=== PATIENT | female | born 1950 | race African-American/Black ===

== ENCOUNTER 2017-07-26 14:54 | Inpatient (IN) | payer MEDICARE, MEDICAID ==
[~2017-07-26] VITALS: Ht 162.6 cm; Wt 107.5 kg
[~2017-07-26 14:54] MED LIST: APIX5TAB PO; DILT120C61 PO; FURO40TA5 PO; METO-539 PO; POTA8TAB8 PO
[2017-07-26] MEDS ORDERED: SODIUM CHLORIDE 0.9% 1,000 ML IV ONE (15:49)
[2017-07-26] MEDS ORDERED: SODIUM CHLORIDE 0.9% 1000ML BAG (SEPSIS BOLUS) IV ONE (16:00)
[2017-07-26 16:16] LABS: BASOPHILS % 0.1 % (0.0-2.0); EOSINOPHILS % 1.7 % (0.0-5.0); HEMATOCRIT. 29.2 % (36.0-48.0); HEMOGLOBIN. 9.4 g/dL (12.0-16.0); LYMPHOCYTES % 32.1 % (20.0-50.0); MEAN CORPUSCULAR VOLUME 83.7 fL (81.0-99.0); MEAN PLATELET VOLUME 7.4 fl (7.4-10.4); MONOCYTES % 12.1 % (2.0-8.0); PLATELET 228 x1000/uL (130-400); RED BLOOD CELL COUNT 3.48 mill/uL (4.2-5.4); RED CELL DISTRIBUTION WIDTH 20.9 % (11.6-14.6)
[2017-07-26 16:21] LABS: PROTHROMBIN TIME 10.3 sec (9.4-11.6)
[2017-07-26 16:36] LABS: KETONES URINE NEGATIVE (NEGATIVE); LEUKOCYTE ESTERASE URINE NEGATIVE (NEGATIVE); NITRITE URINE NEGATIVE (NEGATIVE); OCCULT BLOOD URINE NEGATIVE (NEGATIVE); PROTEIN URINE NEGATIVE (NEGATIVE); SPECIFIC GRAVITY URINE 1.018 (1.005-1.030)
[2017-07-26 16:39] LABS: CHLORIDE 107 mEq/L (98-107); TROPONIN I < 0.02 ng/mL (0.00-0.04)
[2017-07-26 16:41] LABS: CLARITY URINE CLEAR (CLEAR); COLOR URINE YELLOW (YELLOW)
[2017-07-26] MEDS ORDERED: CALCIUM GLUCONATE 100MG/ML 10ML VIAL IV ONE (17:45)
[2017-07-26] MEDS ORDERED: CALCIUM GLUCONATE 1,000 MG in SODIUM CHLORIDE 0.9% 50 ML IV SCH (17:45)
[2017-07-26 21:00] VITALS: BP 117/66
[2017-07-26] MEDS ORDERED: HYDROCODONE/ACETAMINOPHEN 5/325MG TABLET PO ONE (21:45)
[2017-07-26 22:30] VITALS: BP 117/66
[2017-07-27] VITALS (13 sets, daily range): BP systolic 77–125; BP diastolic 34–94
[2017-07-27] MEDS ORDERED: SODIUM CHLORIDE 0.9% 200 ML IV NR (12:15)
[2017-07-27] MEDS: SODIUM CHLORIDE 0.9% 1,000 ML IV SCH (12:44)
[2017-07-27 13:21] LABS: BASOPHILS % 0.1 % (0.0-2.0); EOSINOPHILS % 1.4 % (0.0-5.0); HEMATOCRIT. 25.7 % (36.0-48.0); HEMOGLOBIN. 8.3 g/dL (12.0-16.0); LYMPHOCYTES % 36.1 % (20.0-50.0); MEAN CORPUSCULAR HEMOGLOBIN 27.2 pg (28.0-32.0); MEAN CORPUSCULAR VOLUME 84.2 fL (81.0-99.0); MEAN PLATELET VOLUME 7.5 fl (7.4-10.4); MONOCYTES % 13.3 % (2.0-8.0); NEUTROPHILS % 49.1 % (40.0-76.0); PLATELET 207 x1000/uL (130-400); RED BLOOD CELL COUNT 3.05 mill/uL (4.2-5.4); RED CELL DISTRIBUTION WIDTH 20.9 % (11.6-14.6)
[2017-07-27 13:35] LABS: CHLORIDE 111 mEq/L (98-107); CREATINE KINASE 27 IU/L (26-192); CREATINE KINASE MB FRACTION 0.8 ng/mL (0.5-3.6); TROPONIN I < 0.02 ng/mL (0.00-0.04)
[2017-07-27 13:45] LABS: DIGOXIN 0.2 ng/mL (0.9-2.0)
[2017-07-27] MEDS: NICOTINE 14MG PATCH TD SCH (13:55)
[2017-07-27] MEDS ORDERED: BUDE6HFA INH (14:19)
[2017-07-27] MEDS ORDERED: HYDR-4005 PO (14:19)
[2017-07-27] MEDS ORDERED: ALBU18HF2 IH (14:19)
[2017-07-27] MEDS ORDERED: TADA20TA31 PO (14:19)
[2017-07-27] MEDS ORDERED: BENA1TAB18 PO (14:19)
[2017-07-27] MEDS ORDERED: AMBR10TA3 PO (14:19)
[2017-07-27] MEDS ORDERED: NICO-645 TD (14:22)
[2017-07-27] MEDS: HYDROCODONE/APAP 7.5/325MG 1 TAB TABLET PO PRN (14:39)
[2017-07-27] MEDS ORDERED: LORAZEPAM 2MG/ML CPJ IV PRN (15:00)
[2017-07-27] MEDS ORDERED: IPRATROPIUM/ALBUTEROL 0.5-3(2.5)MG/3ML NEB HHN PRN (15:00)
[2017-07-27] MEDS: FOLIC ACID 1MG TABLET PO SCH (16:55)
[2017-07-27] MEDS: THIAMINE HCL 100MG TABLET PO SCH (16:55)
[2017-07-27] MEDS: MULTIVITAMINS,THER W-MINERALS TABLET PO SCH (16:55)
[2017-07-27] MEDS: MIDODRINE HCL 2.5MG TABLET PO SCH (17:55)
[2017-07-27] MEDS ORDERED: PHENYLEPHRINE 10 MG in DEXT 5% WATER 249 ML IV PRN (19:00)
[2017-07-27] MEDS ORDERED: DIGOXIN 500MCG/2ML AMP IV NR (19:00)
[2017-07-27] MEDS ORDERED: DILTIAZEM HCL 125 MG in DEXT 5% WATER 100 ML IV PRN (19:00)
[2017-07-27] MEDS ORDERED: LEVOFLOXACIN 250MG PREMIX 50 ML IV SCH (20:00)
[2017-07-27 20:15] LABS: HEMATOCRIT 26.8 % (36.0-48.0); HEMOGLOBIN 8.8 g/dL (12.0-16.0)
[2017-07-27 20:27] LABS: CREATINE KINASE 33 IU/L (26-192); CREATINE KINASE MB FRACTION 0.9 ng/mL (0.5-3.6); TROPONIN I < 0.02 ng/mL (0.00-0.04)
[2017-07-27] MEDS: BUDESONIDE 0.5MG/2ML NEB HHN SCH (21:32)
[2017-07-27] MEDS: IPRATROPIUM/ALBUTEROL 0.5-3(2.5)MG/3ML NEB HHN SCH (21:32)
[2017-07-27] MEDS: DILTIAZEM HCL 125 MG in SODIUM CHLORIDE 0.9% 100 ML IV PRN (23:47)
[2017-07-28] VITALS (86 sets, daily range): BP systolic 61–169; BP diastolic 16–113
[2017-07-28] MEDS: HYDROCODONE/APAP 7.5/325MG 1 TAB TABLET PO PRN ×4 (02:04→21:51)
[2017-07-28] MEDS: IPRATROPIUM/ALBUTEROL 0.5-3(2.5)MG/3ML NEB HHN SCH ×4 (02:22→20:31)
[2017-07-28] MEDS ORDERED: PHENYLEPHRINE 40 MG in DEXT 5% WATER 250 ML IV PRN (04:00)
[2017-07-28 05:44] LABS: BASOPHILS % 0.3 % (0.0-2.0); EOSINOPHILS % 1.5 % (0.0-5.0); HEMATOCRIT. 27.2 % (36.0-48.0); HEMOGLOBIN. 8.9 g/dL (12.0-16.0); LYMPHOCYTES % 23.7 % (20.0-50.0); MEAN CORPUSCULAR HEMOGLOBIN 27.8 pg (28.0-32.0); MEAN CORPUSCULAR VOLUME 84.9 fL (81.0-99.0); MEAN PLATELET VOLUME 7.6 fl (7.4-10.4); MONOCYTES % 12.3 % (2.0-8.0); NEUTROPHILS % 62.2 % (40.0-76.0); PLATELET 220 x1000/uL (130-400); RED CELL DISTRIBUTION WIDTH 20.8 % (11.6-14.6)
[2017-07-28 06:08] LABS: CHLORIDE 110 mEq/L (98-107)
[2017-07-28] MEDS: ACETAMINOPHEN 325MG TABLET PO PRN ×2 (06:38→17:02)
[2017-07-28] MEDS: SODIUM CHLORIDE 0.9% 1,000 ML IV SCH (07:14)
[2017-07-28] MEDS: FOLIC ACID 1MG TABLET PO SCH (08:35)
[2017-07-28] MEDS: THIAMINE HCL 100MG TABLET PO SCH (08:35)
[2017-07-28] MEDS: NICOTINE 14MG PATCH TD SCH (08:35)
[2017-07-28] MEDS: MULTIVITAMINS,THER W-MINERALS TABLET PO SCH (08:35)
[2017-07-28] MEDS: MIDODRINE HCL 2.5MG TABLET PO SCH (08:39)
[2017-07-28] MEDS: BUDESONIDE 0.5MG/2ML NEB HHN SCH ×2 (08:44→20:24)
[2017-07-28] MEDS ORDERED: DIGOXIN 500MCG/2ML AMP IV NR (10:15)
[2017-07-28] MEDS: ENOXAPARIN 100MG/ML SYR SUBCUT SCH ×2 (11:35→20:45)
[2017-07-28] MEDS: DILTIAZEM HCL 125 MG in SODIUM CHLORIDE 0.9% 100 ML IV PRN ×2 (15:04→23:35)
[2017-07-28] MEDS ORDERED: LEVOFLOXACIN 500MG PREMIX 100 ML IV SCH (16:00)
[2017-07-28] MEDS: CEFAZOLIN 1000MG PREMIX 50 ML IV SCH (18:05)
[2017-07-28] MEDS ORDERED: DILTIAZEM HCL 5MG/ML 5ML VIAL IV NR (21:55)
[2017-07-28] MEDS ORDERED: FUROSEMIDE 40MG/4ML VIAL IVP NR (23:00)
[2017-07-28 23:39] LABS: BG BASE EXCESS -3.7 mmol/L (-2.0-2.0); BG CARBOXYHEMOGLOBIN 0.5 % (0.5-1.5); BG DEOXYHEMOGLOBIN 9.4 % (0.0-5.0); BG FRACTION INSPIRED OXYGEN 55; BG HCO3 ACT 25.3 mmol/L (22.0-26.0); BG METHEMOGLOBIN 0.3 % (0.0-1.5); BG OXYGEN SATURATION 90.5 % (92.0-98.5); BG OXYHEMOGLOBIN 89.8 % (94.0-97.0); BG PCO2 66.8 mmHg (35.0-45.0); BG PH 7.197 (7.350-7.450); BG PO2 70.7 mmHg (75.0-100.0); BG SAMPLE SITE LEFT RADIAL; BG TOTAL HEMOGLOBIN 11.5 g/dL (12.0-18.0); BG VENT MODE MASK - BIPAP
[2017-07-29] VITALS (91 sets, daily range): BP systolic 89–176; BP diastolic 34–104
[2017-07-29] MEDS ORDERED: NOREPINEPHRINE 32 MG in DEXT 5% WATER 500 ML IV PRN (00:15)
[2017-07-29 01:31] LABS: BG CARBOXYHEMOGLOBIN 0.3 % (0.5-1.5); BG FRACTION INSPIRED OXYGEN 90; BG HCO3 ACT 25.8 mmol/L (22.0-26.0); BG METHEMOGLOBIN 0.4 % (0.0-1.5); BG OXYHEMOGLOBIN 98.3 % (94.0-97.0); BG PCO2 66.5 mmHg (35.0-45.0); BG PH 7.207 (7.350-7.450); BG PO2 190.7 mmHg (75.0-100.0); BG SAMPLE SITE RIGHT RADIAL; BG TIDAL VOLUME(mL) 500 mL; BG VENT MODE VENT - A/C; BG VENT RATE 16 set
[2017-07-29] MEDS: PROPOFOL 10MG/ML 100ML 100 ML IV PRN ×5 (01:36→21:17)
[2017-07-29] MEDS ORDERED: DIGOXIN 500MCG/2ML AMP IV SCH (01:45)
[2017-07-29] MEDS: CEFAZOLIN 1000MG PREMIX 50 ML IV SCH ×3 (02:04→18:03)
[2017-07-29 05:57] LABS: BASOPHILS % 0.3 % (0.0-2.0); HEMATOCRIT. 28.8 % (36.0-48.0); HEMOGLOBIN. 9.1 g/dL (12.0-16.0); MEAN CORPUSCULAR HEMOGLOBIN 27.1 pg (28.0-32.0); MEAN CORPUSCULAR VOLUME 85.5 fL (81.0-99.0); MEAN PLATELET VOLUME 7.7 fl (7.4-10.4); MONOCYTES % 12.2 % (2.0-8.0); NEUTROPHILS % 78.5 % (40.0-76.0); PLATELET 214 x1000/uL (130-400); RED BLOOD CELL COUNT 3.37 mill/uL (4.2-5.4); RED CELL DISTRIBUTION WIDTH 20.4 % (11.6-14.6)
[2017-07-29] MEDS ORDERED: SUCCINYLCHOLINE CHLORIDE 200MG/10ML VIAL IV ONE (06:00)
[2017-07-29] MEDS ORDERED: ETOMIDATE 2MG/ML 10ML VIAL IV ONE (06:00)
[2017-07-29] MEDS ORDERED: FUROSEMIDE 40MG/4ML VIAL IVP SCH ×2 (06:45→08:30)
[2017-07-29 07:14] LABS: BG BASE EXCESS -0.2 mmol/L (-2.0-2.0); BG CARBOXYHEMOGLOBIN 0.4 % (0.5-1.5); BG DEOXYHEMOGLOBIN 3.8 % (0.0-5.0); BG HCO3 ACT 24.4 mmol/L (22.0-26.0); BG METHEMOGLOBIN 0.5 % (0.0-1.5); BG OXYGEN SATURATION 96.2 % (92.0-98.5); BG OXYHEMOGLOBIN 95.3 % (94.0-97.0); BG PCO2 39.7 mmHg (35.0-45.0); BG PH 7.407 (7.350-7.450); BG PO2 79.5 mmHg (75.0-100.0); BG SAMPLE SITE RIGHT BRACHIAL; BG TIDAL VOLUME(mL) 500 mL; BG TOTAL HEMOGLOBIN 9.8 g/dL (12.0-18.0); BG VENT MODE VENT - A/C; BG VENT RATE 16 set
[2017-07-29] MEDS: BUDESONIDE 0.5MG/2ML NEB HHN SCH ×2 (08:09→20:43)
[2017-07-29] MEDS: IPRATROPIUM/ALBUTEROL 0.5-3(2.5)MG/3ML NEB HHN SCH ×2 (08:10)
[2017-07-29] MEDS: MULTIVITAMINS,THER W-MINERALS TABLET PO SCH (09:31)
[2017-07-29] MEDS: FOLIC ACID 1MG TABLET PO SCH (09:31)
[2017-07-29] MEDS: PANTOPRAZOLE SODIUM 40 MG/VIAL IV SCH (09:31)
[2017-07-29] MEDS: NICOTINE 14MG PATCH TD SCH (09:31)
[2017-07-29] MEDS: THIAMINE HCL 100MG TABLET PO SCH (09:31)
[2017-07-29] MEDS: ENOXAPARIN 100MG/ML SYR SUBCUT SCH (09:31)
[2017-07-29] MEDS: DILTIAZEM HCL 125 MG in SODIUM CHLORIDE 0.9% 100 ML IV PRN (10:25)
[2017-07-29] MEDS: IPRATROPIUM BROMIDE (0.02%) 0.5MG/2.5ML NEB HHN SCH ×3 (12:21→20:44)
[2017-07-29] MEDS ORDERED: LORAZEPAM 2MG/ML CPJ IV PRN (15:00)
[2017-07-29] MEDS: DIGOXIN 500MCG/2ML AMP IV SCH (18:03)
[2017-07-29] MEDS: HYDROCODONE/APAP 7.5/325MG 1 TAB TABLET PO PRN (18:50)
[2017-07-29] MEDS: FUROSEMIDE 40MG/4ML VIAL IVP SCH (21:13)
[2017-07-29] MEDS: ENOXAPARIN 120MG/0.8ML SYR SUBCUT SCH (21:15)
[2017-07-30] VITALS (91 sets, daily range): BP systolic 68–128; BP diastolic 26–80
[2017-07-30] MEDS: IPRATROPIUM BROMIDE (0.02%) 0.5MG/2.5ML NEB HHN SCH ×7 (00:41→23:57)
[2017-07-30] MEDS: PROPOFOL 10MG/ML 100ML 100 ML IV PRN ×5 (02:09→20:41)
[2017-07-30 05:41] LABS: BASOPHILS % 0.7 % (0.0-2.0); EOSINOPHILS % 2.1 % (0.0-5.0); HEMATOCRIT. 28.8 % (36.0-48.0); HEMOGLOBIN. 9.2 g/dL (12.0-16.0); LYMPHOCYTES % 29.2 % (20.0-50.0); MEAN CORPUSCULAR HEMOGLOBIN 27.1 pg (28.0-32.0); MEAN CORPUSCULAR VOLUME 84.5 fL (81.0-99.0); MEAN PLATELET VOLUME 7.5 fl (7.4-10.4); MONOCYTES % 11.6 % (2.0-8.0); NEUTROPHILS % 56.4 % (40.0-76.0); PLATELET 223 x1000/uL (130-400); RED BLOOD CELL COUNT 3.41 mill/uL (4.2-5.4); RED CELL DISTRIBUTION WIDTH 21.1 % (11.6-14.6)
[2017-07-30] MEDS: CEFAZOLIN 1000MG PREMIX 50 ML IV SCH ×3 (05:50→18:12)
[2017-07-30] MEDS: DILTIAZEM HCL 125 MG in SODIUM CHLORIDE 0.9% 100 ML IV PRN (06:11)
[2017-07-30 06:18] LABS: DIGOXIN 1.7 ng/mL (0.9-2.0)
[2017-07-30 08:02] LABS: BG BASE EXCESS 4.2 mmol/L (-2.0-2.0); BG CARBOXYHEMOGLOBIN 0.2 % (0.5-1.5); BG DEOXYHEMOGLOBIN 6.1 % (0.0-5.0); BG FRACTION INSPIRED OXYGEN 60; BG HCO3 ACT 28.7 mmol/L (22.0-26.0); BG METHEMOGLOBIN 0.3 % (0.0-1.5); BG OXYGEN SATURATION 93.9 % (92.0-98.5); BG OXYHEMOGLOBIN 93.4 % (94.0-97.0); BG PCO2 42.9 mmHg (35.0-45.0); BG PH 7.443 (7.350-7.450); BG PO2 69.3 mmHg (75.0-100.0); BG SAMPLE SITE RIGHT BRACHIAL; BG TIDAL VOLUME(mL) 500 mL; BG TOTAL HEMOGLOBIN 9.4 g/dL (12.0-18.0); BG VENT MODE VENT - A/C; BG VENT RATE 12 set
[2017-07-30] MEDS: BUDESONIDE 0.5MG/2ML NEB HHN SCH ×2 (08:14→19:49)
[2017-07-30] MEDS: ENOXAPARIN 120MG/0.8ML SYR SUBCUT SCH ×2 (08:34→21:23)
[2017-07-30] MEDS: DILTIAZEM HCL 60MG TABLET PO SCH ×3 (08:34→15:33)
[2017-07-30] MEDS: PANTOPRAZOLE SODIUM 40 MG/VIAL IV SCH (08:34)
[2017-07-30] MEDS: MULTIVITAMINS,THER W-MINERALS TABLET PO SCH (08:34)
[2017-07-30] MEDS: FUROSEMIDE 40MG/4ML VIAL IVP SCH ×2 (08:34→20:42)
[2017-07-30] MEDS: THIAMINE HCL 100MG TABLET PO SCH (08:34)
[2017-07-30] MEDS: FOLIC ACID 1MG TABLET PO SCH (08:35)
[2017-07-30] MEDS: HYDROCODONE/APAP 7.5/325MG 1 TAB TABLET PO PRN ×2 (08:35→15:34)
[2017-07-30] MEDS: NICOTINE 14MG PATCH TD SCH (08:36)
[2017-07-30 13:54] LABS: BG BASE EXCESS 5.1 mmol/L (-2.0-2.0); BG CARBOXYHEMOGLOBIN 0.1 % (0.5-1.5); BG DEOXYHEMOGLOBIN 8.8 % (0.0-5.0); BG FRACTION INSPIRED OXYGEN 45; BG HCO3 ACT 29.2 mmol/L (22.0-26.0); BG METHEMOGLOBIN 0.3 % (0.0-1.5); BG OXYGEN SATURATION 91.2 % (92.0-98.5); BG OXYHEMOGLOBIN 90.8 % (94.0-97.0); BG PCO2 40.8 mmHg (35.0-45.0); BG PH 7.472 (7.350-7.450); BG PO2 60.3 mmHg (75.0-100.0); BG SAMPLE SITE RIGHT RADIAL; BG TIDAL VOLUME(mL) 500 mL; BG TOTAL HEMOGLOBIN 10.8 g/dL (12.0-18.0); BG VENT MODE VENT - A/C; BG VENT RATE 12 set
[2017-07-30] MEDS: DIGOXIN 500MCG/2ML AMP IV SCH (18:12)
[2017-07-30] MEDS: MORPHINE SULFATE 2 MG/ML CPJ (NOT FOR IM USE) IV PRN (20:41)
[2017-07-31] VITALS (92 sets, daily range): BP systolic 88–134; BP diastolic 51–85
[2017-07-31] MEDS: PROPOFOL 10MG/ML 100ML 100 ML IV PRN ×5 (00:40→18:30)
[2017-07-31] MEDS: DILTIAZEM HCL 125 MG in SODIUM CHLORIDE 0.9% 100 ML IV PRN (00:44)
[2017-07-31] MEDS: CEFAZOLIN 1000MG PREMIX 50 ML IV SCH ×3 (02:09→17:23)
[2017-07-31] MEDS: IPRATROPIUM BROMIDE (0.02%) 0.5MG/2.5ML NEB HHN SCH ×5 (03:57→20:42)
[2017-07-31] MEDS: DILTIAZEM HCL 60MG TABLET PO SCH ×3 (05:15→21:01)
[2017-07-31 06:06] LABS: BASOPHILS % 0.6 % (0.0-2.0); EOSINOPHILS % 2.1 % (0.0-5.0); HEMATOCRIT. 28.3 % (36.0-48.0); HEMOGLOBIN. 9.2 g/dL (12.0-16.0); LYMPHOCYTES % 31.2 % (20.0-50.0); MEAN CORPUSCULAR HEMOGLOBIN 27.3 pg (28.0-32.0); MEAN PLATELET VOLUME 7.7 fl (7.4-10.4); MONOCYTES % 9.4 % (2.0-8.0); NEUTROPHILS % 56.7 % (40.0-76.0); PLATELET 250 x1000/uL (130-400); RED BLOOD CELL COUNT 3.37 mill/uL (4.2-5.4); RED CELL DISTRIBUTION WIDTH 20.3 % (11.6-14.6)
[2017-07-31 06:40] LABS: CHLORIDE 106 mEq/L (98-107)
[2017-07-31] MEDS: MORPHINE SULFATE 2 MG/ML CPJ (NOT FOR IM USE) IV PRN ×2 (06:49→20:20)
[2017-07-31 07:01] LABS: DIGOXIN 1.6 ng/mL (0.9-2.0)
[2017-07-31 07:24] LABS: BG BASE EXCESS 5.4 mmol/L (-2.0-2.0); BG CARBOXYHEMOGLOBIN 0.1 % (0.5-1.5); BG DEOXYHEMOGLOBIN 7.2 % (0.0-5.0); BG METHEMOGLOBIN 0.2 % (0.0-1.5); BG OXYGEN SATURATION 92.8 % (92.0-98.5); BG OXYHEMOGLOBIN 92.5 % (94.0-97.0); BG PCO2 44.2 mmHg (35.0-45.0); BG SAMPLE SITE RIGHT RADIAL; BG TIDAL VOLUME(mL) 500 mL; BG TOTAL HEMOGLOBIN 10.7 g/dL (12.0-18.0); BG VENT MODE VENT - A/C; BG VENT RATE 12 set
[2017-07-31] MEDS: FOLIC ACID 1MG TABLET PO SCH (09:35)
[2017-07-31] MEDS: MULTIVITAMINS,THER W-MINERALS TABLET PO SCH (09:35)
[2017-07-31] MEDS: PANTOPRAZOLE SODIUM 40 MG/VIAL IV SCH (09:35)
[2017-07-31] MEDS: FUROSEMIDE 40MG/4ML VIAL IVP SCH ×2 (09:35→20:19)
[2017-07-31] MEDS: THIAMINE HCL 100MG TABLET PO SCH (09:35)
[2017-07-31] MEDS: NICOTINE 14MG PATCH TD SCH (09:36)
[2017-07-31] MEDS: ENOXAPARIN 120MG/0.8ML SYR SUBCUT SCH ×2 (09:37→20:57)
[2017-07-31] MEDS: HYDROCODONE/APAP 7.5/325MG 1 TAB TABLET PO PRN ×2 (10:59→17:45)
[2017-07-31] MEDS: DIGOXIN 500MCG/2ML AMP IV SCH (17:23)
[2017-08-01] VITALS (93 sets, daily range): BP systolic 92–140; BP diastolic 45–78
[2017-08-01] MEDS: IPRATROPIUM BROMIDE (0.02%) 0.5MG/2.5ML NEB HHN SCH ×6 (00:40→20:27)
[2017-08-01] MEDS: MORPHINE SULFATE 2 MG/ML CPJ (NOT FOR IM USE) IV PRN (02:13)
[2017-08-01] MEDS: HYDROCODONE/APAP 7.5/325MG 1 TAB TABLET PO PRN ×2 (02:39→08:57)
[2017-08-01] MEDS: CEFAZOLIN 1000MG PREMIX 50 ML IV SCH ×3 (02:39→17:40)
[2017-08-01] MEDS: DILTIAZEM HCL 60MG TABLET PO SCH ×3 (07:01→21:31)
[2017-08-01 07:45] LABS: BG BASE EXCESS 5.1 mmol/L (-2.0-2.0); BG DEOXYHEMOGLOBIN 4.8 % (0.0-5.0); BG HCO3 ACT 29.4 mmol/L (22.0-26.0); BG METHEMOGLOBIN 0.1 % (0.0-1.5); BG OXYGEN SATURATION 95.2 % (92.0-98.5); BG OXYHEMOGLOBIN 95.1 % (94.0-97.0); BG PCO2 42.4 mmHg (35.0-45.0); BG PH 7.459 (7.350-7.450); BG PO2 77.7 mmHg (75.0-100.0); BG SAMPLE SITE RIGHT RADIAL; BG TIDAL VOLUME(mL) 500 mL; BG TOTAL HEMOGLOBIN 10.2 g/dL (12.0-18.0); BG VENT MODE VENT - A/C; BG VENT RATE 12 set
[2017-08-01] MEDS: THIAMINE HCL 100MG TABLET PO SCH (08:54)
[2017-08-01] MEDS: PANTOPRAZOLE SODIUM 40 MG/VIAL IV SCH (08:54)
[2017-08-01] MEDS: FOLIC ACID 1MG TABLET PO SCH (08:54)
[2017-08-01] MEDS: MULTIVITAMINS,THER W-MINERALS TABLET PO SCH (08:54)
[2017-08-01] MEDS: ENOXAPARIN 120MG/0.8ML SYR SUBCUT SCH ×2 (08:58→21:29)
[2017-08-01] MEDS ORDERED: LIDOCAINE HCL/PF 1% 2ML VIAL ONE (09:00)
[2017-08-01] MEDS: FUROSEMIDE 40MG/4ML VIAL IVP SCH ×2 (09:16→21:28)
[2017-08-01] MEDS: NICOTINE 14MG PATCH TD SCH (09:21)
[2017-08-01] MEDS: PROPOFOL 10MG/ML 100ML 100 ML IV PRN (11:20)
[2017-08-01] MEDS: DIGOXIN 500MCG/2ML AMP IV SCH (17:40)
[2017-08-01 18:27] LABS: BG BASE EXCESS 11.2 mmol/L (-2.0-2.0); BG CARBOXYHEMOGLOBIN 0.5 % (0.5-1.5); BG DEOXYHEMOGLOBIN 4.8 % (0.0-5.0); BG HCO3 ACT 36.7 mmol/L (22.0-26.0); BG METHEMOGLOBIN 0.3 % (0.0-1.5); BG OXYGEN SATURATION 95.2 % (92.0-98.5); BG OXYHEMOGLOBIN 94.4 % (94.0-97.0); BG PCO2 53.5 mmHg (35.0-45.0); BG PH 7.454 (7.350-7.450); BG PO2 78.3 mmHg (75.0-100.0); BG PRESSURE SUPPORT 14; BG SAMPLE SITE RIGHT RADIAL; BG TIDAL VOLUME(mL) 500 mL; BG TOTAL HEMOGLOBIN 10.5 g/dL (12.0-18.0); BG VENT MODE VENT - SIMV; BG VENT RATE 10 set
[2017-08-01] MEDS: HYDROCODONE/APAP 7.5/325MG 1 TAB TABLET NG PRN (21:31)
[2017-08-02] VITALS (72 sets, daily range): BP systolic 84–161; BP diastolic 49–101
[2017-08-02] MEDS: IPRATROPIUM BROMIDE (0.02%) 0.5MG/2.5ML NEB HHN SCH ×7 (00:20→23:34)
[2017-08-02] MEDS: CEFAZOLIN 1000MG PREMIX 50 ML IV SCH ×3 (02:26→18:01)
[2017-08-02] MEDS: HYDROCODONE/APAP 7.5/325MG 1 TAB TABLET NG PRN ×3 (05:05→23:50)
[2017-08-02] MEDS: DILTIAZEM HCL 60MG TABLET PO SCH ×3 (06:23→22:48)
[2017-08-02 08:07] LABS: BG DEOXYHEMOGLOBIN 5.3 % (0.0-5.0); BG FRACTION INSPIRED OXYGEN 40; BG HCO3 ACT 35.2 mmol/L (22.0-26.0); BG METHEMOGLOBIN 0.3 % (0.0-1.5); BG OXYGEN SATURATION 94.7 % (92.0-98.5); BG OXYHEMOGLOBIN 94.4 % (94.0-97.0); BG PCO2 50.6 mmHg (35.0-45.0); BG PO2 74.5 mmHg (75.0-100.0); BG PRESSURE SUPPORT 14; BG SAMPLE SITE RIGHT RADIAL; BG TIDAL VOLUME(mL) 500 mL; BG TOTAL HEMOGLOBIN 10.4 g/dL (12.0-18.0); BG VENT MODE VENT - SIMV; BG VENT RATE 10 set
[2017-08-02] MEDS: MULTIVITAMINS,THER W-MINERALS TABLET PO SCH (09:07)
[2017-08-02] MEDS: THIAMINE HCL 100MG TABLET PO SCH (09:07)
[2017-08-02] MEDS: FUROSEMIDE 40MG/4ML VIAL IVP SCH ×2 (09:07→21:35)
[2017-08-02] MEDS: PANTOPRAZOLE SODIUM 40 MG/VIAL IV SCH (09:07)
[2017-08-02] MEDS: FOLIC ACID 1MG TABLET PO SCH (09:07)
[2017-08-02] MEDS: ENOXAPARIN 120MG/0.8ML SYR SUBCUT SCH ×2 (09:08→21:24)
[2017-08-02] MEDS: NICOTINE 14MG PATCH TD SCH (09:08)
[2017-08-02 11:27] LABS: BG BASE EXCESS 12.3 mmol/L (-2.0-2.0); BG CARBOXYHEMOGLOBIN 0.6 % (0.5-1.5); BG FRACTION INSPIRED OXYGEN 40; BG HCO3 ACT 37.5 mmol/L (22.0-26.0); BG OXYHEMOGLOBIN 95.4 % (94.0-97.0); BG PCO2 51.8 mmHg (35.0-45.0); BG PH 7.477 (7.350-7.450); BG PO2 83.3 mmHg (75.0-100.0); BG PRESSURE SUPPORT 8; BG SAMPLE SITE RIGHT RADIAL; BG TOTAL HEMOGLOBIN 10.6 g/dL (12.0-18.0); BG VENT MODE VENT - CPAP
[2017-08-02] MEDS ORDERED: BISACODYL 10MG SUPP PR PRN (11:30)
[2017-08-02] MEDS: DOCUSATE SODIUM SUGAR FREE 100MG/10ML UDC NG SCH (12:15)
[2017-08-02] MEDS ORDERED: RACEPINEPHRINE 2.25% 0.5ML NEB VIAL HHN ONE (14:45)
[2017-08-02] MEDS ORDERED: RACEPINEPHRINE 2.25% 0.5ML NEB VIAL HHN PRN ×2 (14:45→15:15)
[2017-08-02] MEDS ORDERED: MORPHINE SULFATE 4 MG/ML CPJ (NOT FOR IM USE) IV PRN (14:45)
[2017-08-02] MEDS ORDERED: LORAZEPAM 2MG/ML CPJ IV ONE (14:45)
[2017-08-02] MEDS ORDERED: RACEPINEPHRINE 2.25% 0.5ML NEB VIAL HHN NR (15:15)
[2017-08-02] MEDS ORDERED: LORAZEPAM 2MG/ML CPJ IV NR (15:15)
[2017-08-02 15:36] LABS: BG BILEVEL POS AIRWAY PRESSURE 22/5; BG CARBOXYHEMOGLOBIN 0.6 % (0.5-1.5); BG DEOXYHEMOGLOBIN 10.8 % (0.0-5.0); BG FRACTION INSPIRED OXYGEN 80; BG METHEMOGLOBIN 0.4 % (0.0-1.5); BG OXYGEN SATURATION 89.1 % (92.0-98.5); BG OXYHEMOGLOBIN 88.2 % (94.0-97.0); BG PCO2 > 183.4 mmHg (35.0-45.0); BG PH 6.951 (7.350-7.450); BG SAMPLE SITE RIGHT BRACHIAL; BG TOTAL HEMOGLOBIN 12.3 g/dL (12.0-18.0); BG VENT MODE MASK - BIPAP
[2017-08-02] MEDS ORDERED: PROPOFOL 10MG/ML 100ML 100 ML IV PRN (15:45)
[2017-08-02 15:47] LABS: HEMATOCRIT 36.2 % (36.0-48.0); HEMOGLOBIN 11.3 g/dL (12.0-16.0); MEAN CORPUSCULAR VOLUME 86.3 fL (81.0-99.0); PLATELET 409 x1000/uL (130-400); RED CELL DISTRIBUTION WIDTH 19.7 % (11.6-14.6)
[2017-08-02 16:13] LABS: CHLORIDE 101 mEq/L (98-107)
[2017-08-02 16:54] LABS: BG BASE EXCESS 6.6 mmol/L (-2.0-2.0); BG CARBOXYHEMOGLOBIN 0.4 % (0.5-1.5); BG DEOXYHEMOGLOBIN 5.2 % (0.0-5.0); BG FRACTION INSPIRED OXYGEN 80; BG HCO3 ACT 33.1 mmol/L (22.0-26.0); BG METHEMOGLOBIN 0.3 % (0.0-1.5); BG OXYGEN SATURATION 94.8 % (92.0-98.5); BG OXYHEMOGLOBIN 94.1 % (94.0-97.0); BG PCO2 56.3 mmHg (35.0-45.0); BG PH 7.387 (7.350-7.450); BG PO2 76.7 mmHg (75.0-100.0); BG SAMPLE SITE RIGHT BRACHIAL; BG TIDAL VOLUME(mL) 550 mL; BG VENT MODE VENT - A/C; BG VENT RATE 20 set
[2017-08-02] MEDS: DILTIAZEM HCL 125 MG in SODIUM CHLORIDE 0.9% 100 ML IV PRN (17:14)
[2017-08-02] MEDS: DIGOXIN 500MCG/2ML AMP IV SCH (18:01)
[2017-08-03] VITALS (58 sets, daily range): BP systolic 89–140; BP diastolic 44–81
[2017-08-03] MEDS: CEFAZOLIN 1000MG PREMIX 50 ML IV SCH ×3 (02:18→17:27)
[2017-08-03] MEDS: IPRATROPIUM BROMIDE (0.02%) 0.5MG/2.5ML NEB HHN SCH ×5 (03:53→20:18)
[2017-08-03] MEDS: DILTIAZEM HCL 60MG TABLET PO SCH ×3 (05:05→21:19)
[2017-08-03] MEDS: HYDROCODONE/APAP 7.5/325MG 1 TAB TABLET NG PRN ×3 (05:36→21:22)
[2017-08-03 05:52] LABS: BASOPHILS % 0.3 % (0.0-2.0); EOSINOPHILS % 0.6 % (0.0-5.0); HEMATOCRIT. 30.2 % (36.0-48.0); HEMOGLOBIN. 9.5 g/dL (12.0-16.0); LYMPHOCYTES % 18.1 % (20.0-50.0); MEAN CORPUSCULAR HEMOGLOBIN 26.3 pg (28.0-32.0); MEAN CORPUSCULAR VOLUME 83.3 fL (81.0-99.0); MEAN PLATELET VOLUME 7.5 fl (7.4-10.4); MONOCYTES % 10.8 % (2.0-8.0); NEUTROPHILS % 70.2 % (40.0-76.0); PLATELET 346 x1000/uL (130-400); RED BLOOD CELL COUNT 3.62 mill/uL (4.2-5.4); RED CELL DISTRIBUTION WIDTH 19.3 % (11.6-14.6)
[2017-08-03 06:27] LABS: CHLORIDE 101 mEq/L (98-107)
[2017-08-03 08:06] LABS: BG BASE EXCESS 8.4 mmol/L (-2.0-2.0); BG CARBOXYHEMOGLOBIN 0.3 % (0.5-1.5); BG DEOXYHEMOGLOBIN 1.3 % (0.0-5.0); BG FRACTION INSPIRED OXYGEN 80; BG HCO3 ACT 31.7 mmol/L (22.0-26.0); BG OXYGEN SATURATION 98.7 % (92.0-98.5); BG OXYHEMOGLOBIN 98.4 % (94.0-97.0); BG PCO2 38.9 mmHg (35.0-45.0); BG PH 7.529 (7.350-7.450); BG PO2 132.1 mmHg (75.0-100.0); BG SAMPLE SITE RIGHT BRACHIAL; BG TIDAL VOLUME(mL) 550 mL; BG TOTAL HEMOGLOBIN 11.1 g/dL (12.0-18.0); BG VENT MODE VENT - A/C; BG VENT RATE 18 set
[2017-08-03] MEDS: THIAMINE HCL 100MG TABLET PO SCH (08:29)
[2017-08-03] MEDS: PANTOPRAZOLE SODIUM 40 MG/VIAL IV SCH (08:29)
[2017-08-03] MEDS ORDERED: POTASSIUM CHLORIDE 20MEQ/PACKET PO SCH (08:30)
[2017-08-03] MEDS: DOCUSATE SODIUM SUGAR FREE 100MG/10ML UDC NG SCH (08:30)
[2017-08-03] MEDS: MULTIVITAMINS,THER W-MINERALS TABLET PO SCH (08:30)
[2017-08-03] MEDS: FOLIC ACID 1MG TABLET PO SCH (08:30)
[2017-08-03] MEDS: NICOTINE 14MG PATCH TD SCH (08:31)
[2017-08-03] MEDS: ENOXAPARIN 120MG/0.8ML SYR SUBCUT SCH (08:32)
[2017-08-03] MEDS ORDERED: NON FORMULARY PATIENT HOME MED EA XX SCH (09:15)
[2017-08-03] MEDS ORDERED: PROPOFOL 10MG/ML 100ML 100 ML IV PRN ×2 (09:15→15:39)
[2017-08-03] MEDS: FUROSEMIDE 40MG/4ML VIAL IVP SCH ×2 (09:49→21:17)
[2017-08-03] MEDS: LETAIRIS 10MG TABLET PO SCH (11:22)
[2017-08-03] MEDS: MORPHINE SULFATE 4 MG/ML CPJ (NOT FOR IM USE) IV PRN ×2 (11:30→17:32)
[2017-08-03] MEDS: ALPRAZOLAM 0.25 MG TABLET PO SCH ×2 (13:35→21:20)
[2017-08-03] MEDS: METHYLPREDNISOLONE SOD SUCC 125 MG/2 ML VIAL IV SCH ×2 (13:35→21:18)
[2017-08-03] MEDS: BUDESONIDE 0.5MG/2ML NEB HHN SCH ×2 (15:58→20:18)
[2017-08-03] MEDS: DIGOXIN 500MCG/2ML AMP IV SCH (17:27)
[2017-08-03] MEDS: ENOXAPARIN 100MG/ML SYR SUBCUT SCH (21:18)
[2017-08-04] VITALS (48 sets, daily range): BP systolic 88–135; BP diastolic 30–86
[2017-08-04] MEDS: IPRATROPIUM BROMIDE (0.02%) 0.5MG/2.5ML NEB HHN SCH ×6 (00:29→19:59)
[2017-08-04] MEDS: CEFAZOLIN 1000MG PREMIX 50 ML IV SCH ×3 (02:37→18:16)
[2017-08-04] MEDS: HYDROCODONE/APAP 7.5/325MG 1 TAB TABLET NG PRN ×3 (04:44→22:37)
[2017-08-04 06:01] LABS: BASOPHILS % 0.1 % (0.0-2.0); HEMATOCRIT. 30.4 % (36.0-48.0); LYMPHOCYTES % 12.2 % (20.0-50.0); MEAN CORPUSCULAR HEMOGLOBIN 27.5 pg (28.0-32.0); MEAN PLATELET VOLUME 7.7 fl (7.4-10.4); MONOCYTES % 2.5 % (2.0-8.0); NEUTROPHILS % 85.2 % (40.0-76.0); PLATELET 360 x1000/uL (130-400); RED BLOOD CELL COUNT 3.62 mill/uL (4.2-5.4); RED CELL DISTRIBUTION WIDTH 19.4 % (11.6-14.6)
[2017-08-04 06:22] LABS: CHLORIDE 101 mEq/L (98-107)
[2017-08-04] MEDS: METHYLPREDNISOLONE SOD SUCC 125 MG/2 ML VIAL IV SCH ×3 (06:51→21:43)
[2017-08-04] MEDS: ALPRAZOLAM 0.25 MG TABLET PO SCH ×3 (06:56→21:44)
[2017-08-04] MEDS: DILTIAZEM HCL 60MG TABLET PO SCH ×3 (06:56→21:45)
[2017-08-04] MEDS: BUDESONIDE 0.5MG/2ML NEB HHN SCH ×2 (08:38→19:59)
[2017-08-04 08:45] LABS: BG BASE EXCESS 9.4 mmol/L (-2.0-2.0); BG CARBOXYHEMOGLOBIN 0.3 % (0.5-1.5); BG DEOXYHEMOGLOBIN 5.1 % (0.0-5.0); BG FRACTION INSPIRED OXYGEN 65; BG HCO3 ACT 33.9 mmol/L (22.0-26.0); BG METHEMOGLOBIN 0.3 % (0.0-1.5); BG OXYGEN SATURATION 94.9 % (92.0-98.5); BG OXYHEMOGLOBIN 94.3 % (94.0-97.0); BG PCO2 46.2 mmHg (35.0-45.0); BG PH 7.484 (7.350-7.450); BG PO2 77.2 mmHg (75.0-100.0); BG SAMPLE SITE RIGHT RADIAL; BG TIDAL VOLUME(mL) 550 mL; BG TOTAL HEMOGLOBIN 10.1 g/dL (12.0-18.0); BG VENT MODE VENT - A/C; BG VENT RATE 14 set
[2017-08-04] MEDS: POTASSIUM CHLORIDE 20MEQ TABLET SR PO SCH (09:00)
[2017-08-04] MEDS: LETAIRIS 10MG TABLET PO SCH (09:30)
[2017-08-04] MEDS: MORPHINE SULFATE 4 MG/ML CPJ (NOT FOR IM USE) IV PRN (09:47)
[2017-08-04] MEDS: MULTIVITAMINS,THER W-MINERALS TABLET PO SCH (09:47)
[2017-08-04] MEDS: FOLIC ACID 1MG TABLET PO SCH (09:47)
[2017-08-04] MEDS: PANTOPRAZOLE SODIUM 40 MG/VIAL IV SCH (09:47)
[2017-08-04] MEDS: THIAMINE HCL 100MG TABLET PO SCH (09:47)
[2017-08-04] MEDS: NICOTINE 14MG PATCH TD SCH (09:48)
[2017-08-04] MEDS: ENOXAPARIN 100MG/ML SYR SUBCUT SCH ×3 (09:48→21:43)
[2017-08-04] MEDS: DOCUSATE SODIUM SUGAR FREE 100MG/10ML UDC NG SCH (09:48)
[2017-08-04] MEDS: PROPOFOL 10MG/ML 100ML 100 ML IV PRN ×3 (11:00→18:17)
[2017-08-04] MEDS ORDERED: MAGNESIUM HYDROXIDE 400MG/5ML 30ML UDC PO PRN (13:00)
[2017-08-04] MEDS ORDERED: LACTULOSE 20G/30ML UDC PO SCH (13:00)
[2017-08-05] VITALS (37 sets, daily range): BP systolic 86–125; BP diastolic 52–80
[2017-08-05] MEDS: CEFAZOLIN 1000MG PREMIX 50 ML IV SCH ×3 (02:40→17:23)
[2017-08-05] MEDS: MORPHINE SULFATE 4 MG/ML CPJ (NOT FOR IM USE) IV PRN ×3 (03:09→22:59)
[2017-08-05] MEDS: IPRATROPIUM BROMIDE (0.02%) 0.5MG/2.5ML NEB HHN SCH ×6 (03:53→20:18)
[2017-08-05] MEDS: METHYLPREDNISOLONE SOD SUCC 125 MG/2 ML VIAL IV SCH ×3 (05:36→22:20)
[2017-08-05] MEDS: ALPRAZOLAM 0.25 MG TABLET PO SCH (05:36)
[2017-08-05] MEDS: DILTIAZEM HCL 60MG TABLET PO SCH ×3 (05:37→22:23)
[2017-08-05] MEDS: HYDROCODONE/APAP 7.5/325MG 1 TAB TABLET NG PRN ×3 (05:43→18:47)
[2017-08-05 05:50] LABS: BASOPHILS % 0.2 % (0.0-2.0); HEMATOCRIT. 30.3 % (36.0-48.0); HEMOGLOBIN. 9.8 g/dL (12.0-16.0); LYMPHOCYTES % 11.4 % (20.0-50.0); MEAN CORPUSCULAR HEMOGLOBIN 27.1 pg (28.0-32.0); MEAN PLATELET VOLUME 7.8 fl (7.4-10.4); NEUTROPHILS % 83.4 % (40.0-76.0); PLATELET 372 x1000/uL (130-400); RED CELL DISTRIBUTION WIDTH 19.4 % (11.6-14.6)
[2017-08-05 06:11] LABS: CHLORIDE 103 mEq/L (98-107)
[2017-08-05 07:41] LABS: BG BASE EXCESS 7.5 mmol/L (-2.0-2.0); BG CARBOXYHEMOGLOBIN 0.3 % (0.5-1.5); BG DEOXYHEMOGLOBIN 4.4 % (0.0-5.0); BG FRACTION INSPIRED OXYGEN 65; BG HCO3 ACT 31.9 mmol/L (22.0-26.0); BG METHEMOGLOBIN 0.1 % (0.0-1.5); BG OXYGEN SATURATION 95.6 % (92.0-98.5); BG OXYHEMOGLOBIN 95.2 % (94.0-97.0); BG PCO2 44.3 mmHg (35.0-45.0); BG PH 7.475 (7.350-7.450); BG PO2 85.1 mmHg (75.0-100.0); BG SAMPLE SITE RIGHT RADIAL; BG TIDAL VOLUME(mL) 550 mL; BG TOTAL HEMOGLOBIN 10.4 g/dL (12.0-18.0); BG VENT MODE VENT - A/C; BG VENT RATE 14 set
[2017-08-05] MEDS: BUDESONIDE 0.5MG/2ML NEB HHN SCH ×2 (07:55→20:18)
[2017-08-05] MEDS: DOCUSATE SODIUM SUGAR FREE 100MG/10ML UDC NG SCH (09:00)
[2017-08-05] MEDS ORDERED: FUROSEMIDE 40MG/4ML VIAL IVP SCH (09:00)
[2017-08-05] MEDS: PANTOPRAZOLE SODIUM 40 MG/VIAL IV SCH (09:36)
[2017-08-05] MEDS: POTASSIUM CHLORIDE 20MEQ TABLET SR PO SCH (09:36)
[2017-08-05] MEDS: MULTIVITAMINS,THER W-MINERALS TABLET PO SCH (09:36)
[2017-08-05] MEDS: FOLIC ACID 1MG TABLET PO SCH (09:36)
[2017-08-05] MEDS: THIAMINE HCL 100MG TABLET PO SCH (09:36)
[2017-08-05] MEDS: ENOXAPARIN 100MG/ML SYR SUBCUT SCH (09:37)
[2017-08-05] MEDS: NICOTINE 14MG PATCH TD SCH (09:37)
[2017-08-05] MEDS: LETAIRIS 10MG TABLET PO SCH (09:37)
[2017-08-05] MEDS ORDERED: PROPOFOL 10MG/ML 100ML 100 ML IV PRN (11:55)
[2017-08-05] MEDS: LORAZEPAM 0.5MG TABLET PO PRN (14:59)
[2017-08-06] VITALS (36 sets, daily range): BP systolic 96–151; BP diastolic 58–93
[2017-08-06] MEDS: IPRATROPIUM BROMIDE (0.02%) 0.5MG/2.5ML NEB HHN SCH ×5 (00:20→20:38)
[2017-08-06] MEDS: CEFAZOLIN 1000MG PREMIX 50 ML IV SCH ×3 (02:47→17:02)
[2017-08-06] MEDS: HYDROCODONE/APAP 7.5/325MG 1 TAB TABLET NG PRN ×3 (02:51→15:22)
[2017-08-06 05:48] LABS: HEMOGLOBIN. 9.5 g/dL (12.0-16.0); MEAN CORPUSCULAR HEMOGLOBIN 26.7 pg (28.0-32.0); MEAN CORPUSCULAR VOLUME 84.1 fL (81.0-99.0); MEAN PLATELET VOLUME 7.8 fl (7.4-10.4); PLATELET 381 x1000/uL (130-400); RED BLOOD CELL COUNT 3.57 mill/uL (4.2-5.4); RED CELL DISTRIBUTION WIDTH 19.1 % (11.6-14.6)
[2017-08-06 06:16] LABS: CHLORIDE 107 mEq/L (98-107)
[2017-08-06 06:27] LABS: DIGOXIN 1.2 ng/mL (0.9-2.0)
[2017-08-06] MEDS: MORPHINE SULFATE 4 MG/ML CPJ (NOT FOR IM USE) IV PRN ×2 (06:55→20:04)
[2017-08-06 06:56] LABS: BG BASE EXCESS 8.2 mmol/L (-2.0-2.0); BG CARBOXYHEMOGLOBIN 0.3 % (0.5-1.5); BG DEOXYHEMOGLOBIN 2.8 % (0.0-5.0); BG HCO3 ACT 33.7 mmol/L (22.0-26.0); BG METHEMOGLOBIN 0.2 % (0.0-1.5); BG OXYGEN SATURATION 97.2 % (92.0-98.5); BG OXYHEMOGLOBIN 96.7 % (94.0-97.0); BG PCO2 51.1 mmHg (35.0-45.0); BG PH 7.437 (7.350-7.450); BG PO2 99.3 mmHg (75.0-100.0); BG SAMPLE SITE RIGHT RADIAL; BG TIDAL VOLUME(mL) 550 mL; BG TOTAL HEMOGLOBIN 11.6 g/dL (12.0-18.0); BG VENT MODE VENT - A/C; BG VENT RATE 14 set
[2017-08-06] MEDS: DILTIAZEM HCL 60MG TABLET PO SCH ×3 (06:58→21:59)
[2017-08-06] MEDS: METHYLPREDNISOLONE SOD SUCC 125 MG/2 ML VIAL IV SCH ×3 (06:58→21:58)
[2017-08-06] MEDS: BUDESONIDE 0.5MG/2ML NEB HHN SCH ×2 (07:33→20:38)
[2017-08-06] MEDS: PANTOPRAZOLE SODIUM 40 MG/VIAL IV SCH (08:50)
[2017-08-06] MEDS: ENOXAPARIN 100MG/ML SYR SUBCUT SCH ×2 (08:50→21:58)
[2017-08-06] MEDS: THIAMINE HCL 100MG TABLET PO SCH (08:51)
[2017-08-06] MEDS: FOLIC ACID 1MG TABLET PO SCH (08:51)
[2017-08-06] MEDS: DOCUSATE SODIUM SUGAR FREE 100MG/10ML UDC NG SCH (08:51)
[2017-08-06] MEDS: POTASSIUM CHLORIDE 20MEQ TABLET SR PO SCH ×2 (08:51→09:00)
[2017-08-06] MEDS: MULTIVITAMINS,THER W-MINERALS TABLET PO SCH (08:52)
[2017-08-06] MEDS: NICOTINE 14MG PATCH TD SCH (08:53)
[2017-08-06] MEDS: LETAIRIS 10MG TABLET PO SCH (08:53)
[2017-08-06 09:55] LABS: PLATELET ESTIMATE NORMAL
[2017-08-06] MEDS ORDERED: LIDOCAINE HCL/PF 1% 2ML VIAL ONE (11:30)
[2017-08-07] VITALS (43 sets, daily range): BP systolic 97–163; BP diastolic 25–95
[2017-08-07] MEDS: IPRATROPIUM BROMIDE (0.02%) 0.5MG/2.5ML NEB HHN SCH ×7 (00:03→23:54)
[2017-08-07] MEDS: CEFAZOLIN 1000MG PREMIX 50 ML IV SCH ×3 (01:21→18:08)
[2017-08-07] MEDS: DILTIAZEM HCL 60MG TABLET PO SCH ×3 (06:00→21:06)
[2017-08-07] MEDS: METHYLPREDNISOLONE SOD SUCC 125 MG/2 ML VIAL IV SCH ×3 (06:00→23:37)
[2017-08-07] MEDS: MORPHINE SULFATE 4 MG/ML CPJ (NOT FOR IM USE) IV PRN ×2 (06:01)
[2017-08-07] MEDS: HYDROCODONE/APAP 7.5/325MG 1 TAB TABLET PO PRN ×3 (06:25→18:37)
[2017-08-07] MEDS: BUDESONIDE 0.5MG/2ML NEB HHN SCH ×2 (07:32→19:55)
[2017-08-07 08:02] LABS: BG BASE EXCESS 5.6 mmol/L (-2.0-2.0); BG CARBOXYHEMOGLOBIN 0.2 % (0.5-1.5); BG DEOXYHEMOGLOBIN 3.8 % (0.0-5.0); BG FRACTION INSPIRED OXYGEN 65; BG HCO3 ACT 30.2 mmol/L (22.0-26.0); BG METHEMOGLOBIN 0.3 % (0.0-1.5); BG OXYGEN SATURATION 96.2 % (92.0-98.5); BG OXYHEMOGLOBIN 95.7 % (94.0-97.0); BG PH 7.454 (7.350-7.450); BG PO2 88.1 mmHg (75.0-100.0); BG SAMPLE SITE RIGHT BRACHIAL; BG TIDAL VOLUME(mL) 550 mL; BG TOTAL HEMOGLOBIN 11.7 g/dL (12.0-18.0); BG VENT MODE VENT - A/C; BG VENT RATE 14 set
[2017-08-07] MEDS: POTASSIUM CHLORIDE 20MEQ TABLET SR PO SCH (08:25)
[2017-08-07] MEDS: LETAIRIS 10MG TABLET PO SCH (08:25)
[2017-08-07] MEDS: FOLIC ACID 1MG TABLET PO SCH (08:25)
[2017-08-07] MEDS: PANTOPRAZOLE SODIUM 40 MG/VIAL IV SCH (08:25)
[2017-08-07] MEDS: MULTIVITAMINS,THER W-MINERALS TABLET PO SCH (08:25)
[2017-08-07] MEDS: THIAMINE HCL 100MG TABLET PO SCH (08:25)
[2017-08-07] MEDS: ENOXAPARIN 100MG/ML SYR SUBCUT SCH ×2 (08:26→20:14)
[2017-08-07] MEDS: NICOTINE 14MG PATCH TD SCH (08:38)
[2017-08-07] MEDS: DOCUSATE SODIUM SUGAR FREE 100MG/10ML UDC NG SCH (08:40)
[2017-08-07] MEDS: LORAZEPAM 0.5MG TABLET PO PRN ×2 (12:03→23:39)
[2017-08-07 15:11] LABS: HEMATOCRIT. 32.8 % (36.0-48.0); HEMOGLOBIN. 10.4 g/dL (12.0-16.0); MEAN CORPUSCULAR HEMOGLOBIN 26.6 pg (28.0-32.0); MEAN CORPUSCULAR VOLUME 84.1 fL (81.0-99.0); MEAN PLATELET VOLUME 7.2 fl (7.4-10.4); PLATELET 408 x1000/uL (130-400); RED BLOOD CELL COUNT 3.89 mill/uL (4.2-5.4)
[2017-08-07 15:24] LABS: CHLORIDE 112 mEq/L (98-107)
[2017-08-07 17:17] LABS: PLATELET ESTIMATE NORMAL
[2017-08-07] MEDS ORDERED: TRAZODONE HCL 50MG TABLET PO SCH (21:00)
[2017-08-08] VITALS (55 sets, daily range): BP systolic 91–145; BP diastolic 46–86
[2017-08-08] MEDS: HYDROCODONE/APAP 7.5/325MG 1 TAB TABLET PO PRN ×3 (00:17→12:53)
[2017-08-08] MEDS: CEFAZOLIN 1000MG PREMIX 50 ML IV SCH ×3 (01:02→18:04)
[2017-08-08] MEDS: MORPHINE SULFATE 4 MG/ML CPJ (NOT FOR IM USE) IV PRN ×2 (03:16→10:39)
[2017-08-08] MEDS: IPRATROPIUM BROMIDE (0.02%) 0.5MG/2.5ML NEB HHN SCH ×5 (03:50→19:46)
[2017-08-08] MEDS: METHYLPREDNISOLONE SOD SUCC 125 MG/2 ML VIAL IV SCH ×4 (05:07→23:19)
[2017-08-08] MEDS: DILTIAZEM HCL 60MG TABLET PO SCH (05:07)
[2017-08-08 08:12] LABS: BG BASE EXCESS 2.7 mmol/L (-2.0-2.0); BG CARBOXYHEMOGLOBIN 0.3 % (0.5-1.5); BG DEOXYHEMOGLOBIN 10.1 % (0.0-5.0); BG FRACTION INSPIRED OXYGEN 40; BG HCO3 ACT 26.5 mmol/L (22.0-26.0); BG METHEMOGLOBIN 0.2 % (0.0-1.5); BG OXYGEN SATURATION 89.8 % (92.0-98.5); BG OXYHEMOGLOBIN 89.4 % (94.0-97.0); BG PCO2 37.4 mmHg (35.0-45.0); BG PH 7.468 (7.350-7.450); BG PO2 59.8 mmHg (75.0-100.0); BG SAMPLE SITE RIGHT RADIAL; BG TIDAL VOLUME(mL) 550 mL; BG TOTAL HEMOGLOBIN 10.2 g/dL (12.0-18.0); BG VENT MODE VENT - A/C; BG VENT RATE 12 set
[2017-08-08] MEDS: BUDESONIDE 0.5MG/2ML NEB HHN SCH ×2 (08:47→19:46)
[2017-08-08] MEDS: POTASSIUM CHLORIDE 20MEQ TABLET SR PO SCH (09:35)
[2017-08-08] MEDS: MULTIVITAMINS,THER W-MINERALS TABLET PO SCH (09:35)
[2017-08-08] MEDS: PANTOPRAZOLE SODIUM 40 MG/VIAL IV SCH (09:35)
[2017-08-08] MEDS: FOLIC ACID 1MG TABLET PO SCH (09:35)
[2017-08-08] MEDS: THIAMINE HCL 100MG TABLET PO SCH (09:35)
[2017-08-08] MEDS: ENOXAPARIN 100MG/ML SYR SUBCUT SCH ×2 (09:35→20:24)
[2017-08-08] MEDS: DOCUSATE SODIUM SUGAR FREE 100MG/10ML UDC NG SCH (09:36)
[2017-08-08] MEDS: LETAIRIS 10MG TABLET PO SCH (09:36)
[2017-08-08] MEDS: NICOTINE 14MG PATCH TD SCH (09:37)
[2017-08-08] MEDS ORDERED: DEXTROSE 50% WATER 50ML SYRINGE IV PRN (10:45)
[2017-08-08] MEDS ORDERED: PROPOFOL 10MG/ML 100ML 100 ML IV PRN (11:15)
[2017-08-08] MEDS: BLOOD SUGAR DIAGNOSTIC STRIP TEST SCH ×3 (11:47→20:32)
[2017-08-08] MEDS: INSULIN LISPRO 100 UNITS/ML SUBCUT SCH ×3 (12:14→20:25)
[2017-08-08] MEDS ORDERED: DILTIAZEM HCL 90MG TABLET PO SCH (14:00)
[2017-08-08] MEDS ORDERED: MAGNESIUM HYDROXIDE 400MG/5ML 30ML UDC NG PRN (18:30)
[2017-08-08] MEDS: HYDROCODONE/APAP 7.5/325MG 1 TAB TABLET NG PRN (19:06)
[2017-08-08] MEDS: TRAZODONE HCL 50MG TABLET NG SCH (20:24)
[2017-08-08] MEDS: DILTIAZEM HCL 90MG TABLET NG SCH (21:17)
[2017-08-08] MEDS: PROPOFOL 10MG/ML 100ML 100 ML IV PRN (21:17)
[2017-08-09] VITALS (53 sets, daily range): BP systolic 92–159; BP diastolic 53–95
[2017-08-09] MEDS: IPRATROPIUM BROMIDE (0.02%) 0.5MG/2.5ML NEB HHN SCH ×6 (00:04→20:14)
[2017-08-09] MEDS ORDERED: HYDROCODONE/APAP 7.5/325MG 1 TAB TABLET NG PRN (00:19)
[2017-08-09] MEDS: CEFAZOLIN 1000MG PREMIX 50 ML IV SCH ×3 (01:03→18:33)
[2017-08-09] MEDS ORDERED: LORAZEPAM 0.5MG TABLET NG PRN (01:45)
[2017-08-09] MEDS: PROPOFOL 10MG/ML 100ML 100 ML IV PRN (02:54)
[2017-08-09] MEDS: HYDROCODONE/APAP 7.5/325MG 1 TAB TABLET NG PRN ×3 (04:09→19:01)
[2017-08-09] MEDS: DILTIAZEM HCL 90MG TABLET NG SCH ×3 (05:17→22:00)
[2017-08-09] MEDS: METHYLPREDNISOLONE SOD SUCC 125 MG/2 ML VIAL IV SCH ×4 (05:17→23:45)
[2017-08-09] MEDS: BLOOD SUGAR DIAGNOSTIC STRIP TEST SCH ×4 (06:13→21:09)
[2017-08-09] MEDS: INSULIN LISPRO 100 UNITS/ML SUBCUT SCH ×4 (06:14→21:00)
[2017-08-09 07:13] LABS: BG BASE EXCESS 1.3 mmol/L (-2.0-2.0); BG CARBOXYHEMOGLOBIN 0.3 % (0.5-1.5); BG DEOXYHEMOGLOBIN 6.9 % (0.0-5.0); BG HCO3 ACT 24.8 mmol/L (22.0-26.0); BG METHEMOGLOBIN 0.2 % (0.0-1.5); BG OXYGEN SATURATION 93.1 % (92.0-98.5); BG OXYHEMOGLOBIN 92.6 % (94.0-97.0); BG PH 7.468 (7.350-7.450); BG PO2 69.2 mmHg (75.0-100.0); BG SAMPLE SITE RIGHT RADIAL; BG TIDAL VOLUME(mL) 550 mL; BG TOTAL HEMOGLOBIN 10.6 g/dL (12.0-18.0); BG VENT MODE VENT - SIMV; BG VENT RATE 10 set
[2017-08-09] MEDS: BUDESONIDE 0.5MG/2ML NEB HHN SCH (07:34)
[2017-08-09] MEDS: DOCUSATE SODIUM SUGAR FREE 100MG/10ML UDC NG SCH (09:00)
[2017-08-09] MEDS: POTASSIUM CHLORIDE 20MEQ TABLET SR PO SCH (09:11)
[2017-08-09] MEDS: FOLIC ACID 1MG TABLET NG SCH (09:11)
[2017-08-09] MEDS: PANTOPRAZOLE SODIUM 40 MG/VIAL IV SCH (09:11)
[2017-08-09] MEDS: THIAMINE HCL 100MG TABLET NG SCH (09:11)
[2017-08-09] MEDS: NICOTINE 14MG PATCH TD SCH (09:12)
[2017-08-09] MEDS: ENOXAPARIN 100MG/ML SYR SUBCUT SCH ×2 (09:12→21:59)
[2017-08-09] MEDS: LETAIRIS NG SCH (09:13)
[2017-08-09] MEDS: MULTIVITAMINS,THER W-MINERALS TABLET NG SCH (09:30)
[2017-08-09] MEDS: MORPHINE SULFATE 4 MG/ML CPJ (NOT FOR IM USE) IV PRN ×3 (10:42→17:10)
[2017-08-09] MEDS ORDERED: RACEPINEPHRINE 2.25% 0.5ML NEB VIAL HHN NR (13:20)
[2017-08-09 13:21] LABS: BG BASE EXCESS 3.7 mmol/L (-2.0-2.0); BG CARBOXYHEMOGLOBIN 0.2 % (0.5-1.5); BG DEOXYHEMOGLOBIN 18.5 % (0.0-5.0); BG FRACTION INSPIRED OXYGEN 50; BG HCO3 ACT 28.4 mmol/L (22.0-26.0); BG METHEMOGLOBIN 0.2 % (0.0-1.5); BG OXYGEN SATURATION 81.4 % (92.0-98.5); BG OXYHEMOGLOBIN 81.1 % (94.0-97.0); BG PCO2 43.6 mmHg (35.0-45.0); BG PH 7.432 (7.350-7.450); BG PO2 48.5 mmHg (75.0-100.0); BG PRESSURE SUPPORT 8; BG SAMPLE SITE RIGHT RADIAL; BG TOTAL HEMOGLOBIN 11.2 g/dL (12.0-18.0); BG VENT MODE VENT - CPAP
[2017-08-09] MEDS: TRAZODONE HCL 50MG TABLET NG SCH (21:58)
[2017-08-09] MEDS: ACETAMINOPHEN 325MG TABLET PO PRN (23:55)
[2017-08-10] VITALS (53 sets, daily range): BP systolic 64–136; BP diastolic 24–90
[2017-08-10] MEDS: HYDROCODONE/APAP 7.5/325MG 1 TAB TABLET NG PRN ×4 (01:15→20:01)
[2017-08-10] MEDS: CEFAZOLIN 1000MG PREMIX 50 ML IV SCH ×3 (01:16→17:25)
[2017-08-10] MEDS: IPRATROPIUM BROMIDE (0.02%) 0.5MG/2.5ML NEB HHN SCH ×6 (01:23→20:46)
[2017-08-10 05:37] LABS: HEMATOCRIT. 34.5 % (36.0-48.0); HEMOGLOBIN. 10.8 g/dL (12.0-16.0); MEAN CORPUSCULAR HEMOGLOBIN 26.2 pg (28.0-32.0); MEAN CORPUSCULAR VOLUME 83.8 fL (81.0-99.0); MEAN PLATELET VOLUME 8.1 fl (7.4-10.4); PLATELET 348 x1000/uL (130-400); RED BLOOD CELL COUNT 4.11 mill/uL (4.2-5.4); RED CELL DISTRIBUTION WIDTH 19.4 % (11.6-14.6)
[2017-08-10] MEDS: DILTIAZEM HCL 90MG TABLET NG SCH ×3 (05:45→17:24)
[2017-08-10] MEDS: METHYLPREDNISOLONE SOD SUCC 125 MG/2 ML VIAL IV SCH ×2 (05:46→11:41)
[2017-08-10] MEDS: ACETAMINOPHEN 325MG TABLET PO PRN (05:46)
[2017-08-10 05:54] LABS: CHLORIDE 109 mEq/L (98-107)
[2017-08-10] MEDS: BLOOD SUGAR DIAGNOSTIC STRIP TEST SCH ×4 (06:30→21:00)
[2017-08-10] MEDS: INSULIN LISPRO 100 UNITS/ML SUBCUT SCH ×4 (07:39→22:38)
[2017-08-10] MEDS: DOCUSATE SODIUM SUGAR FREE 100MG/10ML UDC NG SCH (09:00)
[2017-08-10] MEDS: PANTOPRAZOLE SODIUM 40 MG/VIAL IV SCH (09:02)
[2017-08-10] MEDS: FOLIC ACID 1MG TABLET NG SCH (09:03)
[2017-08-10] MEDS: NICOTINE 14MG PATCH TD SCH (09:03)
[2017-08-10] MEDS: THIAMINE HCL 100MG TABLET NG SCH (09:03)
[2017-08-10] MEDS: MULTIVITAMINS,THER W-MINERALS TABLET NG SCH (09:03)
[2017-08-10] MEDS: LETAIRIS NG SCH (09:03)
[2017-08-10] MEDS: POTASSIUM CHLORIDE 20MEQ TABLET SR PO SCH (09:03)
[2017-08-10] MEDS: ENOXAPARIN 100MG/ML SYR SUBCUT SCH ×2 (09:04→21:21)
[2017-08-10 09:56] LABS: BG BASE EXCESS -1.2 mmol/L (-2.0-2.0); BG CARBOXYHEMOGLOBIN 0.6 % (0.5-1.5); BG DEOXYHEMOGLOBIN 7.3 % (0.0-5.0); BG FRACTION INSPIRED OXYGEN 28; BG HCO3 ACT 22.2 mmol/L (22.0-26.0); BG METHEMOGLOBIN 0.4 % (0.0-1.5); BG OXYGEN SATURATION 92.6 % (92.0-98.5); BG OXYHEMOGLOBIN 91.7 % (94.0-97.0); BG PCO2 32.8 mmHg (35.0-45.0); BG PH 7.448 (7.350-7.450); BG SAMPLE SITE RIGHT RADIAL; BG VENT MODE NASAL CANNULA
[2017-08-10 10:34] LABS: PLATELET ESTIMATE NORMAL
[2017-08-10] MEDS ORDERED: LIDOCAINE HCL/PF 1% 2ML VIAL ONE (12:02)
[2017-08-10] MEDS: DIGOXIN 125MCG TABLET PO SCH (17:24)
[2017-08-10] MEDS: TRAZODONE HCL 50MG TABLET NG SCH (21:21)
[2017-08-10] MEDS: METHYLPREDNISOLONE SOD SUCC 40 MG/ML VIAL IV SCH (21:22)
[2017-08-11] VITALS (14 sets, daily range): BP systolic 101–149; BP diastolic 43–111
[2017-08-11] MEDS: IPRATROPIUM BROMIDE (0.02%) 0.5MG/2.5ML NEB HHN SCH ×6 (00:20→20:42)
[2017-08-11] MEDS: DILTIAZEM HCL 90MG TABLET NG SCH ×5 (00:36→23:38)
[2017-08-11] MEDS: CEFAZOLIN 1000MG PREMIX 50 ML IV SCH ×3 (00:47→17:56)
[2017-08-11] MEDS: HYDROCODONE/APAP 7.5/325MG 1 TAB TABLET NG PRN ×4 (03:08→21:27)
[2017-08-11] MEDS: METHYLPREDNISOLONE SOD SUCC 40 MG/ML VIAL IV SCH ×2 (05:53→12:58)
[2017-08-11 07:18] LABS: BASOPHILS % 0.1 % (0.0-2.0); HEMATOCRIT. 33.8 % (36.0-48.0); LYMPHOCYTES % 9.7 % (20.0-50.0); MEAN CORPUSCULAR HEMOGLOBIN 27.1 pg (28.0-32.0); MEAN CORPUSCULAR VOLUME 83.1 fL (81.0-99.0); MEAN PLATELET VOLUME 8.3 fl (7.4-10.4); MONOCYTES % 4.4 % (2.0-8.0); NEUTROPHILS % 85.8 % (40.0-76.0); PLATELET 345 x1000/uL (130-400); RED BLOOD CELL COUNT 4.06 mill/uL (4.2-5.4)
[2017-08-11] MEDS: BLOOD SUGAR DIAGNOSTIC STRIP TEST SCH ×4 (07:30→21:21)
[2017-08-11 07:46] LABS: CHLORIDE 105 mEq/L (98-107)
[2017-08-11] MEDS: DOCUSATE SODIUM SUGAR FREE 100MG/10ML UDC NG SCH (08:59)
[2017-08-11] MEDS: FOLIC ACID 1MG TABLET NG SCH (08:59)
[2017-08-11] MEDS: THIAMINE HCL 100MG TABLET NG SCH (08:59)
[2017-08-11] MEDS: POTASSIUM CHLORIDE 20MEQ TABLET SR PO SCH (08:59)
[2017-08-11] MEDS: MULTIVITAMINS,THER W-MINERALS TABLET NG SCH (08:59)
[2017-08-11] MEDS: PANTOPRAZOLE SODIUM 40 MG/VIAL IV SCH (08:59)
[2017-08-11] MEDS: ENOXAPARIN 100MG/ML SYR SUBCUT SCH (08:59)
[2017-08-11] MEDS: LETAIRIS NG SCH (08:59)
[2017-08-11] MEDS: INSULIN LISPRO 100 UNITS/ML SUBCUT SCH ×4 (09:01→21:21)
[2017-08-11] MEDS: NICOTINE 14MG PATCH TD SCH (10:15)
[2017-08-11] MEDS ORDERED: THROAT LOZENGES-BENZOCAINE/MENTH/CETYLPYRD CL LOZENGES MM PRN (13:45)
[2017-08-11] MEDS: THROAT LOZENGES-BENZOCAINE/MENTH/CETYLPYRD CL LOZENGES MM PRN (14:20)
[2017-08-11] MEDS: PREDNISONE 20MG TABLET PO SCH (17:55)
[2017-08-11] MEDS: ADCIRCA 20 MG PO SCH (17:55)
[2017-08-11] MEDS: APIXABAN 5 MG TABLET PO SCH (17:55)
[2017-08-11] MEDS: DIGOXIN 125MCG TABLET PO SCH (17:55)
[2017-08-11] MEDS: TRAZODONE HCL 50MG TABLET NG SCH (21:20)
[2017-08-12] VITALS (19 sets, daily range): BP systolic 84–129; BP diastolic 24–84
[2017-08-12] MEDS: IPRATROPIUM BROMIDE (0.02%) 0.5MG/2.5ML NEB HHN SCH ×6 (00:25→20:21)
[2017-08-12] MEDS: HYDROCODONE/APAP 7.5/325MG 1 TAB TABLET NG PRN (03:24)
[2017-08-12 06:42] LABS: HEMATOCRIT. 33.5 % (36.0-48.0); HEMOGLOBIN. 10.9 g/dL (12.0-16.0); MEAN CORPUSCULAR HEMOGLOBIN 26.9 pg (28.0-32.0); PLATELET 335 x1000/uL (130-400); RED BLOOD CELL COUNT 4.03 mill/uL (4.2-5.4)
[2017-08-12] MEDS: DILTIAZEM HCL 90MG TABLET NG SCH ×3 (06:52→17:49)
[2017-08-12] MEDS: BLOOD SUGAR DIAGNOSTIC STRIP TEST SCH ×4 (07:30→20:39)
[2017-08-12] MEDS: INSULIN LISPRO 100 UNITS/ML SUBCUT SCH ×4 (08:01→21:48)
[2017-08-12] MEDS: FOLIC ACID 1MG TABLET NG SCH (08:02)
[2017-08-12] MEDS: DOCUSATE SODIUM SUGAR FREE 100MG/10ML UDC NG SCH (08:02)
[2017-08-12] MEDS: THIAMINE HCL 100MG TABLET NG SCH (08:02)
[2017-08-12] MEDS: APIXABAN 5 MG TABLET PO SCH ×2 (08:02→17:00)
[2017-08-12] MEDS: POTASSIUM CHLORIDE 20MEQ TABLET SR PO SCH (08:02)
[2017-08-12] MEDS: MULTIVITAMINS,THER W-MINERALS TABLET NG SCH (08:02)
[2017-08-12] MEDS: PREDNISONE 20MG TABLET PO SCH ×2 (08:03→17:47)
[2017-08-12] MEDS: PANTOPRAZOLE SODIUM 40 MG/VIAL IV SCH (08:03)
[2017-08-12] MEDS: LETAIRIS NG SCH (08:08)
[2017-08-12] MEDS: ADCIRCA 20 MG PO SCH (08:10)
[2017-08-12] MEDS: NICOTINE 14MG PATCH TD SCH (08:11)
[2017-08-12] MEDS: THROAT LOZENGES-BENZOCAINE/MENTH/CETYLPYRD CL LOZENGES MM PRN (08:56)
[2017-08-12 09:23] LABS: CHLORIDE 102 mEq/L (98-107)
[2017-08-12 09:48] LABS: PLATELET ESTIMATE NORMAL
[2017-08-12] MEDS: HYDROCODONE/APAP 7.5/325MG 1 TAB TABLET PO PRN ×3 (10:06→22:11)
[2017-08-12] MEDS ORDERED: FUROSEMIDE 20MG/2ML VIAL IVP NR (11:15)
[2017-08-12] MEDS: LEVOFLOXACIN 750MG PREMIX 150 ML IV SCH (15:53)
[2017-08-12] MEDS: DIGOXIN 125MCG TABLET PO SCH (17:49)
[2017-08-12] MEDS: TRAZODONE HCL 50MG TABLET NG SCH (20:40)
[2017-08-13] VITALS (18 sets, daily range): BP systolic 93–130; BP diastolic 41–86
[2017-08-13] MEDS: IPRATROPIUM BROMIDE (0.02%) 0.5MG/2.5ML NEB HHN SCH ×5 (00:39→20:05)
[2017-08-13] MEDS: HYDROCODONE/APAP 7.5/325MG 1 TAB TABLET PO PRN ×4 (04:25→22:35)
[2017-08-13] MEDS: DILTIAZEM HCL 90MG TABLET NG SCH ×4 (05:31→17:22)
[2017-08-13 06:56] LABS: HEMATOCRIT. 34.2 % (36.0-48.0); HEMOGLOBIN. 10.9 g/dL (12.0-16.0); MEAN CORPUSCULAR HEMOGLOBIN 26.7 pg (28.0-32.0); MEAN CORPUSCULAR VOLUME 83.4 fL (81.0-99.0); MEAN PLATELET VOLUME 8.4 fl (7.4-10.4); PLATELET 304 x1000/uL (130-400); RED CELL DISTRIBUTION WIDTH 19.1 % (11.6-14.6)
[2017-08-13 07:19] LABS: CHLORIDE 102 mEq/L (98-107)
[2017-08-13] MEDS: BLOOD SUGAR DIAGNOSTIC STRIP TEST SCH ×4 (07:30→20:54)
[2017-08-13 07:39] LABS: DIGOXIN 0.7 ng/mL (0.9-2.0)
[2017-08-13] MEDS: DOCUSATE SODIUM SUGAR FREE 100MG/10ML UDC NG SCH (08:52)
[2017-08-13] MEDS: PANTOPRAZOLE SODIUM 40 MG/VIAL IV SCH (08:52)
[2017-08-13] MEDS: APIXABAN 5 MG TABLET PO SCH ×2 (08:52→17:16)
[2017-08-13] MEDS: FOLIC ACID 1MG TABLET NG SCH (08:53)
[2017-08-13] MEDS: THIAMINE HCL 100MG TABLET NG SCH (08:53)
[2017-08-13] MEDS: PREDNISONE 20MG TABLET PO SCH ×2 (08:53→17:17)
[2017-08-13] MEDS: MULTIVITAMINS,THER W-MINERALS TABLET NG SCH (08:53)
[2017-08-13] MEDS: NICOTINE 14MG PATCH TD SCH (08:55)
[2017-08-13] MEDS: LETAIRIS NG SCH (08:58)
[2017-08-13] MEDS: ADCIRCA 20 MG PO SCH (08:58)
[2017-08-13] MEDS: INSULIN LISPRO 100 UNITS/ML SUBCUT SCH ×4 (09:02→21:03)
[2017-08-13 10:03] LABS: NUCLEATED RED BLOOD CELLS 1 /100 WBC; PLATELET ESTIMATE NORMAL
[2017-08-13] MEDS: MORPHINE SULFATE 4 MG/ML CPJ (NOT FOR IM USE) IV PRN (12:32)
[2017-08-13] MEDS: FUROSEMIDE 20MG TABLET PO SCH ×2 (12:58→20:54)
[2017-08-13] MEDS: VERAPAMIL HCL 2.5 MG/1 ML 2ML VIAL IV PRN ×2 (14:59→19:04)
[2017-08-13] MEDS: LEVOFLOXACIN 750MG PREMIX 150 ML IV SCH (16:07)
[2017-08-13] MEDS: DIGOXIN 125MCG TABLET PO SCH (17:16)
[2017-08-13] MEDS: TRAZODONE HCL 50MG TABLET NG SCH (20:54)
[2017-08-14] VITALS (16 sets, daily range): BP systolic 72–130; BP diastolic 24–85
[2017-08-14] MEDS: IPRATROPIUM BROMIDE (0.02%) 0.5MG/2.5ML NEB HHN SCH ×4 (02:05→21:54)
[2017-08-14] MEDS: HYDROCODONE/APAP 7.5/325MG 1 TAB TABLET PO PRN ×3 (04:50→22:53)
[2017-08-14] MEDS: DILTIAZEM HCL 90MG TABLET NG SCH ×5 (05:17→18:42)
[2017-08-14] MEDS: BLOOD SUGAR DIAGNOSTIC STRIP TEST SCH ×4 (07:50→21:00)
[2017-08-14] MEDS: INSULIN LISPRO 100 UNITS/ML SUBCUT SCH ×4 (07:57→22:14)
[2017-08-14] MEDS: DOCUSATE SODIUM SUGAR FREE 100MG/10ML UDC NG SCH (09:00)
[2017-08-14 09:31] LABS: HEMATOCRIT. 33.9 % (36.0-48.0); HEMOGLOBIN. 10.9 g/dL (12.0-16.0); MEAN CORPUSCULAR HEMOGLOBIN 26.6 pg (28.0-32.0); MEAN CORPUSCULAR VOLUME 82.9 fL (81.0-99.0); MEAN PLATELET VOLUME 8.3 fl (7.4-10.4); PLATELET 299 x1000/uL (130-400); RED BLOOD CELL COUNT 4.09 mill/uL (4.2-5.4); RED CELL DISTRIBUTION WIDTH 19.3 % (11.6-14.6)
[2017-08-14] MEDS: FOLIC ACID 1MG TABLET NG SCH (09:45)
[2017-08-14] MEDS: MULTIVITAMINS,THER W-MINERALS TABLET NG SCH (09:45)
[2017-08-14] MEDS: PANTOPRAZOLE SODIUM 40 MG/VIAL IV SCH (09:45)
[2017-08-14] MEDS: APIXABAN 5 MG TABLET PO SCH ×2 (09:45→18:45)
[2017-08-14] MEDS: PREDNISONE 20MG TABLET PO SCH ×2 (09:45→18:42)
[2017-08-14] MEDS: FUROSEMIDE 20MG TABLET PO SCH ×2 (09:45→22:13)
[2017-08-14] MEDS: THIAMINE HCL 100MG TABLET NG SCH (09:45)
[2017-08-14 09:46] LABS: CHLORIDE 102 mEq/L (98-107)
[2017-08-14] MEDS: ADCIRCA 20 MG PO SCH (09:46)
[2017-08-14] MEDS: NICOTINE 14MG PATCH TD SCH (09:46)
[2017-08-14] MEDS: LETAIRIS NG SCH (09:46)
[2017-08-14] MEDS: MORPHINE SULFATE 4 MG/ML CPJ (NOT FOR IM USE) IV PRN (10:04)
[2017-08-14 10:55] LABS: PLATELET ESTIMATE NORMAL
[2017-08-14] MEDS: METOPROLOL TARTRATE 25MG TABLET PO SCH ×2 (11:02→21:00)
[2017-08-14] MEDS ORDERED: LORAZEPAM 2MG/ML CPJ IV SCH (15:30)
[2017-08-14] MEDS: LEVOFLOXACIN 750MG PREMIX 150 ML IV SCH (16:21)
[2017-08-14] MEDS: DIGOXIN 125MCG TABLET PO SCH (18:42)
[2017-08-14] MEDS: TRAZODONE HCL 50MG TABLET NG SCH (21:58)
[2017-08-15] VITALS (17 sets, daily range): BP systolic 98–130; BP diastolic 47–90
[2017-08-15] MEDS: IPRATROPIUM BROMIDE (0.02%) 0.5MG/2.5ML NEB HHN SCH ×4 (00:20→21:09)
[2017-08-15] MEDS: VERAPAMIL HCL 2.5 MG/1 ML 2ML VIAL IV PRN (02:04)
[2017-08-15] MEDS: HYDROCODONE/APAP 7.5/325MG 1 TAB TABLET PO PRN ×4 (04:16→22:07)
[2017-08-15] MEDS: DILTIAZEM HCL 90MG TABLET NG SCH ×3 (05:56→18:34)
[2017-08-15] MEDS: BLOOD SUGAR DIAGNOSTIC STRIP TEST SCH ×4 (07:45→21:00)
[2017-08-15] MEDS: INSULIN LISPRO 100 UNITS/ML SUBCUT SCH ×4 (07:55→22:09)
[2017-08-15] MEDS: DOCUSATE SODIUM SUGAR FREE 100MG/10ML UDC NG SCH (09:00)
[2017-08-15] MEDS: MULTIVITAMINS,THER W-MINERALS TABLET NG SCH (10:20)
[2017-08-15] MEDS: PANTOPRAZOLE SODIUM 40 MG/VIAL IV SCH (10:20)
[2017-08-15] MEDS: PREDNISONE 20MG TABLET PO SCH ×2 (10:21→18:37)
[2017-08-15] MEDS: APIXABAN 5 MG TABLET PO SCH ×2 (10:21→18:34)
[2017-08-15] MEDS: THIAMINE HCL 100MG TABLET NG SCH (10:21)
[2017-08-15] MEDS: FUROSEMIDE 20MG TABLET PO SCH ×2 (10:21→21:41)
[2017-08-15] MEDS: FOLIC ACID 1MG TABLET NG SCH (10:21)
[2017-08-15] MEDS: METOPROLOL TARTRATE 25MG TABLET PO SCH ×2 (10:21→21:41)
[2017-08-15] MEDS: LETAIRIS NG SCH (10:22)
[2017-08-15] MEDS: NICOTINE 14MG PATCH TD SCH (10:22)
[2017-08-15] MEDS: ADCIRCA 20 MG PO SCH (10:22)
[2017-08-15] MEDS ORDERED: LABETALOL 5MG/ML SYR 20 MG/4 ML SYRINGE IV SCH (12:00)
[2017-08-15] MEDS ORDERED: DIGOXIN 500MCG/2ML AMP IV SCH (12:00)
[2017-08-15] MEDS: ALPRAZOLAM 0.25 MG TABLET PO SCH ×3 (12:00→17:00)
[2017-08-15] MEDS ORDERED: DIGOXIN 500MCG/2ML AMP IV NR (16:00)
[2017-08-15] MEDS: LEVOFLOXACIN 750MG PREMIX 150 ML IV SCH (16:40)
[2017-08-15] MEDS: DIGOXIN 125MCG TABLET PO SCH (18:00)
[2017-08-15] MEDS: TRAZODONE HCL 50MG TABLET NG SCH (21:41)
[2017-08-16] VITALS (10 sets, daily range): BP systolic 105–128; BP diastolic 54–78
[2017-08-16] MEDS: IPRATROPIUM BROMIDE (0.02%) 0.5MG/2.5ML NEB HHN SCH ×3 (02:41→14:00)
[2017-08-16] MEDS: HYDROCODONE/APAP 7.5/325MG 1 TAB TABLET PO PRN ×3 (04:17→17:08)
[2017-08-16] MEDS: DILTIAZEM HCL 90MG TABLET NG SCH ×4 (06:19→17:12)
[2017-08-16] MEDS: BLOOD SUGAR DIAGNOSTIC STRIP TEST SCH ×3 (07:55→17:29)
[2017-08-16] MEDS: INSULIN LISPRO 100 UNITS/ML SUBCUT SCH ×3 (08:00→17:31)
[2017-08-16] MEDS: PREDNISONE 20MG TABLET PO SCH ×2 (08:58→17:25)
[2017-08-16] MEDS: DOCUSATE SODIUM SUGAR FREE 100MG/10ML UDC NG SCH (09:00)
[2017-08-16] MEDS: ADCIRCA 20 MG PO SCH (09:00)
[2017-08-16] MEDS: ALPRAZOLAM 0.25 MG TABLET PO SCH (09:00)
[2017-08-16] MEDS: THIAMINE HCL 100MG TABLET NG SCH (09:13)
[2017-08-16] MEDS: APIXABAN 5 MG TABLET PO SCH ×2 (09:14→17:09)
[2017-08-16] MEDS: FOLIC ACID 1MG TABLET NG SCH (09:16)
[2017-08-16] MEDS: FUROSEMIDE 20MG TABLET PO SCH (09:16)
[2017-08-16] MEDS: MULTIVITAMINS,THER W-MINERALS TABLET NG SCH (09:16)
[2017-08-16] MEDS: PANTOPRAZOLE SODIUM 40 MG/VIAL IV SCH (09:18)
[2017-08-16] MEDS: NICOTINE 14MG PATCH TD SCH (09:18)
[2017-08-16] MEDS: LETAIRIS NG SCH (09:18)
[2017-08-16] MEDS: METOPROLOL TARTRATE 25MG TABLET PO SCH (09:40)
[2017-08-16 13:04] LABS: HEMATOCRIT. 34.7 % (36.0-48.0); HEMOGLOBIN. 11.1 g/dL (12.0-16.0); MEAN CORPUSCULAR HEMOGLOBIN 26.8 pg (28.0-32.0); MEAN CORPUSCULAR VOLUME 83.8 fL (81.0-99.0); MEAN PLATELET VOLUME 7.7 fl (7.4-10.4); PLATELET 263 x1000/uL (130-400); RED BLOOD CELL COUNT 4.14 mill/uL (4.2-5.4); RED CELL DISTRIBUTION WIDTH 20.1 % (11.6-14.6)
[2017-08-16 13:45] LABS: CHLORIDE 100 mEq/L (98-107)
[2017-08-16] MEDS: LEVOFLOXACIN 750MG PREMIX 150 ML IV SCH (15:42)
[2017-08-16] MEDS ORDERED: DOCUSATE SODIUM 100MG CAPSULE PO SCH (17:00)
[2017-08-16] MEDS: DIGOXIN 125MCG TABLET PO SCH (17:09)
[2017-08-16 18:24] LABS: PLATELET ESTIMATE NORMAL
== END 2017-08-16 19:05 | DRG 207 ==
LOC: ER 15:37 → EDBEDREQ 19:50 → 7WST 20:22 → EDBEDREQTM 20:25 → EDBEDREQ 20:25 → EDBEDREQSVC 20:45 → ENRESERV 21:05 → MICUNO 07-27 20:40 → 5EST 08-10 18:30
PROVIDERS: ADMIT Hospitalist; ATTEND Hospitalist
PROC: 02HV33Z Insertion of Infusion Device into Superior Vena Cava, Percutaneous Approach (ICD-10-PCS; principal; 2017-07-29)
PROC: 5A1955Z Respiratory Ventilation, Greater than 96 Consecutive Hours (ICD-10-PCS; 2017-07-29)
PROC: B548ZZA Ultrasonography of Superior Vena Cava, Guidance (ICD-10-PCS; 2017-07-29)
PROC: 0BH17EZ Insertion of Endotracheal Airway into Trachea, Via Natural or Artificial Opening (ICD-10-PCS; 2017-07-29)
DX: J96.02 Acute respiratory failure with hypercapnia (principal); E43 Unspecified severe protein-calorie malnutrition; I50.33 Acute on chronic diastolic (congestive) heart failure; N17.9 Acute kidney failure, unspecified; J18.9 Pneumonia, unspecified organism; Z99.81 Dependence on supplemental oxygen; I27.20 Pulmonary hypertension, unspecified; E66.01 Morbid (severe) obesity due to excess calories; E44.0 Moderate protein-calorie malnutrition; I11.0 Hypertensive heart disease with heart failure; I48.2 Chronic atrial fibrillation; I48.92 Unspecified atrial flutter; N39.0 Urinary tract infection, site not specified; J44.1 Chronic obstructive pulmonary disease with (acute) exacerbation; J44.0 Chronic obstructive pulmonary disease with (acute) lower respiratory infection; Z68.41 Body mass index [BMI] 40.0-44.9, adult; I95.89 Other hypotension; B96.20 Unspecified Escherichia coli [E. coli] as the cause of diseases classified elsewhere; E11.9 Type 2 diabetes mellitus without complications; D50.9 Iron deficiency anemia, unspecified; F03.90 Unspecified dementia, unspecified severity, without behavioral disturbance, psychotic disturbance, mood disturbance, and anxiety; F10.10 Alcohol abuse, uncomplicated; F17.200 Nicotine dependence, unspecified, uncomplicated; F41.9 Anxiety disorder, unspecified; G40.909 Epilepsy, unspecified, not intractable, without status epilepticus; G47.00 Insomnia, unspecified; Z60.2 Problems related to living alone; G47.33 Obstructive sleep apnea (adult) (pediatric); G89.4 Chronic pain syndrome; F32.9 Major depressive disorder, single episode, unspecified; I25.10 Atherosclerotic heart disease of native coronary artery without angina pectoris; Z79.4 Long term (current) use of insulin; Z86.73 Personal history of transient ischemic attack (TIA), and cerebral infarction without residual deficits; Z90.710 Acquired absence of both cervix and uterus; Z93.0 Tracheostomy status; Z79.899 Other long term (current) drug therapy; Z71.6 Tobacco abuse counseling
CPT/HCPCS: 31500; 36415; 36569; 36600; 71045; 71250; 76937; 80048; 80053; 80162; 81003; 82375; 82550; 82553; 82805; 82962; 83605; 83735; 83880; 84478; 84484; 85014; 85018; 85025; 85027; 85610; 86850; 86900; 87040; 87077; 87086; 87186; 92610; 93005; 93306; 93970; 94002; 94003; 94640; 94660; 94664; 96361; 96374; 97110; 97163; 97164; 97167; 97530; 99285; A6261; C1725; C9113; J0330; J0610; J0690; J1160; J1650; J1815; J1940; J1956; J2060; J2270; J2370; J2704; J2920; J2930; J3490; J7030; J7040; J7042; J7050; J7060; J7512; J7620; J7626; A4315

== ENCOUNTER 2017-09-13 15:44 | Inpatient (IN) | payer MEDICARE, MEDICAID ==
[~2017-09-13] VITALS: Ht 162.6 cm; Wt 117.9 kg
[2017-09-13] VITALS (9 sets, daily range): BP systolic 98–151; BP diastolic 41–82
[~2017-09-13 15:44] MED LIST changes: +ALBU18HF2 IH; +AMBR10TA3 PO; +BENA1TAB18 PO; +BUDE6HFA INH; +HYDR-4005 PO; +NICO-645 TD; +TADA20TA31 PO
[2017-09-13] MEDS ORDERED: MAGNESIUM HYDROXIDE 400MG/5ML 30ML UDC PO PRN (17:15)
[2017-09-13] MEDS ORDERED: VERAPAMIL HCL 2.5 MG/1 ML 2ML VIAL IV PRN (17:15)
[2017-09-13] MEDS ORDERED: ACETAMINOPHEN 325MG TABLET PO PRN (17:30)
[2017-09-13] MEDS: MORPHINE SULFATE 4 MG/ML CPJ (NOT FOR IM USE) IV PRN (17:42)
[2017-09-13] MEDS ORDERED: DEXTROSE 50% WATER 50ML SYRINGE IV PRN (18:00)
[2017-09-13] MEDS: METOPROLOL TARTRATE 50MG TABLET PO SCH (18:00)
[2017-09-13] MEDS: NICOTINE 14MG PATCH TD SCH (18:00)
[2017-09-13] MEDS ORDERED: NON FORMULARY PATIENT HOME MED EA XX SCH (18:00)
[2017-09-13] MEDS: BLOOD SUGAR DIAGNOSTIC STRIP TEST SCH ×2 (18:08→21:00)
[2017-09-13] MEDS: INSULIN LISPRO 100 UNITS/ML SUBCUT SCH ×2 (18:22→21:13)
[2017-09-13] MEDS: PIPERACILLIN/TAZ 3.375G PREMIX 50 ML IV SCH (18:24)
[2017-09-13] MEDS: DIGOXIN 250MCG TABLET PO SCH (18:36)
[2017-09-13] MEDS ORDERED: MEDICATION NOT ON FORMULARY EA XX SCH ×2 (19:00)
[2017-09-13] MEDS: IPRATROPIUM/ALBUTEROL 0.5-3(2.5)MG/3ML NEB HHN PRN (19:00)
[2017-09-13] MEDS: HYDROCODONE/APAP 7.5/325MG 1 TAB TABLET PO PRN (20:48)
[2017-09-13] MEDS: QUETIAPINE FUMARATE 25MG TABLET PO SCH (21:09)
[2017-09-13] MEDS: TRAZODONE HCL 50MG TABLET PO SCH (21:09)
[2017-09-14] VITALS (23 sets, daily range): BP systolic 101–150; BP diastolic 51–96
[2017-09-14] MEDS: PIPERACILLIN/TAZ 3.375G PREMIX 50 ML IV SCH ×5 (00:04→23:50)
[2017-09-14] MEDS: MORPHINE SULFATE 4 MG/ML CPJ (NOT FOR IM USE) IV PRN ×3 (00:49→15:59)
[2017-09-14] MEDS ORDERED: QUET25TA PO (01:27)
[2017-09-14] MEDS ORDERED: NICO-645 TOP (01:40)
[2017-09-14] MEDS ORDERED: THIA100T13 PO (01:40)
[2017-09-14] MEDS ORDERED: APIX5TAB PO (01:40)
[2017-09-14] MEDS ORDERED: TADA20TA PO (01:40)
[2017-09-14] MEDS ORDERED: AMBR10TA3 PO (01:40)
[2017-09-14] MEDS ORDERED: DOCU100T PO (01:40)
[2017-09-14] MEDS ORDERED: TRAZ-129 PO (01:40)
[2017-09-14] MEDS ORDERED: P20 PO (01:40)
[2017-09-14] MEDS: HYDROCODONE/APAP 7.5/325MG 1 TAB TABLET PO PRN ×2 (05:22→20:11)
[2017-09-14] MEDS: METOPROLOL TARTRATE 50MG TABLET PO SCH ×2 (05:57→18:16)
[2017-09-14] MEDS: BLOOD SUGAR DIAGNOSTIC STRIP TEST SCH ×4 (07:50→21:02)
[2017-09-14] MEDS: INSULIN LISPRO 100 UNITS/ML SUBCUT SCH ×4 (08:20→21:00)
[2017-09-14] MEDS: IPRATROPIUM/ALBUTEROL 0.5-3(2.5)MG/3ML NEB HHN PRN ×3 (08:33→15:18)
[2017-09-14] MEDS ORDERED: APIXABAN 5 MG TABLET PO SCH (09:00)
[2017-09-14] MEDS: QUETIAPINE FUMARATE 25MG TABLET PO SCH ×2 (09:40→21:15)
[2017-09-14] MEDS: BISACODYL 5MG TABLET PO PRN (09:41)
[2017-09-14] MEDS: DOCUSATE SODIUM 100MG CAPSULE PO SCH (09:41)
[2017-09-14] MEDS: THIAMINE HCL 100MG TABLET PO SCH (09:41)
[2017-09-14] MEDS: DIGOXIN 250MCG TABLET PO SCH (09:41)
[2017-09-14] MEDS: NICOTINE 14MG PATCH TD SCH (09:44)
[2017-09-14] MEDS: MULTIVITAMINS,THER W-MINERALS TABLET PO SCH (09:44)
[2017-09-14] MEDS ORDERED: FUROSEMIDE 40MG/4ML VIAL IVP SCH (10:00)
[2017-09-14 10:11] LABS: HEMATOCRIT. 30.9 % (36.0-48.0); HEMOGLOBIN. 9.6 g/dL (12.0-16.0); MEAN CORPUSCULAR HEMOGLOBIN 28.2 pg (28.0-32.0); MEAN CORPUSCULAR VOLUME 90.2 fL (81.0-99.0); RED BLOOD CELL COUNT 3.42 mill/uL (4.2-5.4); RED CELL DISTRIBUTION WIDTH 20.7 % (11.6-14.6)
[2017-09-14 10:12] LABS: BG BASE EXCESS 6.1 mmol/L (-2.0-2.0); BG DEOXYHEMOGLOBIN 14.8 % (0.0-5.0); BG FRACTION INSPIRED OXYGEN 100; BG HCO3 ACT 31.4 mmol/L (22.0-26.0); BG OXYGEN SATURATION 85.2 % (92.0-98.5); BG OXYHEMOGLOBIN 85.2 % (94.0-97.0); BG PH 7.424 (7.350-7.450); BG SAMPLE SITE LEFT RADIAL; BG TOTAL HEMOGLOBIN 9.9 g/dL (12.0-18.0); BG VENT MODE VAPOTHERM
[2017-09-14 10:20] LABS: CHLORIDE 103 mEq/L (98-107)
[2017-09-14 10:36] LABS: DIGOXIN 1.3 ng/mL (0.9-2.0)
[2017-09-14 10:40] LABS: PLATELET ESTIMATE NORMAL
[2017-09-14 10:42] LABS: PLATELET 108 x1000/uL (130-400)
[2017-09-14] MEDS: TADALAFIL 20 MG PO SCH (11:45)
[2017-09-14] MEDS: AMBRISENTAN 10 MG PO SCH (11:46)
[2017-09-14] MEDS: DILTIAZEM HCL 90MG TABLET PO SCH ×3 (11:49→23:50)
[2017-09-14] MEDS ORDERED: LIDOCAINE HCL/PF 1% 2ML VIAL ONE (13:03)
[2017-09-14 13:04] LABS: BG BASE EXCESS 6.1 mmol/L (-2.0-2.0); BG CARBOXYHEMOGLOBIN 0.3 % (0.5-1.5); BG DEOXYHEMOGLOBIN 11.9 % (0.0-5.0); BG OXYGEN SATURATION 88.1 % (92.0-98.5); BG OXYHEMOGLOBIN 87.8 % (94.0-97.0); BG PCO2 46.3 mmHg (35.0-45.0); BG PH 7.444 (7.350-7.450); BG PO2 58.2 mmHg (75.0-100.0); BG SAMPLE SITE LEFT RADIAL; BG TOTAL HEMOGLOBIN 10.9 g/dL (12.0-18.0); BG VENT MODE VAPOTHERM
[2017-09-14] MEDS: IPRATROPIUM/ALBUTEROL 0.5-3(2.5)MG/3ML NEB HHN SCH (20:50)
[2017-09-14] MEDS: PREDNISONE 20MG TABLET PO SCH (21:14)
[2017-09-14] MEDS: APIXABAN 5 MG TABLET PO SCH (21:15)
[2017-09-14] MEDS: TRAZODONE HCL 50MG TABLET PO SCH (21:15)
[2017-09-15] VITALS (40 sets, daily range): BP systolic 92–128; BP diastolic 56–79
[2017-09-15] MEDS: IPRATROPIUM/ALBUTEROL 0.5-3(2.5)MG/3ML NEB HHN SCH ×6 (00:33→20:25)
[2017-09-15] MEDS: MORPHINE SULFATE 4 MG/ML CPJ (NOT FOR IM USE) IV PRN ×2 (03:30→19:01)
[2017-09-15 05:43] LABS: HEMATOCRIT. 28.4 % (36.0-48.0); HEMOGLOBIN. 9.2 g/dL (12.0-16.0); MEAN CORPUSCULAR HEMOGLOBIN 28.3 pg (28.0-32.0); MEAN PLATELET VOLUME 7.8 fl (7.4-10.4); PLATELET 188 x1000/uL (130-400); RED BLOOD CELL COUNT 3.26 mill/uL (4.2-5.4); RED CELL DISTRIBUTION WIDTH 20.6 % (11.6-14.6)
[2017-09-15 05:51] LABS: CHLORIDE 99 mEq/L (98-107)
[2017-09-15] MEDS: DILTIAZEM HCL 90MG TABLET PO SCH ×4 (05:56→18:00)
[2017-09-15] MEDS: METOPROLOL TARTRATE 50MG TABLET PO SCH ×3 (05:57→17:19)
[2017-09-15] MEDS: PIPERACILLIN/TAZ 3.375G PREMIX 50 ML IV SCH ×3 (06:22→17:03)
[2017-09-15] MEDS: HYDROCODONE/APAP 7.5/325MG 1 TAB TABLET PO PRN ×3 (06:29→23:08)
[2017-09-15 07:41] LABS: BG BASE EXCESS 6.6 mmol/L (-2.0-2.0); BG CARBOXYHEMOGLOBIN 0.3 % (0.5-1.5); BG DEOXYHEMOGLOBIN 6.4 % (0.0-5.0); BG FRACTION INSPIRED OXYGEN 100; BG HCO3 ACT 31.6 mmol/L (22.0-26.0); BG OXYGEN SATURATION 93.6 % (92.0-98.5); BG OXYHEMOGLOBIN 93.3 % (94.0-97.0); BG PCO2 47.9 mmHg (35.0-45.0); BG PH 7.437 (7.350-7.450); BG PO2 76.8 mmHg (75.0-100.0); BG SAMPLE SITE LEFT RADIAL; BG TOTAL HEMOGLOBIN 9.4 g/dL (12.0-18.0); BG VENT MODE VAPOTHERM
[2017-09-15] MEDS: BLOOD SUGAR DIAGNOSTIC STRIP TEST SCH ×4 (07:50→21:44)
[2017-09-15 08:15] LABS: PLATELET ESTIMATE NORMAL
[2017-09-15] MEDS: NICOTINE 14MG PATCH TD SCH (09:00)
[2017-09-15] MEDS: QUETIAPINE FUMARATE 25MG TABLET PO SCH ×2 (09:00→21:43)
[2017-09-15] MEDS: DOCUSATE SODIUM 100MG CAPSULE PO SCH (09:00)
[2017-09-15] MEDS: MULTIVITAMINS,THER W-MINERALS TABLET PO SCH (09:00)
[2017-09-15] MEDS: THIAMINE HCL 100MG TABLET PO SCH (09:00)
[2017-09-15] MEDS: APIXABAN 5 MG TABLET PO SCH ×2 (09:01→21:43)
[2017-09-15] MEDS: FUROSEMIDE 20MG TABLET PO SCH ×2 (09:01→17:18)
[2017-09-15] MEDS: TADALAFIL 20 MG PO SCH ×2 (09:03→10:42)
[2017-09-15] MEDS: DIGOXIN 250MCG TABLET PO SCH (09:06)
[2017-09-15] MEDS: INSULIN LISPRO 100 UNITS/ML SUBCUT SCH ×4 (09:09→21:43)
[2017-09-15] MEDS: PREDNISONE 20MG TABLET PO SCH (10:27)
[2017-09-15] MEDS: AMBRISENTAN 10 MG PO SCH (10:42)
[2017-09-15 13:03] LABS: BG BASE EXCESS 11.6 mmol/L (-2.0-2.0); BG CARBOXYHEMOGLOBIN 0.3 % (0.5-1.5); BG DEOXYHEMOGLOBIN 11.6 % (0.0-5.0); BG FRACTION INSPIRED OXYGEN 100; BG HCO3 ACT 36.3 mmol/L (22.0-26.0); BG METHEMOGLOBIN 0.3 % (0.0-1.5); BG OXYGEN SATURATION 88.3 % (92.0-98.5); BG OXYHEMOGLOBIN 87.8 % (94.0-97.0); BG PCO2 48.7 mmHg (35.0-45.0); BG SAMPLE SITE RIGHT RADIAL; BG TOTAL HEMOGLOBIN 9.5 g/dL (12.0-18.0); BG VENT MODE VAPOTHERM
[2017-09-15] MEDS ORDERED: DILTIAZEM HCL 90MG TABLET PO NR (20:00)
[2017-09-15] MEDS: TRAZODONE HCL 50MG TABLET PO SCH (21:43)
[2017-09-16] VITALS (28 sets, daily range): BP systolic 77–143; BP diastolic 41–95
[2017-09-16] MEDS: PIPERACILLIN/TAZ 3.375G PREMIX 50 ML IV SCH ×3 (00:18→12:58)
[2017-09-16] MEDS: DILTIAZEM HCL 90MG TABLET PO SCH ×5 (00:18→23:32)
[2017-09-16] MEDS: IPRATROPIUM/ALBUTEROL 0.5-3(2.5)MG/3ML NEB HHN SCH ×5 (00:35→15:57)
[2017-09-16] MEDS: MORPHINE SULFATE 4 MG/ML CPJ (NOT FOR IM USE) IV PRN ×2 (04:59→12:56)
[2017-09-16] MEDS: METOPROLOL TARTRATE 50MG TABLET PO SCH ×2 (05:44→19:35)
[2017-09-16] MEDS: FUROSEMIDE 20MG TABLET PO SCH ×2 (05:44→19:35)
[2017-09-16] MEDS: BLOOD SUGAR DIAGNOSTIC STRIP TEST SCH ×4 (08:16→20:55)
[2017-09-16] MEDS: HYDROCODONE/APAP 7.5/325MG 1 TAB TABLET PO PRN ×3 (08:38→23:33)
[2017-09-16] MEDS: INSULIN LISPRO 100 UNITS/ML SUBCUT SCH ×4 (08:41→20:55)
[2017-09-16] MEDS: TADALAFIL 20 MG PO SCH (09:00)
[2017-09-16] MEDS: AMBRISENTAN 10 MG PO SCH (09:00)
[2017-09-16] MEDS: QUETIAPINE FUMARATE 25MG TABLET PO SCH ×2 (10:28→20:37)
[2017-09-16] MEDS: DOCUSATE SODIUM 100MG CAPSULE PO SCH (10:28)
[2017-09-16] MEDS: PREDNISONE 20MG TABLET PO SCH (10:28)
[2017-09-16] MEDS: MULTIVITAMINS,THER W-MINERALS TABLET PO SCH (10:28)
[2017-09-16] MEDS: DIGOXIN 250MCG TABLET PO SCH (10:29)
[2017-09-16] MEDS: APIXABAN 5 MG TABLET PO SCH ×2 (10:29→20:38)
[2017-09-16] MEDS: THIAMINE HCL 100MG TABLET PO SCH (10:29)
[2017-09-16] MEDS: NICOTINE 14MG PATCH TD SCH (10:30)
[2017-09-16 11:31] LABS: HEMATOCRIT 26.4 % (36.0-48.0); HEMOGLOBIN 8.6 g/dL (12.0-16.0); MEAN CORPUSCULAR HEMOGLOBIN 28.2 pg (28.0-32.0); MEAN CORPUSCULAR VOLUME 86.4 fL (81.0-99.0); PLATELET 212 x1000/uL (130-400); RED BLOOD CELL COUNT 3.06 mill/uL (4.2-5.4); RED CELL DISTRIBUTION WIDTH 20.5 % (11.6-14.6)
[2017-09-16 12:55] LABS: CHLORIDE 99 mEq/L (98-107)
[2017-09-16] MEDS: TRAZODONE HCL 50MG TABLET PO SCH (20:38)
[2017-09-16] MEDS: IPRATROPIUM/ALBUTEROL 0.5-3(2.5)MG/3ML NEB HHN PRN (20:44)
[2017-09-17] VITALS (12 sets, daily range): BP systolic 123–159; BP diastolic 42–94
[2017-09-17] MEDS: IPRATROPIUM/ALBUTEROL 0.5-3(2.5)MG/3ML NEB HHN SCH ×5 (00:10→15:10)
[2017-09-17] MEDS: DILTIAZEM HCL 90MG TABLET PO SCH ×4 (05:46→23:55)
[2017-09-17] MEDS: PIPERACILLIN/TAZ 3.375G PREMIX 50 ML IV SCH ×5 (05:46→23:54)
[2017-09-17] MEDS: MORPHINE SULFATE 4 MG/ML CPJ (NOT FOR IM USE) IV PRN ×3 (05:47→20:27)
[2017-09-17] MEDS: METOPROLOL TARTRATE 50MG TABLET PO SCH ×2 (05:57→17:11)
[2017-09-17] MEDS: FUROSEMIDE 20MG TABLET PO SCH ×2 (05:57→17:11)
[2017-09-17 06:02] LABS: HEMATOCRIT. 25.5 % (36.0-48.0); HEMOGLOBIN. 8.2 g/dL (12.0-16.0); MEAN CORPUSCULAR HEMOGLOBIN 27.8 pg (28.0-32.0); MEAN CORPUSCULAR VOLUME 86.9 fL (81.0-99.0); MEAN PLATELET VOLUME 7.9 fl (7.4-10.4); PLATELET 214 x1000/uL (130-400); RED BLOOD CELL COUNT 2.94 mill/uL (4.2-5.4); RED CELL DISTRIBUTION WIDTH 20.5 % (11.6-14.6)
[2017-09-17 06:49] LABS: CHLORIDE 102 mEq/L (98-107)
[2017-09-17] MEDS: BLOOD SUGAR DIAGNOSTIC STRIP TEST SCH ×4 (07:57→20:29)
[2017-09-17] MEDS: INSULIN LISPRO 100 UNITS/ML SUBCUT SCH ×4 (07:58→20:44)
[2017-09-17] MEDS: DOCUSATE SODIUM 100MG CAPSULE PO SCH (08:42)
[2017-09-17] MEDS: THIAMINE HCL 100MG TABLET PO SCH (08:43)
[2017-09-17] MEDS: HYDROCODONE/APAP 7.5/325MG 1 TAB TABLET PO PRN ×2 (08:43→15:59)
[2017-09-17] MEDS: APIXABAN 5 MG TABLET PO SCH ×2 (08:43→20:27)
[2017-09-17] MEDS: DIGOXIN 250MCG TABLET PO SCH (08:43)
[2017-09-17] MEDS: MULTIVITAMINS,THER W-MINERALS TABLET PO SCH (08:43)
[2017-09-17] MEDS: QUETIAPINE FUMARATE 25MG TABLET PO SCH ×2 (08:43→20:27)
[2017-09-17] MEDS: PREDNISONE 20MG TABLET PO SCH (08:43)
[2017-09-17] MEDS: TADALAFIL 20 MG PO SCH (09:42)
[2017-09-17] MEDS: AMBRISENTAN 10 MG PO SCH (09:42)
[2017-09-17 11:03] LABS: BG BILEVEL POS AIRWAY PRESSURE 17/5; BG CARBOXYHEMOGLOBIN 0.1 % (0.5-1.5); BG FRACTION INSPIRED OXYGEN 100; BG HCO3 ACT 36.9 mmol/L (22.0-26.0); BG METHEMOGLOBIN 0.4 % (0.0-1.5); BG OXYHEMOGLOBIN 97.5 % (94.0-97.0); BG PCO2 57.5 mmHg (35.0-45.0); BG PH 7.425 (7.350-7.450); BG PO2 116.3 mmHg (75.0-100.0); BG SAMPLE SITE RIGHT RADIAL; BG TOTAL HEMOGLOBIN 8.9 g/dL (12.0-18.0); BG VENT MODE MASK - BIPAP; BG VENT RATE 16 set
[2017-09-17] MEDS: NICOTINE 14MG PATCH TD SCH (11:03)
[2017-09-17] MEDS ORDERED: LIDOCAINE HCL/PF 1% 2ML VIAL ONE (11:09)
[2017-09-17 17:18] LABS: PLATELET ESTIMATE NORMAL
[2017-09-17] MEDS: TRAZODONE HCL 50MG TABLET PO SCH (20:27)
[2017-09-17] MEDS: IPRATROPIUM/ALBUTEROL 0.5-3(2.5)MG/3ML NEB HHN PRN (20:29)
[2017-09-17] MEDS: FLUTICASONE/VILANTEROL 200-25 BLST.W.DEV ORI SCH (22:49)
[2017-09-17] MEDS: UMECLIDINIUM BROMIDE 1 INH BLST.W.DEV IH SCH (22:49)
[2017-09-18] VITALS (11 sets, daily range): BP systolic 123–160; BP diastolic 57–95
[2017-09-18] MEDS: HYDROCODONE/APAP 7.5/325MG 1 TAB TABLET PO PRN ×3 (00:04→18:09)
[2017-09-18] MEDS: MORPHINE SULFATE 4 MG/ML CPJ (NOT FOR IM USE) IV PRN ×3 (04:20→21:38)
[2017-09-18] MEDS: METOPROLOL TARTRATE 50MG TABLET PO SCH ×2 (05:32→17:57)
[2017-09-18] MEDS: DILTIAZEM HCL 90MG TABLET PO SCH ×4 (05:32→23:32)
[2017-09-18] MEDS: FUROSEMIDE 20MG TABLET PO SCH ×2 (05:32→17:57)
[2017-09-18] MEDS: PIPERACILLIN/TAZ 3.375G PREMIX 50 ML IV SCH ×4 (05:33→23:32)
[2017-09-18 07:07] LABS: HEMATOCRIT. 25.7 % (36.0-48.0); HEMOGLOBIN. 8.5 g/dL (12.0-16.0); MEAN CORPUSCULAR HEMOGLOBIN 28.7 pg (28.0-32.0); MEAN CORPUSCULAR VOLUME 86.7 fL (81.0-99.0); MEAN PLATELET VOLUME 7.7 fl (7.4-10.4); PLATELET 209 x1000/uL (130-400); RED BLOOD CELL COUNT 2.96 mill/uL (4.2-5.4); RED CELL DISTRIBUTION WIDTH 20.3 % (11.6-14.6)
[2017-09-18] MEDS: INSULIN LISPRO 100 UNITS/ML SUBCUT SCH ×4 (08:00→21:33)
[2017-09-18 08:05] LABS: CHLORIDE 99 mEq/L (98-107)
[2017-09-18] MEDS: BLOOD SUGAR DIAGNOSTIC STRIP TEST SCH ×4 (08:05→21:00)
[2017-09-18] MEDS: IPRATROPIUM/ALBUTEROL 0.5-3(2.5)MG/3ML NEB HHN PRN (08:23)
[2017-09-18] MEDS: THIAMINE HCL 100MG TABLET PO SCH (09:10)
[2017-09-18] MEDS: DIGOXIN 250MCG TABLET PO SCH (09:10)
[2017-09-18] MEDS: QUETIAPINE FUMARATE 25MG TABLET PO SCH ×2 (09:10→21:32)
[2017-09-18] MEDS: MULTIVITAMINS,THER W-MINERALS TABLET PO SCH (09:11)
[2017-09-18] MEDS: PREDNISONE 20MG TABLET PO SCH (09:11)
[2017-09-18] MEDS: APIXABAN 5 MG TABLET PO SCH ×2 (09:11→21:32)
[2017-09-18] MEDS: DOCUSATE SODIUM 100MG CAPSULE PO SCH (09:11)
[2017-09-18] MEDS: AMBRISENTAN 10 MG PO SCH (09:12)
[2017-09-18] MEDS: TADALAFIL 20 MG PO SCH (09:12)
[2017-09-18] MEDS: NICOTINE 14MG PATCH TD SCH (09:12)
[2017-09-18] MEDS: UMECLIDINIUM BROMIDE 1 INH BLST.W.DEV IH SCH (09:58)
[2017-09-18] MEDS: FLUTICASONE/VILANTEROL 200-25 BLST.W.DEV ORI SCH (09:58)
[2017-09-18] MEDS ORDERED: LIDOCAINE HCL/PF 1% 2ML VIAL ONE (11:04)
[2017-09-18 13:13] LABS: NUCLEATED RED BLOOD CELLS 1 /100 WBC; PLATELET ESTIMATE NORMAL
[2017-09-18] MEDS: IPRATROPIUM/ALBUTEROL 0.5-3(2.5)MG/3ML NEB HHN SCH ×4 (13:52→23:59)
[2017-09-18 14:22] LABS: BG BASE EXCESS 5.4 mmol/L (-2.0-2.0); BG CARBOXYHEMOGLOBIN 0.3 % (0.5-1.5); BG FRACTION INSPIRED OXYGEN 100; BG HCO3 ACT 29.5 mmol/L (22.0-26.0); BG OXYHEMOGLOBIN 86.7 % (94.0-97.0); BG PCO2 41.6 mmHg (35.0-45.0); BG PH 7.469 (7.350-7.450); BG PO2 52.9 mmHg (75.0-100.0); BG SAMPLE SITE RIGHT RADIAL; BG VENT MODE VAPOTHERM
[2017-09-18] MEDS: TRAZODONE HCL 50MG TABLET PO SCH (21:32)
[2017-09-19] VITALS (12 sets, daily range): BP systolic 102–131; BP diastolic 51–78
[2017-09-19] MEDS: HYDROCODONE/APAP 7.5/325MG 1 TAB TABLET PO PRN ×2 (02:43→11:44)
[2017-09-19] MEDS: IPRATROPIUM/ALBUTEROL 0.5-3(2.5)MG/3ML NEB HHN SCH ×5 (03:59→20:33)
[2017-09-19] MEDS: METOPROLOL TARTRATE 50MG TABLET PO SCH ×2 (06:02→17:25)
[2017-09-19] MEDS: DILTIAZEM HCL 90MG TABLET PO SCH ×3 (06:02→17:25)
[2017-09-19] MEDS: PIPERACILLIN/TAZ 3.375G PREMIX 50 ML IV SCH ×3 (06:02→17:32)
[2017-09-19] MEDS: FUROSEMIDE 20MG TABLET PO SCH ×2 (06:02→17:24)
[2017-09-19 06:28] LABS: HEMATOCRIT. 25.5 % (36.0-48.0); HEMOGLOBIN. 8.3 g/dL (12.0-16.0); MEAN CORPUSCULAR VOLUME 86.6 fL (81.0-99.0); MEAN PLATELET VOLUME 7.8 fl (7.4-10.4); PLATELET 228 x1000/uL (130-400); RED BLOOD CELL COUNT 2.95 mill/uL (4.2-5.4)
[2017-09-19 07:31] LABS: CHLORIDE 99 mEq/L (98-107)
[2017-09-19] MEDS: INSULIN LISPRO 100 UNITS/ML SUBCUT SCH ×4 (08:00→21:36)
[2017-09-19] MEDS: MORPHINE SULFATE 4 MG/ML CPJ (NOT FOR IM USE) IV PRN ×2 (08:00→20:06)
[2017-09-19] MEDS: BLOOD SUGAR DIAGNOSTIC STRIP TEST SCH ×4 (08:06→21:00)
[2017-09-19] MEDS: FLUTICASONE/VILANTEROL 200-25 BLST.W.DEV ORI SCH (10:19)
[2017-09-19] MEDS: UMECLIDINIUM BROMIDE 1 INH BLST.W.DEV IH SCH (10:19)
[2017-09-19] MEDS: AMBRISENTAN 10 MG PO SCH (10:20)
[2017-09-19] MEDS: NICOTINE 14MG PATCH TD SCH (10:20)
[2017-09-19] MEDS: THIAMINE HCL 100MG TABLET PO SCH (10:21)
[2017-09-19] MEDS: DIGOXIN 250MCG TABLET PO SCH (10:21)
[2017-09-19] MEDS: TADALAFIL 20 MG PO SCH (10:21)
[2017-09-19] MEDS: QUETIAPINE FUMARATE 25MG TABLET PO SCH ×2 (10:22→21:37)
[2017-09-19] MEDS: PREDNISONE 20MG TABLET PO SCH (10:22)
[2017-09-19] MEDS: MULTIVITAMINS,THER W-MINERALS TABLET PO SCH (10:22)
[2017-09-19] MEDS: APIXABAN 5 MG TABLET PO SCH ×2 (10:22→21:37)
[2017-09-19] MEDS: DOCUSATE SODIUM 100MG CAPSULE PO SCH (10:22)
[2017-09-19 16:13] LABS: PLATELET ESTIMATE NORMAL
[2017-09-19] MEDS: TRAZODONE HCL 50MG TABLET PO SCH (21:36)
[2017-09-20] VITALS (12 sets, daily range): BP systolic 100–129; BP diastolic 49–78
[2017-09-20] MEDS: PIPERACILLIN/TAZ 3.375G PREMIX 50 ML IV SCH ×4 (00:03→17:27)
[2017-09-20] MEDS: DILTIAZEM HCL 90MG TABLET PO SCH ×4 (00:04→17:29)
[2017-09-20] MEDS: IPRATROPIUM/ALBUTEROL 0.5-3(2.5)MG/3ML NEB HHN SCH ×6 (00:10→20:58)
[2017-09-20] MEDS: FUROSEMIDE 20MG TABLET PO SCH ×2 (05:16→17:28)
[2017-09-20] MEDS: HYDROCODONE/APAP 7.5/325MG 1 TAB TABLET PO PRN ×3 (05:16→17:49)
[2017-09-20] MEDS: METOPROLOL TARTRATE 50MG TABLET PO SCH ×2 (05:17→17:28)
[2017-09-20 07:08] LABS: HEMATOCRIT. 26.1 % (36.0-48.0); HEMOGLOBIN. 8.2 g/dL (12.0-16.0); MEAN CORPUSCULAR HEMOGLOBIN 27.5 pg (28.0-32.0); MEAN CORPUSCULAR VOLUME 87.1 fL (81.0-99.0); MEAN PLATELET VOLUME 7.7 fl (7.4-10.4); PLATELET 261 x1000/uL (130-400); RED BLOOD CELL COUNT 2.99 mill/uL (4.2-5.4); RED CELL DISTRIBUTION WIDTH 20.8 % (11.6-14.6)
[2017-09-20] MEDS: BLOOD SUGAR DIAGNOSTIC STRIP TEST SCH ×4 (07:48→20:54)
[2017-09-20] MEDS: INSULIN LISPRO 100 UNITS/ML SUBCUT SCH ×4 (07:55→21:10)
[2017-09-20 08:00] LABS: CHLORIDE 100 mEq/L (98-107)
[2017-09-20] MEDS: FLUTICASONE/VILANTEROL 200-25 BLST.W.DEV ORI SCH (08:54)
[2017-09-20] MEDS: UMECLIDINIUM BROMIDE 1 INH BLST.W.DEV IH SCH (08:54)
[2017-09-20] MEDS: AMBRISENTAN 10 MG PO SCH (08:56)
[2017-09-20] MEDS: QUETIAPINE FUMARATE 25MG TABLET PO SCH ×2 (08:57→20:52)
[2017-09-20] MEDS: APIXABAN 5 MG TABLET PO SCH ×2 (08:57→20:52)
[2017-09-20] MEDS: NICOTINE 14MG PATCH TD SCH (08:57)
[2017-09-20] MEDS: DOCUSATE SODIUM 100MG CAPSULE PO SCH ×2 (08:57→09:00)
[2017-09-20] MEDS: PREDNISONE 20MG TABLET PO SCH (08:57)
[2017-09-20] MEDS: MULTIVITAMINS,THER W-MINERALS TABLET PO SCH (08:57)
[2017-09-20] MEDS: DIGOXIN 250MCG TABLET PO SCH (08:57)
[2017-09-20] MEDS: TADALAFIL 20 MG PO SCH (08:58)
[2017-09-20] MEDS: THIAMINE HCL 100MG TABLET PO SCH (09:00)
[2017-09-20] MEDS ORDERED: POTASSIUM CHLORIDE 20MEQ TABLET SR PO NR (13:15)
[2017-09-20] MEDS: MORPHINE SULFATE 4 MG/ML CPJ (NOT FOR IM USE) IV PRN ×2 (13:53→22:59)
[2017-09-20 14:29] LABS: PLATELET ESTIMATE NORMAL
[2017-09-20] MEDS: TRAZODONE HCL 50MG TABLET PO SCH (20:52)
[2017-09-21] VITALS (10 sets, daily range): BP systolic 106–133; BP diastolic 48–77
[2017-09-21] MEDS: DILTIAZEM HCL 90MG TABLET PO SCH ×4 (00:40→17:53)
[2017-09-21] MEDS: IPRATROPIUM/ALBUTEROL 0.5-3(2.5)MG/3ML NEB HHN SCH ×7 (00:56→20:22)
[2017-09-21] MEDS: HYDROCODONE/APAP 7.5/325MG 1 TAB TABLET PO PRN ×3 (04:12→20:21)
[2017-09-21 06:34] LABS: HEMATOCRIT. 23.9 % (36.0-48.0); HEMOGLOBIN. 7.8 g/dL (12.0-16.0); MEAN CORPUSCULAR HEMOGLOBIN 28.5 pg (28.0-32.0); MEAN CORPUSCULAR VOLUME 87.1 fL (81.0-99.0); MEAN PLATELET VOLUME 7.7 fl (7.4-10.4); PLATELET 245 x1000/uL (130-400); RED BLOOD CELL COUNT 2.75 mill/uL (4.2-5.4); RED CELL DISTRIBUTION WIDTH 20.5 % (11.6-14.6)
[2017-09-21] MEDS: FUROSEMIDE 20MG TABLET PO SCH ×2 (06:36→17:56)
[2017-09-21] MEDS: METOPROLOL TARTRATE 50MG TABLET PO SCH ×2 (06:37→17:54)
[2017-09-21 06:42] LABS: CHLORIDE 100 mEq/L (98-107)
[2017-09-21] MEDS: BLOOD SUGAR DIAGNOSTIC STRIP TEST SCH ×4 (07:30→20:21)
[2017-09-21] MEDS: INSULIN LISPRO 100 UNITS/ML SUBCUT SCH ×4 (08:00→20:28)
[2017-09-21 08:56] LABS: BG BASE EXCESS 8.2 mmol/L (-2.0-2.0); BG CARBOXYHEMOGLOBIN 0.2 % (0.5-1.5); BG DEOXYHEMOGLOBIN 9.4 % (0.0-5.0); BG FRACTION INSPIRED OXYGEN 100; BG HCO3 ACT 32.8 mmol/L (22.0-26.0); BG METHEMOGLOBIN 0.1 % (0.0-1.5); BG OXYGEN SATURATION 90.6 % (92.0-98.5); BG OXYHEMOGLOBIN 90.3 % (94.0-97.0); BG PCO2 46.6 mmHg (35.0-45.0); BG PH 7.466 (7.350-7.450); BG PO2 60.6 mmHg (75.0-100.0); BG SAMPLE SITE LEFT RADIAL; BG TOTAL HEMOGLOBIN 8.8 g/dL (12.0-18.0); BG VENT MODE VAPOTHERM
[2017-09-21] MEDS: DOCUSATE SODIUM 100MG CAPSULE PO SCH (09:00)
[2017-09-21] MEDS ORDERED: LIDOCAINE HCL/PF 1% 2ML VIAL ONE (10:16)
[2017-09-21] MEDS: PREDNISONE 20MG TABLET PO SCH (10:17)
[2017-09-21] MEDS: MULTIVITAMINS,THER W-MINERALS TABLET PO SCH (10:18)
[2017-09-21] MEDS: QUETIAPINE FUMARATE 25MG TABLET PO SCH ×2 (10:18→20:19)
[2017-09-21] MEDS: NICOTINE 14MG PATCH TD SCH (10:18)
[2017-09-21] MEDS: THIAMINE HCL 100MG TABLET PO SCH (10:18)
[2017-09-21] MEDS: DIGOXIN 250MCG TABLET PO SCH (10:19)
[2017-09-21] MEDS: APIXABAN 5 MG TABLET PO SCH ×2 (10:19→20:18)
[2017-09-21] MEDS: TADALAFIL 20 MG PO SCH (10:26)
[2017-09-21] MEDS: AMBRISENTAN 10 MG PO SCH (10:27)
[2017-09-21] MEDS: FLUTICASONE/VILANTEROL 200-25 BLST.W.DEV ORI SCH (12:23)
[2017-09-21] MEDS: UMECLIDINIUM BROMIDE 1 INH BLST.W.DEV IH SCH (12:24)
[2017-09-21] MEDS: MORPHINE SULFATE 4 MG/ML CPJ (NOT FOR IM USE) IV PRN (13:57)
[2017-09-21] MEDS: TRAZODONE HCL 50MG TABLET PO SCH (20:19)
[2017-09-22] VITALS (12 sets, daily range): BP systolic 104–132; BP diastolic 52–80
[2017-09-22] MEDS: IPRATROPIUM/ALBUTEROL 0.5-3(2.5)MG/3ML NEB HHN SCH ×5 (00:42→15:34)
[2017-09-22 00:57] LABS: PLATELET ESTIMATE NORMAL
[2017-09-22] MEDS: DILTIAZEM HCL 90MG TABLET PO SCH ×4 (01:01→18:03)
[2017-09-22] MEDS: HYDROCODONE/APAP 7.5/325MG 1 TAB TABLET PO PRN ×3 (01:11→17:08)
[2017-09-22] MEDS: MORPHINE SULFATE 4 MG/ML CPJ (NOT FOR IM USE) IV PRN ×3 (02:46→20:56)
[2017-09-22] MEDS: METOPROLOL TARTRATE 50MG TABLET PO SCH ×2 (05:11→18:00)
[2017-09-22] MEDS: FUROSEMIDE 20MG TABLET PO SCH ×2 (05:12→18:03)
[2017-09-22 07:16] LABS: HEMATOCRIT. 24.9 % (36.0-48.0); HEMOGLOBIN. 8.1 g/dL (12.0-16.0); MEAN CORPUSCULAR HEMOGLOBIN 28.6 pg (28.0-32.0); MEAN CORPUSCULAR VOLUME 87.5 fL (81.0-99.0); MEAN PLATELET VOLUME 7.6 fl (7.4-10.4); PLATELET 246 x1000/uL (130-400); RED BLOOD CELL COUNT 2.84 mill/uL (4.2-5.4); RED CELL DISTRIBUTION WIDTH 20.5 % (11.6-14.6)
[2017-09-22] MEDS: BLOOD SUGAR DIAGNOSTIC STRIP TEST SCH ×4 (07:49→21:06)
[2017-09-22] MEDS: NICOTINE 14MG PATCH TD SCH (08:04)
[2017-09-22] MEDS: DOCUSATE SODIUM 100MG CAPSULE PO SCH (08:05)
[2017-09-22] MEDS: QUETIAPINE FUMARATE 25MG TABLET PO SCH ×2 (08:05→20:55)
[2017-09-22] MEDS: APIXABAN 5 MG TABLET PO SCH ×2 (08:05→20:54)
[2017-09-22] MEDS: THIAMINE HCL 100MG TABLET PO SCH (08:05)
[2017-09-22] MEDS: MULTIVITAMINS,THER W-MINERALS TABLET PO SCH (08:05)
[2017-09-22] MEDS: DIGOXIN 250MCG TABLET PO SCH (08:05)
[2017-09-22] MEDS: PREDNISONE 20MG TABLET PO SCH (08:05)
[2017-09-22] MEDS: AMBRISENTAN 10 MG PO SCH (08:06)
[2017-09-22 08:08] LABS: CHLORIDE 101 mEq/L (98-107)
[2017-09-22] MEDS: UMECLIDINIUM BROMIDE 1 INH BLST.W.DEV IH SCH (08:09)
[2017-09-22] MEDS: FLUTICASONE/VILANTEROL 200-25 BLST.W.DEV ORI SCH (08:10)
[2017-09-22] MEDS: TADALAFIL 20 MG PO SCH (08:11)
[2017-09-22] MEDS: INSULIN LISPRO 100 UNITS/ML SUBCUT SCH ×4 (08:32→21:09)
[2017-09-22 13:53] LABS: PLATELET ESTIMATE NORMAL
[2017-09-22] MEDS: IPRATROPIUM/ALBUTEROL 0.5-3(2.5)MG/3ML NEB HHN PRN (20:24)
[2017-09-22] MEDS: TRAZODONE HCL 50MG TABLET PO SCH (20:54)
[2017-09-23] VITALS (13 sets, daily range): BP systolic 88–159; BP diastolic 60–98
[2017-09-23] MEDS: IPRATROPIUM/ALBUTEROL 0.5-3(2.5)MG/3ML NEB HHN SCH ×6 (00:10→20:44)
[2017-09-23] MEDS: HYDROCODONE/APAP 7.5/325MG 1 TAB TABLET PO PRN ×4 (00:33→20:31)
[2017-09-23] MEDS: DILTIAZEM HCL 90MG TABLET PO SCH ×5 (00:34→23:54)
[2017-09-23] MEDS: MORPHINE SULFATE 4 MG/ML CPJ (NOT FOR IM USE) IV PRN ×3 (04:40→16:52)
[2017-09-23] MEDS: FUROSEMIDE 20MG TABLET PO SCH (06:19)
[2017-09-23] MEDS: METOPROLOL TARTRATE 50MG TABLET PO SCH ×2 (06:20→17:58)
[2017-09-23] MEDS: BLOOD SUGAR DIAGNOSTIC STRIP TEST SCH ×4 (06:24→21:34)
[2017-09-23] MEDS: INSULIN LISPRO 100 UNITS/ML SUBCUT SCH ×4 (06:24→21:37)
[2017-09-23 07:11] LABS: HEMATOCRIT. 24.7 % (36.0-48.0); HEMOGLOBIN. 7.8 g/dL (12.0-16.0); MEAN CORPUSCULAR HEMOGLOBIN 27.8 pg (28.0-32.0); MEAN CORPUSCULAR VOLUME 87.7 fL (81.0-99.0); MEAN PLATELET VOLUME 7.7 fl (7.4-10.4); PLATELET 259 x1000/uL (130-400); RED BLOOD CELL COUNT 2.82 mill/uL (4.2-5.4); RED CELL DISTRIBUTION WIDTH 20.4 % (11.6-14.6)
[2017-09-23 08:02] LABS: CHLORIDE 101 mEq/L (98-107)
[2017-09-23] MEDS: THIAMINE HCL 100MG TABLET PO SCH (08:07)
[2017-09-23] MEDS: APIXABAN 5 MG TABLET PO SCH ×2 (08:07→20:33)
[2017-09-23] MEDS: DIGOXIN 250MCG TABLET PO SCH (08:08)
[2017-09-23] MEDS: NICOTINE 14MG PATCH TD SCH (08:08)
[2017-09-23] MEDS: MULTIVITAMINS,THER W-MINERALS TABLET PO SCH (08:08)
[2017-09-23] MEDS: PREDNISONE 20MG TABLET PO SCH (08:08)
[2017-09-23] MEDS: QUETIAPINE FUMARATE 25MG TABLET PO SCH ×2 (08:08→20:31)
[2017-09-23] MEDS: DOCUSATE SODIUM 100MG CAPSULE PO SCH (08:08)
[2017-09-23] MEDS: FLUTICASONE/VILANTEROL 200-25 BLST.W.DEV ORI SCH (08:09)
[2017-09-23] MEDS: AMBRISENTAN 10 MG PO SCH (08:10)
[2017-09-23] MEDS: TADALAFIL 20 MG PO SCH (08:12)
[2017-09-23 08:34] LABS: DIGOXIN 1.1 ng/mL (0.9-2.0)
[2017-09-23 09:42] LABS: BG BASE EXCESS 7.1 mmol/L (-2.0-2.0); BG CARBOXYHEMOGLOBIN 0.2 % (0.5-1.5); BG DEOXYHEMOGLOBIN 9.1 % (0.0-5.0); BG FRACTION INSPIRED OXYGEN 100; BG HCO3 ACT 32.8 mmol/L (22.0-26.0); BG METHEMOGLOBIN 0.3 % (0.0-1.5); BG OXYGEN SATURATION 90.9 % (92.0-98.5); BG OXYHEMOGLOBIN 90.4 % (94.0-97.0); BG PCO2 53.1 mmHg (35.0-45.0); BG PH 7.408 (7.350-7.450); BG PO2 67.1 mmHg (75.0-100.0); BG SAMPLE SITE RIGHT RADIAL; BG TOTAL HEMOGLOBIN 8.7 g/dL (12.0-18.0); BG VENT MODE VAPOTHERM
[2017-09-23 10:05] LABS: PLATELET ESTIMATE NORMAL
[2017-09-23] MEDS: UMECLIDINIUM BROMIDE 1 INH BLST.W.DEV IH SCH (10:32)
[2017-09-23] MEDS ORDERED: LIDOCAINE HCL/PF 1% 2ML VIAL ONE (14:46)
[2017-09-23] MEDS ORDERED: HYDROCODONE/APAP 7.5/325MG 1 TAB TABLET PO PRN (18:00)
[2017-09-23 18:19] LABS: HEMOGLOBIN 8.2 g/dL (12.0-16.0)
[2017-09-23] MEDS: TRAZODONE HCL 50MG TABLET PO SCH (20:31)
[2017-09-24] VITALS (12 sets, daily range): BP systolic 99–150; BP diastolic 54–84
[2017-09-24] MEDS: IPRATROPIUM/ALBUTEROL 0.5-3(2.5)MG/3ML NEB HHN SCH ×7 (00:45→23:46)
[2017-09-24] MEDS: MORPHINE SULFATE 4 MG/ML CPJ (NOT FOR IM USE) IV PRN ×3 (03:54→17:51)
[2017-09-24] MEDS: DILTIAZEM HCL 90MG TABLET PO SCH ×3 (05:25→17:41)
[2017-09-24] MEDS: METOPROLOL TARTRATE 50MG TABLET PO SCH ×2 (05:25→17:42)
[2017-09-24 06:39] LABS: HEMATOCRIT. 24.2 % (36.0-48.0); HEMOGLOBIN. 7.8 g/dL (12.0-16.0); MEAN CORPUSCULAR VOLUME 87.3 fL (81.0-99.0); MEAN PLATELET VOLUME 7.1 fl (7.4-10.4); PLATELET 234 x1000/uL (130-400); RED BLOOD CELL COUNT 2.78 mill/uL (4.2-5.4); RED CELL DISTRIBUTION WIDTH 20.1 % (11.6-14.6)
[2017-09-24 07:23] LABS: CHLORIDE 104 mEq/L (98-107)
[2017-09-24] MEDS: BLOOD SUGAR DIAGNOSTIC STRIP TEST SCH ×4 (07:55→20:58)
[2017-09-24] MEDS: INSULIN LISPRO 100 UNITS/ML SUBCUT SCH ×4 (07:56→21:04)
[2017-09-24] MEDS: FUROSEMIDE 40MG/4ML VIAL IVP SCH (08:02)
[2017-09-24] MEDS: FLUTICASONE/VILANTEROL 200-25 BLST.W.DEV ORI SCH (08:02)
[2017-09-24] MEDS: NICOTINE 14MG PATCH TD SCH (08:02)
[2017-09-24] MEDS: UMECLIDINIUM BROMIDE 1 INH BLST.W.DEV IH SCH (08:02)
[2017-09-24] MEDS: HYDROCODONE/APAP 7.5/325MG 1 TAB TABLET PO PRN ×2 (08:03→19:03)
[2017-09-24] MEDS: QUETIAPINE FUMARATE 25MG TABLET PO SCH ×2 (08:03→20:54)
[2017-09-24] MEDS: APIXABAN 5 MG TABLET PO SCH ×2 (08:03→20:55)
[2017-09-24] MEDS: DIGOXIN 250MCG TABLET PO SCH (08:03)
[2017-09-24] MEDS: MULTIVITAMINS,THER W-MINERALS TABLET PO SCH (08:03)
[2017-09-24] MEDS: THIAMINE HCL 100MG TABLET PO SCH (08:03)
[2017-09-24] MEDS: DOCUSATE SODIUM 100MG CAPSULE PO SCH (08:03)
[2017-09-24] MEDS: AMBRISENTAN 10 MG PO SCH (08:04)
[2017-09-24] MEDS: PREDNISONE 20MG TABLET PO SCH (08:04)
[2017-09-24] MEDS: TADALAFIL 20 MG PO SCH (08:04)
[2017-09-24 10:10] LABS: NUCLEATED RED BLOOD CELLS 1 /100 WBC
[2017-09-24 10:11] LABS: PLATELET ESTIMATE NORMAL
[2017-09-24] MEDS: TRAZODONE HCL 50MG TABLET PO SCH (20:55)
[2017-09-25] VITALS (12 sets, daily range): BP systolic 99–135; BP diastolic 59–96
[2017-09-25] MEDS: DILTIAZEM HCL 90MG TABLET PO SCH ×5 (00:01→18:00)
[2017-09-25] MEDS: MORPHINE SULFATE 4 MG/ML CPJ (NOT FOR IM USE) IV PRN ×3 (01:38→16:05)
[2017-09-25] MEDS: IPRATROPIUM/ALBUTEROL 0.5-3(2.5)MG/3ML NEB HHN SCH ×5 (04:14→19:35)
[2017-09-25] MEDS: METOPROLOL TARTRATE 50MG TABLET PO SCH ×3 (06:00→18:00)
[2017-09-25] MEDS: HYDROCODONE/APAP 7.5/325MG 1 TAB TABLET PO PRN ×2 (06:19→19:58)
[2017-09-25] MEDS: BLOOD SUGAR DIAGNOSTIC STRIP TEST SCH ×4 (07:30→20:05)
[2017-09-25] MEDS: INSULIN LISPRO 100 UNITS/ML SUBCUT SCH ×4 (08:00→20:20)
[2017-09-25] MEDS: PREDNISONE 20MG TABLET PO SCH (09:27)
[2017-09-25] MEDS: DOCUSATE SODIUM 100MG CAPSULE PO SCH (09:28)
[2017-09-25] MEDS: THIAMINE HCL 100MG TABLET PO SCH (09:28)
[2017-09-25] MEDS: MULTIVITAMINS,THER W-MINERALS TABLET PO SCH (09:28)
[2017-09-25] MEDS: QUETIAPINE FUMARATE 25MG TABLET PO SCH ×2 (09:28→20:05)
[2017-09-25] MEDS: DIGOXIN 250MCG TABLET PO SCH (09:28)
[2017-09-25] MEDS: AMBRISENTAN 10 MG PO SCH (09:29)
[2017-09-25] MEDS: FUROSEMIDE 40MG/4ML VIAL IVP SCH ×2 (09:30→20:05)
[2017-09-25] MEDS: NICOTINE 14MG PATCH TD SCH (09:30)
[2017-09-25] MEDS: UMECLIDINIUM BROMIDE 1 INH BLST.W.DEV IH SCH (09:31)
[2017-09-25] MEDS: FLUTICASONE/VILANTEROL 200-25 BLST.W.DEV ORI SCH (09:31)
[2017-09-25] MEDS: TRAZODONE HCL 50MG TABLET PO SCH (20:05)
[2017-09-26] VITALS (12 sets, daily range): BP systolic 91–128; BP diastolic 53–73
[2017-09-26] MEDS: IPRATROPIUM/ALBUTEROL 0.5-3(2.5)MG/3ML NEB HHN SCH ×6 (00:21→19:34)
[2017-09-26] MEDS: DILTIAZEM HCL 90MG TABLET PO SCH ×4 (00:37→18:35)
[2017-09-26] MEDS: HYDROCODONE/APAP 7.5/325MG 1 TAB TABLET PO PRN ×3 (04:56→19:42)
[2017-09-26] MEDS: METOPROLOL TARTRATE 50MG TABLET PO SCH ×2 (05:23→18:35)
[2017-09-26] MEDS: BLOOD SUGAR DIAGNOSTIC STRIP TEST SCH ×4 (07:41→21:05)
[2017-09-26 07:45] LABS: HEMATOCRIT. 23.8 % (36.0-48.0); MEAN CORPUSCULAR HEMOGLOBIN 29.1 pg (28.0-32.0); MEAN CORPUSCULAR VOLUME 86.7 fL (81.0-99.0); MEAN PLATELET VOLUME 7.2 fl (7.4-10.4); PLATELET 194 x1000/uL (130-400); RED BLOOD CELL COUNT 2.74 mill/uL (4.2-5.4)
[2017-09-26] MEDS: INSULIN LISPRO 100 UNITS/ML SUBCUT SCH ×4 (07:47→21:12)
[2017-09-26 08:00] LABS: CHLORIDE 99 mEq/L (98-107)
[2017-09-26] MEDS: FUROSEMIDE 40MG/4ML VIAL IVP SCH ×2 (08:43→21:16)
[2017-09-26] MEDS: DOCUSATE SODIUM 100MG CAPSULE PO SCH (08:43)
[2017-09-26] MEDS: PREDNISONE 20MG TABLET PO SCH (08:43)
[2017-09-26] MEDS: DIGOXIN 250MCG TABLET PO SCH (08:44)
[2017-09-26] MEDS: SPIRONOLACTONE 25MG TABLET PO SCH (08:44)
[2017-09-26] MEDS: AMBRISENTAN 10 MG PO SCH (08:44)
[2017-09-26] MEDS: QUETIAPINE FUMARATE 25MG TABLET PO SCH ×2 (08:44→21:14)
[2017-09-26] MEDS: MULTIVITAMINS,THER W-MINERALS TABLET PO SCH (08:44)
[2017-09-26] MEDS: THIAMINE HCL 100MG TABLET PO SCH (08:44)
[2017-09-26] MEDS: UMECLIDINIUM BROMIDE 1 INH BLST.W.DEV IH SCH (08:45)
[2017-09-26] MEDS: FLUTICASONE/VILANTEROL 200-25 BLST.W.DEV ORI SCH (08:45)
[2017-09-26 10:39] LABS: PLATELET ESTIMATE NORMAL
[2017-09-26] MEDS: NICOTINE 14MG PATCH TD SCH (11:01)
[2017-09-26] MEDS ORDERED: MORPHINE SULFATE 4 MG/ML CPJ (NOT FOR IM USE) IV PRN (15:30)
[2017-09-26] MEDS: TRAZODONE HCL 50MG TABLET PO SCH (21:13)
[2017-09-26] MEDS: MORPHINE SULFATE 4 MG/ML CPJ (NOT FOR IM USE) IV PRN (23:58)
[2017-09-27] VITALS (11 sets, daily range): BP systolic 100–156; BP diastolic 56–96
[2017-09-27] MEDS: DILTIAZEM HCL 90MG TABLET PO SCH ×4 (00:06→18:12)
[2017-09-27] MEDS: IPRATROPIUM/ALBUTEROL 0.5-3(2.5)MG/3ML NEB HHN SCH ×5 (00:18→21:01)
[2017-09-27] MEDS: HYDROCODONE/APAP 7.5/325MG 1 TAB TABLET PO PRN ×3 (03:39→20:46)
[2017-09-27 05:36] LABS: HEMOGLOBIN. 7.4 g/dL (12.0-16.0); MEAN CORPUSCULAR VOLUME 86.8 fL (81.0-99.0); MEAN PLATELET VOLUME 7.5 fl (7.4-10.4); PLATELET 187 x1000/uL (130-400); RED BLOOD CELL COUNT 2.65 mill/uL (4.2-5.4)
[2017-09-27] MEDS: METOPROLOL TARTRATE 50MG TABLET PO SCH ×2 (05:41→18:12)
[2017-09-27 06:37] LABS: CHLORIDE 99 mEq/L (98-107)
[2017-09-27] MEDS: INSULIN LISPRO 100 UNITS/ML SUBCUT SCH ×4 (07:57→20:56)
[2017-09-27] MEDS: BLOOD SUGAR DIAGNOSTIC STRIP TEST SCH ×4 (07:57→20:46)
[2017-09-27] MEDS: FLUTICASONE/VILANTEROL 200-25 BLST.W.DEV ORI SCH (08:13)
[2017-09-27] MEDS: UMECLIDINIUM BROMIDE 1 INH BLST.W.DEV IH SCH (08:13)
[2017-09-27] MEDS: FUROSEMIDE 40MG/4ML VIAL IVP SCH ×2 (08:13→20:42)
[2017-09-27] MEDS: NICOTINE 14MG PATCH TD SCH (08:13)
[2017-09-27] MEDS: DOCUSATE SODIUM 100MG CAPSULE PO SCH (08:14)
[2017-09-27] MEDS: AMBRISENTAN 10 MG PO SCH (08:14)
[2017-09-27] MEDS: PREDNISONE 20MG TABLET PO SCH (08:14)
[2017-09-27] MEDS: DIGOXIN 250MCG TABLET PO SCH (08:14)
[2017-09-27] MEDS: MULTIVITAMINS,THER W-MINERALS TABLET PO SCH (08:14)
[2017-09-27] MEDS: QUETIAPINE FUMARATE 25MG TABLET PO SCH ×2 (08:14→20:43)
[2017-09-27] MEDS: THIAMINE HCL 100MG TABLET PO SCH (08:14)
[2017-09-27] MEDS: SPIRONOLACTONE 25MG TABLET PO SCH (08:14)
[2017-09-27] MEDS: MORPHINE SULFATE 4 MG/ML CPJ (NOT FOR IM USE) IV PRN ×2 (08:43→16:11)
[2017-09-27 17:36] LABS: PLATELET ESTIMATE NORMAL
[2017-09-27] MEDS: TRAZODONE HCL 50MG TABLET PO SCH (20:43)
[2017-09-28] VITALS (14 sets, daily range): BP systolic 105–167; BP diastolic 53–103
[2017-09-28] MEDS: IPRATROPIUM/ALBUTEROL 0.5-3(2.5)MG/3ML NEB HHN SCH ×5 (00:44→20:44)
[2017-09-28] MEDS: DILTIAZEM HCL 90MG TABLET PO SCH ×4 (01:18→17:15)
[2017-09-28] MEDS: MORPHINE SULFATE 4 MG/ML CPJ (NOT FOR IM USE) IV PRN ×3 (01:20→18:10)
[2017-09-28] MEDS: HYDROCODONE/APAP 7.5/325MG 1 TAB TABLET PO PRN ×3 (03:55→20:42)
[2017-09-28] MEDS: METOPROLOL TARTRATE 50MG TABLET PO SCH ×2 (06:16→17:15)
[2017-09-28 07:30] LABS: HEMATOCRIT. 22.3 % (36.0-48.0); HEMOGLOBIN. 7.3 g/dL (12.0-16.0); MEAN CORPUSCULAR HEMOGLOBIN 28.1 pg (28.0-32.0); MEAN CORPUSCULAR VOLUME 86.2 fL (81.0-99.0); MEAN PLATELET VOLUME 7.5 fl (7.4-10.4); PLATELET 165 x1000/uL (130-400); RED BLOOD CELL COUNT 2.59 mill/uL (4.2-5.4)
[2017-09-28 07:42] LABS: CHLORIDE 99 mEq/L (98-107)
[2017-09-28 07:45] LABS: BG BASE EXCESS 8.8 mmol/L (-2.0-2.0); BG CARBOXYHEMOGLOBIN 0.3 % (0.5-1.5); BG DEOXYHEMOGLOBIN 12.2 % (0.0-5.0); BG HCO3 ACT 34.1 mmol/L (22.0-26.0); BG METHEMOGLOBIN 0.3 % (0.0-1.5); BG OXYGEN SATURATION 87.7 % (92.0-98.5); BG OXYHEMOGLOBIN 87.2 % (94.0-97.0); BG PCO2 51.3 mmHg (35.0-45.0); BG PO2 57.5 mmHg (75.0-100.0); BG SAMPLE SITE RIGHT RADIAL; BG TOTAL HEMOGLOBIN 9.1 g/dL (12.0-18.0); BG VENT MODE VAPOTHERM
[2017-09-28] MEDS: INSULIN LISPRO 100 UNITS/ML SUBCUT SCH ×4 (08:00→20:46)
[2017-09-28 08:04] LABS: DIGOXIN 1.1 ng/mL (0.9-2.0)
[2017-09-28] MEDS: BLOOD SUGAR DIAGNOSTIC STRIP TEST SCH ×4 (08:14→20:42)
[2017-09-28] MEDS: FUROSEMIDE 40MG/4ML VIAL IVP SCH ×2 (08:17→20:31)
[2017-09-28] MEDS: FLUTICASONE/VILANTEROL 200-25 BLST.W.DEV ORI SCH (08:17)
[2017-09-28] MEDS: AMBRISENTAN 10 MG PO SCH (08:17)
[2017-09-28] MEDS: NICOTINE 14MG PATCH TD SCH (08:17)
[2017-09-28] MEDS: DOCUSATE SODIUM 100MG CAPSULE PO SCH (08:17)
[2017-09-28] MEDS: UMECLIDINIUM BROMIDE 1 INH BLST.W.DEV IH SCH (08:17)
[2017-09-28] MEDS: PREDNISONE 20MG TABLET PO SCH (08:18)
[2017-09-28] MEDS: DIGOXIN 250MCG TABLET PO SCH (08:18)
[2017-09-28] MEDS: THIAMINE HCL 100MG TABLET PO SCH (08:18)
[2017-09-28] MEDS: SPIRONOLACTONE 25MG TABLET PO SCH (08:18)
[2017-09-28] MEDS: MULTIVITAMINS,THER W-MINERALS TABLET PO SCH (08:18)
[2017-09-28] MEDS: QUETIAPINE FUMARATE 25MG TABLET PO SCH ×2 (08:18→20:31)
[2017-09-28] MEDS: LACTULOSE 20G/30ML UDC PO PRN (13:32)
[2017-09-28] MEDS ORDERED: LIDOCAINE HCL/PF 1% 2ML VIAL ONE (14:46)
[2017-09-28] MEDS: BISACODYL 5MG TABLET PO PRN (15:54)
[2017-09-28 17:14] LABS: PLATELET ESTIMATE NORMAL
[2017-09-28] MEDS ORDERED: NA PHOS,M-B/NA PHOS,DI-BA ENEMA 118ML PR NR (18:15)
[2017-09-28] MEDS: TRAZODONE HCL 50MG TABLET PO SCH (20:31)
[2017-09-29] VITALS (11 sets, daily range): BP systolic 88–150; BP diastolic 55–82
[2017-09-29] MEDS: DILTIAZEM HCL 90MG TABLET PO SCH ×4 (00:57→17:40)
[2017-09-29] MEDS: IPRATROPIUM/ALBUTEROL 0.5-3(2.5)MG/3ML NEB HHN SCH ×6 (01:10→21:58)
[2017-09-29] MEDS: MORPHINE SULFATE 4 MG/ML CPJ (NOT FOR IM USE) IV PRN ×3 (01:34→17:40)
[2017-09-29] MEDS: HYDROCODONE/APAP 7.5/325MG 1 TAB TABLET PO PRN ×3 (05:28→20:11)
[2017-09-29] MEDS: METOPROLOL TARTRATE 50MG TABLET PO SCH ×2 (05:31→17:40)
[2017-09-29] MEDS: BLOOD SUGAR DIAGNOSTIC STRIP TEST SCH ×4 (07:49→20:11)
[2017-09-29] MEDS: INSULIN LISPRO 100 UNITS/ML SUBCUT SCH ×4 (08:00→20:45)
[2017-09-29] MEDS: FUROSEMIDE 40MG/4ML VIAL IVP SCH ×2 (08:54→20:10)
[2017-09-29] MEDS: THIAMINE HCL 100MG TABLET PO SCH (08:54)
[2017-09-29] MEDS: PREDNISONE 20MG TABLET PO SCH (08:54)
[2017-09-29] MEDS: MULTIVITAMINS,THER W-MINERALS TABLET PO SCH (08:55)
[2017-09-29] MEDS: DIGOXIN 250MCG TABLET PO SCH (08:55)
[2017-09-29] MEDS: DOCUSATE SODIUM 100MG CAPSULE PO SCH (08:55)
[2017-09-29] MEDS: SPIRONOLACTONE 25MG TABLET PO SCH (08:57)
[2017-09-29] MEDS: QUETIAPINE FUMARATE 25MG TABLET PO SCH ×2 (08:57→20:10)
[2017-09-29] MEDS: UMECLIDINIUM BROMIDE 1 INH BLST.W.DEV IH SCH (08:58)
[2017-09-29] MEDS: FLUTICASONE/VILANTEROL 200-25 BLST.W.DEV ORI SCH (08:58)
[2017-09-29] MEDS: AMBRISENTAN 10 MG PO SCH (08:58)
[2017-09-29] MEDS: NICOTINE 14MG PATCH TD SCH (08:59)
[2017-09-29 11:53] LABS: TOTAL IRON BINDING CAPACITY 249 ug/dL (250-450)
[2017-09-29] MEDS: TRAZODONE HCL 50MG TABLET PO SCH (20:10)
[2017-09-30] VITALS (12 sets, daily range): BP systolic 92–134; BP diastolic 53–77
[2017-09-30] MEDS: DILTIAZEM HCL 90MG TABLET PO SCH ×4 (00:55→18:03)
[2017-09-30] MEDS: MORPHINE SULFATE 4 MG/ML CPJ (NOT FOR IM USE) IV PRN ×2 (00:57→20:58)
[2017-09-30] MEDS: IPRATROPIUM/ALBUTEROL 0.5-3(2.5)MG/3ML NEB HHN SCH ×6 (01:44→20:08)
[2017-09-30] MEDS: HYDROCODONE/APAP 7.5/325MG 1 TAB TABLET PO PRN ×3 (05:14→18:04)
[2017-09-30] MEDS: METOPROLOL TARTRATE 50MG TABLET PO SCH ×2 (05:36→18:02)
[2017-09-30 06:35] LABS: HEMATOCRIT. 27.9 % (36.0-48.0); MEAN CORPUSCULAR HEMOGLOBIN 27.8 pg (28.0-32.0); MEAN CORPUSCULAR VOLUME 86.5 fL (81.0-99.0); MEAN PLATELET VOLUME 7.7 fl (7.4-10.4); PLATELET 154 x1000/uL (130-400); RED BLOOD CELL COUNT 3.23 mill/uL (4.2-5.4); RED CELL DISTRIBUTION WIDTH 18.5 % (11.6-14.6)
[2017-09-30 07:17] LABS: CHLORIDE 96 mEq/L (98-107)
[2017-09-30] MEDS: BLOOD SUGAR DIAGNOSTIC STRIP TEST SCH ×4 (08:19→21:51)
[2017-09-30] MEDS: INSULIN LISPRO 100 UNITS/ML SUBCUT SCH ×4 (09:01→21:51)
[2017-09-30] MEDS: DIGOXIN 250MCG TABLET PO SCH (09:55)
[2017-09-30] MEDS: QUETIAPINE FUMARATE 25MG TABLET PO SCH ×2 (09:55→21:51)
[2017-09-30] MEDS: NICOTINE 14MG PATCH TD SCH (09:55)
[2017-09-30] MEDS: PREDNISONE 20MG TABLET PO SCH (09:55)
[2017-09-30] MEDS: DOCUSATE SODIUM 100MG CAPSULE PO SCH (09:56)
[2017-09-30] MEDS: THIAMINE HCL 100MG TABLET PO SCH (09:56)
[2017-09-30] MEDS: AMBRISENTAN 10 MG PO SCH (09:56)
[2017-09-30] MEDS: FUROSEMIDE 40MG/4ML VIAL IVP SCH ×2 (09:56→21:51)
[2017-09-30] MEDS: SPIRONOLACTONE 25MG TABLET PO SCH (09:56)
[2017-09-30] MEDS: MULTIVITAMINS,THER W-MINERALS TABLET PO SCH (09:56)
[2017-09-30] MEDS: FLUTICASONE/VILANTEROL 200-25 BLST.W.DEV ORI SCH ×2 (09:57→13:35)
[2017-09-30] MEDS: UMECLIDINIUM BROMIDE 1 INH BLST.W.DEV IH SCH ×2 (09:57→18:26)
[2017-09-30 11:59] LABS: ATYPICAL LYMPHOCYTES 2; NUCLEATED RED BLOOD CELLS 3 /100 WBC; PLATELET ESTIMATE NORMAL
[2017-09-30] MEDS: TRAZODONE HCL 50MG TABLET PO SCH (21:51)
[2017-10-01] VITALS (12 sets, daily range): BP systolic 98–119; BP diastolic 48–73
[2017-10-01] MEDS: DILTIAZEM HCL 90MG TABLET PO SCH ×5 (00:06→23:38)
[2017-10-01] MEDS: IPRATROPIUM/ALBUTEROL 0.5-3(2.5)MG/3ML NEB HHN SCH ×6 (00:23→20:03)
[2017-10-01] MEDS: HYDROCODONE/APAP 7.5/325MG 1 TAB TABLET PO PRN ×3 (02:30→20:07)
[2017-10-01] MEDS: METOPROLOL TARTRATE 50MG TABLET PO SCH ×2 (05:23→17:29)
[2017-10-01] MEDS: MORPHINE SULFATE 4 MG/ML CPJ (NOT FOR IM USE) IV PRN ×2 (06:38→17:15)
[2017-10-01 07:10] LABS: CHLORIDE 96 mEq/L (98-107)
[2017-10-01] MEDS: INSULIN LISPRO 100 UNITS/ML SUBCUT SCH ×4 (08:00→21:54)
[2017-10-01] MEDS: BLOOD SUGAR DIAGNOSTIC STRIP TEST SCH ×4 (08:04→21:00)
[2017-10-01] MEDS: DOCUSATE SODIUM 100MG CAPSULE PO SCH (08:21)
[2017-10-01] MEDS: SPIRONOLACTONE 25MG TABLET PO SCH (08:21)
[2017-10-01] MEDS: THIAMINE HCL 100MG TABLET PO SCH (08:21)
[2017-10-01] MEDS: DIGOXIN 250MCG TABLET PO SCH (08:22)
[2017-10-01] MEDS: PREDNISONE 20MG TABLET PO SCH (08:22)
[2017-10-01] MEDS: MULTIVITAMINS,THER W-MINERALS TABLET PO SCH (08:22)
[2017-10-01] MEDS: QUETIAPINE FUMARATE 25MG TABLET PO SCH ×2 (08:22→21:53)
[2017-10-01] MEDS: NICOTINE 14MG PATCH TD SCH (08:23)
[2017-10-01] MEDS: AMBRISENTAN 10 MG PO SCH (08:23)
[2017-10-01] MEDS: FUROSEMIDE 40MG/4ML VIAL IVP SCH ×2 (08:28→21:53)
[2017-10-01 08:34] LABS: BG BASE EXCESS 10.4 mmol/L (-2.0-2.0); BG CARBOXYHEMOGLOBIN 0.7 % (0.5-1.5); BG DEOXYHEMOGLOBIN 12.1 % (0.0-5.0); BG FRACTION INSPIRED OXYGEN 100; BG HCO3 ACT 36.2 mmol/L (22.0-26.0); BG METHEMOGLOBIN 0.1 % (0.0-1.5); BG OXYGEN SATURATION 87.8 % (92.0-98.5); BG OXYHEMOGLOBIN 87.1 % (94.0-97.0); BG PCO2 55.9 mmHg (35.0-45.0); BG PH 7.429 (7.350-7.450); BG PO2 55.4 mmHg (75.0-100.0); BG SAMPLE SITE LEFT RADIAL; BG TOTAL HEMOGLOBIN 9.2 g/dL (12.0-18.0); BG VENT MODE VAPOTHERM
[2017-10-01] MEDS: FLUTICASONE/VILANTEROL 200-25 BLST.W.DEV ORI SCH (08:46)
[2017-10-01] MEDS: UMECLIDINIUM BROMIDE 1 INH BLST.W.DEV IH SCH (08:46)
[2017-10-01] MEDS: TRAZODONE HCL 50MG TABLET PO SCH (21:53)
[2017-10-02] VITALS (13 sets, daily range): BP systolic 93–108; BP diastolic 50–71
[2017-10-02] MEDS: IPRATROPIUM/ALBUTEROL 0.5-3(2.5)MG/3ML NEB HHN SCH ×6 (00:10→20:10)
[2017-10-02] MEDS: MORPHINE SULFATE 4 MG/ML CPJ (NOT FOR IM USE) IV PRN ×3 (01:55→17:29)
[2017-10-02] MEDS: DILTIAZEM HCL 90MG TABLET PO SCH ×4 (05:32→23:55)
[2017-10-02] MEDS: METOPROLOL TARTRATE 50MG TABLET PO SCH ×2 (05:34→17:16)
[2017-10-02] MEDS: HYDROCODONE/APAP 7.5/325MG 1 TAB TABLET PO PRN ×3 (05:34→20:48)
[2017-10-02] MEDS: INSULIN LISPRO 100 UNITS/ML SUBCUT SCH ×4 (07:50→21:01)
[2017-10-02] MEDS: BLOOD SUGAR DIAGNOSTIC STRIP TEST SCH ×4 (07:50→20:48)
[2017-10-02] MEDS: FUROSEMIDE 40MG/4ML VIAL IVP SCH ×2 (09:18→20:47)
[2017-10-02] MEDS: AMBRISENTAN 10 MG PO SCH (09:18)
[2017-10-02] MEDS: DOCUSATE SODIUM 100MG CAPSULE PO SCH (09:18)
[2017-10-02] MEDS: QUETIAPINE FUMARATE 25MG TABLET PO SCH ×2 (09:18→20:48)
[2017-10-02] MEDS: SPIRONOLACTONE 25MG TABLET PO SCH (09:19)
[2017-10-02] MEDS: PREDNISONE 20MG TABLET PO SCH (09:19)
[2017-10-02] MEDS: MULTIVITAMINS,THER W-MINERALS TABLET PO SCH (09:19)
[2017-10-02] MEDS: THIAMINE HCL 100MG TABLET PO SCH (09:19)
[2017-10-02] MEDS: NICOTINE 14MG PATCH TD SCH (09:19)
[2017-10-02] MEDS: DIGOXIN 250MCG TABLET PO SCH (09:19)
[2017-10-02] MEDS: UMECLIDINIUM BROMIDE 1 INH BLST.W.DEV IH SCH (09:20)
[2017-10-02] MEDS: FLUTICASONE/VILANTEROL 200-25 BLST.W.DEV ORI SCH (09:20)
[2017-10-02] MEDS: TRAZODONE HCL 50MG TABLET PO SCH (20:48)
[2017-10-03] VITALS (12 sets, daily range): BP systolic 81–137; BP diastolic 46–73
[2017-10-03] MEDS: IPRATROPIUM/ALBUTEROL 0.5-3(2.5)MG/3ML NEB HHN SCH ×6 (00:38→20:09)
[2017-10-03] MEDS: HYDROCODONE/APAP 7.5/325MG 1 TAB TABLET PO PRN ×3 (03:57→20:13)
[2017-10-03] MEDS: DILTIAZEM HCL 90MG TABLET PO SCH ×3 (05:15→18:06)
[2017-10-03] MEDS: METOPROLOL TARTRATE 50MG TABLET PO SCH ×2 (05:19→18:33)
[2017-10-03 07:17] LABS: CHLORIDE 94 mEq/L (98-107)
[2017-10-03 07:27] LABS: HEMATOCRIT. 27.5 % (36.0-48.0); HEMOGLOBIN. 8.7 g/dL (12.0-16.0); MEAN CORPUSCULAR HEMOGLOBIN 27.3 pg (28.0-32.0); MEAN CORPUSCULAR VOLUME 86.1 fL (81.0-99.0); MEAN PLATELET VOLUME 7.9 fl (7.4-10.4); PLATELET 160 x1000/uL (130-400); RED CELL DISTRIBUTION WIDTH 18.8 % (11.6-14.6)
[2017-10-03] MEDS: BLOOD SUGAR DIAGNOSTIC STRIP TEST SCH ×4 (07:53→20:23)
[2017-10-03] MEDS: INSULIN LISPRO 100 UNITS/ML SUBCUT SCH ×4 (07:53→20:22)
[2017-10-03] MEDS: NICOTINE 14MG PATCH TD SCH (08:11)
[2017-10-03] MEDS: BISACODYL 5MG TABLET PO PRN (08:11)
[2017-10-03] MEDS: LACTULOSE 20G/30ML UDC PO PRN (08:11)
[2017-10-03] MEDS: AMBRISENTAN 10 MG PO SCH (08:11)
[2017-10-03] MEDS: PREDNISONE 20MG TABLET PO SCH (08:11)
[2017-10-03] MEDS: MULTIVITAMINS,THER W-MINERALS TABLET PO SCH (08:12)
[2017-10-03] MEDS: SPIRONOLACTONE 25MG TABLET PO SCH (08:12)
[2017-10-03] MEDS: DOCUSATE SODIUM 100MG CAPSULE PO SCH (08:12)
[2017-10-03] MEDS: FLUTICASONE/VILANTEROL 200-25 BLST.W.DEV ORI SCH (08:12)
[2017-10-03] MEDS: QUETIAPINE FUMARATE 25MG TABLET PO SCH ×2 (08:12→20:12)
[2017-10-03] MEDS: FUROSEMIDE 40MG/4ML VIAL IVP SCH ×2 (08:12→20:12)
[2017-10-03] MEDS: UMECLIDINIUM BROMIDE 1 INH BLST.W.DEV IH SCH (08:12)
[2017-10-03] MEDS: THIAMINE HCL 100MG TABLET PO SCH (08:12)
[2017-10-03] MEDS: DIGOXIN 250MCG TABLET PO SCH (08:12)
[2017-10-03] MEDS: MORPHINE SULFATE 4 MG/ML CPJ (NOT FOR IM USE) IV PRN ×2 (08:57→17:34)
[2017-10-03 09:52] LABS: BG BASE EXCESS 10.7 mmol/L (-2.0-2.0); BG FRACTION INSPIRED OXYGEN 100; BG HCO3 ACT 35.8 mmol/L (22.0-26.0); BG PCO2 48.5 mmHg (35.0-45.0); BG PH 7.486 (7.350-7.450); BG SAMPLE SITE RIGHT BRACHIAL; BG VENT MODE VAPOTHERM
[2017-10-03] MEDS ORDERED: LIDOCAINE HCL/PF 1% 2ML VIAL ONE (14:12)
[2017-10-03 14:46] LABS: NUCLEATED RED BLOOD CELLS 1 /100 WBC; PLATELET ESTIMATE NORMAL
[2017-10-03] MEDS ORDERED: NA PHOS,M-B/NA PHOS,DI-BA ENEMA 118ML PR PRN (15:15)
[2017-10-03] MEDS: TRAZODONE HCL 50MG TABLET PO SCH (20:12)
[2017-10-04] VITALS (15 sets, daily range): BP systolic 91–143; BP diastolic 51–79
[2017-10-04] MEDS: MORPHINE SULFATE 4 MG/ML CPJ (NOT FOR IM USE) IV PRN ×4 (00:07→21:30)
[2017-10-04] MEDS: DILTIAZEM HCL 90MG TABLET PO SCH ×4 (00:08→17:42)
[2017-10-04] MEDS: IPRATROPIUM/ALBUTEROL 0.5-3(2.5)MG/3ML NEB HHN SCH ×6 (00:50→20:24)
[2017-10-04] MEDS: HYDROCODONE/APAP 7.5/325MG 1 TAB TABLET PO PRN ×3 (02:31→17:42)
[2017-10-04] MEDS: METOPROLOL TARTRATE 50MG TABLET PO SCH ×2 (05:47→17:42)
[2017-10-04 07:21] LABS: CHLORIDE 95 mEq/L (98-107)
[2017-10-04] MEDS: BLOOD SUGAR DIAGNOSTIC STRIP TEST SCH ×4 (07:30→21:33)
[2017-10-04] MEDS: DIGOXIN 250MCG TABLET PO SCH (08:43)
[2017-10-04] MEDS: MULTIVITAMINS,THER W-MINERALS TABLET PO SCH (08:43)
[2017-10-04] MEDS: QUETIAPINE FUMARATE 25MG TABLET PO SCH ×2 (08:43→21:30)
[2017-10-04] MEDS: SPIRONOLACTONE 25MG TABLET PO SCH (08:43)
[2017-10-04] MEDS: THIAMINE HCL 100MG TABLET PO SCH (08:43)
[2017-10-04] MEDS: AMBRISENTAN 10 MG PO SCH (08:44)
[2017-10-04] MEDS: PREDNISONE 20MG TABLET PO SCH (08:44)
[2017-10-04] MEDS: DOCUSATE SODIUM 100MG CAPSULE PO SCH (08:44)
[2017-10-04] MEDS: FLUTICASONE/VILANTEROL 200-25 BLST.W.DEV ORI SCH (08:44)
[2017-10-04] MEDS: UMECLIDINIUM BROMIDE 1 INH BLST.W.DEV IH SCH (08:44)
[2017-10-04] MEDS: FUROSEMIDE 40MG/4ML VIAL IVP SCH ×2 (08:44→21:30)
[2017-10-04] MEDS: NICOTINE 14MG PATCH TD SCH (08:45)
[2017-10-04] MEDS: INSULIN LISPRO 100 UNITS/ML SUBCUT SCH ×4 (08:51→21:31)
[2017-10-04 09:55] LABS: BG BASE EXCESS 7.3 mmol/L (-2.0-2.0); BG CARBOXYHEMOGLOBIN 1.1 % (0.5-1.5); BG DEOXYHEMOGLOBIN 11.5 % (0.0-5.0); BG FRACTION INSPIRED OXYGEN 100; BG HCO3 ACT 32.5 mmol/L (22.0-26.0); BG METHEMOGLOBIN 0.3 % (0.0-1.5); BG OXYGEN SATURATION 88.3 % (92.0-98.5); BG OXYHEMOGLOBIN 87.1 % (94.0-97.0); BG PCO2 48.7 mmHg (35.0-45.0); BG PH 7.442 (7.350-7.450); BG PO2 56.6 mmHg (75.0-100.0); BG SAMPLE SITE RIGHT BRACHIAL; BG TOTAL HEMOGLOBIN 11.1 g/dL (12.0-18.0); BG VENT MODE VAPOTHERM
[2017-10-04] MEDS ORDERED: LIDOCAINE HCL/PF 1% 2ML VIAL ONE (13:42)
[2017-10-04 13:43] LABS: PROTHROMBIN TIME 10.4 sec (9.4-11.6)
[2017-10-04] MEDS: TRAZODONE HCL 50MG TABLET PO SCH (21:30)
[2017-10-04] MEDS: ENOXAPARIN 120MG/0.8ML SYR SUBCUT SCH (21:33)
[2017-10-05] VITALS (19 sets, daily range): BP systolic 77–123; BP diastolic 39–78
[2017-10-05] MEDS: DILTIAZEM HCL 90MG TABLET PO SCH ×4 (00:25→17:04)
[2017-10-05] MEDS: IPRATROPIUM/ALBUTEROL 0.5-3(2.5)MG/3ML NEB HHN SCH ×6 (00:25→21:36)
[2017-10-05] MEDS: HYDROCODONE/APAP 7.5/325MG 1 TAB TABLET PO PRN ×3 (01:25→17:11)
[2017-10-05] MEDS: MORPHINE SULFATE 4 MG/ML CPJ (NOT FOR IM USE) IV PRN ×3 (04:58→21:07)
[2017-10-05] MEDS: METOPROLOL TARTRATE 50MG TABLET PO SCH ×2 (05:01→17:11)
[2017-10-05 05:52] LABS: HEMATOCRIT. 26.2 % (36.0-48.0); HEMOGLOBIN. 8.4 g/dL (12.0-16.0); MEAN CORPUSCULAR HEMOGLOBIN 27.5 pg (28.0-32.0); MEAN CORPUSCULAR VOLUME 85.9 fL (81.0-99.0); MEAN PLATELET VOLUME 8.1 fl (7.4-10.4); PLATELET 159 x1000/uL (130-400); RED BLOOD CELL COUNT 3.05 mill/uL (4.2-5.4); RED CELL DISTRIBUTION WIDTH 18.9 % (11.6-14.6)
[2017-10-05 06:51] LABS: CHLORIDE 96 mEq/L (98-107)
[2017-10-05] MEDS: BLOOD SUGAR DIAGNOSTIC STRIP TEST SCH ×4 (07:30→21:06)
[2017-10-05] MEDS: INSULIN LISPRO 100 UNITS/ML SUBCUT SCH ×4 (08:00→21:18)
[2017-10-05] MEDS: AMBRISENTAN 10 MG PO SCH (09:21)
[2017-10-05] MEDS: FUROSEMIDE 40MG/4ML VIAL IVP SCH (09:22)
[2017-10-05] MEDS: ENOXAPARIN 120MG/0.8ML SYR SUBCUT SCH ×2 (09:22→21:00)
[2017-10-05] MEDS: QUETIAPINE FUMARATE 25MG TABLET PO SCH ×2 (09:22→21:05)
[2017-10-05] MEDS: PREDNISONE 20MG TABLET PO SCH (09:23)
[2017-10-05] MEDS: MULTIVITAMINS,THER W-MINERALS TABLET PO SCH (09:23)
[2017-10-05] MEDS: SPIRONOLACTONE 25MG TABLET PO SCH (09:23)
[2017-10-05] MEDS: THIAMINE HCL 100MG TABLET PO SCH (09:23)
[2017-10-05] MEDS: DIGOXIN 250MCG TABLET PO SCH (09:24)
[2017-10-05] MEDS: UMECLIDINIUM BROMIDE 1 INH BLST.W.DEV IH SCH (09:24)
[2017-10-05] MEDS: DOCUSATE SODIUM 100MG CAPSULE PO SCH (09:24)
[2017-10-05] MEDS: FLUTICASONE/VILANTEROL 200-25 BLST.W.DEV ORI SCH (09:24)
[2017-10-05] MEDS: NICOTINE 14MG PATCH TD SCH (09:26)
[2017-10-05 13:30] LABS: ATYPICAL LYMPHOCYTES 1; PLATELET ESTIMATE NORMAL
[2017-10-05] MEDS: TRAZODONE HCL 50MG TABLET PO SCH (21:05)
[2017-10-05] MEDS: LACTULOSE 20G/30ML UDC PO PRN (21:25)
[2017-10-06] VITALS (12 sets, daily range): BP systolic 92–125; BP diastolic 42–71
[2017-10-06] MEDS: IPRATROPIUM/ALBUTEROL 0.5-3(2.5)MG/3ML NEB HHN SCH ×6 (00:10→20:50)
[2017-10-06] MEDS: DILTIAZEM HCL 90MG TABLET PO SCH ×5 (00:50→23:20)
[2017-10-06] MEDS: HYDROCODONE/APAP 7.5/325MG 1 TAB TABLET PO PRN ×4 (00:54→23:26)
[2017-10-06] MEDS: METOPROLOL TARTRATE 50MG TABLET PO SCH ×2 (05:31→17:41)
[2017-10-06] MEDS: MORPHINE SULFATE 4 MG/ML CPJ (NOT FOR IM USE) IV PRN ×3 (05:32→21:20)
[2017-10-06 06:21] LABS: HEMOGLOBIN. 8.4 g/dL (12.0-16.0); MEAN CORPUSCULAR HEMOGLOBIN 27.6 pg (28.0-32.0); MEAN CORPUSCULAR VOLUME 85.2 fL (81.0-99.0); MEAN PLATELET VOLUME 7.8 fl (7.4-10.4); PLATELET 179 x1000/uL (130-400); RED BLOOD CELL COUNT 3.05 mill/uL (4.2-5.4); RED CELL DISTRIBUTION WIDTH 18.6 % (11.6-14.6)
[2017-10-06 07:02] LABS: CHLORIDE 98 mEq/L (98-107)
[2017-10-06] MEDS: INSULIN LISPRO 100 UNITS/ML SUBCUT SCH ×4 (08:00→21:25)
[2017-10-06] MEDS: BLOOD SUGAR DIAGNOSTIC STRIP TEST SCH ×4 (08:00→21:11)
[2017-10-06] MEDS: DOCUSATE SODIUM 100MG CAPSULE PO SCH (09:20)
[2017-10-06] MEDS: DIGOXIN 250MCG TABLET PO SCH (09:21)
[2017-10-06] MEDS: PREDNISONE 20MG TABLET PO SCH (09:21)
[2017-10-06] MEDS: SPIRONOLACTONE 25MG TABLET PO SCH (09:21)
[2017-10-06] MEDS: QUETIAPINE FUMARATE 25MG TABLET PO SCH ×2 (09:21→21:10)
[2017-10-06] MEDS: MULTIVITAMINS,THER W-MINERALS TABLET PO SCH (09:21)
[2017-10-06] MEDS: THIAMINE HCL 100MG TABLET PO SCH (09:21)
[2017-10-06] MEDS: AMBRISENTAN 10 MG PO SCH (09:22)
[2017-10-06] MEDS: NICOTINE 14MG PATCH TD SCH (09:22)
[2017-10-06] MEDS: UMECLIDINIUM BROMIDE 1 INH BLST.W.DEV IH SCH (09:23)
[2017-10-06] MEDS: FLUTICASONE/VILANTEROL 200-25 BLST.W.DEV ORI SCH (09:23)
[2017-10-06] MEDS: ENOXAPARIN 120MG/0.8ML SYR SUBCUT SCH ×2 (09:34→21:11)
[2017-10-06 16:37] LABS: PLATELET ESTIMATE NORMAL
[2017-10-06] MEDS: TRAZODONE HCL 50MG TABLET PO SCH (21:10)
[2017-10-07] VITALS (12 sets, daily range): BP systolic 95–134; BP diastolic 52–84
[2017-10-07] MEDS: IPRATROPIUM/ALBUTEROL 0.5-3(2.5)MG/3ML NEB HHN SCH ×6 (00:30→21:25)
[2017-10-07] MEDS ORDERED: MORPHINE SULFATE 4 MG/ML CPJ (NOT FOR IM USE) IV PRN (02:30)
[2017-10-07] MEDS: METOPROLOL TARTRATE 50MG TABLET PO SCH ×2 (05:59→17:40)
[2017-10-07] MEDS: DILTIAZEM HCL 90MG TABLET PO SCH ×3 (06:00→17:40)
[2017-10-07 06:20] LABS: HEMATOCRIT. 26.9 % (36.0-48.0); HEMOGLOBIN. 8.6 g/dL (12.0-16.0); MEAN CORPUSCULAR HEMOGLOBIN 27.5 pg (28.0-32.0); MEAN CORPUSCULAR VOLUME 85.9 fL (81.0-99.0); MEAN PLATELET VOLUME 7.9 fl (7.4-10.4); PLATELET 183 x1000/uL (130-400); RED BLOOD CELL COUNT 3.14 mill/uL (4.2-5.4); RED CELL DISTRIBUTION WIDTH 18.4 % (11.6-14.6)
[2017-10-07 06:50] LABS: CHLORIDE 101 mEq/L (98-107)
[2017-10-07] MEDS: BLOOD SUGAR DIAGNOSTIC STRIP TEST SCH ×4 (07:36→21:18)
[2017-10-07] MEDS: HYDROCODONE/APAP 7.5/325MG 1 TAB TABLET PO PRN ×2 (07:42→13:45)
[2017-10-07] MEDS: INSULIN LISPRO 100 UNITS/ML SUBCUT SCH ×4 (07:43→21:24)
[2017-10-07 08:24] LABS: BG BASE EXCESS 7.4 mmol/L (-2.0-2.0); BG DEOXYHEMOGLOBIN 7.2 % (0.0-5.0); BG HCO3 ACT 33.4 mmol/L (22.0-26.0); BG METHEMOGLOBIN 0.3 % (0.0-1.5); BG OXYGEN SATURATION 92.8 % (92.0-98.5); BG OXYHEMOGLOBIN 92.5 % (94.0-97.0); BG PCO2 56.5 mmHg (35.0-45.0); BG PO2 70.7 mmHg (75.0-100.0); BG SAMPLE SITE RIGHT RADIAL; BG TOTAL HEMOGLOBIN 8.5 g/dL (12.0-18.0); BG VENT MODE VAPOTHERM
[2017-10-07] MEDS: MULTIVITAMINS,THER W-MINERALS TABLET PO SCH (09:49)
[2017-10-07] MEDS: THIAMINE HCL 100MG TABLET PO SCH (09:50)
[2017-10-07] MEDS: QUETIAPINE FUMARATE 25MG TABLET PO SCH ×2 (09:50→21:17)
[2017-10-07] MEDS: DIGOXIN 250MCG TABLET PO SCH (09:50)
[2017-10-07] MEDS: PREDNISONE 20MG TABLET PO SCH (09:51)
[2017-10-07] MEDS: SPIRONOLACTONE 25MG TABLET PO SCH (09:51)
[2017-10-07] MEDS: DOCUSATE SODIUM 100MG CAPSULE PO SCH (09:51)
[2017-10-07] MEDS: NICOTINE 14MG PATCH TD SCH (09:52)
[2017-10-07] MEDS: AMBRISENTAN 10 MG PO SCH (09:53)
[2017-10-07] MEDS: UMECLIDINIUM BROMIDE 1 INH BLST.W.DEV IH SCH (09:53)
[2017-10-07] MEDS: FLUTICASONE/VILANTEROL 200-25 BLST.W.DEV ORI SCH (09:53)
[2017-10-07] MEDS: ENOXAPARIN 120MG/0.8ML SYR SUBCUT SCH ×2 (09:54→21:18)
[2017-10-07] MEDS ORDERED: LIDOCAINE HCL/PF 1% 2ML VIAL ONE (13:37)
[2017-10-07 16:37] LABS: PLATELET ESTIMATE NORMAL
[2017-10-07] MEDS: FUROSEMIDE 20MG TABLET PO SCH (17:40)
[2017-10-07] MEDS: MORPHINE SULFATE 4 MG/ML CPJ (NOT FOR IM USE) IV PRN ×2 (18:27→21:27)
[2017-10-07] MEDS: TRAZODONE HCL 50MG TABLET PO SCH (21:17)
[2017-10-07] MEDS: LACTULOSE 20G/30ML UDC PO PRN (22:53)
[2017-10-08] VITALS (13 sets, daily range): BP systolic 99–136; BP diastolic 60–80
[2017-10-08] MEDS: DILTIAZEM HCL 90MG TABLET PO SCH ×4 (01:01→18:06)
[2017-10-08] MEDS: HYDROCODONE/APAP 7.5/325MG 1 TAB TABLET PO PRN ×4 (01:04→22:32)
[2017-10-08] MEDS: IPRATROPIUM/ALBUTEROL 0.5-3(2.5)MG/3ML NEB HHN SCH ×6 (01:08→20:36)
[2017-10-08] MEDS: MORPHINE SULFATE 4 MG/ML CPJ (NOT FOR IM USE) IV PRN ×3 (05:42→20:13)
[2017-10-08] MEDS: METOPROLOL TARTRATE 50MG TABLET PO SCH ×2 (05:42→18:05)
[2017-10-08] MEDS: FUROSEMIDE 20MG TABLET PO SCH ×2 (06:24→18:05)
[2017-10-08] MEDS: FLUTICASONE/VILANTEROL 200-25 BLST.W.DEV ORI SCH (08:16)
[2017-10-08] MEDS: NICOTINE 14MG PATCH TD SCH (08:16)
[2017-10-08] MEDS: MULTIVITAMINS,THER W-MINERALS TABLET PO SCH (08:17)
[2017-10-08] MEDS: QUETIAPINE FUMARATE 25MG TABLET PO SCH ×2 (08:17→20:13)
[2017-10-08] MEDS: DIGOXIN 250MCG TABLET PO SCH (08:17)
[2017-10-08] MEDS: THIAMINE HCL 100MG TABLET PO SCH (08:17)
[2017-10-08] MEDS: PREDNISONE 20MG TABLET PO SCH (08:18)
[2017-10-08] MEDS: BLOOD SUGAR DIAGNOSTIC STRIP TEST SCH ×4 (08:18→20:14)
[2017-10-08] MEDS: DOCUSATE SODIUM 100MG CAPSULE PO SCH (08:18)
[2017-10-08] MEDS: BISACODYL 5MG TABLET PO PRN (08:18)
[2017-10-08] MEDS: SPIRONOLACTONE 25MG TABLET PO SCH (08:18)
[2017-10-08] MEDS: INSULIN LISPRO 100 UNITS/ML SUBCUT SCH ×4 (08:19→20:26)
[2017-10-08] MEDS: AMBRISENTAN 10 MG PO SCH (08:19)
[2017-10-08] MEDS: UMECLIDINIUM BROMIDE 1 INH BLST.W.DEV IH SCH (11:03)
[2017-10-08] MEDS: ENOXAPARIN 120MG/0.8ML SYR SUBCUT SCH ×2 (11:03→20:14)
[2017-10-08] MEDS: LACTULOSE 20G/30ML UDC PO PRN (18:05)
[2017-10-08] MEDS: TRAZODONE HCL 50MG TABLET PO SCH (20:13)
[2017-10-09 00:35] VITALS: BP 134/67
== END 2017-10-09 00:55 | DRG 291 ==
LOC: CVICU 15:44 → 5EST 09-16 18:38
PROVIDERS: ADMIT Hospitalist; ATTEND Hospitalist
PROC: 5A09357 Assistance with Respiratory Ventilation, Less than 24 Consecutive Hours, Continuous Positive Airway Pressure (ICD-10-PCS; 2017-09-13)
PROC: 5A09357 Assistance with Respiratory Ventilation, Less than 24 Consecutive Hours, Continuous Positive Airway Pressure (ICD-10-PCS; 2017-09-14)
PROC: 5A09357 Assistance with Respiratory Ventilation, Less than 24 Consecutive Hours, Continuous Positive Airway Pressure (ICD-10-PCS; 2017-09-15)
PROC: 5A09357 Assistance with Respiratory Ventilation, Less than 24 Consecutive Hours, Continuous Positive Airway Pressure (ICD-10-PCS; 2017-09-17)
PROC: 5A09357 Assistance with Respiratory Ventilation, Less than 24 Consecutive Hours, Continuous Positive Airway Pressure (ICD-10-PCS; 2017-09-18)
PROC: 5A09357 Assistance with Respiratory Ventilation, Less than 24 Consecutive Hours, Continuous Positive Airway Pressure (ICD-10-PCS; 2017-09-19)
PROC: 5A09357 Assistance with Respiratory Ventilation, Less than 24 Consecutive Hours, Continuous Positive Airway Pressure (ICD-10-PCS; 2017-09-21)
PROC: 5A09357 Assistance with Respiratory Ventilation, Less than 24 Consecutive Hours, Continuous Positive Airway Pressure (ICD-10-PCS; 2017-09-22)
PROC: 5A09357 Assistance with Respiratory Ventilation, Less than 24 Consecutive Hours, Continuous Positive Airway Pressure (ICD-10-PCS; 2017-09-23)
PROC: 5A09357 Assistance with Respiratory Ventilation, Less than 24 Consecutive Hours, Continuous Positive Airway Pressure (ICD-10-PCS; 2017-09-24)
PROC: 5A09357 Assistance with Respiratory Ventilation, Less than 24 Consecutive Hours, Continuous Positive Airway Pressure (ICD-10-PCS; 2017-09-25)
PROC: 5A09357 Assistance with Respiratory Ventilation, Less than 24 Consecutive Hours, Continuous Positive Airway Pressure (ICD-10-PCS; 2017-09-26)
PROC: 5A09357 Assistance with Respiratory Ventilation, Less than 24 Consecutive Hours, Continuous Positive Airway Pressure (ICD-10-PCS; 2017-09-27)
PROC: 30233N1 Transfusion of Nonautologous Red Blood Cells into Peripheral Vein, Percutaneous Approach (ICD-10-PCS; principal; 2017-09-28)
PROC: 5A09357 Assistance with Respiratory Ventilation, Less than 24 Consecutive Hours, Continuous Positive Airway Pressure (ICD-10-PCS; 2017-09-28)
PROC: 5A09357 Assistance with Respiratory Ventilation, Less than 24 Consecutive Hours, Continuous Positive Airway Pressure (ICD-10-PCS; 2017-09-29)
PROC: 5A09357 Assistance with Respiratory Ventilation, Less than 24 Consecutive Hours, Continuous Positive Airway Pressure (ICD-10-PCS; 2017-09-30)
PROC: 5A09357 Assistance with Respiratory Ventilation, Less than 24 Consecutive Hours, Continuous Positive Airway Pressure (ICD-10-PCS; 2017-10-02)
PROC: 5A09357 Assistance with Respiratory Ventilation, Less than 24 Consecutive Hours, Continuous Positive Airway Pressure (ICD-10-PCS; 2017-10-03)
PROC: 5A09357 Assistance with Respiratory Ventilation, Less than 24 Consecutive Hours, Continuous Positive Airway Pressure (ICD-10-PCS; 2017-10-05)
PROC: 5A09357 Assistance with Respiratory Ventilation, Less than 24 Consecutive Hours, Continuous Positive Airway Pressure (ICD-10-PCS; 2017-10-07)
PROC: 5A09357 Assistance with Respiratory Ventilation, Less than 24 Consecutive Hours, Continuous Positive Airway Pressure (ICD-10-PCS; 2017-10-08)
DX: I13.2 Hypertensive heart and chronic kidney disease with heart failure and with stage 5 chronic kidney disease, or end stage renal disease (principal); I50.33 Acute on chronic diastolic (congestive) heart failure; J96.21 Acute and chronic respiratory failure with hypoxia; E43 Unspecified severe protein-calorie malnutrition; J18.9 Pneumonia, unspecified organism; L89.153 Pressure ulcer of sacral region, stage 3; I27.20 Pulmonary hypertension, unspecified; E11.22 Type 2 diabetes mellitus with diabetic chronic kidney disease; E66.01 Morbid (severe) obesity due to excess calories; N18.6 End stage renal disease; J96.22 Acute and chronic respiratory failure with hypercapnia; J44.1 Chronic obstructive pulmonary disease with (acute) exacerbation; J44.0 Chronic obstructive pulmonary disease with (acute) lower respiratory infection; Z68.41 Body mass index [BMI] 40.0-44.9, adult; I48.2 Chronic atrial fibrillation; D50.9 Iron deficiency anemia, unspecified; E11.65 Type 2 diabetes mellitus with hyperglycemia; F17.210 Nicotine dependence, cigarettes, uncomplicated; F41.9 Anxiety disorder, unspecified; I35.0 Nonrheumatic aortic (valve) stenosis; G47.33 Obstructive sleep apnea (adult) (pediatric); F32.9 Major depressive disorder, single episode, unspecified; Z99.81 Dependence on supplemental oxygen; Z99.2 Dependence on renal dialysis; Z82.49 Family history of ischemic heart disease and other diseases of the circulatory system; Z90.710 Acquired absence of both cervix and uterus; Z79.899 Other long term (current) drug therapy
CPT/HCPCS: 36415; 36600; 71045; 80048; 80053; 80162; 82270; 82375; 82805; 82962; 83540; 83550; 83735; 83880; 85014; 85018; 85025; 85027; 85610; 86850; 86900; 86920; 92950; 93005; 93306; 93970; 94640; 94660; 97110; 97163; 97530; A6261; J1650; J1815; J1940; J2270; J2543; J3490; J7030; J7050; J7512; J7620; P9016; A4315

== ENCOUNTER 2018-06-05 12:50 | Inpatient (IN) | payer MEDICARE, MEDICAID ==
[~2018-06-05] VITALS: Ht 162.6 cm; Wt 115.2 kg
[~2018-06-05 12:50] MED LIST changes: +DOCU100T PO; +NICO-645 TOP; +P20 PO; +QUET25TA PO; +TADA20TA PO; +THIA100T13 PO; +TRAZ-212 PO
[2018-06-05] MEDS ORDERED: ALBUTEROL (0.083%) 2.5MG/3ML NEB HHN STA (13:07)
[2018-06-05] MEDS ORDERED: IPRATROPIUM BROMIDE (0.02%) 0.5MG/2.5ML NEB HHN STA (13:07)
[2018-06-05] MEDS ORDERED: METHYLPREDNISOLONE SOD SUCC 125 MG/2 ML VIAL IV STA (13:07)
[2018-06-05 13:27] LABS: BASOPHILS % 0.4 % (0.0-2.0); EOSINOPHILS % 6.1 % (0.0-5.0); HEMATOCRIT. 32.1 % (36.0-48.0); HEMOGLOBIN. 10.2 g/dL (12.0-16.0); LYMPHOCYTES % 24.9 % (20.0-50.0); MEAN CORPUSCULAR HEMOGLOBIN 24.8 pg (28.0-32.0); MEAN CORPUSCULAR VOLUME 78.3 fL (81.0-99.0); MEAN PLATELET VOLUME 6.9 fl (7.4-10.4); MONOCYTES % 9.9 % (2.0-8.0); NEUTROPHILS % 58.7 % (40.0-76.0); PLATELET 364 x1000/uL (130-400); RED BLOOD CELL COUNT 4.09 mill/uL (4.2-5.4); RED CELL DISTRIBUTION WIDTH 18.2 % (11.6-14.6)
[2018-06-05 13:35] LABS: CHLORIDE 102 mEq/L (98-107)
[2018-06-05] MEDS ORDERED: MORPHINE SULFATE 4 MG/ML CPJ (NOT FOR IM USE) IV ONE (15:30)
[2018-06-05] MEDS ORDERED: ENALAPRIL 2.5MG/2ML VIAL 2ML IV ONE (15:30)
[2018-06-05] MEDS ORDERED: FUROSEMIDE 40MG/4ML VIAL IVP ONE (15:30)
[2018-06-05] MEDS ORDERED: MORPHINE SULFATE 10 MG/ML CPJ IV NR (15:38)
[2018-06-05] MEDS ORDERED: ONDANSETRON HCL 4MG/2ML INJ IV PRN (16:30)
[2018-06-05] MEDS ORDERED: CLONIDINE 0.1MG TABLET PO PRN (16:30)
[2018-06-05] MEDS ORDERED: DIPHENHYDRAMINE 50MG/ML VIAL IV PRN (16:30)
[2018-06-05] MEDS ORDERED: ACETAMINOPHEN 325MG TABLET PO PRN (16:30)
[2018-06-05] MEDS ORDERED: MAGNESIUM/ALUMINUM HYDROXIDE/SIMETHICONE 30ML UDC PO PRN (16:30)
[2018-06-05] MEDS ORDERED: IPRATROPIUM/ALBUTEROL 0.5-3(2.5)MG/3ML NEB INH PRN (16:30)
[2018-06-05] MEDS ORDERED: DOCUSATE SODIUM 100MG CAPSULE PO PRN (16:30)
[2018-06-05] MEDS ORDERED: GUAIFENESIN 200MG/10ML SUGAR FREE UDC PO PRN (16:30)
[2018-06-05] MEDS ORDERED: LORAZEPAM 2MG/ML CPJ IV PRN (16:30)
[2018-06-05] MEDS ORDERED: NA PHOS,M-B/NA PHOS,DI-BA ENEMA 118ML PR PRN (17:00)
[2018-06-05] MEDS: HYDROCODONE/ACETAMINOPHEN 10/325MG TABLET PO PRN ×2 (19:34→23:53)
[2018-06-05 22:00] VITALS: BP 97/60
[2018-06-05] MEDS ORDERED: LEVOFLOXACIN 500MG PREMIX 100 ML IV SCH (22:00)
[2018-06-05] MEDS: FUROSEMIDE 40MG/4ML VIAL IV SCH (22:57)
[2018-06-05] MEDS: METHYLPREDNISOLONE SOD SUCC 125 MG/2 ML VIAL IV SCH (22:58)
[2018-06-05 23:00] VITALS: BP 91/46
[2018-06-05 23:46] LABS: CHLORIDE 101 mEq/L (98-107)
[2018-06-06] VITALS (15 sets, daily range): BP systolic 89–124; BP diastolic 37–67
[2018-06-06] MEDS: METHYLPREDNISOLONE SOD SUCC 125 MG/2 ML VIAL IV SCH ×4 (03:20→20:53)
[2018-06-06 05:55] LABS: BASOPHILS % 0.1 % (0.0-2.0); HEMATOCRIT. 28.7 % (36.0-48.0); HEMOGLOBIN. 9.3 g/dL (12.0-16.0); LYMPHOCYTES % 15.2 % (20.0-50.0); MEAN CORPUSCULAR HEMOGLOBIN 25.6 pg (28.0-32.0); MEAN CORPUSCULAR VOLUME 78.6 fL (81.0-99.0); MEAN PLATELET VOLUME 7.6 fl (7.4-10.4); MONOCYTES % 1.5 % (2.0-8.0); NEUTROPHILS % 83.2 % (40.0-76.0); PLATELET 331 x1000/uL (130-400); RED BLOOD CELL COUNT 3.65 mill/uL (4.2-5.4); RED CELL DISTRIBUTION WIDTH 18.1 % (11.6-14.6)
[2018-06-06] MEDS: HYDROCODONE/ACETAMINOPHEN 10/325MG TABLET PO PRN ×4 (06:12→23:11)
[2018-06-06 07:03] LABS: CHLORIDE 101 mEq/L (98-107)
[2018-06-06 07:11] LABS: LDL CHOLESTEROL 96 mg/dL (5-100)
[2018-06-06 07:12] LABS: HDL CHOLESTEROL 39 mg/dL (40-59)
[2018-06-06 07:13] LABS: T4 FREE 0.99 ng/dL (0.76-1.46)
[2018-06-06] MEDS ORDERED: DILT30TA3 MT (08:17)
[2018-06-06] MEDS ORDERED: SPIR25TA6 MT (08:17)
[2018-06-06] MEDS ORDERED: METO100T16 MT (08:17)
[2018-06-06] MEDS ORDERED: HYDR-4001 PO (08:17)
[2018-06-06] MEDS ORDERED: ALBU18HF2 IH (08:17)
[2018-06-06] MEDS ORDERED: APIX5TAB MT (08:17)
[2018-06-06] MEDS ORDERED: DIGO250T81 MT (08:17)
[2018-06-06] MEDS ORDERED: AMBR10TA3 MT (08:17)
[2018-06-06] MEDS ORDERED: FURO40TA5 MT (08:17)
[2018-06-06] MEDS: ASPIRIN 81MG EC TABLET PO SCH (08:56)
[2018-06-06] MEDS: FUROSEMIDE 40MG/4ML VIAL IV SCH ×2 (08:56→16:41)
[2018-06-06] MEDS ORDERED: MEDICATION NOT ON FORMULARY EA (Spironolactone 1 TAB) MT SCH (09:15)
[2018-06-06] MEDS ORDERED: MEDICATION NOT ON FORMULARY EA (Metoprolol Tartrate 1 TAB) MT SCH (09:15)
[2018-06-06] MEDS ORDERED: SPIRONOLACTONE 25MG TABLET PO SCH (09:30)
[2018-06-06] MEDS: METOPROLOL TARTRATE 100MG TABLET PO SCH ×2 (09:51→20:54)
[2018-06-06] MEDS: DILTIAZEM HCL 30MG TABLET PO SCH ×3 (09:51→18:17)
[2018-06-06] MEDS ORDERED: MEDICATION NOT ON FORMULARY EA (Apixaban (Eliquis) 1 TAB) MT SCH (10:15)
[2018-06-06] MEDS: IPRATROPIUM BROMIDE (0.02%) 0.5MG/2.5ML NEB HHN SCH ×3 (12:10→20:55)
[2018-06-06] MEDS ORDERED: SODIUM POLYSTYRENE SULFONATE 15 G/60 ML BOT PO NR (13:00)
[2018-06-06] MEDS: LEVOFLOXACIN 500MG PREMIX 100 ML IV SCH (13:09)
[2018-06-06] MEDS ORDERED: DEXTROSE 50% WATER 50ML SYRINGE IV PRN (14:45)
[2018-06-06] MEDS ORDERED: DIGOXIN 250MCG TABLET PO SCH (18:00)
[2018-06-06] MEDS: BLOOD SUGAR DIAGNOSTIC STRIP TEST SCH ×2 (18:05→20:38)
[2018-06-06] MEDS: INSULIN LISPRO 100 UNITS/ML SUBCUT SCH ×2 (18:16→20:53)
[2018-06-06] MEDS: AMBRISENTAN 10 MG PO SCH (18:16)
[2018-06-06] MEDS: APIXABAN 5 MG TABLET PO SCH (18:25)
[2018-06-07] VITALS (12 sets, daily range): BP systolic 91–127; BP diastolic 53–74
[2018-06-07] MEDS: IPRATROPIUM BROMIDE (0.02%) 0.5MG/2.5ML NEB HHN SCH ×6 (00:15→19:46)
[2018-06-07] MEDS: HYDROCODONE/ACETAMINOPHEN 10/325MG TABLET PO PRN ×5 (04:47→23:57)
[2018-06-07] MEDS: METHYLPREDNISOLONE SOD SUCC 125 MG/2 ML VIAL IV SCH ×4 (04:47→21:22)
[2018-06-07] MEDS: DILTIAZEM HCL 30MG TABLET PO SCH ×6 (05:48→23:57)
[2018-06-07 06:07] LABS: BASOPHILS % 0.2 % (0.0-2.0); HEMATOCRIT. 27.7 % (36.0-48.0); HEMOGLOBIN. 8.9 g/dL (12.0-16.0); LYMPHOCYTES % 8.4 % (20.0-50.0); MEAN CORPUSCULAR HEMOGLOBIN 25.3 pg (28.0-32.0); MEAN CORPUSCULAR VOLUME 78.9 fL (81.0-99.0); MEAN PLATELET VOLUME 7.8 fl (7.4-10.4); MONOCYTES % 3.9 % (2.0-8.0); NEUTROPHILS % 87.5 % (40.0-76.0); PLATELET 331 x1000/uL (130-400); RED BLOOD CELL COUNT 3.51 mill/uL (4.2-5.4); RED CELL DISTRIBUTION WIDTH 17.8 % (11.6-14.6)
[2018-06-07 06:14] LABS: CHLORIDE 98 mEq/L (98-107)
[2018-06-07] MEDS: BLOOD SUGAR DIAGNOSTIC STRIP TEST SCH ×4 (07:50→21:10)
[2018-06-07] MEDS: INSULIN LISPRO 100 UNITS/ML SUBCUT SCH ×4 (08:18→21:20)
[2018-06-07] MEDS: ASPIRIN 81MG EC TABLET PO SCH (08:19)
[2018-06-07] MEDS: APIXABAN 5 MG TABLET PO SCH ×2 (08:20→16:37)
[2018-06-07] MEDS: METOPROLOL TARTRATE 100MG TABLET PO SCH ×2 (08:20→21:21)
[2018-06-07] MEDS: FUROSEMIDE 40MG/4ML VIAL IV SCH ×2 (08:20→16:37)
[2018-06-07] MEDS: AMBRISENTAN 10 MG PO SCH (08:21)
[2018-06-07] MEDS: LEVOFLOXACIN 500MG PREMIX 100 ML IV SCH (14:16)
[2018-06-07] MEDS ORDERED: BISMUTH SUBSALICYLATE 262 MG/15 ML-120ML BOTTLE PO NR (18:30)
[2018-06-07 22:55] LABS: BG BILEVEL POS AIRWAY PRESSURE 15/5; BG CARBOXYHEMOGLOBIN 0.3 % (0.5-1.5); BG DEOXYHEMOGLOBIN 1.6 % (0.0-5.0); BG FRACTION INSPIRED OXYGEN 40; BG HCO3 ACT 31.8 mmol/L (22.0-26.0); BG METHEMOGLOBIN 0.3 % (0.0-1.5); BG OXYGEN SATURATION 98.4 % (92.0-98.5); BG OXYHEMOGLOBIN 97.8 % (94.0-97.0); BG PCO2 52.7 mmHg (35.0-45.0); BG PH 7.398 (7.350-7.450); BG PO2 139.3 mmHg (75.0-100.0); BG SAMPLE SITE RIGHT BRACHIAL; BG TOTAL HEMOGLOBIN 9.4 g/dL (12.0-18.0); BG VENT MODE MASK - BIPAP
[2018-06-07] MEDS ORDERED: ALBUTEROL (0.083%) 2.5MG/3ML NEB HHN PRN (23:00)
[2018-06-08] VITALS (20 sets, daily range): BP systolic 100–140; BP diastolic 55–76
[2018-06-08] MEDS: UMECLIDINIUM BROMIDE 1 INH BLST.W.DEV IH SCH ×2 (00:16→08:32)
[2018-06-08] MEDS: FLUTICASONE/VILANTEROL 200-25 BLST.W.DEV ORI SCH ×2 (00:16→08:32)
[2018-06-08] MEDS: METHYLPREDNISOLONE SOD SUCC 125 MG/2 ML VIAL IV SCH ×2 (03:35→10:27)
[2018-06-08] MEDS: DILTIAZEM HCL 30MG TABLET PO SCH ×4 (05:19→23:31)
[2018-06-08] MEDS: HYDROCODONE/ACETAMINOPHEN 10/325MG TABLET PO PRN ×5 (05:21→21:36)
[2018-06-08 06:55] LABS: HEMOGLOBIN. 8.7 g/dL (12.0-16.0); MEAN CORPUSCULAR HEMOGLOBIN 25.5 pg (28.0-32.0); MEAN CORPUSCULAR VOLUME 78.9 fL (81.0-99.0); MEAN PLATELET VOLUME 7.8 fl (7.4-10.4); PLATELET 315 x1000/uL (130-400); RED BLOOD CELL COUNT 3.42 mill/uL (4.2-5.4); RED CELL DISTRIBUTION WIDTH 17.9 % (11.6-14.6)
[2018-06-08 08:00] LABS: CHLORIDE 98 mEq/L (98-107)
[2018-06-08] MEDS: BLOOD SUGAR DIAGNOSTIC STRIP TEST SCH ×4 (08:00→20:59)
[2018-06-08] MEDS: FUROSEMIDE 40MG/4ML VIAL IV SCH ×2 (08:19→17:57)
[2018-06-08] MEDS: ASPIRIN 81MG EC TABLET PO SCH (08:19)
[2018-06-08] MEDS: APIXABAN 5 MG TABLET PO SCH ×2 (08:19→17:57)
[2018-06-08] MEDS: METOPROLOL TARTRATE 100MG TABLET PO SCH ×2 (08:20→20:56)
[2018-06-08] MEDS: INSULIN LISPRO 100 UNITS/ML SUBCUT SCH ×4 (08:21→21:36)
[2018-06-08 08:30] LABS: DIGOXIN 1.9 ng/mL (0.9-2.0)
[2018-06-08] MEDS: AMBRISENTAN 10 MG PO SCH (08:30)
[2018-06-08 09:21] LABS: PLATELET ESTIMATE NORMAL
[2018-06-08] MEDS: LEVOFLOXACIN 500MG PREMIX 100 ML IV SCH (14:00)
[2018-06-09] VITALS (12 sets, daily range): BP systolic 105–132; BP diastolic 53–77
[2018-06-09] MEDS: DILTIAZEM HCL 30MG TABLET PO SCH ×3 (05:46→17:25)
[2018-06-09 06:03] LABS: BASOPHILS % 0.1 % (0.0-2.0); HEMATOCRIT. 27.4 % (36.0-48.0); HEMOGLOBIN. 8.9 g/dL (12.0-16.0); LYMPHOCYTES % 12.5 % (20.0-50.0); MEAN CORPUSCULAR HEMOGLOBIN 25.3 pg (28.0-32.0); MEAN CORPUSCULAR VOLUME 77.8 fL (81.0-99.0); MEAN PLATELET VOLUME 7.5 fl (7.4-10.4); MONOCYTES % 10.3 % (2.0-8.0); NEUTROPHILS % 77.1 % (40.0-76.0); PLATELET 304 x1000/uL (130-400); RED BLOOD CELL COUNT 3.52 mill/uL (4.2-5.4); RED CELL DISTRIBUTION WIDTH 17.9 % (11.6-14.6)
[2018-06-09 06:33] LABS: CHLORIDE 98 mEq/L (98-107)
[2018-06-09] MEDS: HYDROCODONE/ACETAMINOPHEN 10/325MG TABLET PO PRN ×4 (06:44→18:29)
[2018-06-09 07:01] LABS: DIGOXIN 1.3 ng/mL (0.9-2.0)
[2018-06-09] MEDS: BLOOD SUGAR DIAGNOSTIC STRIP TEST SCH ×4 (08:15→20:59)
[2018-06-09] MEDS: PREDNISONE 20MG TABLET PO SCH (08:35)
[2018-06-09] MEDS: APIXABAN 5 MG TABLET PO SCH ×2 (08:35→17:23)
[2018-06-09] MEDS: ASPIRIN 81MG EC TABLET PO SCH (08:35)
[2018-06-09] MEDS: FUROSEMIDE 40MG/4ML VIAL IV SCH ×2 (08:35→17:22)
[2018-06-09] MEDS: METOPROLOL TARTRATE 100MG TABLET PO SCH ×2 (08:35→20:58)
[2018-06-09] MEDS: UMECLIDINIUM BROMIDE 1 INH BLST.W.DEV IH SCH (08:36)
[2018-06-09] MEDS: AMBRISENTAN 10 MG PO SCH (08:37)
[2018-06-09] MEDS: INSULIN LISPRO 100 UNITS/ML SUBCUT SCH ×4 (08:38→22:22)
[2018-06-09 12:57] LABS: BG BASE EXCESS 10.7 mmol/L (-2.0-2.0); BG CARBOXYHEMOGLOBIN 0.4 % (0.5-1.5); BG DEOXYHEMOGLOBIN 3.2 % (0.0-5.0); BG FRACTION INSPIRED OXYGEN 32; BG HCO3 ACT 36.2 mmol/L (22.0-26.0); BG METHEMOGLOBIN 0.1 % (0.0-1.5); BG OXYGEN SATURATION 96.8 % (92.0-98.5); BG OXYHEMOGLOBIN 96.3 % (94.0-97.0); BG PCO2 54.2 mmHg (35.0-45.0); BG PH 7.443 (7.350-7.450); BG PO2 91.3 mmHg (75.0-100.0); BG SAMPLE SITE LEFT RADIAL; BG TOTAL HEMOGLOBIN 9.8 g/dL (12.0-18.0); BG VENT MODE NASAL CANNULA
[2018-06-09] MEDS: LEVOFLOXACIN 500MG TABLET PO SCH (14:28)
[2018-06-09] MEDS: MORPHINE SULFATE 10MG/5ML ORAL SOLN UDC PO PRN (22:23)
[2018-06-10] VITALS (12 sets, daily range): BP systolic 94–122; BP diastolic 52–83
[2018-06-10] MEDS: DILTIAZEM HCL 30MG TABLET PO SCH ×4 (00:17→19:04)
[2018-06-10] MEDS: HYDROCODONE/ACETAMINOPHEN 10/325MG TABLET PO PRN ×3 (03:02→13:52)
[2018-06-10] MEDS: MORPHINE SULFATE 10MG/5ML ORAL SOLN UDC PO PRN (06:09)
[2018-06-10] MEDS: BLOOD SUGAR DIAGNOSTIC STRIP TEST SCH ×3 (07:30→17:30)
[2018-06-10] MEDS: INSULIN LISPRO 100 UNITS/ML SUBCUT SCH ×3 (08:00→19:01)
[2018-06-10] MEDS: UMECLIDINIUM BROMIDE 1 INH BLST.W.DEV IH SCH (09:36)
[2018-06-10] MEDS: FUROSEMIDE 40MG/4ML VIAL IV SCH ×2 (09:36→19:00)
[2018-06-10] MEDS: AMBRISENTAN 10 MG PO SCH (09:36)
[2018-06-10] MEDS: METOPROLOL TARTRATE 100MG TABLET PO SCH (09:37)
[2018-06-10] MEDS: PREDNISONE 20MG TABLET PO SCH (09:37)
[2018-06-10] MEDS: ASPIRIN 81MG EC TABLET PO SCH (09:37)
[2018-06-10] MEDS: APIXABAN 5 MG TABLET PO SCH ×2 (09:37→19:02)
[2018-06-10 11:59] LABS: EOSINOPHILS % 0.3 % (0.0-5.0); HEMOGLOBIN. 10.1 g/dL (12.0-16.0); MEAN CORPUSCULAR HEMOGLOBIN 24.8 pg (28.0-32.0); MEAN CORPUSCULAR VOLUME 78.4 fL (81.0-99.0); MEAN PLATELET VOLUME 7.6 fl (7.4-10.4); MONOCYTES % 8.6 % (2.0-8.0); NEUTROPHILS % 81.1 % (40.0-76.0); PLATELET 345 x1000/uL (130-400); RED BLOOD CELL COUNT 4.08 mill/uL (4.2-5.4); RED CELL DISTRIBUTION WIDTH 17.4 % (11.6-14.6)
[2018-06-10 12:49] LABS: CHLORIDE 95 mEq/L (98-107)
[2018-06-10] MEDS: LEVOFLOXACIN 500MG TABLET PO SCH (13:37)
[2018-06-10] MEDS ORDERED: HYDROCODONE/ACETAMINOPHEN 10/325MG TABLET PO PRN (18:45)
== END 2018-06-10 20:54 | disposition home health service (06) | DRG 291 ==
LOC: ER 12:50 → 5EST 15:55 → EDBEDREQ 16:03 → EDBEDREQTM 16:03 → ENRESERV 19:40
PROVIDERS: ADMIT Internal Medicine; ATTEND Internal Medicine
PROC: 5A09457 Assistance with Respiratory Ventilation, 24-96 Consecutive Hours, Continuous Positive Airway Pressure (ICD-10-PCS; principal; 2018-06-05)
DX: I11.0 Hypertensive heart disease with heart failure (principal); J96.20 Acute and chronic respiratory failure, unspecified whether with hypoxia or hypercapnia; I50.31 Acute diastolic (congestive) heart failure; R65.10 Systemic inflammatory response syndrome (SIRS) of non-infectious origin without acute organ dysfunction; J44.1 Chronic obstructive pulmonary disease with (acute) exacerbation; Z99.11 Dependence on respirator [ventilator] status; I27.20 Pulmonary hypertension, unspecified; E87.5 Hyperkalemia; D50.9 Iron deficiency anemia, unspecified; G47.33 Obstructive sleep apnea (adult) (pediatric); I25.10 Atherosclerotic heart disease of native coronary artery without angina pectoris; I35.0 Nonrheumatic aortic (valve) stenosis; I48.2 Chronic atrial fibrillation; Z79.01 Long term (current) use of anticoagulants; Z80.1 Family history of malignant neoplasm of trachea, bronchus and lung; Z82.3 Family history of stroke; Z82.49 Family history of ischemic heart disease and other diseases of the circulatory system; Z83.3 Family history of diabetes mellitus; Z87.891 Personal history of nicotine dependence; Z90.710 Acquired absence of both cervix and uterus; Z99.81 Dependence on supplemental oxygen; Z98.891 History of uterine scar from previous surgery; Z79.899 Other long term (current) drug therapy
CPT/HCPCS: 36415; 36600; 71045; 80048; 80061; 80162; 82375; 82805; 82962; 83036; 83735; 83880; 84132; 84439; 84443; 84484; 93005; 93306; 94640; 94644; 94660; 96365; 96375; 97162; 97167; 97530; 99291; A6261; C1893; J1815; J1940; J1956; J2270; J2930; J3490; J7050; J7512; J7611

== ENCOUNTER 2018-08-01 10:22 | Inpatient (IN) | payer MEDICARE, MEDICAID ==
[~2018-08-01] VITALS: Ht 165.1 cm; Wt 116.1 kg
[~2018-08-01 10:22] MED LIST changes: +AMBR10TA3 MT; -AMBR10TA3 PO; +APIX5TAB MT; -APIX5TAB PO; -BENA1TAB18 PO; -BUDE6HFA INH; +DIGO250T81 MT; -DILT120C61 PO; +DILT30TA3 MT; -DOCU100T PO; +FURO40TA5 MT; -FURO40TA5 PO; +HYDR-4001 PO; -HYDR-4005 PO; -METO-539 PO; +METO100T16 MT; -NICO-645 TD; -NICO-645 TOP; -P20 PO; -POTA8TAB8 PO; -QUET25TA PO; +SPIR25TA6 MT; -TADA20TA PO; -TADA20TA31 PO; -THIA100T13 PO; -TRAZ-212 PO
[2018-08-01] MEDS ORDERED: MORPHINE SULFATE 4 MG/ML CPJ (NOT FOR IM USE) IV STA (11:44)
[2018-08-01] MEDS ORDERED: ONDANSETRON HCL 4MG/2ML INJ IV STA (11:44)
[2018-08-01] MEDS ORDERED: SODIUM CHLORIDE 0.9% 500 ML IV ONE (12:00)
[2018-08-01 12:02] LABS: HEMATOCRIT. 28.2 % (36.0-48.0); HEMOGLOBIN. 8.7 g/dL (12.0-16.0); MEAN CORPUSCULAR HEMOGLOBIN 22.9 pg (28.0-32.0); MEAN CORPUSCULAR VOLUME 74.5 fL (81.0-99.0); MEAN PLATELET VOLUME 7.3 fl (7.4-10.4); PLATELET 480 x1000/uL (130-400); RED BLOOD CELL COUNT 3.79 mill/uL (4.2-5.4); RED CELL DISTRIBUTION WIDTH 18.5 % (11.6-14.6)
[2018-08-01 12:06] LABS: INR 1.1; PROTHROMBIN TIME 10.8 sec (9.1-11.1)
[2018-08-01 12:07] LABS: CHLORIDE 103 mEq/L (98-107)
[2018-08-01] MEDS ORDERED: FUROSEMIDE 40MG/4ML VIAL IVP ONE (12:30)
[2018-08-01 12:46] LABS: PLATELET ESTIMATE INCREASED
[2018-08-01 15:17] LABS: CLARITY URINE CLOUDY (CLEAR); COLOR URINE YELLOW (YELLOW); KETONES URINE NEGATIVE (NEGATIVE); LEUKOCYTE ESTERASE URINE NEGATIVE (NEGATIVE); NITRITE URINE NEGATIVE (NEGATIVE); OCCULT BLOOD URINE NEGATIVE (NEGATIVE); PROTEIN URINE NEGATIVE (NEGATIVE); SPECIFIC GRAVITY URINE 1.013 (1.005-1.030)
[2018-08-01] MEDS ORDERED: ALBUTEROL (0.083%) 2.5MG/3ML NEB HHN STA (15:39)
[2018-08-01] MEDS ORDERED: ASPIRIN 325MG TABLET PO ONE (16:00)
[2018-08-01] MEDS ORDERED: LEVOFLOXACIN 750MG PREMIX 150 ML IV ONE (16:15)
[2018-08-01] MEDS ORDERED: HYDROCODONE/ACETAMINOPHEN 5/325MG TABLET PO ONE ×2 (16:45→21:00)
[2018-08-01] MEDS ORDERED: ASPIRIN 325MG TABLET PO NR (20:45)
[2018-08-01] MEDS ORDERED: LORAZEPAM 2MG/ML CPJ IV PRN (21:15)
[2018-08-01] MEDS ORDERED: DOCUSATE SODIUM 100MG CAPSULE PO PRN (21:15)
[2018-08-01] MEDS ORDERED: GUAIFENESIN 200MG/10ML SUGAR FREE UDC PO PRN (21:15)
[2018-08-01] MEDS ORDERED: CLONIDINE 0.1MG TABLET PO PRN (21:15)
[2018-08-01] MEDS ORDERED: ACETAMINOPHEN 325MG TABLET PO PRN (21:15)
[2018-08-01] MEDS ORDERED: DEXTROSE 50% WATER 50ML SYRINGE IV PRN (21:15)
[2018-08-01] MEDS ORDERED: DIPHENHYDRAMINE 50MG/ML VIAL IV PRN (21:15)
[2018-08-01] MEDS ORDERED: MAGNESIUM/ALUMINUM HYDROXIDE/SIMETHICONE 30ML UDC PO PRN (21:15)
[2018-08-01] MEDS ORDERED: ONDANSETRON HCL 4MG/2ML INJ IV PRN (21:15)
[2018-08-01] MEDS ORDERED: HYDRALAZINE 20MG/ML VIAL IV PRN (21:15)
[2018-08-01 21:25] VITALS: BP 104/44
[2018-08-01] MEDS: HYDROMORPHONE HCL/PF 2MG/ML CPJ IV PRN (22:54)
[2018-08-01] MEDS: APIXABAN 5 MG TABLET PO SCH (22:57)
[2018-08-01] MEDS: SODIUM CHLORIDE 0.9% INJ 3ML FLUSH IVF SCH (22:58)
[2018-08-01 22:59] VITALS: BP 104/44
[2018-08-02] VITALS: BP 110/54
[2018-08-02 00:06] LABS: CREATINE KINASE 16 IU/L (26-192)
[2018-08-02 00:07] LABS: CREATINE KINASE MB FRACTION < 1.0 ng/mL (0.5-3.6)
[2018-08-02] MEDS ORDERED: DIGOXIN 500MCG/2ML AMP IV NR (00:30)
[2018-08-02 04:00] VITALS: BP 98/53
[2018-08-02] MEDS: HYDROCODONE/ACETAMINOPHEN 5/325MG TABLET PO PRN (04:48)
[2018-08-02 06:34] LABS: BASOPHILS % 0.2 % (0.0-2.0); EOSINOPHILS % 0.6 % (0.0-5.0); HEMATOCRIT. 27.8 % (36.0-48.0); HEMOGLOBIN. 8.2 g/dL (12.0-16.0); LYMPHOCYTES % 20.2 % (20.0-50.0); MEAN CORPUSCULAR HEMOGLOBIN 23.3 pg (28.0-32.0); MEAN CORPUSCULAR VOLUME 78.9 fL (81.0-99.0); MONOCYTES % 8.4 % (2.0-8.0); NEUTROPHILS % 70.6 % (40.0-76.0); PLATELET 384 x1000/uL (130-400); RED BLOOD CELL COUNT 3.52 mill/uL (4.2-5.4); RED CELL DISTRIBUTION WIDTH 19.2 % (11.6-14.6)
[2018-08-02] MEDS: INSULIN LISPRO 100 UNITS/ML SUBCUT SCH ×4 (06:39→21:08)
[2018-08-02] MEDS: SODIUM CHLORIDE 0.9% INJ 3ML FLUSH IVF SCH ×3 (06:39→21:08)
[2018-08-02] MEDS: BLOOD SUGAR DIAGNOSTIC STRIP TEST SCH ×4 (06:39→21:00)
[2018-08-02 07:27] LABS: CHLORIDE 104 mEq/L (98-107)
[2018-08-02 07:36] LABS: LDL CHOLESTEROL 80 mg/dL (5-100)
[2018-08-02 07:37] LABS: CREATINE KINASE MB FRACTION < 1.0 ng/mL (0.5-3.6)
[2018-08-02 07:38] LABS: HDL CHOLESTEROL 38 mg/dL (40-59); T4 FREE 0.92 ng/dL (0.76-1.46)
[2018-08-02 07:41] LABS: CREATINE KINASE 16 IU/L (26-192)
[2018-08-02 08:00] VITALS: BP 99/43
[2018-08-02] MEDS ORDERED: SODIUM CHLORIDE 0.9% 250 ML IV ONE (08:45)
[2018-08-02] MEDS: METOPROLOL TARTRATE 25MG TABLET PO SCH ×2 (09:00→21:00)
[2018-08-02] MEDS ORDERED: APIXABAN 5 MG TABLET PO SCH (09:00)
[2018-08-02] MEDS: FUROSEMIDE 40MG/4ML VIAL IV SCH (09:00)
[2018-08-02] MEDS: APIXABAN 5 MG TABLET PO SCH ×2 (09:42→16:05)
[2018-08-02] MEDS: HYDROCODONE/ACETAMINOPHEN 10/325MG TABLET PO PRN ×4 (09:42→23:05)
[2018-08-02] MEDS: DILTIAZEM HCL 60MG TABLET PO SCH ×3 (10:04→21:06)
[2018-08-02 12:00] VITALS: BP 109/48
[2018-08-02] MEDS ORDERED: SODIUM CHLORIDE 0.9% 250 ML IV NR (12:00)
[2018-08-02] MEDS ORDERED: DILTIAZEM HCL 60MG TABLET PO SCH (14:00)
[2018-08-02 16:00] VITALS: BP 107/49
[2018-08-02] MEDS ORDERED: LEVOFLOXACIN 500MG PREMIX 100 ML IV SCH (16:00)
[2018-08-02] MEDS: IPRATROPIUM/ALBUTEROL 0.5-3(2.5)MG/3ML NEB INH PRN (16:09)
[2018-08-02] MEDS: LEVOFLOXACIN 500MG PREMIX 100 ML IV SCH (17:48)
[2018-08-02] MEDS: DIGOXIN 250MCG TABLET PO SCH (17:49)
[2018-08-02 20:00] VITALS: BP 105/46
[2018-08-03] VITALS: BP 95/36
[2018-08-03] MEDS: IPRATROPIUM/ALBUTEROL 0.5-3(2.5)MG/3ML NEB HHN SCH ×5 (00:16→20:40)
[2018-08-03] MEDS: DILTIAZEM HCL 60MG TABLET PO SCH ×4 (03:58→21:15)
[2018-08-03 04:00] VITALS: BP 115/57
[2018-08-03] MEDS: SODIUM CHLORIDE 0.9% INJ 3ML FLUSH IVF SCH ×3 (05:23→20:52)
[2018-08-03] MEDS: HYDROCODONE/ACETAMINOPHEN 10/325MG TABLET PO PRN ×3 (05:23→18:02)
[2018-08-03] MEDS: BLOOD SUGAR DIAGNOSTIC STRIP TEST SCH ×4 (06:00→21:00)
[2018-08-03] MEDS: INSULIN LISPRO 100 UNITS/ML SUBCUT SCH ×4 (06:00→21:23)
[2018-08-03 07:40] LABS: CHLORIDE 103 mEq/L (98-107)
[2018-08-03 07:55] LABS: BASOPHILS % 0.3 % (0.0-2.0); EOSINOPHILS % 2.4 % (0.0-5.0); HEMATOCRIT. 27.4 % (36.0-48.0); HEMOGLOBIN. 8.5 g/dL (12.0-16.0); LYMPHOCYTES % 23.5 % (20.0-50.0); MEAN CORPUSCULAR HEMOGLOBIN 23.2 pg (28.0-32.0); MEAN CORPUSCULAR VOLUME 74.3 fL (81.0-99.0); MEAN PLATELET VOLUME 7.1 fl (7.4-10.4); MONOCYTES % 7.4 % (2.0-8.0); NEUTROPHILS % 66.4 % (40.0-76.0); PLATELET 406 x1000/uL (130-400); RED BLOOD CELL COUNT 3.69 mill/uL (4.2-5.4); RED CELL DISTRIBUTION WIDTH 18.8 % (11.6-14.6)
[2018-08-03 08:00] VITALS: BP 103/44
[2018-08-03] MEDS: METOPROLOL TARTRATE 25MG TABLET PO SCH ×2 (09:00→20:47)
[2018-08-03] MEDS: FUROSEMIDE 40MG/4ML VIAL IV SCH (09:24)
[2018-08-03] MEDS: APIXABAN 5 MG TABLET PO SCH ×2 (09:24→17:08)
[2018-08-03] MEDS: HYDROMORPHONE HCL/PF 2MG/ML CPJ IV PRN ×2 (09:34→21:16)
[2018-08-03 11:16] LABS: BG CARBOXYHEMOGLOBIN 0.6 % (0.5-1.5); BG DEOXYHEMOGLOBIN 8.6 % (0.0-5.0); BG FRACTION INSPIRED OXYGEN 28; BG METHEMOGLOBIN 0.1 % (0.0-1.5); BG OXYGEN SATURATION 91.3 % (92.0-98.5); BG OXYHEMOGLOBIN 90.7 % (94.0-97.0); BG PCO2 44.5 mmHg (35.0-45.0); BG PH 7.416 (7.350-7.450); BG PO2 63.9 mmHg (75.0-100.0); BG SAMPLE SITE RIGHT RADIAL; BG TOTAL HEMOGLOBIN 9.7 g/dL (12.0-18.0); BG VENT MODE NASAL CANNULA
[2018-08-03 12:00] VITALS: BP 100/62
[2018-08-03] MEDS ORDERED: LIDOCAINE HCL/PF 1% 2ML VIAL ONE (15:12)
[2018-08-03 16:00] VITALS: BP 91/45
[2018-08-03] MEDS: LEVOFLOXACIN 500MG PREMIX 100 ML IV SCH (17:08)
[2018-08-03] MEDS: DIGOXIN 250MCG TABLET PO SCH (17:08)
[2018-08-03] MEDS: LETAIRIS 10 MG PO SCH (19:04)
[2018-08-03 20:00] VITALS: BP 97/59
[2018-08-03] MEDS: PREDNISONE 20MG TABLET PO SCH (21:15)
[2018-08-04] VITALS (7 sets, daily range): BP systolic 89–124; BP diastolic 44–56
[2018-08-04] MEDS: IPRATROPIUM/ALBUTEROL 0.5-3(2.5)MG/3ML NEB HHN SCH ×6 (00:04→21:10)
[2018-08-04] MEDS: DILTIAZEM HCL 60MG TABLET PO SCH ×4 (02:44→20:38)
[2018-08-04] MEDS: HYDROCODONE/ACETAMINOPHEN 10/325MG TABLET PO PRN ×4 (02:50→20:39)
[2018-08-04] MEDS: SODIUM CHLORIDE 0.9% INJ 3ML FLUSH IVF SCH ×3 (06:33→22:00)
[2018-08-04] MEDS: BLOOD SUGAR DIAGNOSTIC STRIP TEST SCH ×4 (06:34→20:39)
[2018-08-04] MEDS: INSULIN LISPRO 100 UNITS/ML SUBCUT SCH ×4 (06:35→21:04)
[2018-08-04 08:09] LABS: CHLORIDE 100 mEq/L (98-107)
[2018-08-04 08:10] LABS: HEMATOCRIT. 28.1 % (36.0-48.0); HEMOGLOBIN. 8.6 g/dL (12.0-16.0); LYMPHOCYTES % 10.7 % (20.0-50.0); MEAN CORPUSCULAR HEMOGLOBIN 22.4 pg (28.0-32.0); MEAN CORPUSCULAR VOLUME 73.5 fL (81.0-99.0); MEAN PLATELET VOLUME 6.9 fl (7.4-10.4); MONOCYTES % 2.6 % (2.0-8.0); NEUTROPHILS % 86.7 % (40.0-76.0); PLATELET 384 x1000/uL (130-400); RED BLOOD CELL COUNT 3.82 mill/uL (4.2-5.4); RED CELL DISTRIBUTION WIDTH 19.1 % (11.6-14.6)
[2018-08-04] MEDS: METOPROLOL TARTRATE 25MG TABLET PO SCH ×2 (08:28→20:38)
[2018-08-04] MEDS: APIXABAN 5 MG TABLET PO SCH ×2 (08:53→17:53)
[2018-08-04] MEDS: FUROSEMIDE 40MG/4ML VIAL IV SCH (08:53)
[2018-08-04] MEDS: LETAIRIS 10 MG PO SCH (08:53)
[2018-08-04] MEDS: PREDNISONE 20MG TABLET PO SCH (08:53)
[2018-08-04] MEDS: HYDROMORPHONE HCL/PF 2MG/ML CPJ IV PRN ×2 (12:02→18:52)
[2018-08-04] MEDS: DIGOXIN 250MCG TABLET PO SCH (17:53)
[2018-08-04] MEDS: NITROFURANTOIN 100MG M/M CAPSULE PO SCH (20:38)
[2018-08-05] VITALS: BP 106/54
[2018-08-05] MEDS: HYDROCODONE/ACETAMINOPHEN 10/325MG TABLET PO PRN ×5 (01:11→21:36)
[2018-08-05] MEDS: IPRATROPIUM/ALBUTEROL 0.5-3(2.5)MG/3ML NEB HHN SCH ×3 (01:24→08:52)
[2018-08-05] MEDS: DILTIAZEM HCL 60MG TABLET PO SCH ×4 (03:41→20:41)
[2018-08-05] MEDS: HYDROMORPHONE HCL/PF 2MG/ML CPJ IV PRN ×4 (03:42→22:26)
[2018-08-05 04:00] VITALS: BP 117/61
[2018-08-05] MEDS: BLOOD SUGAR DIAGNOSTIC STRIP TEST SCH ×4 (06:29→20:36)
[2018-08-05] MEDS: INSULIN LISPRO 100 UNITS/ML SUBCUT SCH ×4 (06:38→20:43)
[2018-08-05] MEDS: SODIUM CHLORIDE 0.9% INJ 3ML FLUSH IVF SCH ×3 (06:38→21:39)
[2018-08-05 06:41] LABS: BASOPHILS % 0.1 % (0.0-2.0); EOSINOPHILS % 0.4 % (0.0-5.0); HEMATOCRIT. 26.8 % (36.0-48.0); HEMOGLOBIN. 8.2 g/dL (12.0-16.0); LYMPHOCYTES % 17.4 % (20.0-50.0); MEAN CORPUSCULAR HEMOGLOBIN 22.4 pg (28.0-32.0); MEAN CORPUSCULAR VOLUME 73.5 fL (81.0-99.0); MEAN PLATELET VOLUME 7.1 fl (7.4-10.4); MONOCYTES % 7.9 % (2.0-8.0); NEUTROPHILS % 74.2 % (40.0-76.0); PLATELET 370 x1000/uL (130-400); RED BLOOD CELL COUNT 3.64 mill/uL (4.2-5.4); RED CELL DISTRIBUTION WIDTH 19.1 % (11.6-14.6)
[2018-08-05 07:23] LABS: CHLORIDE 99 mEq/L (98-107)
[2018-08-05 08:00] VITALS: BP 100/53
[2018-08-05] MEDS: PREDNISONE 20MG TABLET PO SCH (08:59)
[2018-08-05] MEDS: NITROFURANTOIN 100MG M/M CAPSULE PO SCH ×2 (09:00→20:41)
[2018-08-05] MEDS: METOPROLOL TARTRATE 25MG TABLET PO SCH ×2 (09:00→20:35)
[2018-08-05] MEDS: APIXABAN 5 MG TABLET PO SCH ×2 (09:00→17:27)
[2018-08-05] MEDS: LETAIRIS 10 MG PO SCH (09:01)
[2018-08-05] MEDS: FLUTICASONE/VILANTEROL 200-25 BLST.W.DEV ORI SCH (10:50)
[2018-08-05] MEDS: UMECLIDINIUM BROMIDE 1 INH BLST.W.DEV IH SCH (10:50)
[2018-08-05] MEDS: FUROSEMIDE 20MG TABLET PO SCH ×2 (11:33→17:27)
[2018-08-05 12:00] VITALS: BP 97/49
[2018-08-05 16:00] VITALS: BP 101/57
[2018-08-05] MEDS: DIGOXIN 250MCG TABLET PO SCH (17:27)
[2018-08-05 20:00] VITALS: BP 104/49
[2018-08-05] MEDS: IPRATROPIUM/ALBUTEROL 0.5-3(2.5)MG/3ML NEB INH PRN (21:01)
[2018-08-06] VITALS (7 sets, daily range): BP systolic 101–122; BP diastolic 48–83
[2018-08-06] MEDS: DILTIAZEM HCL 60MG TABLET PO SCH ×4 (03:50→20:27)
[2018-08-06] MEDS: HYDROMORPHONE HCL/PF 2MG/ML CPJ IV PRN ×4 (04:18→23:29)
[2018-08-06] MEDS: SODIUM CHLORIDE 0.9% INJ 3ML FLUSH IVF SCH ×3 (06:08→22:02)
[2018-08-06] MEDS: BLOOD SUGAR DIAGNOSTIC STRIP TEST SCH ×4 (06:15→20:31)
[2018-08-06] MEDS: INSULIN LISPRO 100 UNITS/ML SUBCUT SCH ×4 (06:15→20:31)
[2018-08-06] MEDS: FUROSEMIDE 20MG TABLET PO SCH ×2 (06:17→17:33)
[2018-08-06] MEDS: APIXABAN 5 MG TABLET PO SCH ×2 (08:10→17:33)
[2018-08-06] MEDS: PREDNISONE 20MG TABLET PO SCH (08:10)
[2018-08-06] MEDS: LETAIRIS 10 MG PO SCH (08:10)
[2018-08-06] MEDS: NITROFURANTOIN 100MG M/M CAPSULE PO SCH ×2 (08:10→20:28)
[2018-08-06] MEDS: HYDROCODONE/ACETAMINOPHEN 10/325MG TABLET PO PRN ×2 (08:11→20:28)
[2018-08-06] MEDS: METOPROLOL TARTRATE 25MG TABLET PO SCH ×2 (08:12→20:28)
[2018-08-06] MEDS: HYDROCODONE/ACETAMINOPHEN 5/325MG TABLET PO PRN (14:08)
[2018-08-06] MEDS: IPRATROPIUM/ALBUTEROL 0.5-3(2.5)MG/3ML NEB INH PRN (14:37)
[2018-08-06] MEDS: UMECLIDINIUM BROMIDE 1 INH BLST.W.DEV IH SCH (14:57)
[2018-08-06] MEDS: FLUTICASONE/VILANTEROL 200-25 BLST.W.DEV ORI SCH (14:59)
[2018-08-06] MEDS: DIGOXIN 250MCG TABLET PO SCH (17:33)
[2018-08-07] MEDS: DILTIAZEM HCL 60MG TABLET PO SCH ×4 (03:30→20:59)
[2018-08-07 04:00] VITALS: BP 120/69
[2018-08-07] MEDS: HYDROMORPHONE HCL/PF 2MG/ML CPJ IV PRN ×5 (05:31→21:58)
[2018-08-07] MEDS: SODIUM CHLORIDE 0.9% INJ 3ML FLUSH IVF SCH ×3 (05:35→21:15)
[2018-08-07] MEDS: BLOOD SUGAR DIAGNOSTIC STRIP TEST SCH ×4 (06:06→21:14)
[2018-08-07] MEDS: INSULIN LISPRO 100 UNITS/ML SUBCUT SCH ×4 (06:23→21:15)
[2018-08-07] MEDS: FUROSEMIDE 20MG TABLET PO SCH ×2 (06:25→18:08)
[2018-08-07 08:00] VITALS: BP 115/70
[2018-08-07] MEDS: METOPROLOL TARTRATE 25MG TABLET PO SCH ×2 (08:15→20:59)
[2018-08-07] MEDS: APIXABAN 5 MG TABLET PO SCH ×2 (08:16→18:08)
[2018-08-07] MEDS: NITROFURANTOIN 100MG M/M CAPSULE PO SCH ×2 (08:16→20:57)
[2018-08-07] MEDS: PREDNISONE 20MG TABLET PO SCH (08:17)
[2018-08-07] MEDS: HYDROCODONE/ACETAMINOPHEN 10/325MG TABLET PO PRN (08:18)
[2018-08-07] MEDS: LETAIRIS 10 MG PO SCH (08:22)
[2018-08-07] MEDS: UMECLIDINIUM BROMIDE 1 INH BLST.W.DEV IH SCH (08:23)
[2018-08-07] MEDS: FLUTICASONE/VILANTEROL 200-25 BLST.W.DEV ORI SCH (08:23)
[2018-08-07 10:00] LABS: CHLORIDE 96 mEq/L (98-107)
[2018-08-07 10:10] LABS: BASOPHILS % 0.2 % (0.0-2.0); EOSINOPHILS % 0.5 % (0.0-5.0); HEMOGLOBIN. 9.4 g/dL (12.0-16.0); LYMPHOCYTES % 19.9 % (20.0-50.0); MEAN CORPUSCULAR HEMOGLOBIN 22.2 pg (28.0-32.0); MEAN CORPUSCULAR VOLUME 73.2 fL (81.0-99.0); MEAN PLATELET VOLUME 7.1 fl (7.4-10.4); MONOCYTES % 8.8 % (2.0-8.0); NEUTROPHILS % 70.6 % (40.0-76.0); PLATELET 377 x1000/uL (130-400); RED BLOOD CELL COUNT 4.24 mill/uL (4.2-5.4)
[2018-08-07 12:00] VITALS: BP 99/63
[2018-08-07 16:00] VITALS: BP 100/63
[2018-08-07] MEDS: DIGOXIN 250MCG TABLET PO SCH (18:08)
[2018-08-07 20:00] VITALS: BP 119/55
[2018-08-07] MEDS: IPRATROPIUM/ALBUTEROL 0.5-3(2.5)MG/3ML NEB INH PRN (21:31)
[2018-08-08] VITALS: BP 106/54
[2018-08-08] MEDS: HYDROMORPHONE HCL/PF 2MG/ML CPJ IV PRN ×3 (03:15→10:27)
[2018-08-08] MEDS: DILTIAZEM HCL 60MG TABLET PO SCH ×4 (03:16→21:35)
[2018-08-08 04:00] VITALS: BP 111/59
[2018-08-08] MEDS: FUROSEMIDE 20MG TABLET PO SCH ×2 (06:14→16:33)
[2018-08-08] MEDS: SODIUM CHLORIDE 0.9% INJ 3ML FLUSH IVF SCH ×3 (06:14→21:39)
[2018-08-08] MEDS: INSULIN LISPRO 100 UNITS/ML SUBCUT SCH ×4 (06:14→21:33)
[2018-08-08] MEDS: BLOOD SUGAR DIAGNOSTIC STRIP TEST SCH ×4 (06:14→21:35)
[2018-08-08 08:00] VITALS: BP 101/59
[2018-08-08] MEDS: FLUTICASONE/VILANTEROL 200-25 BLST.W.DEV ORI SCH (09:00)
[2018-08-08] MEDS: UMECLIDINIUM BROMIDE 1 INH BLST.W.DEV IH SCH (09:00)
[2018-08-08] MEDS: PREDNISONE 20MG TABLET PO SCH (10:23)
[2018-08-08] MEDS: NITROFURANTOIN 100MG M/M CAPSULE PO SCH ×2 (10:23→21:35)
[2018-08-08] MEDS: APIXABAN 5 MG TABLET PO SCH ×2 (10:24→16:33)
[2018-08-08] MEDS: METOPROLOL TARTRATE 25MG TABLET PO SCH ×2 (10:24→21:34)
[2018-08-08] MEDS: LETAIRIS 10 MG PO SCH (10:25)
[2018-08-08 12:00] VITALS: BP 107/67
[2018-08-08] MEDS: HYDROCODONE/ACETAMINOPHEN 10/325MG TABLET PO PRN ×2 (13:52→20:37)
[2018-08-08] MEDS: IPRATROPIUM/ALBUTEROL 0.5-3(2.5)MG/3ML NEB INH PRN (14:39)
[2018-08-08] MEDS ORDERED: HYDROCODONE/ACETAMINOPHEN 10/325MG TABLET PO NR (16:15)
[2018-08-08] MEDS: DIGOXIN 250MCG TABLET PO SCH (18:08)
[2018-08-08 20:00] VITALS: BP 138/69
[2018-08-09] VITALS: BP 93/55
[2018-08-09] MEDS: DILTIAZEM HCL 60MG TABLET PO SCH ×4 (03:16→21:15)
[2018-08-09] MEDS: HYDROCODONE/ACETAMINOPHEN 10/325MG TABLET PO PRN ×6 (03:47→21:45)
[2018-08-09 04:00] VITALS: BP 119/59
[2018-08-09] MEDS: BLOOD SUGAR DIAGNOSTIC STRIP TEST SCH ×4 (06:39→21:15)
[2018-08-09] MEDS: INSULIN LISPRO 100 UNITS/ML SUBCUT SCH ×4 (06:39→21:14)
[2018-08-09 07:02] LABS: BASOPHILS % 0.1 % (0.0-2.0); EOSINOPHILS % 0.3 % (0.0-5.0); HEMATOCRIT. 28.7 % (36.0-48.0); HEMOGLOBIN. 8.8 g/dL (12.0-16.0); LYMPHOCYTES % 15.8 % (20.0-50.0); MEAN CORPUSCULAR HEMOGLOBIN 22.2 pg (28.0-32.0); MEAN CORPUSCULAR VOLUME 72.4 fL (81.0-99.0); MONOCYTES % 8.5 % (2.0-8.0); NEUTROPHILS % 75.3 % (40.0-76.0); PLATELET 316 x1000/uL (130-400); RED BLOOD CELL COUNT 3.96 mill/uL (4.2-5.4); RED CELL DISTRIBUTION WIDTH 18.6 % (11.6-14.6)
[2018-08-09 07:07] LABS: CHLORIDE 97 mEq/L (98-107)
[2018-08-09] MEDS: SODIUM CHLORIDE 0.9% INJ 3ML FLUSH IVF SCH ×3 (07:26→21:28)
[2018-08-09 08:00] VITALS: BP 103/45
[2018-08-09] MEDS: FUROSEMIDE 20MG TABLET PO SCH ×2 (08:22→17:53)
[2018-08-09] MEDS: METOPROLOL TARTRATE 25MG TABLET PO SCH ×2 (09:00→21:15)
[2018-08-09] MEDS: PREDNISONE 20MG TABLET PO SCH (09:49)
[2018-08-09] MEDS: NITROFURANTOIN 100MG M/M CAPSULE PO SCH ×2 (09:49→21:15)
[2018-08-09] MEDS: APIXABAN 5 MG TABLET PO SCH ×2 (09:49→17:53)
[2018-08-09] MEDS: LETAIRIS 10 MG PO SCH (09:49)
[2018-08-09] MEDS: UMECLIDINIUM BROMIDE 1 INH BLST.W.DEV IH SCH (09:50)
[2018-08-09] MEDS: FLUTICASONE/VILANTEROL 200-25 BLST.W.DEV ORI SCH (09:50)
[2018-08-09 12:00] VITALS: BP 109/46
[2018-08-09 15:53] VITALS: BP 121/57
[2018-08-09] MEDS: DIGOXIN 250MCG TABLET PO SCH (18:29)
[2018-08-09] MEDS ORDERED: HYDROMORPHONE HCL/PF 2MG/ML CPJ IV NR (18:30)
[2018-08-09 20:00] VITALS: BP 123/65
[2018-08-10] VITALS (7 sets, daily range): BP systolic 105–132; BP diastolic 47–72
[2018-08-10] MEDS: DILTIAZEM HCL 60MG TABLET PO SCH ×4 (04:06→20:04)
[2018-08-10] MEDS: HYDROCODONE/ACETAMINOPHEN 10/325MG TABLET PO PRN ×5 (04:06→19:43)
[2018-08-10] MEDS: BLOOD SUGAR DIAGNOSTIC STRIP TEST SCH ×4 (05:53→20:18)
[2018-08-10] MEDS: SODIUM CHLORIDE 0.9% INJ 3ML FLUSH IVF SCH ×3 (05:53→22:00)
[2018-08-10] MEDS: INSULIN LISPRO 100 UNITS/ML SUBCUT SCH ×4 (06:02→20:33)
[2018-08-10] MEDS: FUROSEMIDE 20MG TABLET PO SCH ×2 (06:16→18:44)
[2018-08-10] MEDS: IPRATROPIUM/ALBUTEROL 0.5-3(2.5)MG/3ML NEB INH PRN ×3 (08:03→21:51)
[2018-08-10] MEDS: FLUTICASONE/VILANTEROL 200-25 BLST.W.DEV ORI SCH (09:00)
[2018-08-10] MEDS: UMECLIDINIUM BROMIDE 1 INH BLST.W.DEV IH SCH (09:00)
[2018-08-10] MEDS: LETAIRIS 10 MG PO SCH (09:00)
[2018-08-10] MEDS: METOPROLOL TARTRATE 25MG TABLET PO SCH ×2 (09:00→20:04)
[2018-08-10] MEDS: NITROFURANTOIN 100MG M/M CAPSULE PO SCH ×2 (10:32→20:06)
[2018-08-10] MEDS: APIXABAN 5 MG TABLET PO SCH ×2 (10:34→18:44)
[2018-08-10] MEDS: PREDNISONE 20MG TABLET PO SCH (10:43)
[2018-08-10] MEDS: DIGOXIN 250MCG TABLET PO SCH (18:44)
[2018-08-11] VITALS (7 sets, daily range): BP systolic 98–133; BP diastolic 40–72
[2018-08-11] MEDS: HYDROCODONE/ACETAMINOPHEN 10/325MG TABLET PO PRN ×5 (00:16→16:54)
[2018-08-11] MEDS: DILTIAZEM HCL 60MG TABLET PO SCH ×3 (04:21→15:24)
[2018-08-11] MEDS: INSULIN LISPRO 100 UNITS/ML SUBCUT SCH ×2 (05:35→12:32)
[2018-08-11] MEDS: BLOOD SUGAR DIAGNOSTIC STRIP TEST SCH ×3 (05:35→16:47)
[2018-08-11] MEDS: FUROSEMIDE 20MG TABLET PO SCH ×2 (05:55→16:54)
[2018-08-11] MEDS: SODIUM CHLORIDE 0.9% INJ 3ML FLUSH IVF SCH ×2 (06:00→13:03)
[2018-08-11] MEDS: APIXABAN 5 MG TABLET PO SCH ×2 (08:18→16:54)
[2018-08-11] MEDS: PREDNISONE 20MG TABLET PO SCH (08:21)
[2018-08-11] MEDS: UMECLIDINIUM BROMIDE 1 INH BLST.W.DEV IH SCH (08:24)
[2018-08-11] MEDS: LETAIRIS 10 MG PO SCH (08:24)
[2018-08-11] MEDS: METOPROLOL TARTRATE 25MG TABLET PO SCH (08:24)
[2018-08-11] MEDS: FLUTICASONE/VILANTEROL 200-25 BLST.W.DEV ORI SCH (08:25)
[2018-08-11] MEDS: NITROFURANTOIN 100MG M/M CAPSULE PO SCH (08:38)
[2018-08-11] MEDS: IPRATROPIUM/ALBUTEROL 0.5-3(2.5)MG/3ML NEB INH PRN (13:30)
== END 2018-08-11 17:10 | disposition home health service (06) | DRG 291 ==
LOC: ER 10:22 → 5WST 14:44 → EDBEDREQ 14:56 → ENRESERV 19:54
PROVIDERS: ADMIT Internal Medicine; ATTEND Internal Medicine
PROC: 5A09357 Assistance with Respiratory Ventilation, Less than 24 Consecutive Hours, Continuous Positive Airway Pressure (ICD-10-PCS; 2018-08-02)
PROC: 5A09357 Assistance with Respiratory Ventilation, Less than 24 Consecutive Hours, Continuous Positive Airway Pressure (ICD-10-PCS; 2018-08-03)
PROC: 5A09357 Assistance with Respiratory Ventilation, Less than 24 Consecutive Hours, Continuous Positive Airway Pressure (ICD-10-PCS; 2018-08-04)
PROC: 5A09357 Assistance with Respiratory Ventilation, Less than 24 Consecutive Hours, Continuous Positive Airway Pressure (ICD-10-PCS; 2018-08-05)
PROC: 5A09357 Assistance with Respiratory Ventilation, Less than 24 Consecutive Hours, Continuous Positive Airway Pressure (ICD-10-PCS; 2018-08-06)
PROC: 5A09457 Assistance with Respiratory Ventilation, 24-96 Consecutive Hours, Continuous Positive Airway Pressure (ICD-10-PCS; principal; 2018-08-07)
PROC: 5A09357 Assistance with Respiratory Ventilation, Less than 24 Consecutive Hours, Continuous Positive Airway Pressure (ICD-10-PCS; 2018-08-07)
PROC: 5A09357 Assistance with Respiratory Ventilation, Less than 24 Consecutive Hours, Continuous Positive Airway Pressure (ICD-10-PCS; 2018-08-11)
DX: I11.0 Hypertensive heart disease with heart failure (principal); J96.20 Acute and chronic respiratory failure, unspecified whether with hypoxia or hypercapnia; E44.0 Moderate protein-calorie malnutrition; E66.2 Morbid (severe) obesity with alveolar hypoventilation; E87.2 Acidosis; J44.1 Chronic obstructive pulmonary disease with (acute) exacerbation; I48.92 Unspecified atrial flutter; R65.10 Systemic inflammatory response syndrome (SIRS) of non-infectious origin without acute organ dysfunction; Z68.41 Body mass index [BMI] 40.0-44.9, adult; I50.33 Acute on chronic diastolic (congestive) heart failure; D50.9 Iron deficiency anemia, unspecified; E11.9 Type 2 diabetes mellitus without complications; I27.29 Other secondary pulmonary hypertension; I48.2 Chronic atrial fibrillation; F10.10 Alcohol abuse, uncomplicated; G89.29 Other chronic pain; M19.90 Unspecified osteoarthritis, unspecified site; I27.21 Secondary pulmonary arterial hypertension; M54.5 Low back pain; Z79.01 Long term (current) use of anticoagulants; Z80.1 Family history of malignant neoplasm of trachea, bronchus and lung; Z82.49 Family history of ischemic heart disease and other diseases of the circulatory system; Z83.3 Family history of diabetes mellitus; Z99.81 Dependence on supplemental oxygen; Z87.891 Personal history of nicotine dependence; Z90.710 Acquired absence of both cervix and uterus; Z79.899 Other long term (current) drug therapy; Z79.51 Long term (current) use of inhaled steroids; Z79.1 Long term (current) use of non-steroidal anti-inflammatories (NSAID)
CPT/HCPCS: 36415; 36600; 71045; 80048; 80061; 80162; 82375; 82550; 82553; 82805; 82962; 83605; 83735; 83880; 84145; 84439; 84443; 84484; 87077; 87186; 93005; 93970; 94640; 94660; 96374; 96375; 97110; 97116; 97162; 97530; 99291; J1160; J1170; J1815; J1940; J1956; J2270; J2405; J3490; J7050; J7512; J7611; J7620

== ENCOUNTER 2018-08-16 16:17 | Inpatient (IN) | payer MEDICARE, MEDICAID ==
[~2018-08-16] VITALS: Ht 162.6 cm; Wt 115.7 kg
[2018-08-16] MEDS ORDERED: FENTANYL CITRATE/PF 50MCG/ML 2ML VIAL IV ONE (16:30)
[2018-08-16] MEDS ORDERED: DILTIAZEM HCL 5MG/ML 5ML VIAL IV ONE ×2 (16:30→16:41)
[2018-08-16] MEDS ORDERED: NITROGLYCERIN OINT 1GM/INCH UDPKT TD ONE (16:30)
[2018-08-16] MEDS ORDERED: ONDANSETRON HCL 4MG/2ML INJ IV ONE ×2 (16:30→17:45)
[2018-08-16] MEDS ORDERED: DILTIAZEM HCL 125 MG in DEXT 5% WATER 100 ML IV ONE (16:45)
[2018-08-16] MEDS ORDERED: FUROSEMIDE 20MG/2ML VIAL IVP ONE (16:45)
[2018-08-16 16:54] LABS: BASOPHILS % 0.2 % (0.0-2.0); EOSINOPHILS % 0.3 % (0.0-5.0); HEMATOCRIT. 31.7 % (36.0-48.0); HEMOGLOBIN. 9.7 g/dL (12.0-16.0); LYMPHOCYTES % 7.1 % (20.0-50.0); MEAN CORPUSCULAR VOLUME 71.5 fL (81.0-99.0); MEAN PLATELET VOLUME 7.3 fl (7.4-10.4); MONOCYTES % 2.8 % (2.0-8.0); NEUTROPHILS % 89.6 % (40.0-76.0); PLATELET 410 x1000/uL (130-400); RED BLOOD CELL COUNT 4.43 mill/uL (4.2-5.4); RED CELL DISTRIBUTION WIDTH 19.6 % (11.6-14.6)
[2018-08-16 16:58] LABS: CHLORIDE 105 mEq/L (98-107); PARTIAL THROMBOPLASTIN TIME 27.3 sec (23.4-31.0)
[2018-08-16] MEDS ORDERED: DILTIAZEM HCL 125 MG in DEXT 5% WATER 100 ML IV NR (17:00)
[2018-08-16 17:20] LABS: DIGOXIN 0.4 ng/mL (0.9-2.0)
[2018-08-16] MEDS ORDERED: MORPHINE SULFATE 4 MG/ML CPJ (NOT FOR IM USE) IV ONE (17:45)
[2018-08-16] MEDS ORDERED: DIGOXIN 500MCG/2ML AMP IV ONE (17:45)
[2018-08-16 19:09] LABS: T4 FREE 1.07 ng/dL (0.76-1.46)
[2018-08-16] MEDS ORDERED: ACETAMINOPHEN 325MG TABLET PO PRN (22:15)
[2018-08-16] MEDS ORDERED: PREDNISONE 20MG TABLET PO SCH (23:31)
[2018-08-17] MEDS ORDERED: DILTIAZEM HCL 30MG TABLET PO NR (00:30)
[2018-08-17] MEDS: HYDROCODONE/ACETAMINOPHEN 10/325MG TABLET PO PRN ×5 (00:55→23:39)
[2018-08-17] MEDS ORDERED: ENOXAPARIN 150MG/ML SYR SUBCUT NR (05:00)
[2018-08-17 05:49] LABS: BASOPHILS % 0.1 % (0.0-2.0); EOSINOPHILS % 0.2 % (0.0-5.0); HEMATOCRIT. 26.9 % (36.0-48.0); HEMOGLOBIN. 8.3 g/dL (12.0-16.0); LYMPHOCYTES % 15.6 % (20.0-50.0); MEAN CORPUSCULAR HEMOGLOBIN 21.8 pg (28.0-32.0); MEAN CORPUSCULAR VOLUME 71.2 fL (81.0-99.0); MEAN PLATELET VOLUME 7.3 fl (7.4-10.4); MONOCYTES % 7.1 % (2.0-8.0); PLATELET 370 x1000/uL (130-400); RED BLOOD CELL COUNT 3.78 mill/uL (4.2-5.4); RED CELL DISTRIBUTION WIDTH 19.7 % (11.6-14.6)
[2018-08-17 05:57] LABS: CHLORIDE 106 mEq/L (98-107)
[2018-08-17] MEDS ORDERED: MORPHINE SULFATE 4 MG/ML CPJ (NOT FOR IM USE) IV ONE (10:29)
[2018-08-17 17:03] VITALS: BP 134/72
[2018-08-17 18:00] VITALS: BP 130/66
[2018-08-17] MEDS ORDERED: DEXTROSE 50% WATER 50ML SYRINGE IV PRN (18:00)
[2018-08-17] MEDS: DIGOXIN 125MCG TABLET PO SCH (18:40)
[2018-08-17] MEDS: FUROSEMIDE 20MG TABLET PO SCH (18:40)
[2018-08-17] MEDS: DILTIAZEM HCL 90MG TABLET PO SCH (19:17)
[2018-08-17 20:00] VITALS: BP 111/53
[2018-08-17] MEDS: METOPROLOL TARTRATE 50MG TABLET PO SCH (21:00)
[2018-08-17] MEDS: ENOXAPARIN 120MG/0.8ML SYR SUBCUT SCH (21:00)
[2018-08-17] MEDS: LETAIRIS (AMBRISENTAN) 10MG TABLET PO SCH (21:00)
[2018-08-17] MEDS: INSULIN LISPRO 100 UNITS/ML SUBCUT SCH (21:01)
[2018-08-17] MEDS: UMECLIDINIUM BROMIDE 1 INH BLST.W.DEV IH SCH (21:01)
[2018-08-17] MEDS: FLUTICASONE/VILANTEROL 200-25 BLST.W.DEV ORI SCH (21:01)
[2018-08-17] MEDS: BLOOD SUGAR DIAGNOSTIC STRIP TEST SCH (21:02)
[2018-08-17] MEDS: METHIMAZOLE 5MG TABLET PO SCH (21:10)
[2018-08-17 22:00] VITALS: BP 100/80
[2018-08-17] MEDS: DILTIAZEM HCL 125 MG in DEXT 5% WATER 100 ML IV PRN (23:04)
[2018-08-18] VITALS (48 sets, daily range): BP systolic 82–134; BP diastolic 34–88
[2018-08-18] MEDS: HYDROCODONE/ACETAMINOPHEN 10/325MG TABLET PO PRN ×3 (04:41→15:51)
[2018-08-18] MEDS: DILTIAZEM HCL 90MG TABLET PO SCH ×5 (06:00→21:41)
[2018-08-18 06:29] LABS: HEMATOCRIT. 28.4 % (36.0-48.0); HEMOGLOBIN. 8.8 g/dL (12.0-16.0); MEAN CORPUSCULAR HEMOGLOBIN 22.1 pg (28.0-32.0); MEAN CORPUSCULAR VOLUME 71.8 fL (81.0-99.0); MEAN PLATELET VOLUME 7.4 fl (7.4-10.4); PLATELET 392 x1000/uL (130-400); RED BLOOD CELL COUNT 3.96 mill/uL (4.2-5.4); RED CELL DISTRIBUTION WIDTH 19.4 % (11.6-14.6)
[2018-08-18] MEDS: BLOOD SUGAR DIAGNOSTIC STRIP TEST SCH ×4 (06:33→21:57)
[2018-08-18 06:34] LABS: CHLORIDE 104 mEq/L (98-107)
[2018-08-18] MEDS: INSULIN LISPRO 100 UNITS/ML SUBCUT SCH ×4 (07:00→21:00)
[2018-08-18] MEDS: PREDNISONE 20MG TABLET PO SCH (07:00)
[2018-08-18] MEDS: METFORMIN HCL 500MG TABLET PO SCH ×2 (07:00→17:16)
[2018-08-18 07:13] LABS: PLATELET ESTIMATE NORMAL
[2018-08-18] MEDS ORDERED: METFORMIN HCL 500MG TABLET PO SCH (07:20)
[2018-08-18 08:24] LABS: BG BASE EXCESS 1.6 mmol/L (-2.0-2.0); BG CARBOXYHEMOGLOBIN 0.4 % (0.5-1.5); BG FRACTION INSPIRED OXYGEN 32; BG HCO3 ACT 27.2 mmol/L (22.0-26.0); BG METHEMOGLOBIN 0.3 % (0.0-1.5); BG OXYGEN SATURATION 88.9 % (92.0-98.5); BG OXYHEMOGLOBIN 88.3 % (94.0-97.0); BG PCO2 47.9 mmHg (35.0-45.0); BG PH 7.372 (7.350-7.450); BG PO2 61.1 mmHg (75.0-100.0); BG SAMPLE SITE RIGHT RADIAL; BG TOTAL HEMOGLOBIN 9.4 g/dL (12.0-18.0); BG VENT MODE NASAL CANNULA
[2018-08-18] MEDS: METOPROLOL TARTRATE 50MG TABLET PO SCH ×2 (09:00→21:00)
[2018-08-18] MEDS: ENOXAPARIN 120MG/0.8ML SYR SUBCUT SCH ×2 (09:07→21:40)
[2018-08-18] MEDS: METHIMAZOLE 5MG TABLET PO SCH (09:07)
[2018-08-18] MEDS: LETAIRIS (AMBRISENTAN) 10MG TABLET PO SCH (09:07)
[2018-08-18] MEDS: UMECLIDINIUM BROMIDE 1 INH BLST.W.DEV IH SCH (09:08)
[2018-08-18] MEDS: FLUTICASONE/VILANTEROL 200-25 BLST.W.DEV ORI SCH (09:09)
[2018-08-18] MEDS: GLIMEPIRIDE 1MG TABLET PO SCH ×2 (09:23→17:16)
[2018-08-18] MEDS: FUROSEMIDE 20MG TABLET PO SCH ×2 (09:24→18:20)
[2018-08-18] MEDS: MORPHINE SULFATE 4 MG/ML CPJ (NOT FOR IM USE) IV PRN ×2 (12:41→20:18)
[2018-08-18] MEDS: DILTIAZEM HCL 125 MG in DEXT 5% WATER 100 ML IV PRN (13:53)
[2018-08-18] MEDS: DIGOXIN 125MCG TABLET PO SCH (17:16)
[2018-08-18] MEDS: MAGNESIUM/ALUMINUM HYDROXIDE/SIMETHICONE 30ML UDC PO PRN (21:41)
[2018-08-19] VITALS (46 sets, daily range): BP systolic 64–141; BP diastolic 27–88
[2018-08-19] MEDS: HYDROCODONE/ACETAMINOPHEN 10/325MG TABLET PO PRN ×7 (00:08→20:40)
[2018-08-19] MEDS ORDERED: ALBUTEROL (0.083%) 2.5MG/3ML NEB HHN PRN (02:00)
[2018-08-19] MEDS: ALBUTEROL (0.083%) 2.5MG/3ML NEB HHN SCH ×5 (02:23→20:46)
[2018-08-19] MEDS: FUROSEMIDE 20MG TABLET PO SCH ×2 (06:50→17:19)
[2018-08-19] MEDS: METFORMIN HCL 500MG TABLET PO SCH ×2 (06:50→17:19)
[2018-08-19] MEDS: GLIMEPIRIDE 1MG TABLET PO SCH ×2 (06:50→17:19)
[2018-08-19] MEDS: PREDNISONE 20MG TABLET PO SCH (06:51)
[2018-08-19] MEDS: DILTIAZEM HCL 90MG TABLET PO SCH ×3 (06:55→18:12)
[2018-08-19] MEDS: MORPHINE SULFATE 4 MG/ML CPJ (NOT FOR IM USE) IV PRN ×4 (08:29→23:05)
[2018-08-19] MEDS: METOPROLOL TARTRATE 50MG TABLET PO SCH ×2 (09:00→20:40)
[2018-08-19] MEDS: METHIMAZOLE 5MG TABLET PO SCH (10:05)
[2018-08-19] MEDS: FLUTICASONE/VILANTEROL 200-25 BLST.W.DEV ORI SCH (10:06)
[2018-08-19] MEDS: LETAIRIS (AMBRISENTAN) 10MG TABLET PO SCH (10:06)
[2018-08-19] MEDS: ENOXAPARIN 120MG/0.8ML SYR SUBCUT SCH (10:06)
[2018-08-19] MEDS: UMECLIDINIUM BROMIDE 1 INH BLST.W.DEV IH SCH (10:06)
[2018-08-19] MEDS: BLOOD SUGAR DIAGNOSTIC STRIP TEST SCH ×3 (11:30→20:41)
[2018-08-19] MEDS: INSULIN LISPRO 100 UNITS/ML SUBCUT SCH ×3 (12:00→20:41)
[2018-08-19] MEDS: APIXABAN 5 MG TABLET PO SCH (17:19)
[2018-08-19] MEDS: DIGOXIN 125MCG TABLET PO SCH (17:19)
[2018-08-19] MEDS: DILTIAZEM HCL 125 MG in DEXT 5% WATER 100 ML IV PRN (18:29)
[2018-08-19] MEDS: LORAZEPAM 1MG TABLET PO PRN (23:05)
[2018-08-20] VITALS (45 sets, daily range): BP systolic 90–138; BP diastolic 49–88
[2018-08-20] MEDS: ALBUTEROL (0.083%) 2.5MG/3ML NEB HHN SCH ×6 (00:56→20:16)
[2018-08-20] MEDS: HYDROCODONE/ACETAMINOPHEN 10/325MG TABLET PO PRN ×4 (01:22→21:05)
[2018-08-20] MEDS: MAGNESIUM/ALUMINUM HYDROXIDE/SIMETHICONE 30ML UDC PO PRN (04:57)
[2018-08-20] MEDS: BLOOD SUGAR DIAGNOSTIC STRIP TEST SCH ×5 (04:58→21:03)
[2018-08-20] MEDS: FUROSEMIDE 20MG TABLET PO SCH ×2 (04:58→17:46)
[2018-08-20] MEDS: DILTIAZEM HCL 90MG TABLET PO SCH ×5 (04:58→23:58)
[2018-08-20 05:34] LABS: BASOPHILS % 0.3 % (0.0-2.0); HEMATOCRIT. 28.8 % (36.0-48.0); HEMOGLOBIN. 8.9 g/dL (12.0-16.0); LYMPHOCYTES % 16.9 % (20.0-50.0); MEAN CORPUSCULAR HEMOGLOBIN 21.9 pg (28.0-32.0); MEAN CORPUSCULAR VOLUME 71.2 fL (81.0-99.0); MEAN PLATELET VOLUME 7.3 fl (7.4-10.4); MONOCYTES % 6.7 % (2.0-8.0); NEUTROPHILS % 75.1 % (40.0-76.0); PLATELET 424 x1000/uL (130-400); RED BLOOD CELL COUNT 4.04 mill/uL (4.2-5.4); RED CELL DISTRIBUTION WIDTH 19.4 % (11.6-14.6)
[2018-08-20] MEDS: MORPHINE SULFATE 4 MG/ML CPJ (NOT FOR IM USE) IV PRN ×4 (05:37→23:24)
[2018-08-20 05:39] LABS: CHLORIDE 99 mEq/L (98-107)
[2018-08-20] MEDS: INSULIN LISPRO 100 UNITS/ML SUBCUT SCH ×4 (07:00→21:00)
[2018-08-20] MEDS: METFORMIN HCL 500MG TABLET PO SCH (08:12)
[2018-08-20] MEDS: GLIMEPIRIDE 1MG TABLET PO SCH ×2 (08:12→17:01)
[2018-08-20] MEDS: METHIMAZOLE 5MG TABLET PO SCH ×2 (08:13→17:00)
[2018-08-20] MEDS: METOPROLOL TARTRATE 50MG TABLET PO SCH ×2 (08:13→21:06)
[2018-08-20] MEDS: PREDNISONE 20MG TABLET PO SCH (08:13)
[2018-08-20] MEDS: APIXABAN 5 MG TABLET PO SCH ×2 (08:13→17:01)
[2018-08-20] MEDS: LETAIRIS (AMBRISENTAN) 10MG TABLET PO SCH (08:14)
[2018-08-20] MEDS: FLUTICASONE/VILANTEROL 200-25 BLST.W.DEV ORI SCH (08:15)
[2018-08-20] MEDS: UMECLIDINIUM BROMIDE 1 INH BLST.W.DEV IH SCH (08:15)
[2018-08-20] MEDS: METFORMIN HCL 850MG TABLET PO SCH (17:00)
[2018-08-20] MEDS: DOCUSATE SODIUM 100MG CAPSULE PO PRN (17:06)
[2018-08-20] MEDS: DIGOXIN 125MCG TABLET PO SCH (17:46)
[2018-08-20] MEDS ORDERED: ONDANSETRON HCL 4MG/2ML INJ IV SCH (22:00)
[2018-08-20] MEDS: LORAZEPAM 1MG TABLET PO PRN (22:08)
[2018-08-21] VITALS (75 sets, daily range): BP systolic 81–140; BP diastolic 37–83
[2018-08-21] MEDS: ALBUTEROL (0.083%) 2.5MG/3ML NEB HHN SCH ×4 (00:14→12:02)
[2018-08-21] MEDS: DILTIAZEM HCL 125 MG in DEXT 5% WATER 100 ML IV PRN ×2 (01:19→14:15)
[2018-08-21] MEDS: HYDROCODONE/ACETAMINOPHEN 10/325MG TABLET PO PRN ×4 (02:58→23:23)
[2018-08-21] MEDS: MORPHINE SULFATE 4 MG/ML CPJ (NOT FOR IM USE) IV PRN ×3 (05:08→19:20)
[2018-08-21 05:34] LABS: CHLORIDE 98 mEq/L (98-107)
[2018-08-21 05:38] LABS: BASOPHILS % 0.2 % (0.0-2.0); HEMATOCRIT. 29.2 % (36.0-48.0); HEMOGLOBIN. 8.9 g/dL (12.0-16.0); LYMPHOCYTES % 12.2 % (20.0-50.0); MEAN CORPUSCULAR HEMOGLOBIN 21.8 pg (28.0-32.0); MEAN CORPUSCULAR VOLUME 71.2 fL (81.0-99.0); MEAN PLATELET VOLUME 7.3 fl (7.4-10.4); MONOCYTES % 6.4 % (2.0-8.0); NEUTROPHILS % 80.2 % (40.0-76.0); PLATELET 403 x1000/uL (130-400); RED BLOOD CELL COUNT 4.09 mill/uL (4.2-5.4); RED CELL DISTRIBUTION WIDTH 19.4 % (11.6-14.6)
[2018-08-21] MEDS: FUROSEMIDE 20MG TABLET PO SCH ×2 (06:16→17:29)
[2018-08-21] MEDS: INSULIN LISPRO 100 UNITS/ML SUBCUT SCH ×4 (06:16→21:33)
[2018-08-21] MEDS: BLOOD SUGAR DIAGNOSTIC STRIP TEST SCH ×4 (06:16→21:28)
[2018-08-21] MEDS: METFORMIN HCL 850MG TABLET PO SCH ×2 (06:17→17:30)
[2018-08-21] MEDS: PREDNISONE 20MG TABLET PO SCH (06:17)
[2018-08-21] MEDS: DILTIAZEM HCL 90MG TABLET PO SCH ×4 (06:17→23:22)
[2018-08-21] MEDS: GLIMEPIRIDE 1MG TABLET PO SCH ×2 (06:17→17:30)
[2018-08-21] MEDS: APIXABAN 5 MG TABLET PO SCH ×2 (08:01→17:29)
[2018-08-21] MEDS: METHIMAZOLE 5MG TABLET PO SCH ×2 (08:01→17:29)
[2018-08-21] MEDS: FLUTICASONE/VILANTEROL 200-25 BLST.W.DEV ORI SCH (08:01)
[2018-08-21] MEDS: UMECLIDINIUM BROMIDE 1 INH BLST.W.DEV IH SCH (08:01)
[2018-08-21] MEDS: LETAIRIS (AMBRISENTAN) 10MG TABLET PO SCH (08:02)
[2018-08-21] MEDS: METOPROLOL TARTRATE 50MG TABLET PO SCH ×2 (08:03→21:33)
[2018-08-21] MEDS: DOCUSATE SODIUM 100MG CAPSULE PO PRN (12:20)
[2018-08-21] MEDS ORDERED: ONDANSETRON HCL 4MG/2ML INJ IV PRN (15:30)
[2018-08-21] MEDS ORDERED: IPRATROPIUM BROMIDE (0.02%) 0.5MG/2.5ML NEB HHN PRN (15:30)
[2018-08-21] MEDS: DIGOXIN 125MCG TABLET PO SCH (17:29)
[2018-08-21] MEDS: IPRATROPIUM BROMIDE (0.02%) 0.5MG/2.5ML NEB HHN SCH (20:21)
[2018-08-22] VITALS (59 sets, daily range): BP systolic 83–131; BP diastolic 15–76
[2018-08-22] MEDS: DILTIAZEM HCL 125 MG in DEXT 5% WATER 100 ML IV PRN (00:42)
[2018-08-22] MEDS: IPRATROPIUM BROMIDE (0.02%) 0.5MG/2.5ML NEB HHN SCH ×4 (01:55→20:41)
[2018-08-22] MEDS: MORPHINE SULFATE 4 MG/ML CPJ (NOT FOR IM USE) IV PRN ×4 (02:56→18:37)
[2018-08-22] MEDS: HYDROCODONE/ACETAMINOPHEN 10/325MG TABLET PO PRN ×4 (05:52→23:04)
[2018-08-22] MEDS: BLOOD SUGAR DIAGNOSTIC STRIP TEST SCH ×4 (05:56→20:20)
[2018-08-22] MEDS: INSULIN LISPRO 100 UNITS/ML SUBCUT SCH ×5 (05:56→20:20)
[2018-08-22] MEDS: FUROSEMIDE 20MG TABLET PO SCH ×2 (06:04→18:21)
[2018-08-22] MEDS: PREDNISONE 20MG TABLET PO SCH (06:04)
[2018-08-22] MEDS: GLIMEPIRIDE 1MG TABLET PO SCH ×3 (06:04→18:23)
[2018-08-22] MEDS: DILTIAZEM HCL 90MG TABLET PO SCH ×3 (06:04→18:22)
[2018-08-22] MEDS: METFORMIN HCL 850MG TABLET PO SCH ×3 (06:04→20:17)
[2018-08-22] MEDS: METHIMAZOLE 5MG TABLET PO SCH ×2 (08:53→18:22)
[2018-08-22] MEDS: APIXABAN 5 MG TABLET PO SCH ×2 (08:54→18:22)
[2018-08-22] MEDS: DOCUSATE SODIUM 100MG CAPSULE PO PRN ×2 (08:54→18:22)
[2018-08-22] MEDS: LETAIRIS (AMBRISENTAN) 10MG TABLET PO SCH (08:54)
[2018-08-22] MEDS: UMECLIDINIUM BROMIDE 1 INH BLST.W.DEV IH SCH (08:55)
[2018-08-22] MEDS: METOPROLOL TARTRATE 50MG TABLET PO SCH ×2 (08:55→20:20)
[2018-08-22] MEDS: FLUTICASONE/VILANTEROL 200-25 BLST.W.DEV ORI SCH (08:55)
[2018-08-22] MEDS: INSULIN GLARGINE UD 100 UNITS/ML SYR SUBCUT SCH (10:30)
[2018-08-22] MEDS: DIGOXIN 125MCG TABLET PO SCH (18:22)
[2018-08-23] VITALS (14 sets, daily range): BP systolic 104–129; BP diastolic 62–82
[2018-08-23] MEDS: DILTIAZEM HCL 90MG TABLET PO SCH ×4 (00:09→17:15)
[2018-08-23] MEDS: IPRATROPIUM BROMIDE (0.02%) 0.5MG/2.5ML NEB HHN SCH ×4 (02:26→21:35)
[2018-08-23] MEDS: FUROSEMIDE 20MG TABLET PO SCH ×2 (06:04→17:15)
[2018-08-23] MEDS: HYDROCODONE/ACETAMINOPHEN 10/325MG TABLET PO PRN ×3 (06:05→18:48)
[2018-08-23] MEDS: BLOOD SUGAR DIAGNOSTIC STRIP TEST SCH ×4 (06:53→21:00)
[2018-08-23] MEDS: INSULIN LISPRO 100 UNITS/ML SUBCUT SCH ×4 (07:20→21:00)
[2018-08-23] MEDS: GLIMEPIRIDE 1MG TABLET PO SCH ×2 (07:36→17:13)
[2018-08-23] MEDS: METFORMIN HCL 850MG TABLET PO SCH ×2 (07:36→17:14)
[2018-08-23] MEDS: PREDNISONE 20MG TABLET PO SCH (07:36)
[2018-08-23] MEDS: DOCUSATE SODIUM 100MG CAPSULE PO PRN ×2 (08:07→17:13)
[2018-08-23] MEDS: METOPROLOL TARTRATE 50MG TABLET PO SCH ×2 (08:08→21:49)
[2018-08-23] MEDS: LETAIRIS (AMBRISENTAN) 10MG TABLET PO SCH (08:08)
[2018-08-23] MEDS: APIXABAN 5 MG TABLET PO SCH ×2 (08:08→17:13)
[2018-08-23] MEDS: METHIMAZOLE 5MG TABLET PO SCH ×2 (08:08→17:13)
[2018-08-23] MEDS: FLUTICASONE/VILANTEROL 200-25 BLST.W.DEV ORI SCH (08:10)
[2018-08-23] MEDS: UMECLIDINIUM BROMIDE 1 INH BLST.W.DEV IH SCH (08:22)
[2018-08-23] MEDS: MORPHINE SULFATE 4 MG/ML CPJ (NOT FOR IM USE) IV PRN ×3 (09:29→22:03)
[2018-08-23] MEDS: INSULIN GLARGINE UD 100 UNITS/ML SYR SUBCUT SCH (09:33)
[2018-08-23] MEDS ORDERED: MORPHINE SULFATE 4 MG/ML CPJ (NOT FOR IM USE) IV PRN (15:45)
[2018-08-23] MEDS ORDERED: HYDROCODONE/ACETAMINOPHEN 10/325MG TABLET PO PRN (15:45)
[2018-08-23] MEDS: DIGOXIN 125MCG TABLET PO SCH (17:15)
[2018-08-23] MEDS ORDERED: FURO40TA5 PO (19:00)
[2018-08-24] VITALS (16 sets, daily range): BP systolic 94–129; BP diastolic 46–86
[2018-08-24] MEDS: DILTIAZEM HCL 90MG TABLET PO SCH ×5 (00:18→23:44)
[2018-08-24] MEDS: IPRATROPIUM BROMIDE (0.02%) 0.5MG/2.5ML NEB HHN SCH ×4 (02:28→20:39)
[2018-08-24] MEDS: HYDROCODONE/ACETAMINOPHEN 10/325MG TABLET PO PRN ×4 (04:16→23:47)
[2018-08-24] MEDS: FUROSEMIDE 20MG TABLET PO SCH ×2 (06:08→17:23)
[2018-08-24] MEDS: BLOOD SUGAR DIAGNOSTIC STRIP TEST SCH ×4 (06:50→20:50)
[2018-08-24] MEDS: INSULIN LISPRO 100 UNITS/ML SUBCUT SCH ×4 (07:15→20:50)
[2018-08-24] MEDS: METFORMIN HCL 850MG TABLET PO SCH ×2 (07:38→17:22)
[2018-08-24] MEDS: PREDNISONE 20MG TABLET PO SCH (07:39)
[2018-08-24] MEDS: DOCUSATE SODIUM 100MG CAPSULE PO PRN ×2 (07:39→17:22)
[2018-08-24] MEDS: GLIMEPIRIDE 1MG TABLET PO SCH ×2 (07:39→17:23)
[2018-08-24] MEDS: METHIMAZOLE 5MG TABLET PO SCH ×2 (07:39→17:23)
[2018-08-24] MEDS: APIXABAN 5 MG TABLET PO SCH ×2 (07:39→17:22)
[2018-08-24] MEDS: METOPROLOL TARTRATE 50MG TABLET PO SCH ×2 (07:41→21:11)
[2018-08-24] MEDS: LETAIRIS (AMBRISENTAN) 10MG TABLET PO SCH (07:41)
[2018-08-24] MEDS: FLUTICASONE/VILANTEROL 200-25 BLST.W.DEV ORI SCH (07:43)
[2018-08-24] MEDS: MORPHINE SULFATE 4 MG/ML CPJ (NOT FOR IM USE) IV PRN (07:44)
[2018-08-24] MEDS: UMECLIDINIUM BROMIDE 1 INH BLST.W.DEV IH SCH (08:24)
[2018-08-24] MEDS: INSULIN GLARGINE UD 100 UNITS/ML SYR SUBCUT SCH (10:01)
[2018-08-24] MEDS: DIGOXIN 125MCG TABLET PO SCH (17:23)
[2018-08-25] VITALS (14 sets, daily range): BP systolic 88–117; BP diastolic 49–69
[2018-08-25] MEDS: IPRATROPIUM BROMIDE (0.02%) 0.5MG/2.5ML NEB HHN SCH (01:53)
[2018-08-25] MEDS: DILTIAZEM HCL 90MG TABLET PO SCH ×3 (05:53→17:08)
[2018-08-25] MEDS: HYDROCODONE/ACETAMINOPHEN 10/325MG TABLET PO PRN ×2 (05:55→11:27)
[2018-08-25] MEDS: FUROSEMIDE 20MG TABLET PO SCH ×2 (06:02→17:08)
[2018-08-25] MEDS: BLOOD SUGAR DIAGNOSTIC STRIP TEST SCH ×3 (06:45→16:50)
[2018-08-25 07:05] LABS: BASOPHILS % 0.1 % (0.0-2.0); EOSINOPHILS % 1.3 % (0.0-5.0); HEMATOCRIT. 26.6 % (36.0-48.0); LYMPHOCYTES % 15.8 % (20.0-50.0); MEAN CORPUSCULAR HEMOGLOBIN 21.3 pg (28.0-32.0); MEAN CORPUSCULAR VOLUME 70.5 fL (81.0-99.0); MEAN PLATELET VOLUME 7.4 fl (7.4-10.4); MONOCYTES % 5.8 % (2.0-8.0); PLATELET 402 x1000/uL (130-400); RED BLOOD CELL COUNT 3.77 mill/uL (4.2-5.4); RED CELL DISTRIBUTION WIDTH 19.5 % (11.6-14.6)
[2018-08-25] MEDS: INSULIN LISPRO 100 UNITS/ML SUBCUT SCH ×3 (07:20→17:22)
[2018-08-25 07:25] LABS: CHLORIDE 100 mEq/L (98-107)
[2018-08-25] MEDS: METHIMAZOLE 5MG TABLET PO SCH ×2 (07:32→17:08)
[2018-08-25] MEDS: APIXABAN 5 MG TABLET PO SCH ×2 (07:32→17:08)
[2018-08-25] MEDS: DOCUSATE SODIUM 100MG CAPSULE PO PRN (07:32)
[2018-08-25] MEDS: GLIMEPIRIDE 1MG TABLET PO SCH ×2 (07:32→17:08)
[2018-08-25] MEDS: METOPROLOL TARTRATE 50MG TABLET PO SCH (07:32)
[2018-08-25] MEDS: PREDNISONE 20MG TABLET PO SCH (07:32)
[2018-08-25] MEDS: METFORMIN HCL 850MG TABLET PO SCH ×2 (07:32→17:07)
[2018-08-25] MEDS: LETAIRIS (AMBRISENTAN) 10MG TABLET PO SCH (07:33)
[2018-08-25] MEDS: UMECLIDINIUM BROMIDE 1 INH BLST.W.DEV IH SCH (07:33)
[2018-08-25] MEDS: FLUTICASONE/VILANTEROL 200-25 BLST.W.DEV ORI SCH (07:33)
[2018-08-25] MEDS ORDERED: METO-539 PO (08:55)
[2018-08-25] MEDS ORDERED: DILT30TA38 PO ×2 (09:07→09:14)
[2018-08-25] MEDS ORDERED: DILT60TA35 PO (09:07)
[2018-08-25] MEDS ORDERED: DIGO125T82 PO (09:10)
[2018-08-25] MEDS ORDERED: FURO20TA4 PO (09:12)
[2018-08-25] MEDS ORDERED: TAP5 PO (09:17)
[2018-08-25] MEDS ORDERED: P20 PO (09:19)
[2018-08-25] MEDS ORDERED: METF-415 PO (09:21)
[2018-08-25] MEDS ORDERED: LINA5TAB PO (09:24)
[2018-08-25] MEDS ORDERED: HYDR-4009 PO (09:25)
[2018-08-25] MEDS ORDERED: FLUT1BLS IH (09:31)
[2018-08-25] MEDS ORDERED: UMEC62.5 INH (09:33)
[2018-08-25] MEDS: INSULIN GLARGINE UD 100 UNITS/ML SYR SUBCUT SCH (09:50)
[2018-08-25] MEDS: DIGOXIN 125MCG TABLET PO SCH (17:08)
== END 2018-08-25 18:15 | disposition home health service (06) | DRG 189 ==
LOC: ER 16:17 → EDBEDREQ 17:09 → EDBEDREQTM 17:09 → CANRESERV 21:35 → ENRESERV 21:35 → EDBEDREQSVC 08-17 02:42 → CANRESERV 08-17 16:19 → ENRESERV 08-17 16:19 → 3WST 08-17 17:00 → MICUSO 08-18 00:13 → 3WST 08-22 17:00
PROVIDERS: ADMIT Internal Medicine Pulmonary Disease; ATTEND Internal Medicine Pulmonary Disease
PROC: 5A09357 Assistance with Respiratory Ventilation, Less than 24 Consecutive Hours, Continuous Positive Airway Pressure (ICD-10-PCS; principal; 2018-08-19)
PROC: 5A09357 Assistance with Respiratory Ventilation, Less than 24 Consecutive Hours, Continuous Positive Airway Pressure (ICD-10-PCS; 2018-08-20)
PROC: 5A09357 Assistance with Respiratory Ventilation, Less than 24 Consecutive Hours, Continuous Positive Airway Pressure (ICD-10-PCS; 2018-08-21)
PROC: 5A09357 Assistance with Respiratory Ventilation, Less than 24 Consecutive Hours, Continuous Positive Airway Pressure (ICD-10-PCS; 2018-08-22)
PROC: 5A09357 Assistance with Respiratory Ventilation, Less than 24 Consecutive Hours, Continuous Positive Airway Pressure (ICD-10-PCS; 2018-08-23)
PROC: 5A09357 Assistance with Respiratory Ventilation, Less than 24 Consecutive Hours, Continuous Positive Airway Pressure (ICD-10-PCS; 2018-08-24)
PROC: 5A09357 Assistance with Respiratory Ventilation, Less than 24 Consecutive Hours, Continuous Positive Airway Pressure (ICD-10-PCS; 2018-08-25)
DX: J96.21 Acute and chronic respiratory failure with hypoxia (principal); J44.1 Chronic obstructive pulmonary disease with (acute) exacerbation; I42.9 Cardiomyopathy, unspecified; Z68.41 Body mass index [BMI] 40.0-44.9, adult; I48.2 Chronic atrial fibrillation; I27.29 Other secondary pulmonary hypertension; E11.9 Type 2 diabetes mellitus without complications; E78.5 Hyperlipidemia, unspecified; D64.9 Anemia, unspecified; D47.3 Essential (hemorrhagic) thrombocythemia; E05.90 Thyrotoxicosis, unspecified without thyrotoxic crisis or storm; G47.30 Sleep apnea, unspecified; G89.29 Other chronic pain; M54.9 Dorsalgia, unspecified; I27.81 Cor pulmonale (chronic); E66.01 Morbid (severe) obesity due to excess calories; E88.81 Metabolic syndrome and other insulin resistance; D72.829 Elevated white blood cell count, unspecified; J96.22 Acute and chronic respiratory failure with hypercapnia; I50.9 Heart failure, unspecified; I11.0 Hypertensive heart disease with heart failure; K21.9 Gastro-esophageal reflux disease without esophagitis; Z80.1 Family history of malignant neoplasm of trachea, bronchus and lung; Z82.49 Family history of ischemic heart disease and other diseases of the circulatory system; Z79.899 Other long term (current) drug therapy; Z82.5 Family history of asthma and other chronic lower respiratory diseases; Z83.3 Family history of diabetes mellitus; Z87.891 Personal history of nicotine dependence; Z90.710 Acquired absence of both cervix and uterus; Z99.81 Dependence on supplemental oxygen
CPT/HCPCS: 36415; 36600; 71045; 80048; 80162; 82375; 82805; 82962; 83520; 83735; 83880; 84439; 84443; 84481; 84484; 86376; 93005; 94640; 94660; 96374; 96375; 97116; 97162; 99291; J1160; J1650; J1815; J2270; J2405; J3010; J3490; J7060; J7512; J7611; A4315

== ENCOUNTER 2018-09-09 14:54 | Inpatient (IN) | payer MEDICARE, MEDICAID ==
[~2018-09-09] VITALS: Ht 170.2 cm; Wt 121.8 kg
[~2018-09-09 14:54] MED LIST changes: +DIGO125T82 PO; -DIGO250T81 MT; -DILT30TA3 MT; +DILT30TA38 PO; +FLUT1BLS IH; +FURO20TA4 PO; -FURO40TA5 MT; +LINA5TAB PO; +METF-415 PO; +METO-539 PO; -METO100T16 MT; +P20 PO; -SPIR25TA6 MT; +TAP5 PO; +UMEC62.5 INH
[2018-09-09] MEDS ORDERED: ONDANSETRON HCL 4MG/2ML INJ IV STA (14:58)
[2018-09-09] MEDS ORDERED: ALBUTEROL (0.083%) 2.5MG/3ML NEB HHN STA (14:58)
[2018-09-09] MEDS ORDERED: IPRATROPIUM BROMIDE (0.02%) 0.5MG/2.5ML NEB HHN STA (14:58)
[2018-09-09] MEDS ORDERED: KETOROLAC 30MG/ML VIAL IV STA (14:58)
[2018-09-09] MEDS ORDERED: FUROSEMIDE 20MG/2ML VIAL IVP ONE (15:00)
[2018-09-09 15:28] LABS: BG BASE EXCESS 5.2 mmol/L (-2.0-2.0); BG BILEVEL POS AIRWAY PRESSURE 15/5; BG CARBOXYHEMOGLOBIN 0.6 % (0.5-1.5); BG DEOXYHEMOGLOBIN 0.4 % (0.0-5.0); BG FRACTION INSPIRED OXYGEN 100; BG HCO3 ACT 29.8 mmol/L (22.0-26.0); BG METHEMOGLOBIN 0.2 % (0.0-1.5); BG OXYGEN SATURATION 99.6 % (92.0-98.5); BG OXYHEMOGLOBIN 98.8 % (94.0-97.0); BG PCO2 44.1 mmHg (35.0-45.0); BG PH 7.447 (7.350-7.450); BG PO2 462.2 mmHg (75.0-100.0); BG SAMPLE SITE RIGHT BRACHIAL; BG TOTAL HEMOGLOBIN 9.5 g/dL (12.0-18.0); BG VENT MODE MASK - BIPAP
[2018-09-09] MEDS ORDERED: MORPHINE SULFATE 10 MG/ML CPJ IV ONE (15:30)
[2018-09-09 15:31] LABS: BASOPHILS % 0.3 % (0.0-2.0); EOSINOPHILS % 0.1 % (0.0-5.0); HEMATOCRIT. 28.5 % (36.0-48.0); HEMOGLOBIN. 8.6 g/dL (12.0-16.0); LYMPHOCYTES % 8.4 % (20.0-50.0); MEAN CORPUSCULAR HEMOGLOBIN 20.8 pg (28.0-32.0); MEAN CORPUSCULAR VOLUME 69.1 fL (81.0-99.0); MEAN PLATELET VOLUME 7.1 fl (7.4-10.4); MONOCYTES % 4.8 % (2.0-8.0); NEUTROPHILS % 86.4 % (40.0-76.0); PLATELET 292 x1000/uL (130-400); RED BLOOD CELL COUNT 4.13 mill/uL (4.2-5.4); RED CELL DISTRIBUTION WIDTH 20.5 % (11.6-14.6)
[2018-09-09 15:33] LABS: CHLORIDE 104 mEq/L (98-107)
[2018-09-09] MEDS ORDERED: METHYLPREDNISOLONE SOD SUCC 125 MG/2 ML VIAL IV ONE (15:45)
[2018-09-09 17:00] LABS: PLATELET ESTIMATE NORMAL
[2018-09-09] MEDS ORDERED: LEVOFLOXACIN 750MG PREMIX 150 ML IV NR (17:15)
[2018-09-09] MEDS ORDERED: NITROGLYCERIN 0.4MG TABLET SL SL ONE (18:45)
[2018-09-09] MEDS ORDERED: DILTIAZEM HCL 120MG CAPSULE CD 24HR PO ONE (19:00)
[2018-09-09] MEDS ORDERED: DILTIAZEM HCL 5MG/ML 5ML VIAL IV ONE (19:00)
[2018-09-09] MEDS ORDERED: MORPHINE SULFATE 4 MG/ML CPJ (NOT FOR IM USE) IV ONE (19:15)
[2018-09-09] MEDS ORDERED: DILTIAZEM HCL 125 MG in DEXT 5% WATER 100 ML IV ONE ×2 (22:00→22:15)
[2018-09-09] MEDS ORDERED: IPRATROPIUM BROMIDE (0.02%) 0.5MG/2.5ML NEB HHN PRN (22:45)
[2018-09-09] MEDS ORDERED: LORAZEPAM 0.5MG TABLET PO PRN (23:00)
[2018-09-09] MEDS ORDERED: ACETAMINOPHEN 325MG TABLET PO PRN (23:00)
[2018-09-10] VITALS (7 sets, daily range): BP systolic 101–118; BP diastolic 55–69
[2018-09-10] MEDS: HYDROCODONE/ACETAMINOPHEN 10/325MG TABLET PO PRN ×6 (00:08→22:57)
[2018-09-10 06:03] LABS: HEMATOCRIT. 26.5 % (36.0-48.0); MEAN CORPUSCULAR HEMOGLOBIN 20.7 pg (28.0-32.0); MEAN PLATELET VOLUME 7.1 fl (7.4-10.4); PLATELET 249 x1000/uL (130-400); RED BLOOD CELL COUNT 3.84 mill/uL (4.2-5.4); RED CELL DISTRIBUTION WIDTH 20.9 % (11.6-14.6)
[2018-09-10 06:10] LABS: CHLORIDE 103 mEq/L (98-107)
[2018-09-10 06:18] LABS: T4 FREE 0.94 ng/dL (0.76-1.46)
[2018-09-10 06:26] LABS: BG BASE EXCESS 3.7 mmol/L (-2.0-2.0); BG BILEVEL POS AIRWAY PRESSURE 15/5; BG CARBOXYHEMOGLOBIN 0.9 % (0.5-1.5); BG FRACTION INSPIRED OXYGEN 30; BG HCO3 ACT 28.4 mmol/L (22.0-26.0); BG METHEMOGLOBIN 0.3 % (0.0-1.5); BG OXYHEMOGLOBIN 94.8 % (94.0-97.0); BG PCO2 43.4 mmHg (35.0-45.0); BG PH 7.433 (7.350-7.450); BG PO2 88.3 mmHg (75.0-100.0); BG SAMPLE SITE RIGHT RADIAL; BG TOTAL HEMOGLOBIN 8.6 g/dL (12.0-18.0); BG VENT MODE MASK - BIPAP
[2018-09-10 08:12] LABS: PLATELET ESTIMATE NORMAL
[2018-09-10] MEDS: PREDNISONE 20MG TABLET PO SCH ×2 (09:00→14:56)
[2018-09-10 09:07] LABS: BG BASE EXCESS 3.2 mmol/L (-2.0-2.0); BG CARBOXYHEMOGLOBIN 0.7 % (0.5-1.5); BG DEOXYHEMOGLOBIN 5.2 % (0.0-5.0); BG HCO3 ACT 28.2 mmol/L (22.0-26.0); BG METHEMOGLOBIN 0.3 % (0.0-1.5); BG OXYGEN SATURATION 94.7 % (92.0-98.5); BG OXYHEMOGLOBIN 93.8 % (94.0-97.0); BG PCO2 45.4 mmHg (35.0-45.0); BG PH 7.411 (7.350-7.450); BG PO2 83.4 mmHg (75.0-100.0); BG SAMPLE SITE RIGHT RADIAL; BG TOTAL HEMOGLOBIN 8.7 g/dL (12.0-18.0); BG VENT MODE NASAL CANNULA
[2018-09-10] MEDS ORDERED: DEXTROSE 50% WATER 50ML SYRINGE IV PRN (12:15)
[2018-09-10] MEDS: INSULIN LISPRO 100 UNITS/ML SUBCUT SCH ×3 (12:29→20:23)
[2018-09-10] MEDS ORDERED: NON FORMULARY PATIENT HOME MED PO SCH (12:30)
[2018-09-10] MEDS: METHIMAZOLE 5MG TABLET PO SCH ×2 (14:55→17:38)
[2018-09-10] MEDS: LINAGLIPTIN 5MG TABLET PO SCH (14:56)
[2018-09-10] MEDS: APIXABAN 5 MG TABLET PO SCH ×2 (15:29→20:18)
[2018-09-10] MEDS: DILTIAZEM HCL 90MG TABLET PO SCH ×2 (15:29→22:57)
[2018-09-10] MEDS: BLOOD SUGAR DIAGNOSTIC STRIP TEST SCH ×2 (17:17→20:04)
[2018-09-10] MEDS: METFORMIN HCL 850MG TABLET PO SCH (17:38)
[2018-09-10] MEDS: UMECLIDINIUM BROMIDE 1 INH BLST.W.DEV IH SCH (18:00)
[2018-09-10] MEDS: LETAIRIS 10 MG TABLET PO SCH (18:00)
[2018-09-10] MEDS: FLUTICASONE/VILANTEROL 200-25 BLST.W.DEV ORI SCH (18:00)
[2018-09-10] MEDS ORDERED: DIGOXIN 500MCG/2ML AMP IV SCH (18:00)
[2018-09-10] MEDS: DIGOXIN 125MCG TABLET PO SCH (18:02)
[2018-09-10] MEDS: IPRATROPIUM BROMIDE (0.02%) 0.5MG/2.5ML NEB HHN PRN ×2 (18:23→20:52)
[2018-09-10] MEDS ORDERED: AMBR10TA3 PO (18:27)
[2018-09-10] MEDS: GUAIFENESIN 200MG/10ML SUGAR FREE UDC PO PRN (20:18)
[2018-09-10] MEDS: METOPROLOL TARTRATE 25MG TABLET PO SCH (20:18)
[2018-09-11] VITALS (15 sets, daily range): BP systolic 98–134; BP diastolic 47–102
[2018-09-11] MEDS: GUAIFENESIN 200MG/10ML SUGAR FREE UDC PO PRN ×2 (05:38→14:33)
[2018-09-11] MEDS: BLOOD SUGAR DIAGNOSTIC STRIP TEST SCH ×4 (05:42→21:10)
[2018-09-11] MEDS: DILTIAZEM HCL 90MG TABLET PO SCH ×5 (05:42→23:08)
[2018-09-11] MEDS: HYDROCODONE/ACETAMINOPHEN 10/325MG TABLET PO PRN ×5 (05:43→23:09)
[2018-09-11 06:10] LABS: BASOPHILS % 0.2 % (0.0-2.0); HEMATOCRIT. 23.4 % (36.0-48.0); HEMOGLOBIN. 7.1 g/dL (12.0-16.0); LYMPHOCYTES % 15.6 % (20.0-50.0); MEAN CORPUSCULAR HEMOGLOBIN 20.7 pg (28.0-32.0); MEAN CORPUSCULAR VOLUME 68.2 fL (81.0-99.0); MONOCYTES % 7.3 % (2.0-8.0); NEUTROPHILS % 76.9 % (40.0-76.0); PLATELET 256 x1000/uL (130-400); RED BLOOD CELL COUNT 3.43 mill/uL (4.2-5.4); RED CELL DISTRIBUTION WIDTH 20.1 % (11.6-14.6)
[2018-09-11 07:28] LABS: CHLORIDE 101 mEq/L (98-107)
[2018-09-11] MEDS: LETAIRIS 10 MG TABLET PO SCH (08:30)
[2018-09-11] MEDS: METFORMIN HCL 850MG TABLET PO SCH (08:30)
[2018-09-11] MEDS: FLUTICASONE/VILANTEROL 200-25 BLST.W.DEV ORI SCH (08:30)
[2018-09-11] MEDS: UMECLIDINIUM BROMIDE 1 INH BLST.W.DEV IH SCH (08:30)
[2018-09-11] MEDS: LINAGLIPTIN 5MG TABLET PO SCH (08:30)
[2018-09-11] MEDS: PREDNISONE 20MG TABLET PO SCH (08:31)
[2018-09-11] MEDS: METHIMAZOLE 5MG TABLET PO SCH ×2 (08:31→17:22)
[2018-09-11] MEDS: APIXABAN 5 MG TABLET PO SCH (08:31)
[2018-09-11] MEDS: INSULIN LISPRO 100 UNITS/ML SUBCUT SCH ×4 (08:32→21:09)
[2018-09-11] MEDS: IPRATROPIUM BROMIDE (0.02%) 0.5MG/2.5ML NEB HHN PRN ×4 (09:41→21:20)
[2018-09-11] MEDS: METOPROLOL TARTRATE 25MG TABLET PO SCH (10:50)
[2018-09-11] MEDS ORDERED: DIGOXIN 500MCG/2ML AMP IV NR (11:15)
[2018-09-11 15:28] LABS: HEMATOCRIT 25.8 % (36.0-48.0); HEMOGLOBIN 7.7 g/dL (12.0-16.0)
[2018-09-11] MEDS: DIGOXIN 125MCG TABLET PO SCH (17:22)
[2018-09-11] MEDS: GUAIFENESIN/DM 600MG/30MG ER TAB 12HR PO SCH (17:41)
[2018-09-11] MEDS: BENZONATATE 100MG CAPSULE PO PRN (18:33)
[2018-09-11] MEDS: METOPROLOL TARTRATE 50MG TABLET PO SCH (21:08)
[2018-09-12] VITALS (13 sets, daily range): BP systolic 100–125; BP diastolic 54–75
[2018-09-12] MEDS: DILTIAZEM HCL 90MG TABLET PO SCH ×4 (05:13→23:58)
[2018-09-12] MEDS: HYDROCODONE/ACETAMINOPHEN 10/325MG TABLET PO PRN ×5 (05:14→21:53)
[2018-09-12] MEDS: BLOOD SUGAR DIAGNOSTIC STRIP TEST SCH ×4 (06:12→20:14)
[2018-09-12 06:35] LABS: HEMATOCRIT. 26.7 % (36.0-48.0); HEMOGLOBIN. 8.2 g/dL (12.0-16.0); MEAN CORPUSCULAR HEMOGLOBIN 21.7 pg (28.0-32.0); MEAN CORPUSCULAR VOLUME 70.5 fL (81.0-99.0); MEAN PLATELET VOLUME 6.9 fl (7.4-10.4); PLATELET 255 x1000/uL (130-400); RED BLOOD CELL COUNT 3.79 mill/uL (4.2-5.4); RED CELL DISTRIBUTION WIDTH 20.7 % (11.6-14.6)
[2018-09-12] MEDS: INSULIN LISPRO 100 UNITS/ML SUBCUT SCH ×4 (07:20→20:13)
[2018-09-12] MEDS: LETAIRIS 10 MG TABLET PO SCH (08:01)
[2018-09-12] MEDS: FLUTICASONE/VILANTEROL 200-25 BLST.W.DEV ORI SCH (08:01)
[2018-09-12] MEDS: PREDNISONE 20MG TABLET PO SCH (08:02)
[2018-09-12] MEDS: LINAGLIPTIN 5MG TABLET PO SCH (08:02)
[2018-09-12] MEDS: METHIMAZOLE 5MG TABLET PO SCH ×2 (08:03→17:59)
[2018-09-12] MEDS: METFORMIN HCL 850MG TABLET PO SCH (08:03)
[2018-09-12] MEDS: GUAIFENESIN/DM 600MG/30MG ER TAB 12HR PO SCH ×2 (08:03→20:11)
[2018-09-12] MEDS: METOPROLOL TARTRATE 50MG TABLET PO SCH ×2 (08:04→20:11)
[2018-09-12 08:06] LABS: CHLORIDE 105 mEq/L (98-107)
[2018-09-12] MEDS: UMECLIDINIUM BROMIDE 1 INH BLST.W.DEV IH SCH (08:11)
[2018-09-12] MEDS: IPRATROPIUM BROMIDE (0.02%) 0.5MG/2.5ML NEB HHN PRN ×2 (10:13→14:24)
[2018-09-12 10:28] LABS: PLATELET ESTIMATE NORMAL
[2018-09-12] MEDS: DIGOXIN 125MCG TABLET PO SCH (18:00)
[2018-09-12] MEDS ORDERED: KETOROLAC 15MG/ML VIAL IV PRN (20:00)
[2018-09-13] VITALS (12 sets, daily range): BP systolic 103–147; BP diastolic 45–72
[2018-09-13] MEDS: IPRATROPIUM BROMIDE (0.02%) 0.5MG/2.5ML NEB HHN PRN ×5 (00:29→20:47)
[2018-09-13] MEDS: BLOOD SUGAR DIAGNOSTIC STRIP TEST SCH ×4 (05:52→21:37)
[2018-09-13] MEDS: DILTIAZEM HCL 90MG TABLET PO SCH ×3 (05:53→17:46)
[2018-09-13] MEDS: HYDROCODONE/ACETAMINOPHEN 10/325MG TABLET PO PRN ×4 (05:54→21:16)
[2018-09-13 06:21] LABS: HEMATOCRIT. 26.4 % (36.0-48.0); MEAN CORPUSCULAR HEMOGLOBIN 21.6 pg (28.0-32.0); MEAN CORPUSCULAR VOLUME 71.1 fL (81.0-99.0); MEAN PLATELET VOLUME 7.4 fl (7.4-10.4); PLATELET 242 x1000/uL (130-400); RED BLOOD CELL COUNT 3.71 mill/uL (4.2-5.4)
[2018-09-13 06:41] LABS: CHLORIDE 103 mEq/L (98-107)
[2018-09-13 07:28] LABS: DIGOXIN 0.9 ng/mL (0.9-2.0)
[2018-09-13] MEDS: LETAIRIS 10 MG TABLET PO SCH (08:12)
[2018-09-13] MEDS: BENZONATATE 100MG CAPSULE PO PRN ×2 (08:12→17:43)
[2018-09-13] MEDS: LINAGLIPTIN 5MG TABLET PO SCH (08:12)
[2018-09-13] MEDS: FLUTICASONE/VILANTEROL 200-25 BLST.W.DEV ORI SCH (08:12)
[2018-09-13] MEDS: METFORMIN HCL 850MG TABLET PO SCH (08:12)
[2018-09-13] MEDS: UMECLIDINIUM BROMIDE 1 INH BLST.W.DEV IH SCH (08:12)
[2018-09-13] MEDS: PREDNISONE 20MG TABLET PO SCH (08:13)
[2018-09-13] MEDS: GUAIFENESIN/DM 600MG/30MG ER TAB 12HR PO SCH ×2 (08:13→21:17)
[2018-09-13] MEDS: METHIMAZOLE 5MG TABLET PO SCH ×2 (08:13→17:43)
[2018-09-13] MEDS: METOPROLOL TARTRATE 50MG TABLET PO SCH ×2 (08:15→21:18)
[2018-09-13] MEDS: INSULIN LISPRO 100 UNITS/ML SUBCUT SCH ×4 (08:17→23:01)
[2018-09-13 14:11] LABS: PLATELET ESTIMATE NORMAL
[2018-09-13] MEDS: DIGOXIN 125MCG TABLET PO SCH (17:43)
[2018-09-13] MEDS: DOCUSATE SODIUM 100MG CAPSULE PO PRN (17:43)
[2018-09-14] VITALS (9 sets, daily range): BP systolic 90–157; BP diastolic 48–92
[2018-09-14] MEDS: DILTIAZEM HCL 90MG TABLET PO SCH ×3 (00:30→12:19)
[2018-09-14] MEDS: IPRATROPIUM BROMIDE (0.02%) 0.5MG/2.5ML NEB HHN PRN (01:00)
[2018-09-14] MEDS: HYDROCODONE/ACETAMINOPHEN 10/325MG TABLET PO PRN ×2 (03:14→12:19)
[2018-09-14] MEDS: BLOOD SUGAR DIAGNOSTIC STRIP TEST SCH ×2 (07:34→11:23)
[2018-09-14] MEDS: FLUTICASONE/VILANTEROL 200-25 BLST.W.DEV ORI SCH (08:04)
[2018-09-14] MEDS: UMECLIDINIUM BROMIDE 1 INH BLST.W.DEV IH SCH (08:04)
[2018-09-14] MEDS: METOPROLOL TARTRATE 50MG TABLET PO SCH (08:05)
[2018-09-14] MEDS: BENZONATATE 100MG CAPSULE PO PRN (08:06)
[2018-09-14] MEDS: METFORMIN HCL 850MG TABLET PO SCH (08:06)
[2018-09-14] MEDS: GUAIFENESIN/DM 600MG/30MG ER TAB 12HR PO SCH (08:07)
[2018-09-14] MEDS: LETAIRIS 10 MG TABLET PO SCH (08:07)
[2018-09-14] MEDS: METHIMAZOLE 5MG TABLET PO SCH (08:07)
[2018-09-14] MEDS: LINAGLIPTIN 5MG TABLET PO SCH (08:07)
[2018-09-14] MEDS: PREDNISONE 20MG TABLET PO SCH (08:07)
[2018-09-14] MEDS: INSULIN LISPRO 100 UNITS/ML SUBCUT SCH ×2 (08:08→11:23)
[2018-09-14] MEDS ORDERED: APIXABAN 5 MG TABLET PO SCH (12:00)
[2018-09-14] MEDS: DOCUSATE SODIUM 100MG CAPSULE PO PRN (12:19)
== END 2018-09-14 14:26 | disposition home or self-care (01) | DRG 291 ==
LOC: ER 15:04 → 3WST 17:34 → EDBEDREQTM 17:36 → EDBEDREQSVC 17:36 → EDBEDREQ 17:36 → ENRESERV 09-10 10:54
PROVIDERS: ADMIT Internal Medicine Pulmonary Disease; ATTEND Internal Medicine Pulmonary Disease
PROC: 5A09457 Assistance with Respiratory Ventilation, 24-96 Consecutive Hours, Continuous Positive Airway Pressure (ICD-10-PCS; principal; 2018-09-09)
PROC: 30233N1 Transfusion of Nonautologous Red Blood Cells into Peripheral Vein, Percutaneous Approach (ICD-10-PCS; 2018-09-11)
PROC: 5A09357 Assistance with Respiratory Ventilation, Less than 24 Consecutive Hours, Continuous Positive Airway Pressure (ICD-10-PCS; 2018-09-12)
PROC: 5A09357 Assistance with Respiratory Ventilation, Less than 24 Consecutive Hours, Continuous Positive Airway Pressure (ICD-10-PCS; 2018-09-13)
PROC: 5A09357 Assistance with Respiratory Ventilation, Less than 24 Consecutive Hours, Continuous Positive Airway Pressure (ICD-10-PCS; 2018-09-14)
DX: I11.0 Hypertensive heart disease with heart failure (principal); J96.21 Acute and chronic respiratory failure with hypoxia; J96.22 Acute and chronic respiratory failure with hypercapnia; J44.1 Chronic obstructive pulmonary disease with (acute) exacerbation; Z68.41 Body mass index [BMI] 40.0-44.9, adult; F11.20 Opioid dependence, uncomplicated; I50.43 Acute on chronic combined systolic (congestive) and diastolic (congestive) heart failure; I42.9 Cardiomyopathy, unspecified; I27.29 Other secondary pulmonary hypertension; G47.30 Sleep apnea, unspecified; D64.9 Anemia, unspecified; E05.90 Thyrotoxicosis, unspecified without thyrotoxic crisis or storm; G47.33 Obstructive sleep apnea (adult) (pediatric); G89.29 Other chronic pain; M54.5 Low back pain; E11.9 Type 2 diabetes mellitus without complications; I48.2 Chronic atrial fibrillation; E66.01 Morbid (severe) obesity due to excess calories; E88.81 Metabolic syndrome and other insulin resistance; E07.81 Sick-euthyroid syndrome; Z79.01 Long term (current) use of anticoagulants; Z80.1 Family history of malignant neoplasm of trachea, bronchus and lung; Z82.49 Family history of ischemic heart disease and other diseases of the circulatory system; Z87.891 Personal history of nicotine dependence; Z90.710 Acquired absence of both cervix and uterus; Z99.81 Dependence on supplemental oxygen; Z83.3 Family history of diabetes mellitus; Z79.84 Long term (current) use of oral hypoglycemic drugs
CPT/HCPCS: 36415; 36600; 71045; 80048; 80162; 82375; 82805; 82962; 83605; 83735; 83880; 84439; 84443; 84481; 84484; 85014; 85018; 86850; 86900; 86920; 93005; 94640; 94660; 96374; 97162; 99285; J1160; J1815; J1885; J1940; J1956; J2270; J2405; J2930; J3490; J7040; J7042; J7060; J7512; J7611; P9016; A4315

== ENCOUNTER 2018-10-05 11:20 | Inpatient (IN) | payer MEDICARE, MEDICAID ==
[~2018-10-05] VITALS: Ht 162.6 cm; Wt 120.0 kg
[~2018-10-05 11:20] MED LIST changes: +AMBR10TA3 PO
[2018-10-05] MEDS ORDERED: HYDROCODONE/ACETAMINOPHEN 5/325MG TABLET PO ONE (12:30)
[2018-10-05] MEDS ORDERED: ALBUTEROL (0.083%) 2.5MG/3ML NEB HHN ONE ×2 (12:30→17:30)
[2018-10-05 13:01] LABS: HEMATOCRIT. 30.1 % (36.0-48.0); HEMOGLOBIN. 9.2 g/dL (12.0-16.0); MEAN CORPUSCULAR HEMOGLOBIN 21.7 pg (28.0-32.0); MEAN CORPUSCULAR VOLUME 70.7 fL (81.0-99.0); MEAN PLATELET VOLUME 6.9 fl (7.4-10.4); PLATELET 386 x1000/uL (130-400); RED BLOOD CELL COUNT 4.26 mill/uL (4.2-5.4); RED CELL DISTRIBUTION WIDTH 23.3 % (11.6-14.6)
[2018-10-05 13:05] LABS: CHLORIDE 98 mEq/L (98-107)
[2018-10-05 13:10] LABS: INR 1.1; PROTHROMBIN TIME 10.9 sec (9.6-11.0)
[2018-10-05 13:22] LABS: NUCLEATED RED BLOOD CELLS 1 /100 WBC
[2018-10-05 13:23] LABS: PLATELET ESTIMATE NORMAL
[2018-10-05] MEDS ORDERED: METHYLPREDNISOLONE SOD SUCC 125 MG/2 ML VIAL IV ONE (13:45)
[2018-10-05] MEDS ORDERED: HYDR-4001 PO (14:33)
[2018-10-05] MEDS ORDERED: AMBR5TAB3 MT (14:33)
[2018-10-05] MEDS ORDERED: APIX5TAB MT (14:33)
[2018-10-05] MEDS ORDERED: MORPHINE SULFATE 4 MG/ML CPJ (NOT FOR IM USE) IV ONE ×2 (15:00→19:45)
[2018-10-05] MEDS: HYDROCODONE/ACETAMINOPHEN 10/325MG TABLET PO PRN ×2 (16:31→22:30)
[2018-10-05] MEDS ORDERED: POTASSIUM CHLORIDE 20MEQ TABLET SR PO SCH (17:15)
[2018-10-06] VITALS (11 sets, daily range): BP systolic 99–123; BP diastolic 39–74
[2018-10-06] MEDS: HYDROCODONE/ACETAMINOPHEN 10/325MG TABLET PO PRN ×4 (07:02→19:59)
[2018-10-06 07:21] LABS: BG BASE EXCESS 5.7 mmol/L (-2.0-2.0); BG BILEVEL POS AIRWAY PRESSURE 15/5; BG CARBOXYHEMOGLOBIN 0.1 % (0.5-1.5); BG DEOXYHEMOGLOBIN 2.7 % (0.0-5.0); BG FRACTION INSPIRED OXYGEN 40; BG HCO3 ACT 30.4 mmol/L (22.0-26.0); BG METHEMOGLOBIN 0.3 % (0.0-1.5); BG OXYGEN SATURATION 97.3 % (92.0-98.5); BG OXYHEMOGLOBIN 96.9 % (94.0-97.0); BG PCO2 44.7 mmHg (35.0-45.0); BG PO2 104.4 mmHg (75.0-100.0); BG SAMPLE SITE RIGHT RADIAL; BG TOTAL HEMOGLOBIN 9.9 g/dL (12.0-18.0); BG VENT MODE MASK - BIPAP; BG VENT RATE 16 set
[2018-10-06] MEDS ORDERED: METHIMAZOLE 5MG TABLET PO SCH (09:00)
[2018-10-06] MEDS: APIXABAN 5 MG TABLET PO SCH ×2 (09:21→17:49)
[2018-10-06] MEDS: PREDNISONE 20MG TABLET PO SCH (09:21)
[2018-10-06] MEDS: LINAGLIPTIN 5MG TABLET PO SCH (09:23)
[2018-10-06] MEDS: FUROSEMIDE 20MG TABLET PO SCH (09:23)
[2018-10-06] MEDS: METFORMIN HCL 850MG TABLET PO SCH (09:23)
[2018-10-06] MEDS: IPRATROPIUM/ALBUTEROL 0.5-3(2.5)MG/3ML NEB HHN SCH ×4 (10:36→20:04)
[2018-10-06] MEDS ORDERED: ALBU18HF2 IH (17:01)
[2018-10-06] MEDS ORDERED: HYDR-4009 MT (17:43)
[2018-10-06] MEDS ORDERED: IPRA3AMP31 NEB (17:43)
[2018-10-06] MEDS: AMBRISENTAN 10 MG PO SCH (17:49)
[2018-10-06] MEDS: FLUTICASONE/VILANTEROL 200-25 BLST.W.DEV ORI SCH (17:50)
[2018-10-06] MEDS: UMECLIDINIUM BROMIDE 1 INH BLST.W.DEV IH SCH (17:50)
[2018-10-07] VITALS (14 sets, daily range): BP systolic 106–147; BP diastolic 55–117
[2018-10-07] MEDS: IPRATROPIUM BROMIDE (0.02%) 0.5MG/2.5ML NEB HHN PRN (00:23)
[2018-10-07] MEDS: HYDROCODONE/ACETAMINOPHEN 10/325MG TABLET PO PRN ×6 (01:45→22:26)
[2018-10-07] MEDS: IPRATROPIUM/ALBUTEROL 0.5-3(2.5)MG/3ML NEB HHN SCH ×5 (04:18→20:02)
[2018-10-07 06:58] LABS: BASOPHILS % 0.2 % (0.0-2.0); EOSINOPHILS % 0.2 % (0.0-5.0); HEMATOCRIT. 25.3 % (36.0-48.0); HEMOGLOBIN. 7.8 g/dL (12.0-16.0); LYMPHOCYTES % 15.4 % (20.0-50.0); MEAN CORPUSCULAR HEMOGLOBIN 21.8 pg (28.0-32.0); MEAN CORPUSCULAR VOLUME 71.1 fL (81.0-99.0); MEAN PLATELET VOLUME 7.3 fl (7.4-10.4); MONOCYTES % 7.7 % (2.0-8.0); NEUTROPHILS % 76.5 % (40.0-76.0); PLATELET 392 x1000/uL (130-400); RED BLOOD CELL COUNT 3.56 mill/uL (4.2-5.4); RED CELL DISTRIBUTION WIDTH 23.3 % (11.6-14.6)
[2018-10-07 07:51] LABS: CHLORIDE 100 mEq/L (98-107)
[2018-10-07 07:58] LABS: PHOSPHORUS 4.1 mg/dL (2.5-4.9)
[2018-10-07] MEDS: AMBRISENTAN 10 MG PO SCH (09:56)
[2018-10-07] MEDS: FUROSEMIDE 20MG TABLET PO SCH (09:57)
[2018-10-07] MEDS: FLUTICASONE/VILANTEROL 200-25 BLST.W.DEV ORI SCH (09:57)
[2018-10-07] MEDS: LINAGLIPTIN 5MG TABLET PO SCH (09:57)
[2018-10-07] MEDS: PREDNISONE 20MG TABLET PO SCH (09:57)
[2018-10-07] MEDS: UMECLIDINIUM BROMIDE 1 INH BLST.W.DEV IH SCH (09:57)
[2018-10-07] MEDS: METFORMIN HCL 850MG TABLET PO SCH (09:57)
[2018-10-07] MEDS ORDERED: POTASSIUM CHLORIDE 20MEQ TABLET SR PO SCH (14:45)
[2018-10-07] MEDS: LORAZEPAM 1MG TABLET PO PRN (15:35)
[2018-10-07 17:03] LABS: HEMOGLOBIN 8.2 g/dL (12.0-16.0)
[2018-10-08] VITALS (12 sets, daily range): BP systolic 87–128; BP diastolic 55–79
[2018-10-08] MEDS: LORAZEPAM 1MG TABLET PO PRN ×2 (05:03→15:55)
[2018-10-08] MEDS: HYDROCODONE/ACETAMINOPHEN 10/325MG TABLET PO PRN ×3 (06:08→18:38)
[2018-10-08 06:43] LABS: BASOPHILS % 0.3 % (0.0-2.0); EOSINOPHILS % 0.6 % (0.0-5.0); HEMATOCRIT. 26.9 % (36.0-48.0); HEMOGLOBIN. 8.1 g/dL (12.0-16.0); MEAN CORPUSCULAR HEMOGLOBIN 21.7 pg (28.0-32.0); MEAN CORPUSCULAR VOLUME 71.9 fL (81.0-99.0); MEAN PLATELET VOLUME 7.1 fl (7.4-10.4); MONOCYTES % 6.6 % (2.0-8.0); NEUTROPHILS % 75.5 % (40.0-76.0); PLATELET 407 x1000/uL (130-400); RED BLOOD CELL COUNT 3.74 mill/uL (4.2-5.4); RED CELL DISTRIBUTION WIDTH 22.7 % (11.6-14.6)
[2018-10-08 07:53] LABS: CHLORIDE 102 mEq/L (98-107)
[2018-10-08] MEDS: AMBRISENTAN 10 MG PO SCH (08:32)
[2018-10-08] MEDS: FLUTICASONE/VILANTEROL 200-25 BLST.W.DEV ORI SCH (08:32)
[2018-10-08] MEDS: UMECLIDINIUM BROMIDE 1 INH BLST.W.DEV IH SCH (08:33)
[2018-10-08] MEDS: PREDNISONE 20MG TABLET PO SCH (08:33)
[2018-10-08] MEDS: POTASSIUM CHLORIDE 20MEQ TABLET SR PO SCH (08:34)
[2018-10-08] MEDS: METFORMIN HCL 850MG TABLET PO SCH (08:34)
[2018-10-08] MEDS: FUROSEMIDE 20MG TABLET PO SCH (08:34)
[2018-10-08] MEDS: LINAGLIPTIN 5MG TABLET PO SCH (08:34)
[2018-10-08 09:22] LABS: BG BASE EXCESS 5.3 mmol/L (-2.0-2.0); BG CARBOXYHEMOGLOBIN 0.4 % (0.5-1.5); BG DEOXYHEMOGLOBIN 6.7 % (0.0-5.0); BG FRACTION INSPIRED OXYGEN 32; BG HCO3 ACT 30.5 mmol/L (22.0-26.0); BG METHEMOGLOBIN 0.3 % (0.0-1.5); BG OXYGEN SATURATION 93.3 % (92.0-98.5); BG OXYHEMOGLOBIN 92.6 % (94.0-97.0); BG PCO2 48.7 mmHg (35.0-45.0); BG PH 7.415 (7.350-7.450); BG PO2 69.1 mmHg (75.0-100.0); BG SAMPLE SITE RIGHT RADIAL; BG TOTAL HEMOGLOBIN 9.2 g/dL (12.0-18.0); BG VENT MODE NASAL CANNULA
[2018-10-08 09:54] LABS: PLATELET ESTIMATE SLIGHTLY INCREASED
[2018-10-08] MEDS: APIXABAN 5 MG TABLET PO SCH ×2 (12:35→20:52)
[2018-10-08] MEDS: IPRATROPIUM BROMIDE (0.02%) 0.5MG/2.5ML NEB HHN PRN ×3 (13:22→19:51)
[2018-10-09] VITALS (12 sets, daily range): BP systolic 97–157; BP diastolic 63–102
[2018-10-09] MEDS: IPRATROPIUM BROMIDE (0.02%) 0.5MG/2.5ML NEB HHN PRN ×7 (00:11→22:54)
[2018-10-09] MEDS: HYDROCODONE/ACETAMINOPHEN 10/325MG TABLET PO PRN ×6 (00:48→22:37)
[2018-10-09 06:35] LABS: HEMATOCRIT. 25.4 % (36.0-48.0); HEMOGLOBIN. 7.9 g/dL (12.0-16.0); MEAN CORPUSCULAR HEMOGLOBIN 22.2 pg (28.0-32.0); MEAN CORPUSCULAR VOLUME 71.3 fL (81.0-99.0); MEAN PLATELET VOLUME 7.3 fl (7.4-10.4); PLATELET 431 x1000/uL (130-400); RED BLOOD CELL COUNT 3.56 mill/uL (4.2-5.4); RED CELL DISTRIBUTION WIDTH 22.9 % (11.6-14.6)
[2018-10-09 07:15] LABS: CHLORIDE 102 mEq/L (98-107)
[2018-10-09] MEDS: POTASSIUM CHLORIDE 20MEQ TABLET SR PO SCH (08:07)
[2018-10-09] MEDS: APIXABAN 5 MG TABLET PO SCH ×2 (08:07→21:40)
[2018-10-09] MEDS: AMBRISENTAN 10 MG PO SCH (08:07)
[2018-10-09] MEDS: METFORMIN HCL 850MG TABLET PO SCH (08:09)
[2018-10-09] MEDS: FUROSEMIDE 20MG TABLET PO SCH (08:09)
[2018-10-09] MEDS: PREDNISONE 20MG TABLET PO SCH (08:09)
[2018-10-09] MEDS: FLUTICASONE/VILANTEROL 200-25 BLST.W.DEV ORI SCH (08:10)
[2018-10-09] MEDS: UMECLIDINIUM BROMIDE 1 INH BLST.W.DEV IH SCH (08:10)
[2018-10-09] MEDS: LINAGLIPTIN 5MG TABLET PO SCH (08:14)
[2018-10-09] MEDS: LORAZEPAM 1MG TABLET PO PRN ×2 (09:27→21:52)
[2018-10-09 10:59] LABS: PLATELET ESTIMATE SLIGHTLY INCREASED
[2018-10-10] VITALS (12 sets, daily range): BP systolic 105–133; BP diastolic 31–81
[2018-10-10] MEDS: HYDROCODONE/ACETAMINOPHEN 10/325MG TABLET PO PRN ×3 (03:22→18:45)
[2018-10-10] MEDS: LORAZEPAM 1MG TABLET PO PRN ×3 (06:25→19:55)
[2018-10-10] MEDS: AMBRISENTAN 10 MG PO SCH (08:44)
[2018-10-10] MEDS: PREDNISONE 20MG TABLET PO SCH (08:45)
[2018-10-10] MEDS: APIXABAN 5 MG TABLET PO SCH ×2 (08:45→21:35)
[2018-10-10] MEDS: METFORMIN HCL 850MG TABLET PO SCH (08:45)
[2018-10-10] MEDS: POTASSIUM CHLORIDE 20MEQ TABLET SR PO SCH (08:45)
[2018-10-10] MEDS: FUROSEMIDE 20MG TABLET PO SCH (08:45)
[2018-10-10] MEDS: FLUTICASONE/VILANTEROL 200-25 BLST.W.DEV ORI SCH (08:49)
[2018-10-10] MEDS: UMECLIDINIUM BROMIDE 1 INH BLST.W.DEV IH SCH (08:49)
[2018-10-10] MEDS: LINAGLIPTIN 5MG TABLET PO SCH (09:36)
[2018-10-10] MEDS: IPRATROPIUM BROMIDE (0.02%) 0.5MG/2.5ML NEB HHN PRN (21:49)
[2018-10-11] VITALS (13 sets, daily range): BP systolic 112–142; BP diastolic 58–93
[2018-10-11] MEDS: HYDROCODONE/ACETAMINOPHEN 10/325MG TABLET PO PRN ×4 (01:22→16:35)
[2018-10-11] MEDS: LORAZEPAM 1MG TABLET PO PRN ×2 (05:34→14:03)
[2018-10-11] MEDS: METFORMIN HCL 850MG TABLET PO SCH (07:47)
[2018-10-11] MEDS: PREDNISONE 20MG TABLET PO SCH (08:00)
[2018-10-11] MEDS: POTASSIUM CHLORIDE 20MEQ TABLET SR PO SCH (08:00)
[2018-10-11] MEDS: LINAGLIPTIN 5MG TABLET PO SCH (08:01)
[2018-10-11] MEDS: FUROSEMIDE 20MG TABLET PO SCH (08:01)
[2018-10-11] MEDS: APIXABAN 5 MG TABLET PO SCH ×2 (08:01→21:00)
[2018-10-11] MEDS: FLUTICASONE/VILANTEROL 200-25 BLST.W.DEV ORI SCH (08:02)
[2018-10-11] MEDS: UMECLIDINIUM BROMIDE 1 INH BLST.W.DEV IH SCH (08:02)
[2018-10-11] MEDS: AMBRISENTAN 10 MG PO SCH (08:02)
[2018-10-11] MEDS: IPRATROPIUM BROMIDE (0.02%) 0.5MG/2.5ML NEB HHN PRN ×2 (11:18→15:33)
== END 2018-10-11 21:47 | disposition home health service (06) | DRG 189 ==
LOC: ER 11:20 → 5EST 14:57 → EDBEDREQ 15:00 → EDBEDREQTM 15:00 → EDBEDREQSVC 19:48 → EDBEDREQTM 19:48 → EDBEDREQ 19:48 → ENRESERV 23:00 → 5EST 10-10 09:21
PROVIDERS: ADMIT Internal Medicine Pulmonary Disease; ATTEND Internal Medicine Pulmonary Disease
PROC: 5A09357 Assistance with Respiratory Ventilation, Less than 24 Consecutive Hours, Continuous Positive Airway Pressure (ICD-10-PCS; principal; 2018-10-05)
PROC: 5A09357 Assistance with Respiratory Ventilation, Less than 24 Consecutive Hours, Continuous Positive Airway Pressure (ICD-10-PCS; 2018-10-06)
PROC: 5A09357 Assistance with Respiratory Ventilation, Less than 24 Consecutive Hours, Continuous Positive Airway Pressure (ICD-10-PCS; 2018-10-07)
PROC: 5A09357 Assistance with Respiratory Ventilation, Less than 24 Consecutive Hours, Continuous Positive Airway Pressure (ICD-10-PCS; 2018-10-08)
PROC: 5A09357 Assistance with Respiratory Ventilation, Less than 24 Consecutive Hours, Continuous Positive Airway Pressure (ICD-10-PCS; 2018-10-09)
PROC: 5A09357 Assistance with Respiratory Ventilation, Less than 24 Consecutive Hours, Continuous Positive Airway Pressure (ICD-10-PCS; 2018-10-10)
PROC: 5A09357 Assistance with Respiratory Ventilation, Less than 24 Consecutive Hours, Continuous Positive Airway Pressure (ICD-10-PCS; 2018-10-11)
DX: J96.21 Acute and chronic respiratory failure with hypoxia (principal); I48.92 Unspecified atrial flutter; I50.32 Chronic diastolic (congestive) heart failure; K92.2 Gastrointestinal hemorrhage, unspecified; Z68.42 Body mass index [BMI] 45.0-49.9, adult; I27.29 Other secondary pulmonary hypertension; E11.9 Type 2 diabetes mellitus without complications; J43.9 Emphysema, unspecified; E66.9 Obesity, unspecified; E87.6 Hypokalemia; G47.30 Sleep apnea, unspecified; F41.9 Anxiety disorder, unspecified; I48.2 Chronic atrial fibrillation; D50.9 Iron deficiency anemia, unspecified; I11.0 Hypertensive heart disease with heart failure; E05.90 Thyrotoxicosis, unspecified without thyrotoxic crisis or storm; I49.5 Sick sinus syndrome; M19.011 Primary osteoarthritis, right shoulder; J96.22 Acute and chronic respiratory failure with hypercapnia; T14.8XXA Other injury of unspecified body region, initial encounter; W18.39XA Other fall on same level, initial encounter; Y93.89 Activity, other specified; Y99.8 Other external cause status; Y92.009 Unspecified place in unspecified non-institutional (private) residence as the place of occurrence of the external cause; Z79.01 Long term (current) use of anticoagulants; Z80.1 Family history of malignant neoplasm of trachea, bronchus and lung; Z82.49 Family history of ischemic heart disease and other diseases of the circulatory system; Z83.3 Family history of diabetes mellitus; Z87.891 Personal history of nicotine dependence; Z90.710 Acquired absence of both cervix and uterus; Z95.0 Presence of cardiac pacemaker; Z99.81 Dependence on supplemental oxygen; Z79.1 Long term (current) use of non-steroidal anti-inflammatories (NSAID); Z79.84 Long term (current) use of oral hypoglycemic drugs; Z79.899 Other long term (current) drug therapy; Z98.891 History of uterine scar from previous surgery
CPT/HCPCS: 36415; 36600; 71045; 73030; 73502; 80048; 82270; 82375; 82805; 82962; 83735; 83880; 84100; 84484; 85014; 85018; 93005; 94640; 94660; 96374; 97162; 97166; 97530; 99291; A6261; J2930; J7512; J7611; J7620

== ENCOUNTER 2019-03-13 09:58 | Inpatient (IN) | payer MEDICARE, MEDICAID ==
[~2019-03-13] VITALS: Ht 162.6 cm; Wt 90.7 kg
[~2019-03-13 09:58] MED LIST changes: -AMBR10TA3 PO; -DIGO125T82 PO; -DILT30TA38 PO; -HYDR-4001 PO; +HYDR-4009 MT; +IPRA3AMP31 NEB; -METO-539 PO
[2019-03-13] MEDS ORDERED: ALBUTEROL (0.083%) 2.5MG/3ML NEB HHN STA ×2 (10:15→11:37)
[2019-03-13] MEDS ORDERED: METHYLPREDNISOLONE SOD SUCC 125 MG/2 ML VIAL IV STA (10:15)
[2019-03-13] MEDS ORDERED: ASPIRIN 81MG TABLET PO ONE (10:15)
[2019-03-13] MEDS ORDERED: IPRATROPIUM BROMIDE (0.02%) 0.5MG/2.5ML NEB HHN STA (10:15)
[2019-03-13] MEDS ORDERED: FUROSEMIDE 40MG/4ML VIAL IVP ONE (10:30)
[2019-03-13 10:50] LABS: CHLORIDE 102 mEq/L (98-107)
[2019-03-13 10:52] LABS: PARTIAL THROMBOPLASTIN TIME 29.9 sec (23.4-31.0); PROTHROMBIN TIME 10.6 sec (9.6-11.0)
[2019-03-13 10:53] LABS: BG BASE EXCESS -1.2 mmol/L (-2.0-2.0); BG CARBOXYHEMOGLOBIN 0.5 % (0.5-1.5); BG DEOXYHEMOGLOBIN 1.4 % (0.0-5.0); BG FRACTION INSPIRED OXYGEN 50; BG HCO3 ACT 23.8 mmol/L (22.0-26.0); BG METHEMOGLOBIN 0.3 % (0.0-1.5); BG OXYGEN SATURATION 98.6 % (92.0-98.5); BG OXYHEMOGLOBIN 97.8 % (94.0-97.0); BG PCO2 41.3 mmHg (35.0-45.0); BG PH 7.379 (7.350-7.450); BG SAMPLE SITE RIGHT RADIAL; BG TOTAL HEMOGLOBIN 7.9 g/dL (12.0-18.0)
[2019-03-13 10:53] LABS: BASOPHILS % 0.3 % (0.0-2.0); EOSINOPHILS % 0.8 % (0.0-5.0); HEMATOCRIT. 25.1 % (36.0-48.0); HEMOGLOBIN. 7.5 g/dL (12.0-16.0); LYMPHOCYTES % 12.7 % (20.0-50.0); MEAN CORPUSCULAR HEMOGLOBIN 18.9 pg (28.0-32.0); MEAN CORPUSCULAR VOLUME 63.1 fL (81.0-99.0); MEAN PLATELET VOLUME 6.9 fl (7.4-10.4); MONOCYTES % 4.4 % (2.0-8.0); NEUTROPHILS % 81.8 % (40.0-76.0); PLATELET 370 x1000/uL (130-400); RED BLOOD CELL COUNT 3.97 mill/uL (4.2-5.4); RED CELL DISTRIBUTION WIDTH 21.7 % (11.6-14.6)
[2019-03-13] MEDS ORDERED: CEFTRIAXONE 1 G PREMIX 50 ML IV ONE (11:00)
[2019-03-13] MEDS ORDERED: DOXYCYCLINE HYCLATE 100 MG/VIAL IV ONE (11:00)
[2019-03-13] MEDS ORDERED: HYDROCODONE/ACETAMINOPHEN 5/325MG TABLET PO ONE ×2 (11:45→13:30)
[2019-03-13 12:03] LABS: PLATELET ESTIMATE NORMAL
[2019-03-13] MEDS ORDERED: DOXYCYCLINE 100MG in DEXTROSE 5% WATER 100ML IV SCH (12:15)
[2019-03-13] MEDS ORDERED: HYDROCODONE/ACETAMINOPHEN 5/325MG TABLET PO PRN (19:30)
[2019-03-13] MEDS ORDERED: DOCUSATE SODIUM 100MG CAPSULE PO PRN (21:30)
[2019-03-13] MEDS ORDERED: ACETAMINOPHEN 325MG TABLET PO PRN (21:30)
[2019-03-13] MEDS ORDERED: GUAIFENESIN 200MG/10ML SUGAR FREE UDC PO PRN (21:30)
[2019-03-13] MEDS ORDERED: DEXTROSE 50% WATER 50ML SYRINGE IV PRN (22:00)
[2019-03-13] MEDS: HYDROCODONE/ACETAMINOPHEN 10/325MG TABLET PO PRN (22:26)
[2019-03-13] MEDS: IPRATROPIUM/ALBUTEROL 0.5-3(2.5)MG/3ML NEB HHN SCH (22:48)
[2019-03-13] MEDS: AZITHROMYCIN 500 MG TABLET PO SCH (23:41)
[2019-03-13] MEDS: METHYLPREDNISOLONE SOD SUCC 40 MG/ML VIAL IV SCH (23:41)
[2019-03-14] VITALS: BP 117/55
[2019-03-14] MEDS: INSULIN LISPRO 100 UNITS/ML SUBCUT SCH ×5 (00:01→22:26)
[2019-03-14 02:14] VITALS: BP 115/52
[2019-03-14 03:16] LABS: LDL CHOLESTEROL 117 mg/dL (5-100)
[2019-03-14 03:18] LABS: HDL CHOLESTEROL 42 mg/dL (40-59)
[2019-03-14] MEDS: HYDROCODONE/ACETAMINOPHEN 10/325MG TABLET PO PRN ×4 (04:47→20:08)
[2019-03-14] MEDS: IPRATROPIUM/ALBUTEROL 0.5-3(2.5)MG/3ML NEB HHN SCH ×5 (05:36→21:03)
[2019-03-14] MEDS: METHYLPREDNISOLONE SOD SUCC 40 MG/ML VIAL IV SCH ×3 (06:50→18:13)
[2019-03-14] MEDS: BLOOD SUGAR DIAGNOSTIC STRIP TEST SCH ×4 (07:40→22:08)
[2019-03-14 08:00] VITALS: BP 119/65
[2019-03-14] MEDS: SPIRONOLACTONE 25MG TABLET PO SCH (09:21)
[2019-03-14] MEDS: FUROSEMIDE 20MG TABLET PO SCH ×2 (09:21→22:08)
[2019-03-14] MEDS: LINAGLIPTIN 5MG TABLET PO SCH (09:21)
[2019-03-14] MEDS: METFORMIN HCL 850MG TABLET PO SCH ×2 (09:29→18:07)
[2019-03-14 11:10] LABS: HEMATOCRIT 24.9 % (36.0-48.0); HEMOGLOBIN 7.3 g/dL (12.0-16.0); MEAN CORPUSCULAR HEMOGLOBIN 18.6 pg (28.0-32.0); MEAN CORPUSCULAR VOLUME 63.4 fL (81.0-99.0); PLATELET 351 x1000/uL (130-400); RED BLOOD CELL COUNT 3.92 mill/uL (4.2-5.4); RED CELL DISTRIBUTION WIDTH 21.7 % (11.6-14.6)
[2019-03-14 11:25] LABS: CHLORIDE 101 mEq/L (98-107)
[2019-03-14 12:00] VITALS: BP 111/59
[2019-03-14 16:00] VITALS: BP 105/59
[2019-03-14 20:00] VITALS: BP 107/50
[2019-03-14] MEDS: AZITHROMYCIN 500 MG TABLET PO SCH (22:08)
[2019-03-15] VITALS: BP 102/56
[2019-03-15] MEDS: METHYLPREDNISOLONE SOD SUCC 40 MG/ML VIAL IV SCH ×4 (00:41→18:37)
[2019-03-15] MEDS: IPRATROPIUM/ALBUTEROL 0.5-3(2.5)MG/3ML NEB HHN SCH ×6 (01:07→20:48)
[2019-03-15 03:14] LABS: BASOPHILS % 0.3 % (0.0-2.0); HEMATOCRIT. 24.4 % (36.0-48.0); HEMOGLOBIN. 7.3 g/dL (12.0-16.0); MEAN CORPUSCULAR HEMOGLOBIN 18.9 pg (28.0-32.0); MEAN CORPUSCULAR VOLUME 63.3 fL (81.0-99.0); MEAN PLATELET VOLUME 8.6 fl (7.4-10.4); MONOCYTES % 2.6 % (2.0-8.0); NEUTROPHILS % 84.1 % (40.0-76.0); PLATELET 343 x1000/uL (130-400); RED BLOOD CELL COUNT 3.85 mill/uL (4.2-5.4); RED CELL DISTRIBUTION WIDTH 21.6 % (11.6-14.6)
[2019-03-15 03:21] LABS: CHLORIDE 104 mEq/L (98-107)
[2019-03-15 04:00] VITALS: BP 115/73
[2019-03-15] MEDS: HYDROCODONE/ACETAMINOPHEN 10/325MG TABLET PO PRN ×4 (05:10→20:32)
[2019-03-15] MEDS: BLOOD SUGAR DIAGNOSTIC STRIP TEST SCH ×4 (06:40→21:15)
[2019-03-15 08:00] VITALS: BP 111/61
[2019-03-15] MEDS: LINAGLIPTIN 5MG TABLET PO SCH (08:49)
[2019-03-15] MEDS: METFORMIN HCL 850MG TABLET PO SCH (08:49)
[2019-03-15] MEDS: FUROSEMIDE 20MG TABLET PO SCH ×2 (08:49→20:23)
[2019-03-15] MEDS: SPIRONOLACTONE 25MG TABLET PO SCH (08:50)
[2019-03-15] MEDS: INSULIN LISPRO 100 UNITS/ML SUBCUT SCH ×4 (08:51→21:23)
[2019-03-15 11:47] VITALS: BP 106/60
[2019-03-15] MEDS: APIXABAN 5 MG TABLET PO SCH ×2 (13:00→18:35)
[2019-03-15 16:00] VITALS: BP 110/65
[2019-03-15] MEDS: METFORMIN HCL 500MG TABLET PO SCH (18:35)
[2019-03-15 20:00] VITALS: BP 114/60
[2019-03-15] MEDS: AZITHROMYCIN 500 MG TABLET PO SCH (20:23)
[2019-03-15] MEDS: METHIMAZOLE 5MG TABLET PO SCH (20:23)
[2019-03-16] VITALS: BP 112/60
[2019-03-16] MEDS: METHYLPREDNISOLONE SOD SUCC 40 MG/ML VIAL IV SCH ×4 (00:31→17:53)
[2019-03-16] MEDS: IPRATROPIUM/ALBUTEROL 0.5-3(2.5)MG/3ML NEB HHN SCH ×6 (00:45→21:11)
[2019-03-16 04:00] VITALS: BP 116/72
[2019-03-16] MEDS: HYDROCODONE/ACETAMINOPHEN 10/325MG TABLET PO PRN ×5 (04:28→22:45)
[2019-03-16] MEDS: BLOOD SUGAR DIAGNOSTIC STRIP TEST SCH ×4 (05:50→21:14)
[2019-03-16] MEDS: INSULIN LISPRO 100 UNITS/ML SUBCUT SCH ×4 (08:34→21:14)
[2019-03-16] MEDS: METFORMIN HCL 500MG TABLET PO SCH ×2 (08:36→18:31)
[2019-03-16] MEDS: SPIRONOLACTONE 25MG TABLET PO SCH (08:37)
[2019-03-16] MEDS: FUROSEMIDE 20MG TABLET PO SCH ×2 (08:37→21:13)
[2019-03-16] MEDS: APIXABAN 5 MG TABLET PO SCH ×2 (08:37→18:31)
[2019-03-16 08:43] LABS: BASOPHILS % 0.2 % (0.0-2.0); HEMATOCRIT. 24.9 % (36.0-48.0); HEMOGLOBIN. 7.5 g/dL (12.0-16.0); LYMPHOCYTES % 11.4 % (20.0-50.0); MEAN CORPUSCULAR HEMOGLOBIN 18.9 pg (28.0-32.0); MEAN CORPUSCULAR VOLUME 62.9 fL (81.0-99.0); MEAN PLATELET VOLUME 7.2 fl (7.4-10.4); MONOCYTES % 4.1 % (2.0-8.0); NEUTROPHILS % 84.3 % (40.0-76.0); PLATELET 381 x1000/uL (130-400); RED BLOOD CELL COUNT 3.96 mill/uL (4.2-5.4); RED CELL DISTRIBUTION WIDTH 21.4 % (11.6-14.6)
[2019-03-16 08:47] LABS: CHLORIDE 101 mEq/L (98-107)
[2019-03-16] MEDS: METHIMAZOLE 5MG TABLET PO SCH (08:51)
[2019-03-16] MEDS: LINAGLIPTIN 5MG TABLET PO SCH (08:52)
[2019-03-16 09:03] VITALS: BP 143/99
[2019-03-16 12:14] VITALS: BP 118/58
[2019-03-16 16:10] VITALS: BP 130/65
[2019-03-16] MEDS: PREDNISONE 20MG TABLET PO SCH (18:35)
[2019-03-16 20:00] VITALS: BP 116/66
[2019-03-16] MEDS: AZITHROMYCIN 500 MG TABLET PO SCH (21:13)
[2019-03-17] VITALS: BP 102/58
[2019-03-17] MEDS: IPRATROPIUM/ALBUTEROL 0.5-3(2.5)MG/3ML NEB HHN SCH ×6 (01:52→19:57)
[2019-03-17 04:00] VITALS: BP 119/67
[2019-03-17] MEDS: HYDROCODONE/ACETAMINOPHEN 10/325MG TABLET PO PRN ×3 (05:55→16:49)
[2019-03-17] MEDS: BLOOD SUGAR DIAGNOSTIC STRIP TEST SCH ×4 (07:40→20:31)
[2019-03-17] MEDS: METFORMIN HCL 500MG TABLET PO SCH ×2 (09:30→16:48)
[2019-03-17] MEDS: PREDNISONE 20MG TABLET PO SCH (09:30)
[2019-03-17] MEDS: LINAGLIPTIN 5MG TABLET PO SCH ×2 (09:31→09:33)
[2019-03-17] MEDS: SPIRONOLACTONE 25MG TABLET PO SCH (09:31)
[2019-03-17] MEDS: FUROSEMIDE 20MG TABLET PO SCH ×2 (09:31→20:08)
[2019-03-17] MEDS: INSULIN LISPRO 100 UNITS/ML SUBCUT SCH ×4 (09:32→20:28)
[2019-03-17 09:33] VITALS: BP 125/79
[2019-03-17] MEDS: APIXABAN 5 MG TABLET PO SCH ×2 (10:20→16:48)
[2019-03-17] MEDS: METHIMAZOLE 5MG TABLET PO SCH (10:24)
[2019-03-17 12:21] VITALS: BP 139/83
[2019-03-17 15:45] VITALS: BP 107/62
[2019-03-17] MEDS ORDERED: FERR325T6 PO (19:23)
[2019-03-17] MEDS ORDERED: DILT30TA38 PO (19:23)
[2019-03-17] MEDS ORDERED: OMEP1CAP4 PO (19:23)
[2019-03-17] MEDS ORDERED: PIOG30TA27 PO (19:23)
[2019-03-17] MEDS ORDERED: METF-416 PO (19:36)
[2019-03-17] MEDS ORDERED: ASPI-1158 PO (19:36)
[2019-03-17] MEDS ORDERED: RISP2 PO (19:36)
[2019-03-17] MEDS ORDERED: CLOP75TA4 PO (19:36)
[2019-03-17 20:00] VITALS: BP 114/75
[2019-03-17] MEDS: AZITHROMYCIN 500 MG TABLET PO SCH (20:08)
[2019-03-18] VITALS: BP 111/59
[2019-03-18] MEDS: HYDROCODONE/ACETAMINOPHEN 10/325MG TABLET PO PRN ×4 (00:32→18:00)
[2019-03-18] MEDS: IPRATROPIUM BROMIDE (0.02%) 0.5MG/2.5ML NEB HHN PRN ×6 (00:36→17:11)
[2019-03-18 04:00] VITALS: BP 127/83
[2019-03-18] MEDS: BLOOD SUGAR DIAGNOSTIC STRIP TEST SCH ×4 (07:40→20:31)
[2019-03-18 08:00] VITALS: BP 137/87
[2019-03-18] MEDS: INSULIN LISPRO 100 UNITS/ML SUBCUT SCH ×4 (08:10→20:31)
[2019-03-18] MEDS: FUROSEMIDE 20MG TABLET PO SCH ×2 (08:55→20:30)
[2019-03-18] MEDS: METFORMIN HCL 500MG TABLET PO SCH ×2 (08:55→18:00)
[2019-03-18] MEDS: PREDNISONE 20MG TABLET PO SCH (08:55)
[2019-03-18] MEDS: APIXABAN 5 MG TABLET PO SCH ×2 (08:55→18:00)
[2019-03-18] MEDS: METHIMAZOLE 5MG TABLET PO SCH (08:55)
[2019-03-18] MEDS: SPIRONOLACTONE 25MG TABLET PO SCH (08:55)
[2019-03-18] MEDS ORDERED: DEXTROSE 50% WATER 50ML SYRINGE IV PRN (10:00)
[2019-03-18] MEDS: FLUTICASONE/VILANTEROL 200-25 BLST.W.DEV ORI SCH (10:50)
[2019-03-18] MEDS: UMECLIDINIUM BROMIDE 1 INH BLST.W.DEV IH SCH (10:50)
[2019-03-18 12:00] VITALS: BP 120/69
[2019-03-18 16:00] VITALS: BP 104/60
[2019-03-18 20:19] VITALS: BP 117/73
[2019-03-19] VITALS: BP 112/65
[2019-03-19] MEDS: HYDROCODONE/ACETAMINOPHEN 10/325MG TABLET PO PRN ×5 (01:14→21:27)
[2019-03-19 04:00] VITALS: BP 97/54
[2019-03-19] MEDS: BLOOD SUGAR DIAGNOSTIC STRIP TEST SCH ×4 (06:40→20:56)
[2019-03-19 07:25] LABS: HEMATOCRIT. 26.6 % (36.0-48.0); MEAN CORPUSCULAR HEMOGLOBIN 18.8 pg (28.0-32.0); MEAN CORPUSCULAR VOLUME 62.2 fL (81.0-99.0); MEAN PLATELET VOLUME 8.4 fl (7.4-10.4); PLATELET 450 x1000/uL (130-400); RED BLOOD CELL COUNT 4.27 mill/uL (4.2-5.4); RED CELL DISTRIBUTION WIDTH 21.5 % (11.6-14.6)
[2019-03-19] MEDS: IPRATROPIUM BROMIDE (0.02%) 0.5MG/2.5ML NEB HHN PRN (07:25)
[2019-03-19 07:27] LABS: CHLORIDE 103 mEq/L (98-107)
[2019-03-19 08:00] VITALS: BP 108/67
[2019-03-19] MEDS: INSULIN LISPRO 100 UNITS/ML SUBCUT SCH ×4 (08:10→20:56)
[2019-03-19] MEDS: LINAGLIPTIN 5MG TABLET PO SCH (08:39)
[2019-03-19] MEDS: SPIRONOLACTONE 25MG TABLET PO SCH (08:39)
[2019-03-19] MEDS: FUROSEMIDE 20MG TABLET PO SCH ×2 (08:39→20:50)
[2019-03-19] MEDS: METFORMIN HCL 500MG TABLET PO SCH ×2 (08:39→17:34)
[2019-03-19] MEDS: APIXABAN 5 MG TABLET PO SCH ×2 (08:39→17:34)
[2019-03-19] MEDS: PREDNISONE 20MG TABLET PO SCH (08:39)
[2019-03-19] MEDS: UMECLIDINIUM BROMIDE 1 INH BLST.W.DEV IH SCH (08:40)
[2019-03-19] MEDS: FLUTICASONE/VILANTEROL 200-25 BLST.W.DEV ORI SCH (08:40)
[2019-03-19] MEDS: IPRATROPIUM BROMIDE (0.02%) 0.5MG/2.5ML NEB HHN SCH ×3 (11:19→20:42)
[2019-03-19 12:00] VITALS: BP 102/69
[2019-03-19] MEDS: METHIMAZOLE 5MG TABLET PO SCH (12:09)
[2019-03-19 16:00] VITALS: BP 113/65
[2019-03-19 20:00] VITALS: BP 129/75
[2019-03-20] VITALS: BP 115/69
[2019-03-20] MEDS: IPRATROPIUM BROMIDE (0.02%) 0.5MG/2.5ML NEB HHN SCH ×6 (00:51→20:37)
[2019-03-20] MEDS: HYDROCODONE/ACETAMINOPHEN 10/325MG TABLET PO PRN ×5 (03:54→22:00)
[2019-03-20 04:00] VITALS: BP 112/70
[2019-03-20] MEDS: BLOOD SUGAR DIAGNOSTIC STRIP TEST SCH ×4 (06:31→20:44)
[2019-03-20] MEDS: INSULIN LISPRO 100 UNITS/ML SUBCUT SCH ×4 (06:32→20:44)
[2019-03-20 06:55] LABS: HEMOGLOBIN. 7.8 g/dL (12.0-16.0); MEAN CORPUSCULAR HEMOGLOBIN 18.8 pg (28.0-32.0); MEAN PLATELET VOLUME 7.1 fl (7.4-10.4); PLATELET 454 x1000/uL (130-400); RED BLOOD CELL COUNT 4.13 mill/uL (4.2-5.4); RED CELL DISTRIBUTION WIDTH 21.5 % (11.6-14.6)
[2019-03-20 06:57] LABS: CHLORIDE 100 mEq/L (98-107)
[2019-03-20 07:11] LABS: NUCLEATED RED BLOOD CELLS 2 /100 WBC; PLATELET ESTIMATE INCREASED
[2019-03-20 08:00] VITALS: BP 109/61
[2019-03-20] MEDS: METFORMIN HCL 500MG TABLET PO SCH ×2 (08:29→17:22)
[2019-03-20] MEDS: METHIMAZOLE 5MG TABLET PO SCH (08:30)
[2019-03-20] MEDS: LINAGLIPTIN 5MG TABLET PO SCH (08:30)
[2019-03-20] MEDS: FUROSEMIDE 20MG TABLET PO SCH ×2 (08:30→20:42)
[2019-03-20] MEDS: SPIRONOLACTONE 25MG TABLET PO SCH (08:30)
[2019-03-20] MEDS: FLUTICASONE/VILANTEROL 200-25 BLST.W.DEV ORI SCH (08:56)
[2019-03-20] MEDS: UMECLIDINIUM BROMIDE 1 INH BLST.W.DEV IH SCH (08:57)
[2019-03-20] MEDS: APIXABAN 5 MG TABLET PO SCH ×2 (08:59→16:28)
[2019-03-20] MEDS ORDERED: PREDNISONE 10MG TABLET PO SCH (09:00)
[2019-03-20 12:00] VITALS: BP 116/51
[2019-03-20 15:23] LABS: PLATELET ESTIMATE INCREASED
[2019-03-20 16:00] VITALS: BP 114/61
[2019-03-20 20:00] VITALS: BP 121/70
[2019-03-21] VITALS: BP 115/51
[2019-03-21] MEDS: IPRATROPIUM BROMIDE (0.02%) 0.5MG/2.5ML NEB HHN SCH ×5 (00:36→16:01)
[2019-03-21] MEDS: HYDROCODONE/ACETAMINOPHEN 10/325MG TABLET PO PRN ×3 (03:30→13:07)
[2019-03-21 04:00] VITALS: BP 126/82
[2019-03-21] MEDS: BLOOD SUGAR DIAGNOSTIC STRIP TEST SCH ×2 (07:40→12:53)
[2019-03-21 08:00] VITALS: BP 124/70
[2019-03-21] MEDS: INSULIN LISPRO 100 UNITS/ML SUBCUT SCH ×2 (08:10→12:53)
[2019-03-21] MEDS: METHIMAZOLE 5MG TABLET PO SCH (08:33)
[2019-03-21] MEDS: LINAGLIPTIN 5MG TABLET PO SCH (08:33)
[2019-03-21] MEDS: METFORMIN HCL 500MG TABLET PO SCH (08:33)
[2019-03-21] MEDS: FUROSEMIDE 20MG TABLET PO SCH (08:33)
[2019-03-21] MEDS: SPIRONOLACTONE 25MG TABLET PO SCH (08:34)
[2019-03-21] MEDS: FLUTICASONE/VILANTEROL 200-25 BLST.W.DEV ORI SCH (08:41)
[2019-03-21] MEDS: UMECLIDINIUM BROMIDE 1 INH BLST.W.DEV IH SCH (08:41)
[2019-03-21] MEDS: APIXABAN 5 MG TABLET PO SCH (08:41)
[2019-03-21] MEDS ORDERED: PREDNISONE 20MG TABLET PO SCH (09:00)
[2019-03-21 12:00] VITALS: BP 110/63
[2019-03-21 14:49] VITALS: BP 110/63
== END 2019-03-21 16:48 | disposition home or self-care (01) | DRG 189 ==
LOC: ER 09:58 → 7WST 11:55 → EDBEDREQ 11:57 → ENRESERV 19:27 → 7WST 20:43
PROVIDERS: ADMIT Internal Medicine Pulmonary Disease; ATTEND Internal Medicine Pulmonary Disease
PROC: 5A09357 Assistance with Respiratory Ventilation, Less than 24 Consecutive Hours, Continuous Positive Airway Pressure (ICD-10-PCS; principal; 2019-03-13)
PROC: 5A09357 Assistance with Respiratory Ventilation, Less than 24 Consecutive Hours, Continuous Positive Airway Pressure (ICD-10-PCS; 2019-03-14)
PROC: 5A09357 Assistance with Respiratory Ventilation, Less than 24 Consecutive Hours, Continuous Positive Airway Pressure (ICD-10-PCS; 2019-03-15)
PROC: 5A09357 Assistance with Respiratory Ventilation, Less than 24 Consecutive Hours, Continuous Positive Airway Pressure (ICD-10-PCS; 2019-03-16)
PROC: 5A09357 Assistance with Respiratory Ventilation, Less than 24 Consecutive Hours, Continuous Positive Airway Pressure (ICD-10-PCS; 2019-03-17)
PROC: 5A09357 Assistance with Respiratory Ventilation, Less than 24 Consecutive Hours, Continuous Positive Airway Pressure (ICD-10-PCS; 2019-03-18)
PROC: 5A09357 Assistance with Respiratory Ventilation, Less than 24 Consecutive Hours, Continuous Positive Airway Pressure (ICD-10-PCS; 2019-03-19)
PROC: 5A09357 Assistance with Respiratory Ventilation, Less than 24 Consecutive Hours, Continuous Positive Airway Pressure (ICD-10-PCS; 2019-03-20)
PROC: 5A09357 Assistance with Respiratory Ventilation, Less than 24 Consecutive Hours, Continuous Positive Airway Pressure (ICD-10-PCS; 2019-03-21)
DX: J96.21 Acute and chronic respiratory failure with hypoxia (principal); J44.1 Chronic obstructive pulmonary disease with (acute) exacerbation; I50.32 Chronic diastolic (congestive) heart failure; E87.2 Acidosis; J96.22 Acute and chronic respiratory failure with hypercapnia; D50.9 Iron deficiency anemia, unspecified; E05.90 Thyrotoxicosis, unspecified without thyrotoxic crisis or storm; E11.9 Type 2 diabetes mellitus without complications; E87.6 Hypokalemia; F17.210 Nicotine dependence, cigarettes, uncomplicated; I11.0 Hypertensive heart disease with heart failure; E11.65 Type 2 diabetes mellitus with hyperglycemia; E66.01 Morbid (severe) obesity due to excess calories; F41.9 Anxiety disorder, unspecified; G47.33 Obstructive sleep apnea (adult) (pediatric); T38.0X5A Adverse effect of glucocorticoids and synthetic analogues, initial encounter; I48.91 Unspecified atrial fibrillation; I35.0 Nonrheumatic aortic (valve) stenosis; I27.29 Other secondary pulmonary hypertension; Z90.710 Acquired absence of both cervix and uterus; Z95.0 Presence of cardiac pacemaker; Z99.81 Dependence on supplemental oxygen; Z79.01 Long term (current) use of anticoagulants; Z79.4 Long term (current) use of insulin; Z80.1 Family history of malignant neoplasm of trachea, bronchus and lung; Z82.49 Family history of ischemic heart disease and other diseases of the circulatory system; Z83.3 Family history of diabetes mellitus; Y92.89 Other specified places as the place of occurrence of the external cause; Z68.34 Body mass index [BMI] 34.0-34.9, adult
CPT/HCPCS: 36415; 36600; 71045; 80048; 80061; 82375; 82805; 82962; 83036; 83605; 83735; 83880; 84439; 84443; 84481; 84484; 85027; 86850; 86900; 87804; 93005; 93306; 94640; 94660; 97162; 99291; J0696; J1815; J1940; J2920; J2930; J3490; J7060; J7512; J7611; J7620

== ENCOUNTER 2019-04-05 21:31 | Inpatient (IN) | payer MEDICARE, MEDICAID ==
[~2019-04-05] VITALS: Ht 165.1 cm; Wt 118.5 kg
[~2019-04-05 21:31] MED LIST changes: -AMBR10TA3 MT; -APIX5TAB MT; +ASPI-1158 PO; +CLOP75TA4 PO; +DILT30TA38 PO; +FERR325T6 PO; -FLUT1BLS IH; -FURO20TA4 PO; -HYDR-4009 MT; -IPRA3AMP31 NEB; -LINA5TAB PO; -METF-415 PO; +OMEP1CAP4 PO; -P20 PO; +PIOG30TA27 PO; +RISP2 PO; -UMEC62.5 INH
[2019-04-05] MEDS ORDERED: FUROSEMIDE 40MG/4ML VIAL IV ONE (21:45)
[2019-04-05] MEDS ORDERED: ASPIRIN 81MG TABLET PO ONE (21:45)
[2019-04-05 22:13] LABS: MEAN CORPUSCULAR HEMOGLOBIN 18.5 pg (28.0-32.0); MEAN CORPUSCULAR VOLUME 63.1 fL (81.0-99.0); MEAN PLATELET VOLUME 8.5 fl (7.4-10.4); PLATELET 263 x1000/uL (130-400); RED BLOOD CELL COUNT 3.24 mill/uL (4.2-5.4); RED CELL DISTRIBUTION WIDTH 22.4 % (11.6-14.6)
[2019-04-05 22:17] LABS: CHLORIDE 102 mEq/L (98-107)
[2019-04-05 22:20] LABS: HEMATOCRIT. 20.4 % (36.0-48.0); PROTHROMBIN TIME 10.5 sec (9.6-11.0)
[2019-04-05 22:21] LABS: ETHANOL BLOOD < 10 mg/dL
[2019-04-05 22:34] LABS: PLATELET ESTIMATE NORMAL
[2019-04-05 23:04] LABS: CLARITY URINE CLEAR (CLEAR); COLOR URINE YELLOW (YELLOW); KETONES URINE NEGATIVE (NEGATIVE); LEUKOCYTE ESTERASE URINE NEGATIVE (NEGATIVE); NITRITE URINE POSITIVE (NEGATIVE); OCCULT BLOOD URINE NEGATIVE (NEGATIVE); PH URINE 5.5 (4.5-8.0); PROTEIN URINE NEGATIVE (NEGATIVE); SPECIFIC GRAVITY URINE 1.006 (1.005-1.030); UROBILINOGEN URINE 0.2 E.U./dL (0.2-1.0)
[2019-04-05] MEDS ORDERED: MORPHINE SULFATE 4 MG/ML CPJ (NOT FOR IM USE) IV ONE (23:15)
[2019-04-05] MEDS ORDERED: ONDANSETRON HCL 4MG/2ML INJ IV ONE (23:15)
[2019-04-05 23:18] LABS: *AMPHETAMINES SCREEN URINE NEGATIVE (NEGATIVE); *BARBITURATES SCREEN URINE NEGATIVE (NEGATIVE); *BENZODIAZEPINES SCREEN URINE NEGATIVE (NEGATIVE); *COCAINE SCREEN URINE NEGATIVE (NEGATIVE); METHADONE URINE SCREEN NEGATIVE (NEGATIVE)
[2019-04-05 23:19] LABS: CANNABINOID URINE SCREEN NEGATIVE (NEGATIVE); OPIATES URINE SCREEN PRESUMTIVE POSITIVE (NEGATIVE); PHENCYCLIDINE URINE SCREEN NEGATIVE (NEGATIVE)
[2019-04-06] VITALS (15 sets, daily range): BP systolic 100–140; BP diastolic 39–80
[2019-04-06 00:40] LABS: BG BASE EXCESS 3.1 mmol/L (-2.0-2.0); BG BILEVEL POS AIRWAY PRESSURE S/T:16/5; BG CARBOXYHEMOGLOBIN 0.6 % (0.5-1.5); BG DEOXYHEMOGLOBIN 1.6 % (0.0-5.0); BG FRACTION INSPIRED OXYGEN 50; BG HCO3 ACT 28.6 mmol/L (22.0-26.0); BG METHEMOGLOBIN 0.3 % (0.0-1.5); BG OXYGEN SATURATION 98.4 % (92.0-98.5); BG OXYHEMOGLOBIN 97.5 % (94.0-97.0); BG PCO2 49.7 mmHg (35.0-45.0); BG PH 7.378 (7.350-7.450); BG PO2 134.4 mmHg (75.0-100.0); BG SAMPLE SITE RIGHT RADIAL; BG TOTAL HEMOGLOBIN 6.6 g/dL (12.0-18.0); BG VENT MODE MASK - BIPAP; BG VENT RATE 14 set
[2019-04-06] MEDS ORDERED: LINA5TAB PO ×2 (03:04)
[2019-04-06] MEDS ORDERED: SPIR25TA6 PO (03:04)
[2019-04-06] MEDS ORDERED: APIX5TAB PO (03:04)
[2019-04-06] MEDS ORDERED: BRIN8DRO EACHEYE (03:04)
[2019-04-06] MEDS ORDERED: METF-815 PO (03:04)
[2019-04-06] MEDS ORDERED: UMEC62.5 IH (03:04)
[2019-04-06] MEDS ORDERED: ESCI20TA36 PO (03:04)
[2019-04-06] MEDS ORDERED: AMBR10TA3 PO (03:04)
[2019-04-06] MEDS ORDERED: POTA-79 PO (03:04)
[2019-04-06] MEDS ORDERED: PRED10TA23 PO (03:04)
[2019-04-06] MEDS ORDERED: FLUT1DIS6 INH (03:04)
[2019-04-06] MEDS ORDERED: FURO40TA5 PO (03:04)
[2019-04-06] MEDS ORDERED: AZOPT EACHEYE (03:04)
[2019-04-06] MEDS ORDERED: TRAV2.5D EACHEYE (03:04)
[2019-04-06] MEDS ORDERED: DEXTROSE 50% WATER 50ML SYRINGE IV PRN (04:30)
[2019-04-06] MEDS: HYDROCODONE/ACETAMINOPHEN 10/325MG TABLET PO PRN ×3 (05:00→17:56)
[2019-04-06] MEDS ORDERED: NON FORMULARY PATIENT HOME MED XX SCH ×3 (05:45)
[2019-04-06] MEDS: OMEPRAZOLE 20MG CAPSULE EXTENDED RELEASE PO SCH (06:35)
[2019-04-06] MEDS: BLOOD SUGAR DIAGNOSTIC STRIP TEST SCH ×4 (06:36→21:37)
[2019-04-06] MEDS: INSULIN LISPRO 100 UNITS/ML SUBCUT SCH ×4 (06:43→21:38)
[2019-04-06 07:14] LABS: BG BASE EXCESS 2.1 mmol/L (-2.0-2.0); BG CARBOXYHEMOGLOBIN 2.2 % (0.5-1.5); BG DEOXYHEMOGLOBIN 11.8 % (0.0-5.0); BG HCO3 ACT 26.9 mmol/L (22.0-26.0); BG METHEMOGLOBIN 0.2 % (0.0-1.5); BG OXYGEN SATURATION 87.9 % (92.0-98.5); BG OXYHEMOGLOBIN 85.8 % (94.0-97.0); BG PCO2 42.8 mmHg (35.0-45.0); BG PH 7.416 (7.350-7.450); BG PO2 56.3 mmHg (75.0-100.0); BG SAMPLE SITE RIGHT RADIAL; BG TOTAL HEMOGLOBIN 6.9 g/dL (12.0-18.0); BG VENT MODE NASAL CANNULA
[2019-04-06] MEDS: CITALOPRAM HYDROBROMIDE 10MG TABLET PO SCH (08:12)
[2019-04-06] MEDS: METHIMAZOLE 5MG TABLET PO SCH (08:14)
[2019-04-06] MEDS: SPIRONOLACTONE 25MG TABLET PO SCH (08:15)
[2019-04-06] MEDS: FERROUS SULFATE 325MG TABLET PO SCH ×3 (08:15→16:57)
[2019-04-06] MEDS: METHYLPREDNISOLONE SOD SUCC 40 MG/ML VIAL IV SCH ×3 (08:18→21:34)
[2019-04-06] MEDS: METFORMIN HCL 500MG TABLET PO SCH ×2 (08:31→16:57)
[2019-04-06] MEDS: LINAGLIPTIN 5MG TABLET PO SCH (08:31)
[2019-04-06] MEDS ORDERED: DILTIAZEM HCL 30MG TABLET PO SCH (09:00)
[2019-04-06] MEDS ORDERED: POTASSIUM CHLORIDE 20MEQ TABLET SR PO SCH (09:00)
[2019-04-06] MEDS ORDERED: FUROSEMIDE 40MG TABLET PO SCH (09:00)
[2019-04-06] MEDS ORDERED: APIXABAN 5 MG TABLET PO SCH (09:00)
[2019-04-06] MEDS ORDERED: DILTIAZEM HCL 30MG TABLET PO NR (09:00)
[2019-04-06] MEDS ORDERED: ASPIRIN 81MG TABLET PO SCH (09:00)
[2019-04-06] MEDS ORDERED: RISPERIDONE 1MG TABLET PO SCH (09:00)
[2019-04-06] MEDS ORDERED: PIOGLITAZONE 15MG TABLET PO SCH (09:00)
[2019-04-06] MEDS: IPRATROPIUM/ALBUTEROL 0.5-3(2.5)MG/3ML NEB HHN SCH ×4 (09:24→20:39)
[2019-04-06] MEDS ORDERED: LIDOCAINE HCL/PF 1% 2ML VIAL ONE (09:26)
[2019-04-06] MEDS: DORZOLAMIDE 2% OPHTH 10 ML BOTTLE EACHEYE SCH ×2 (10:27→16:58)
[2019-04-06] MEDS ORDERED: FUROSEMIDE 40MG/4ML VIAL IVP SCH (11:00)
[2019-04-06] MEDS: DILTIAZEM HCL 60MG TABLET PO SCH ×3 (14:24→21:44)
[2019-04-06 16:57] LABS: MEAN CORPUSCULAR HEMOGLOBIN 19.4 pg (28.0-32.0); MEAN CORPUSCULAR VOLUME 64.2 fL (81.0-99.0); MEAN PLATELET VOLUME 8.5 fl (7.4-10.4); PLATELET 254 x1000/uL (130-400); RED BLOOD CELL COUNT 3.25 mill/uL (4.2-5.4); RED CELL DISTRIBUTION WIDTH 24.1 % (11.6-14.6)
[2019-04-06] MEDS: FUROSEMIDE 40MG/4ML VIAL IVP SCH (16:57)
[2019-04-06 17:00] LABS: HEMATOCRIT. 20.8 % (36.0-48.0); HEMOGLOBIN. 6.3 g/dL (12.0-16.0)
[2019-04-06 17:52] LABS: PLATELET ESTIMATE NORMAL
[2019-04-06] MEDS: LATANOPROST 0.005% OPHTH DROPS 2.5ML EACHEYE SCH (21:39)
[2019-04-07] VITALS (17 sets, daily range): BP systolic 104–142; BP diastolic 63–85
[2019-04-07] MEDS: IPRATROPIUM/ALBUTEROL 0.5-3(2.5)MG/3ML NEB HHN SCH ×3 (00:19→09:37)
[2019-04-07] MEDS: HYDROCODONE/ACETAMINOPHEN 10/325MG TABLET PO PRN ×5 (00:21→22:44)
[2019-04-07] MEDS: METHYLPREDNISOLONE SOD SUCC 40 MG/ML VIAL IV SCH ×4 (03:00→21:13)
[2019-04-07] MEDS: DILTIAZEM HCL 60MG TABLET PO SCH ×3 (06:00→21:14)
[2019-04-07] MEDS: OMEPRAZOLE 20MG CAPSULE EXTENDED RELEASE PO SCH (06:23)
[2019-04-07] MEDS: FUROSEMIDE 40MG/4ML VIAL IVP SCH ×2 (06:24→18:04)
[2019-04-07] MEDS: BLOOD SUGAR DIAGNOSTIC STRIP TEST SCH ×4 (06:25→21:25)
[2019-04-07] MEDS: METFORMIN HCL 500MG TABLET PO SCH ×2 (07:57→18:03)
[2019-04-07] MEDS: FERROUS SULFATE 325MG TABLET PO SCH ×3 (07:57→18:03)
[2019-04-07] MEDS: INSULIN LISPRO 100 UNITS/ML SUBCUT SCH ×4 (08:01→21:28)
[2019-04-07] MEDS: LINAGLIPTIN 5MG TABLET PO SCH (08:12)
[2019-04-07] MEDS: METHIMAZOLE 5MG TABLET PO SCH (08:12)
[2019-04-07] MEDS: CITALOPRAM HYDROBROMIDE 10MG TABLET PO SCH (08:12)
[2019-04-07] MEDS: SPIRONOLACTONE 25MG TABLET PO SCH (08:12)
[2019-04-07] MEDS: DORZOLAMIDE 2% OPHTH 10 ML BOTTLE EACHEYE SCH ×2 (08:16→18:07)
[2019-04-07 09:27] LABS: BASOPHILS % 0.3 % (0.0-2.0); HEMATOCRIT. 26.9 % (36.0-48.0); HEMOGLOBIN. 8.4 g/dL (12.0-16.0); LYMPHOCYTES % 11.9 % (20.0-50.0); MEAN CORPUSCULAR HEMOGLOBIN 21.3 pg (28.0-32.0); MEAN CORPUSCULAR VOLUME 68.3 fL (81.0-99.0); MEAN PLATELET VOLUME 8.6 fl (7.4-10.4); MONOCYTES % 5.2 % (2.0-8.0); NEUTROPHILS % 82.6 % (40.0-76.0); PLATELET 305 x1000/uL (130-400); RED BLOOD CELL COUNT 3.94 mill/uL (4.2-5.4); RED CELL DISTRIBUTION WIDTH 27.6 % (11.6-14.6)
[2019-04-07 10:09] LABS: T4 FREE 0.85 ng/dL (0.76-1.46)
[2019-04-07] MEDS: UMECLIDINIUM BROMIDE 1 INH BLST.W.DEV IH SCH (14:07)
[2019-04-07] MEDS: FLUTICASONE/VILANTEROL 200-25 BLST.W.DEV ORI SCH (14:07)
[2019-04-07] MEDS: LETAIRIS 10 MG PO SCH (18:07)
[2019-04-07 20:13] LABS: TOTAL IRON BINDING CAPACITY 397 ug/dL (250-450)
[2019-04-07] MEDS: IPRATROPIUM/ALBUTEROL 0.5-3(2.5)MG/3ML NEB HHN PRN (20:39)
[2019-04-07 20:59] LABS: FOLIC ACID (FOLATE) SERUM 13.8 ng/mL (>5.38)
[2019-04-07] MEDS: LATANOPROST 0.005% OPHTH DROPS 2.5ML EACHEYE SCH (21:14)
[2019-04-08] VITALS (16 sets, daily range): BP systolic 119–144; BP diastolic 73–93
[2019-04-08] MEDS: METHYLPREDNISOLONE SOD SUCC 40 MG/ML VIAL IV SCH ×3 (03:58→21:27)
[2019-04-08] MEDS: HYDROCODONE/ACETAMINOPHEN 10/325MG TABLET PO PRN ×5 (05:10→22:53)
[2019-04-08] MEDS: OMEPRAZOLE 20MG CAPSULE EXTENDED RELEASE PO SCH (06:15)
[2019-04-08] MEDS: FUROSEMIDE 40MG/4ML VIAL IVP SCH ×2 (06:15→17:19)
[2019-04-08] MEDS: DILTIAZEM HCL 60MG TABLET PO SCH ×3 (06:16→21:27)
[2019-04-08] MEDS: BLOOD SUGAR DIAGNOSTIC STRIP TEST SCH ×4 (06:42→21:00)
[2019-04-08] MEDS: INSULIN LISPRO 100 UNITS/ML SUBCUT SCH ×4 (08:00→22:16)
[2019-04-08] MEDS: FERROUS SULFATE 325MG TABLET PO SCH ×3 (08:20→17:24)
[2019-04-08] MEDS: METFORMIN HCL 500MG TABLET PO SCH ×2 (08:20→17:19)
[2019-04-08] MEDS: DORZOLAMIDE 2% OPHTH 10 ML BOTTLE EACHEYE SCH ×2 (08:21→17:18)
[2019-04-08] MEDS: UMECLIDINIUM BROMIDE 1 INH BLST.W.DEV IH SCH (08:22)
[2019-04-08] MEDS: FLUTICASONE/VILANTEROL 200-25 BLST.W.DEV ORI SCH (08:23)
[2019-04-08] MEDS: SPIRONOLACTONE 25MG TABLET PO SCH (08:24)
[2019-04-08] MEDS: CITALOPRAM HYDROBROMIDE 10MG TABLET PO SCH (08:25)
[2019-04-08] MEDS: LINAGLIPTIN 5MG TABLET PO SCH (08:26)
[2019-04-08] MEDS: METHIMAZOLE 5MG TABLET PO SCH (08:26)
[2019-04-08] MEDS: LETAIRIS 10 MG PO SCH (08:27)
[2019-04-08] MEDS: IPRATROPIUM/ALBUTEROL 0.5-3(2.5)MG/3ML NEB HHN PRN ×4 (08:40→20:34)
[2019-04-08 10:12] LABS: HEMATOCRIT 25.9 % (36.0-48.0); HEMOGLOBIN 8.1 g/dL (12.0-16.0)
[2019-04-08] MEDS: LATANOPROST 0.005% OPHTH DROPS 2.5ML EACHEYE SCH (22:16)
[2019-04-09] VITALS (13 sets, daily range): BP systolic 108–146; BP diastolic 50–86
[2019-04-09] MEDS: IPRATROPIUM/ALBUTEROL 0.5-3(2.5)MG/3ML NEB HHN PRN ×3 (01:15→14:55)
[2019-04-09] MEDS: HYDROCODONE/ACETAMINOPHEN 10/325MG TABLET PO PRN ×5 (04:30→21:16)
[2019-04-09] MEDS: METFORMIN HCL 500MG TABLET PO SCH ×2 (06:21→17:09)
[2019-04-09] MEDS: DILTIAZEM HCL 60MG TABLET PO SCH ×3 (06:21→21:09)
[2019-04-09] MEDS: FERROUS SULFATE 325MG TABLET PO SCH ×3 (06:21→17:09)
[2019-04-09] MEDS: FUROSEMIDE 40MG/4ML VIAL IVP SCH ×2 (06:21→18:08)
[2019-04-09] MEDS: BLOOD SUGAR DIAGNOSTIC STRIP TEST SCH ×6 (06:50→20:00)
[2019-04-09] MEDS: INSULIN LISPRO 100 UNITS/ML SUBCUT SCH ×4 (08:50→20:06)
[2019-04-09] MEDS: FAMOTIDINE 20MG TABLET PO SCH ×2 (08:51→20:05)
[2019-04-09] MEDS: SPIRONOLACTONE 25MG TABLET PO SCH (08:51)
[2019-04-09] MEDS: METHYLPREDNISOLONE SOD SUCC 40 MG/ML VIAL IV SCH ×2 (08:51→20:06)
[2019-04-09] MEDS: LETAIRIS 10 MG PO SCH (08:52)
[2019-04-09] MEDS: LINAGLIPTIN 5MG TABLET PO SCH (08:52)
[2019-04-09] MEDS: METHIMAZOLE 5MG TABLET PO SCH (08:52)
[2019-04-09] MEDS: DORZOLAMIDE 2% OPHTH 10 ML BOTTLE EACHEYE SCH ×2 (08:53→17:09)
[2019-04-09] MEDS: FLUTICASONE/VILANTEROL 200-25 BLST.W.DEV ORI SCH (08:53)
[2019-04-09] MEDS: UMECLIDINIUM BROMIDE 1 INH BLST.W.DEV IH SCH (08:54)
[2019-04-09 09:39] LABS: HEMATOCRIT 26.9 % (36.0-48.0); HEMOGLOBIN 8.3 g/dL (12.0-16.0)
[2019-04-09] MEDS: CITALOPRAM HYDROBROMIDE 10MG TABLET PO SCH (10:59)
[2019-04-09] MEDS ORDERED: DEXTROSE 50% WATER 50ML SYRINGE IV PRN (12:30)
[2019-04-09] MEDS ORDERED: INSULIN LISPRO 100 UNITS/ML SUBCUT SCH (17:20)
[2019-04-09] MEDS: LATANOPROST 0.005% OPHTH DROPS 2.5ML EACHEYE SCH (20:05)
[2019-04-10] VITALS (12 sets, daily range): BP systolic 122–144; BP diastolic 66–83
[2019-04-10] MEDS: IPRATROPIUM/ALBUTEROL 0.5-3(2.5)MG/3ML NEB HHN PRN ×3 (01:45→17:38)
[2019-04-10] MEDS: DILTIAZEM HCL 60MG TABLET PO SCH ×3 (05:00→21:02)
[2019-04-10] MEDS: HYDROCODONE/ACETAMINOPHEN 10/325MG TABLET PO PRN ×3 (05:39→22:55)
[2019-04-10] MEDS: BLOOD SUGAR DIAGNOSTIC STRIP TEST SCH ×5 (06:27→21:00)
[2019-04-10 06:31] LABS: CHLORIDE 96 mEq/L (98-107)
[2019-04-10 06:35] LABS: HEMATOCRIT 26.2 % (36.0-48.0); HEMOGLOBIN 8.2 g/dL (12.0-16.0)
[2019-04-10] MEDS: FAMOTIDINE 20MG TABLET PO SCH ×2 (08:02→21:01)
[2019-04-10] MEDS: FUROSEMIDE 40MG/4ML VIAL IVP SCH (08:02)
[2019-04-10] MEDS: METFORMIN HCL 500MG TABLET PO SCH ×2 (08:02→18:00)
[2019-04-10] MEDS: FERROUS SULFATE 325MG TABLET PO SCH ×3 (08:02→18:00)
[2019-04-10] MEDS: SPIRONOLACTONE 25MG TABLET PO SCH (08:02)
[2019-04-10] MEDS: METHIMAZOLE 5MG TABLET PO SCH ×2 (08:02→18:00)
[2019-04-10] MEDS: LINAGLIPTIN 5MG TABLET PO SCH (08:02)
[2019-04-10] MEDS: METHYLPREDNISOLONE SOD SUCC 40 MG/ML VIAL IV SCH (08:03)
[2019-04-10] MEDS: UMECLIDINIUM BROMIDE 1 INH BLST.W.DEV IH SCH (08:03)
[2019-04-10] MEDS: LETAIRIS 10 MG PO SCH (08:03)
[2019-04-10] MEDS: DORZOLAMIDE 2% OPHTH 10 ML BOTTLE EACHEYE SCH ×2 (08:03→17:59)
[2019-04-10] MEDS: CITALOPRAM HYDROBROMIDE 10MG TABLET PO SCH (08:04)
[2019-04-10] MEDS: FLUTICASONE/VILANTEROL 200-25 BLST.W.DEV ORI SCH (08:04)
[2019-04-10] MEDS: INSULIN LISPRO 100 UNITS/ML SUBCUT SCH ×4 (08:05→21:21)
[2019-04-10 13:14] LABS: BG BASE EXCESS 3.7 mmol/L (-2.0-2.0); BG CARBOXYHEMOGLOBIN 0.3 % (0.5-1.5); BG DEOXYHEMOGLOBIN 3.9 % (0.0-5.0); BG FRACTION INSPIRED OXYGEN 32; BG OXYGEN SATURATION 96.1 % (92.0-98.5); BG OXYHEMOGLOBIN 95.8 % (94.0-97.0); BG PCO2 47.2 mmHg (35.0-45.0); BG PH 7.406 (7.350-7.450); BG PO2 86.2 mmHg (75.0-100.0); BG SAMPLE SITE RIGHT RADIAL; BG TOTAL HEMOGLOBIN 10.5 g/dL (12.0-18.0); BG VENT MODE NASAL CANNULA
[2019-04-10] MEDS ORDERED: HYDROCODONE/ACETAMINOPHEN 10/325MG TABLET PO NR (13:15)
[2019-04-10] MEDS ORDERED: SORBITOL 70% SOLN 30ML PO NR ×2 (15:00→20:00)
[2019-04-10] MEDS: LATANOPROST 0.005% OPHTH DROPS 2.5ML EACHEYE SCH (21:01)
[2019-04-11] VITALS: BP 108/61
[2019-04-11] MEDS: HYDROCODONE/ACETAMINOPHEN 10/325MG TABLET PO PRN ×3 (00:52→12:34)
[2019-04-11 04:00] VITALS: BP 103/65
[2019-04-11] MEDS ORDERED: HYDROCODONE/ACETAMINOPHEN 10/325MG TABLET PO PRN (05:30)
[2019-04-11] MEDS: DILTIAZEM HCL 60MG TABLET PO SCH ×3 (05:48→21:04)
[2019-04-11 06:42] LABS: BASOPHILS % 0.2 % (0.0-2.0); HEMATOCRIT. 27.6 % (36.0-48.0); HEMOGLOBIN. 8.5 g/dL (12.0-16.0); LYMPHOCYTES % 11.3 % (20.0-50.0); MEAN CORPUSCULAR HEMOGLOBIN 21.2 pg (28.0-32.0); MEAN PLATELET VOLUME 7.1 fl (7.4-10.4); NEUTROPHILS % 79.5 % (40.0-76.0); PLATELET 465 x1000/uL (130-400); RED CELL DISTRIBUTION WIDTH 28.3 % (11.6-14.6)
[2019-04-11 06:48] LABS: CHLORIDE 97 mEq/L (98-107)
[2019-04-11] MEDS ORDERED: SORBITOL 70% SOLN 30ML PO NR ×2 (07:00→10:45)
[2019-04-11] MEDS: BLOOD SUGAR DIAGNOSTIC STRIP TEST SCH ×4 (07:10→20:46)
[2019-04-11] MEDS: INSULIN LISPRO 100 UNITS/ML SUBCUT SCH ×4 (07:40→21:02)
[2019-04-11] MEDS: FUROSEMIDE 40MG/4ML VIAL IVP SCH (08:25)
[2019-04-11] MEDS: METFORMIN HCL 500MG TABLET PO SCH ×2 (08:25→17:40)
[2019-04-11] MEDS: CITALOPRAM HYDROBROMIDE 10MG TABLET PO SCH (08:26)
[2019-04-11] MEDS: SPIRONOLACTONE 25MG TABLET PO SCH (08:26)
[2019-04-11] MEDS: METHIMAZOLE 5MG TABLET PO SCH ×2 (08:26→17:00)
[2019-04-11] MEDS: PREDNISONE 10MG TABLET PO SCH (08:26)
[2019-04-11] MEDS: LINAGLIPTIN 5MG TABLET PO SCH (08:26)
[2019-04-11] MEDS: FERROUS SULFATE 325MG TABLET PO SCH ×3 (08:29→17:40)
[2019-04-11] MEDS: FAMOTIDINE 20MG TABLET PO SCH ×2 (08:32→21:04)
[2019-04-11] MEDS: DORZOLAMIDE 2% OPHTH 10 ML BOTTLE EACHEYE SCH ×2 (09:00→17:00)
[2019-04-11] MEDS: UMECLIDINIUM BROMIDE 1 INH BLST.W.DEV IH SCH (09:00)
[2019-04-11] MEDS: FLUTICASONE/VILANTEROL 200-25 BLST.W.DEV ORI SCH (09:00)
[2019-04-11] MEDS: IPRATROPIUM/ALBUTEROL 0.5-3(2.5)MG/3ML NEB HHN PRN (11:34)
[2019-04-11 12:00] VITALS: BP 106/64
[2019-04-11] MEDS ORDERED: DIPHENHYDRAMINE 50MG/ML VIAL ONE (14:55)
[2019-04-11] MEDS ORDERED: FENTANYL CITRATE/PF 50MCG/ML 2ML VIAL ONE ×2 (14:55→16:15)
[2019-04-11] MEDS ORDERED: MIDAZOLAM HCL 2 MG/2 ML VIAL ONE ×2 (14:55→16:16)
[2019-04-11] MEDS ORDERED: PROPOFOL 200MG/20ML VIAL IV ONE ×2 (14:56→15:55)
[2019-04-11] MEDS ORDERED: LIDOCAINE HCL/PF 1% 10 MG/ML 5ML VIAL ONE (14:56)
[2019-04-11] MEDS ORDERED: SIMETHICONE 40 MG/0.6 ML 30ML ONE (15:02)
[2019-04-11 20:00] VITALS: BP 122/60
[2019-04-11] MEDS: LATANOPROST 0.005% OPHTH DROPS 2.5ML EACHEYE SCH (21:31)
[2019-04-12] VITALS: BP 119/68
[2019-04-12 04:00] VITALS: BP 113/62
[2019-04-12] MEDS: HYDROCODONE/ACETAMINOPHEN 10/325MG TABLET PO PRN ×4 (04:57→21:25)
[2019-04-12] MEDS: DILTIAZEM HCL 60MG TABLET PO SCH ×3 (05:14→22:25)
[2019-04-12] MEDS: BLOOD SUGAR DIAGNOSTIC STRIP TEST SCH ×4 (06:09→20:52)
[2019-04-12] MEDS: INSULIN LISPRO 100 UNITS/ML SUBCUT SCH ×4 (06:25→21:26)
[2019-04-12] MEDS: FLUTICASONE/VILANTEROL 200-25 BLST.W.DEV ORI SCH (09:00)
[2019-04-12] MEDS: LETAIRIS 10 MG PO SCH ×2 (09:00→10:46)
[2019-04-12] MEDS: FUROSEMIDE 40MG/4ML VIAL IVP SCH (10:43)
[2019-04-12] MEDS: CITALOPRAM HYDROBROMIDE 10MG TABLET PO SCH (10:44)
[2019-04-12] MEDS: LINAGLIPTIN 5MG TABLET PO SCH (10:44)
[2019-04-12] MEDS: METFORMIN HCL 500MG TABLET PO SCH ×2 (10:44→16:12)
[2019-04-12] MEDS: FAMOTIDINE 20MG TABLET PO SCH ×2 (10:44→21:19)
[2019-04-12] MEDS: PREDNISONE 10MG TABLET PO SCH (10:44)
[2019-04-12] MEDS: FERROUS SULFATE 325MG TABLET PO SCH ×3 (10:45→16:18)
[2019-04-12] MEDS: SPIRONOLACTONE 25MG TABLET PO SCH (10:45)
[2019-04-12] MEDS: DORZOLAMIDE 2% OPHTH 10 ML BOTTLE EACHEYE SCH ×2 (10:45→16:18)
[2019-04-12] MEDS: UMECLIDINIUM BROMIDE 1 INH BLST.W.DEV IH SCH (10:46)
[2019-04-12] MEDS: METHIMAZOLE 5MG TABLET PO SCH ×2 (11:46→16:12)
[2019-04-12 12:00] VITALS: BP 112/65
[2019-04-12] MEDS: IPRATROPIUM/ALBUTEROL 0.5-3(2.5)MG/3ML NEB HHN PRN ×3 (12:40→20:17)
[2019-04-12 16:00] VITALS: BP 113/70
[2019-04-12] MEDS: CYANOCOBALAMIN 1000MCG/ML VIAL IM SCH (17:00)
[2019-04-12 20:00] VITALS: BP 122/72
[2019-04-12 20:38] LABS: CREATINE KINASE 17 IU/L (26-192)
[2019-04-12] MEDS: LATANOPROST 0.005% OPHTH DROPS 2.5ML EACHEYE SCH (21:18)
[2019-04-12] MEDS ORDERED: INSULIN GLARGINE UD 100 UNITS/ML SYR SUBCUT SCH (22:00)
[2019-04-13] VITALS: BP 116/63
[2019-04-13] MEDS: HYDROCODONE/ACETAMINOPHEN 10/325MG TABLET PO PRN ×4 (01:26→17:08)
[2019-04-13 04:00] VITALS: BP 112/73
[2019-04-13] MEDS: INSULIN LISPRO 100 UNITS/ML SUBCUT SCH ×3 (06:42→17:18)
[2019-04-13] MEDS: BLOOD SUGAR DIAGNOSTIC STRIP TEST SCH ×3 (06:43→17:01)
[2019-04-13] MEDS: DILTIAZEM HCL 60MG TABLET PO SCH ×2 (06:43→14:39)
[2019-04-13 07:27] LABS: HEMATOCRIT. 29.3 % (36.0-48.0); MEAN CORPUSCULAR HEMOGLOBIN 21.2 pg (28.0-32.0); MEAN CORPUSCULAR VOLUME 68.8 fL (81.0-99.0); MEAN PLATELET VOLUME 7.1 fl (7.4-10.4); PLATELET 465 x1000/uL (130-400); RED BLOOD CELL COUNT 4.25 mill/uL (4.2-5.4); RED CELL DISTRIBUTION WIDTH 28.2 % (11.6-14.6)
[2019-04-13 08:00] VITALS: BP 114/69
[2019-04-13] MEDS: FUROSEMIDE 40MG/4ML VIAL IVP SCH (08:22)
[2019-04-13] MEDS: PREDNISONE 10MG TABLET PO SCH (08:22)
[2019-04-13] MEDS: CITALOPRAM HYDROBROMIDE 10MG TABLET PO SCH (08:22)
[2019-04-13] MEDS: METFORMIN HCL 500MG TABLET PO SCH ×2 (08:22→17:14)
[2019-04-13] MEDS: SPIRONOLACTONE 25MG TABLET PO SCH (08:22)
[2019-04-13] MEDS: LINAGLIPTIN 5MG TABLET PO SCH (08:23)
[2019-04-13] MEDS: METHIMAZOLE 5MG TABLET PO SCH ×2 (08:23→17:14)
[2019-04-13] MEDS: FAMOTIDINE 20MG TABLET PO SCH (08:23)
[2019-04-13] MEDS: CYANOCOBALAMIN 1000MCG/ML VIAL IM SCH (08:24)
[2019-04-13] MEDS: FLUTICASONE/VILANTEROL 200-25 BLST.W.DEV ORI SCH (08:24)
[2019-04-13] MEDS: DORZOLAMIDE 2% OPHTH 10 ML BOTTLE EACHEYE SCH ×2 (08:24→17:14)
[2019-04-13] MEDS: LETAIRIS 10 MG PO SCH (08:25)
[2019-04-13] MEDS: UMECLIDINIUM BROMIDE 1 INH BLST.W.DEV IH SCH (08:25)
[2019-04-13 08:26] LABS: CHLORIDE 97 mEq/L (98-107)
[2019-04-13] MEDS: IPRATROPIUM/ALBUTEROL 0.5-3(2.5)MG/3ML NEB HHN PRN ×2 (08:48→12:46)
[2019-04-13] MEDS: FERROUS SULFATE 325MG TABLET PO SCH ×3 (09:06→17:14)
[2019-04-13 12:00] VITALS: BP 111/62
[2019-04-13 13:33] LABS: PLATELET ESTIMATE INCREASED
[2019-04-13] MEDS ORDERED: NA PHOS,M-B/NA PHOS,DI-BA ENEMA 118ML PR SCH (15:00)
[2019-04-13] MEDS ORDERED: MAGNESIUM HYDROXIDE 400MG/5ML 30ML UDC PO SCH (15:00)
[2019-04-13 16:00] VITALS: BP 107/63
[2019-04-13 18:41] VITALS: BP 107/63
[2019-04-13] MEDS ORDERED: APIXABAN 5 MG TABLET PO SCH (21:00)
[2019-04-14] MEDS ORDERED: FUROSEMIDE 40MG TABLET PO SCH (09:00)
[2019-04-14] MEDS ORDERED: DILTIAZEM HCL 180MG CAPSULE CD 24HR PO SCH (09:00)
[2019-04-19] MEDS ORDERED: CYANOCOBALAMIN 1000MCG/ML VIAL IM SCH (09:00)
== END 2019-04-13 19:30 | DRG 393 ==
LOC: ER 21:31 → 3WST 22:53 → EDBEDREQSVC 22:55 → EDBEDREQTM 22:55 → EDBEDREQ 22:55 → ENRESERV 23:57 → 8WST 04-10 23:43
PROVIDERS: ADMIT Internal Medicine Pulmonary Disease; ATTEND Internal Medicine Pulmonary Disease
PROC: 5A09557 Assistance with Respiratory Ventilation, Greater than 96 Consecutive Hours, Continuous Positive Airway Pressure (ICD-10-PCS; 2019-04-05)
PROC: 30233N1 Transfusion of Nonautologous Red Blood Cells into Peripheral Vein, Percutaneous Approach (ICD-10-PCS; 2019-04-06)
PROC: 0DB78ZX Excision of Stomach, Pylorus, Via Natural or Artificial Opening Endoscopic, Diagnostic (ICD-10-PCS; principal; 2019-04-11)
PROC: 0DBL8ZX Excision of Transverse Colon, Via Natural or Artificial Opening Endoscopic, Diagnostic (ICD-10-PCS; 2019-04-11)
PROC: 0D5K8ZZ Destruction of Ascending Colon, Via Natural or Artificial Opening Endoscopic (ICD-10-PCS; 2019-04-11)
PROC: 0DBH8ZX Excision of Cecum, Via Natural or Artificial Opening Endoscopic, Diagnostic (ICD-10-PCS; 2019-04-11)
PROC: 5A09357 Assistance with Respiratory Ventilation, Less than 24 Consecutive Hours, Continuous Positive Airway Pressure (ICD-10-PCS; 2019-04-13)
DX: D12.6 Benign neoplasm of colon, unspecified (principal); J96.21 Acute and chronic respiratory failure with hypoxia; K29.71 Gastritis, unspecified, with bleeding; J96.22 Acute and chronic respiratory failure with hypercapnia; J44.1 Chronic obstructive pulmonary disease with (acute) exacerbation; I48.20 Chronic atrial fibrillation, unspecified; Z68.41 Body mass index [BMI] 40.0-44.9, adult; I50.32 Chronic diastolic (congestive) heart failure; D50.9 Iron deficiency anemia, unspecified; I11.0 Hypertensive heart disease with heart failure; E05.90 Thyrotoxicosis, unspecified without thyrotoxic crisis or storm; I27.29 Other secondary pulmonary hypertension; E11.9 Type 2 diabetes mellitus without complications; I35.0 Nonrheumatic aortic (valve) stenosis; D72.829 Elevated white blood cell count, unspecified; E03.9 Hypothyroidism, unspecified; E53.8 Deficiency of other specified B group vitamins; E66.01 Morbid (severe) obesity due to excess calories; D12.3 Benign neoplasm of transverse colon; D12.0 Benign neoplasm of cecum; G47.33 Obstructive sleep apnea (adult) (pediatric); T38.0X5A Adverse effect of glucocorticoids and synthetic analogues, initial encounter; Y92.89 Other specified places as the place of occurrence of the external cause; Z22.322 Carrier or suspected carrier of Methicillin resistant Staphylococcus aureus; Z95.0 Presence of cardiac pacemaker; Z87.891 Personal history of nicotine dependence; Z90.710 Acquired absence of both cervix and uterus; Z79.52 Long term (current) use of systemic steroids; Z80.1 Family history of malignant neoplasm of trachea, bronchus and lung; Z82.49 Family history of ischemic heart disease and other diseases of the circulatory system; Z83.3 Family history of diabetes mellitus; Z79.899 Other long term (current) drug therapy
CPT/HCPCS: 36415; 36600; 71045; 80048; 80305; 80320; 81003; 82270; 82375; 82550; 82607; 82728; 82746; 82805; 82962; 83540; 83550; 83605; 83735; 83880; 84100; 84439; 84443; 84481; 84484; 85014; 85018; 86850; 86900; 86920; 88305; 88313; 93005; 93970; 94640; 94660; 97162; 97530; 99291; J1200; J1815; J1940; J2250; J2270; J2405; J2704; J2920; J3010; J3420; J3490; J7040; J7512; J7620; P9016; A4315; G0480

== ENCOUNTER 2019-04-13 19:35 | Inpatient (IN) | payer MEDICARE, MEDICAID ==
[2019-04-12 20:00] VITALS: BP 110/65
[~2019-04-13] VITALS: Ht 165.1 cm; Wt 118.4 kg
[~2019-04-13 19:35] MED LIST changes: +AMBR10TA3 PO; +APIX5TAB PO; +AZOPT EACHEYE; +BRIN8DRO EACHEYE; +ESCI20TA36 PO; +FLUT1DIS6 INH; +FURO40TA5 PO; +LINA5TAB PO; +METF-815 PO; +POTA-79 PO; +PRED10TA23 PO; +SPIR25TA6 PO; +TRAV2.5D EACHEYE; +UMEC62.5 IH
[2019-04-13 20:00] VITALS: BP 110/65
[2019-04-13] MEDS ORDERED: NA PHOS,M-B/NA PHOS,DI-BA ENEMA 118ML PR SCH (20:45)
[2019-04-13] MEDS ORDERED: DEXTROSE 50% WATER 50ML SYRINGE IV PRN (20:45)
[2019-04-13] MEDS: INSULIN LISPRO 100 UNITS/ML SUBCUT SCH (21:00)
[2019-04-13] MEDS: HYDROCODONE/ACETAMINOPHEN 10/325MG TABLET PO PRN (21:24)
[2019-04-13] MEDS: APIXABAN 5 MG TABLET PO SCH (21:24)
[2019-04-13] MEDS: BLOOD SUGAR DIAGNOSTIC STRIP TEST SCH (21:25)
[2019-04-13] MEDS: FAMOTIDINE 20MG TABLET PO SCH (22:27)
[2019-04-13] MEDS: LATANOPROST 0.005% OPHTH DROPS 2.5ML EACHEYE SCH (22:27)
[2019-04-13] MEDS: INSULIN GLARGINE UD 100 UNITS/ML SYR SUBCUT SCH (23:51)
[2019-04-14] MEDS: INSULIN LISPRO 100 UNITS/ML SUBCUT SCH ×4 (05:53→22:20)
[2019-04-14] MEDS: BLOOD SUGAR DIAGNOSTIC STRIP TEST SCH ×4 (05:53→21:12)
[2019-04-14] MEDS: HYDROCODONE/ACETAMINOPHEN 10/325MG TABLET PO PRN ×5 (05:56→22:30)
[2019-04-14 08:00] VITALS: BP 133/80
[2019-04-14] MEDS: UMECLIDINIUM BROMIDE 1 INH BLST.W.DEV IH SCH (08:20)
[2019-04-14] MEDS: CYANOCOBALAMIN 1000MCG/ML VIAL IM SCH (08:21)
[2019-04-14] MEDS: FLUTICASONE/VILANTEROL 200-25 BLST.W.DEV ORI SCH (08:21)
[2019-04-14] MEDS: LETAIRIS 10 MG PO SCH (08:21)
[2019-04-14] MEDS: LINAGLIPTIN 5MG TABLET PO SCH (08:22)
[2019-04-14] MEDS: SPIRONOLACTONE 25MG TABLET PO SCH (08:22)
[2019-04-14] MEDS: APIXABAN 5 MG TABLET PO SCH ×2 (08:23→21:11)
[2019-04-14] MEDS: FUROSEMIDE 40MG TABLET PO SCH (08:23)
[2019-04-14] MEDS: METHIMAZOLE 5MG TABLET PO SCH ×2 (08:23→17:18)
[2019-04-14] MEDS: FAMOTIDINE 20MG TABLET PO SCH ×2 (08:24→21:11)
[2019-04-14] MEDS: CITALOPRAM HYDROBROMIDE 10MG TABLET PO SCH (08:24)
[2019-04-14] MEDS: FERROUS SULFATE 325MG TABLET PO SCH ×3 (08:25→17:18)
[2019-04-14] MEDS: DILTIAZEM HCL 180MG CAPSULE CD 24HR PO SCH (08:25)
[2019-04-14] MEDS: METFORMIN HCL 500MG TABLET PO SCH ×2 (08:25→17:18)
[2019-04-14] MEDS: DORZOLAMIDE 2% OPHTH 10 ML BOTTLE EACHEYE SCH ×2 (08:25→17:18)
[2019-04-14 10:54] LABS: HEMATOCRIT. 32.9 % (36.0-48.0); HEMOGLOBIN. 10.2 g/dL (12.0-16.0); MEAN CORPUSCULAR HEMOGLOBIN 21.5 pg (28.0-32.0); MEAN CORPUSCULAR VOLUME 69.4 fL (81.0-99.0); MEAN PLATELET VOLUME 7.2 fl (7.4-10.4); PLATELET 491 x1000/uL (130-400); RED BLOOD CELL COUNT 4.73 mill/uL (4.2-5.4); RED CELL DISTRIBUTION WIDTH 28.5 % (11.6-14.6)
[2019-04-14 12:06] LABS: CHLORIDE 100 mEq/L (98-107)
[2019-04-14 13:05] LABS: PLATELET ESTIMATE INCREASED
[2019-04-14] MEDS: IPRATROPIUM/ALBUTEROL 0.5-3(2.5)MG/3ML NEB HHN PRN (15:58)
[2019-04-14] MEDS: DOCUSATE SODIUM 250MG CAPSULE PO SCH (17:53)
[2019-04-14 20:00] VITALS: BP 111/60
[2019-04-14] MEDS: INSULIN GLARGINE UD 100 UNITS/ML SYR SUBCUT SCH (22:20)
[2019-04-14] MEDS: LATANOPROST 0.005% OPHTH DROPS 2.5ML EACHEYE SCH (22:28)
[2019-04-15] MEDS: HYDROCODONE/ACETAMINOPHEN 10/325MG TABLET PO PRN ×4 (05:23→20:07)
[2019-04-15] MEDS: INSULIN LISPRO 100 UNITS/ML SUBCUT SCH ×4 (06:36→22:03)
[2019-04-15] MEDS: BLOOD SUGAR DIAGNOSTIC STRIP TEST SCH ×4 (06:36→21:45)
[2019-04-15 07:10] LABS: HEMATOCRIT. 30.8 % (36.0-48.0); HEMOGLOBIN. 9.5 g/dL (12.0-16.0); MEAN CORPUSCULAR HEMOGLOBIN 21.4 pg (28.0-32.0); MEAN CORPUSCULAR VOLUME 69.5 fL (81.0-99.0); MEAN PLATELET VOLUME 8.3 fl (7.4-10.4); PLATELET 431 x1000/uL (130-400); RED BLOOD CELL COUNT 4.43 mill/uL (4.2-5.4); RED CELL DISTRIBUTION WIDTH 28.7 % (11.6-14.6)
[2019-04-15 07:30] LABS: CHLORIDE 98 mEq/L (98-107)
[2019-04-15 08:00] VITALS: BP 129/73
[2019-04-15] MEDS: METFORMIN HCL 500MG TABLET PO SCH ×2 (08:27→16:33)
[2019-04-15] MEDS: CITALOPRAM HYDROBROMIDE 10MG TABLET PO SCH (08:27)
[2019-04-15] MEDS: FAMOTIDINE 20MG TABLET PO SCH ×2 (08:27→20:07)
[2019-04-15] MEDS: SPIRONOLACTONE 25MG TABLET PO SCH (08:27)
[2019-04-15] MEDS: FUROSEMIDE 40MG TABLET PO SCH (08:28)
[2019-04-15] MEDS: APIXABAN 5 MG TABLET PO SCH ×2 (08:28→20:07)
[2019-04-15] MEDS: METHIMAZOLE 5MG TABLET PO SCH ×2 (08:28→16:32)
[2019-04-15] MEDS: DOCUSATE SODIUM 250MG CAPSULE PO SCH ×2 (08:28→16:33)
[2019-04-15] MEDS: FERROUS SULFATE 325MG TABLET PO SCH ×3 (08:28→16:33)
[2019-04-15] MEDS: DILTIAZEM HCL 180MG CAPSULE CD 24HR PO SCH (08:28)
[2019-04-15] MEDS: UMECLIDINIUM BROMIDE 1 INH BLST.W.DEV IH SCH (08:29)
[2019-04-15] MEDS: DORZOLAMIDE 2% OPHTH 10 ML BOTTLE EACHEYE SCH ×2 (08:29→16:33)
[2019-04-15] MEDS: LETAIRIS 10 MG PO SCH (08:29)
[2019-04-15] MEDS: CYANOCOBALAMIN 1000MCG/ML VIAL IM SCH (08:29)
[2019-04-15] MEDS: FLUTICASONE/VILANTEROL 200-25 BLST.W.DEV ORI SCH (08:29)
[2019-04-15] MEDS: LINAGLIPTIN 5MG TABLET PO SCH (08:29)
[2019-04-15] MEDS: IPRATROPIUM/ALBUTEROL 0.5-3(2.5)MG/3ML NEB HHN PRN (09:47)
[2019-04-15 19:52] LABS: CLARITY URINE CLOUDY (CLEAR); COLOR URINE YELLOW (YELLOW); KETONES URINE NEGATIVE (NEGATIVE); LEUKOCYTE ESTERASE URINE 2+ (NEGATIVE); NITRITE URINE NEGATIVE (NEGATIVE); OCCULT BLOOD URINE NEGATIVE (NEGATIVE); PROTEIN URINE NEGATIVE (NEGATIVE); SPECIFIC GRAVITY URINE 1.012 (1.005-1.030); UROBILINOGEN URINE 0.2 E.U./dL (0.2-1.0)
[2019-04-15 20:00] VITALS: BP 103/59
[2019-04-15] MEDS: LATANOPROST 0.005% OPHTH DROPS 2.5ML EACHEYE SCH (20:07)
[2019-04-15 21:41] LABS: NUCLEATED RED BLOOD CELLS 1 /100 WBC
[2019-04-15 21:42] LABS: PLATELET ESTIMATE INCREASED
[2019-04-15] MEDS: INSULIN GLARGINE UD 100 UNITS/ML SYR SUBCUT SCH (22:03)
[2019-04-16] MEDS: HYDROCODONE/ACETAMINOPHEN 10/325MG TABLET PO PRN ×5 (03:55→21:09)
[2019-04-16] MEDS: BLOOD SUGAR DIAGNOSTIC STRIP TEST SCH ×4 (05:45→21:13)
[2019-04-16] MEDS: INSULIN LISPRO 100 UNITS/ML SUBCUT SCH ×4 (06:36→21:00)
[2019-04-16 08:20] LABS: HEMATOCRIT. 29.2 % (36.0-48.0); HEMOGLOBIN. 8.8 g/dL (12.0-16.0); MEAN CORPUSCULAR HEMOGLOBIN 21.2 pg (28.0-32.0); MEAN CORPUSCULAR VOLUME 70.2 fL (81.0-99.0); MEAN PLATELET VOLUME 8.4 fl (7.4-10.4); PLATELET 403 x1000/uL (130-400); RED BLOOD CELL COUNT 4.16 mill/uL (4.2-5.4); RED CELL DISTRIBUTION WIDTH 28.8 % (11.6-14.6)
[2019-04-16 08:33] LABS: CHLORIDE 100 mEq/L (98-107)
[2019-04-16 08:36] VITALS: BP 107/59
[2019-04-16 08:42] LABS: PHOSPHORUS 3.5 mg/dL (2.5-4.9)
[2019-04-16] MEDS: FERROUS SULFATE 325MG TABLET PO SCH ×3 (08:52→16:18)
[2019-04-16] MEDS: METFORMIN HCL 500MG TABLET PO SCH ×2 (08:52→16:18)
[2019-04-16] MEDS: CITALOPRAM HYDROBROMIDE 10MG TABLET PO SCH (08:52)
[2019-04-16] MEDS: DOCUSATE SODIUM 250MG CAPSULE PO SCH ×2 (08:52→16:18)
[2019-04-16] MEDS: LINAGLIPTIN 5MG TABLET PO SCH (08:52)
[2019-04-16] MEDS: FAMOTIDINE 20MG TABLET PO SCH ×2 (08:52→20:35)
[2019-04-16] MEDS: UMECLIDINIUM BROMIDE 1 INH BLST.W.DEV IH SCH (08:53)
[2019-04-16] MEDS: FUROSEMIDE 40MG TABLET PO SCH (08:53)
[2019-04-16] MEDS: METHIMAZOLE 5MG TABLET PO SCH ×2 (08:53→16:18)
[2019-04-16] MEDS: CYANOCOBALAMIN 1000MCG/ML VIAL IM SCH (08:53)
[2019-04-16] MEDS: LETAIRIS 10 MG PO SCH (08:53)
[2019-04-16] MEDS: DORZOLAMIDE 2% OPHTH 10 ML BOTTLE EACHEYE SCH ×2 (08:54→16:18)
[2019-04-16] MEDS: FLUTICASONE/VILANTEROL 200-25 BLST.W.DEV ORI SCH (08:54)
[2019-04-16] MEDS: DILTIAZEM HCL 180MG CAPSULE CD 24HR PO SCH (09:00)
[2019-04-16] MEDS: SPIRONOLACTONE 25MG TABLET PO SCH (09:00)
[2019-04-16] MEDS: APIXABAN 5 MG TABLET PO SCH ×3 (09:00→20:35)
[2019-04-16] MEDS: MUPIROCIN 2% OINT 22GM NS SCH ×2 (11:01→20:35)
[2019-04-16 13:28] LABS: PLATELET ESTIMATE SLIGHTLY INCREASED
[2019-04-16 20:00] VITALS: BP 100/64
[2019-04-16] MEDS: LATANOPROST 0.005% OPHTH DROPS 2.5ML EACHEYE SCH (20:35)
[2019-04-16 20:49] LABS: CLARITY URINE CLOUDY (CLEAR); COLOR URINE YELLOW (YELLOW); KETONES URINE NEGATIVE (NEGATIVE); LEUKOCYTE ESTERASE URINE 2+ (NEGATIVE); NITRITE URINE NEGATIVE (NEGATIVE); OCCULT BLOOD URINE NEGATIVE (NEGATIVE); PH URINE 5.5 (4.5-8.0); PROTEIN URINE NEGATIVE (NEGATIVE); SPECIFIC GRAVITY URINE 1.011 (1.005-1.030); UROBILINOGEN URINE 0.2 E.U./dL (0.2-1.0)
[2019-04-16] MEDS: INSULIN GLARGINE UD 100 UNITS/ML SYR SUBCUT SCH (22:12)
[2019-04-17] MEDS: HYDROCODONE/ACETAMINOPHEN 10/325MG TABLET PO PRN ×5 (02:14→21:11)
[2019-04-17] MEDS: BLOOD SUGAR DIAGNOSTIC STRIP TEST SCH ×4 (06:20→20:42)
[2019-04-17] MEDS: INSULIN LISPRO 100 UNITS/ML SUBCUT SCH ×4 (06:20→21:17)
[2019-04-17 08:00] VITALS: BP 106/54
[2019-04-17] MEDS: FERROUS SULFATE 325MG TABLET PO SCH ×3 (08:49→17:06)
[2019-04-17] MEDS: METFORMIN HCL 500MG TABLET PO SCH ×2 (08:49→17:06)
[2019-04-17] MEDS: FAMOTIDINE 20MG TABLET PO SCH ×2 (08:49→20:42)
[2019-04-17] MEDS: CITALOPRAM HYDROBROMIDE 10MG TABLET PO SCH (08:50)
[2019-04-17] MEDS: LINAGLIPTIN 5MG TABLET PO SCH (08:50)
[2019-04-17] MEDS: APIXABAN 5 MG TABLET PO SCH ×2 (08:51→20:41)
[2019-04-17] MEDS: METHIMAZOLE 5MG TABLET PO SCH ×2 (08:51→17:06)
[2019-04-17] MEDS: FUROSEMIDE 40MG TABLET PO SCH (08:51)
[2019-04-17] MEDS: SPIRONOLACTONE 25MG TABLET PO SCH (08:51)
[2019-04-17] MEDS: DORZOLAMIDE 2% OPHTH 10 ML BOTTLE EACHEYE SCH ×2 (08:52→17:05)
[2019-04-17] MEDS: MUPIROCIN 2% OINT 22GM NS SCH ×2 (08:52→20:42)
[2019-04-17] MEDS: FLUTICASONE/VILANTEROL 200-25 BLST.W.DEV ORI SCH (08:52)
[2019-04-17] MEDS: UMECLIDINIUM BROMIDE 1 INH BLST.W.DEV IH SCH (08:52)
[2019-04-17] MEDS: CYANOCOBALAMIN 1000MCG/ML VIAL IM SCH (08:53)
[2019-04-17] MEDS: DILTIAZEM HCL 180MG CAPSULE CD 24HR PO SCH (09:00)
[2019-04-17] MEDS: LETAIRIS 10 MG PO SCH (09:00)
[2019-04-17] MEDS: DOCUSATE SODIUM 250MG CAPSULE PO SCH ×2 (09:00→17:00)
[2019-04-17] MEDS: ACETAMINOPHEN 325MG TABLET PO PRN (14:01)
[2019-04-17 20:00] VITALS: BP 133/73
[2019-04-17] MEDS: LATANOPROST 0.005% OPHTH DROPS 2.5ML EACHEYE SCH (20:42)
[2019-04-17] MEDS: INSULIN GLARGINE UD 100 UNITS/ML SYR SUBCUT SCH (21:18)
[2019-04-18] MEDS: HYDROCODONE/ACETAMINOPHEN 10/325MG TABLET PO PRN ×5 (04:36→22:31)
[2019-04-18] MEDS: INSULIN LISPRO 100 UNITS/ML SUBCUT SCH ×4 (06:09→21:00)
[2019-04-18] MEDS: BLOOD SUGAR DIAGNOSTIC STRIP TEST SCH ×4 (06:09→21:33)
[2019-04-18 07:57] LABS: CHLORIDE 102 mEq/L (98-107)
[2019-04-18 08:00] VITALS: BP 105/66
[2019-04-18 08:13] LABS: HEMATOCRIT. 27.8 % (36.0-48.0); HEMOGLOBIN. 8.5 g/dL (12.0-16.0); MEAN CORPUSCULAR HEMOGLOBIN 21.8 pg (28.0-32.0); MEAN PLATELET VOLUME 8.6 fl (7.4-10.4); PLATELET 347 x1000/uL (130-400); RED BLOOD CELL COUNT 3.91 mill/uL (4.2-5.4); RED CELL DISTRIBUTION WIDTH 29.1 % (11.6-14.6)
[2019-04-18] MEDS: FLUTICASONE/VILANTEROL 200-25 BLST.W.DEV ORI SCH (08:31)
[2019-04-18] MEDS: UMECLIDINIUM BROMIDE 1 INH BLST.W.DEV IH SCH (08:32)
[2019-04-18] MEDS: DORZOLAMIDE 2% OPHTH 10 ML BOTTLE EACHEYE SCH ×2 (08:32→16:54)
[2019-04-18] MEDS: MUPIROCIN 2% OINT 22GM NS SCH ×2 (08:33→21:33)
[2019-04-18] MEDS: LETAIRIS 10 MG PO SCH (08:33)
[2019-04-18] MEDS: CITALOPRAM HYDROBROMIDE 10MG TABLET PO SCH (08:34)
[2019-04-18] MEDS: LINAGLIPTIN 5MG TABLET PO SCH (08:34)
[2019-04-18] MEDS: SPIRONOLACTONE 25MG TABLET PO SCH (08:35)
[2019-04-18] MEDS: METFORMIN HCL 500MG TABLET PO SCH ×2 (08:36→16:54)
[2019-04-18] MEDS: ASCORBIC ACID 500 MG TABLET PO SCH (08:36)
[2019-04-18] MEDS: FUROSEMIDE 40MG TABLET PO SCH (08:36)
[2019-04-18] MEDS: METHIMAZOLE 5MG TABLET PO SCH ×2 (08:36→16:54)
[2019-04-18] MEDS: DOCUSATE SODIUM 250MG CAPSULE PO SCH ×2 (08:36→16:54)
[2019-04-18] MEDS: FERROUS SULFATE 325MG TABLET PO SCH ×3 (08:37→16:54)
[2019-04-18] MEDS: DILTIAZEM HCL 120MG CAPSULE CD 24HR PO SCH (08:37)
[2019-04-18] MEDS: FAMOTIDINE 20MG TABLET PO SCH ×2 (08:37→21:33)
[2019-04-18] MEDS: CYANOCOBALAMIN 1000MCG/ML VIAL IM SCH (09:00)
[2019-04-18] MEDS: APIXABAN 5 MG TABLET PO SCH ×2 (10:21→21:33)
[2019-04-18] MEDS: LEVOFLOXACIN 500MG TABLET PO SCH (17:18)
[2019-04-18 17:49] LABS: PLATELET ESTIMATE NORMAL
[2019-04-18 20:00] VITALS: BP 119/65
[2019-04-18] MEDS: LATANOPROST 0.005% OPHTH DROPS 2.5ML EACHEYE SCH (21:32)
[2019-04-18] MEDS: INSULIN GLARGINE UD 100 UNITS/ML SYR SUBCUT SCH (22:04)
[2019-04-19] MEDS: HYDROCODONE/ACETAMINOPHEN 10/325MG TABLET PO PRN ×5 (04:44→21:47)
[2019-04-19] MEDS: BLOOD SUGAR DIAGNOSTIC STRIP TEST SCH ×4 (06:22→21:29)
[2019-04-19] MEDS: INSULIN LISPRO 100 UNITS/ML SUBCUT SCH ×4 (06:24→21:52)
[2019-04-19 08:00] VITALS: BP 111/66
[2019-04-19] MEDS: MUPIROCIN 2% OINT 22GM NS SCH ×2 (08:39→21:27)
[2019-04-19] MEDS: UMECLIDINIUM BROMIDE 1 INH BLST.W.DEV IH SCH (08:39)
[2019-04-19] MEDS: FLUTICASONE/VILANTEROL 200-25 BLST.W.DEV ORI SCH (08:39)
[2019-04-19] MEDS: LETAIRIS 10 MG PO SCH (08:39)
[2019-04-19] MEDS: METHIMAZOLE 5MG TABLET PO SCH ×2 (08:40→16:28)
[2019-04-19] MEDS: DORZOLAMIDE 2% OPHTH 10 ML BOTTLE EACHEYE SCH ×2 (08:40→16:28)
[2019-04-19] MEDS: APIXABAN 5 MG TABLET PO SCH ×2 (08:40→21:26)
[2019-04-19] MEDS: METFORMIN HCL 500MG TABLET PO SCH ×2 (08:41→16:27)
[2019-04-19] MEDS: FUROSEMIDE 40MG TABLET PO SCH (08:41)
[2019-04-19] MEDS: LINAGLIPTIN 5MG TABLET PO SCH (08:41)
[2019-04-19] MEDS: SPIRONOLACTONE 25MG TABLET PO SCH (08:41)
[2019-04-19] MEDS: ASCORBIC ACID 500 MG TABLET PO SCH (08:41)
[2019-04-19] MEDS: DOCUSATE SODIUM 250MG CAPSULE PO SCH ×2 (08:41→16:28)
[2019-04-19] MEDS: FERROUS SULFATE 325MG TABLET PO SCH ×3 (08:41→16:28)
[2019-04-19] MEDS: FAMOTIDINE 20MG TABLET PO SCH ×2 (08:41→21:43)
[2019-04-19] MEDS: CITALOPRAM HYDROBROMIDE 10MG TABLET PO SCH (08:41)
[2019-04-19] MEDS: DILTIAZEM HCL 120MG CAPSULE CD 24HR PO SCH (08:41)
[2019-04-19] MEDS ORDERED: CYANOCOBALAMIN 1000MCG/ML VIAL IM SCH (09:00)
[2019-04-19] MEDS: LEVOFLOXACIN 500MG TABLET PO SCH (10:19)
[2019-04-19 12:06] LABS: TOTAL IRON BINDING CAPACITY 360 ug/dL (250-450)
[2019-04-19] MEDS: PREDNISONE 20MG TABLET PO SCH (16:27)
[2019-04-19] MEDS: CEPHALEXIN 250MG CAPSULE PO SCH (17:32)
[2019-04-19 20:00] VITALS: BP 109/50
[2019-04-19] MEDS: LATANOPROST 0.005% OPHTH DROPS 2.5ML EACHEYE SCH (21:29)
[2019-04-19] MEDS: INSULIN GLARGINE UD 100 UNITS/ML SYR SUBCUT SCH (21:59)
[2019-04-20] MEDS: CEPHALEXIN 250MG CAPSULE PO SCH ×3 (00:24→11:35)
[2019-04-20] MEDS: HYDROCODONE/ACETAMINOPHEN 10/325MG TABLET PO PRN ×5 (02:22→20:13)
[2019-04-20] MEDS: FERROUS SULFATE 325MG TABLET PO SCH ×2 (06:37→16:04)
[2019-04-20] MEDS: BLOOD SUGAR DIAGNOSTIC STRIP TEST SCH ×4 (06:37→20:57)
[2019-04-20 07:31] LABS: BASOPHILS % 0.2 % (0.0-2.0); EOSINOPHILS % 0.4 % (0.0-5.0); HEMATOCRIT. 27.3 % (36.0-48.0); HEMOGLOBIN. 8.5 g/dL (12.0-16.0); LYMPHOCYTES % 12.3 % (20.0-50.0); MEAN CORPUSCULAR HEMOGLOBIN 22.1 pg (28.0-32.0); MEAN CORPUSCULAR VOLUME 71.2 fL (81.0-99.0); MEAN PLATELET VOLUME 8.6 fl (7.4-10.4); MONOCYTES % 7.8 % (2.0-8.0); NEUTROPHILS % 79.3 % (40.0-76.0); PLATELET 341 x1000/uL (130-400); RED BLOOD CELL COUNT 3.84 mill/uL (4.2-5.4); RED CELL DISTRIBUTION WIDTH 29.8 % (11.6-14.6)
[2019-04-20 07:45] LABS: CHLORIDE 101 mEq/L (98-107)
[2019-04-20 08:31] VITALS: BP 122/85
[2019-04-20] MEDS: INSULIN LISPRO 100 UNITS/ML SUBCUT SCH ×4 (09:00→21:00)
[2019-04-20] MEDS: ASCORBIC ACID 500 MG TABLET PO SCH ×4 (09:00→16:04)
[2019-04-20] MEDS: MUPIROCIN 2% OINT 22GM NS SCH ×2 (09:35→20:50)
[2019-04-20] MEDS: DORZOLAMIDE 2% OPHTH 10 ML BOTTLE EACHEYE SCH ×2 (09:35→16:04)
[2019-04-20] MEDS: FLUTICASONE/VILANTEROL 200-25 BLST.W.DEV ORI SCH (09:35)
[2019-04-20] MEDS: UMECLIDINIUM BROMIDE 1 INH BLST.W.DEV IH SCH (09:35)
[2019-04-20] MEDS: METHIMAZOLE 5MG TABLET PO SCH ×2 (09:36→16:04)
[2019-04-20] MEDS: METFORMIN HCL 500MG TABLET PO SCH ×2 (09:36→16:04)
[2019-04-20] MEDS: SPIRONOLACTONE 25MG TABLET PO SCH (09:36)
[2019-04-20] MEDS: LETAIRIS 10 MG PO SCH (09:36)
[2019-04-20] MEDS: DILTIAZEM HCL 120MG CAPSULE CD 24HR PO SCH (09:37)
[2019-04-20] MEDS: DOCUSATE SODIUM 250MG CAPSULE PO SCH ×2 (09:37→16:04)
[2019-04-20] MEDS: LINAGLIPTIN 5MG TABLET PO SCH (09:37)
[2019-04-20] MEDS: FAMOTIDINE 20MG TABLET PO SCH ×2 (09:37→20:14)
[2019-04-20] MEDS: FUROSEMIDE 40MG TABLET PO SCH (09:37)
[2019-04-20] MEDS: PREDNISONE 20MG TABLET PO SCH (09:37)
[2019-04-20] MEDS: APIXABAN 5 MG TABLET PO SCH ×2 (09:37→20:14)
[2019-04-20] MEDS: CITALOPRAM HYDROBROMIDE 10MG TABLET PO SCH (11:36)
[2019-04-20] MEDS: LEVOFLOXACIN 500MG TABLET PO SCH (11:37)
[2019-04-20] MEDS ORDERED: HYDR-4005 MT (14:55)
[2019-04-20] MEDS ORDERED: METF-414 PO (14:55)
[2019-04-20] MEDS ORDERED: TRAM50TA MT (14:55)
[2019-04-20 17:06] LABS: 25-HYDROXY VITAMIN D3 6.2 ng/mL (.)
[2019-04-20 20:00] VITALS: BP 129/67
[2019-04-20] MEDS: LATANOPROST 0.005% OPHTH DROPS 2.5ML EACHEYE SCH (21:05)
[2019-04-20] MEDS: INSULIN GLARGINE UD 100 UNITS/ML SYR SUBCUT SCH (21:39)
[2019-04-21] MEDS: HYDROCODONE/ACETAMINOPHEN 10/325MG TABLET PO PRN ×5 (04:34→19:47)
[2019-04-21] MEDS: FERROUS SULFATE 325MG TABLET PO SCH ×2 (06:32→17:49)
[2019-04-21] MEDS: BLOOD SUGAR DIAGNOSTIC STRIP TEST SCH ×4 (06:34→21:17)
[2019-04-21 08:00] VITALS: BP 122/85
[2019-04-21] MEDS: INSULIN LISPRO 100 UNITS/ML SUBCUT SCH ×4 (08:49→22:41)
[2019-04-21] MEDS: LETAIRIS 10 MG PO SCH (08:52)
[2019-04-21] MEDS: DORZOLAMIDE 2% OPHTH 10 ML BOTTLE EACHEYE SCH ×2 (08:52→17:50)
[2019-04-21] MEDS: UMECLIDINIUM BROMIDE 1 INH BLST.W.DEV IH SCH (08:53)
[2019-04-21] MEDS: METFORMIN HCL 500MG TABLET PO SCH ×2 (08:53→17:49)
[2019-04-21] MEDS: FLUTICASONE/VILANTEROL 200-25 BLST.W.DEV ORI SCH (08:53)
[2019-04-21] MEDS: FAMOTIDINE 20MG TABLET PO SCH ×2 (08:53→21:17)
[2019-04-21] MEDS: CITALOPRAM HYDROBROMIDE 10MG TABLET PO SCH (08:54)
[2019-04-21] MEDS: METHIMAZOLE 5MG TABLET PO SCH ×2 (08:54→17:49)
[2019-04-21] MEDS: APIXABAN 5 MG TABLET PO SCH ×2 (08:54→21:17)
[2019-04-21] MEDS: ASCORBIC ACID 500 MG TABLET PO SCH ×3 (08:54→17:49)
[2019-04-21] MEDS: FUROSEMIDE 40MG TABLET PO SCH (08:54)
[2019-04-21] MEDS: DOCUSATE SODIUM 250MG CAPSULE PO SCH ×2 (08:54→17:49)
[2019-04-21] MEDS: PREDNISONE 20MG TABLET PO SCH (08:55)
[2019-04-21] MEDS: LINAGLIPTIN 5MG TABLET PO SCH (08:55)
[2019-04-21] MEDS: SPIRONOLACTONE 25MG TABLET PO SCH (08:56)
[2019-04-21] MEDS: DILTIAZEM HCL 120MG CAPSULE CD 24HR PO SCH (08:56)
[2019-04-21] MEDS: LEVOFLOXACIN 500MG TABLET PO SCH (10:26)
[2019-04-21] MEDS: ACETAMINOPHEN 325MG TABLET PO PRN (13:52)
[2019-04-21] MEDS: IPRATROPIUM/ALBUTEROL 0.5-3(2.5)MG/3ML NEB HHN PRN (14:06)
[2019-04-21] MEDS ORDERED: ERGOCALCIFEROL 50000UNITS CAPSULE PO SCH (16:00)
[2019-04-21 16:18] LABS: MEAN CORPUSCULAR HEMOGLOBIN 22.2 pg (28.0-32.0); MEAN PLATELET VOLUME 8.4 fl (7.4-10.4); PLATELET 310 x1000/uL (130-400); RED BLOOD CELL COUNT 3.16 mill/uL (4.2-5.4); RED CELL DISTRIBUTION WIDTH 30.1 % (11.6-14.6)
[2019-04-21 16:51] LABS: HEMATOCRIT. 22.7 % (36.0-48.0)
[2019-04-21 18:40] LABS: PLATELET ESTIMATE NORMAL
[2019-04-21 20:00] VITALS: BP 110/58
[2019-04-21] MEDS: LATANOPROST 0.005% OPHTH DROPS 2.5ML EACHEYE SCH (21:18)
[2019-04-21 22:28] VITALS: BP 101/54
[2019-04-21] MEDS: INSULIN GLARGINE UD 100 UNITS/ML SYR SUBCUT SCH (22:40)
[2019-04-21 22:45] VITALS: BP 105/51
[2019-04-21 23:48] VITALS: BP 108/59
[2019-04-22] VITALS (9 sets, daily range): BP systolic 99–123; BP diastolic 53–64
[2019-04-22] MEDS: HYDROCODONE/ACETAMINOPHEN 10/325MG TABLET PO PRN ×5 (01:45→20:35)
[2019-04-22] MEDS: BLOOD SUGAR DIAGNOSTIC STRIP TEST SCH ×4 (06:39→20:35)
[2019-04-22] MEDS: FERROUS SULFATE 325MG TABLET PO SCH ×2 (06:40→16:54)
[2019-04-22] MEDS: INSULIN LISPRO 100 UNITS/ML SUBCUT SCH ×4 (06:45→20:59)
[2019-04-22 08:01] LABS: HEMATOCRIT. 26.8 % (36.0-48.0); HEMOGLOBIN. 8.5 g/dL (12.0-16.0); MEAN CORPUSCULAR HEMOGLOBIN 23.1 pg (28.0-32.0); MEAN CORPUSCULAR VOLUME 73.1 fL (81.0-99.0); MEAN PLATELET VOLUME 7.1 fl (7.4-10.4); PLATELET 287 x1000/uL (130-400); RED BLOOD CELL COUNT 3.67 mill/uL (4.2-5.4); RED CELL DISTRIBUTION WIDTH 28.2 % (11.6-14.6)
[2019-04-22] MEDS: PREDNISONE 20MG TABLET PO SCH (08:10)
[2019-04-22] MEDS: CITALOPRAM HYDROBROMIDE 10MG TABLET PO SCH (08:10)
[2019-04-22] MEDS: DILTIAZEM HCL 120MG CAPSULE CD 24HR PO SCH (08:11)
[2019-04-22] MEDS: METFORMIN HCL 500MG TABLET PO SCH ×2 (08:11→16:54)
[2019-04-22] MEDS: METHIMAZOLE 5MG TABLET PO SCH ×2 (08:11→16:54)
[2019-04-22] MEDS: DOCUSATE SODIUM 250MG CAPSULE PO SCH ×2 (08:11→16:54)
[2019-04-22] MEDS: ASCORBIC ACID 500 MG TABLET PO SCH ×3 (08:11→16:54)
[2019-04-22] MEDS: FAMOTIDINE 20MG TABLET PO SCH ×2 (08:11→20:33)
[2019-04-22] MEDS: LINAGLIPTIN 5MG TABLET PO SCH (08:12)
[2019-04-22] MEDS: LETAIRIS 10 MG PO SCH (08:12)
[2019-04-22] MEDS: SPIRONOLACTONE 25MG TABLET PO SCH (08:12)
[2019-04-22] MEDS: FUROSEMIDE 40MG TABLET PO SCH (08:12)
[2019-04-22] MEDS: DORZOLAMIDE 2% OPHTH 10 ML BOTTLE EACHEYE SCH ×2 (08:12→16:55)
[2019-04-22] MEDS: UMECLIDINIUM BROMIDE 1 INH BLST.W.DEV IH SCH (08:13)
[2019-04-22] MEDS: FLUTICASONE/VILANTEROL 200-25 BLST.W.DEV ORI SCH (08:13)
[2019-04-22 10:25] LABS: NUCLEATED RED BLOOD CELLS 1 /100 WBC; PLATELET ESTIMATE NORMAL
[2019-04-22] MEDS: LEVOFLOXACIN 500MG TABLET PO SCH (11:00)
[2019-04-22] MEDS ORDERED: IOHEXOL-300 100 ML BOTTLE ONE (15:54)
[2019-04-22] MEDS: LATANOPROST 0.005% OPHTH DROPS 2.5ML EACHEYE SCH (20:35)
[2019-04-22] MEDS ORDERED: APIXABAN 2.5 MG TABLET PO SCH (21:00)
[2019-04-22] MEDS: INSULIN GLARGINE UD 100 UNITS/ML SYR SUBCUT SCH (21:57)
[2019-04-23] MEDS: HYDROCODONE/ACETAMINOPHEN 10/325MG TABLET PO PRN ×6 (02:16→22:54)
[2019-04-23 06:12] LABS: HEMATOCRIT. 25.5 % (36.0-48.0); MEAN CORPUSCULAR HEMOGLOBIN 23.3 pg (28.0-32.0); MEAN CORPUSCULAR VOLUME 74.1 fL (81.0-99.0); MEAN PLATELET VOLUME 7.3 fl (7.4-10.4); PLATELET 252 x1000/uL (130-400); RED BLOOD CELL COUNT 3.44 mill/uL (4.2-5.4); RED CELL DISTRIBUTION WIDTH 29.7 % (11.6-14.6)
[2019-04-23] MEDS: FERROUS SULFATE 325MG TABLET PO SCH ×2 (06:25→16:26)
[2019-04-23] MEDS: BLOOD SUGAR DIAGNOSTIC STRIP TEST SCH ×4 (06:25→21:00)
[2019-04-23] MEDS: INSULIN LISPRO 100 UNITS/ML SUBCUT SCH ×4 (07:42→22:01)
[2019-04-23 08:04] VITALS: BP 105/65
[2019-04-23] MEDS: CITALOPRAM HYDROBROMIDE 10MG TABLET PO SCH (08:13)
[2019-04-23] MEDS: FAMOTIDINE 20MG TABLET PO SCH ×2 (08:14→21:56)
[2019-04-23] MEDS: DOCUSATE SODIUM 250MG CAPSULE PO SCH ×2 (08:14→16:28)
[2019-04-23] MEDS: LINAGLIPTIN 5MG TABLET PO SCH (08:14)
[2019-04-23] MEDS: SPIRONOLACTONE 25MG TABLET PO SCH (08:14)
[2019-04-23] MEDS: FUROSEMIDE 40MG TABLET PO SCH (08:14)
[2019-04-23] MEDS: METFORMIN HCL 500MG TABLET PO SCH ×2 (08:14→16:28)
[2019-04-23] MEDS: METHIMAZOLE 5MG TABLET PO SCH ×2 (08:14→16:26)
[2019-04-23] MEDS: PREDNISONE 20MG TABLET PO SCH (08:14)
[2019-04-23] MEDS: LETAIRIS 10 MG PO SCH (08:15)
[2019-04-23] MEDS: UMECLIDINIUM BROMIDE 1 INH BLST.W.DEV IH SCH (08:15)
[2019-04-23] MEDS: DORZOLAMIDE 2% OPHTH 10 ML BOTTLE EACHEYE SCH ×2 (08:15→16:28)
[2019-04-23] MEDS: FLUTICASONE/VILANTEROL 200-25 BLST.W.DEV ORI SCH (08:15)
[2019-04-23] MEDS: ASCORBIC ACID 500 MG TABLET PO SCH ×4 (08:15→16:32)
[2019-04-23] MEDS: DILTIAZEM HCL 120MG CAPSULE CD 24HR PO SCH (08:20)
[2019-04-23] MEDS: LACTULOSE 20G/30ML UDC PO SCH ×3 (11:20→21:55)
[2019-04-23] MEDS: LEVOFLOXACIN 500MG TABLET PO SCH (11:20)
[2019-04-23] MEDS: ACETAMINOPHEN 325MG TABLET PO PRN ×2 (13:04→18:00)
[2019-04-23 13:17] LABS: PLATELET ESTIMATE NORMAL
[2019-04-23 20:00] VITALS: BP 118/67
[2019-04-23] MEDS: LATANOPROST 0.005% OPHTH DROPS 2.5ML EACHEYE SCH (21:00)
[2019-04-23] MEDS: INSULIN GLARGINE UD 100 UNITS/ML SYR SUBCUT SCH (22:58)
[2019-04-24] MEDS: HYDROCODONE/ACETAMINOPHEN 10/325MG TABLET PO PRN ×5 (04:50→20:32)
[2019-04-24] MEDS: FERROUS SULFATE 325MG TABLET PO SCH ×2 (06:16→16:09)
[2019-04-24] MEDS: BLOOD SUGAR DIAGNOSTIC STRIP TEST SCH ×4 (06:36→20:30)
[2019-04-24] MEDS: INSULIN LISPRO 100 UNITS/ML SUBCUT SCH ×4 (06:36→20:30)
[2019-04-24 06:54] LABS: BASOPHILS % 0.3 % (0.0-2.0); EOSINOPHILS % 0.5 % (0.0-5.0); HEMOGLOBIN. 8.4 g/dL (12.0-16.0); LYMPHOCYTES % 14.4 % (20.0-50.0); MEAN CORPUSCULAR HEMOGLOBIN 23.9 pg (28.0-32.0); MEAN CORPUSCULAR VOLUME 74.3 fL (81.0-99.0); MEAN PLATELET VOLUME 8.4 fl (7.4-10.4); NEUTROPHILS % 75.8 % (40.0-76.0); PLATELET 256 x1000/uL (130-400); RED CELL DISTRIBUTION WIDTH 29.5 % (11.6-14.6)
[2019-04-24 07:29] LABS: CHLORIDE 102 mEq/L (98-107)
[2019-04-24 07:43] LABS: PHOSPHORUS 3.6 mg/dL (2.5-4.9)
[2019-04-24 07:45] LABS: T4 FREE 0.65 ng/dL (0.76-1.46)
[2019-04-24 08:00] VITALS: BP 126/72
[2019-04-24] MEDS: UMECLIDINIUM BROMIDE 1 INH BLST.W.DEV IH SCH (09:11)
[2019-04-24] MEDS: FLUTICASONE/VILANTEROL 200-25 BLST.W.DEV ORI SCH (09:12)
[2019-04-24] MEDS: LETAIRIS 10 MG PO SCH (09:12)
[2019-04-24] MEDS: DORZOLAMIDE 2% OPHTH 10 ML BOTTLE EACHEYE SCH ×2 (09:13→16:13)
[2019-04-24] MEDS: SPIRONOLACTONE 25MG TABLET PO SCH (09:14)
[2019-04-24] MEDS: FUROSEMIDE 40MG TABLET PO SCH (09:14)
[2019-04-24] MEDS: LINAGLIPTIN 5MG TABLET PO SCH (09:14)
[2019-04-24] MEDS: PREDNISONE 20MG TABLET PO SCH (09:14)
[2019-04-24] MEDS: METHIMAZOLE 5MG TABLET PO SCH ×2 (09:14→16:09)
[2019-04-24] MEDS: METFORMIN HCL 500MG TABLET PO SCH ×2 (09:14→16:09)
[2019-04-24] MEDS: CITALOPRAM HYDROBROMIDE 10MG TABLET PO SCH (09:14)
[2019-04-24] MEDS: DOCUSATE SODIUM 250MG CAPSULE PO SCH ×2 (09:15→16:09)
[2019-04-24] MEDS: ASCORBIC ACID 500 MG TABLET PO SCH ×3 (09:15→16:09)
[2019-04-24] MEDS: DILTIAZEM HCL 120MG CAPSULE CD 24HR PO SCH (09:15)
[2019-04-24] MEDS: FAMOTIDINE 20MG TABLET PO SCH ×2 (09:15→20:29)
[2019-04-24] MEDS: LEVOFLOXACIN 500MG TABLET PO SCH (11:27)
[2019-04-24] MEDS: IPRATROPIUM/ALBUTEROL 0.5-3(2.5)MG/3ML NEB HHN PRN (13:23)
[2019-04-24 20:00] VITALS: BP 117/74
[2019-04-24] MEDS: LATANOPROST 0.005% OPHTH DROPS 2.5ML EACHEYE SCH (20:29)
[2019-04-24] MEDS: INSULIN GLARGINE UD 100 UNITS/ML SYR SUBCUT SCH (21:53)
[2019-04-25] MEDS: HYDROCODONE/ACETAMINOPHEN 10/325MG TABLET PO PRN ×4 (02:05→14:56)
[2019-04-25] MEDS: FERROUS SULFATE 325MG TABLET PO SCH ×2 (06:10→16:59)
[2019-04-25 06:27] LABS: BASOPHILS % 0.4 % (0.0-2.0); EOSINOPHILS % 0.8 % (0.0-5.0); HEMATOCRIT. 26.2 % (36.0-48.0); HEMOGLOBIN. 8.2 g/dL (12.0-16.0); LYMPHOCYTES % 13.1 % (20.0-50.0); MEAN CORPUSCULAR HEMOGLOBIN 23.3 pg (28.0-32.0); MEAN CORPUSCULAR VOLUME 74.8 fL (81.0-99.0); MEAN PLATELET VOLUME 7.1 fl (7.4-10.4); MONOCYTES % 7.7 % (2.0-8.0); PLATELET 261 x1000/uL (130-400); RED CELL DISTRIBUTION WIDTH 30.9 % (11.6-14.6)
[2019-04-25] MEDS: BLOOD SUGAR DIAGNOSTIC STRIP TEST SCH ×3 (06:34→17:02)
[2019-04-25] MEDS: INSULIN LISPRO 100 UNITS/ML SUBCUT SCH ×3 (07:24→17:01)
[2019-04-25 08:00] VITALS: BP 159/68
[2019-04-25] MEDS: LETAIRIS 10 MG PO SCH (08:48)
[2019-04-25] MEDS: DORZOLAMIDE 2% OPHTH 10 ML BOTTLE EACHEYE SCH ×2 (08:48→17:02)
[2019-04-25] MEDS: FLUTICASONE/VILANTEROL 200-25 BLST.W.DEV ORI SCH (08:49)
[2019-04-25] MEDS: UMECLIDINIUM BROMIDE 1 INH BLST.W.DEV IH SCH (08:49)
[2019-04-25] MEDS: ACETAMINOPHEN 325MG TABLET PO PRN (08:50)
[2019-04-25] MEDS: LINAGLIPTIN 5MG TABLET PO SCH (08:51)
[2019-04-25] MEDS: FUROSEMIDE 40MG TABLET PO SCH (08:51)
[2019-04-25] MEDS: ASCORBIC ACID 500 MG TABLET PO SCH ×3 (08:51→16:59)
[2019-04-25] MEDS: SPIRONOLACTONE 25MG TABLET PO SCH (08:51)
[2019-04-25] MEDS: DILTIAZEM HCL 120MG CAPSULE CD 24HR PO SCH (08:51)
[2019-04-25] MEDS: CITALOPRAM HYDROBROMIDE 10MG TABLET PO SCH (08:51)
[2019-04-25] MEDS: PREDNISONE 20MG TABLET PO SCH (08:51)
[2019-04-25] MEDS: DOCUSATE SODIUM 250MG CAPSULE PO SCH ×2 (08:51→16:59)
[2019-04-25] MEDS: FAMOTIDINE 20MG TABLET PO SCH (08:52)
[2019-04-25] MEDS: METHIMAZOLE 5MG TABLET PO SCH ×2 (08:52→16:59)
[2019-04-25] MEDS: METFORMIN HCL 500MG TABLET PO SCH ×2 (08:52→16:59)
[2019-04-25] MEDS: LEVOFLOXACIN 500MG TABLET PO SCH (10:52)
[2019-04-25 13:17] VITALS: BP 126/68
[2019-04-25 14:56] VITALS: BP 120/63
[2019-04-25] MEDS: IPRATROPIUM/ALBUTEROL 0.5-3(2.5)MG/3ML NEB HHN PRN (17:19)
== END 2019-04-25 18:10 | disposition home health service (06) | DRG 190 ==
PROVIDERS: ADMIT Physical Medicine & Rehabilitation Spinal Cord Injury Medicine; ATTEND Internal Medicine Pulmonary Disease
PROC: 5A09557 Assistance with Respiratory Ventilation, Greater than 96 Consecutive Hours, Continuous Positive Airway Pressure (ICD-10-PCS; principal; 2019-04-13)
PROC: 30233N1 Transfusion of Nonautologous Red Blood Cells into Peripheral Vein, Percutaneous Approach (ICD-10-PCS; 2019-04-21)
DX: J44.1 Chronic obstructive pulmonary disease with (acute) exacerbation (principal); K29.51 Unspecified chronic gastritis with bleeding; J96.22 Acute and chronic respiratory failure with hypercapnia; I50.33 Acute on chronic diastolic (congestive) heart failure; J96.21 Acute and chronic respiratory failure with hypoxia; I48.20 Chronic atrial fibrillation, unspecified; G72.0 Drug-induced myopathy; N39.0 Urinary tract infection, site not specified; Z68.41 Body mass index [BMI] 40.0-44.9, adult; D50.9 Iron deficiency anemia, unspecified; R53.81 Other malaise; E66.01 Morbid (severe) obesity due to excess calories; E05.90 Thyrotoxicosis, unspecified without thyrotoxic crisis or storm; I11.0 Hypertensive heart disease with heart failure; E53.8 Deficiency of other specified B group vitamins; D72.829 Elevated white blood cell count, unspecified; Z79.52 Long term (current) use of systemic steroids; E11.9 Type 2 diabetes mellitus without complications; Z95.0 Presence of cardiac pacemaker; R26.9 Unspecified abnormalities of gait and mobility; B96.1 Klebsiella pneumoniae [K. pneumoniae] as the cause of diseases classified elsewhere; D35.01 Benign neoplasm of right adrenal gland; E55.9 Vitamin D deficiency, unspecified; F32.9 Major depressive disorder, single episode, unspecified; G31.84 Mild cognitive impairment of uncertain or unknown etiology; G47.33 Obstructive sleep apnea (adult) (pediatric); I27.29 Other secondary pulmonary hypertension; I35.0 Nonrheumatic aortic (valve) stenosis; K63.5 Polyp of colon; T38.0X5A Adverse effect of glucocorticoids and synthetic analogues, initial encounter; Z87.19 Personal history of other diseases of the digestive system; Z90.710 Acquired absence of both cervix and uterus; Z87.891 Personal history of nicotine dependence; Z22.322 Carrier or suspected carrier of Methicillin resistant Staphylococcus aureus; Z99.81 Dependence on supplemental oxygen; Y92.89 Other specified places as the place of occurrence of the external cause
CPT/HCPCS: 36415; 74177; 80048; 81003; 82270; 82306; 82728; 82962; 83540; 83550; 83735; 84100; 84134; 84439; 84443; 86850; 86900; 86920; 87077; 87186; 93970; 94640; 94660; 97110; 97116; 97162; 97167; 97530; 97535; J1815; J3420; J7040; J7512; J7620; P9016; Q9967

== ENCOUNTER 2019-07-13 14:03 | Inpatient (IN) | payer MEDICARE, MEDICAID ==
[~2019-07-13] VITALS: Ht 162.6 cm; Wt 116.1 kg
[~2019-07-13 14:03] MED LIST changes: -AMBR10TA3 PO; -APIX5TAB PO; +ASCO500C18 PO; -ASPI-1158 PO; -AZOPT EACHEYE; -BRIN8DRO EACHEYE; +CITA40TA22 PO; -CLOP75TA4 PO; +DILT120C88 PO; -DILT30TA38 PO; +DOCU250C69 PO; +ERGO500013 PO; -ESCI20TA36 PO; +FAMO-135 PO; +HYDR-4009 PO; +METF-414 PO; -METF-815 PO; +METH5TAB68 PO; -OMEP1CAP4 PO; +P20 PO; -PIOG30TA27 PO; -POTA-79 PO; -PRED10TA23 PO; -RISP2 PO; -TAP5 PO; +TOPUD PO; -TRAV2.5D EACHEYE
[2019-07-13] MEDS ORDERED: MAGNESIUM 2 G PREMIX 50 ML IV STA (14:19)
[2019-07-13] MEDS ORDERED: IPRATROPIUM BROMIDE (0.02%) 0.5MG/2.5ML NEB HHN STA (14:19)
[2019-07-13] MEDS ORDERED: METHYLPREDNISOLONE SOD SUCC 125 MG/2 ML VIAL IV STA (14:19)
[2019-07-13] MEDS ORDERED: ALBUTEROL (0.083%) 2.5MG/3ML NEB HHN STA (14:19)
[2019-07-13 15:13] LABS: HEMATOCRIT. 31.7 % (36.0-48.0); HEMOGLOBIN. 9.6 g/dL (12.0-16.0); MEAN CORPUSCULAR HEMOGLOBIN 21.9 pg (28.0-32.0); MEAN CORPUSCULAR VOLUME 72.5 fL (81.0-99.0); MEAN PLATELET VOLUME 7.2 fl (7.4-10.4); PLATELET 311 x1000/uL (130-400); RED BLOOD CELL COUNT 4.37 mill/uL (4.2-5.4); RED CELL DISTRIBUTION WIDTH 21.2 % (11.6-14.6)
[2019-07-13] MEDS ORDERED: ASPIRIN 81MG TABLET PO ONE (15:15)
[2019-07-13] MEDS ORDERED: HYDROCODONE/ACETAMINOPHEN 5/325MG TABLET PO ONE (15:15)
[2019-07-13 15:17] LABS: CHLORIDE 103 mEq/L (98-107)
[2019-07-13 15:20] LABS: INR 0.9; PROTHROMBIN TIME 9.6 sec (9.6-11.0)
[2019-07-13 15:41] LABS: PLATELET ESTIMATE NORMAL
[2019-07-13] MEDS ORDERED: LEVOFLOXACIN 500MG PREMIX 100 ML IV ONE (16:00)
[2019-07-13] MEDS ORDERED: ASPIRIN 81MG TABLET PO NR (16:00)
[2019-07-13 16:15] LABS: BG BASE EXCESS 0.8 mmol/L (-2.0-2.0); BG CARBOXYHEMOGLOBIN 0.3 % (0.5-1.5); BG DEOXYHEMOGLOBIN 1.5 % (0.0-5.0); BG HCO3 ACT 25.7 mmol/L (22.0-26.0); BG METHEMOGLOBIN 0.2 % (0.0-1.5); BG OXYGEN SATURATION 98.5 % (92.0-98.5); BG PCO2 42.6 mmHg (35.0-45.0); BG PH 7.399 (7.350-7.450); BG PO2 144.5 mmHg (75.0-100.0); BG SAMPLE SITE RIGHT BRACHIAL; BG TOTAL HEMOGLOBIN 10.1 g/dL (12.0-18.0); BG VENT MODE MASK - BIPAP; BG VENT RATE 12 set
[2019-07-13 17:27] VITALS: BP 130/74
[2019-07-13] MEDS: FUROSEMIDE 40MG/4ML VIAL IVP SCH (18:42)
[2019-07-13] MEDS: APIXABAN 5 MG TABLET PO SCH (18:44)
[2019-07-13 20:00] VITALS: BP 136/76
[2019-07-13] MEDS: HYDROCODONE/ACETAMINOPHEN 10/325MG TABLET PO PRN (20:36)
[2019-07-13] MEDS ORDERED: DOCUSATE SODIUM 100MG CAPSULE PO PRN (20:45)
[2019-07-13] MEDS ORDERED: ACETAMINOPHEN 325MG TABLET PO PRN (20:45)
[2019-07-13] MEDS ORDERED: ATORVASTATIN CALCIUM 20MG TABLET PO SCH (21:00)
[2019-07-13] MEDS ORDERED: IPRATROPIUM BROMIDE (0.02%) 0.5MG/2.5ML NEB HHN PRN (21:00)
[2019-07-13 22:00] VITALS: BP 119/47
[2019-07-13] MEDS: ASCORBIC ACID 500 MG TABLET PO SCH (22:01)
[2019-07-13] MEDS: FUROSEMIDE 40MG TABLET PO SCH (22:01)
[2019-07-13] MEDS: FAMOTIDINE 20MG TABLET PO SCH (22:01)
[2019-07-13] MEDS: PREDNISONE 20MG TABLET PO SCH (22:01)
[2019-07-14] VITALS (12 sets, daily range): BP systolic 110–153; BP diastolic 53–90
[2019-07-14 00:25] LABS: CREATINE KINASE 29 IU/L (26-192); CREATINE KINASE MB FRACTION 1.5 ng/mL (0.5-3.6)
[2019-07-14] MEDS: IPRATROPIUM/ALBUTEROL 0.5-3(2.5)MG/3ML NEB HHN SCH ×6 (00:34→21:37)
[2019-07-14] MEDS: HYDROCODONE/ACETAMINOPHEN 10/325MG TABLET PO PRN ×5 (00:51→19:42)
[2019-07-14 06:16] LABS: MEAN CORPUSCULAR HEMOGLOBIN 22.2 pg (28.0-32.0); MEAN CORPUSCULAR VOLUME 71.2 fL (81.0-99.0); MEAN PLATELET VOLUME 7.7 fl (7.4-10.4); PLATELET 310 x1000/uL (130-400); RED BLOOD CELL COUNT 4.07 mill/uL (4.2-5.4); RED CELL DISTRIBUTION WIDTH 20.8 % (11.6-14.6)
[2019-07-14 06:41] LABS: CHLORIDE 102 mEq/L (98-107)
[2019-07-14 06:50] LABS: CREATINE KINASE 28 IU/L (26-192); T4 FREE 0.77 ng/dL (0.76-1.46)
[2019-07-14 06:52] LABS: CREATINE KINASE MB FRACTION 1.4 ng/mL (0.5-3.6)
[2019-07-14] MEDS ORDERED: DEXTROSE 50% WATER 50ML SYRINGE IV PRN (07:45)
[2019-07-14] MEDS: BLOOD SUGAR DIAGNOSTIC STRIP TEST SCH ×4 (08:21→20:33)
[2019-07-14] MEDS: SPIRONOLACTONE 25MG TABLET PO SCH (08:21)
[2019-07-14] MEDS: FERROUS SULFATE 325MG TABLET PO SCH ×3 (08:22→18:31)
[2019-07-14] MEDS: CITALOPRAM HYDROBROMIDE 10MG TABLET PO SCH (08:22)
[2019-07-14] MEDS: APIXABAN 5 MG TABLET PO SCH ×2 (08:22→18:31)
[2019-07-14] MEDS: PREDNISONE 20MG TABLET PO SCH (08:22)
[2019-07-14] MEDS: ASCORBIC ACID 500 MG TABLET PO SCH ×2 (08:23→20:32)
[2019-07-14] MEDS: MULTIVITAMINS,THER W-MINERALS TABLET PO SCH (08:23)
[2019-07-14] MEDS: DILTIAZEM HCL 120MG CAPSULE CD 24HR PO SCH (08:23)
[2019-07-14] MEDS: FUROSEMIDE 40MG TABLET PO SCH (08:24)
[2019-07-14] MEDS: INSULIN LISPRO 100 UNITS/ML SUBCUT SCH ×4 (08:25→20:45)
[2019-07-14] MEDS: FAMOTIDINE 20MG TABLET PO SCH ×2 (08:37→20:32)
[2019-07-14] MEDS: LINAGLIPTIN 5MG TABLET PO SCH (08:37)
[2019-07-14] MEDS ORDERED: METHIMAZOLE 5MG TABLET PO SCH (09:00)
[2019-07-14] MEDS: FUROSEMIDE 40MG/4ML VIAL IVP SCH (09:00)
[2019-07-14] MEDS ORDERED: ERGOCALCIFEROL 50000UNITS CAPSULE PO SCH (09:00)
[2019-07-14] MEDS ORDERED: IOHEXOL-350 100 ML BOTTLE ONE (11:03)
[2019-07-14 14:04] LABS: PLATELET ESTIMATE NORMAL
[2019-07-14] MEDS: GLIMEPIRIDE 1MG TABLET PO SCH (20:32)
[2019-07-14] MEDS ORDERED: INSULIN LISPRO 100 UNITS/ML SUBCUT NR (22:00)
[2019-07-15] VITALS (12 sets, daily range): BP systolic 110–155; BP diastolic 64–87
[2019-07-15] MEDS: IPRATROPIUM/ALBUTEROL 0.5-3(2.5)MG/3ML NEB HHN SCH ×6 (00:41→21:27)
[2019-07-15] MEDS: HYDROCODONE/ACETAMINOPHEN 10/325MG TABLET PO PRN ×5 (00:51→19:47)
[2019-07-15] MEDS: BLOOD SUGAR DIAGNOSTIC STRIP TEST SCH ×4 (07:30→21:32)
[2019-07-15] MEDS: INSULIN LISPRO 100 UNITS/ML SUBCUT SCH ×4 (08:00→20:42)
[2019-07-15] MEDS: GLIMEPIRIDE 1MG TABLET PO SCH (09:05)
[2019-07-15] MEDS: FUROSEMIDE 40MG/4ML VIAL IVP SCH (09:06)
[2019-07-15] MEDS: ASCORBIC ACID 500 MG TABLET PO SCH ×2 (09:06→20:10)
[2019-07-15] MEDS: PREDNISONE 20MG TABLET PO SCH (09:06)
[2019-07-15] MEDS: CITALOPRAM HYDROBROMIDE 10MG TABLET PO SCH (09:06)
[2019-07-15] MEDS: SPIRONOLACTONE 25MG TABLET PO SCH (09:07)
[2019-07-15] MEDS: FERROUS SULFATE 325MG TABLET PO SCH ×3 (09:07→17:46)
[2019-07-15] MEDS: DILTIAZEM HCL 120MG CAPSULE CD 24HR PO SCH (09:07)
[2019-07-15] MEDS: LINAGLIPTIN 5MG TABLET PO SCH (09:07)
[2019-07-15] MEDS: APIXABAN 5 MG TABLET PO SCH ×2 (09:07→17:47)
[2019-07-15] MEDS: FAMOTIDINE 20MG TABLET PO SCH ×2 (09:08→20:10)
[2019-07-15] MEDS: MULTIVITAMINS,THER W-MINERALS TABLET PO SCH (09:08)
[2019-07-15] MEDS: METFORMIN HCL 500MG TABLET PO SCH (09:08)
[2019-07-15] MEDS: METHIMAZOLE 5MG TABLET PO SCH (09:41)
[2019-07-15] MEDS ORDERED: AMBR10TA3 PO (16:35)
[2019-07-15] MEDS ORDERED: AZITHROMYCIN 500 MG TABLET PO SCH (18:00)
[2019-07-15] MEDS ORDERED: GLIMEPIRIDE 1MG TABLET PO SCH ×2 (18:00)
[2019-07-15] MEDS: AZITHROMYCIN 500 MG TABLET PO SCH (20:11)
[2019-07-15] MEDS: AMBRISENTAN 10 MG PO SCH (21:50)
[2019-07-16] VITALS (7 sets, daily range): BP systolic 103–141; BP diastolic 60–92
[2019-07-16] MEDS: HYDROCODONE/ACETAMINOPHEN 10/325MG TABLET PO PRN ×6 (00:37→21:55)
[2019-07-16] MEDS: IPRATROPIUM/ALBUTEROL 0.5-3(2.5)MG/3ML NEB HHN SCH ×5 (01:20→20:42)
[2019-07-16] MEDS: BLOOD SUGAR DIAGNOSTIC STRIP TEST SCH ×4 (05:49→20:21)
[2019-07-16 06:23] LABS: HEMOGLOBIN. 8.6 g/dL (12.0-16.0); MEAN CORPUSCULAR HEMOGLOBIN 21.9 pg (28.0-32.0); MEAN CORPUSCULAR VOLUME 71.4 fL (81.0-99.0); MEAN PLATELET VOLUME 7.5 fl (7.4-10.4); PLATELET 298 x1000/uL (130-400); RED BLOOD CELL COUNT 3.93 mill/uL (4.2-5.4)
[2019-07-16 06:39] LABS: CHLORIDE 103 mEq/L (98-107)
[2019-07-16] MEDS: DILTIAZEM HCL 120MG CAPSULE CD 24HR PO SCH (08:47)
[2019-07-16] MEDS: FERROUS SULFATE 325MG TABLET PO SCH ×3 (08:47→17:23)
[2019-07-16] MEDS: FUROSEMIDE 40MG/4ML VIAL IVP SCH (08:47)
[2019-07-16] MEDS: METFORMIN HCL 500MG TABLET PO SCH (08:47)
[2019-07-16] MEDS: SPIRONOLACTONE 25MG TABLET PO SCH (08:47)
[2019-07-16] MEDS: METHIMAZOLE 5MG TABLET PO SCH (08:47)
[2019-07-16] MEDS: ASCORBIC ACID 500 MG TABLET PO SCH ×2 (08:47→20:21)
[2019-07-16] MEDS: MULTIVITAMINS,THER W-MINERALS TABLET PO SCH (08:47)
[2019-07-16] MEDS: AZITHROMYCIN 500 MG TABLET PO SCH (08:48)
[2019-07-16] MEDS: FAMOTIDINE 20MG TABLET PO SCH ×2 (08:48→20:21)
[2019-07-16] MEDS: APIXABAN 5 MG TABLET PO SCH ×2 (08:48→17:23)
[2019-07-16] MEDS: CITALOPRAM HYDROBROMIDE 10MG TABLET PO SCH (08:54)
[2019-07-16] MEDS: PREDNISONE 20MG TABLET PO SCH (08:54)
[2019-07-16] MEDS: AMBRISENTAN 10 MG PO SCH (08:55)
[2019-07-16] MEDS: INSULIN LISPRO 100 UNITS/ML SUBCUT SCH ×4 (08:56→20:21)
[2019-07-16] MEDS: LINAGLIPTIN 5MG TABLET PO SCH (09:07)
[2019-07-16] MEDS: GLIMEPIRIDE 1MG TABLET PO SCH (17:23)
[2019-07-16 17:47] LABS: PLATELET ESTIMATE NORMAL
[2019-07-16] MEDS: INSULIN GLARGINE UD 100 UNITS/ML SYR SUBCUT SCH (21:56)
[2019-07-17] VITALS (9 sets, daily range): BP systolic 113–141; BP diastolic 58–92
[2019-07-17] MEDS: IPRATROPIUM/ALBUTEROL 0.5-3(2.5)MG/3ML NEB HHN SCH ×6 (01:09→20:23)
[2019-07-17] MEDS: HYDROCODONE/ACETAMINOPHEN 10/325MG TABLET PO PRN ×5 (05:21→23:49)
[2019-07-17 05:45] LABS: HEMOGLOBIN. 8.6 g/dL (12.0-16.0); MEAN CORPUSCULAR HEMOGLOBIN 22.1 pg (28.0-32.0); MEAN CORPUSCULAR VOLUME 71.4 fL (81.0-99.0); MEAN PLATELET VOLUME 7.2 fl (7.4-10.4); PLATELET 315 x1000/uL (130-400); RED BLOOD CELL COUNT 3.92 mill/uL (4.2-5.4); RED CELL DISTRIBUTION WIDTH 20.6 % (11.6-14.6)
[2019-07-17 06:33] LABS: CHLORIDE 105 mEq/L (98-107)
[2019-07-17] MEDS: BLOOD SUGAR DIAGNOSTIC STRIP TEST SCH ×4 (07:30→21:12)
[2019-07-17] MEDS: INSULIN LISPRO 100 UNITS/ML SUBCUT SCH ×4 (08:00→21:11)
[2019-07-17] MEDS: MULTIVITAMINS,THER W-MINERALS TABLET PO SCH (09:29)
[2019-07-17] MEDS: PREDNISONE 20MG TABLET PO SCH (09:29)
[2019-07-17] MEDS: SPIRONOLACTONE 25MG TABLET PO SCH (09:29)
[2019-07-17] MEDS: AZITHROMYCIN 500 MG TABLET PO SCH (09:29)
[2019-07-17] MEDS: FERROUS SULFATE 325MG TABLET PO SCH ×3 (09:30→18:25)
[2019-07-17] MEDS: METHIMAZOLE 5MG TABLET PO SCH (09:30)
[2019-07-17] MEDS: METFORMIN HCL 500MG TABLET PO SCH (09:30)
[2019-07-17] MEDS: APIXABAN 5 MG TABLET PO SCH ×2 (09:31→18:25)
[2019-07-17] MEDS: ASCORBIC ACID 500 MG TABLET PO SCH ×2 (09:31→21:11)
[2019-07-17] MEDS: FAMOTIDINE 20MG TABLET PO SCH ×2 (09:31→21:11)
[2019-07-17] MEDS: CITALOPRAM HYDROBROMIDE 10MG TABLET PO SCH (09:52)
[2019-07-17] MEDS: LINAGLIPTIN 5MG TABLET PO SCH (09:52)
[2019-07-17] MEDS: GLIMEPIRIDE 1MG TABLET PO SCH ×2 (09:52→18:00)
[2019-07-17] MEDS: AMBRISENTAN 10 MG PO SCH (09:55)
[2019-07-17] MEDS: FUROSEMIDE 40MG/4ML VIAL IVP SCH (10:09)
[2019-07-17] MEDS: DILTIAZEM HCL 120MG CAPSULE CD 24HR PO SCH (10:09)
[2019-07-17] MEDS: INSULIN GLARGINE UD 100 UNITS/ML SYR SUBCUT SCH ×2 (10:10→22:07)
[2019-07-17 12:29] LABS: PLATELET ESTIMATE NORMAL
[2019-07-17] MEDS: LORAZEPAM 0.5MG TABLET PO PRN (22:56)
[2019-07-18] VITALS (10 sets, daily range): BP systolic 119–154; BP diastolic 44–89
[2019-07-18] MEDS: IPRATROPIUM/ALBUTEROL 0.5-3(2.5)MG/3ML NEB HHN SCH ×6 (00:25→20:34)
[2019-07-18] MEDS: HYDROCODONE/ACETAMINOPHEN 10/325MG TABLET PO PRN ×4 (05:30→18:59)
[2019-07-18] MEDS: BLOOD SUGAR DIAGNOSTIC STRIP TEST SCH ×4 (07:30→21:34)
[2019-07-18] MEDS: INSULIN LISPRO 100 UNITS/ML SUBCUT SCH ×4 (08:00→21:39)
[2019-07-18] MEDS: FUROSEMIDE 40MG/4ML VIAL IVP SCH (08:36)
[2019-07-18] MEDS: GLIMEPIRIDE 1MG TABLET PO SCH ×2 (08:36→17:35)
[2019-07-18] MEDS: LINAGLIPTIN 5MG TABLET PO SCH (08:37)
[2019-07-18] MEDS: FAMOTIDINE 20MG TABLET PO SCH ×2 (08:37→21:34)
[2019-07-18] MEDS: ASCORBIC ACID 500 MG TABLET PO SCH ×2 (08:37→21:34)
[2019-07-18] MEDS: AZITHROMYCIN 500 MG TABLET PO SCH (08:37)
[2019-07-18] MEDS: MULTIVITAMINS,THER W-MINERALS TABLET PO SCH (08:38)
[2019-07-18] MEDS: APIXABAN 5 MG TABLET PO SCH ×2 (08:38→17:35)
[2019-07-18] MEDS: METFORMIN HCL 500MG TABLET PO SCH (08:38)
[2019-07-18] MEDS: PREDNISONE 20MG TABLET PO SCH (08:38)
[2019-07-18] MEDS: METHIMAZOLE 5MG TABLET PO SCH (08:39)
[2019-07-18] MEDS: CITALOPRAM HYDROBROMIDE 10MG TABLET PO SCH (08:39)
[2019-07-18] MEDS: DILTIAZEM HCL 120MG CAPSULE CD 24HR PO SCH (08:39)
[2019-07-18] MEDS: SPIRONOLACTONE 25MG TABLET PO SCH (08:39)
[2019-07-18] MEDS: FERROUS SULFATE 325MG TABLET PO SCH ×3 (08:39→17:35)
[2019-07-18] MEDS: AMBRISENTAN 10 MG PO SCH (08:42)
[2019-07-18] MEDS: INSULIN GLARGINE UD 100 UNITS/ML SYR SUBCUT SCH ×2 (10:01→21:40)
[2019-07-18] MEDS: LORAZEPAM 0.5MG TABLET PO PRN (12:05)
[2019-07-18] MEDS ORDERED: CITA20TA19 PO (16:52)
[2019-07-18] MEDS ORDERED: HYDR-4005 PO (16:52)
[2019-07-18] MEDS ORDERED: AZOPT EACHEYE (16:55)
[2019-07-18] MEDS ORDERED: POTA20TA82 PO (16:55)
[2019-07-18] MEDS ORDERED: TRAV2.5D EACHEYE (16:55)
[2019-07-18] MEDS ORDERED: ROFL500T PO (16:55)
[2019-07-18] MEDS ORDERED: APIX5TAB PO (16:55)
[2019-07-18] MEDS: ALPRAZOLAM 0.25 MG TABLET PO SCH (21:34)
[2019-07-19] VITALS (8 sets, daily range): BP systolic 106–138; BP diastolic 52–91
[2019-07-19] MEDS: IPRATROPIUM/ALBUTEROL 0.5-3(2.5)MG/3ML NEB HHN SCH ×6 (00:45→21:05)
[2019-07-19] MEDS: HYDROCODONE/ACETAMINOPHEN 10/325MG TABLET PO PRN ×4 (06:24→20:14)
[2019-07-19 06:40] LABS: HEMATOCRIT. 29.5 % (36.0-48.0); HEMOGLOBIN. 9.1 g/dL (12.0-16.0); MEAN CORPUSCULAR HEMOGLOBIN 22.1 pg (28.0-32.0); MEAN CORPUSCULAR VOLUME 71.7 fL (81.0-99.0); MEAN PLATELET VOLUME 7.4 fl (7.4-10.4); PLATELET 347 x1000/uL (130-400); RED BLOOD CELL COUNT 4.12 mill/uL (4.2-5.4); RED CELL DISTRIBUTION WIDTH 21.2 % (11.6-14.6)
[2019-07-19 07:23] LABS: CHLORIDE 102 mEq/L (98-107)
[2019-07-19 07:51] LABS: PHOSPHORUS 4.1 mg/dL (2.5-4.9)
[2019-07-19] MEDS: INSULIN LISPRO 100 UNITS/ML SUBCUT SCH ×4 (08:00→22:45)
[2019-07-19] MEDS: BLOOD SUGAR DIAGNOSTIC STRIP TEST SCH ×4 (08:29→21:41)
[2019-07-19] MEDS: CITALOPRAM HYDROBROMIDE 10MG TABLET PO SCH (09:42)
[2019-07-19] MEDS: METFORMIN HCL 500MG TABLET PO SCH (09:42)
[2019-07-19] MEDS: MULTIVITAMINS,THER W-MINERALS TABLET PO SCH (09:42)
[2019-07-19] MEDS: FERROUS SULFATE 325MG TABLET PO SCH ×3 (09:42→17:19)
[2019-07-19] MEDS: ASCORBIC ACID 500 MG TABLET PO SCH ×2 (09:43→20:13)
[2019-07-19] MEDS: APIXABAN 5 MG TABLET PO SCH ×2 (09:43→17:19)
[2019-07-19] MEDS: GLIMEPIRIDE 1MG TABLET PO SCH ×2 (09:44→17:19)
[2019-07-19] MEDS: LINAGLIPTIN 5MG TABLET PO SCH (09:44)
[2019-07-19] MEDS: DILTIAZEM HCL 120MG CAPSULE CD 24HR PO SCH (09:44)
[2019-07-19] MEDS: FAMOTIDINE 20MG TABLET PO SCH ×2 (09:44→20:13)
[2019-07-19] MEDS: METHIMAZOLE 5MG TABLET PO SCH (09:45)
[2019-07-19] MEDS: SPIRONOLACTONE 25MG TABLET PO SCH (09:45)
[2019-07-19] MEDS: FUROSEMIDE 40MG/4ML VIAL IVP SCH (09:45)
[2019-07-19] MEDS: AMBRISENTAN 10 MG PO SCH (09:57)
[2019-07-19] MEDS: PREDNISONE 20MG TABLET PO SCH (10:01)
[2019-07-19] MEDS: INSULIN GLARGINE UD 100 UNITS/ML SYR SUBCUT SCH (10:29)
[2019-07-19 11:10] LABS: BG BASE EXCESS 4.3 mmol/L (-2.0-2.0); BG CARBOXYHEMOGLOBIN 1.1 % (0.5-1.5); BG DEOXYHEMOGLOBIN 3.4 % (0.0-5.0); BG FRACTION INSPIRED OXYGEN 32; BG HCO3 ACT 30.1 mmol/L (22.0-26.0); BG METHEMOGLOBIN 0.3 % (0.0-1.5); BG OXYGEN SATURATION 96.6 % (92.0-98.5); BG OXYHEMOGLOBIN 95.2 % (94.0-97.0); BG PCO2 49.8 mmHg (35.0-45.0); BG PH 7.399 (7.350-7.450); BG PO2 85.4 mmHg (75.0-100.0); BG SAMPLE SITE RIGHT BRACHIAL; BG TOTAL HEMOGLOBIN 12.6 g/dL (12.0-18.0); BG VENT MODE NASAL CANNULA
[2019-07-19] MEDS: LORAZEPAM 0.5MG TABLET PO PRN ×2 (12:40→21:50)
[2019-07-19 16:22] LABS: PLATELET ESTIMATE NORMAL
[2019-07-19] MEDS ORDERED: GLIMEPIRIDE 1MG TABLET PO SCH (18:00)
[2019-07-19] MEDS: GLIMEPIRIDE 2MG TABLET PO SCH (18:16)
[2019-07-19] MEDS: ALPRAZOLAM 0.25 MG TABLET PO SCH (20:13)
[2019-07-20] VITALS (9 sets, daily range): BP systolic 109–136; BP diastolic 49–86
[2019-07-20] MEDS: HYDROCODONE/ACETAMINOPHEN 10/325MG TABLET PO PRN ×5 (00:22→17:10)
[2019-07-20] MEDS: IPRATROPIUM/ALBUTEROL 0.5-3(2.5)MG/3ML NEB HHN SCH ×5 (00:35→17:00)
[2019-07-20] MEDS: BLOOD SUGAR DIAGNOSTIC STRIP TEST SCH ×2 (07:30→11:48)
[2019-07-20] MEDS: INSULIN LISPRO 100 UNITS/ML SUBCUT SCH ×2 (08:00→13:40)
[2019-07-20] MEDS: MULTIVITAMINS,THER W-MINERALS TABLET PO SCH (08:43)
[2019-07-20] MEDS: AMBRISENTAN 10 MG PO SCH (08:43)
[2019-07-20] MEDS: FERROUS SULFATE 325MG TABLET PO SCH ×3 (08:44→17:09)
[2019-07-20] MEDS: METHIMAZOLE 5MG TABLET PO SCH (08:44)
[2019-07-20] MEDS: FUROSEMIDE 40MG/4ML VIAL IVP SCH (08:45)
[2019-07-20] MEDS: ASCORBIC ACID 500 MG TABLET PO SCH (08:45)
[2019-07-20] MEDS: APIXABAN 5 MG TABLET PO SCH ×2 (08:45→17:09)
[2019-07-20] MEDS: SPIRONOLACTONE 25MG TABLET PO SCH (08:45)
[2019-07-20] MEDS: PREDNISONE 20MG TABLET PO SCH (08:45)
[2019-07-20] MEDS: METFORMIN HCL 500MG TABLET PO SCH (08:46)
[2019-07-20] MEDS: FAMOTIDINE 20MG TABLET PO SCH (08:46)
[2019-07-20] MEDS: DILTIAZEM HCL 120MG CAPSULE CD 24HR PO SCH (08:47)
[2019-07-20] MEDS: LINAGLIPTIN 5MG TABLET PO SCH (08:51)
[2019-07-20] MEDS: CITALOPRAM HYDROBROMIDE 10MG TABLET PO SCH (08:51)
[2019-07-20] MEDS: GLIMEPIRIDE 2MG TABLET PO SCH (08:54)
[2019-07-20] MEDS: LORAZEPAM 0.5MG TABLET PO PRN (11:48)
== END 2019-07-20 18:02 | disposition home or self-care (01) | DRG 190 ==
LOC: ER 14:03 → EDBEDREQ 14:22 → 5EST 15:16 → EDBEDREQSVC 15:19 → EDBEDREQTM 15:19 → EDBEDREQ 15:19 → EDBEDREQSVC 15:26 → EDBEDREQTM 15:26 → ENRESERV 15:38 → 5EST 18:18
PROVIDERS: ADMIT Internal Medicine Pulmonary Disease; ATTEND Internal Medicine Pulmonary Disease
PROC: 5A09357 Assistance with Respiratory Ventilation, Less than 24 Consecutive Hours, Continuous Positive Airway Pressure (ICD-10-PCS; principal; 2019-07-13)
PROC: 5A09357 Assistance with Respiratory Ventilation, Less than 24 Consecutive Hours, Continuous Positive Airway Pressure (ICD-10-PCS; 2019-07-14)
PROC: 5A09357 Assistance with Respiratory Ventilation, Less than 24 Consecutive Hours, Continuous Positive Airway Pressure (ICD-10-PCS; 2019-07-15)
PROC: 5A09357 Assistance with Respiratory Ventilation, Less than 24 Consecutive Hours, Continuous Positive Airway Pressure (ICD-10-PCS; 2019-07-16)
PROC: 5A09357 Assistance with Respiratory Ventilation, Less than 24 Consecutive Hours, Continuous Positive Airway Pressure (ICD-10-PCS; 2019-07-17)
PROC: 5A09357 Assistance with Respiratory Ventilation, Less than 24 Consecutive Hours, Continuous Positive Airway Pressure (ICD-10-PCS; 2019-07-18)
PROC: 5A09357 Assistance with Respiratory Ventilation, Less than 24 Consecutive Hours, Continuous Positive Airway Pressure (ICD-10-PCS; 2019-07-19)
PROC: 5A09357 Assistance with Respiratory Ventilation, Less than 24 Consecutive Hours, Continuous Positive Airway Pressure (ICD-10-PCS; 2019-07-20)
DX: J44.1 Chronic obstructive pulmonary disease with (acute) exacerbation (principal); I50.33 Acute on chronic diastolic (congestive) heart failure; I48.20 Chronic atrial fibrillation, unspecified; E87.2 Acidosis; J96.12 Chronic respiratory failure with hypercapnia; J96.11 Chronic respiratory failure with hypoxia; Z68.41 Body mass index [BMI] 40.0-44.9, adult; I11.0 Hypertensive heart disease with heart failure; D64.9 Anemia, unspecified; E11.65 Type 2 diabetes mellitus with hyperglycemia; G47.33 Obstructive sleep apnea (adult) (pediatric); E05.90 Thyrotoxicosis, unspecified without thyrotoxic crisis or storm; E03.9 Hypothyroidism, unspecified; I27.81 Cor pulmonale (chronic); K63.5 Polyp of colon; E78.5 Hyperlipidemia, unspecified; F32.9 Major depressive disorder, single episode, unspecified; R07.81 Pleurodynia; E66.01 Morbid (severe) obesity due to excess calories; Z96.1 Presence of intraocular lens; F41.9 Anxiety disorder, unspecified; G89.29 Other chronic pain; I27.29 Other secondary pulmonary hypertension; Z79.4 Long term (current) use of insulin; Z79.52 Long term (current) use of systemic steroids; Z95.0 Presence of cardiac pacemaker; Z80.1 Family history of malignant neoplasm of trachea, bronchus and lung; Z79.01 Long term (current) use of anticoagulants; Z82.49 Family history of ischemic heart disease and other diseases of the circulatory system; Z83.3 Family history of diabetes mellitus; Z87.891 Personal history of nicotine dependence; Z90.710 Acquired absence of both cervix and uterus; Z98.41 Cataract extraction status, right eye; Z79.899 Other long term (current) drug therapy
CPT/HCPCS: 36415; 36600; 71045; 71275; 80048; 80053; 82375; 82550; 82553; 82805; 82962; 83036; 83605; 83735; 83880; 84100; 84145; 84439; 84443; 84481; 84484; 85025; 93005; 93970; 94640; 94660; 96365; 99291; C1893; J1815; J1940; J2930; J3475; J7512; Q9967

== ENCOUNTER 2019-09-30 20:28 | Inpatient (IN) | payer MEDICARE, MEDICAID ==
[~2019-09-30] VITALS: Ht 162.6 cm; Wt 115.4 kg
[~2019-09-30 20:28] MED LIST changes: +AMBR10TA3 PO; +APIX5TAB PO; +AZOPT EACHEYE; +CITA20TA19 PO; -CITA40TA22 PO; +HYDR-4005 PO; -HYDR-4009 PO; +POTA20TA82 PO; +ROFL500T PO; +TRAV2.5D EACHEYE
[2019-09-30] MEDS ORDERED: ACETAMINOPHEN 500MG TABLET PO ONE (22:15)
[2019-09-30] MEDS ORDERED: FUROSEMIDE 40MG/4ML VIAL IV ONE (22:15)
[2019-09-30 22:26] LABS: HEMATOCRIT. 30.7 % (36.0-48.0); HEMOGLOBIN. 9.9 g/dL (12.0-16.0); MEAN CORPUSCULAR HEMOGLOBIN 23.4 pg (28.0-32.0); MEAN PLATELET VOLUME 7.6 fl (7.4-10.4); PLATELET 322 x1000/uL (130-400); RED BLOOD CELL COUNT 4.21 mill/uL (4.2-5.4); RED CELL DISTRIBUTION WIDTH 20.6 % (11.6-14.6)
[2019-09-30 22:30] LABS: CHLORIDE 103 mEq/L (98-107)
[2019-10-01] MEDS: HYDROCODONE/ACETAMINOPHEN 10/325MG TABLET PO PRN ×4 (02:38→20:54)
[2019-10-01 03:00] VITALS: BP 130/66
[2019-10-01 03:09] VITALS: BP 130/66
[2019-10-01 05:09] LABS: PLATELET ESTIMATE NORMAL
[2019-10-01] MEDS ORDERED: FUROSEMIDE 40MG/4ML VIAL IV SCH (07:00)
[2019-10-01] MEDS ORDERED: ERGOCALCIFEROL 50000UNITS CAPSULE PO SCH (07:00)
[2019-10-01] MEDS ORDERED: NON FORMULARY PATIENT HOME MED XX SCH ×4 (07:00)
[2019-10-01] MEDS ORDERED: ALBUTEROL 6.7GM HFA INHALER INH PRN (07:00)
[2019-10-01] MEDS ORDERED: ACETAMINOPHEN 650MG/20.3ML UDC PO PRN (07:00)
[2019-10-01] MEDS ORDERED: ALBUTEROL (0.083%) 2.5MG/3ML NEB HHN PRN (07:30)
[2019-10-01 08:00] VITALS: BP 128/65
[2019-10-01] MEDS: LINAGLIPTIN 5MG TABLET PO SCH (08:49)
[2019-10-01] MEDS: DOCUSATE SODIUM 250MG CAPSULE PO SCH ×2 (08:49→16:42)
[2019-10-01] MEDS: CITALOPRAM HYDROBROMIDE 10MG TABLET PO SCH (08:49)
[2019-10-01] MEDS: APIXABAN 5 MG TABLET PO SCH ×2 (08:49→20:52)
[2019-10-01] MEDS: FERROUS SULFATE 325MG TABLET PO SCH ×3 (08:49→16:42)
[2019-10-01] MEDS: FAMOTIDINE 20MG TABLET PO SCH ×2 (08:49→20:52)
[2019-10-01] MEDS: FUROSEMIDE 40MG TABLET PO SCH ×2 (08:49→16:42)
[2019-10-01] MEDS: DILTIAZEM HCL 120MG CAPSULE CD 24HR PO SCH (08:50)
[2019-10-01] MEDS: PREDNISONE 20MG TABLET PO SCH (08:50)
[2019-10-01] MEDS: ASCORBIC ACID 500 MG TABLET PO SCH (08:50)
[2019-10-01] MEDS: POTASSIUM CHLORIDE 20MEQ TABLET SR PO SCH (08:50)
[2019-10-01] MEDS: METHIMAZOLE 5MG TABLET PO SCH ×2 (08:50→16:42)
[2019-10-01] MEDS: SPIRONOLACTONE 25MG TABLET PO SCH (08:51)
[2019-10-01 12:00] VITALS: BP 130/71
[2019-10-01] MEDS: DORZOLAMIDE 2% OPHTH 10 ML BOTTLE EACHEYE SCH ×2 (14:58→16:43)
[2019-10-01 16:00] VITALS: BP 131/77
[2019-10-01] MEDS: METFORMIN HCL 500MG TABLET PO SCH (16:42)
[2019-10-01 20:00] VITALS: BP 108/64
[2019-10-01] MEDS: LATANOPROST 0.005% OPHTH DROPS 2.5ML EACHEYE SCH (20:56)
[2019-10-02] VITALS: BP 139/74
[2019-10-02 04:00] VITALS: BP 103/51
[2019-10-02] MEDS: HYDROCODONE/ACETAMINOPHEN 10/325MG TABLET PO PRN ×4 (05:28→23:27)
[2019-10-02 08:00] VITALS: BP 112/56
[2019-10-02] MEDS: DILTIAZEM HCL 120MG CAPSULE CD 24HR PO SCH (08:25)
[2019-10-02] MEDS: FERROUS SULFATE 325MG TABLET PO SCH ×3 (08:25→16:36)
[2019-10-02] MEDS: PREDNISONE 20MG TABLET PO SCH (08:25)
[2019-10-02] MEDS: POTASSIUM CHLORIDE 20MEQ TABLET SR PO SCH (08:25)
[2019-10-02] MEDS: METHIMAZOLE 5MG TABLET PO SCH ×3 (08:25→23:01)
[2019-10-02] MEDS: APIXABAN 5 MG TABLET PO SCH ×2 (08:25→20:35)
[2019-10-02] MEDS: ASCORBIC ACID 500 MG TABLET PO SCH (08:26)
[2019-10-02] MEDS: FUROSEMIDE 40MG TABLET PO SCH ×2 (08:26→16:36)
[2019-10-02] MEDS: DOCUSATE SODIUM 250MG CAPSULE PO SCH ×3 (08:26→16:36)
[2019-10-02] MEDS: FAMOTIDINE 20MG TABLET PO SCH ×2 (08:26→20:35)
[2019-10-02] MEDS: LINAGLIPTIN 5MG TABLET PO SCH (08:26)
[2019-10-02] MEDS: SPIRONOLACTONE 25MG TABLET PO SCH (08:26)
[2019-10-02] MEDS: CITALOPRAM HYDROBROMIDE 10MG TABLET PO SCH (08:38)
[2019-10-02] MEDS: DORZOLAMIDE 2% OPHTH 10 ML BOTTLE EACHEYE SCH ×2 (09:08→16:41)
[2019-10-02] MEDS: IPRATROPIUM/ALBUTEROL 0.5-3(2.5)MG/3ML NEB HHN PRN ×3 (09:33→20:56)
[2019-10-02 12:00] VITALS: BP 121/68
[2019-10-02] MEDS ORDERED: DEXTROSE 50% WATER 50ML SYRINGE IV PRN (12:15)
[2019-10-02] MEDS: INSULIN LISPRO 100 UNITS/ML SUBCUT SCH ×3 (12:33→20:39)
[2019-10-02 16:00] VITALS: BP 116/66
[2019-10-02] MEDS: BLOOD SUGAR DIAGNOSTIC STRIP TEST SCH ×2 (16:35→20:34)
[2019-10-02] MEDS: METFORMIN HCL 500MG TABLET PO SCH (16:36)
[2019-10-02 20:00] VITALS: BP 111/63
[2019-10-02] MEDS: LATANOPROST 0.005% OPHTH DROPS 2.5ML EACHEYE SCH (20:36)
[2019-10-02] MEDS: FUROSEMIDE 40MG/4ML VIAL IV SCH (23:01)
[2019-10-03] VITALS: BP 119/68
[2019-10-03] MEDS: IPRATROPIUM BROMIDE (0.02%) 0.5MG/2.5ML NEB HHN SCH ×6 (00:53→20:19)
[2019-10-03 04:00] VITALS: BP 139/78
[2019-10-03] MEDS: HYDROCODONE/ACETAMINOPHEN 10/325MG TABLET PO PRN ×4 (06:20→21:06)
[2019-10-03] MEDS: BLOOD SUGAR DIAGNOSTIC STRIP TEST SCH ×4 (06:46→21:11)
[2019-10-03] MEDS: INSULIN LISPRO 100 UNITS/ML SUBCUT SCH ×4 (06:46→21:32)
[2019-10-03 07:32] LABS: PHOSPHORUS 4.3 mg/dL (2.5-4.9)
[2019-10-03 07:36] LABS: T4 FREE 0.81 ng/dL (0.76-1.46)
[2019-10-03 08:00] VITALS: BP 111/63
[2019-10-03] MEDS: FUROSEMIDE 40MG/4ML VIAL IV SCH ×2 (09:00→12:52)
[2019-10-03] MEDS: DORZOLAMIDE 2% OPHTH 10 ML BOTTLE EACHEYE SCH ×2 (09:35→16:09)
[2019-10-03] MEDS: FLUTICASONE/VILANTEROL 200-25 BLST.W.DEV ORI SCH (09:36)
[2019-10-03] MEDS: UMECLIDINIUM BROMIDE 1 INH BLST.W.DEV IH SCH (09:37)
[2019-10-03] MEDS: FERROUS SULFATE 325MG TABLET PO SCH ×3 (09:37→18:09)
[2019-10-03] MEDS: POTASSIUM CHLORIDE 20MEQ TABLET SR PO SCH (09:38)
[2019-10-03] MEDS: DOCUSATE SODIUM 250MG CAPSULE PO SCH ×2 (09:38→16:08)
[2019-10-03] MEDS: APIXABAN 5 MG TABLET PO SCH ×2 (09:38→21:05)
[2019-10-03] MEDS: FAMOTIDINE 20MG TABLET PO SCH ×2 (09:38→21:05)
[2019-10-03] MEDS: PREDNISONE 20MG TABLET PO SCH (09:38)
[2019-10-03] MEDS: DILTIAZEM HCL 120MG CAPSULE CD 24HR PO SCH (09:42)
[2019-10-03] MEDS: CITALOPRAM HYDROBROMIDE 10MG TABLET PO SCH (09:42)
[2019-10-03] MEDS: METHIMAZOLE 5MG TABLET PO SCH (09:42)
[2019-10-03] MEDS: SPIRONOLACTONE 25MG TABLET PO SCH (09:42)
[2019-10-03] MEDS: ASCORBIC ACID 500 MG TABLET PO SCH (09:45)
[2019-10-03] MEDS: LINAGLIPTIN 5MG TABLET PO SCH (09:45)
[2019-10-03 12:00] VITALS: BP 137/77
[2019-10-03 16:00] VITALS: BP 127/74
[2019-10-03] MEDS: METFORMIN HCL 500MG TABLET PO SCH (16:07)
[2019-10-03] MEDS: FUROSEMIDE 40MG TABLET PO SCH (16:08)
[2019-10-03 20:00] VITALS: BP 131/80
[2019-10-03] MEDS: LATANOPROST 0.005% OPHTH DROPS 2.5ML EACHEYE SCH (21:28)
[2019-10-04] VITALS: BP 120/60
[2019-10-04] MEDS: IPRATROPIUM BROMIDE (0.02%) 0.5MG/2.5ML NEB HHN SCH ×3 (00:22→09:35)
[2019-10-04 04:00] VITALS: BP 107/69
[2019-10-04] MEDS: BLOOD SUGAR DIAGNOSTIC STRIP TEST SCH (06:13)
[2019-10-04] MEDS: HYDROCODONE/ACETAMINOPHEN 10/325MG TABLET PO PRN (06:16)
[2019-10-04] MEDS: FERROUS SULFATE 325MG TABLET PO SCH (06:17)
[2019-10-04] MEDS: INSULIN LISPRO 100 UNITS/ML SUBCUT SCH (07:15)
[2019-10-04 08:00] VITALS: BP 128/81
[2019-10-04] MEDS: APIXABAN 5 MG TABLET PO SCH (08:33)
[2019-10-04] MEDS: ASCORBIC ACID 500 MG TABLET PO SCH (08:34)
[2019-10-04] MEDS: DILTIAZEM HCL 120MG CAPSULE CD 24HR PO SCH (08:34)
[2019-10-04] MEDS: FUROSEMIDE 40MG TABLET PO SCH (08:34)
[2019-10-04] MEDS: SPIRONOLACTONE 25MG TABLET PO SCH (08:34)
[2019-10-04] MEDS: PREDNISONE 20MG TABLET PO SCH (08:34)
[2019-10-04] MEDS: DOCUSATE SODIUM 250MG CAPSULE PO SCH (08:34)
[2019-10-04] MEDS: METHIMAZOLE 5MG TABLET PO SCH (08:34)
[2019-10-04] MEDS: CITALOPRAM HYDROBROMIDE 10MG TABLET PO SCH (08:35)
[2019-10-04] MEDS: POTASSIUM CHLORIDE 20MEQ TABLET SR PO SCH (08:35)
[2019-10-04] MEDS: UMECLIDINIUM BROMIDE 1 INH BLST.W.DEV IH SCH (08:35)
[2019-10-04] MEDS: FAMOTIDINE 20MG TABLET PO SCH (08:35)
[2019-10-04] MEDS: LINAGLIPTIN 5MG TABLET PO SCH (08:35)
[2019-10-04] MEDS: DORZOLAMIDE 2% OPHTH 10 ML BOTTLE EACHEYE SCH (08:35)
[2019-10-04] MEDS: FLUTICASONE/VILANTEROL 200-25 BLST.W.DEV ORI SCH (08:35)
[2019-10-04 10:41] VITALS: BP 128/81
== END 2019-10-04 11:10 | disposition home or self-care (01) | DRG 191 ==
LOC: ER 20:28 → 5WST 10-01 00:01 → EDBEDREQTM 10-01 00:03 → EDBEDREQ 10-01 00:03 → ENRESERV 10-01 01:35
PROVIDERS: ADMIT Internal Medicine Pulmonary Disease; ATTEND Internal Medicine Pulmonary Disease
PROC: 5A09357 Assistance with Respiratory Ventilation, Less than 24 Consecutive Hours, Continuous Positive Airway Pressure (ICD-10-PCS; principal; 2019-10-02)
PROC: 5A09357 Assistance with Respiratory Ventilation, Less than 24 Consecutive Hours, Continuous Positive Airway Pressure (ICD-10-PCS; 2019-10-03)
PROC: 5A09357 Assistance with Respiratory Ventilation, Less than 24 Consecutive Hours, Continuous Positive Airway Pressure (ICD-10-PCS; 2019-10-04)
DX: J44.1 Chronic obstructive pulmonary disease with (acute) exacerbation (principal); I48.20 Chronic atrial fibrillation, unspecified; J96.11 Chronic respiratory failure with hypoxia; J96.12 Chronic respiratory failure with hypercapnia; Z68.43 Body mass index [BMI] 50.0-59.9, adult; I42.9 Cardiomyopathy, unspecified; I50.30 Unspecified diastolic (congestive) heart failure; I11.0 Hypertensive heart disease with heart failure; I27.29 Other secondary pulmonary hypertension; I27.81 Cor pulmonale (chronic); D64.9 Anemia, unspecified; E11.9 Type 2 diabetes mellitus without complications; G47.33 Obstructive sleep apnea (adult) (pediatric); E66.9 Obesity, unspecified; E78.5 Hyperlipidemia, unspecified; F41.9 Anxiety disorder, unspecified; G89.29 Other chronic pain; D12.6 Benign neoplasm of colon, unspecified; K21.9 Gastro-esophageal reflux disease without esophagitis; F32.9 Major depressive disorder, single episode, unspecified; M54.5 Low back pain; E05.80 Other thyrotoxicosis without thyrotoxic crisis or storm; Z79.01 Long term (current) use of anticoagulants; Z79.899 Other long term (current) drug therapy; Z80.1 Family history of malignant neoplasm of trachea, bronchus and lung; Z87.891 Personal history of nicotine dependence; Z79.4 Long term (current) use of insulin; Z79.51 Long term (current) use of inhaled steroids; Z79.52 Long term (current) use of systemic steroids; Z98.42 Cataract extraction status, left eye; Z98.41 Cataract extraction status, right eye
CPT/HCPCS: 36415; 71045; 80048; 80053; 82962; 83036; 83735; 83880; 84100; 84439; 84443; 84481; 84484; 85025; 93005; 94003; 94640; 94660; 96374; 99285; J1815; J1940; J7512

== ENCOUNTER 2019-12-17 17:58 | Inpatient (IN) | payer MEDICARE, MEDICAID ==
[~2019-12-17] VITALS: Ht 167.6 cm; Wt 117.2 kg
[2019-12-17] MEDS ORDERED: ASPIRIN 325MG EC TABLET PO ONE (18:30)
[2019-12-17 23:00] LABS: BASOPHILS % 0.3 % (0.0-2.0); HEMATOCRIT. 28.4 % (36.0-48.0); HEMOGLOBIN. 9.3 g/dL (12.0-16.0); LYMPHOCYTES % 12.7 % (20.0-50.0); MEAN CORPUSCULAR HEMOGLOBIN 24.2 pg (28.0-32.0); MEAN CORPUSCULAR VOLUME 73.8 fL (81.0-99.0); MEAN PLATELET VOLUME 7.5 fl (7.4-10.4); MONOCYTES % 8.9 % (2.0-8.0); NEUTROPHILS % 69.1 % (40.0-76.0); PLATELET 283 x1000/uL (130-400); RED BLOOD CELL COUNT 3.85 mill/uL (4.2-5.4); RED CELL DISTRIBUTION WIDTH 18.4 % (11.6-14.6)
[2019-12-17 23:03] LABS: CHLORIDE 106 mEq/L (98-107)
[2019-12-17] MEDS ORDERED: METHYLPREDNISOLONE SOD SUCC 125 MG/2 ML VIAL IV NR (23:39)
[2019-12-17] MEDS ORDERED: CEFTRIAXONE 1 G PREMIX 50 ML IV NR (23:45)
[2019-12-17] MEDS ORDERED: AZITHROMYCIN 500 MG in DEXT 5% WATER 250 ML IV NR (23:45)
[2019-12-17] MEDS ORDERED: ONDANSETRON HCL 4MG/2ML INJ IV STA (23:49)
[2019-12-17] MEDS ORDERED: MORPHINE SULFATE 4 MG/ML CPJ (NOT FOR IM USE) IV STA (23:49)
[2019-12-18] MEDS ORDERED: IPRATROPIUM/ALBUTEROL 0.5-3(2.5)MG/3ML NEB HHN PRN (03:15)
[2019-12-18] MEDS: ALBUTEROL 6.7GM HFA INHALER INH PRN ×2 (04:25→12:20)
[2019-12-18] MEDS: HYDROCODONE/APAP 7.5/325MG 1 TAB TABLET PO PRN ×4 (04:28→19:55)
[2019-12-18] MEDS ORDERED: DILTIAZEM HCL 120MG CAPSULE CD 24HR PO SCH (14:30)
[2019-12-18] MEDS ORDERED: FUROSEMIDE 40MG/4ML VIAL IVP SCH (14:30)
[2019-12-18] MEDS: APIXABAN 5 MG TABLET PO SCH (17:13)
[2019-12-18] MEDS ORDERED: IPRATROPIUM BROMIDE (0.02%) 0.5MG/2.5ML NEB HHN PRN (23:00)
[2019-12-18] MEDS ORDERED: ACETAMINOPHEN 650MG/20.3ML UDC PO PRN (23:00)
[2019-12-19] VITALS (7 sets, daily range): BP systolic 98–146; BP diastolic 52–85
[2019-12-19] MEDS: HYDROCODONE/ACETAMINOPHEN 10/325MG TABLET PO PRN ×7 (01:04→21:48)
[2019-12-19] MEDS ORDERED: DEXTROSE 50% WATER 50ML SYRINGE IV PRN (01:15)
[2019-12-19] MEDS ORDERED: ALPRAZOLAM 0.5 MG TABLET PO PRN (01:30)
[2019-12-19 05:42] LABS: CHLORIDE 104 mEq/L (98-107)
[2019-12-19] MEDS: BLOOD SUGAR DIAGNOSTIC STRIP TEST SCH ×4 (06:06→20:19)
[2019-12-19] MEDS ORDERED: ROFL500T PO (07:54)
[2019-12-19] MEDS ORDERED: FLUT1BLS INH (07:54)
[2019-12-19] MEDS ORDERED: HYDR-4009 MT (07:54)
[2019-12-19] MEDS ORDERED: LINA5TAB PO (07:54)
[2019-12-19] MEDS ORDERED: ALPR0.25 MT (07:54)
[2019-12-19] MEDS ORDERED: GLIM4TAB36 MT (07:54)
[2019-12-19] MEDS ORDERED: METF-414 MT (07:54)
[2019-12-19] MEDS ORDERED: MULT-1146 MT (07:54)
[2019-12-19] MEDS ORDERED: ESCI5SOL2 PO (07:54)
[2019-12-19] MEDS ORDERED: ATROV INH (07:54)
[2019-12-19] MEDS ORDERED: TAP5 PO (07:54)
[2019-12-19] MEDS ORDERED: AMBR10TA3 MT (07:54)
[2019-12-19] MEDS: INSULIN LISPRO 100 UNITS/ML SUBCUT SCH ×4 (08:10→20:19)
[2019-12-19] MEDS ORDERED: METFORMIN HCL 500MG TABLET PO ONE (09:00)
[2019-12-19] MEDS ORDERED: FAMOTIDINE 20MG TABLET PO ONE (09:00)
[2019-12-19] MEDS: FUROSEMIDE 100MG/10ML VIAL IVP SCH ×2 (09:22→17:24)
[2019-12-19] MEDS: POTASSIUM CHLORIDE 20MEQ TABLET SR PO SCH (09:23)
[2019-12-19] MEDS: FERROUS SULFATE 325MG TABLET PO SCH ×3 (09:23→17:24)
[2019-12-19] MEDS: DILTIAZEM HCL 120MG CAPSULE CD 24HR PO SCH (09:23)
[2019-12-19] MEDS: GLIMEPIRIDE 2MG TABLET PO SCH ×2 (09:24→17:24)
[2019-12-19] MEDS: CITALOPRAM HYDROBROMIDE 10MG TABLET PO SCH (09:24)
[2019-12-19] MEDS: PREDNISONE 20MG TABLET PO SCH (09:24)
[2019-12-19] MEDS: ASCORBIC ACID 500 MG TABLET PO SCH ×2 (09:25→17:24)
[2019-12-19] MEDS: MULTIVITAMINS,THER W-MINERALS TABLET PO SCH (09:25)
[2019-12-19] MEDS: METHIMAZOLE 5MG TABLET PO SCH (09:25)
[2019-12-19] MEDS: LINAGLIPTIN 5MG TABLET PO SCH (09:26)
[2019-12-19] MEDS: APIXABAN 5 MG TABLET PO SCH ×2 (09:30→17:24)
[2019-12-19] MEDS ORDERED: LIDOCAINE HCL/PF 1% 2ML VIAL ONE (10:36)
[2019-12-19 11:29] LABS: BG BASE EXCESS 9.5 mmol/L (-2.0-2.0); BG CARBOXYHEMOGLOBIN 0.3 % (0.5-1.5); BG DEOXYHEMOGLOBIN 5.4 % (0.0-5.0); BG FRACTION INSPIRED OXYGEN 32; BG HCO3 ACT 35.1 mmol/L (22.0-26.0); BG METHEMOGLOBIN 0.1 % (0.0-1.5); BG OXYGEN SATURATION 94.6 % (92.0-98.5); BG OXYHEMOGLOBIN 94.2 % (94.0-97.0); BG PH 7.439 (7.350-7.450); BG PO2 72.8 mmHg (75.0-100.0); BG SAMPLE SITE RIGHT RADIAL; BG TOTAL HEMOGLOBIN 10.7 g/dL (12.0-18.0); BG VENT MODE NASAL CANNULA
[2019-12-19] MEDS: FLUTICASONE/VILANTEROL 200-25 BLST.W.DEV ORI SCH (14:47)
[2019-12-19] MEDS: UMECLIDINIUM BROMIDE 1 INH BLST.W.DEV IH SCH (14:47)
[2019-12-20 04:00] VITALS: BP 139/63
[2019-12-20] MEDS: HYDROCODONE/ACETAMINOPHEN 10/325MG TABLET PO PRN ×4 (04:51→19:57)
[2019-12-20] MEDS: BLOOD SUGAR DIAGNOSTIC STRIP TEST SCH ×4 (07:40→20:57)
[2019-12-20] MEDS: INSULIN LISPRO 100 UNITS/ML SUBCUT SCH ×4 (07:45→21:03)
[2019-12-20 08:00] VITALS: BP 138/86
[2019-12-20] MEDS: FUROSEMIDE 100MG/10ML VIAL IVP SCH ×2 (09:31→18:02)
[2019-12-20] MEDS: MULTIVITAMINS,THER W-MINERALS TABLET PO SCH (09:42)
[2019-12-20] MEDS: APIXABAN 5 MG TABLET PO SCH ×2 (09:43→17:51)
[2019-12-20] MEDS: PREDNISONE 20MG TABLET PO SCH (09:43)
[2019-12-20] MEDS: CITALOPRAM HYDROBROMIDE 10MG TABLET PO SCH (09:43)
[2019-12-20] MEDS: DILTIAZEM HCL 120MG CAPSULE CD 24HR PO SCH ×2 (09:43→21:02)
[2019-12-20] MEDS: ASCORBIC ACID 500 MG TABLET PO SCH ×2 (09:43→17:45)
[2019-12-20] MEDS: LINAGLIPTIN 5MG TABLET PO SCH (09:43)
[2019-12-20] MEDS: FERROUS SULFATE 325MG TABLET PO SCH ×3 (09:43→17:45)
[2019-12-20] MEDS: POTASSIUM CHLORIDE 20MEQ TABLET SR PO SCH (09:43)
[2019-12-20] MEDS: GLIMEPIRIDE 2MG TABLET PO SCH ×2 (09:44→17:45)
[2019-12-20] MEDS: METHIMAZOLE 5MG TABLET PO SCH (09:44)
[2019-12-20] MEDS: UMECLIDINIUM BROMIDE 1 INH BLST.W.DEV IH SCH (09:52)
[2019-12-20] MEDS: FLUTICASONE/VILANTEROL 200-25 BLST.W.DEV ORI SCH (09:52)
[2019-12-20 12:00] VITALS: BP 132/80
[2019-12-20 16:00] VITALS: BP 126/69
[2019-12-20 18:10] LABS: HEMATOCRIT. 33.1 % (36.0-48.0); HEMOGLOBIN. 10.4 g/dL (12.0-16.0); MEAN CORPUSCULAR HEMOGLOBIN 23.2 pg (28.0-32.0); MEAN CORPUSCULAR VOLUME 73.6 fL (81.0-99.0); PLATELET 381 x1000/uL (130-400); RED CELL DISTRIBUTION WIDTH 18.5 % (11.6-14.6)
[2019-12-20 18:16] LABS: CHLORIDE 97 mEq/L (98-107)
[2019-12-20 18:55] LABS: PLATELET ESTIMATE NORMAL
[2019-12-21] VITALS (7 sets, daily range): BP systolic 120–152; BP diastolic 70–94
[2019-12-21] MEDS: HYDROCODONE/ACETAMINOPHEN 10/325MG TABLET PO PRN ×5 (04:28→23:13)
[2019-12-21] MEDS: BLOOD SUGAR DIAGNOSTIC STRIP TEST SCH ×4 (06:52→20:37)
[2019-12-21] MEDS: INSULIN LISPRO 100 UNITS/ML SUBCUT SCH ×4 (07:32→20:57)
[2019-12-21] MEDS ORDERED: DILTIAZEM HCL 180MG CAPSULE CD 24HR PO SCH (09:00)
[2019-12-21] MEDS: GLIMEPIRIDE 2MG TABLET PO SCH ×2 (09:20→17:57)
[2019-12-21] MEDS: FUROSEMIDE 100MG/10ML VIAL IVP SCH ×2 (09:20→17:57)
[2019-12-21] MEDS: MULTIVITAMINS,THER W-MINERALS TABLET PO SCH (09:20)
[2019-12-21] MEDS: APIXABAN 5 MG TABLET PO SCH ×2 (09:20→18:00)
[2019-12-21] MEDS: PREDNISONE 20MG TABLET PO SCH (09:20)
[2019-12-21] MEDS: POTASSIUM CHLORIDE 20MEQ TABLET SR PO SCH (09:20)
[2019-12-21] MEDS: FERROUS SULFATE 325MG TABLET PO SCH ×3 (09:21→17:57)
[2019-12-21] MEDS: LINAGLIPTIN 5MG TABLET PO SCH (09:21)
[2019-12-21] MEDS: DILTIAZEM HCL 120MG CAPSULE CD 24HR PO SCH ×2 (09:21→20:37)
[2019-12-21] MEDS: ASCORBIC ACID 500 MG TABLET PO SCH ×2 (09:21→17:57)
[2019-12-21] MEDS: CITALOPRAM HYDROBROMIDE 10MG TABLET PO SCH (09:21)
[2019-12-21] MEDS: METHIMAZOLE 5MG TABLET PO SCH (09:22)
[2019-12-21] MEDS: FLUTICASONE/VILANTEROL 200-25 BLST.W.DEV ORI SCH (09:36)
[2019-12-21] MEDS: UMECLIDINIUM BROMIDE 1 INH BLST.W.DEV IH SCH (09:36)
[2019-12-22] VITALS: BP 127/76
[2019-12-22 04:00] VITALS: BP 123/75
[2019-12-22] MEDS: HYDROCODONE/ACETAMINOPHEN 10/325MG TABLET PO PRN ×5 (04:34→22:17)
[2019-12-22 06:28] LABS: BASOPHILS % 0.5 % (0.0-2.0); EOSINOPHILS % 0.7 % (0.0-5.0); HEMATOCRIT. 31.7 % (36.0-48.0); HEMOGLOBIN. 10.1 g/dL (12.0-16.0); LYMPHOCYTES % 11.7 % (20.0-50.0); MEAN CORPUSCULAR HEMOGLOBIN 22.9 pg (28.0-32.0); MEAN CORPUSCULAR VOLUME 72.2 fL (81.0-99.0); MEAN PLATELET VOLUME 7.6 fl (7.4-10.4); MONOCYTES % 7.3 % (2.0-8.0); NEUTROPHILS % 79.8 % (40.0-76.0); PLATELET 415 x1000/uL (130-400); RED CELL DISTRIBUTION WIDTH 18.2 % (11.6-14.6)
[2019-12-22 07:06] LABS: CHLORIDE 98 mEq/L (98-107)
[2019-12-22] MEDS: BLOOD SUGAR DIAGNOSTIC STRIP TEST SCH ×4 (07:27→21:33)
[2019-12-22] MEDS: INSULIN LISPRO 100 UNITS/ML SUBCUT SCH ×4 (07:28→22:06)
[2019-12-22 08:00] VITALS: BP 118/71
[2019-12-22] MEDS: MULTIVITAMINS,THER W-MINERALS TABLET PO SCH (09:02)
[2019-12-22] MEDS: APIXABAN 5 MG TABLET PO SCH ×2 (09:02→17:21)
[2019-12-22] MEDS: ASCORBIC ACID 500 MG TABLET PO SCH ×2 (09:02→17:20)
[2019-12-22] MEDS: FERROUS SULFATE 325MG TABLET PO SCH ×3 (09:02→17:21)
[2019-12-22] MEDS: FUROSEMIDE 100MG/10ML VIAL IVP SCH (09:02)
[2019-12-22] MEDS: PREDNISONE 20MG TABLET PO SCH (09:02)
[2019-12-22] MEDS: UMECLIDINIUM BROMIDE 1 INH BLST.W.DEV IH SCH (09:03)
[2019-12-22] MEDS: GLIMEPIRIDE 2MG TABLET PO SCH ×2 (09:03→17:20)
[2019-12-22] MEDS: LINAGLIPTIN 5MG TABLET PO SCH (09:03)
[2019-12-22] MEDS: CITALOPRAM HYDROBROMIDE 10MG TABLET PO SCH (09:03)
[2019-12-22] MEDS: FLUTICASONE/VILANTEROL 200-25 BLST.W.DEV ORI SCH (09:03)
[2019-12-22] MEDS: METHIMAZOLE 5MG TABLET PO SCH (09:03)
[2019-12-22] MEDS: POTASSIUM CHLORIDE 20MEQ TABLET SR PO SCH (09:03)
[2019-12-22] MEDS: DILTIAZEM HCL 120MG CAPSULE CD 24HR PO SCH ×2 (10:50→23:07)
[2019-12-22 12:00] VITALS: BP 135/65
[2019-12-22 16:00] VITALS: BP 128/70
[2019-12-22 20:00] VITALS: BP 112/68
[2019-12-22] MEDS: FUROSEMIDE 40MG TABLET PO SCH (21:34)
[2019-12-23] VITALS: BP 121/65
[2019-12-23 04:00] VITALS: BP 125/72
[2019-12-23] MEDS: HYDROCODONE/ACETAMINOPHEN 10/325MG TABLET PO PRN ×5 (04:48→22:08)
[2019-12-23] MEDS: BLOOD SUGAR DIAGNOSTIC STRIP TEST SCH ×4 (06:57→20:25)
[2019-12-23 08:00] VITALS: BP 157/94
[2019-12-23] MEDS: INSULIN LISPRO 100 UNITS/ML SUBCUT SCH ×4 (08:10→21:29)
[2019-12-23 08:13] LABS: BASOPHILS % 0.2 % (0.0-2.0); HEMATOCRIT. 33.1 % (36.0-48.0); HEMOGLOBIN. 10.5 g/dL (12.0-16.0); LYMPHOCYTES % 12.5 % (20.0-50.0); MEAN CORPUSCULAR HEMOGLOBIN 23.3 pg (28.0-32.0); MEAN CORPUSCULAR VOLUME 73.7 fL (81.0-99.0); MEAN PLATELET VOLUME 7.4 fl (7.4-10.4); MONOCYTES % 7.4 % (2.0-8.0); NEUTROPHILS % 78.9 % (40.0-76.0); PLATELET 436 x1000/uL (130-400); RED CELL DISTRIBUTION WIDTH 17.9 % (11.6-14.6)
[2019-12-23 08:19] LABS: CHLORIDE 98 mEq/L (98-107)
[2019-12-23] MEDS: FUROSEMIDE 40MG TABLET PO SCH ×2 (09:27→21:29)
[2019-12-23] MEDS: ASCORBIC ACID 500 MG TABLET PO SCH ×2 (09:27→17:24)
[2019-12-23] MEDS: PREDNISONE 20MG TABLET PO SCH (09:27)
[2019-12-23] MEDS: MULTIVITAMINS,THER W-MINERALS TABLET PO SCH (09:27)
[2019-12-23] MEDS: APIXABAN 5 MG TABLET PO SCH ×2 (09:27→17:24)
[2019-12-23] MEDS: CITALOPRAM HYDROBROMIDE 10MG TABLET PO SCH (09:27)
[2019-12-23] MEDS: POTASSIUM CHLORIDE 20MEQ TABLET SR PO SCH (09:28)
[2019-12-23] MEDS: GLIMEPIRIDE 2MG TABLET PO SCH ×2 (09:28→17:24)
[2019-12-23] MEDS: METHIMAZOLE 5MG TABLET PO SCH (09:29)
[2019-12-23] MEDS: LINAGLIPTIN 5MG TABLET PO SCH (09:29)
[2019-12-23] MEDS: FERROUS SULFATE 325MG TABLET PO SCH ×3 (10:41→17:24)
[2019-12-23] MEDS: DILTIAZEM HCL 120MG CAPSULE CD 24HR PO SCH ×2 (10:41→22:00)
[2019-12-23 11:56] VITALS: BP 126/71
[2019-12-23 16:00] VITALS: BP 116/64
[2019-12-23 20:48] VITALS: BP 130/66
[2019-12-24 00:22] VITALS: BP 128/74
[2019-12-24 04:00] VITALS: BP 133/78
[2019-12-24] MEDS ORDERED: HYDROCODONE/ACETAMINOPHEN 10/325MG TABLET PO NR (05:15)
[2019-12-24] MEDS: BLOOD SUGAR DIAGNOSTIC STRIP TEST SCH ×4 (06:21→20:36)
[2019-12-24 07:21] LABS: CHLORIDE 98 mEq/L (98-107)
[2019-12-24 07:22] LABS: BASOPHILS % 0.3 % (0.0-2.0); EOSINOPHILS % 0.6 % (0.0-5.0); HEMATOCRIT. 33.8 % (36.0-48.0); HEMOGLOBIN. 10.9 g/dL (12.0-16.0); LYMPHOCYTES % 12.6 % (20.0-50.0); MEAN CORPUSCULAR HEMOGLOBIN 23.4 pg (28.0-32.0); MEAN PLATELET VOLUME 7.5 fl (7.4-10.4); MONOCYTES % 7.7 % (2.0-8.0); NEUTROPHILS % 78.8 % (40.0-76.0); PLATELET 427 x1000/uL (130-400); RED BLOOD CELL COUNT 4.63 mill/uL (4.2-5.4); RED CELL DISTRIBUTION WIDTH 18.4 % (11.6-14.6)
[2019-12-24 08:00] VITALS: BP 130/73
[2019-12-24] MEDS: INSULIN LISPRO 100 UNITS/ML SUBCUT SCH ×4 (08:00→21:09)
[2019-12-24] MEDS: GLIMEPIRIDE 2MG TABLET PO SCH ×2 (09:54→17:53)
[2019-12-24] MEDS: POTASSIUM CHLORIDE 20MEQ TABLET SR PO SCH (09:55)
[2019-12-24] MEDS: CITALOPRAM HYDROBROMIDE 10MG TABLET PO SCH (09:55)
[2019-12-24] MEDS: ASCORBIC ACID 500 MG TABLET PO SCH ×2 (09:55→17:52)
[2019-12-24] MEDS: METHIMAZOLE 5MG TABLET PO SCH (09:55)
[2019-12-24] MEDS: FERROUS SULFATE 325MG TABLET PO SCH ×3 (09:55→17:52)
[2019-12-24] MEDS: MULTIVITAMINS,THER W-MINERALS TABLET PO SCH (09:55)
[2019-12-24] MEDS: FUROSEMIDE 40MG TABLET PO SCH ×2 (09:56→21:07)
[2019-12-24] MEDS: LINAGLIPTIN 5MG TABLET PO SCH (09:56)
[2019-12-24] MEDS: PREDNISONE 20MG TABLET PO SCH (09:56)
[2019-12-24] MEDS: HYDROCODONE/ACETAMINOPHEN 10/325MG TABLET PO PRN ×3 (09:57→19:50)
[2019-12-24] MEDS: UMECLIDINIUM BROMIDE 1 INH BLST.W.DEV IH SCH ×2 (10:42→10:44)
[2019-12-24] MEDS: FLUTICASONE/VILANTEROL 200-25 BLST.W.DEV ORI SCH ×2 (10:42→10:44)
[2019-12-24] MEDS: DILTIAZEM HCL 120MG CAPSULE CD 24HR PO SCH ×2 (10:42→21:09)
[2019-12-24] MEDS: APIXABAN 5 MG TABLET PO SCH ×2 (10:42→17:53)
[2019-12-24 12:00] VITALS: BP 132/78
[2019-12-24 16:00] VITALS: BP 110/62
[2019-12-24 20:00] VITALS: BP 134/65
[2019-12-25] VITALS: BP 127/81
[2019-12-25 04:00] VITALS: BP 135/82
[2019-12-25] MEDS: HYDROCODONE/ACETAMINOPHEN 10/325MG TABLET PO PRN ×4 (04:31→17:22)
[2019-12-25] MEDS: BLOOD SUGAR DIAGNOSTIC STRIP TEST SCH ×3 (05:51→17:05)
[2019-12-25 08:00] VITALS: BP 142/80
[2019-12-25] MEDS: INSULIN LISPRO 100 UNITS/ML SUBCUT SCH ×3 (08:10→17:22)
[2019-12-25] MEDS: PREDNISONE 20MG TABLET PO SCH (09:01)
[2019-12-25] MEDS: APIXABAN 5 MG TABLET PO SCH ×2 (09:01→17:24)
[2019-12-25] MEDS: MULTIVITAMINS,THER W-MINERALS TABLET PO SCH (09:01)
[2019-12-25] MEDS: DILTIAZEM HCL 120MG CAPSULE CD 24HR PO SCH (09:01)
[2019-12-25] MEDS: POTASSIUM CHLORIDE 20MEQ TABLET SR PO SCH (09:01)
[2019-12-25] MEDS: FUROSEMIDE 40MG TABLET PO SCH (09:01)
[2019-12-25] MEDS: FERROUS SULFATE 325MG TABLET PO SCH ×3 (09:01→17:22)
[2019-12-25] MEDS: GLIMEPIRIDE 2MG TABLET PO SCH ×2 (09:09→17:21)
[2019-12-25] MEDS: CITALOPRAM HYDROBROMIDE 10MG TABLET PO SCH (09:09)
[2019-12-25] MEDS: ASCORBIC ACID 500 MG TABLET PO SCH ×2 (09:09→17:22)
[2019-12-25] MEDS: METHIMAZOLE 5MG TABLET PO SCH (09:09)
[2019-12-25] MEDS: LINAGLIPTIN 5MG TABLET PO SCH (09:09)
[2019-12-25] MEDS: UMECLIDINIUM BROMIDE 1 INH BLST.W.DEV IH SCH (09:10)
[2019-12-25] MEDS: FLUTICASONE/VILANTEROL 200-25 BLST.W.DEV ORI SCH (09:10)
[2019-12-25 12:00] VITALS: BP 136/80
[2019-12-25 12:07] VITALS: BP_SYST 131; BP_SYST 132; BP_DIAS 84; BP_DIAS 86
[2019-12-25 16:00] VITALS: BP 131/86
[2020-03-12] MEDS ORDERED: BRIN8DRO EACHEYE (02:28)
[2020-03-12] MEDS ORDERED: AZOPT BOTHEYE (02:28)
[2020-03-12] MEDS ORDERED: LATA2.5D2 EACHEYE (02:28)
[2020-03-12] MEDS ORDERED: FURO-151 PO (03:02)
== END 2019-12-25 18:10 | disposition home health service (06) | DRG 178 ==
LOC: ER 18:02 → 7WST 23:44 → EDBEDREQ 23:49 → EDBEDREQTM 23:49 → EDBEDREQ 12-18 00:09 → ENRESERV 12-18 19:40
PROVIDERS: ADMIT Internal Medicine Pulmonary Disease; ATTEND Internal Medicine Pulmonary Disease
DX: U07.1 COVID-19 (principal); J44.1 Chronic obstructive pulmonary disease with (acute) exacerbation; Z68.41 Body mass index [BMI] 40.0-44.9, adult; I48.20 Chronic atrial fibrillation, unspecified; I50.22 Chronic systolic (congestive) heart failure; J96.10 Chronic respiratory failure, unspecified whether with hypoxia or hypercapnia; J44.0 Chronic obstructive pulmonary disease with (acute) lower respiratory infection; I27.81 Cor pulmonale (chronic); D64.9 Anemia, unspecified; E11.9 Type 2 diabetes mellitus without complications; E66.01 Morbid (severe) obesity due to excess calories; E78.5 Hyperlipidemia, unspecified; F41.9 Anxiety disorder, unspecified; G47.30 Sleep apnea, unspecified; G89.29 Other chronic pain; I11.0 Hypertensive heart disease with heart failure; I27.29 Other secondary pulmonary hypertension; D12.6 Benign neoplasm of colon, unspecified; E05.90 Thyrotoxicosis, unspecified without thyrotoxic crisis or storm; E66.9 Obesity, unspecified; I35.0 Nonrheumatic aortic (valve) stenosis; Z86.010 Personal history of colon polyps; Z87.891 Personal history of nicotine dependence; Z90.710 Acquired absence of both cervix and uterus; Z98.41 Cataract extraction status, right eye; Z99.81 Dependence on supplemental oxygen; Z79.52 Long term (current) use of systemic steroids; Z80.1 Family history of malignant neoplasm of trachea, bronchus and lung; Z82.49 Family history of ischemic heart disease and other diseases of the circulatory system; Z83.3 Family history of diabetes mellitus; Z79.899 Other long term (current) drug therapy
CPT/HCPCS: 36415; 36600; 71045; 80048; 80053; 82375; 82728; 82805; 82962; 83036; 83605; 83615; 83735; 83880; 84145; 84484; 85025; 85379; 85651; 86140; 93005; 94640; 99285; J0456; J0696; J1815; J1940; J2270; J2405; J2930; J3490; J7060; J7512; U0003-CS

== ENCOUNTER 2020-01-17 18:40 | Inpatient (IN) | payer MEDICARE, MEDICAID ==
[~2020-01-17] VITALS: Ht 157.5 cm; Wt 114.3 kg
[~2020-01-17 18:40] MED LIST changes: -ALBU18HF2 IH; +ALPR0.25 MT; +AMBR10TA3 MT; -AMBR10TA3 PO; +ATROV INH; -AZOPT EACHEYE; -CITA20TA19 PO; -DILT120C88 PO; -DOCU250C69 PO; -ERGO500013 PO; +ESCI5SOL2 PO; +FLUT1BLS INH; -FLUT1DIS6 INH; -FURO40TA5 PO; +GLIM4TAB36 MT; -HYDR-4005 PO; +HYDR-4009 MT; +METF-414 MT; -METF-414 PO; -METH5TAB68 PO; +MULT-1146 MT; +TAP5 PO; -TRAV2.5D EACHEYE
[2020-01-17 19:14] LABS: BASOPHILS % 0.8 % (0.0-2.0); EOSINOPHILS % 3.8 % (0.0-5.0); HEMATOCRIT. 30.3 % (36.0-48.0); HEMOGLOBIN. 9.6 g/dL (12.0-16.0); LYMPHOCYTES % 12.7 % (20.0-50.0); MEAN CORPUSCULAR HEMOGLOBIN 23.3 pg (28.0-32.0); MEAN CORPUSCULAR VOLUME 73.3 fL (81.0-99.0); MEAN PLATELET VOLUME 7.3 fl (7.4-10.4); MONOCYTES % 8.5 % (2.0-8.0); NEUTROPHILS % 74.2 % (40.0-76.0); PLATELET 300 x1000/uL (130-400); RED BLOOD CELL COUNT 4.14 mill/uL (4.2-5.4)
[2020-01-17 19:19] LABS: CHLORIDE 106 mEq/L (98-107)
[2020-01-17] MEDS ORDERED: IPRATROPIUM BROMIDE (0.02%) 0.5MG/2.5ML NEB HHN STA (19:54)
[2020-01-17] MEDS ORDERED: METHYLPREDNISOLONE SOD SUCC 125 MG/2 ML VIAL IV STA (19:54)
[2020-01-17] MEDS ORDERED: ALBUTEROL (0.083%) 2.5MG/3ML NEB HHN STA (19:54)
[2020-01-17] MEDS ORDERED: MORPHINE SULFATE 4 MG/ML CPJ (NOT FOR IM USE) IV ONE (20:00)
[2020-01-17 22:03] VITALS: BP 148/69
[2020-01-17 22:35] VITALS: BP 148/69
[2020-01-17] MEDS ORDERED: DEXTROSE 50% WATER 50ML SYRINGE IV PRN (23:45)
[2020-01-18] VITALS (12 sets, daily range): BP systolic 120–152; BP diastolic 65–89
[2020-01-18] MEDS: HYDROCODONE/ACETAMINOPHEN 5/325MG TABLET PO PRN ×4 (01:06→13:53)
[2020-01-18] MEDS: IPRATROPIUM/ALBUTEROL 0.5-3(2.5)MG/3ML NEB HHN SCH ×5 (04:20→21:25)
[2020-01-18 07:03] LABS: HEMATOCRIT. 29.8 % (36.0-48.0); HEMOGLOBIN. 9.3 g/dL (12.0-16.0); MEAN CORPUSCULAR HEMOGLOBIN 22.8 pg (28.0-32.0); MEAN CORPUSCULAR VOLUME 73.1 fL (81.0-99.0); MEAN PLATELET VOLUME 7.5 fl (7.4-10.4); PLATELET 289 x1000/uL (130-400); RED BLOOD CELL COUNT 4.08 mill/uL (4.2-5.4); RED CELL DISTRIBUTION WIDTH 18.6 % (11.6-14.6)
[2020-01-18] MEDS ORDERED: INSULIN LISPRO 100 UNITS/ML SUBCUT SCH (07:20)
[2020-01-18 07:49] LABS: CHLORIDE 110 mEq/L (98-107)
[2020-01-18] MEDS: CITALOPRAM HYDROBROMIDE 10MG TABLET PO SCH (08:01)
[2020-01-18] MEDS: METFORMIN HCL 500MG TABLET PO SCH (08:01)
[2020-01-18] MEDS: METHIMAZOLE 5MG TABLET PO SCH (08:02)
[2020-01-18] MEDS: ASCORBIC ACID 500 MG TABLET PO SCH ×2 (08:03→16:15)
[2020-01-18] MEDS: PREDNISONE 20MG TABLET PO SCH (08:03)
[2020-01-18] MEDS: FERROUS SULFATE 325MG TABLET PO SCH ×2 (08:03→16:14)
[2020-01-18] MEDS: DILTIAZEM HCL 120MG CAPSULE CD 24HR PO SCH (08:03)
[2020-01-18] MEDS: FUROSEMIDE 40MG/4ML VIAL IVP SCH ×2 (08:04→20:45)
[2020-01-18] MEDS: APIXABAN 5 MG TABLET PO SCH ×2 (08:04→16:15)
[2020-01-18] MEDS: POTASSIUM CHLORIDE 20MEQ TABLET SR PO SCH (08:04)
[2020-01-18] MEDS: MULTIVITAMINS,THER W-MINERALS TABLET PO SCH (08:04)
[2020-01-18] MEDS: GLIMEPIRIDE 2MG TABLET PO SCH ×2 (08:04→16:15)
[2020-01-18 08:21] LABS: CREATINE KINASE 35 IU/L (26-192)
[2020-01-18 08:23] LABS: CREATINE KINASE MB FRACTION 1.4 ng/mL (0.5-3.6)
[2020-01-18] MEDS ORDERED: DEXTROSE 50% WATER 50ML SYRINGE IV PRN (08:30)
[2020-01-18] MEDS ORDERED: APIXABAN 5 MG TABLET PO SCH (09:00)
[2020-01-18] MEDS ORDERED: BLOOD SUGAR DIAGNOSTIC STRIP TEST SCH (09:00)
[2020-01-18] MEDS ORDERED: ERGOCALCIFEROL 50000UNITS CAPSULE PO SCH (09:00)
[2020-01-18] MEDS ORDERED: FAMOTIDINE 20MG/2ML VIAL IV SCH (09:00)
[2020-01-18 10:43] LABS: BG BASE EXCESS -5.2 mmol/L (-2.0-2.0); BG CARBOXYHEMOGLOBIN 0.3 % (0.5-1.5); BG DEOXYHEMOGLOBIN 5.4 % (0.0-5.0); BG FRACTION INSPIRED OXYGEN 32; BG HCO3 ACT 18.5 mmol/L (22.0-26.0); BG METHEMOGLOBIN 0.2 % (0.0-1.5); BG OXYGEN SATURATION 94.6 % (92.0-98.5); BG OXYHEMOGLOBIN 94.1 % (94.0-97.0); BG PH 7.409 (7.350-7.450); BG PO2 78.6 mmHg (75.0-100.0); BG SAMPLE SITE RIGHT RADIAL; BG TOTAL HEMOGLOBIN 10.2 g/dL (12.0-18.0); BG VENT MODE NASAL CANNULA
[2020-01-18] MEDS: BLOOD SUGAR DIAGNOSTIC STRIP TEST SCH ×3 (11:21→20:38)
[2020-01-18] MEDS: ASPIRIN 81MG TABLET PO SCH (11:25)
[2020-01-18] MEDS: INSULIN LISPRO 100 UNITS/ML SUBCUT SCH ×3 (11:25→20:44)
[2020-01-18] MEDS: LOSARTAN POTASSIUM 25 MG TABLET PO SCH (11:25)
[2020-01-18] MEDS ORDERED: LIDOCAINE HCL/PF 1% 2ML VIAL ONE (12:19)
[2020-01-18] MEDS ORDERED: HYDROCODONE/ACETAMINOPHEN 5/325MG TABLET PO NR (14:45)
[2020-01-18 15:48] LABS: PLATELET ESTIMATE NORMAL
[2020-01-18 16:57] LABS: CREATINE KINASE 34 IU/L (26-192)
[2020-01-18 16:58] LABS: CREATINE KINASE MB FRACTION 1.2 ng/mL (0.5-3.6)
[2020-01-18] MEDS: HYDROCODONE/ACETAMINOPHEN 10/325MG TABLET PO PRN (18:54)
[2020-01-18] MEDS: ATORVASTATIN CALCIUM 20MG TABLET PO SCH (20:45)
[2020-01-18] MEDS: FAMOTIDINE 20MG TABLET PO SCH (20:45)
[2020-01-19] VITALS (12 sets, daily range): BP systolic 131–159; BP diastolic 59–97
[2020-01-19] MEDS: HYDROCODONE/ACETAMINOPHEN 10/325MG TABLET PO PRN ×6 (00:07→22:59)
[2020-01-19] MEDS: IPRATROPIUM/ALBUTEROL 0.5-3(2.5)MG/3ML NEB HHN SCH ×6 (01:33→21:00)
[2020-01-19] MEDS: BLOOD SUGAR DIAGNOSTIC STRIP TEST SCH ×4 (06:09→20:32)
[2020-01-19] MEDS: INSULIN LISPRO 100 UNITS/ML SUBCUT SCH ×4 (06:13→20:40)
[2020-01-19 07:20] LABS: CHLORIDE 103 mEq/L (98-107)
[2020-01-19 08:10] LABS: BASOPHILS % 0.2 % (0.0-2.0); EOSINOPHILS % 0.1 % (0.0-5.0); HEMATOCRIT. 30.8 % (36.0-48.0); HEMOGLOBIN. 9.6 g/dL (12.0-16.0); LYMPHOCYTES % 8.4 % (20.0-50.0); MEAN CORPUSCULAR HEMOGLOBIN 22.8 pg (28.0-32.0); MEAN CORPUSCULAR VOLUME 73.5 fL (81.0-99.0); MEAN PLATELET VOLUME 7.5 fl (7.4-10.4); NEUTROPHILS % 83.3 % (40.0-76.0); PLATELET 345 x1000/uL (130-400); RED BLOOD CELL COUNT 4.19 mill/uL (4.2-5.4); RED CELL DISTRIBUTION WIDTH 18.7 % (11.6-14.6)
[2020-01-19] MEDS: FAMOTIDINE 20MG TABLET PO SCH ×2 (08:37→20:43)
[2020-01-19] MEDS: PREDNISONE 20MG TABLET PO SCH (08:37)
[2020-01-19] MEDS: FERROUS SULFATE 325MG TABLET PO SCH ×2 (08:37→17:12)
[2020-01-19] MEDS: GLIMEPIRIDE 2MG TABLET PO SCH ×2 (08:37→17:12)
[2020-01-19] MEDS: MULTIVITAMINS,THER W-MINERALS TABLET PO SCH (08:38)
[2020-01-19] MEDS: APIXABAN 5 MG TABLET PO SCH ×2 (08:38→17:12)
[2020-01-19] MEDS: ASCORBIC ACID 500 MG TABLET PO SCH ×2 (08:38→17:12)
[2020-01-19] MEDS: METFORMIN HCL 500MG TABLET PO SCH (08:38)
[2020-01-19] MEDS: POTASSIUM CHLORIDE 20MEQ TABLET SR PO SCH (08:38)
[2020-01-19] MEDS: ASPIRIN 81MG TABLET PO SCH (08:39)
[2020-01-19] MEDS: DILTIAZEM HCL 120MG CAPSULE CD 24HR PO SCH (08:39)
[2020-01-19] MEDS: METHIMAZOLE 5MG TABLET PO SCH (08:39)
[2020-01-19] MEDS: LOSARTAN POTASSIUM 25 MG TABLET PO SCH ×2 (08:39→20:43)
[2020-01-19] MEDS: FUROSEMIDE 40MG/4ML VIAL IVP SCH ×2 (08:40→20:43)
[2020-01-19] MEDS: CITALOPRAM HYDROBROMIDE 10MG TABLET PO SCH (08:46)
[2020-01-19] MEDS: ATORVASTATIN CALCIUM 20MG TABLET PO SCH (20:43)
[2020-01-20] VITALS (12 sets, daily range): BP systolic 122–152; BP diastolic 67–84
[2020-01-20] MEDS: IPRATROPIUM/ALBUTEROL 0.5-3(2.5)MG/3ML NEB HHN SCH ×6 (01:00→22:01)
[2020-01-20] MEDS: HYDROCODONE/ACETAMINOPHEN 10/325MG TABLET PO PRN ×4 (05:20→20:00)
[2020-01-20] MEDS: INSULIN LISPRO 100 UNITS/ML SUBCUT SCH ×5 (06:16→20:43)
[2020-01-20] MEDS: BLOOD SUGAR DIAGNOSTIC STRIP TEST SCH ×4 (06:16→20:50)
[2020-01-20 08:02] LABS: BASOPHILS % 0.3 % (0.0-2.0); EOSINOPHILS % 0.4 % (0.0-5.0); HEMATOCRIT. 31.8 % (36.0-48.0); LYMPHOCYTES % 10.5 % (20.0-50.0); MEAN CORPUSCULAR HEMOGLOBIN 22.9 pg (28.0-32.0); MEAN PLATELET VOLUME 7.5 fl (7.4-10.4); MONOCYTES % 8.3 % (2.0-8.0); NEUTROPHILS % 80.5 % (40.0-76.0); PLATELET 388 x1000/uL (130-400); RED BLOOD CELL COUNT 4.36 mill/uL (4.2-5.4); RED CELL DISTRIBUTION WIDTH 18.9 % (11.6-14.6)
[2020-01-20 08:04] LABS: CHLORIDE 101 mEq/L (98-107)
[2020-01-20] MEDS: APIXABAN 5 MG TABLET PO SCH ×2 (08:05→16:19)
[2020-01-20] MEDS: FUROSEMIDE 40MG/4ML VIAL IVP SCH ×2 (08:05→20:43)
[2020-01-20] MEDS: GLIMEPIRIDE 2MG TABLET PO SCH ×2 (08:05→16:19)
[2020-01-20] MEDS: CITALOPRAM HYDROBROMIDE 10MG TABLET PO SCH (08:05)
[2020-01-20] MEDS: PREDNISONE 20MG TABLET PO SCH (08:05)
[2020-01-20] MEDS: METFORMIN HCL 500MG TABLET PO SCH (08:05)
[2020-01-20] MEDS: FAMOTIDINE 20MG TABLET PO SCH ×2 (08:05→20:44)
[2020-01-20] MEDS: ASCORBIC ACID 500 MG TABLET PO SCH ×2 (08:06→16:19)
[2020-01-20] MEDS: METHIMAZOLE 5MG TABLET PO SCH (08:06)
[2020-01-20] MEDS: DILTIAZEM HCL 120MG CAPSULE CD 24HR PO SCH (08:06)
[2020-01-20] MEDS: POTASSIUM CHLORIDE 20MEQ TABLET SR PO SCH (08:06)
[2020-01-20] MEDS: ASPIRIN 81MG TABLET PO SCH (08:06)
[2020-01-20] MEDS: FERROUS SULFATE 325MG TABLET PO SCH ×2 (08:06→16:19)
[2020-01-20] MEDS: MULTIVITAMINS,THER W-MINERALS TABLET PO SCH (08:06)
[2020-01-20 08:13] LABS: PHOSPHORUS 3.1 mg/dL (2.5-4.9)
[2020-01-20] MEDS: LOSARTAN POTASSIUM 25 MG TABLET PO SCH (08:16)
[2020-01-20] MEDS: ATORVASTATIN CALCIUM 20MG TABLET PO SCH (20:43)
[2020-01-20] MEDS: ALPRAZOLAM 0.25 MG TABLET PO PRN (20:44)
[2020-01-21] VITALS (12 sets, daily range): BP systolic 115–141; BP diastolic 68–91
[2020-01-21] MEDS: IPRATROPIUM/ALBUTEROL 0.5-3(2.5)MG/3ML NEB HHN SCH ×5 (01:38→22:13)
[2020-01-21] MEDS: HYDROCODONE/ACETAMINOPHEN 10/325MG TABLET PO PRN ×5 (05:46→23:08)
[2020-01-21 06:27] LABS: BASOPHILS % 0.2 % (0.0-2.0); EOSINOPHILS % 0.5 % (0.0-5.0); HEMATOCRIT. 31.6 % (36.0-48.0); HEMOGLOBIN. 9.9 g/dL (12.0-16.0); LYMPHOCYTES % 11.9 % (20.0-50.0); MEAN CORPUSCULAR HEMOGLOBIN 22.9 pg (28.0-32.0); MEAN CORPUSCULAR VOLUME 72.8 fL (81.0-99.0); MEAN PLATELET VOLUME 7.5 fl (7.4-10.4); MONOCYTES % 10.5 % (2.0-8.0); NEUTROPHILS % 76.9 % (40.0-76.0); PLATELET 419 x1000/uL (130-400); RED BLOOD CELL COUNT 4.34 mill/uL (4.2-5.4); RED CELL DISTRIBUTION WIDTH 18.7 % (11.6-14.6)
[2020-01-21 06:33] LABS: CHLORIDE 100 mEq/L (98-107)
[2020-01-21] MEDS: BLOOD SUGAR DIAGNOSTIC STRIP TEST SCH ×4 (06:59→20:55)
[2020-01-21] MEDS ORDERED: POTASSIUM CHLORIDE 20MEQ/PACKET PO NR (07:00)
[2020-01-21] MEDS: INSULIN LISPRO 100 UNITS/ML SUBCUT SCH ×4 (07:20→20:49)
[2020-01-21] MEDS: FUROSEMIDE 40MG/4ML VIAL IVP SCH ×2 (08:50→20:48)
[2020-01-21] MEDS: MULTIVITAMINS,THER W-MINERALS TABLET PO SCH (08:52)
[2020-01-21] MEDS: FERROUS SULFATE 325MG TABLET PO SCH ×2 (08:52→16:52)
[2020-01-21] MEDS: METFORMIN HCL 500MG TABLET PO SCH (08:52)
[2020-01-21] MEDS: METHIMAZOLE 5MG TABLET PO SCH (08:52)
[2020-01-21] MEDS: POTASSIUM CHLORIDE 20MEQ TABLET SR PO SCH (08:52)
[2020-01-21] MEDS: DILTIAZEM HCL 180MG CAPSULE CD 24HR PO SCH (08:54)
[2020-01-21] MEDS: ASPIRIN 81MG TABLET PO SCH (08:55)
[2020-01-21] MEDS: FAMOTIDINE 20MG TABLET PO SCH ×2 (08:55→20:48)
[2020-01-21] MEDS: APIXABAN 5 MG TABLET PO SCH ×2 (08:55→16:52)
[2020-01-21] MEDS: PREDNISONE 20MG TABLET PO SCH (08:55)
[2020-01-21] MEDS: ASCORBIC ACID 500 MG TABLET PO SCH ×2 (08:55→16:52)
[2020-01-21] MEDS: CITALOPRAM HYDROBROMIDE 10MG TABLET PO SCH (08:56)
[2020-01-21] MEDS: GLIMEPIRIDE 2MG TABLET PO SCH ×2 (08:56→16:52)
[2020-01-21] MEDS ORDERED: ESCI5TAB12 MT (15:42)
[2020-01-21] MEDS: ALPRAZOLAM 0.25 MG TABLET PO PRN (20:48)
[2020-01-21] MEDS: ATORVASTATIN CALCIUM 20MG TABLET PO SCH (20:48)
[2020-01-22] VITALS (12 sets, daily range): BP systolic 105–152; BP diastolic 54–89
[2020-01-22] MEDS: IPRATROPIUM/ALBUTEROL 0.5-3(2.5)MG/3ML NEB HHN SCH ×5 (00:53→15:25)
[2020-01-22] MEDS: HYDROCODONE/ACETAMINOPHEN 10/325MG TABLET PO PRN ×4 (04:41→18:03)
[2020-01-22 06:43] LABS: BASOPHILS % 0.2 % (0.0-2.0); EOSINOPHILS % 0.4 % (0.0-5.0); HEMATOCRIT. 33.5 % (36.0-48.0); HEMOGLOBIN. 10.5 g/dL (12.0-16.0); LYMPHOCYTES % 12.1 % (20.0-50.0); MEAN CORPUSCULAR HEMOGLOBIN 22.6 pg (28.0-32.0); MEAN CORPUSCULAR VOLUME 72.1 fL (81.0-99.0); MEAN PLATELET VOLUME 7.5 fl (7.4-10.4); MONOCYTES % 7.8 % (2.0-8.0); NEUTROPHILS % 79.5 % (40.0-76.0); PLATELET 447 x1000/uL (130-400); RED BLOOD CELL COUNT 4.65 mill/uL (4.2-5.4); RED CELL DISTRIBUTION WIDTH 18.9 % (11.6-14.6)
[2020-01-22] MEDS: BLOOD SUGAR DIAGNOSTIC STRIP TEST SCH ×3 (06:49→16:26)
[2020-01-22 07:07] LABS: CHLORIDE 97 mEq/L (98-107)
[2020-01-22] MEDS: INSULIN LISPRO 100 UNITS/ML SUBCUT SCH ×3 (07:20→16:28)
[2020-01-22] MEDS: FUROSEMIDE 40MG/4ML VIAL IVP SCH (08:13)
[2020-01-22] MEDS: FERROUS SULFATE 325MG TABLET PO SCH ×2 (08:13→16:29)
[2020-01-22] MEDS: PREDNISONE 20MG TABLET PO SCH (08:16)
[2020-01-22] MEDS: GLIMEPIRIDE 2MG TABLET PO SCH ×2 (08:16→16:29)
[2020-01-22] MEDS: DILTIAZEM HCL 180MG CAPSULE CD 24HR PO SCH (08:17)
[2020-01-22] MEDS: APIXABAN 5 MG TABLET PO SCH ×2 (08:18→16:29)
[2020-01-22] MEDS: ASPIRIN 81MG TABLET PO SCH (08:18)
[2020-01-22] MEDS: CITALOPRAM HYDROBROMIDE 10MG TABLET PO SCH (08:18)
[2020-01-22] MEDS: POTASSIUM CHLORIDE 20MEQ TABLET SR PO SCH (08:19)
[2020-01-22] MEDS: MULTIVITAMINS,THER W-MINERALS TABLET PO SCH (08:19)
[2020-01-22] MEDS: METFORMIN HCL 500MG TABLET PO SCH (08:19)
[2020-01-22] MEDS: FAMOTIDINE 20MG TABLET PO SCH (08:19)
[2020-01-22] MEDS: METHIMAZOLE 5MG TABLET PO SCH (08:19)
[2020-01-22] MEDS: ASCORBIC ACID 500 MG TABLET PO SCH ×2 (08:19→16:29)
[2020-03-12] MEDS ORDERED: LATA2.5D2 EACHEYE (02:28)
[2020-03-12] MEDS ORDERED: AZOPT BOTHEYE (02:28)
[2020-03-12] MEDS ORDERED: BRIN8DRO EACHEYE (02:28)
[2020-03-12] MEDS ORDERED: FURO-151 PO (03:02)
== END 2020-01-22 18:45 | disposition home or self-care (01) | DRG 391 ==
LOC: ER 18:50 → EDBEDREQTM 20:24 → EDBEDREQ 20:24 → ENRESERV 20:44 → 3WST 21:36
PROVIDERS: ADMIT Internal Medicine Pulmonary Disease; ATTEND Internal Medicine Pulmonary Disease
PROC: 5A09357 Assistance with Respiratory Ventilation, Less than 24 Consecutive Hours, Continuous Positive Airway Pressure (ICD-10-PCS; 2020-01-17)
PROC: 4B02XSZ Measurement of Cardiac Pacemaker, External Approach (ICD-10-PCS; principal; 2020-01-18)
PROC: 5A09357 Assistance with Respiratory Ventilation, Less than 24 Consecutive Hours, Continuous Positive Airway Pressure (ICD-10-PCS; 2020-01-18)
PROC: 5A09357 Assistance with Respiratory Ventilation, Less than 24 Consecutive Hours, Continuous Positive Airway Pressure (ICD-10-PCS; 2020-01-19)
PROC: 5A09357 Assistance with Respiratory Ventilation, Less than 24 Consecutive Hours, Continuous Positive Airway Pressure (ICD-10-PCS; 2020-01-20)
PROC: 5A09357 Assistance with Respiratory Ventilation, Less than 24 Consecutive Hours, Continuous Positive Airway Pressure (ICD-10-PCS; 2020-01-21)
PROC: 5A09357 Assistance with Respiratory Ventilation, Less than 24 Consecutive Hours, Continuous Positive Airway Pressure (ICD-10-PCS; 2020-01-22)
DX: K21.9 Gastro-esophageal reflux disease without esophagitis (principal); J96.21 Acute and chronic respiratory failure with hypoxia; I48.92 Unspecified atrial flutter; J44.1 Chronic obstructive pulmonary disease with (acute) exacerbation; Z68.42 Body mass index [BMI] 45.0-49.9, adult; I48.20 Chronic atrial fibrillation, unspecified; I50.32 Chronic diastolic (congestive) heart failure; I11.0 Hypertensive heart disease with heart failure; E11.9 Type 2 diabetes mellitus without complications; E66.9 Obesity, unspecified; D64.9 Anemia, unspecified; E78.5 Hyperlipidemia, unspecified; F41.9 Anxiety disorder, unspecified; G47.30 Sleep apnea, unspecified; I27.21 Secondary pulmonary arterial hypertension; D12.6 Benign neoplasm of colon, unspecified; G89.29 Other chronic pain; E87.6 Hypokalemia; M54.5 Low back pain; I77.1 Stricture of artery; D69.6 Thrombocytopenia, unspecified; E02 Subclinical iodine-deficiency hypothyroidism; I08.3 Combined rheumatic disorders of mitral, aortic and tricuspid valves; I27.81 Cor pulmonale (chronic); Z96.1 Presence of intraocular lens; Z95.0 Presence of cardiac pacemaker; Z98.41 Cataract extraction status, right eye; Z91.19 Patient's noncompliance with other medical treatment and regimen; Z90.710 Acquired absence of both cervix and uterus; Z87.891 Personal history of nicotine dependence; Z79.52 Long term (current) use of systemic steroids; Z80.1 Family history of malignant neoplasm of trachea, bronchus and lung; Z82.49 Family history of ischemic heart disease and other diseases of the circulatory system; Z83.3 Family history of diabetes mellitus; Z98.891 History of uterine scar from previous surgery
CPT/HCPCS: 36415; 36600; 71045; 80048; 80053; 82375; 82550; 82553; 82805; 82962; 83036; 83735; 83880; 84100; 84484; 85025; 93005; 93306; 94640; 94660; 99291; J1815; J1940; J2270; J2930; J3490; J7512

== ENCOUNTER 2020-10-15 18:58 | Inpatient (IN) | payer MEDICARE, MEDICAID ==
[~2020-10-15] VITALS: Ht 162.6 cm; Wt 122.5 kg
[~2020-10-15 18:58] MED LIST changes: -ALPR0.25 MT; +AZOPT BOTHEYE; +BRIN8DRO EACHEYE; -ESCI5SOL2 PO; +ESCI5TAB16 MT; -FLUT1BLS INH; +FURO-151 PO; +LATA2.5D14 EACHEYE; -SPIR25TA6 PO
[2020-10-15] MEDS ORDERED: LIDOCAINE HCL/PF 1% 2ML VIAL ONE (19:02)
[2020-10-15] MEDS ORDERED: NITROGLYCERIN OINT 1GM/INCH UDPKT TD ONE (19:15)
[2020-10-15] MEDS ORDERED: ASPIRIN 81MG TABLET PO ONE (19:15)
[2020-10-15] MEDS ORDERED: FUROSEMIDE 40MG/4ML VIAL IV ONE (19:15)
[2020-10-15 19:25] LABS: BASOPHILS % 0.1 % (0.0-2.0); EOSINOPHILS % 0.8 % (0.0-5.0); HEMOGLOBIN. 7.8 g/dL (12.0-16.0); LYMPHOCYTES % 14.4 % (20.0-50.0); MEAN CORPUSCULAR HEMOGLOBIN 22.6 pg (28.0-32.0); MEAN CORPUSCULAR VOLUME 72.2 fL (81.0-99.0); MEAN PLATELET VOLUME 7.1 fl (7.4-10.4); MONOCYTES % 9.3 % (2.0-8.0); NEUTROPHILS % 75.4 % (40.0-76.0); PLATELET 192 x1000/uL (130-400); RED BLOOD CELL COUNT 3.47 mill/uL (4.2-5.4); RED CELL DISTRIBUTION WIDTH 18.7 % (11.6-14.6)
[2020-10-15 19:30] LABS: CHLORIDE 104 mEq/L (98-107)
[2020-10-15 19:37] LABS: INR 0.9; PARTIAL THROMBOPLASTIN TIME 22.8 sec (23.4-31.0); PROTHROMBIN TIME 9.8 sec (9.6-11.0)
[2020-10-15] MEDS ORDERED: ONDANSETRON HCL 4MG/2ML INJ IV STA (20:16)
[2020-10-15] MEDS ORDERED: MORPHINE SULFATE 4 MG/ML CPJ (NOT FOR IM USE) IV STA (20:16)
[2020-10-15] MEDS ORDERED: LEVOFLOXACIN 750MG PREMIX 150 ML IV ONE (20:45)
[2020-10-15 21:04] LABS: BG BASE EXCESS -0.8 mmol/L (-2.0-2.0); BG CARBOXYHEMOGLOBIN 0.3 % (0.5-1.5); BG DEOXYHEMOGLOBIN 1.3 % (0.0-5.0); BG FRACTION INSPIRED OXYGEN 50; BG HCO3 ACT 24.5 mmol/L (22.0-26.0); BG METHEMOGLOBIN 0.5 % (0.0-1.5); BG OXYGEN SATURATION 98.7 % (92.0-98.5); BG OXYHEMOGLOBIN 97.9 % (94.0-97.0); BG PCO2 43.8 mmHg (35.0-45.0); BG PH 7.366 (7.350-7.450); BG PO2 205.8 mmHg (75.0-100.0); BG SAMPLE SITE RIGHT RADIAL; BG TOTAL HEMOGLOBIN 8.6 g/dL (12.0-18.0); BG TOTAL RESPIRATORY RATE 16 b/min; BG VENT MODE MASK - BIPAP
[2020-10-15 22:51] LABS: PHOSPHORUS 2.8 mg/dL (2.5-4.9)
[2020-10-15] MEDS ORDERED: FUROSEMIDE 40 MG/4 ML IVP SCH (23:00)
[2020-10-15] MEDS ORDERED: IPRATROPIUM/ALBUTEROL 0.5-3(2.5)MG/3ML NEB HHN PRN (23:15)
[2020-10-15] MEDS: DILTIAZEM HCL 180MG CAPSULE CD 24HR PO SCH (23:25)
[2020-10-15] MEDS: PREDNISONE 20MG TABLET PO SCH (23:25)
[2020-10-15] MEDS: METFORMIN HCL 500MG TABLET PO SCH (23:26)
[2020-10-15] MEDS: ALPRAZOLAM 0.5 MG TABLET PO PRN (23:54)
[2020-10-16] VITALS (7 sets, daily range): BP systolic 99–137; BP diastolic 44–80
[2020-10-16] MEDS ORDERED: CLONIDINE 0.1MG TABLET PO PRN (01:00)
[2020-10-16] MEDS: HYDROCODONE/ACETAMINOPHEN 10/325MG TABLET PO PRN ×4 (06:32→22:39)
[2020-10-16] MEDS: FUROSEMIDE 40MG/4ML VIAL IV SCH ×2 (06:32→17:06)
[2020-10-16] MEDS ORDERED: IPRATROPIUM/ALBUTEROL 0.5-3(2.5)MG/3ML NEB HHN SCH ×2 (08:00)
[2020-10-16] MEDS ORDERED: ALBUTEROL 6.7GM HFA INHALER ORI SCH (08:00)
[2020-10-16] MEDS: ALBUTEROL 6.7GM HFA INHALER ORI SCH ×3 (08:00→21:25)
[2020-10-16] MEDS: APIXABAN 5 MG TABLET PO SCH ×2 (08:03→17:06)
[2020-10-16] MEDS: LINAGLIPTIN 5MG TABLET PO SCH (08:03)
[2020-10-16] MEDS: ASCORBIC ACID 500 MG TABLET PO SCH ×2 (08:04→20:22)
[2020-10-16] MEDS: METHIMAZOLE 5MG TABLET PO SCH (08:04)
[2020-10-16] MEDS: FAMOTIDINE 20MG TABLET PO SCH (08:04)
[2020-10-16] MEDS: METFORMIN HCL 500MG TABLET PO SCH (08:04)
[2020-10-16] MEDS: POTASSIUM CHLORIDE 20MEQ TABLET SR PO SCH (08:04)
[2020-10-16] MEDS: FERROUS SULFATE 325MG TABLET PO SCH ×3 (08:04→17:06)
[2020-10-16] MEDS: CITALOPRAM HYDROBROMIDE 10MG TABLET PO SCH (08:04)
[2020-10-16] MEDS: PREDNISONE 20MG TABLET PO SCH (08:05)
[2020-10-16] MEDS: DILTIAZEM HCL 180MG CAPSULE CD 24HR PO SCH (08:05)
[2020-10-16] MEDS: MULTIVITAMINS,THER W-MINERALS TABLET PO SCH (08:05)
[2020-10-16] MEDS: GLIMEPIRIDE 2MG TABLET PO SCH ×2 (08:05→17:06)
[2020-10-16] MEDS ORDERED: ERGOCALCIFEROL 50000UNITS CAPSULE PO SCH (09:00)
[2020-10-16 11:34] LABS: CHLORIDE 99 mEq/L (98-107)
[2020-10-17] VITALS (13 sets, daily range): BP systolic 90–132; BP diastolic 50–91
[2020-10-17] MEDS: IPRATROPIUM/ALBUTEROL 0.5-3(2.5)MG/3ML NEB HHN SCH ×5 (00:44→19:49)
[2020-10-17 05:24] LABS: PHOSPHORUS 3.2 mg/dL (2.5-4.9)
[2020-10-17 06:15] LABS: EOSINOPHILS % 0.2 % (0.0-5.0); HEMATOCRIT. 25.4 % (36.0-48.0); HEMOGLOBIN. 7.6 g/dL (12.0-16.0); LYMPHOCYTES % 9.1 % (20.0-50.0); MEAN CORPUSCULAR HEMOGLOBIN 21.3 pg (28.0-32.0); MEAN PLATELET VOLUME 8.5 fl (7.4-10.4); NEUTROPHILS % 79.7 % (40.0-76.0); PLATELET 189 x1000/uL (130-400); RED BLOOD CELL COUNT 3.58 mill/uL (4.2-5.4); RED CELL DISTRIBUTION WIDTH 19.2 % (11.6-14.6)
[2020-10-17] MEDS: HYDROCODONE/ACETAMINOPHEN 10/325MG TABLET PO PRN ×3 (06:28→18:52)
[2020-10-17] MEDS: FUROSEMIDE 40MG/4ML VIAL IV SCH ×2 (06:29→17:30)
[2020-10-17] MEDS: CITALOPRAM HYDROBROMIDE 10MG TABLET PO SCH (09:10)
[2020-10-17] MEDS: METFORMIN HCL 500MG TABLET PO SCH (09:10)
[2020-10-17] MEDS: FAMOTIDINE 20MG TABLET PO SCH (09:10)
[2020-10-17] MEDS: FERROUS SULFATE 325MG TABLET PO SCH ×3 (09:11→17:30)
[2020-10-17] MEDS: PREDNISONE 20MG TABLET PO SCH (09:11)
[2020-10-17] MEDS: APIXABAN 5 MG TABLET PO SCH ×2 (09:11→17:30)
[2020-10-17] MEDS: ASCORBIC ACID 500 MG TABLET PO SCH ×2 (09:12→21:35)
[2020-10-17] MEDS: POTASSIUM CHLORIDE 20MEQ TABLET SR PO SCH (09:12)
[2020-10-17] MEDS: METHIMAZOLE 5MG TABLET PO SCH (09:12)
[2020-10-17] MEDS: MULTIVITAMINS,THER W-MINERALS TABLET PO SCH (09:12)
[2020-10-17] MEDS: GLIMEPIRIDE 2MG TABLET PO SCH ×2 (09:12→17:30)
[2020-10-17] MEDS: DILTIAZEM HCL 180MG CAPSULE CD 24HR PO SCH (09:13)
[2020-10-17] MEDS: LINAGLIPTIN 5MG TABLET PO SCH (09:18)
[2020-10-17] MEDS ORDERED: POTASSIUM CHLORIDE 20MEQ TABLET SR PO NR ×3 (11:30→11:45)
[2020-10-17] MEDS: ALPRAZOLAM 0.5 MG TABLET PO PRN (21:35)
[2020-10-18] VITALS (12 sets, daily range): BP systolic 108–141; BP diastolic 69–96
[2020-10-18] MEDS: IPRATROPIUM/ALBUTEROL 0.5-3(2.5)MG/3ML NEB HHN SCH ×5 (03:56→21:11)
[2020-10-18] MEDS: HYDROCODONE/ACETAMINOPHEN 10/325MG TABLET PO PRN ×5 (04:33→23:15)
[2020-10-18 05:17] LABS: CHLORIDE 100 mEq/L (98-107)
[2020-10-18] MEDS: FUROSEMIDE 40MG/4ML VIAL IV SCH ×2 (06:04→18:50)
[2020-10-18] MEDS: ASCORBIC ACID 500 MG TABLET PO SCH ×2 (08:37→21:10)
[2020-10-18] MEDS: POTASSIUM CHLORIDE 20MEQ TABLET SR PO SCH (08:37)
[2020-10-18] MEDS: DILTIAZEM HCL 180MG CAPSULE CD 24HR PO SCH (08:37)
[2020-10-18] MEDS: LINAGLIPTIN 5MG TABLET PO SCH (08:38)
[2020-10-18] MEDS: PREDNISONE 20MG TABLET PO SCH (08:38)
[2020-10-18] MEDS: FERROUS SULFATE 325MG TABLET PO SCH ×3 (08:38→18:52)
[2020-10-18] MEDS: MULTIVITAMINS,THER W-MINERALS TABLET PO SCH (08:39)
[2020-10-18] MEDS: FAMOTIDINE 20MG TABLET PO SCH (08:39)
[2020-10-18] MEDS: CITALOPRAM HYDROBROMIDE 10MG TABLET PO SCH (08:39)
[2020-10-18] MEDS: GLIMEPIRIDE 2MG TABLET PO SCH ×2 (08:40→18:52)
[2020-10-18] MEDS: APIXABAN 5 MG TABLET PO SCH ×2 (08:40→18:50)
[2020-10-18] MEDS: METHIMAZOLE 5MG TABLET PO SCH (08:41)
[2020-10-18] MEDS: METFORMIN HCL 500MG TABLET PO SCH (08:41)
[2020-10-18] MEDS: LOSARTAN POTASSIUM 25 MG TABLET PO SCH (13:24)
[2020-10-19] VITALS (12 sets, daily range): BP systolic 107–151; BP diastolic 51–80
[2020-10-19] MEDS: IPRATROPIUM/ALBUTEROL 0.5-3(2.5)MG/3ML NEB HHN SCH ×6 (00:56→20:05)
[2020-10-19] MEDS: HYDROCODONE/ACETAMINOPHEN 10/325MG TABLET PO PRN ×4 (05:04→18:18)
[2020-10-19] MEDS: FUROSEMIDE 40MG/4ML VIAL IV SCH ×2 (05:04→18:17)
[2020-10-19] MEDS: FERROUS SULFATE 325MG TABLET PO SCH ×3 (08:53→18:00)
[2020-10-19] MEDS: MULTIVITAMINS,THER W-MINERALS TABLET PO SCH (08:53)
[2020-10-19] MEDS: METFORMIN HCL 500MG TABLET PO SCH (08:53)
[2020-10-19] MEDS: DILTIAZEM HCL 180MG CAPSULE CD 24HR PO SCH (08:53)
[2020-10-19] MEDS: GLIMEPIRIDE 2MG TABLET PO SCH ×2 (08:54→18:17)
[2020-10-19] MEDS: PREDNISONE 20MG TABLET PO SCH (08:55)
[2020-10-19] MEDS: ASCORBIC ACID 500 MG TABLET PO SCH ×2 (08:55→21:09)
[2020-10-19] MEDS: LOSARTAN POTASSIUM 25 MG TABLET PO SCH (08:55)
[2020-10-19] MEDS: LINAGLIPTIN 5MG TABLET PO SCH (08:56)
[2020-10-19] MEDS: APIXABAN 5 MG TABLET PO SCH ×2 (08:56→18:17)
[2020-10-19] MEDS: POTASSIUM CHLORIDE 20MEQ TABLET SR PO SCH (08:56)
[2020-10-19] MEDS: FAMOTIDINE 20MG TABLET PO SCH (08:57)
[2020-10-19] MEDS: METHIMAZOLE 5MG TABLET PO SCH (08:57)
[2020-10-19] MEDS: CITALOPRAM HYDROBROMIDE 10MG TABLET PO SCH (08:58)
[2020-10-19 11:19] LABS: CHLORIDE 94 mEq/L (98-107)
[2020-10-19] MEDS: ALPRAZOLAM 0.5 MG TABLET PO PRN (21:09)
[2020-10-20] VITALS (10 sets, daily range): BP systolic 116–137; BP diastolic 53–93
[2020-10-20] MEDS: IPRATROPIUM/ALBUTEROL 0.5-3(2.5)MG/3ML NEB HHN SCH ×6 (00:04→20:30)
[2020-10-20] MEDS: HYDROCODONE/ACETAMINOPHEN 10/325MG TABLET PO PRN ×5 (04:09→22:43)
[2020-10-20] MEDS: FUROSEMIDE 40MG/4ML VIAL IV SCH ×2 (05:45→17:16)
[2020-10-20 06:53] LABS: CHLORIDE 94 mEq/L (98-107)
[2020-10-20] MEDS: MULTIVITAMINS,THER W-MINERALS TABLET PO SCH (09:03)
[2020-10-20] MEDS: FAMOTIDINE 20MG TABLET PO SCH (09:03)
[2020-10-20] MEDS: APIXABAN 5 MG TABLET PO SCH ×2 (09:03→17:15)
[2020-10-20] MEDS: METFORMIN HCL 500MG TABLET PO SCH (09:03)
[2020-10-20] MEDS: FERROUS SULFATE 325MG TABLET PO SCH ×3 (09:03→17:16)
[2020-10-20] MEDS: LINAGLIPTIN 5MG TABLET PO SCH (09:03)
[2020-10-20] MEDS: ASCORBIC ACID 500 MG TABLET PO SCH ×2 (09:04→21:08)
[2020-10-20] MEDS: DILTIAZEM HCL 180MG CAPSULE CD 24HR PO SCH (09:04)
[2020-10-20] MEDS: GLIMEPIRIDE 2MG TABLET PO SCH ×2 (09:04→17:16)
[2020-10-20] MEDS: LOSARTAN POTASSIUM 25 MG TABLET PO SCH (09:04)
[2020-10-20] MEDS: METHIMAZOLE 5MG TABLET PO SCH (09:05)
[2020-10-20] MEDS: CITALOPRAM HYDROBROMIDE 10MG TABLET PO SCH (09:05)
[2020-10-20] MEDS: PREDNISONE 20MG TABLET PO SCH (09:05)
[2020-10-20] MEDS: POTASSIUM CHLORIDE 20MEQ TABLET SR PO SCH (09:10)
[2020-10-20] MEDS ORDERED: POTASSIUM CHLORIDE 20MEQ TABLET SR PO SCH (12:30)
[2020-10-20] MEDS ORDERED: DEXTROSE 50% WATER 50ML SYRINGE IV PRN (19:00)
[2020-10-20] MEDS: BLOOD SUGAR DIAGNOSTIC STRIP TEST SCH (21:00)
[2020-10-20] MEDS: INSULIN LISPRO 100 UNITS/ML SUBCUT SCH (21:08)
[2020-10-21] VITALS (7 sets, daily range): BP systolic 121–136; BP diastolic 53–108
[2020-10-21] MEDS: IPRATROPIUM/ALBUTEROL 0.5-3(2.5)MG/3ML NEB HHN SCH ×5 (00:36→16:09)
[2020-10-21] MEDS: HYDROCODONE/ACETAMINOPHEN 10/325MG TABLET PO PRN ×4 (04:43→18:22)
[2020-10-21 05:58] LABS: HEMATOCRIT. 29.8 % (36.0-48.0); HEMOGLOBIN. 9.1 g/dL (12.0-16.0); MEAN CORPUSCULAR HEMOGLOBIN 22.1 pg (28.0-32.0); MEAN CORPUSCULAR VOLUME 72.9 fL (81.0-99.0); MEAN PLATELET VOLUME 7.5 fl (7.4-10.4); PLATELET 226 x1000/uL (130-400); RED CELL DISTRIBUTION WIDTH 20.3 % (11.6-14.6)
[2020-10-21] MEDS: FUROSEMIDE 40MG/4ML VIAL IV SCH ×2 (06:26→17:38)
[2020-10-21 07:52] LABS: CHLORIDE 98 mEq/L (98-107)
[2020-10-21 07:58] LABS: PHOSPHORUS 4.1 mg/dL (2.5-4.9)
[2020-10-21] MEDS: BLOOD SUGAR DIAGNOSTIC STRIP TEST SCH ×3 (07:58→17:37)
[2020-10-21] MEDS ORDERED: ALPRAZOLAM 0.5 MG TABLET PO PRN (08:15)
[2020-10-21] MEDS: PREDNISONE 20MG TABLET PO SCH (08:19)
[2020-10-21] MEDS: DILTIAZEM HCL 180MG CAPSULE CD 24HR PO SCH (08:19)
[2020-10-21] MEDS: CITALOPRAM HYDROBROMIDE 10MG TABLET PO SCH (08:20)
[2020-10-21] MEDS: MULTIVITAMINS,THER W-MINERALS TABLET PO SCH (08:21)
[2020-10-21] MEDS: FAMOTIDINE 20MG TABLET PO SCH (08:21)
[2020-10-21] MEDS: LINAGLIPTIN 5MG TABLET PO SCH (08:22)
[2020-10-21] MEDS: ASCORBIC ACID 500 MG TABLET PO SCH (08:22)
[2020-10-21] MEDS: METFORMIN HCL 500MG TABLET PO SCH (08:22)
[2020-10-21] MEDS: FERROUS SULFATE 325MG TABLET PO SCH ×3 (08:22→17:39)
[2020-10-21] MEDS: POTASSIUM CHLORIDE 20MEQ TABLET SR PO SCH (08:22)
[2020-10-21] MEDS: APIXABAN 5 MG TABLET PO SCH ×2 (08:22→17:39)
[2020-10-21] MEDS: LOSARTAN POTASSIUM 25 MG TABLET PO SCH (08:22)
[2020-10-21] MEDS: METHIMAZOLE 5MG TABLET PO SCH (08:23)
[2020-10-21] MEDS: GLIMEPIRIDE 2MG TABLET PO SCH ×2 (08:23→17:39)
[2020-10-21] MEDS: INSULIN LISPRO 100 UNITS/ML SUBCUT SCH ×3 (08:24→17:41)
[2020-10-21] MEDS ORDERED: POTASSIUM CHLORIDE 20MEQ TABLET SR PO NR ×2 (12:00→12:15)
[2020-10-21 13:26] LABS: PLATELET ESTIMATE NORMAL
== END 2020-10-21 20:04 | disposition home or self-care (01) | DRG 291 ==
LOC: ER 18:58 → 7WST 21:27 → EDBEDREQ 21:33 → EDBEDREQTM 21:33 → ENRESERV 10-16 03:12 → 5EST 10-16 23:57
PROVIDERS: ADMIT Internal Medicine Pulmonary Disease; ATTEND Internal Medicine Pulmonary Disease
PROC: 5A09457 Assistance with Respiratory Ventilation, 24-96 Consecutive Hours, Continuous Positive Airway Pressure (ICD-10-PCS; principal; 2020-10-15)
PROC: 5A09357 Assistance with Respiratory Ventilation, Less than 24 Consecutive Hours, Continuous Positive Airway Pressure (ICD-10-PCS; 2020-10-18)
PROC: 5A09357 Assistance with Respiratory Ventilation, Less than 24 Consecutive Hours, Continuous Positive Airway Pressure (ICD-10-PCS; 2020-10-19)
PROC: 5A09357 Assistance with Respiratory Ventilation, Less than 24 Consecutive Hours, Continuous Positive Airway Pressure (ICD-10-PCS; 2020-10-20)
PROC: 5A09357 Assistance with Respiratory Ventilation, Less than 24 Consecutive Hours, Continuous Positive Airway Pressure (ICD-10-PCS; 2020-10-21)
DX: I11.0 Hypertensive heart disease with heart failure (principal); J96.21 Acute and chronic respiratory failure with hypoxia; J96.22 Acute and chronic respiratory failure with hypercapnia; J44.1 Chronic obstructive pulmonary disease with (acute) exacerbation; I48.92 Unspecified atrial flutter; I48.20 Chronic atrial fibrillation, unspecified; I50.33 Acute on chronic diastolic (congestive) heart failure; I27.81 Cor pulmonale (chronic); I27.29 Other secondary pulmonary hypertension; K21.9 Gastro-esophageal reflux disease without esophagitis; E11.9 Type 2 diabetes mellitus without complications; E78.5 Hyperlipidemia, unspecified; E66.01 Morbid (severe) obesity due to excess calories; D64.9 Anemia, unspecified; F41.9 Anxiety disorder, unspecified; I25.10 Atherosclerotic heart disease of native coronary artery without angina pectoris; G47.30 Sleep apnea, unspecified; E05.90 Thyrotoxicosis, unspecified without thyrotoxic crisis or storm; D12.6 Benign neoplasm of colon, unspecified; G89.29 Other chronic pain; M54.5 Low back pain; D35.01 Benign neoplasm of right adrenal gland; I42.1 Obstructive hypertrophic cardiomyopathy; Z95.0 Presence of cardiac pacemaker; Z90.710 Acquired absence of both cervix and uterus; Z98.42 Cataract extraction status, left eye; Z98.41 Cataract extraction status, right eye; Z87.891 Personal history of nicotine dependence; Z82.49 Family history of ischemic heart disease and other diseases of the circulatory system; Z83.3 Family history of diabetes mellitus; Z80.1 Family history of malignant neoplasm of trachea, bronchus and lung; Z79.52 Long term (current) use of systemic steroids; Z20.822 Contact with and (suspected) exposure to COVID-19
CPT/HCPCS: 36415; 36600; 71045; 80048; 80053; 82375; 82805; 82962; 83605; 83735; 83880; 84100; 84484; 85025; 93005; 93306; 94640; 94660; 99291; J1815; J1940; J1956; J2270; J2405; J3490; J7512; U0003

== ENCOUNTER 2020-10-29 19:01 | Inpatient (IN) | payer MEDICARE, MEDICAID ==
[~2020-10-29] VITALS: Ht 170.2 cm; Wt 125.2 kg
[~2020-10-29 19:01] MED LIST changes: -AZOPT BOTHEYE
[2020-10-29] MEDS ORDERED: IPRATROPIUM BROMIDE (0.02%) 0.5MG/2.5ML NEB HHN STA (19:16)
[2020-10-29] MEDS ORDERED: ALBUTEROL (0.083%) 2.5MG/3ML NEB HHN STA (19:16)
[2020-10-29] MEDS ORDERED: LEVOFLOXACIN 750MG PREMIX 150 ML IV STA (19:16)
[2020-10-29] MEDS ORDERED: METHYLPREDNISOLONE SOD SUCC 125 MG/2 ML VIAL IV STA (19:16)
[2020-10-29] MEDS ORDERED: MAGNESIUM 2 G PREMIX 50 ML IV STA (19:16)
[2020-10-29 19:31] LABS: CHLORIDE 102 mEq/L (98-107)
[2020-10-29 19:32] LABS: HEMATOCRIT. 28.5 % (36.0-48.0); HEMOGLOBIN. 8.8 g/dL (12.0-16.0); MEAN CORPUSCULAR HEMOGLOBIN 22.9 pg (28.0-32.0); MEAN CORPUSCULAR VOLUME 74.6 fL (81.0-99.0); MEAN PLATELET VOLUME 7.5 fl (7.4-10.4); PLATELET 587 x1000/uL (130-400); RED BLOOD CELL COUNT 3.82 mill/uL (4.2-5.4); RED CELL DISTRIBUTION WIDTH 22.6 % (11.6-14.6)
[2020-10-29 20:18] LABS: PLATELET ESTIMATE MARKEDLY INCREASED
[2020-10-29] MEDS ORDERED: MORPHINE SULFATE 4 MG/ML CPJ (NOT FOR IM USE) IV ONE (20:30)
[2020-10-29] MEDS ORDERED: IOHEXOL-350 100 ML BOTTLE ONE (23:31)
[2020-10-30] VITALS (7 sets, daily range): BP systolic 103–150; BP diastolic 49–89
[2020-10-30] MEDS ORDERED: DEXTROSE 50% WATER 50ML SYRINGE IV PRN (02:15)
[2020-10-30] MEDS ORDERED: ALBUTEROL 6.7GM HFA INHALER ORI PRN (03:00)
[2020-10-30] MEDS: HYDROCODONE/ACETAMINOPHEN 10/325MG TABLET PO PRN ×5 (03:01→22:23)
[2020-10-30] MEDS: BLOOD SUGAR DIAGNOSTIC STRIP TEST SCH ×4 (07:50→20:54)
[2020-10-30] MEDS: IPRATROPIUM/ALBUTEROL 0.5-3(2.5)MG/3ML NEB HHN SCH ×2 (08:00→12:00)
[2020-10-30] MEDS: METFORMIN HCL 500MG TABLET PO SCH (08:38)
[2020-10-30] MEDS: APIXABAN 5 MG TABLET PO SCH ×2 (08:40→16:35)
[2020-10-30] MEDS: FERROUS SULFATE 325MG TABLET PO SCH ×3 (08:40→17:16)
[2020-10-30] MEDS: LINAGLIPTIN 5MG TABLET PO SCH (08:41)
[2020-10-30] MEDS: INSULIN LISPRO 100 UNITS/ML SUBCUT SCH ×4 (08:42→20:54)
[2020-10-30] MEDS: GLIMEPIRIDE 2MG TABLET PO SCH ×2 (08:43→16:35)
[2020-10-30] MEDS: FAMOTIDINE 20MG TABLET PO SCH ×2 (08:44→16:35)
[2020-10-30] MEDS: MULTIVITAMINS,THER W-MINERALS TABLET PO SCH (08:44)
[2020-10-30] MEDS: DILTIAZEM HCL 180MG CAPSULE CD 24HR PO SCH (08:44)
[2020-10-30] MEDS: POTASSIUM CHLORIDE 20MEQ TABLET SR PO SCH (08:44)
[2020-10-30] MEDS: FUROSEMIDE 100MG/10ML VIAL IVP SCH ×2 (08:44→20:47)
[2020-10-30 08:53] LABS: CHLORIDE 102 mEq/L (98-107)
[2020-10-30] MEDS ORDERED: PREDNISONE 20MG TABLET PO SCH (09:00)
[2020-10-30 09:09] LABS: T4 FREE 0.86 ng/dL (0.76-1.46)
[2020-10-30] MEDS: METHIMAZOLE 5MG TABLET PO SCH (10:20)
[2020-10-30] MEDS: ALBUTEROL 6.7GM HFA INHALER ORI SCH ×3 (12:00→20:48)
[2020-10-30] MEDS: CITALOPRAM HYDROBROMIDE 10MG TABLET PO SCH (20:47)
[2020-10-30] MEDS: ALPRAZOLAM 0.5 MG TABLET PO SCH (20:47)
[2020-10-31] VITALS: BP 138/71
[2020-10-31] MEDS: ALBUTEROL 6.7GM HFA INHALER ORI SCH ×3 (00:05→08:26)
[2020-10-31 04:00] VITALS: BP 139/70
[2020-10-31] MEDS: HYDROCODONE/ACETAMINOPHEN 10/325MG TABLET PO PRN ×4 (06:28→20:34)
[2020-10-31 06:30] LABS: BASOPHILS % 0.1 % (0.0-2.0); HEMATOCRIT. 24.4 % (36.0-48.0); HEMOGLOBIN. 7.6 g/dL (12.0-16.0); MEAN CORPUSCULAR HEMOGLOBIN 22.6 pg (28.0-32.0); MEAN CORPUSCULAR VOLUME 73.2 fL (81.0-99.0); MEAN PLATELET VOLUME 7.4 fl (7.4-10.4); MONOCYTES % 10.1 % (2.0-8.0); NEUTROPHILS % 81.8 % (40.0-76.0); PLATELET 537 x1000/uL (130-400); RED BLOOD CELL COUNT 3.34 mill/uL (4.2-5.4)
[2020-10-31 06:49] LABS: PHOSPHORUS 4.3 mg/dL (2.5-4.9)
[2020-10-31] MEDS: INSULIN LISPRO 100 UNITS/ML SUBCUT SCH ×4 (07:53→20:48)
[2020-10-31] MEDS: FERROUS SULFATE 325MG TABLET PO SCH ×3 (07:53→17:24)
[2020-10-31 08:00] VITALS: BP 101/54
[2020-10-31] MEDS: BLOOD SUGAR DIAGNOSTIC STRIP TEST SCH ×4 (08:00→20:47)
[2020-10-31] MEDS: FUROSEMIDE 100MG/10ML VIAL IVP SCH ×2 (08:16→20:47)
[2020-10-31] MEDS: POTASSIUM CHLORIDE 20MEQ TABLET SR PO SCH (08:18)
[2020-10-31] MEDS: FAMOTIDINE 20MG TABLET PO SCH ×2 (08:19→16:08)
[2020-10-31] MEDS: MULTIVITAMINS,THER W-MINERALS TABLET PO SCH (08:19)
[2020-10-31] MEDS: APIXABAN 5 MG TABLET PO SCH ×2 (08:19→16:08)
[2020-10-31] MEDS: GLIMEPIRIDE 2MG TABLET PO SCH ×2 (08:19→16:08)
[2020-10-31] MEDS: METHIMAZOLE 5MG TABLET PO SCH (08:19)
[2020-10-31] MEDS: LINAGLIPTIN 5MG TABLET PO SCH (08:19)
[2020-10-31] MEDS: METFORMIN HCL 500MG TABLET PO SCH (08:19)
[2020-10-31] MEDS: DILTIAZEM HCL 180MG CAPSULE CD 24HR PO SCH (08:29)
[2020-10-31 11:41] VITALS: BP 138/55
[2020-10-31] MEDS: UMECLIDINIUM BROMIDE 1 INH BLST.W.DEV IH SCH ×2 (12:00→13:06)
[2020-10-31] MEDS: FLUTICASONE/VILANTEROL 200-25 BLST.W.DEV ORI SCH (13:07)
[2020-10-31 16:00] VITALS: BP 120/64
[2020-10-31 20:00] VITALS: BP 113/56
[2020-10-31] MEDS: ALPRAZOLAM 0.5 MG TABLET PO SCH (20:33)
[2020-10-31] MEDS: CITALOPRAM HYDROBROMIDE 10MG TABLET PO SCH (20:34)
[2020-11-01] VITALS (9 sets, daily range): BP systolic 97–127; BP diastolic 45–77
[2020-11-01] MEDS: HYDROCODONE/ACETAMINOPHEN 10/325MG TABLET PO PRN ×5 (04:30→23:59)
[2020-11-01] MEDS: IPRATROPIUM/ALBUTEROL 0.5-3(2.5)MG/3ML NEB HHN SCH (05:03)
[2020-11-01] MEDS: BLOOD SUGAR DIAGNOSTIC STRIP TEST SCH ×4 (06:39→21:24)
[2020-11-01 06:45] LABS: BASOPHILS % 0.2 % (0.0-2.0); EOSINOPHILS % 1.6 % (0.0-5.0); HEMATOCRIT. 25.1 % (36.0-48.0); HEMOGLOBIN. 7.7 g/dL (12.0-16.0); LYMPHOCYTES % 14.4 % (20.0-50.0); MEAN CORPUSCULAR HEMOGLOBIN 22.4 pg (28.0-32.0); MEAN CORPUSCULAR VOLUME 72.8 fL (81.0-99.0); MONOCYTES % 9.6 % (2.0-8.0); NEUTROPHILS % 74.2 % (40.0-76.0); PLATELET 524 x1000/uL (130-400); RED BLOOD CELL COUNT 3.45 mill/uL (4.2-5.4); RED CELL DISTRIBUTION WIDTH 22.9 % (11.6-14.6)
[2020-11-01] MEDS: LINAGLIPTIN 5MG TABLET PO SCH (09:29)
[2020-11-01] MEDS: FUROSEMIDE 100MG/10ML VIAL IVP SCH ×2 (09:29→21:23)
[2020-11-01] MEDS: FERROUS SULFATE 325MG TABLET PO SCH ×3 (09:29→18:22)
[2020-11-01] MEDS: METFORMIN HCL 500MG TABLET PO SCH (09:29)
[2020-11-01] MEDS: POTASSIUM CHLORIDE 20MEQ TABLET SR PO SCH (09:29)
[2020-11-01] MEDS: MULTIVITAMINS,THER W-MINERALS TABLET PO SCH (09:29)
[2020-11-01] MEDS: GLIMEPIRIDE 2MG TABLET PO SCH ×2 (09:30→18:24)
[2020-11-01] MEDS: DILTIAZEM HCL 180MG CAPSULE CD 24HR PO SCH (09:30)
[2020-11-01] MEDS: APIXABAN 5 MG TABLET PO SCH ×2 (09:30→18:22)
[2020-11-01] MEDS: METHIMAZOLE 5MG TABLET PO SCH (09:31)
[2020-11-01] MEDS: FAMOTIDINE 20MG TABLET PO SCH ×2 (09:37→18:24)
[2020-11-01] MEDS: FLUTICASONE/VILANTEROL 200-25 BLST.W.DEV ORI SCH (09:37)
[2020-11-01] MEDS: UMECLIDINIUM BROMIDE 1 INH BLST.W.DEV IH SCH (09:37)
[2020-11-01] MEDS: INSULIN LISPRO 100 UNITS/ML SUBCUT SCH ×4 (09:39→21:24)
[2020-11-01] MEDS ORDERED: POTASSIUM CHLORIDE 20MEQ TABLET SR PO NR (15:00)
[2020-11-01] MEDS: CITALOPRAM HYDROBROMIDE 10MG TABLET PO SCH (21:23)
[2020-11-01] MEDS: ALPRAZOLAM 0.5 MG TABLET PO SCH (21:23)
[2020-11-02 04:00] VITALS: BP 113/62
[2020-11-02] MEDS: HYDROCODONE/ACETAMINOPHEN 10/325MG TABLET PO PRN ×5 (05:41→23:13)
[2020-11-02] MEDS: BLOOD SUGAR DIAGNOSTIC STRIP TEST SCH ×4 (06:43→20:51)
[2020-11-02 08:00] VITALS: BP 117/53
[2020-11-02] MEDS: FUROSEMIDE 100MG/10ML VIAL IVP SCH ×2 (08:33→20:49)
[2020-11-02] MEDS: FERROUS SULFATE 325MG TABLET PO SCH ×3 (08:33→18:10)
[2020-11-02] MEDS: METHIMAZOLE 5MG TABLET PO SCH (08:33)
[2020-11-02] MEDS: MULTIVITAMINS,THER W-MINERALS TABLET PO SCH (08:33)
[2020-11-02] MEDS: APIXABAN 5 MG TABLET PO SCH ×2 (08:33→18:10)
[2020-11-02] MEDS: METFORMIN HCL 500MG TABLET PO SCH (08:33)
[2020-11-02] MEDS: DILTIAZEM HCL 180MG CAPSULE CD 24HR PO SCH (08:34)
[2020-11-02] MEDS: POTASSIUM CHLORIDE 20MEQ TABLET SR PO SCH (08:34)
[2020-11-02] MEDS: LINAGLIPTIN 5MG TABLET PO SCH (08:34)
[2020-11-02] MEDS: GLIMEPIRIDE 2MG TABLET PO SCH ×2 (08:35→18:10)
[2020-11-02] MEDS: FAMOTIDINE 20MG TABLET PO SCH ×2 (08:35→18:09)
[2020-11-02] MEDS: INSULIN LISPRO 100 UNITS/ML SUBCUT SCH ×4 (08:37→20:49)
[2020-11-02] MEDS: AMBRISENTAN 10MG TABLET PO SCH (08:38)
[2020-11-02 12:00] VITALS: BP 123/59
[2020-11-02] MEDS: ALBUTEROL (0.083%) 2.5MG/3ML NEB HHN PRN (12:48)
[2020-11-02] MEDS: UMECLIDINIUM BROMIDE 1 INH BLST.W.DEV IH SCH (13:29)
[2020-11-02] MEDS: FLUTICASONE/VILANTEROL 200-25 BLST.W.DEV ORI SCH (13:33)
[2020-11-02 16:00] VITALS: BP 124/68
[2020-11-02 20:00] VITALS: BP 126/63
[2020-11-02] MEDS: ALPRAZOLAM 0.5 MG TABLET PO SCH (20:49)
[2020-11-02] MEDS: CITALOPRAM HYDROBROMIDE 10MG TABLET PO SCH (20:51)
[2020-11-03] VITALS (8 sets, daily range): BP systolic 104–138; BP diastolic 45–91
[2020-11-03] MEDS: HYDROCODONE/ACETAMINOPHEN 10/325MG TABLET PO PRN ×4 (05:35→21:58)
[2020-11-03 07:13] LABS: HEMATOCRIT. 28.9 % (36.0-48.0); HEMOGLOBIN. 8.8 g/dL (12.0-16.0); MEAN CORPUSCULAR HEMOGLOBIN 22.5 pg (28.0-32.0); MEAN CORPUSCULAR VOLUME 73.9 fL (81.0-99.0); MEAN PLATELET VOLUME 7.3 fl (7.4-10.4); PLATELET 511 x1000/uL (130-400); RED BLOOD CELL COUNT 3.91 mill/uL (4.2-5.4)
[2020-11-03] MEDS: BLOOD SUGAR DIAGNOSTIC STRIP TEST SCH ×4 (07:15→21:47)
[2020-11-03] MEDS: GLIMEPIRIDE 2MG TABLET PO SCH ×2 (08:42→17:28)
[2020-11-03] MEDS: FERROUS SULFATE 325MG TABLET PO SCH ×3 (08:42→17:28)
[2020-11-03] MEDS: APIXABAN 5 MG TABLET PO SCH ×2 (08:43→17:28)
[2020-11-03] MEDS: DILTIAZEM HCL 180MG CAPSULE CD 24HR PO SCH (08:43)
[2020-11-03] MEDS: POTASSIUM CHLORIDE 20MEQ TABLET SR PO SCH (08:43)
[2020-11-03] MEDS: METFORMIN HCL 500MG TABLET PO SCH (08:43)
[2020-11-03] MEDS: MULTIVITAMINS,THER W-MINERALS TABLET PO SCH (08:43)
[2020-11-03] MEDS: METHIMAZOLE 5MG TABLET PO SCH (08:43)
[2020-11-03] MEDS: LINAGLIPTIN 5MG TABLET PO SCH (08:44)
[2020-11-03] MEDS: AMBRISENTAN 10MG TABLET PO SCH (08:44)
[2020-11-03] MEDS: FAMOTIDINE 20MG TABLET PO SCH ×2 (08:44→17:28)
[2020-11-03] MEDS: FUROSEMIDE 100MG/10ML VIAL IVP SCH ×2 (08:44→21:47)
[2020-11-03] MEDS: UMECLIDINIUM BROMIDE 1 INH BLST.W.DEV IH SCH (08:45)
[2020-11-03] MEDS: FLUTICASONE/VILANTEROL 200-25 BLST.W.DEV ORI SCH (08:50)
[2020-11-03] MEDS: INSULIN LISPRO 100 UNITS/ML SUBCUT SCH ×4 (08:51→21:56)
[2020-11-03 09:13] LABS: CHLORIDE 98 mEq/L (98-107)
[2020-11-03] MEDS: PREDNISONE 20MG TABLET PO SCH (10:45)
[2020-11-03 13:24] LABS: PLATELET ESTIMATE INCREASED
[2020-11-03] MEDS: ALPRAZOLAM 0.5 MG TABLET PO SCH (21:47)
[2020-11-03] MEDS: CITALOPRAM HYDROBROMIDE 10MG TABLET PO SCH (21:47)
[2020-11-04 00:32] VITALS: BP 140/72
[2020-11-04 04:00] VITALS: BP 147/57
[2020-11-04 06:29] LABS: BASOPHILS % 0.2 % (0.0-2.0); EOSINOPHILS % 1.2 % (0.0-5.0); HEMOGLOBIN. 7.9 g/dL (12.0-16.0); LYMPHOCYTES % 9.2 % (20.0-50.0); MEAN CORPUSCULAR HEMOGLOBIN 22.6 pg (28.0-32.0); MEAN CORPUSCULAR VOLUME 73.9 fL (81.0-99.0); MEAN PLATELET VOLUME 7.3 fl (7.4-10.4); MONOCYTES % 8.7 % (2.0-8.0); NEUTROPHILS % 80.7 % (40.0-76.0); PLATELET 418 x1000/uL (130-400); RED BLOOD CELL COUNT 3.51 mill/uL (4.2-5.4); RED CELL DISTRIBUTION WIDTH 22.3 % (11.6-14.6)
[2020-11-04] MEDS: BLOOD SUGAR DIAGNOSTIC STRIP TEST SCH ×4 (06:58→21:20)
[2020-11-04] MEDS: HYDROCODONE/ACETAMINOPHEN 10/325MG TABLET PO PRN ×4 (07:05→21:20)
[2020-11-04 07:23] LABS: CHLORIDE 96 mEq/L (98-107)
[2020-11-04] MEDS: INSULIN LISPRO 100 UNITS/ML SUBCUT SCH ×4 (07:50→21:23)
[2020-11-04 07:52] VITALS: BP 115/60
[2020-11-04] MEDS: UMECLIDINIUM BROMIDE 1 INH BLST.W.DEV IH SCH (08:34)
[2020-11-04] MEDS: AMBRISENTAN 10MG TABLET PO SCH (08:35)
[2020-11-04] MEDS: FLUTICASONE/VILANTEROL 200-25 BLST.W.DEV ORI SCH (08:35)
[2020-11-04] MEDS: FAMOTIDINE 20MG TABLET PO SCH ×2 (08:37→16:49)
[2020-11-04] MEDS: LINAGLIPTIN 5MG TABLET PO SCH (08:37)
[2020-11-04] MEDS: FERROUS SULFATE 325MG TABLET PO SCH ×3 (08:37→16:49)
[2020-11-04] MEDS: DILTIAZEM HCL 180MG CAPSULE CD 24HR PO SCH (08:37)
[2020-11-04] MEDS: GLIMEPIRIDE 2MG TABLET PO SCH ×2 (08:38→16:49)
[2020-11-04] MEDS: APIXABAN 5 MG TABLET PO SCH ×2 (08:38→16:49)
[2020-11-04] MEDS: METFORMIN HCL 500MG TABLET PO SCH (08:38)
[2020-11-04] MEDS: PREDNISONE 20MG TABLET PO SCH (08:38)
[2020-11-04] MEDS: METHIMAZOLE 5MG TABLET PO SCH (08:38)
[2020-11-04] MEDS: MULTIVITAMINS,THER W-MINERALS TABLET PO SCH (08:38)
[2020-11-04] MEDS: FUROSEMIDE 100MG/10ML VIAL IVP SCH ×2 (08:38→21:20)
[2020-11-04] MEDS: POTASSIUM CHLORIDE 20MEQ TABLET SR PO SCH (08:38)
[2020-11-04] MEDS: ALBUTEROL (0.083%) 2.5MG/3ML NEB HHN PRN (09:20)
[2020-11-04 11:46] VITALS: BP 123/67
[2020-11-04 16:38] VITALS: BP 126/69
[2020-11-04 20:00] VITALS: BP 113/69
[2020-11-04] MEDS: ALPRAZOLAM 0.5 MG TABLET PO SCH (21:19)
[2020-11-04] MEDS: CITALOPRAM HYDROBROMIDE 10MG TABLET PO SCH (21:20)
[2020-11-04] MEDS: INSULIN GLARGINE UD 100 UNITS/ML SYR SUBCUT SCH (21:24)
[2020-11-05 00:27] VITALS: BP 102/62
[2020-11-05 04:00] VITALS: BP 112/60
[2020-11-05] MEDS: HYDROCODONE/ACETAMINOPHEN 10/325MG TABLET PO PRN ×5 (05:07→22:47)
[2020-11-05] MEDS: BLOOD SUGAR DIAGNOSTIC STRIP TEST SCH ×4 (06:16→21:54)
[2020-11-05 06:46] LABS: BASOPHILS % 0.1 % (0.0-2.0); EOSINOPHILS % 0.5 % (0.0-5.0); HEMATOCRIT. 28.2 % (36.0-48.0); HEMOGLOBIN. 8.5 g/dL (12.0-16.0); LYMPHOCYTES % 12.3 % (20.0-50.0); MEAN CORPUSCULAR HEMOGLOBIN 22.4 pg (28.0-32.0); MEAN CORPUSCULAR VOLUME 74.6 fL (81.0-99.0); MEAN PLATELET VOLUME 7.1 fl (7.4-10.4); MONOCYTES % 8.3 % (2.0-8.0); NEUTROPHILS % 78.8 % (40.0-76.0); PLATELET 431 x1000/uL (130-400); RED BLOOD CELL COUNT 3.78 mill/uL (4.2-5.4); RED CELL DISTRIBUTION WIDTH 23.4 % (11.6-14.6)
[2020-11-05 08:12] VITALS: BP 135/66
[2020-11-05] MEDS: GLIMEPIRIDE 2MG TABLET PO SCH ×2 (09:26→17:01)
[2020-11-05] MEDS: FAMOTIDINE 20MG TABLET PO SCH ×2 (09:26→17:01)
[2020-11-05] MEDS: METFORMIN HCL 500MG TABLET PO SCH (09:26)
[2020-11-05] MEDS: FERROUS SULFATE 325MG TABLET PO SCH ×3 (09:26→17:02)
[2020-11-05] MEDS: MULTIVITAMINS,THER W-MINERALS TABLET PO SCH (09:27)
[2020-11-05] MEDS: DILTIAZEM HCL 180MG CAPSULE CD 24HR PO SCH (09:27)
[2020-11-05] MEDS: POTASSIUM CHLORIDE 20MEQ TABLET SR PO SCH (09:27)
[2020-11-05] MEDS: FLUTICASONE/VILANTEROL 200-25 BLST.W.DEV ORI SCH (09:30)
[2020-11-05] MEDS: AMBRISENTAN 10MG TABLET PO SCH (09:31)
[2020-11-05] MEDS: UMECLIDINIUM BROMIDE 1 INH BLST.W.DEV IH SCH (09:33)
[2020-11-05] MEDS: FUROSEMIDE 100MG/10ML VIAL IVP SCH ×2 (09:34→21:54)
[2020-11-05] MEDS: INSULIN LISPRO 100 UNITS/ML SUBCUT SCH ×4 (09:35→21:55)
[2020-11-05] MEDS: APIXABAN 5 MG TABLET PO SCH ×2 (09:39→17:01)
[2020-11-05] MEDS: LINAGLIPTIN 5MG TABLET PO SCH (09:40)
[2020-11-05] MEDS: PREDNISONE 20MG TABLET PO SCH (09:40)
[2020-11-05] MEDS: METHIMAZOLE 5MG TABLET PO SCH (09:48)
[2020-11-05 11:57] VITALS: BP 121/63
[2020-11-05 16:02] VITALS: BP 120/66
[2020-11-05 20:17] VITALS: BP 129/64
[2020-11-05] MEDS: CITALOPRAM HYDROBROMIDE 10MG TABLET PO SCH (21:53)
[2020-11-05] MEDS: INSULIN GLARGINE UD 100 UNITS/ML SYR SUBCUT SCH (21:56)
[2020-11-06] VITALS (9 sets, daily range): BP systolic 125–138; BP diastolic 61–76
[2020-11-06] MEDS: HYDROCODONE/ACETAMINOPHEN 10/325MG TABLET PO PRN ×4 (05:01→18:36)
[2020-11-06] MEDS: BLOOD SUGAR DIAGNOSTIC STRIP TEST SCH ×4 (06:38→20:44)
[2020-11-06] MEDS: INSULIN LISPRO 100 UNITS/ML SUBCUT SCH ×4 (07:37→21:15)
[2020-11-06 07:50] LABS: HEMATOCRIT. 28.1 % (36.0-48.0); HEMOGLOBIN. 8.5 g/dL (12.0-16.0); MEAN CORPUSCULAR HEMOGLOBIN 22.7 pg (28.0-32.0); MEAN CORPUSCULAR VOLUME 74.9 fL (81.0-99.0); PLATELET 378 x1000/uL (130-400); RED BLOOD CELL COUNT 3.75 mill/uL (4.2-5.4); RED CELL DISTRIBUTION WIDTH 23.8 % (11.6-14.6)
[2020-11-06] MEDS: FERROUS SULFATE 325MG TABLET PO SCH ×3 (09:40→17:34)
[2020-11-06] MEDS: FUROSEMIDE 100MG/10ML VIAL IVP SCH ×2 (09:41→21:15)
[2020-11-06] MEDS: AMBRISENTAN 10MG TABLET PO SCH (09:43)
[2020-11-06] MEDS: FLUTICASONE/VILANTEROL 200-25 BLST.W.DEV ORI SCH (09:43)
[2020-11-06] MEDS: MULTIVITAMINS,THER W-MINERALS TABLET PO SCH (09:44)
[2020-11-06] MEDS: PREDNISONE 20MG TABLET PO SCH (09:44)
[2020-11-06] MEDS: APIXABAN 5 MG TABLET PO SCH ×2 (09:45→17:34)
[2020-11-06] MEDS: LINAGLIPTIN 5MG TABLET PO SCH (09:45)
[2020-11-06] MEDS: DILTIAZEM HCL 180MG CAPSULE CD 24HR PO SCH (09:45)
[2020-11-06] MEDS: METHIMAZOLE 5MG TABLET PO SCH (09:46)
[2020-11-06] MEDS: POTASSIUM CHLORIDE 20MEQ TABLET SR PO SCH (09:46)
[2020-11-06] MEDS: METFORMIN HCL 500MG TABLET PO SCH (09:48)
[2020-11-06] MEDS: FAMOTIDINE 20MG TABLET PO SCH ×2 (09:49→17:34)
[2020-11-06] MEDS: GLIMEPIRIDE 2MG TABLET PO SCH ×2 (09:49→18:02)
[2020-11-06] MEDS ORDERED: POTASSIUM CHLORIDE 20MEQ TABLET SR PO NR (10:45)
[2020-11-06] MEDS ORDERED: METOLAZONE 10MG TABLET PO SCH (10:45)
[2020-11-06] MEDS: UMECLIDINIUM BROMIDE 1 INH BLST.W.DEV IH SCH (10:55)
[2020-11-06 14:21] LABS: PLATELET ESTIMATE NORMAL
[2020-11-06] MEDS: INSULIN GLARGINE UD 100 UNITS/ML SYR SUBCUT SCH (21:16)
[2020-11-06] MEDS: CITALOPRAM HYDROBROMIDE 10MG TABLET PO SCH (21:17)
[2020-11-07] VITALS: BP 130/60
[2020-11-07 04:00] VITALS: BP 140/84
[2020-11-07] MEDS: HYDROCODONE/ACETAMINOPHEN 10/325MG TABLET PO PRN ×4 (05:00→20:52)
[2020-11-07] MEDS: BLOOD SUGAR DIAGNOSTIC STRIP TEST SCH ×4 (06:49→21:00)
[2020-11-07 07:32] LABS: HEMATOCRIT. 28.8 % (36.0-48.0); MEAN CORPUSCULAR HEMOGLOBIN 23.6 pg (28.0-32.0); MEAN CORPUSCULAR VOLUME 75.5 fL (81.0-99.0); MEAN PLATELET VOLUME 7.4 fl (7.4-10.4); PLATELET 328 x1000/uL (130-400); RED BLOOD CELL COUNT 3.82 mill/uL (4.2-5.4); RED CELL DISTRIBUTION WIDTH 24.2 % (11.6-14.6)
[2020-11-07 08:00] VITALS: BP 116/65
[2020-11-07] MEDS: INSULIN LISPRO 100 UNITS/ML SUBCUT SCH ×4 (08:19→22:53)
[2020-11-07] MEDS: POTASSIUM CHLORIDE 20MEQ TABLET SR PO SCH (08:23)
[2020-11-07] MEDS: FUROSEMIDE 100MG/10ML VIAL IVP SCH ×2 (08:23→22:45)
[2020-11-07] MEDS: LINAGLIPTIN 5MG TABLET PO SCH (08:23)
[2020-11-07] MEDS: FAMOTIDINE 20MG TABLET PO SCH ×2 (08:23→17:30)
[2020-11-07] MEDS: GLIMEPIRIDE 2MG TABLET PO SCH ×2 (08:23→17:31)
[2020-11-07] MEDS: APIXABAN 5 MG TABLET PO SCH ×2 (08:24→17:31)
[2020-11-07] MEDS: DILTIAZEM HCL 180MG CAPSULE CD 24HR PO SCH (08:24)
[2020-11-07] MEDS: METHIMAZOLE 5MG TABLET PO SCH (08:24)
[2020-11-07] MEDS: MULTIVITAMINS,THER W-MINERALS TABLET PO SCH (08:25)
[2020-11-07] MEDS: FERROUS SULFATE 325MG TABLET PO SCH ×3 (08:25→17:30)
[2020-11-07] MEDS: METFORMIN HCL 500MG TABLET PO SCH (08:25)
[2020-11-07] MEDS: PREDNISONE 20MG TABLET PO SCH (08:25)
[2020-11-07] MEDS: UMECLIDINIUM BROMIDE 1 INH BLST.W.DEV IH SCH (08:25)
[2020-11-07] MEDS: AMBRISENTAN 10MG TABLET PO SCH (08:26)
[2020-11-07] MEDS ORDERED: POTASSIUM CHLORIDE 20MEQ TABLET SR PO NR (10:45)
[2020-11-07] MEDS: FLUTICASONE/VILANTEROL 200-25 BLST.W.DEV ORI SCH (11:34)
[2020-11-07 12:00] VITALS: BP 125/64
[2020-11-07] MEDS ORDERED: POTASSIUM CHLORIDE 20MEQ TABLET SR PO SCH (12:00)
[2020-11-07 13:40] LABS: PLATELET ESTIMATE NORMAL
[2020-11-07 16:00] VITALS: BP 126/69
[2020-11-07 20:40] VITALS: BP 111/55
[2020-11-07] MEDS: CITALOPRAM HYDROBROMIDE 10MG TABLET PO SCH (22:46)
[2020-11-07] MEDS: INSULIN GLARGINE UD 100 UNITS/ML SYR SUBCUT SCH (22:53)
[2020-11-08 00:21] VITALS: BP 121/56
[2020-11-08 04:00] VITALS: BP 121/74
[2020-11-08] MEDS: HYDROCODONE/ACETAMINOPHEN 10/325MG TABLET PO PRN ×4 (04:21→18:51)
[2020-11-08 07:24] LABS: HEMATOCRIT. 31.2 % (36.0-48.0); HEMOGLOBIN. 9.9 g/dL (12.0-16.0); MEAN CORPUSCULAR HEMOGLOBIN 23.7 pg (28.0-32.0); MEAN CORPUSCULAR VOLUME 74.9 fL (81.0-99.0); MEAN PLATELET VOLUME 7.3 fl (7.4-10.4); PLATELET 326 x1000/uL (130-400); RED BLOOD CELL COUNT 4.17 mill/uL (4.2-5.4); RED CELL DISTRIBUTION WIDTH 24.4 % (11.6-14.6)
[2020-11-08] MEDS: BLOOD SUGAR DIAGNOSTIC STRIP TEST SCH ×4 (07:53→21:29)
[2020-11-08 08:00] VITALS: BP 120/60
[2020-11-08] MEDS: INSULIN LISPRO 100 UNITS/ML SUBCUT SCH ×4 (08:49→21:28)
[2020-11-08] MEDS: FLUTICASONE/VILANTEROL 200-25 BLST.W.DEV ORI SCH (09:01)
[2020-11-08] MEDS: UMECLIDINIUM BROMIDE 1 INH BLST.W.DEV IH SCH (09:01)
[2020-11-08] MEDS: AMBRISENTAN 10MG TABLET PO SCH (09:01)
[2020-11-08] MEDS: FUROSEMIDE 100MG/10ML VIAL IVP SCH ×2 (09:02→21:00)
[2020-11-08] MEDS: METFORMIN HCL 500MG TABLET PO SCH (09:02)
[2020-11-08] MEDS: LINAGLIPTIN 5MG TABLET PO SCH (09:02)
[2020-11-08] MEDS: DILTIAZEM HCL 180MG CAPSULE CD 24HR PO SCH (09:02)
[2020-11-08] MEDS: PREDNISONE 20MG TABLET PO SCH (09:02)
[2020-11-08] MEDS: GLIMEPIRIDE 2MG TABLET PO SCH ×2 (09:03→16:42)
[2020-11-08] MEDS: FAMOTIDINE 20MG TABLET PO SCH ×2 (09:03→16:43)
[2020-11-08] MEDS: MULTIVITAMINS,THER W-MINERALS TABLET PO SCH (09:03)
[2020-11-08] MEDS: FERROUS SULFATE 325MG TABLET PO SCH ×3 (09:03→16:42)
[2020-11-08] MEDS: POTASSIUM CHLORIDE 20MEQ TABLET SR PO SCH (09:03)
[2020-11-08] MEDS: APIXABAN 5 MG TABLET PO SCH ×2 (09:03→16:42)
[2020-11-08] MEDS: METHIMAZOLE 5MG TABLET PO SCH (09:03)
[2020-11-08 12:00] VITALS: BP 117/54
[2020-11-08] MEDS ORDERED: POTASSIUM CHLORIDE 20MEQ TABLET SR PO NR (12:00)
[2020-11-08 16:00] VITALS: BP 116/55
[2020-11-08 18:52] LABS: PLATELET ESTIMATE NORMAL
[2020-11-08 20:00] VITALS: BP 128/59
[2020-11-08] MEDS: CITALOPRAM HYDROBROMIDE 10MG TABLET PO SCH (21:25)
[2020-11-08] MEDS: INSULIN GLARGINE UD 100 UNITS/ML SYR SUBCUT SCH (21:27)
[2020-11-08] MEDS: ALPRAZOLAM 0.5 MG TABLET PO PRN (21:34)
[2020-11-09] VITALS: BP 109/62
[2020-11-09] MEDS: HYDROCODONE/ACETAMINOPHEN 10/325MG TABLET PO PRN ×4 (06:22→20:36)
[2020-11-09] MEDS: INSULIN LISPRO 100 UNITS/ML SUBCUT SCH ×4 (07:50→21:29)
[2020-11-09 07:51] LABS: HEMATOCRIT. 32.5 % (36.0-48.0); HEMOGLOBIN. 10.2 g/dL (12.0-16.0); MEAN CORPUSCULAR HEMOGLOBIN 23.5 pg (28.0-32.0); MEAN CORPUSCULAR VOLUME 75.2 fL (81.0-99.0); PLATELET 271 x1000/uL (130-400); RED BLOOD CELL COUNT 4.32 mill/uL (4.2-5.4); RED CELL DISTRIBUTION WIDTH 24.5 % (11.6-14.6)
[2020-11-09 07:55] VITALS: BP 157/82
[2020-11-09] MEDS: BLOOD SUGAR DIAGNOSTIC STRIP TEST SCH ×4 (07:58→20:50)
[2020-11-09] MEDS: FERROUS SULFATE 325MG TABLET PO SCH ×3 (09:04→17:08)
[2020-11-09] MEDS: FAMOTIDINE 20MG TABLET PO SCH ×2 (09:05→17:08)
[2020-11-09] MEDS: POTASSIUM CHLORIDE 20MEQ TABLET SR PO SCH ×4 (09:05→17:08)
[2020-11-09] MEDS: PREDNISONE 20MG TABLET PO SCH (09:06)
[2020-11-09] MEDS: MULTIVITAMINS,THER W-MINERALS TABLET PO SCH (09:06)
[2020-11-09] MEDS: APIXABAN 5 MG TABLET PO SCH ×2 (09:06→17:42)
[2020-11-09] MEDS: DILTIAZEM HCL 180MG CAPSULE CD 24HR PO SCH (09:07)
[2020-11-09] MEDS: METFORMIN HCL 500MG TABLET PO SCH (09:07)
[2020-11-09] MEDS: METHIMAZOLE 5MG TABLET PO SCH (09:07)
[2020-11-09] MEDS: GLIMEPIRIDE 2MG TABLET PO SCH ×2 (09:07→17:08)
[2020-11-09] MEDS: AMBRISENTAN 10MG TABLET PO SCH (09:09)
[2020-11-09] MEDS: FUROSEMIDE 100MG/10ML VIAL IVP SCH ×2 (09:10→20:35)
[2020-11-09] MEDS: FLUTICASONE/VILANTEROL 200-25 BLST.W.DEV ORI SCH (09:12)
[2020-11-09] MEDS: UMECLIDINIUM BROMIDE 1 INH BLST.W.DEV IH SCH (09:12)
[2020-11-09] MEDS: LINAGLIPTIN 5MG TABLET PO SCH (09:40)
[2020-11-09 10:08] LABS: PLATELET ESTIMATE NORMAL
[2020-11-09 12:15] VITALS: BP 115/76
[2020-11-09 16:00] VITALS: BP 106/77
[2020-11-09 20:00] VITALS: BP 120/72
[2020-11-09] MEDS: CITALOPRAM HYDROBROMIDE 10MG TABLET PO SCH (20:35)
[2020-11-09] MEDS: ALPRAZOLAM 0.5 MG TABLET PO PRN (21:29)
[2020-11-09] MEDS: INSULIN GLARGINE UD 100 UNITS/ML SYR SUBCUT SCH (21:29)
[2020-11-10] VITALS: BP 107/70
[2020-11-10 04:00] VITALS: BP 118/59
[2020-11-10] MEDS: HYDROCODONE/ACETAMINOPHEN 10/325MG TABLET PO PRN ×4 (04:55→20:10)
[2020-11-10] MEDS: BLOOD SUGAR DIAGNOSTIC STRIP TEST SCH ×4 (06:06→20:32)
[2020-11-10 07:50] VITALS: BP 107/57
[2020-11-10] MEDS: FERROUS SULFATE 325MG TABLET PO SCH ×3 (08:47→17:46)
[2020-11-10] MEDS: POTASSIUM CHLORIDE 20MEQ TABLET SR PO SCH ×4 (08:48→20:52)
[2020-11-10] MEDS: METHIMAZOLE 5MG TABLET PO SCH (08:48)
[2020-11-10] MEDS: LINAGLIPTIN 5MG TABLET PO SCH (08:50)
[2020-11-10] MEDS: PREDNISONE 20MG TABLET PO SCH (08:50)
[2020-11-10] MEDS: GLIMEPIRIDE 2MG TABLET PO SCH ×2 (08:50→17:46)
[2020-11-10] MEDS: MULTIVITAMINS,THER W-MINERALS TABLET PO SCH (08:51)
[2020-11-10] MEDS: METFORMIN HCL 500MG TABLET PO SCH (08:51)
[2020-11-10] MEDS: FAMOTIDINE 20MG TABLET PO SCH ×2 (08:51→17:46)
[2020-11-10] MEDS: APIXABAN 5 MG TABLET PO SCH ×2 (08:51→17:46)
[2020-11-10] MEDS: AMBRISENTAN 10MG TABLET PO SCH (08:52)
[2020-11-10] MEDS: UMECLIDINIUM BROMIDE 1 INH BLST.W.DEV IH SCH (08:52)
[2020-11-10] MEDS: DILTIAZEM HCL 180MG CAPSULE CD 24HR PO SCH (08:52)
[2020-11-10] MEDS: FLUTICASONE/VILANTEROL 200-25 BLST.W.DEV ORI SCH (08:52)
[2020-11-10] MEDS: INSULIN LISPRO 100 UNITS/ML SUBCUT SCH ×4 (08:54→20:53)
[2020-11-10] MEDS ORDERED: FUROSEMIDE 40MG/4ML VIAL IVP SCH (09:15)
[2020-11-10] MEDS ORDERED: FUROSEMIDE 100MG/10ML VIAL IVP SCH (09:15)
[2020-11-10] MEDS: ALBUTEROL (0.083%) 2.5MG/3ML NEB HHN PRN (11:14)
[2020-11-10 12:00] VITALS: BP 126/64
[2020-11-10 16:00] VITALS: BP 11/42
[2020-11-10 20:00] VITALS: BP 123/57
[2020-11-10] MEDS: FUROSEMIDE 40MG TABLET PO SCH (20:52)
[2020-11-10] MEDS: INSULIN GLARGINE UD 100 UNITS/ML SYR SUBCUT SCH (20:54)
[2020-11-10] MEDS: CITALOPRAM HYDROBROMIDE 10MG TABLET PO SCH (20:55)
[2020-11-10] MEDS: ALPRAZOLAM 0.5 MG TABLET PO PRN (22:24)
[2020-11-11] VITALS: BP 128/64
[2020-11-11 04:00] VITALS: BP 102/53
[2020-11-11] MEDS: HYDROCODONE/ACETAMINOPHEN 10/325MG TABLET PO PRN ×3 (05:00→13:10)
[2020-11-11] MEDS: BLOOD SUGAR DIAGNOSTIC STRIP TEST SCH ×2 (06:48→12:20)
[2020-11-11] MEDS: INSULIN LISPRO 100 UNITS/ML SUBCUT SCH ×2 (07:44→13:11)
[2020-11-11 08:09] VITALS: BP 128/95
[2020-11-11] MEDS: PREDNISONE 20MG TABLET PO SCH (08:59)
[2020-11-11] MEDS: POTASSIUM CHLORIDE 20MEQ TABLET SR PO SCH (08:59)
[2020-11-11] MEDS: MULTIVITAMINS,THER W-MINERALS TABLET PO SCH (09:00)
[2020-11-11] MEDS: APIXABAN 5 MG TABLET PO SCH (09:00)
[2020-11-11] MEDS: METHIMAZOLE 5MG TABLET PO SCH (09:00)
[2020-11-11] MEDS: FAMOTIDINE 20MG TABLET PO SCH (09:00)
[2020-11-11] MEDS: GLIMEPIRIDE 2MG TABLET PO SCH (09:00)
[2020-11-11] MEDS: FERROUS SULFATE 325MG TABLET PO SCH ×2 (09:01→13:06)
[2020-11-11] MEDS: METFORMIN HCL 500MG TABLET PO SCH (09:01)
[2020-11-11] MEDS: LINAGLIPTIN 5MG TABLET PO SCH (09:01)
[2020-11-11] MEDS: AMBRISENTAN 10MG TABLET PO SCH (09:01)
[2020-11-11] MEDS: FLUTICASONE/VILANTEROL 200-25 BLST.W.DEV ORI SCH (09:02)
[2020-11-11] MEDS: UMECLIDINIUM BROMIDE 1 INH BLST.W.DEV IH SCH (09:02)
[2020-11-11] MEDS: DILTIAZEM HCL 180MG CAPSULE CD 24HR PO SCH (09:03)
[2020-11-11] MEDS: FUROSEMIDE 40MG TABLET PO SCH (09:10)
[2020-11-11 12:00] VITALS: BP 134/86
[2020-11-11 12:23] VITALS: BP 134/73
[2020-11-11 16:00] VITALS: BP 135/68
== END 2020-11-11 16:27 | disposition home health service (06) | DRG 189 ==
LOC: ER 19:01 → EDBEDREQ 22:33 → EDBEDREQTM 22:33 → ENRESERV 23:48 → 7WST 10-30 01:04 → 6WST 11-01 00:15 → 3WST 11-01 00:39 → 6WST 11-01 00:55
PROVIDERS: ADMIT Internal Medicine Pulmonary Disease; ATTEND Internal Medicine Pulmonary Disease
PROC: 5A09457 Assistance with Respiratory Ventilation, 24-96 Consecutive Hours, Continuous Positive Airway Pressure (ICD-10-PCS; principal; 2020-10-29)
PROC: 5A09557 Assistance with Respiratory Ventilation, Greater than 96 Consecutive Hours, Continuous Positive Airway Pressure (ICD-10-PCS; 2020-10-31)
DX: J96.20 Acute and chronic respiratory failure, unspecified whether with hypoxia or hypercapnia (principal); I33.0 Acute and subacute infective endocarditis; J44.1 Chronic obstructive pulmonary disease with (acute) exacerbation; I48.20 Chronic atrial fibrillation, unspecified; E66.2 Morbid (severe) obesity with alveolar hypoventilation; Z68.41 Body mass index [BMI] 40.0-44.9, adult; I48.92 Unspecified atrial flutter; I27.81 Cor pulmonale (chronic); K21.9 Gastro-esophageal reflux disease without esophagitis; I11.0 Hypertensive heart disease with heart failure; I50.9 Heart failure, unspecified; D64.9 Anemia, unspecified; E05.90 Thyrotoxicosis, unspecified without thyrotoxic crisis or storm; D12.6 Benign neoplasm of colon, unspecified; F41.9 Anxiety disorder, unspecified; G89.29 Other chronic pain; M54.5 Low back pain; E78.5 Hyperlipidemia, unspecified; I35.0 Nonrheumatic aortic (valve) stenosis; F17.210 Nicotine dependence, cigarettes, uncomplicated; D35.01 Benign neoplasm of right adrenal gland; I27.20 Pulmonary hypertension, unspecified; E87.6 Hypokalemia; Z95.0 Presence of cardiac pacemaker; Z79.52 Long term (current) use of systemic steroids; Z79.1 Long term (current) use of non-steroidal anti-inflammatories (NSAID); Z79.899 Other long term (current) drug therapy; Z80.1 Family history of malignant neoplasm of trachea, bronchus and lung; Z82.49 Family history of ischemic heart disease and other diseases of the circulatory system; Z83.3 Family history of diabetes mellitus; Z79.01 Long term (current) use of anticoagulants; Z79.4 Long term (current) use of insulin; Z20.822 Contact with and (suspected) exposure to COVID-19; E11.65 Type 2 diabetes mellitus with hyperglycemia
CPT/HCPCS: 36415; 71045; 71275; 80048; 80053; 82962; 83036; 83735; 83880; 84100; 84132; 84439; 84443; 84481; 84484; 85025; 93005; 93970; 93971; 94640; 94660; 99291; J1815; J1940; J1956; J2270; J2930; J3475; J7042; J7512; Q9967; U0003; U0005

== ENCOUNTER 2021-01-23 18:58 | Inpatient (IN) | payer MEDICARE, MEDICAID ==
[~2021-01-23] VITALS: Ht 162.6 cm; Wt 117.9 kg
[~2021-01-23 18:58] MED LIST changes: -BRIN8DRO EACHEYE; -LATA2.5D14 EACHEYE; -UMEC62.5 IH
[2021-01-23] MEDS ORDERED: ASPIRIN 81MG TABLET PO ONE (22:45)
[2021-01-23 23:02] LABS: BASOPHILS % 0.2 % (0.0-2.0); EOSINOPHILS % 3.5 % (0.0-5.0); HEMATOCRIT. 30.9 % (36.0-48.0); HEMOGLOBIN. 9.4 g/dL (12.0-16.0); LYMPHOCYTES % 15.4 % (20.0-50.0); MEAN CORPUSCULAR HEMOGLOBIN 20.9 pg (28.0-32.0); MONOCYTES % 7.7 % (2.0-8.0); NEUTROPHILS % 73.2 % (40.0-76.0); PLATELET 329 x1000/uL (130-400); RED BLOOD CELL COUNT 4.48 mill/uL (4.2-5.4); RED CELL DISTRIBUTION WIDTH 21.8 % (11.6-14.6)
[2021-01-23 23:08] LABS: CHLORIDE 105 mEq/L (98-107)
[2021-01-23] MEDS: NITROGLYCERIN 0.4MG TABLET SL SL PRN ×2 (23:11→23:12)
[2021-01-23] MEDS ORDERED: IPRATROPIUM BROMIDE (0.02%) 0.5MG/2.5ML NEB HHN ONE (23:15)
[2021-01-23] MEDS ORDERED: ALBUTEROL (0.083%) 2.5MG/3ML NEB HHN ONE (23:15)
[2021-01-23] MEDS ORDERED: FUROSEMIDE 40MG/4ML VIAL IVP ONE (23:15)
[2021-01-23 23:25] LABS: PLATELET ESTIMATE NORMAL
[2021-01-24] MEDS ORDERED: MORPHINE SULFATE 4 MG/ML CPJ (NOT FOR IM USE) IV NR (00:30)
[2021-01-24] MEDS: NITROGLYCERIN 0.4MG TABLET SL SL PRN (02:43)
[2021-01-24] MEDS ORDERED: IPRATROPIUM BROMIDE (0.02%) 0.5MG/2.5ML NEB ONE (03:21)
[2021-01-24] MEDS ORDERED: IPRATROPIUM BROMIDE (0.02%) 0.5MG/2.5ML NEB HHN PRN (09:45)
[2021-01-24] MEDS ORDERED: ACETAMINOPHEN 325MG TABLET PO PRN (09:45)
[2021-01-24] MEDS ORDERED: IPRATROPIUM/ALBUTEROL 0.5-3(2.5)MG/3ML NEB HHN PRN (09:45)
[2021-01-24] MEDS ORDERED: DEXTROSE 50% WATER 50ML SYRINGE IV PRN (10:30)
[2021-01-24] MEDS ORDERED: METOLAZONE 5MG TABLET PO SCH (10:30)
[2021-01-24] MEDS: HYDROCODONE/ACETAMINOPHEN 10/325MG TABLET PO PRN ×3 (10:56→21:00)
[2021-01-24] MEDS ORDERED: NALOXONE HCL 0.4MG/ML VIAL IV PRN (11:15)
[2021-01-24] MEDS: FUROSEMIDE 40MG/4ML VIAL IV SCH ×2 (11:47→20:59)
[2021-01-24] MEDS: FAMOTIDINE 20MG/2ML VIAL IV SCH ×2 (11:47→21:00)
[2021-01-24] MEDS: BLOOD SUGAR DIAGNOSTIC STRIP TEST SCH ×3 (11:47→21:01)
[2021-01-24] MEDS: PREDNISONE 20MG TABLET PO SCH (11:47)
[2021-01-24] MEDS: ASCORBIC ACID 500 MG TABLET PO SCH ×2 (11:47→18:11)
[2021-01-24] MEDS: INSULIN LISPRO (LOW DOSE) 100 UNITS/ML SUBCUT SCH ×3 (11:51→21:01)
[2021-01-24] MEDS: APIXABAN 5 MG TABLET PO SCH ×2 (12:42→18:20)
[2021-01-24] MEDS: FERROUS SULFATE 325MG TABLET PO SCH ×3 (12:42→18:20)
[2021-01-24] MEDS: METFORMIN HCL 500MG TABLET PO SCH (12:42)
[2021-01-24] MEDS: METHIMAZOLE 5MG TABLET PO SCH (12:42)
[2021-01-24] MEDS: METOLAZONE 5MG TABLET PO SCH (12:43)
[2021-01-24] MEDS: LINAGLIPTIN 5MG TABLET PO SCH (12:43)
[2021-01-24 14:28] LABS: BG BASE EXCESS 2.6 mmol/L (-2.0-2.0); BG CARBOXYHEMOGLOBIN 0.2 % (0.5-1.5); BG DEOXYHEMOGLOBIN 2.1 % (0.0-5.0); BG FRACTION INSPIRED OXYGEN 32; BG HCO3 ACT 28.9 mmol/L (22.0-26.0); BG METHEMOGLOBIN 0.2 % (0.0-1.5); BG OXYGEN SATURATION 97.9 % (92.0-98.5); BG OXYHEMOGLOBIN 97.5 % (94.0-97.0); BG PCO2 53.1 mmHg (35.0-45.0); BG PH 7.354 (7.350-7.450); BG PO2 128.6 mmHg (75.0-100.0); BG SAMPLE SITE LEFT BRACHIAL; BG TOTAL HEMOGLOBIN 10.8 g/dL (12.0-18.0); BG VENT MODE NASAL CANNULA
[2021-01-24 20:25] VITALS: BP 130/70
[2021-01-24] MEDS: CITALOPRAM HYDROBROMIDE 10MG TABLET PO SCH (21:00)
[2021-01-25] VITALS: BP 117/59
[2021-01-25] MEDS: IPRATROPIUM/ALBUTEROL 0.5-3(2.5)MG/3ML NEB HHN SCH ×6 (00:02→20:57)
[2021-01-25 04:00] VITALS: BP 114/64
[2021-01-25] MEDS: HYDROCODONE/ACETAMINOPHEN 10/325MG TABLET PO PRN ×4 (06:27→21:42)
[2021-01-25] MEDS: BLOOD SUGAR DIAGNOSTIC STRIP TEST SCH ×4 (06:27→21:00)
[2021-01-25 08:00] VITALS: BP 136/70
[2021-01-25] MEDS: PREDNISONE 20MG TABLET PO SCH (08:52)
[2021-01-25] MEDS: METFORMIN HCL 500MG TABLET PO SCH (08:53)
[2021-01-25] MEDS: METOLAZONE 5MG TABLET PO SCH (08:53)
[2021-01-25] MEDS: LINAGLIPTIN 5MG TABLET PO SCH (08:53)
[2021-01-25] MEDS: ASCORBIC ACID 500 MG TABLET PO SCH ×2 (08:53→16:17)
[2021-01-25] MEDS: FERROUS SULFATE 325MG TABLET PO SCH ×3 (08:53→16:17)
[2021-01-25] MEDS: METHIMAZOLE 5MG TABLET PO SCH (08:53)
[2021-01-25] MEDS: FAMOTIDINE 20MG/2ML VIAL IV SCH ×2 (08:53→21:40)
[2021-01-25] MEDS: INSULIN LISPRO (LOW DOSE) 100 UNITS/ML SUBCUT SCH ×4 (08:54→22:03)
[2021-01-25] MEDS: FUROSEMIDE 40MG/4ML VIAL IV SCH ×2 (08:54→21:00)
[2021-01-25] MEDS: APIXABAN 5 MG TABLET PO SCH ×2 (08:55→16:17)
[2021-01-25] MEDS ORDERED: ERGOCALCIFEROL 50000UNITS CAPSULE PO SCH (09:00)
[2021-01-25 12:00] VITALS: BP 125/66
[2021-01-25 16:00] VITALS: BP 113/66
[2021-01-25 20:00] VITALS: BP 95/47
[2021-01-25] MEDS: CITALOPRAM HYDROBROMIDE 10MG TABLET PO SCH (21:42)
[2021-01-26] VITALS: BP 106/57
[2021-01-26] MEDS: IPRATROPIUM/ALBUTEROL 0.5-3(2.5)MG/3ML NEB HHN SCH ×6 (01:01→21:10)
[2021-01-26 04:00] VITALS: BP 111/59
[2021-01-26] MEDS: HYDROCODONE/ACETAMINOPHEN 10/325MG TABLET PO PRN ×4 (05:46→20:50)
[2021-01-26 06:01] LABS: BASOPHILS % 0.3 % (0.0-2.0); EOSINOPHILS % 0.2 % (0.0-5.0); HEMATOCRIT. 29.4 % (36.0-48.0); MEAN CORPUSCULAR HEMOGLOBIN 21.2 pg (28.0-32.0); MEAN CORPUSCULAR VOLUME 68.8 fL (81.0-99.0); MEAN PLATELET VOLUME 7.4 fl (7.4-10.4); MONOCYTES % 9.2 % (2.0-8.0); NEUTROPHILS % 79.3 % (40.0-76.0); PLATELET 333 x1000/uL (130-400); RED BLOOD CELL COUNT 4.27 mill/uL (4.2-5.4); RED CELL DISTRIBUTION WIDTH 21.9 % (11.6-14.6)
[2021-01-26 06:35] LABS: TOTAL IRON BINDING CAPACITY 365 ug/dL (250-450)
[2021-01-26] MEDS: BLOOD SUGAR DIAGNOSTIC STRIP TEST SCH ×4 (07:32→20:49)
[2021-01-26 08:00] VITALS: BP 138/67
[2021-01-26] MEDS: LINAGLIPTIN 5MG TABLET PO SCH (08:30)
[2021-01-26] MEDS: METFORMIN HCL 500MG TABLET PO SCH (08:30)
[2021-01-26] MEDS: PREDNISONE 20MG TABLET PO SCH (08:30)
[2021-01-26] MEDS: APIXABAN 5 MG TABLET PO SCH ×2 (08:31→16:55)
[2021-01-26] MEDS: FERROUS SULFATE 325MG TABLET PO SCH ×3 (08:31→16:55)
[2021-01-26] MEDS: METOLAZONE 5MG TABLET PO SCH (08:31)
[2021-01-26] MEDS: METHIMAZOLE 5MG TABLET PO SCH (08:31)
[2021-01-26] MEDS: ASCORBIC ACID 500 MG TABLET PO SCH ×2 (08:32→16:55)
[2021-01-26] MEDS: FAMOTIDINE 20MG/2ML VIAL IV SCH ×2 (08:32→20:10)
[2021-01-26] MEDS: FUROSEMIDE 40MG/4ML VIAL IV SCH ×2 (08:32→20:10)
[2021-01-26] MEDS: INSULIN LISPRO (LOW DOSE) 100 UNITS/ML SUBCUT SCH ×4 (08:34→20:49)
[2021-01-26 12:00] VITALS: BP 106/53
[2021-01-26 16:00] VITALS: BP 110/57
[2021-01-26 19:55] VITALS: BP 115/50
[2021-01-26] MEDS: ALPRAZOLAM 0.5 MG TABLET PO PRN (20:10)
[2021-01-26] MEDS: CITALOPRAM HYDROBROMIDE 10MG TABLET PO SCH (20:13)
[2021-01-27] VITALS (7 sets, daily range): BP systolic 108–137; BP diastolic 55–79
[2021-01-27] MEDS: IPRATROPIUM/ALBUTEROL 0.5-3(2.5)MG/3ML NEB HHN SCH ×6 (00:56→20:00)
[2021-01-27] MEDS: HYDROCODONE/ACETAMINOPHEN 10/325MG TABLET PO PRN ×4 (05:03→19:06)
[2021-01-27] MEDS: BLOOD SUGAR DIAGNOSTIC STRIP TEST SCH ×5 (05:16→20:43)
[2021-01-27] MEDS: INSULIN LISPRO (LOW DOSE) 100 UNITS/ML SUBCUT SCH ×2 (08:31→12:56)
[2021-01-27] MEDS: METHIMAZOLE 5MG TABLET PO SCH (09:54)
[2021-01-27] MEDS: FAMOTIDINE 20MG/2ML VIAL IV SCH (09:58)
[2021-01-27] MEDS: APIXABAN 5 MG TABLET PO SCH ×2 (09:58→17:05)
[2021-01-27] MEDS: FUROSEMIDE 40MG/4ML VIAL IV SCH ×2 (09:58→20:45)
[2021-01-27] MEDS: METFORMIN HCL 500MG TABLET PO SCH (09:58)
[2021-01-27] MEDS: METOLAZONE 5MG TABLET PO SCH (09:59)
[2021-01-27] MEDS: ASCORBIC ACID 500 MG TABLET PO SCH ×2 (09:59→17:05)
[2021-01-27] MEDS: FERROUS SULFATE 325MG TABLET PO SCH ×3 (09:59→17:05)
[2021-01-27] MEDS: LINAGLIPTIN 5MG TABLET PO SCH (10:01)
[2021-01-27] MEDS: PREDNISONE 20MG TABLET PO SCH (10:01)
[2021-01-27] MEDS ORDERED: DEXTROSE 50% WATER 50ML SYRINGE IV PRN (17:45)
[2021-01-27] MEDS: INSULIN LISPRO 100 UNITS/ML SUBCUT SCH ×2 (18:01→21:12)
[2021-01-27] MEDS: FAMOTIDINE 20MG TABLET PO SCH (20:44)
[2021-01-27] MEDS: LETAIRIS (AMBRISENTAN) 10MG TABLET PO SCH (20:45)
[2021-01-27] MEDS: CITALOPRAM HYDROBROMIDE 10MG TABLET PO SCH (20:45)
[2021-01-27] MEDS: IRON SUCROSE COMPLEX 100 MG/5 ML ML IV SCH (20:46)
[2021-01-27] MEDS: ALPRAZOLAM 0.5 MG TABLET PO PRN (21:07)
[2021-01-28] VITALS: BP 126/51
[2021-01-28 03:44] VITALS: BP 130/67
[2021-01-28] MEDS: IPRATROPIUM/ALBUTEROL 0.5-3(2.5)MG/3ML NEB HHN SCH ×6 (04:50→23:04)
[2021-01-28] MEDS: HYDROCODONE/ACETAMINOPHEN 10/325MG TABLET PO PRN ×4 (05:24→20:11)
[2021-01-28] MEDS: BLOOD SUGAR DIAGNOSTIC STRIP TEST SCH ×4 (07:20→20:37)
[2021-01-28 08:00] VITALS: BP 102/79
[2021-01-28] MEDS: METFORMIN HCL 500MG TABLET PO SCH (08:56)
[2021-01-28] MEDS: PREDNISONE 20MG TABLET PO SCH (08:56)
[2021-01-28] MEDS: LINAGLIPTIN 5MG TABLET PO SCH (08:56)
[2021-01-28] MEDS: ASCORBIC ACID 500 MG TABLET PO SCH ×2 (08:57→17:41)
[2021-01-28] MEDS: APIXABAN 5 MG TABLET PO SCH ×2 (08:57→17:40)
[2021-01-28] MEDS: METHIMAZOLE 5MG TABLET PO SCH (08:57)
[2021-01-28] MEDS: METOLAZONE 5MG TABLET PO SCH (08:57)
[2021-01-28] MEDS: FUROSEMIDE 40MG/4ML VIAL IV SCH ×2 (08:58→20:39)
[2021-01-28] MEDS: FAMOTIDINE 20MG TABLET PO SCH ×2 (08:58→20:39)
[2021-01-28] MEDS: IRON SUCROSE COMPLEX 100 MG/5 ML ML IV SCH (08:58)
[2021-01-28] MEDS: FERROUS SULFATE 325MG TABLET PO SCH ×3 (08:58→17:41)
[2021-01-28] MEDS: LETAIRIS (AMBRISENTAN) 10MG TABLET PO SCH (09:01)
[2021-01-28] MEDS: INSULIN LISPRO 100 UNITS/ML SUBCUT SCH ×4 (09:35→20:39)
[2021-01-28 12:00] VITALS: BP 109/60
[2021-01-28 16:00] VITALS: BP_SYST 102; BP_SYST 144; BP_DIAS 46; BP_DIAS 97
[2021-01-28 20:00] VITALS: BP 110/55
[2021-01-28] MEDS: CITALOPRAM HYDROBROMIDE 10MG TABLET PO SCH (20:39)
[2021-01-28] MEDS: ALPRAZOLAM 0.5 MG TABLET PO PRN (22:27)
[2021-01-29] VITALS: BP 119/62
[2021-01-29 04:00] VITALS: BP 101/53
[2021-01-29] MEDS: IPRATROPIUM/ALBUTEROL 0.5-3(2.5)MG/3ML NEB HHN SCH ×5 (04:24→21:04)
[2021-01-29] MEDS: HYDROCODONE/ACETAMINOPHEN 10/325MG TABLET PO PRN ×4 (05:44→20:37)
[2021-01-29 06:58] LABS: BASOPHILS % 0.1 % (0.0-2.0); EOSINOPHILS % 0.4 % (0.0-5.0); HEMATOCRIT. 30.5 % (36.0-48.0); HEMOGLOBIN. 9.7 g/dL (12.0-16.0); LYMPHOCYTES % 14.2 % (20.0-50.0); MEAN CORPUSCULAR HEMOGLOBIN 21.6 pg (28.0-32.0); MEAN CORPUSCULAR VOLUME 68.2 fL (81.0-99.0); MEAN PLATELET VOLUME 7.4 fl (7.4-10.4); MONOCYTES % 8.4 % (2.0-8.0); NEUTROPHILS % 76.9 % (40.0-76.0); PLATELET 430 x1000/uL (130-400); RED BLOOD CELL COUNT 4.47 mill/uL (4.2-5.4); RED CELL DISTRIBUTION WIDTH 22.3 % (11.6-14.6)
[2021-01-29] MEDS: BLOOD SUGAR DIAGNOSTIC STRIP TEST SCH ×4 (07:20→20:38)
[2021-01-29] MEDS: IRON SUCROSE COMPLEX 100 MG/5 ML ML IV SCH (09:39)
[2021-01-29] MEDS: POTASSIUM CHLORIDE 20MEQ TABLET SR PO SCH ×2 (09:39→13:32)
[2021-01-29] MEDS: FERROUS SULFATE 325MG TABLET PO SCH ×3 (09:39→18:44)
[2021-01-29] MEDS: FAMOTIDINE 20MG TABLET PO SCH ×2 (09:39→20:37)
[2021-01-29] MEDS: FUROSEMIDE 40MG/4ML VIAL IV SCH ×2 (09:39→20:37)
[2021-01-29] MEDS: ASCORBIC ACID 500 MG TABLET PO SCH ×2 (09:39→18:44)
[2021-01-29] MEDS: LINAGLIPTIN 5MG TABLET PO SCH (09:39)
[2021-01-29] MEDS: PREDNISONE 20MG TABLET PO SCH (09:40)
[2021-01-29] MEDS: APIXABAN 5 MG TABLET PO SCH ×2 (09:40→18:43)
[2021-01-29] MEDS: METFORMIN HCL 500MG TABLET PO SCH (09:40)
[2021-01-29] MEDS: LETAIRIS (AMBRISENTAN) 10MG TABLET PO SCH (09:41)
[2021-01-29] MEDS: INSULIN LISPRO 100 UNITS/ML SUBCUT SCH ×4 (10:10→20:38)
[2021-01-29] MEDS: METHIMAZOLE 5MG TABLET PO SCH (10:11)
[2021-01-29] MEDS: METOLAZONE 5MG TABLET PO SCH (10:12)
[2021-01-29 20:00] VITALS: BP 136/65
[2021-01-29] MEDS: CITALOPRAM HYDROBROMIDE 10MG TABLET PO SCH (20:36)
[2021-01-29] MEDS: TEMAZEPAM 15MG CAPSULE PO PRN (21:14)
[2021-01-30 00:32] VITALS: BP 107/67
[2021-01-30] MEDS: IPRATROPIUM/ALBUTEROL 0.5-3(2.5)MG/3ML NEB HHN SCH ×6 (00:53→20:40)
[2021-01-30 04:00] VITALS: BP 116/52
[2021-01-30] MEDS: HYDROCODONE/ACETAMINOPHEN 10/325MG TABLET PO PRN ×4 (05:56→20:40)
[2021-01-30 06:43] LABS: BASOPHILS % 0.3 % (0.0-2.0); EOSINOPHILS % 0.4 % (0.0-5.0); HEMATOCRIT. 29.9 % (36.0-48.0); HEMOGLOBIN. 9.5 g/dL (12.0-16.0); LYMPHOCYTES % 11.7 % (20.0-50.0); MEAN CORPUSCULAR HEMOGLOBIN 21.9 pg (28.0-32.0); MEAN CORPUSCULAR VOLUME 68.6 fL (81.0-99.0); MEAN PLATELET VOLUME 7.6 fl (7.4-10.4); MONOCYTES % 7.4 % (2.0-8.0); NEUTROPHILS % 80.2 % (40.0-76.0); PLATELET 433 x1000/uL (130-400); RED BLOOD CELL COUNT 4.36 mill/uL (4.2-5.4); RED CELL DISTRIBUTION WIDTH 22.7 % (11.6-14.6)
[2021-01-30] MEDS: BLOOD SUGAR DIAGNOSTIC STRIP TEST SCH ×4 (07:50→20:40)
[2021-01-30 08:00] VITALS: BP 116/57
[2021-01-30] MEDS ORDERED: POTASSIUM CHLORIDE 20MEQ TABLET SR PO NR ×3 (08:30→17:00)
[2021-01-30] MEDS: LINAGLIPTIN 5MG TABLET PO SCH (08:42)
[2021-01-30] MEDS: APIXABAN 5 MG TABLET PO SCH ×2 (08:42→17:43)
[2021-01-30] MEDS: FUROSEMIDE 40MG/4ML VIAL IV SCH ×2 (08:42→21:10)
[2021-01-30] MEDS: ASCORBIC ACID 500 MG TABLET PO SCH ×2 (08:43→17:44)
[2021-01-30] MEDS: PREDNISONE 20MG TABLET PO SCH (08:43)
[2021-01-30] MEDS: METFORMIN HCL 500MG TABLET PO SCH (08:43)
[2021-01-30] MEDS: FERROUS SULFATE 325MG TABLET PO SCH ×3 (08:44→17:43)
[2021-01-30] MEDS: FAMOTIDINE 20MG TABLET PO SCH ×2 (08:44→20:40)
[2021-01-30] MEDS: METOLAZONE 5MG TABLET PO SCH (08:44)
[2021-01-30] MEDS: METHIMAZOLE 5MG TABLET PO SCH (08:44)
[2021-01-30] MEDS: LETAIRIS (AMBRISENTAN) 10MG TABLET PO SCH (08:45)
[2021-01-30] MEDS: INSULIN LISPRO 100 UNITS/ML SUBCUT SCH ×4 (08:53→21:10)
[2021-01-30 12:00] VITALS: BP 133/63
[2021-01-30 16:00] VITALS: BP 130/61
[2021-01-30 20:00] VITALS: BP 121/53
[2021-01-30] MEDS: CITALOPRAM HYDROBROMIDE 10MG TABLET PO SCH (20:40)
[2021-01-30] MEDS: TEMAZEPAM 15MG CAPSULE PO PRN (21:10)
[2021-01-31] VITALS: BP 98/45
[2021-01-31] MEDS: IPRATROPIUM/ALBUTEROL 0.5-3(2.5)MG/3ML NEB HHN SCH ×4 (00:12→12:06)
[2021-01-31 04:30] VITALS: BP 131/70
[2021-01-31] MEDS: HYDROCODONE/ACETAMINOPHEN 10/325MG TABLET PO PRN ×2 (06:07→10:27)
[2021-01-31] MEDS: BLOOD SUGAR DIAGNOSTIC STRIP TEST SCH ×2 (06:32→12:20)
[2021-01-31 08:08] VITALS: BP 123/58
[2021-01-31] MEDS: INSULIN LISPRO 100 UNITS/ML SUBCUT SCH ×2 (08:50→14:48)
[2021-01-31] MEDS: APIXABAN 5 MG TABLET PO SCH (08:51)
[2021-01-31] MEDS: PREDNISONE 20MG TABLET PO SCH (08:51)
[2021-01-31] MEDS: ASCORBIC ACID 500 MG TABLET PO SCH (08:51)
[2021-01-31] MEDS: LINAGLIPTIN 5MG TABLET PO SCH (08:51)
[2021-01-31] MEDS: METFORMIN HCL 500MG TABLET PO SCH (08:51)
[2021-01-31] MEDS: METOLAZONE 5MG TABLET PO SCH (08:51)
[2021-01-31] MEDS: METHIMAZOLE 5MG TABLET PO SCH (08:52)
[2021-01-31] MEDS: LETAIRIS (AMBRISENTAN) 10MG TABLET PO SCH (08:52)
[2021-01-31] MEDS: FERROUS SULFATE 325MG TABLET PO SCH ×2 (08:52→14:49)
[2021-01-31] MEDS: FAMOTIDINE 20MG TABLET PO SCH (08:53)
[2021-01-31] MEDS ORDERED: POTASSIUM CHLORIDE 20MEQ TABLET SR PO SCH (09:00)
[2021-01-31] MEDS: FUROSEMIDE 40MG/4ML VIAL IV SCH (09:10)
[2021-01-31 12:00] VITALS: BP 126/81
[2021-01-31 12:32] VITALS: BP 123/58
== END 2021-01-31 15:15 | disposition home or self-care (01) | DRG 189 ==
LOC: ER 18:58 → MICUSO 01-24 05:36 → 6WST 01-24 19:33 → UNDODISIN 01-30 16:08
PROVIDERS: ADMIT Internal Medicine Pulmonary Disease; ATTEND Internal Medicine Pulmonary Disease
PROC: 5A09357 Assistance with Respiratory Ventilation, Less than 24 Consecutive Hours, Continuous Positive Airway Pressure (ICD-10-PCS; principal; 2021-01-25)
PROC: 5A09357 Assistance with Respiratory Ventilation, Less than 24 Consecutive Hours, Continuous Positive Airway Pressure (ICD-10-PCS; 2021-01-26)
PROC: 5A09357 Assistance with Respiratory Ventilation, Less than 24 Consecutive Hours, Continuous Positive Airway Pressure (ICD-10-PCS; 2021-01-27)
PROC: 5A09357 Assistance with Respiratory Ventilation, Less than 24 Consecutive Hours, Continuous Positive Airway Pressure (ICD-10-PCS; 2021-01-28)
PROC: 5A09357 Assistance with Respiratory Ventilation, Less than 24 Consecutive Hours, Continuous Positive Airway Pressure (ICD-10-PCS; 2021-01-29)
PROC: 5A09357 Assistance with Respiratory Ventilation, Less than 24 Consecutive Hours, Continuous Positive Airway Pressure (ICD-10-PCS; 2021-01-30)
DX: J96.21 Acute and chronic respiratory failure with hypoxia (principal); I48.92 Unspecified atrial flutter; J44.1 Chronic obstructive pulmonary disease with (acute) exacerbation; J98.11 Atelectasis; Z68.41 Body mass index [BMI] 40.0-44.9, adult; I48.20 Chronic atrial fibrillation, unspecified; I43 Cardiomyopathy in diseases classified elsewhere; J96.22 Acute and chronic respiratory failure with hypercapnia; D12.6 Benign neoplasm of colon, unspecified; D50.9 Iron deficiency anemia, unspecified; E05.90 Thyrotoxicosis, unspecified without thyrotoxic crisis or storm; E11.65 Type 2 diabetes mellitus with hyperglycemia; E66.01 Morbid (severe) obesity due to excess calories; E78.5 Hyperlipidemia, unspecified; I50.9 Heart failure, unspecified; E87.6 Hypokalemia; G47.33 Obstructive sleep apnea (adult) (pediatric); F41.9 Anxiety disorder, unspecified; G89.29 Other chronic pain; I27.21 Secondary pulmonary arterial hypertension; I27.81 Cor pulmonale (chronic); I11.0 Hypertensive heart disease with heart failure; I48.0 Paroxysmal atrial fibrillation; I35.0 Nonrheumatic aortic (valve) stenosis; Z96.1 Presence of intraocular lens; K21.9 Gastro-esophageal reflux disease without esophagitis; Z20.822 Contact with and (suspected) exposure to COVID-19; Z79.01 Long term (current) use of anticoagulants; Z79.52 Long term (current) use of systemic steroids; Z80.1 Family history of malignant neoplasm of trachea, bronchus and lung; Z82.49 Family history of ischemic heart disease and other diseases of the circulatory system; Z83.3 Family history of diabetes mellitus; Z86.010 Personal history of colon polyps; Z86.16 Personal history of COVID-19; Z87.891 Personal history of nicotine dependence; Z90.710 Acquired absence of both cervix and uterus; Z98.41 Cataract extraction status, right eye; Z98.42 Cataract extraction status, left eye; Z99.81 Dependence on supplemental oxygen; Z79.899 Other long term (current) drug therapy; Z79.1 Long term (current) use of non-steroidal anti-inflammatories (NSAID)
CPT/HCPCS: 36415; 36600; 71045; 80048; 80053; 82375; 82805; 82962; 83036; 83540; 83550; 83880; 84132; 84484; 85025; 87426; 93005; 94640; 97116; 97162; 97166; 99285; J1815; J1940; J2270; J3490; J7512

== ENCOUNTER 2021-04-17 17:11 | Inpatient (IN) | payer MEDICARE, MEDICAID ==
[~2021-04-17] VITALS: Ht 162.6 cm; Wt 116.2 kg
[2021-04-17] MEDS ORDERED: MORPHINE SULFATE 4 MG/ML CPJ (NOT FOR IM USE) IV STA (18:20)
[2021-04-17 18:40] LABS: BASOPHILS % 0.7 % (0.0-2.0); EOSINOPHILS % 6.3 % (0.0-5.0); HEMOGLOBIN. 8.3 g/dL (12.0-16.0); LYMPHOCYTES % 16.8 % (20.0-50.0); MEAN CORPUSCULAR HEMOGLOBIN 21.7 pg (28.0-32.0); MEAN CORPUSCULAR VOLUME 70.3 fL (81.0-99.0); MEAN PLATELET VOLUME 7.3 fl (7.4-10.4); MONOCYTES % 9.2 % (2.0-8.0); PLATELET 261 x1000/uL (130-400); RED BLOOD CELL COUNT 3.84 mill/uL (4.2-5.4); RED CELL DISTRIBUTION WIDTH 21.4 % (11.6-14.6)
[2021-04-17 18:47] LABS: CHLORIDE 102 mEq/L (98-107)
[2021-04-17] MEDS ORDERED: MORPHINE SULFATE 2 MG/ML CPJ (NOT FOR IM USE) IV STA (18:59)
[2021-04-18] VITALS (8 sets, daily range): BP systolic 89–143; BP diastolic 43–86
[2021-04-18] MEDS ORDERED: ACETAMINOPHEN 650MG/20.3ML UDC PO PRN (05:00)
[2021-04-18] MEDS ORDERED: IPRATROPIUM/ALBUTEROL 0.5-3(2.5)MG/3ML NEB HHN PRN (05:00)
[2021-04-18] MEDS ORDERED: DEXTROSE 50% WATER 50ML SYRINGE IV PRN (05:15)
[2021-04-18] MEDS: HYDROCODONE/ACETAMINOPHEN 10/325MG TABLET PO PRN ×3 (05:49→18:41)
[2021-04-18] MEDS ORDERED: FUROSEMIDE 40MG TABLET PO SCH (07:15)
[2021-04-18] MEDS: BLOOD SUGAR DIAGNOSTIC STRIP TEST SCH ×4 (07:30→21:00)
[2021-04-18] MEDS: IPRATROPIUM/ALBUTEROL 0.5-3(2.5)MG/3ML NEB HHN SCH ×5 (08:22→23:52)
[2021-04-18] MEDS: INSULIN LISPRO 100 UNITS/ML SUBCUT SCH ×4 (08:46→23:01)
[2021-04-18] MEDS ORDERED: ERGOCALCIFEROL 50000UNITS CAPSULE PO NR (09:00)
[2021-04-18] MEDS: DILTIAZEM HCL 180MG CAPSULE CD 24HR PO SCH (09:00)
[2021-04-18] MEDS: METHIMAZOLE 5MG TABLET PO SCH (09:00)
[2021-04-18] MEDS ORDERED: PREDNISONE 20MG TABLET PO SCH (09:00)
[2021-04-18] MEDS: ASCORBIC ACID 500 MG TABLET PO SCH (09:02)
[2021-04-18] MEDS: METOLAZONE 5MG TABLET PO SCH (09:02)
[2021-04-18] MEDS: FAMOTIDINE 20MG TABLET PO SCH ×2 (09:02→22:59)
[2021-04-18] MEDS: APIXABAN 5 MG TABLET PO SCH ×2 (09:02→17:27)
[2021-04-18] MEDS: MULTIVITAMINS,THER W-MINERALS TABLET PO SCH (09:02)
[2021-04-18] MEDS: FERROUS SULFATE 325MG TABLET PO SCH ×3 (09:03→17:27)
[2021-04-18] MEDS: LINAGLIPTIN 5MG TABLET PO SCH (09:03)
[2021-04-18] MEDS: POTASSIUM CHLORIDE 20MEQ TABLET SR PO SCH (09:03)
[2021-04-18] MEDS: METFORMIN HCL 500MG TABLET PO SCH (17:28)
[2021-04-18] MEDS: AZOPT 1% EACHEYE SCH (22:58)
[2021-04-18] MEDS: CITALOPRAM HYDROBROMIDE 10MG TABLET PO SCH (22:59)
[2021-04-18] MEDS: FUROSEMIDE 40MG TABLET PO SCH (22:59)
[2021-04-18] MEDS: LATANOPROST 0.005% OPHTH DROPS 2.5ML BOTHEYE SCH (23:00)
[2021-04-19] VITALS: BP 104/60
[2021-04-19] MEDS: HYDROCODONE/ACETAMINOPHEN 10/325MG TABLET PO PRN ×4 (01:20→21:04)
[2021-04-19] MEDS: IPRATROPIUM/ALBUTEROL 0.5-3(2.5)MG/3ML NEB HHN SCH ×5 (04:19→21:15)
[2021-04-19] MEDS ORDERED: *PATIENT'S OWN MEDICATION STORAGE XX SCH (04:45)
[2021-04-19] MEDS: BLOOD SUGAR DIAGNOSTIC STRIP TEST SCH ×4 (07:30→21:08)
[2021-04-19 08:00] VITALS: BP 114/81
[2021-04-19] MEDS: FAMOTIDINE 20MG TABLET PO SCH ×2 (08:19→21:02)
[2021-04-19] MEDS: MULTIVITAMINS,THER W-MINERALS TABLET PO SCH (08:19)
[2021-04-19] MEDS: METHIMAZOLE 5MG TABLET PO SCH (08:19)
[2021-04-19] MEDS: ASCORBIC ACID 500 MG TABLET PO SCH (08:19)
[2021-04-19] MEDS: PREDNISONE 20MG TABLET PO SCH (08:19)
[2021-04-19] MEDS: FERROUS SULFATE 325MG TABLET PO SCH ×3 (08:20→18:52)
[2021-04-19] MEDS: LINAGLIPTIN 5MG TABLET PO SCH (08:20)
[2021-04-19] MEDS: POTASSIUM CHLORIDE 20MEQ TABLET SR PO SCH (08:20)
[2021-04-19] MEDS: METOLAZONE 5MG TABLET PO SCH (08:20)
[2021-04-19] MEDS: APIXABAN 5 MG TABLET PO SCH ×2 (08:20→18:52)
[2021-04-19] MEDS: FUROSEMIDE 40MG TABLET PO SCH ×2 (08:20→21:02)
[2021-04-19] MEDS: DILTIAZEM HCL 180MG CAPSULE CD 24HR PO SCH (08:22)
[2021-04-19] MEDS: AMBRISENTAN 10 MG PO SCH (08:23)
[2021-04-19] MEDS: DALIRESP 500 MG PO SCH (08:23)
[2021-04-19] MEDS: INSULIN LISPRO 100 UNITS/ML SUBCUT SCH ×4 (08:43→21:07)
[2021-04-19] MEDS ORDERED: NON FORMULARY PATIENT HOME MED OP SCH ×2 (09:00→21:00)
[2021-04-19] MEDS ORDERED: NON FORMULARY PATIENT HOME MED PO SCH ×2 (09:00)
[2021-04-19 12:00] VITALS: BP 115/56
[2021-04-19] MEDS: POLYETHYLENE GLYCOL 3350 (17GM) 1 DOSE PACK PO SCH ×2 (17:00→18:53)
[2021-04-19] MEDS: METFORMIN HCL 500MG TABLET PO SCH (18:52)
[2021-04-19] MEDS: DOCUSATE SODIUM 100MG CAPSULE PO SCH (18:52)
[2021-04-19 20:00] VITALS: BP 107/52
[2021-04-19] MEDS: AZOPT 1% EACHEYE SCH (21:04)
[2021-04-19] MEDS: LATANOPROST 0.005% OPHTH DROPS 2.5ML BOTHEYE SCH (21:04)
[2021-04-19] MEDS: CITALOPRAM HYDROBROMIDE 10MG TABLET PO SCH (21:08)
[2021-04-19 22:00] VITALS: BP 124/66
[2021-04-20] VITALS: BP 104/50
[2021-04-20] MEDS: IPRATROPIUM/ALBUTEROL 0.5-3(2.5)MG/3ML NEB HHN SCH ×6 (00:45→20:25)
[2021-04-20 04:00] VITALS: BP 117/72
[2021-04-20] MEDS: HYDROCODONE/ACETAMINOPHEN 10/325MG TABLET PO PRN ×3 (05:41→18:06)
[2021-04-20] MEDS: BLOOD SUGAR DIAGNOSTIC STRIP TEST SCH ×4 (07:25→20:42)
[2021-04-20 07:48] LABS: TOTAL IRON BINDING CAPACITY 408 ug/dL (250-450)
[2021-04-20 08:00] VITALS: BP 96/45
[2021-04-20] MEDS: MULTIVITAMINS,THER W-MINERALS TABLET PO SCH (08:42)
[2021-04-20] MEDS: METHIMAZOLE 5MG TABLET PO SCH (08:46)
[2021-04-20] MEDS: PREDNISONE 20MG TABLET PO SCH (08:46)
[2021-04-20] MEDS: DOCUSATE SODIUM 100MG CAPSULE PO SCH ×2 (08:46→16:58)
[2021-04-20] MEDS: DILTIAZEM HCL 180MG CAPSULE CD 24HR PO SCH (08:46)
[2021-04-20] MEDS: METOLAZONE 5MG TABLET PO SCH (08:46)
[2021-04-20] MEDS: APIXABAN 5 MG TABLET PO SCH ×2 (08:46→16:58)
[2021-04-20] MEDS: FUROSEMIDE 40MG TABLET PO SCH ×2 (08:46→21:01)
[2021-04-20] MEDS: FERROUS SULFATE 325MG TABLET PO SCH ×3 (08:46→17:00)
[2021-04-20] MEDS: FAMOTIDINE 20MG TABLET PO SCH ×2 (08:47→20:39)
[2021-04-20] MEDS: LINAGLIPTIN 5MG TABLET PO SCH (08:47)
[2021-04-20] MEDS: POTASSIUM CHLORIDE 20MEQ TABLET SR PO SCH (08:47)
[2021-04-20] MEDS: ASCORBIC ACID 500 MG TABLET PO SCH (08:47)
[2021-04-20] MEDS: POLYETHYLENE GLYCOL 3350 (17GM) 1 DOSE PACK PO SCH ×2 (08:51→17:00)
[2021-04-20] MEDS: DALIRESP 500 MG PO SCH (08:52)
[2021-04-20] MEDS: AMBRISENTAN 10 MG PO SCH (08:53)
[2021-04-20] MEDS: INSULIN LISPRO 100 UNITS/ML SUBCUT SCH ×4 (08:58→20:58)
[2021-04-20 12:00] VITALS: BP 129/74
[2021-04-20] MEDS ORDERED: DEXTROSE 50% WATER 50ML SYRINGE IV PRN (13:15)
[2021-04-20 16:00] VITALS: BP 100/62
[2021-04-20] MEDS: METFORMIN HCL 500MG TABLET PO SCH (17:00)
[2021-04-20] MEDS ORDERED: BLOOD SUGAR DIAGNOSTIC STRIP TEST SCH (17:30)
[2021-04-20 20:00] VITALS: BP 102/55
[2021-04-20] MEDS: CITALOPRAM HYDROBROMIDE 10MG TABLET PO SCH (20:41)
[2021-04-20] MEDS: LATANOPROST 0.005% OPHTH DROPS 2.5ML BOTHEYE SCH (20:59)
[2021-04-20] MEDS: AZOPT 1% EACHEYE SCH (20:59)
[2021-04-21] VITALS (8 sets, daily range): BP systolic 102–149; BP diastolic 50–82
[2021-04-21] MEDS: HYDROCODONE/ACETAMINOPHEN 10/325MG TABLET PO PRN ×5 (00:05→21:50)
[2021-04-21] MEDS: ALPRAZOLAM 0.5 MG TABLET PO PRN ×2 (00:06→21:41)
[2021-04-21] MEDS: IPRATROPIUM/ALBUTEROL 0.5-3(2.5)MG/3ML NEB HHN SCH ×7 (00:31→20:54)
[2021-04-21 06:37] LABS: BASOPHILS % 0.5 % (0.0-2.0); EOSINOPHILS % 0.3 % (0.0-5.0); HEMATOCRIT. 26.7 % (36.0-48.0); HEMOGLOBIN. 8.4 g/dL (12.0-16.0); LYMPHOCYTES % 11.8 % (20.0-50.0); MEAN CORPUSCULAR HEMOGLOBIN 21.9 pg (28.0-32.0); MEAN CORPUSCULAR VOLUME 70.1 fL (81.0-99.0); MEAN PLATELET VOLUME 7.5 fl (7.4-10.4); MONOCYTES % 8.4 % (2.0-8.0); PLATELET 296 x1000/uL (130-400); RED BLOOD CELL COUNT 3.81 mill/uL (4.2-5.4); RED CELL DISTRIBUTION WIDTH 21.3 % (11.6-14.6)
[2021-04-21] MEDS: BLOOD SUGAR DIAGNOSTIC STRIP TEST SCH ×4 (08:13→21:43)
[2021-04-21] MEDS: METHIMAZOLE 5MG TABLET PO SCH (08:28)
[2021-04-21] MEDS: FERROUS SULFATE 325MG TABLET PO SCH ×3 (08:28→18:08)
[2021-04-21] MEDS: DILTIAZEM HCL 180MG CAPSULE CD 24HR PO SCH (08:28)
[2021-04-21] MEDS: APIXABAN 5 MG TABLET PO SCH ×2 (08:28→18:09)
[2021-04-21] MEDS: LINAGLIPTIN 5MG TABLET PO SCH (08:28)
[2021-04-21] MEDS: FUROSEMIDE 40MG TABLET PO SCH ×2 (08:29→21:43)
[2021-04-21] MEDS: FAMOTIDINE 20MG TABLET PO SCH ×2 (08:29→21:43)
[2021-04-21] MEDS: METOLAZONE 5MG TABLET PO SCH (08:29)
[2021-04-21] MEDS: MULTIVITAMINS,THER W-MINERALS TABLET PO SCH (08:29)
[2021-04-21] MEDS: PREDNISONE 20MG TABLET PO SCH (08:29)
[2021-04-21] MEDS: POTASSIUM CHLORIDE 20MEQ TABLET SR PO SCH (08:30)
[2021-04-21] MEDS: AMBRISENTAN 10 MG PO SCH (08:30)
[2021-04-21] MEDS: DOCUSATE SODIUM 100MG CAPSULE PO SCH ×2 (08:30→18:08)
[2021-04-21] MEDS: POLYETHYLENE GLYCOL 3350 (17GM) 1 DOSE PACK PO SCH ×2 (08:30→16:42)
[2021-04-21] MEDS: DALIRESP 500 MG PO SCH (08:30)
[2021-04-21] MEDS: ASCORBIC ACID 500 MG TABLET PO SCH (08:30)
[2021-04-21] MEDS: INSULIN LISPRO 100 UNITS/ML SUBCUT SCH ×4 (08:35→21:38)
[2021-04-21] MEDS ORDERED: NALOXONE HCL 0.4MG/ML VIAL IV PRN (16:45)
[2021-04-21 17:07] LABS: BG BASE EXCESS 5.1 mmol/L (-2.0-2.0); BG CARBOXYHEMOGLOBIN 0.6 % (0.5-1.5); BG DEOXYHEMOGLOBIN 1.8 % (0.0-5.0); BG FRACTION INSPIRED OXYGEN 30; BG HCO3 ACT 29.5 mmol/L (22.0-26.0); BG METHEMOGLOBIN 0.3 % (0.0-1.5); BG OXYGEN SATURATION 98.2 % (92.0-98.5); BG OXYHEMOGLOBIN 97.3 % (94.0-97.0); BG PCO2 42.8 mmHg (35.0-45.0); BG PH 7.456 (7.350-7.450); BG PO2 119.5 mmHg (75.0-100.0); BG SAMPLE SITE LEFT RADIAL; BG TOTAL HEMOGLOBIN 9.1 g/dL (12.0-18.0); BG TOTAL RESPIRATORY RATE 17 b/min; BG VENT MODE MASK - CPAP
[2021-04-21] MEDS: METFORMIN HCL 500MG TABLET PO SCH (18:09)
[2021-04-21] MEDS: AZOPT 1% EACHEYE SCH (21:42)
[2021-04-21] MEDS: LATANOPROST 0.005% OPHTH DROPS 2.5ML BOTHEYE SCH (21:42)
[2021-04-21] MEDS: CITALOPRAM HYDROBROMIDE 10MG TABLET PO SCH (21:43)
[2021-04-22] VITALS (7 sets, daily range): BP systolic 99–151; BP diastolic 45–94
[2021-04-22] MEDS: IPRATROPIUM/ALBUTEROL 0.5-3(2.5)MG/3ML NEB HHN SCH ×5 (04:45→20:16)
[2021-04-22] MEDS: HYDROCODONE/ACETAMINOPHEN 10/325MG TABLET PO PRN ×5 (05:22→23:04)
[2021-04-22 07:33] LABS: BASOPHILS % 0.2 % (0.0-2.0); EOSINOPHILS % 0.2 % (0.0-5.0); HEMATOCRIT. 26.3 % (36.0-48.0); HEMOGLOBIN. 8.2 g/dL (12.0-16.0); LYMPHOCYTES % 14.2 % (20.0-50.0); MEAN CORPUSCULAR VOLUME 70.3 fL (81.0-99.0); MEAN PLATELET VOLUME 7.3 fl (7.4-10.4); MONOCYTES % 8.2 % (2.0-8.0); NEUTROPHILS % 77.2 % (40.0-76.0); PLATELET 274 x1000/uL (130-400); RED BLOOD CELL COUNT 3.73 mill/uL (4.2-5.4); RED CELL DISTRIBUTION WIDTH 21.8 % (11.6-14.6)
[2021-04-22] MEDS: BLOOD SUGAR DIAGNOSTIC STRIP TEST SCH ×4 (08:04→21:00)
[2021-04-22] MEDS: POLYETHYLENE GLYCOL 3350 (17GM) 1 DOSE PACK PO SCH ×2 (09:00→17:00)
[2021-04-22] MEDS: FERROUS SULFATE 325MG TABLET PO SCH ×3 (09:50→18:12)
[2021-04-22] MEDS: INSULIN LISPRO 100 UNITS/ML SUBCUT SCH ×4 (09:50→20:59)
[2021-04-22] MEDS: ASCORBIC ACID 500 MG TABLET PO SCH (09:51)
[2021-04-22] MEDS: PREDNISONE 20MG TABLET PO SCH (09:52)
[2021-04-22] MEDS: FAMOTIDINE 20MG TABLET PO SCH ×2 (09:52→20:44)
[2021-04-22] MEDS: DILTIAZEM HCL 180MG CAPSULE CD 24HR PO SCH (09:53)
[2021-04-22] MEDS: MULTIVITAMINS,THER W-MINERALS TABLET PO SCH (09:54)
[2021-04-22] MEDS: DOCUSATE SODIUM 100MG CAPSULE PO SCH ×2 (09:54→18:12)
[2021-04-22] MEDS: METHIMAZOLE 5MG TABLET PO SCH (09:54)
[2021-04-22] MEDS: APIXABAN 5 MG TABLET PO SCH ×2 (09:54→18:12)
[2021-04-22] MEDS: FUROSEMIDE 40MG TABLET PO SCH ×2 (09:54→20:43)
[2021-04-22] MEDS: POTASSIUM CHLORIDE 20MEQ TABLET SR PO SCH (09:54)
[2021-04-22] MEDS: DALIRESP 500 MG PO SCH (09:55)
[2021-04-22] MEDS: AMBRISENTAN 10 MG PO SCH (09:55)
[2021-04-22] MEDS: LINAGLIPTIN 5MG TABLET PO SCH (10:05)
[2021-04-22] MEDS: METOLAZONE 5MG TABLET PO SCH (10:05)
[2021-04-22] MEDS: METFORMIN HCL 500MG TABLET PO SCH (18:12)
[2021-04-22] MEDS: CITALOPRAM HYDROBROMIDE 10MG TABLET PO SCH (20:43)
[2021-04-22] MEDS: LATANOPROST 0.005% OPHTH DROPS 2.5ML BOTHEYE SCH (20:46)
[2021-04-22] MEDS: AZOPT 1% EACHEYE SCH (20:46)
[2021-04-22] MEDS: ALPRAZOLAM 0.5 MG TABLET PO PRN (20:59)
[2021-04-23] VITALS (8 sets, daily range): BP systolic 104–128; BP diastolic 51–71
[2021-04-23] MEDS: IPRATROPIUM/ALBUTEROL 0.5-3(2.5)MG/3ML NEB HHN SCH ×6 (00:25→20:28)
[2021-04-23] MEDS: HYDROCODONE/ACETAMINOPHEN 10/325MG TABLET PO PRN ×4 (06:23→21:04)
[2021-04-23] MEDS ORDERED: LIDOCAINE HCL 1% 30ML VIAL (10MG/ML) ONE (07:49)
[2021-04-23] MEDS: INSULIN LISPRO 100 UNITS/ML SUBCUT SCH ×4 (08:00→21:22)
[2021-04-23] MEDS: LINAGLIPTIN 5MG TABLET PO SCH (09:00)
[2021-04-23] MEDS: POLYETHYLENE GLYCOL 3350 (17GM) 1 DOSE PACK PO SCH ×3 (09:00→17:00)
[2021-04-23] MEDS: BLOOD SUGAR DIAGNOSTIC STRIP TEST SCH ×3 (11:16→21:00)
[2021-04-23] MEDS: FAMOTIDINE 20MG TABLET PO SCH ×2 (11:43→21:04)
[2021-04-23] MEDS: DILTIAZEM HCL 180MG CAPSULE CD 24HR PO SCH (11:43)
[2021-04-23] MEDS: PREDNISONE 20MG TABLET PO SCH (11:43)
[2021-04-23] MEDS: FUROSEMIDE 40MG TABLET PO SCH ×2 (11:44→21:04)
[2021-04-23] MEDS: DOCUSATE SODIUM 100MG CAPSULE PO SCH ×2 (11:44→16:21)
[2021-04-23] MEDS: METOLAZONE 5MG TABLET PO SCH (11:44)
[2021-04-23] MEDS: FERROUS SULFATE 325MG TABLET PO SCH ×3 (11:44→17:47)
[2021-04-23] MEDS: ASCORBIC ACID 500 MG TABLET PO SCH (11:44)
[2021-04-23] MEDS: APIXABAN 5 MG TABLET PO SCH ×2 (11:44→16:20)
[2021-04-23] MEDS: MULTIVITAMINS,THER W-MINERALS TABLET PO SCH (11:44)
[2021-04-23] MEDS: POTASSIUM CHLORIDE 20MEQ TABLET SR PO SCH (11:44)
[2021-04-23] MEDS: METHIMAZOLE 5MG TABLET PO SCH (11:46)
[2021-04-23] MEDS: DALIRESP 500 MG PO SCH (11:48)
[2021-04-23] MEDS: AMBRISENTAN 10 MG PO SCH (11:49)
[2021-04-23] MEDS: METFORMIN HCL 500MG TABLET PO SCH (17:47)
[2021-04-23] MEDS: CITALOPRAM HYDROBROMIDE 10MG TABLET PO SCH (21:04)
[2021-04-23] MEDS: LATANOPROST 0.005% OPHTH DROPS 2.5ML BOTHEYE SCH (21:06)
[2021-04-23] MEDS: AZOPT 1% EACHEYE SCH (21:06)
[2021-04-24] VITALS: BP 123/67
[2021-04-24] MEDS: IPRATROPIUM/ALBUTEROL 0.5-3(2.5)MG/3ML NEB HHN SCH ×4 (00:10→12:35)
[2021-04-24 04:00] VITALS: BP 112/65
[2021-04-24] MEDS: HYDROCODONE/ACETAMINOPHEN 10/325MG TABLET PO PRN ×3 (04:47→14:05)
[2021-04-24] MEDS: BLOOD SUGAR DIAGNOSTIC STRIP TEST SCH ×3 (07:20→16:59)
[2021-04-24 08:00] VITALS: BP 130/75
[2021-04-24] MEDS: FUROSEMIDE 40MG TABLET PO SCH (08:28)
[2021-04-24] MEDS: DOCUSATE SODIUM 100MG CAPSULE PO SCH ×2 (08:28→16:58)
[2021-04-24] MEDS: PREDNISONE 20MG TABLET PO SCH (08:28)
[2021-04-24] MEDS: FERROUS SULFATE 325MG TABLET PO SCH ×2 (08:28→12:17)
[2021-04-24] MEDS: POLYETHYLENE GLYCOL 3350 (17GM) 1 DOSE PACK PO SCH ×3 (08:28→16:59)
[2021-04-24] MEDS: METOLAZONE 5MG TABLET PO SCH (08:28)
[2021-04-24] MEDS: FAMOTIDINE 20MG TABLET PO SCH (08:28)
[2021-04-24] MEDS: METHIMAZOLE 5MG TABLET PO SCH (08:28)
[2021-04-24] MEDS: POTASSIUM CHLORIDE 20MEQ TABLET SR PO SCH (08:28)
[2021-04-24] MEDS: ASCORBIC ACID 500 MG TABLET PO SCH (08:29)
[2021-04-24] MEDS: APIXABAN 5 MG TABLET PO SCH ×2 (08:29→16:59)
[2021-04-24] MEDS: DILTIAZEM HCL 180MG CAPSULE CD 24HR PO SCH (08:29)
[2021-04-24] MEDS: LINAGLIPTIN 5MG TABLET PO SCH (08:29)
[2021-04-24] MEDS: INSULIN LISPRO 100 UNITS/ML SUBCUT SCH ×2 (08:30→12:17)
[2021-04-24] MEDS: AMBRISENTAN 10 MG PO SCH (08:35)
[2021-04-24] MEDS: MULTIVITAMINS,THER W-MINERALS TABLET PO SCH (08:35)
[2021-04-24] MEDS: DALIRESP 500 MG PO SCH (08:36)
[2021-04-24 12:00] VITALS: BP 111/64
[2021-04-24 15:24] VITALS: BP 135/68
[2021-04-24 15:58] VITALS: BP 135/58
== END 2021-04-24 18:35 | disposition home or self-care (01) | DRG 189 ==
LOC: ER 17:11 → 5EST 20:48 → EDBEDREQ 20:51 → EDBEDREQTM 20:51 → ENRESERV 04-18 02:00
PROVIDERS: ADMIT Internal Medicine Pulmonary Disease; ATTEND Internal Medicine Pulmonary Disease
PROC: 5A09357 Assistance with Respiratory Ventilation, Less than 24 Consecutive Hours, Continuous Positive Airway Pressure (ICD-10-PCS; principal; 2021-04-18)
PROC: 5A09357 Assistance with Respiratory Ventilation, Less than 24 Consecutive Hours, Continuous Positive Airway Pressure (ICD-10-PCS; 2021-04-20)
PROC: 5A09357 Assistance with Respiratory Ventilation, Less than 24 Consecutive Hours, Continuous Positive Airway Pressure (ICD-10-PCS; 2021-04-21)
PROC: 5A09357 Assistance with Respiratory Ventilation, Less than 24 Consecutive Hours, Continuous Positive Airway Pressure (ICD-10-PCS; 2021-04-22)
PROC: 5A09357 Assistance with Respiratory Ventilation, Less than 24 Consecutive Hours, Continuous Positive Airway Pressure (ICD-10-PCS; 2021-04-23)
PROC: 02HV33Z Insertion of Infusion Device into Superior Vena Cava, Percutaneous Approach (ICD-10-PCS; 2021-04-23)
PROC: B548ZZA Ultrasonography of Superior Vena Cava, Guidance (ICD-10-PCS; 2021-04-23)
PROC: B5181ZA Fluoroscopy of Superior Vena Cava using Low Osmolar Contrast, Guidance (ICD-10-PCS; 2021-04-23)
PROC: 5A09357 Assistance with Respiratory Ventilation, Less than 24 Consecutive Hours, Continuous Positive Airway Pressure (ICD-10-PCS; 2021-04-24)
DX: J96.21 Acute and chronic respiratory failure with hypoxia (principal); J44.1 Chronic obstructive pulmonary disease with (acute) exacerbation; I48.20 Chronic atrial fibrillation, unspecified; E66.2 Morbid (severe) obesity with alveolar hypoventilation; I48.92 Unspecified atrial flutter; Z68.41 Body mass index [BMI] 40.0-44.9, adult; J96.22 Acute and chronic respiratory failure with hypercapnia; K21.9 Gastro-esophageal reflux disease without esophagitis; I50.9 Heart failure, unspecified; I48.0 Paroxysmal atrial fibrillation; D12.6 Benign neoplasm of colon, unspecified; D50.9 Iron deficiency anemia, unspecified; E11.9 Type 2 diabetes mellitus without complications; F41.9 Anxiety disorder, unspecified; G89.29 Other chronic pain; E05.80 Other thyrotoxicosis without thyrotoxic crisis or storm; E78.5 Hyperlipidemia, unspecified; I11.0 Hypertensive heart disease with heart failure; Z20.822 Contact with and (suspected) exposure to COVID-19; Z96.1 Presence of intraocular lens; I27.21 Secondary pulmonary arterial hypertension; I27.81 Cor pulmonale (chronic); I35.0 Nonrheumatic aortic (valve) stenosis; M54.50 Low back pain, unspecified; Z79.52 Long term (current) use of systemic steroids; Z82.49 Family history of ischemic heart disease and other diseases of the circulatory system; Z80.1 Family history of malignant neoplasm of trachea, bronchus and lung; Z83.3 Family history of diabetes mellitus; Z90.710 Acquired absence of both cervix and uterus; Z79.01 Long term (current) use of anticoagulants; Z95.0 Presence of cardiac pacemaker; Z98.41 Cataract extraction status, right eye; Z98.42 Cataract extraction status, left eye; Z99.81 Dependence on supplemental oxygen; Z79.899 Other long term (current) drug therapy; Z87.891 Personal history of nicotine dependence
CPT/HCPCS: 36415; 36573; 36600; 71045; 71275; 80048; 80053; 82375; 82805; 82962; 83036; 83540; 83550; 83735; 83880; 84100; 84484; 85025; 85379; 87426; 93005; 93306; 94640; 94660; 99285; C1725; J1815; J2270; J3490; J7512

== ENCOUNTER 2021-11-13 17:39 | Inpatient (IN) | payer BC, MEDICAID ==
[~2021-11-13] VITALS: Ht 162.6 cm; Wt 105.3 kg
[~2021-11-13 17:39] MED LIST changes: -HYDR-4009 MT; +INSU100I28 SQ
[2021-11-13] MEDS ORDERED: MORPHINE SULFATE 4 MG/ML CPJ (NOT FOR IM USE) IV NR (19:14)
[2021-11-13] MEDS ORDERED: MORPHINE SULFATE 4 MG/ML CPJ (NOT FOR IM USE) IV STA (19:14)
[2021-11-13] MEDS ORDERED: ONDANSETRON HCL 4MG/2ML INJ IV NR (19:14)
[2021-11-13] MEDS ORDERED: ONDANSETRON HCL 4MG/2ML INJ IV STA (19:14)
[2021-11-13] MEDS ORDERED: INSULIN REGULAR (HUMULIN R) 300UNITS/3ML VIAL IV NR (19:30)
[2021-11-13] MEDS ORDERED: INSULIN REGULAR (HUMULIN R) UD 100 UNITS/ML SYR SUBCUT ONE (19:30)
[2021-11-13 19:46] LABS: BASOPHILS % 0.1 % (0.0-2.0); HEMATOCRIT. 25.5 % (36.0-48.0); HEMOGLOBIN. 7.3 g/dL (12.0-16.0); LYMPHOCYTES % 14.5 % (20.0-50.0); MEAN CORPUSCULAR HEMOGLOBIN 18.8 pg (28.0-32.0); MEAN CORPUSCULAR VOLUME 65.7 fL (81.0-99.0); MEAN PLATELET VOLUME 8.5 fl (7.4-10.4); MONOCYTES % 9.9 % (2.0-8.0); NEUTROPHILS % 75.5 % (40.0-76.0); PLATELET 184 x1000/uL (130-400); RED BLOOD CELL COUNT 3.88 mill/uL (4.2-5.4); RED CELL DISTRIBUTION WIDTH 23.2 % (11.6-14.6)
[2021-11-13 19:56] LABS: CHLORIDE 103 mEq/L (98-107)
[2021-11-13 19:57] LABS: D-DIMER 0.44 mg/L FEU (<0.50); PARTIAL THROMBOPLASTIN TIME < 21.0 sec (23.4-31.0); PROTHROMBIN TIME 10.3 sec (9.6-11.0)
[2021-11-13 20:05] LABS: BETA HYDROXYBUTYRATE 0.1 mMol/L (0.0-0.3)
[2021-11-13 20:21] LABS: PLATELET ESTIMATE NORMAL
[2021-11-13] MEDS ORDERED: INSULIN REGULAR (HUMULIN R) 300UNITS/3ML VIAL SUBCUT NR (20:24)
[2021-11-13 22:00] VITALS: BP 165/86
[2021-11-13 22:08] LABS: BG BASE EXCESS -1.8 mmol/L (-2.0-2.0); BG CARBOXYHEMOGLOBIN 0.8 % (0.5-1.5); BG DEOXYHEMOGLOBIN 1.3 % (0.0-5.0); BG FRACTION INSPIRED OXYGEN 36; BG HCO3 ACT 22.4 mmol/L (22.0-26.0); BG METHEMOGLOBIN 0.5 % (0.0-1.5); BG OXYGEN SATURATION 98.7 % (92.0-98.5); BG OXYHEMOGLOBIN 97.4 % (94.0-97.0); BG PCO2 34.9 mmHg (35.0-45.0); BG PH 7.425 (7.350-7.450); BG PO2 152.4 mmHg (75.0-100.0); BG SAMPLE SITE RIGHT BRACHIAL; BG TOTAL HEMOGLOBIN 7.1 g/dL (12.0-18.0); BG VENT MODE NASAL CANNULA
[2021-11-14] VITALS (7 sets, daily range): BP systolic 119–165; BP diastolic 57–86
[2021-11-14] MEDS ORDERED: DEXTROSE 50% WATER 50ML SYRINGE IV PRN (02:30)
[2021-11-14] MEDS ORDERED: DIPHENHYDRAMINE 50MG/ML VIAL IV PRN (02:30)
[2021-11-14] MEDS ORDERED: ACETAMINOPHEN 325MG TABLET PO PRN ×2 (02:30)
[2021-11-14] MEDS ORDERED: ONDANSETRON HCL 4MG/2ML INJ IV PRN (02:30)
[2021-11-14] MEDS ORDERED: IPRATROPIUM/ALBUTEROL 0.5-3(2.5)MG/3ML NEB HHN PRN (02:30)
[2021-11-14] MEDS ORDERED: MAGNESIUM/ALUMINUM HYDROXIDE/SIMETHICONE 30ML UDC PO PRN (02:30)
[2021-11-14] MEDS ORDERED: ZOLPIDEM TARTRATE 5MG TABLET PO PRN (02:30)
[2021-11-14] MEDS: HYDROCODONE/APAP 7.5/325MG 1 TAB TABLET PO PRN ×4 (06:22→21:26)
[2021-11-14] MEDS: PANTOPRAZOLE 40MG DR TABLET PO SCH ×2 (06:22→21:12)
[2021-11-14] MEDS: SODIUM CHLORIDE 0.9% INJ 3ML FLUSH IVF SCH ×3 (06:23→21:15)
[2021-11-14] MEDS: GLIMEPIRIDE 2MG TABLET PO SCH (07:10)
[2021-11-14] MEDS: BLOOD SUGAR DIAGNOSTIC STRIP TEST SCH ×4 (07:45→20:51)
[2021-11-14] MEDS: INSULIN LISPRO 100 UNITS/ML SUBCUT SCH ×4 (09:01→21:15)
[2021-11-14] MEDS: LINAGLIPTIN 5MG TABLET PO SCH (09:01)
[2021-11-14] MEDS: APIXABAN 5 MG TABLET PO SCH ×2 (09:01→17:18)
[2021-11-14] MEDS: PREDNISONE 20MG TABLET PO SCH (09:01)
[2021-11-14] MEDS ORDERED: INSLIS SUBCUT (18:33)
[2021-11-14] MEDS ORDERED: FLUT1BLS3 INH (18:33)
[2021-11-14] MEDS ORDERED: ASCO-339 PO (18:34)
[2021-11-14] MEDS: INSULIN GLARGINE 100 UNITS/ML SUBCUT SCH (21:14)
[2021-11-15] VITALS: BP 119/58
[2021-11-15 04:00] VITALS: BP 132/87
[2021-11-15] MEDS: HYDROCODONE/APAP 7.5/325MG 1 TAB TABLET PO PRN ×4 (04:57→17:21)
[2021-11-15] MEDS: BLOOD SUGAR DIAGNOSTIC STRIP TEST SCH ×4 (06:08→20:02)
[2021-11-15] MEDS: INSULIN LISPRO 100 UNITS/ML SUBCUT SCH ×4 (06:08→21:25)
[2021-11-15] MEDS: SODIUM CHLORIDE 0.9% INJ 3ML FLUSH IVF SCH ×3 (06:26→21:26)
[2021-11-15] MEDS: GLIMEPIRIDE 2MG TABLET PO SCH (06:26)
[2021-11-15] MEDS: PANTOPRAZOLE 40MG DR TABLET PO SCH ×2 (06:26→21:23)
[2021-11-15 08:00] VITALS: BP 130/90
[2021-11-15] MEDS: LINAGLIPTIN 5MG TABLET PO SCH (08:25)
[2021-11-15] MEDS: APIXABAN 5 MG TABLET PO SCH ×2 (08:25→17:20)
[2021-11-15] MEDS: PREDNISONE 20MG TABLET PO SCH (08:25)
[2021-11-15 12:00] VITALS: BP 128/77
[2021-11-15 16:00] VITALS: BP 118/61
[2021-11-15] MEDS ORDERED: NALOXONE HCL 0.4MG/ML VIAL IV PRN (18:15)
[2021-11-15 20:00] VITALS: BP 127/71
[2021-11-15] MEDS: INSULIN GLARGINE 100 UNITS/ML SUBCUT SCH (21:26)
[2021-11-16] VITALS (10 sets, daily range): BP systolic 103–146; BP diastolic 42–81
[2021-11-16] MEDS: HYDROCODONE/APAP 7.5/325MG 1 TAB TABLET PO PRN ×5 (00:40→18:19)
[2021-11-16] MEDS: BLOOD SUGAR DIAGNOSTIC STRIP TEST SCH ×4 (05:13→20:00)
[2021-11-16] MEDS: INSULIN LISPRO 100 UNITS/ML SUBCUT SCH ×4 (05:49→21:08)
[2021-11-16] MEDS: SODIUM CHLORIDE 0.9% INJ 3ML FLUSH IVF SCH ×3 (06:19→21:15)
[2021-11-16] MEDS: PANTOPRAZOLE 40MG DR TABLET PO SCH ×2 (06:19→21:01)
[2021-11-16 07:54] LABS: HEMATOCRIT. 22.2 % (36.0-48.0); MEAN CORPUSCULAR VOLUME 64.4 fL (81.0-99.0); MEAN PLATELET VOLUME 8.5 fl (7.4-10.4); PLATELET 204 x1000/uL (130-400); RED BLOOD CELL COUNT 3.45 mill/uL (4.2-5.4)
[2021-11-16] MEDS: GLIMEPIRIDE 2MG TABLET PO SCH (07:55)
[2021-11-16] MEDS: LINAGLIPTIN 5MG TABLET PO SCH (07:55)
[2021-11-16] MEDS: PREDNISONE 20MG TABLET PO SCH (07:55)
[2021-11-16 08:02] LABS: CHLORIDE 106 mEq/L (98-107)
[2021-11-16 08:08] LABS: HEMOGLOBIN. 6.6 g/dL (12.0-16.0)
[2021-11-16 08:17] LABS: PHOSPHORUS 2.7 mg/dL (2.5-4.9); TOTAL IRON BINDING CAPACITY 331 ug/dL (250-450)
[2021-11-16] MEDS: IRON SUCROSE COMPLEX 100 MG/5 ML ML IV SCH (10:07)
[2021-11-16 11:46] LABS: NUCLEATED RED BLOOD CELLS 1 /100 WBC; PLATELET ESTIMATE NORMAL
[2021-11-16] MEDS: FUROSEMIDE 40MG/4ML VIAL IVP SCH (17:51)
[2021-11-16] MEDS ORDERED: POTASSIUM CHLORIDE 20MEQ TABLET SR PO NR (18:00)
[2021-11-16 20:44] LABS: HEMATOCRIT 27.1 % (36.0-48.0); HEMOGLOBIN 8.2 g/dL (12.0-16.0)
[2021-11-16 20:59] LABS: INR 0.9
[2021-11-16 21:04] LABS: T4 FREE 0.87 ng/dL (0.76-1.46)
[2021-11-16] MEDS: INSULIN GLARGINE 100 UNITS/ML SUBCUT SCH (21:12)
[2021-11-16] MEDS: PANTOPRAZOLE SODIUM 40 MG/VIAL IV SCH (22:00)
[2021-11-17] VITALS: BP_SYST 109; BP_SYST 120; BP_DIAS 64; BP_DIAS 67
[2021-11-17] MEDS: HYDROCODONE/APAP 7.5/325MG 1 TAB TABLET PO PRN ×4 (00:12→19:42)
[2021-11-17 04:00] VITALS: BP 117/64
[2021-11-17] MEDS: BLOOD SUGAR DIAGNOSTIC STRIP TEST SCH ×4 (05:14→19:42)
[2021-11-17] MEDS: INSULIN LISPRO 100 UNITS/ML SUBCUT SCH ×4 (05:52→21:16)
[2021-11-17] MEDS: GLIMEPIRIDE 2MG TABLET PO SCH (06:01)
[2021-11-17] MEDS: SODIUM CHLORIDE 0.9% INJ 3ML FLUSH IVF SCH ×3 (06:01→21:16)
[2021-11-17 06:53] LABS: HEMATOCRIT. 24.8 % (36.0-48.0); HEMOGLOBIN. 7.5 g/dL (12.0-16.0); MEAN CORPUSCULAR HEMOGLOBIN 20.2 pg (28.0-32.0); MEAN CORPUSCULAR VOLUME 66.9 fL (81.0-99.0); MEAN PLATELET VOLUME 8.5 fl (7.4-10.4); PLATELET 228 x1000/uL (130-400); RED BLOOD CELL COUNT 3.71 mill/uL (4.2-5.4); RED CELL DISTRIBUTION WIDTH 23.6 % (11.6-14.6)
[2021-11-17 06:59] LABS: CHLORIDE 105 mEq/L (98-107)
[2021-11-17 08:00] VITALS: BP 122/67
[2021-11-17] MEDS: IRON SUCROSE COMPLEX 100 MG/5 ML ML IV SCH (09:10)
[2021-11-17] MEDS: LINAGLIPTIN 5MG TABLET PO SCH (09:10)
[2021-11-17] MEDS: FUROSEMIDE 40MG/4ML VIAL IVP SCH (09:11)
[2021-11-17] MEDS: PANTOPRAZOLE SODIUM 40 MG/VIAL IV SCH (09:11)
[2021-11-17] MEDS: PREDNISONE 10MG TABLET PO SCH (09:11)
[2021-11-17 10:22] LABS: PLATELET ESTIMATE NORMAL
[2021-11-17 12:00] VITALS: BP 115/62
[2021-11-17] MEDS ORDERED: PRED10TA MT ×2 (14:26)
[2021-11-17 16:00] VITALS: BP 112/61
[2021-11-17 20:00] VITALS: BP 115/62
[2021-11-17] MEDS: INSULIN GLARGINE 100 UNITS/ML SUBCUT SCH (21:15)
[2021-11-18] VITALS: BP 106/53
[2021-11-18 04:00] VITALS: BP 117/81
[2021-11-18] MEDS: BLOOD SUGAR DIAGNOSTIC STRIP TEST SCH ×4 (06:03→21:13)
[2021-11-18] MEDS: SODIUM CHLORIDE 0.9% INJ 3ML FLUSH IVF SCH ×3 (06:03→21:13)
[2021-11-18] MEDS: INSULIN LISPRO 100 UNITS/ML SUBCUT SCH ×4 (06:03→21:12)
[2021-11-18] MEDS: HYDROCODONE/APAP 7.5/325MG 1 TAB TABLET PO PRN ×5 (06:03→22:32)
[2021-11-18 06:44] LABS: HEMOGLOBIN. 8.4 g/dL (12.0-16.0); MEAN CORPUSCULAR VOLUME 67.1 fL (81.0-99.0); MEAN PLATELET VOLUME 8.6 fl (7.4-10.4); PLATELET 290 x1000/uL (130-400); RED BLOOD CELL COUNT 4.18 mill/uL (4.2-5.4); RED CELL DISTRIBUTION WIDTH 24.9 % (11.6-14.6)
[2021-11-18 06:55] LABS: CHLORIDE 103 mEq/L (98-107)
[2021-11-18 08:00] VITALS: BP 131/64
[2021-11-18] MEDS: FUROSEMIDE 40MG/4ML VIAL IVP SCH (08:57)
[2021-11-18] MEDS: PANTOPRAZOLE SODIUM 40 MG/VIAL IV SCH (08:57)
[2021-11-18] MEDS: IRON SUCROSE COMPLEX 100 MG/5 ML ML IV SCH (08:57)
[2021-11-18] MEDS: LINAGLIPTIN 5MG TABLET PO SCH (08:58)
[2021-11-18] MEDS: PREDNISONE 10MG TABLET PO SCH (08:58)
[2021-11-18] MEDS: GLIMEPIRIDE 2MG TABLET PO SCH (08:58)
[2021-11-18] MEDS ORDERED: POTASSIUM CHLORIDE 20MEQ TABLET SR PO SCH (11:30)
[2021-11-18 12:00] VITALS: BP 129/60
[2021-11-18 15:28] LABS: PLATELET ESTIMATE NORMAL
[2021-11-18 16:00] VITALS: BP 110/57
[2021-11-18 16:20] LABS: HEMATOCRIT 27.4 % (36.0-48.0); HEMOGLOBIN 8.2 g/dL (12.0-16.0)
[2021-11-18] MEDS: ASCORBIC ACID 500 MG TABLET PO SCH (17:18)
[2021-11-18] MEDS: FERROUS SULFATE 325MG TABLET PO SCH (17:18)
[2021-11-18 19:38] LABS: FOLIC ACID (FOLATE) SERUM 9.1 ng/mL (>5.38)
[2021-11-18 20:00] VITALS: BP 114/50
[2021-11-18] MEDS: INSULIN GLARGINE 100 UNITS/ML SUBCUT SCH (21:12)
[2021-11-19] VITALS: BP 136/85
[2021-11-19 04:00] VITALS: BP 124/72
[2021-11-19] MEDS: SODIUM CHLORIDE 0.9% INJ 3ML FLUSH IVF SCH ×2 (05:50→13:06)
[2021-11-19] MEDS: HYDROCODONE/APAP 7.5/325MG 1 TAB TABLET PO PRN ×4 (05:50→19:59)
[2021-11-19] MEDS: BLOOD SUGAR DIAGNOSTIC STRIP TEST SCH ×4 (05:50→21:22)
[2021-11-19] MEDS: INSULIN LISPRO 100 UNITS/ML SUBCUT SCH ×4 (05:50→21:09)
[2021-11-19 07:27] LABS: CHLORIDE 102 mEq/L (98-107)
[2021-11-19 07:29] LABS: HEMATOCRIT. 29.7 % (36.0-48.0); HEMOGLOBIN. 8.8 g/dL (12.0-16.0); MEAN CORPUSCULAR HEMOGLOBIN 20.2 pg (28.0-32.0); MEAN CORPUSCULAR VOLUME 68.5 fL (81.0-99.0); MEAN PLATELET VOLUME 8.5 fl (7.4-10.4); PLATELET 353 x1000/uL (130-400); RED BLOOD CELL COUNT 4.34 mill/uL (4.2-5.4)
[2021-11-19 08:00] VITALS: BP 138/80
[2021-11-19] MEDS: GLIMEPIRIDE 2MG TABLET PO SCH (08:55)
[2021-11-19] MEDS: PREDNISONE 10MG TABLET PO SCH (08:55)
[2021-11-19] MEDS: ASCORBIC ACID 500 MG TABLET PO SCH ×2 (08:55→18:19)
[2021-11-19] MEDS: FERROUS SULFATE 325MG TABLET PO SCH ×3 (08:55→18:19)
[2021-11-19] MEDS: LINAGLIPTIN 5MG TABLET PO SCH (08:55)
[2021-11-19] MEDS: FUROSEMIDE 40MG/4ML VIAL IVP SCH (08:55)
[2021-11-19] MEDS: PANTOPRAZOLE SODIUM 40 MG/VIAL IV SCH (08:55)
[2021-11-19] MEDS ORDERED: CEFTRIAXONE 1 G PREMIX 50 ML IV SCH (10:45)
[2021-11-19] MEDS: APIXABAN 5 MG TABLET PO SCH ×2 (11:18→18:19)
[2021-11-19 12:00] VITALS: BP 132/89
[2021-11-19] MEDS ORDERED: CEFTRIAXONE 1,000 MG in DEXTROSE 5% WATER 50 ML IV SCH (12:00)
[2021-11-19 12:33] LABS: PLATELET ESTIMATE NORMAL
[2021-11-19] MEDS ORDERED: CYANOCOBALAMIN 1000MCG/ML VIAL SUBCUT SCH (13:30)
[2021-11-19] MEDS ORDERED: LEVO500T89 MT (13:30)
[2021-11-19] MEDS ORDERED: FUROSEMIDE 40MG/4ML VIAL IVP NR (14:15)
[2021-11-19 16:00] VITALS: BP 129/88
[2021-11-19 16:32] LABS: HEMATOCRIT. 27.3 % (36.0-48.0); HEMOGLOBIN. 8.2 g/dL (12.0-16.0); MEAN CORPUSCULAR HEMOGLOBIN 20.9 pg (28.0-32.0); MEAN CORPUSCULAR VOLUME 69.5 fL (81.0-99.0); MEAN PLATELET VOLUME 8.5 fl (7.4-10.4); PLATELET 350 x1000/uL (130-400); RED BLOOD CELL COUNT 3.94 mill/uL (4.2-5.4); RED CELL DISTRIBUTION WIDTH 25.2 % (11.6-14.6)
[2021-11-19 16:45] VITALS: BP 130/84
[2021-11-19 20:01] LABS: PLATELET ESTIMATE NORMAL
[2021-11-19] MEDS: INSULIN GLARGINE 100 UNITS/ML SUBCUT SCH (21:10)
[2021-11-20] MEDS ORDERED: FUROSEMIDE 40MG/4ML VIAL IVP SCH (09:00)
== END 2021-11-19 21:15 | disposition home or self-care (01) | DRG 189 ==
LOC: ER 17:39 → 8WST 22:53 → ENRESERV 23:02
PROVIDERS: ADMIT Internal Medicine; ATTEND Internal Medicine
PROC: 5A09357 Assistance with Respiratory Ventilation, Less than 24 Consecutive Hours, Continuous Positive Airway Pressure (ICD-10-PCS; 2021-11-14)
PROC: 5A09357 Assistance with Respiratory Ventilation, Less than 24 Consecutive Hours, Continuous Positive Airway Pressure (ICD-10-PCS; 2021-11-15)
PROC: 30233N1 Transfusion of Nonautologous Red Blood Cells into Peripheral Vein, Percutaneous Approach (ICD-10-PCS; principal; 2021-11-16)
PROC: 5A09457 Assistance with Respiratory Ventilation, 24-96 Consecutive Hours, Continuous Positive Airway Pressure (ICD-10-PCS; 2021-11-16)
DX: J96.21 Acute and chronic respiratory failure with hypoxia (principal); I48.20 Chronic atrial fibrillation, unspecified; J44.1 Chronic obstructive pulmonary disease with (acute) exacerbation; I50.32 Chronic diastolic (congestive) heart failure; J84.9 Interstitial pulmonary disease, unspecified; R65.10 Systemic inflammatory response syndrome (SIRS) of non-infectious origin without acute organ dysfunction; I48.92 Unspecified atrial flutter; J96.22 Acute and chronic respiratory failure with hypercapnia; E66.01 Morbid (severe) obesity due to excess calories; G89.29 Other chronic pain; I11.0 Hypertensive heart disease with heart failure; E87.6 Hypokalemia; E78.5 Hyperlipidemia, unspecified; I25.10 Atherosclerotic heart disease of native coronary artery without angina pectoris; K21.9 Gastro-esophageal reflux disease without esophagitis; E05.90 Thyrotoxicosis, unspecified without thyrotoxic crisis or storm; M54.9 Dorsalgia, unspecified; I70.0 Atherosclerosis of aorta; I35.0 Nonrheumatic aortic (valve) stenosis; E11.9 Type 2 diabetes mellitus without complications; D50.9 Iron deficiency anemia, unspecified; D35.01 Benign neoplasm of right adrenal gland; R07.9 Chest pain, unspecified; I27.20 Pulmonary hypertension, unspecified; Z87.891 Personal history of nicotine dependence; Z95.0 Presence of cardiac pacemaker; Z99.81 Dependence on supplemental oxygen; Z79.01 Long term (current) use of anticoagulants; Z68.39 Body mass index [BMI] 39.0-39.9, adult; Z79.899 Other long term (current) drug therapy; Z79.52 Long term (current) use of systemic steroids
CPT/HCPCS: 36415; 36600; 71045; 74176; 80048; 80053; 82010; 82270; 82375; 82607; 82728; 82746; 82805; 82962; 83036; 83540; 83550; 83735; 83880; 84100; 84145; 84439; 84443; 84484; 85014; 85018; 85025; 85044; 85049; 85379; 85384; 86850; 86900; 86920; 93005; 93970; 94660; 99291; C9113; J0696; J1815; J1940; J2270; J2405; J3420; J7060; J7512; P9016

== ENCOUNTER 2021-12-02 18:33 | Inpatient (IN) | payer BC, MEDICAID ==
[~2021-12-02] VITALS: Ht 165.1 cm; Wt 105.4 kg
[~2021-12-02 18:33] MED LIST changes: +ASCO-339 PO; -ASCO500C18 PO; -ATROV INH; -FAMO-135 PO; +FLUT1BLS3 INH; +INSLIS SUBCUT; -INSU100I28 SQ; +LEVO500T90 MT; -METF-414 MT; +METH-371 PO; -P20 PO; +POTA-205 PO; -POTA20TA82 PO; -TAP5 PO
[2021-12-02] MEDS ORDERED: ALBUTEROL (0.083%) 2.5MG/3ML NEB HHN STA (18:36)
[2021-12-02] MEDS ORDERED: IPRATROPIUM BROMIDE (0.02%) 0.5MG/2.5ML NEB HHN STA (18:36)
[2021-12-02] MEDS ORDERED: FUROSEMIDE 40MG/4ML VIAL IVP ONE (18:45)
[2021-12-02 19:02] LABS: HEMATOCRIT. 30.7 % (36.0-48.0); MEAN CORPUSCULAR HEMOGLOBIN 21.4 pg (28.0-32.0); MEAN CORPUSCULAR VOLUME 72.9 fL (81.0-99.0); MEAN PLATELET VOLUME 8.7 fl (7.4-10.4); PLATELET 258 x1000/uL (130-400); RED BLOOD CELL COUNT 4.21 mill/uL (4.2-5.4); RED CELL DISTRIBUTION WIDTH 29.1 % (11.6-14.6)
[2021-12-02 19:05] LABS: CHLORIDE 106 mEq/L (98-107)
[2021-12-02] MEDS ORDERED: LEVOFLOXACIN 500MG PREMIX 100 ML IV ONE (19:30)
[2021-12-02] MEDS ORDERED: ONDANSETRON HCL 4MG/2ML INJ IV STA (19:44)
[2021-12-02] MEDS ORDERED: MORPHINE SULFATE 4 MG/ML CPJ (NOT FOR IM USE) IV STA (19:44)
[2021-12-02] MEDS ORDERED: SODIUM CHLORIDE 0.9% 1000ML BAG (SEPSIS BOLUS) IV ONE (19:45)
[2021-12-02 20:03] LABS: PLATELET ESTIMATE NORMAL
[2021-12-02 20:05] LABS: BG BASE EXCESS -1.5 mmol/L (-2.0-2.0); BG CARBOXYHEMOGLOBIN 0.1 % (0.5-1.5); BG DEOXYHEMOGLOBIN 2.4 % (0.0-5.0); BG FRACTION INSPIRED OXYGEN 40; BG HCO3 ACT 23.3 mmol/L (22.0-26.0); BG METHEMOGLOBIN 0.3 % (0.0-1.5); BG OXYGEN SATURATION 97.6 % (92.0-98.5); BG OXYHEMOGLOBIN 97.2 % (94.0-97.0); BG PCO2 39.4 mmHg (35.0-45.0); BG TOTAL HEMOGLOBIN 9.7 g/dL (12.0-18.0); BG VENT MODE MASK - BIPAP
[2021-12-03] VITALS (11 sets, daily range): BP systolic 118–145; BP diastolic 43–98
[2021-12-03] MEDS ORDERED: DEXTROSE 50% WATER 50ML SYRINGE IV PRN (02:45)
[2021-12-03] MEDS ORDERED: VANCOMYCIN 2,000 MG in DEXT 5% WATER 500 ML IV NR ×2 (03:15→04:45)
[2021-12-03] MEDS: HYDROCODONE/ACETAMINOPHEN 5/325MG TABLET PO PRN ×5 (03:37→22:13)
[2021-12-03 03:52] LABS: CLARITY URINE CLEAR (CLEAR); COLOR URINE YELLOW (YELLOW); KETONES URINE NEGATIVE (NEGATIVE); LEUKOCYTE ESTERASE URINE NEGATIVE (NEGATIVE); NITRITE URINE POSITIVE (NEGATIVE); OCCULT BLOOD URINE NEGATIVE (NEGATIVE); PROTEIN URINE NEGATIVE (NEGATIVE); SPECIFIC GRAVITY URINE 1.014 (1.005-1.030); UROBILINOGEN URINE 0.2 E.U./dL (0.2-1.0)
[2021-12-03] MEDS: PIPERACILLIN/TAZOBACTAM 3.375 G in DEXTROSE 5% WATER 50 ML IV SCH ×3 (04:45→22:14)
[2021-12-03 06:06] LABS: HEMATOCRIT. 27.5 % (36.0-48.0); MEAN CORPUSCULAR HEMOGLOBIN 21.2 pg (28.0-32.0); MEAN CORPUSCULAR VOLUME 72.5 fL (81.0-99.0); MEAN PLATELET VOLUME 8.5 fl (7.4-10.4); PLATELET 212 x1000/uL (130-400); RED BLOOD CELL COUNT 3.79 mill/uL (4.2-5.4); RED CELL DISTRIBUTION WIDTH 28.4 % (11.6-14.6)
[2021-12-03 06:27] LABS: CHLORIDE 108 mEq/L (98-107)
[2021-12-03] MEDS: BLOOD SUGAR DIAGNOSTIC STRIP TEST SCH ×4 (08:08→20:09)
[2021-12-03] MEDS: METHIMAZOLE 5MG TABLET PO SCH (08:12)
[2021-12-03] MEDS: PANTOPRAZOLE SODIUM 40 MG/VIAL IV SCH (08:12)
[2021-12-03] MEDS: INSULIN LISPRO 100 UNITS/ML SUBCUT SCH ×4 (08:13→20:11)
[2021-12-03 08:30] LABS: BG BASE EXCESS 5.8 mmol/L (-2.0-2.0); BG CARBOXYHEMOGLOBIN 0.7 % (0.5-1.5); BG DEOXYHEMOGLOBIN 12.2 % (0.0-5.0); BG FRACTION INSPIRED OXYGEN 32; BG HCO3 ACT 31.4 mmol/L (22.0-26.0); BG METHEMOGLOBIN 0.3 % (0.0-1.5); BG OXYGEN SATURATION 87.7 % (92.0-98.5); BG OXYHEMOGLOBIN 86.8 % (94.0-97.0); BG PCO2 51.3 mmHg (35.0-45.0); BG PH 7.404 (7.350-7.450); BG PO2 54.3 mmHg (75.0-100.0); BG SAMPLE SITE RIGHT RADIAL; BG VENT MODE NASAL CANNULA
[2021-12-03] MEDS: IPRATROPIUM/ALBUTEROL 0.5-3(2.5)MG/3ML NEB HHN SCH ×3 (08:42→20:34)
[2021-12-03] MEDS ORDERED: ENOXAPARIN 30MG/0.3ML SYR SUBCUT SCH (09:00)
[2021-12-03] MEDS ORDERED: FUROSEMIDE 40MG TABLET PO SCH (09:00)
[2021-12-03] MEDS ORDERED: APIXABAN 5 MG TABLET PO SCH (09:00)
[2021-12-03] MEDS ORDERED: FUROSEMIDE 40MG/4ML VIAL IVP SCH (09:00)
[2021-12-03] MEDS: METHYLPREDNISOLONE SOD SUCC 40 MG/ML VIAL IV SCH ×2 (13:27→22:13)
[2021-12-03] MEDS ORDERED: POTASSIUM CHLORIDE 20MEQ/PACKET PO NR (14:59)
[2021-12-03] MEDS: APIXABAN 5 MG TABLET PO SCH (17:41)
[2021-12-03] MEDS ORDERED: NALOXONE HCL 0.4MG/ML VIAL IV PRN (18:45)
[2021-12-03] MEDS: FUROSEMIDE 40MG/4ML VIAL IVP SCH (22:13)
[2021-12-04] VITALS (12 sets, daily range): BP systolic 127–180; BP diastolic 59–119
[2021-12-04] MEDS: IPRATROPIUM/ALBUTEROL 0.5-3(2.5)MG/3ML NEB HHN SCH ×4 (00:08→19:33)
[2021-12-04] MEDS ORDERED: VANCOMYCIN 1G PREMIX 200 ML IV SCH (01:30)
[2021-12-04] MEDS: HYDROCODONE/ACETAMINOPHEN 5/325MG TABLET PO PRN ×5 (01:55→20:45)
[2021-12-04 06:29] LABS: HEMATOCRIT. 29.5 % (36.0-48.0); HEMOGLOBIN. 8.8 g/dL (12.0-16.0); MEAN CORPUSCULAR HEMOGLOBIN 21.3 pg (28.0-32.0); MEAN CORPUSCULAR VOLUME 71.4 fL (81.0-99.0); MEAN PLATELET VOLUME 8.8 fl (7.4-10.4); PLATELET 199 x1000/uL (130-400); RED BLOOD CELL COUNT 4.13 mill/uL (4.2-5.4); RED CELL DISTRIBUTION WIDTH 29.2 % (11.6-14.6)
[2021-12-04] MEDS: METHYLPREDNISOLONE SOD SUCC 40 MG/ML VIAL IV SCH ×3 (06:30→21:47)
[2021-12-04] MEDS: PIPERACILLIN/TAZOBACTAM 3.375 G in DEXTROSE 5% WATER 50 ML IV SCH ×3 (06:30→21:47)
[2021-12-04 06:47] LABS: CHLORIDE 100 mEq/L (98-107)
[2021-12-04] MEDS: BLOOD SUGAR DIAGNOSTIC STRIP TEST SCH ×4 (08:05→20:44)
[2021-12-04] MEDS: VANCOMYCIN 1.25GM PMX (XELLIA) 250 ML IV SCH (08:41)
[2021-12-04] MEDS: METHIMAZOLE 5MG TABLET PO SCH (08:42)
[2021-12-04] MEDS: FUROSEMIDE 40MG/4ML VIAL IVP SCH ×2 (08:42→20:44)
[2021-12-04] MEDS: PANTOPRAZOLE SODIUM 40 MG/VIAL IV SCH (08:42)
[2021-12-04] MEDS: APIXABAN 5 MG TABLET PO SCH ×2 (08:42→17:25)
[2021-12-04 08:49] LABS: BG CARBOXYHEMOGLOBIN 0.5 % (0.5-1.5); BG DEOXYHEMOGLOBIN 1.3 % (0.0-5.0); BG FRACTION INSPIRED OXYGEN 30; BG HCO3 ACT 32.8 mmol/L (22.0-26.0); BG METHEMOGLOBIN 0.4 % (0.0-1.5); BG OXYGEN SATURATION 98.7 % (92.0-98.5); BG OXYHEMOGLOBIN 97.8 % (94.0-97.0); BG PCO2 47.5 mmHg (35.0-45.0); BG PH 7.457 (7.350-7.450); BG PO2 142.1 mmHg (75.0-100.0); BG SAMPLE SITE RIGHT RADIAL; BG TOTAL HEMOGLOBIN 9.2 g/dL (12.0-18.0); BG VENT MODE MASK - BIPAP
[2021-12-04] MEDS: INSULIN LISPRO 100 UNITS/ML SUBCUT SCH ×4 (09:04→20:44)
[2021-12-04] MEDS ORDERED: METOLAZONE 2.5MG TABLET PO NR (12:00)
[2021-12-04] MEDS ORDERED: POTASSIUM CHLORIDE 20MEQ/PACKET PO NR (12:00)
[2021-12-04 13:50] LABS: PLATELET ESTIMATE NORMAL
[2021-12-04 14:42] LABS: PLATELET ESTIMATE NORMAL
[2021-12-04] MEDS: FAMOTIDINE 20MG TABLET PO SCH (20:44)
[2021-12-05] VITALS (12 sets, daily range): BP systolic 132–160; BP diastolic 75–103
[2021-12-05] MEDS: IPRATROPIUM/ALBUTEROL 0.5-3(2.5)MG/3ML NEB HHN SCH ×6 (00:18→20:48)
[2021-12-05] MEDS: HYDROCODONE/ACETAMINOPHEN 5/325MG TABLET PO PRN ×5 (04:14→21:53)
[2021-12-05] MEDS: PIPERACILLIN/TAZOBACTAM 3.375 G in DEXTROSE 5% WATER 50 ML IV SCH ×3 (05:53→21:51)
[2021-12-05] MEDS: METHYLPREDNISOLONE SOD SUCC 40 MG/ML VIAL IV SCH ×2 (05:53→12:42)
[2021-12-05] MEDS: BLOOD SUGAR DIAGNOSTIC STRIP TEST SCH ×4 (07:41→20:24)
[2021-12-05 08:10] LABS: HEMATOCRIT. 28.1 % (36.0-48.0); HEMOGLOBIN. 8.5 g/dL (12.0-16.0); MEAN CORPUSCULAR HEMOGLOBIN 21.8 pg (28.0-32.0); MEAN CORPUSCULAR VOLUME 71.5 fL (81.0-99.0); MEAN PLATELET VOLUME 8.7 fl (7.4-10.4); PLATELET 224 x1000/uL (130-400); RED BLOOD CELL COUNT 3.92 mill/uL (4.2-5.4); RED CELL DISTRIBUTION WIDTH 29.2 % (11.6-14.6)
[2021-12-05] MEDS: FUROSEMIDE 40MG/4ML VIAL IVP SCH ×2 (08:19→21:03)
[2021-12-05] MEDS: FAMOTIDINE 20MG TABLET PO SCH ×2 (08:19→21:03)
[2021-12-05] MEDS: APIXABAN 5 MG TABLET PO SCH ×2 (08:19→17:42)
[2021-12-05] MEDS: VANCOMYCIN 1.25GM PMX (XELLIA) 250 ML IV SCH (08:21)
[2021-12-05] MEDS: INSULIN LISPRO 100 UNITS/ML SUBCUT SCH ×4 (08:21→21:01)
[2021-12-05 08:41] LABS: CHLORIDE 95 mEq/L (98-107)
[2021-12-05] MEDS: METHIMAZOLE 5MG TABLET PO SCH (09:00)
[2021-12-05 09:26] LABS: PLATELET ESTIMATE NORMAL
[2021-12-05] MEDS ORDERED: APIX5TAB PO (10:35)
[2021-12-05] MEDS ORDERED: P20 MT (10:35)
[2021-12-05] MEDS ORDERED: LEVO500T90 MT (10:35)
[2021-12-05] MEDS ORDERED: FURO-151 PO (10:35)
[2021-12-05] MEDS ORDERED: POTASSIUM CHLORIDE 20MEQ/PACKET PO NR (13:15)
[2021-12-05] MEDS ORDERED: INSULIN GLARGINE 100 UNITS/ML SUBCUT NR (16:30)
[2021-12-06] VITALS (17 sets, daily range): BP systolic 130–153; BP diastolic 60–102
[2021-12-06] MEDS: IPRATROPIUM/ALBUTEROL 0.5-3(2.5)MG/3ML NEB HHN SCH ×4 (00:06→15:48)
[2021-12-06] MEDS: PIPERACILLIN/TAZOBACTAM 3.375 G in DEXTROSE 5% WATER 50 ML IV SCH ×2 (05:35→13:25)
[2021-12-06] MEDS: HYDROCODONE/ACETAMINOPHEN 5/325MG TABLET PO PRN ×4 (05:36→17:58)
[2021-12-06] MEDS: BLOOD SUGAR DIAGNOSTIC STRIP TEST SCH ×3 (07:30→16:55)
[2021-12-06] MEDS: FUROSEMIDE 40MG/4ML VIAL IVP SCH (08:52)
[2021-12-06] MEDS: FAMOTIDINE 20MG TABLET PO SCH (08:52)
[2021-12-06] MEDS: APIXABAN 5 MG TABLET PO SCH ×2 (08:52→17:01)
[2021-12-06] MEDS: METHIMAZOLE 5MG TABLET PO SCH (08:52)
[2021-12-06] MEDS: VANCOMYCIN 1.25GM PMX (XELLIA) 250 ML IV SCH (08:53)
[2021-12-06] MEDS: INSULIN LISPRO 100 UNITS/ML SUBCUT SCH ×3 (08:54→17:04)
[2021-12-06] MEDS ORDERED: PREDNISONE 20MG TABLET PO SCH (09:00)
[2021-12-06 11:45] LABS: MEAN CORPUSCULAR HEMOGLOBIN 21.8 pg (28.0-32.0); MEAN CORPUSCULAR VOLUME 71.3 fL (81.0-99.0); MEAN PLATELET VOLUME 8.7 fl (7.4-10.4); PLATELET 232 x1000/uL (130-400); RED BLOOD CELL COUNT 4.49 mill/uL (4.2-5.4); RED CELL DISTRIBUTION WIDTH 28.9 % (11.6-14.6)
[2021-12-06 12:17] LABS: HEMOGLOBIN. 9.8 g/dL (12.0-16.0)
[2021-12-06 12:25] LABS: CHLORIDE 93 mEq/L (98-107)
[2021-12-06 12:59] LABS: PLATELET ESTIMATE NORMAL
== END 2021-12-06 19:28 | disposition home or self-care (01) | DRG 291 ==
LOC: ER 18:33 → 5EST 21:15 → EDBEDREQ 21:34 → EDBEDREQTM 21:34 → ENRESERV 22:00 → 5EST 12-03 00:12
PROVIDERS: ADMIT Internal Medicine; ATTEND Internal Medicine
PROC: 5A09357 Assistance with Respiratory Ventilation, Less than 24 Consecutive Hours, Continuous Positive Airway Pressure (ICD-10-PCS; principal; 2021-12-02)
PROC: 5A09357 Assistance with Respiratory Ventilation, Less than 24 Consecutive Hours, Continuous Positive Airway Pressure (ICD-10-PCS; 2021-12-03)
PROC: 5A09357 Assistance with Respiratory Ventilation, Less than 24 Consecutive Hours, Continuous Positive Airway Pressure (ICD-10-PCS; 2021-12-04)
PROC: 5A09357 Assistance with Respiratory Ventilation, Less than 24 Consecutive Hours, Continuous Positive Airway Pressure (ICD-10-PCS; 2021-12-05)
PROC: 5A09357 Assistance with Respiratory Ventilation, Less than 24 Consecutive Hours, Continuous Positive Airway Pressure (ICD-10-PCS; 2021-12-06)
DX: I11.0 Hypertensive heart disease with heart failure (principal); I50.33 Acute on chronic diastolic (congestive) heart failure; J18.9 Pneumonia, unspecified organism; J44.1 Chronic obstructive pulmonary disease with (acute) exacerbation; J96.12 Chronic respiratory failure with hypercapnia; I48.20 Chronic atrial fibrillation, unspecified; I48.92 Unspecified atrial flutter; J96.11 Chronic respiratory failure with hypoxia; R65.10 Systemic inflammatory response syndrome (SIRS) of non-infectious origin without acute organ dysfunction; J44.0 Chronic obstructive pulmonary disease with (acute) lower respiratory infection; E11.9 Type 2 diabetes mellitus without complications; D35.01 Benign neoplasm of right adrenal gland; D64.9 Anemia, unspecified; E66.01 Morbid (severe) obesity due to excess calories; I27.20 Pulmonary hypertension, unspecified; E78.5 Hyperlipidemia, unspecified; K21.9 Gastro-esophageal reflux disease without esophagitis; F17.200 Nicotine dependence, unspecified, uncomplicated; Z68.38 Body mass index [BMI] 38.0-38.9, adult; Z95.0 Presence of cardiac pacemaker; Z79.899 Other long term (current) drug therapy; Z82.49 Family history of ischemic heart disease and other diseases of the circulatory system; Z99.81 Dependence on supplemental oxygen; Z79.01 Long term (current) use of anticoagulants; Z79.84 Long term (current) use of oral hypoglycemic drugs; Z79.4 Long term (current) use of insulin; E05.90 Thyrotoxicosis, unspecified without thyrotoxic crisis or storm; D72.829 Elevated white blood cell count, unspecified
CPT/HCPCS: 36415; 36600; 71045; 80048; 80053; 80202; 81003; 82375; 82805; 82962; 83036; 83605; 83735; 83880; 84145; 84484; 85025; 87077; 93005; 93306; 93970; 94640; 94660; 99291; C9113; J1650; J1815; J1940; J1956; J2270; J2405; J2543; J2920; J3370; J7030; J7060; J7512

== ENCOUNTER 2022-02-15 12:52 | Inpatient (IN) | payer MEDICARE, MEDICAID ==
[~2022-02-15] VITALS: Ht 162.6 cm; Wt 106.8 kg
[~2022-02-15 12:52] MED LIST changes: +DOCU-138 MT; +HYDR-4001 MT; +INSU100I28 SQ; -LEVO500T90 MT; +MELA1TAB51 MT; +MORP15TA54 PO; +NETA2.5D EACHEYE; +P20 PO; +POLY17PO3 MT; +SPIR25TA6 MT; +ZOLP5TAB2 MT
[2022-02-15] MEDS ORDERED: IPRATROPIUM BROMIDE (0.02%) 0.5MG/2.5ML NEB HHN STA (12:54)
[2022-02-15] MEDS: ALBUTEROL (0.083%) 2.5MG/3ML NEB HHN SCH ×3 (13:06→13:52)
[2022-02-15] MEDS ORDERED: MORPHINE SULFATE 4 MG/ML CPJ (NOT FOR IM USE) IV ONE (13:30)
[2022-02-15 14:07] LABS: BASOPHILS % 0.4 % (0.0-2.0); EOSINOPHILS % 5.4 % (0.0-5.0); HEMATOCRIT. 31.3 % (36.0-48.0); HEMOGLOBIN. 9.8 g/dL (12.0-16.0); LYMPHOCYTES % 26.5 % (20.0-50.0); MEAN CORPUSCULAR HEMOGLOBIN 23.7 pg (28.0-32.0); MEAN CORPUSCULAR VOLUME 75.4 fL (81.0-99.0); MEAN PLATELET VOLUME 7.4 fl (7.4-10.4); MONOCYTES % 9.9 % (2.0-8.0); NEUTROPHILS % 57.8 % (40.0-76.0); PLATELET 331 x1000/uL (130-400); RED BLOOD CELL COUNT 4.15 mill/uL (4.2-5.4)
[2022-02-15 14:13] LABS: CHLORIDE 108 mEq/L (98-107)
[2022-02-15] MEDS ORDERED: METHYLPREDNISOLONE SOD SUCC 125 MG/2 ML VIAL IV STA (15:04)
[2022-02-15] MEDS ORDERED: CLONIDINE 0.1MG TABLET PO PRN (15:45)
[2022-02-15] MEDS ORDERED: ACETAMINOPHEN 325MG TABLET PO PRN (15:45)
[2022-02-15] MEDS ORDERED: LEVOFLOXACIN 500MG PREMIX 100 ML IV SCH (16:00)
[2022-02-15] MEDS ORDERED: NALOXONE HCL 0.4MG/ML VIAL IV PRN (16:00)
[2022-02-15 16:05] LABS: BG BASE EXCESS -4.1 mmol/L (-2.0-2.0); BG CARBOXYHEMOGLOBIN 0.3 % (0.5-1.5); BG DEOXYHEMOGLOBIN 1.5 % (0.0-5.0); BG FRACTION INSPIRED OXYGEN 30; BG HCO3 ACT 19.6 mmol/L (22.0-26.0); BG METHEMOGLOBIN 0.3 % (0.0-1.5); BG OXYGEN SATURATION 98.5 % (92.0-98.5); BG OXYHEMOGLOBIN 97.9 % (94.0-97.0); BG PCO2 31.1 mmHg (35.0-45.0); BG PH 7.418 (7.350-7.450); BG PO2 132.3 mmHg (75.0-100.0); BG SAMPLE SITE RIGHT BRACHIAL; BG TOTAL HEMOGLOBIN 9.8 g/dL (12.0-18.0); BG VENT MODE MASK - BIPAP
[2022-02-15] MEDS: POTASSIUM CHLORIDE 20MEQ TABLET SR PO SCH (16:09)
[2022-02-15] MEDS: APIXABAN 5 MG TABLET PO SCH (16:09)
[2022-02-15] MEDS: HYDROCODONE/ACETAMINOPHEN 5/325MG TABLET PO PRN ×2 (16:35→21:10)
[2022-02-15 17:45] VITALS: BP 117/91
[2022-02-15 17:56] VITALS: BP 117/91
[2022-02-15 18:00] VITALS: BP 137/77
[2022-02-15] MEDS: INSULIN LISPRO 100 UNITS/ML SUBCUT SCH ×3 (18:14→21:12)
[2022-02-15] MEDS: BLOOD SUGAR DIAGNOSTIC STRIP TEST SCH ×2 (18:15→21:10)
[2022-02-15] MEDS ORDERED: DEXTROSE 50% WATER 50ML SYRINGE IV PRN ×2 (18:15)
[2022-02-15] MEDS ORDERED: INSULIN LISPRO 100 UNITS/ML SUBCUT SCH (18:20)
[2022-02-15 20:00] VITALS: BP 120/89
[2022-02-15] MEDS: IPRATROPIUM/ALBUTEROL 0.5-3(2.5)MG/3ML NEB NEB SCH ×2 (20:01→23:44)
[2022-02-15] MEDS ORDERED: BLOOD SUGAR DIAGNOSTIC STRIP TEST SCH (21:00)
[2022-02-15] MEDS: METHYLPREDNISOLONE SOD SUCC 40 MG/ML VIAL IV SCH (21:09)
[2022-02-15] MEDS: TRAZODONE HCL 50MG TABLET PO SCH (21:11)
[2022-02-15] MEDS: INSULIN GLARGINE 100 UNITS/ML SUBCUT SCH (21:12)
[2022-02-15 22:00] VITALS: BP 89/31
[2022-02-16] VITALS (12 sets, daily range): BP systolic 114–146; BP diastolic 59–97
[2022-02-16 00:43] LABS: CREATINE KINASE 29 IU/L (26-192); CREATINE KINASE MB FRACTION < 1.0 ng/mL (0.5-3.6)
[2022-02-16] MEDS: HYDROCODONE/ACETAMINOPHEN 10/325MG TABLET PO PRN ×5 (01:24→20:06)
[2022-02-16] MEDS: IPRATROPIUM/ALBUTEROL 0.5-3(2.5)MG/3ML NEB NEB SCH ×5 (03:09→20:53)
[2022-02-16] MEDS: METHYLPREDNISOLONE SOD SUCC 40 MG/ML VIAL IV SCH ×3 (05:37→21:42)
[2022-02-16 06:16] LABS: CHLORIDE 105 mEq/L (98-107)
[2022-02-16 06:31] LABS: CREATINE KINASE 18 IU/L (26-192); CREATINE KINASE MB FRACTION < 1.0 ng/mL (0.5-3.6)
[2022-02-16 06:33] LABS: BASOPHILS % 0.2 % (0.0-2.0); HEMATOCRIT. 28.9 % (36.0-48.0); HEMOGLOBIN. 9.2 g/dL (12.0-16.0); LYMPHOCYTES % 11.3 % (20.0-50.0); MEAN CORPUSCULAR VOLUME 75.8 fL (81.0-99.0); MEAN PLATELET VOLUME 7.8 fl (7.4-10.4); MONOCYTES % 1.5 % (2.0-8.0); PLATELET 290 x1000/uL (130-400); RED BLOOD CELL COUNT 3.81 mill/uL (4.2-5.4); RED CELL DISTRIBUTION WIDTH 19.7 % (11.6-14.6)
[2022-02-16] MEDS: BLOOD SUGAR DIAGNOSTIC STRIP TEST SCH ×4 (07:30→21:00)
[2022-02-16] MEDS: INSULIN LISPRO 100 UNITS/ML SUBCUT SCH ×7 (08:00→21:42)
[2022-02-16 08:30] LABS: BG BASE EXCESS -4.4 mmol/L (-2.0-2.0); BG DEOXYHEMOGLOBIN 1.1 % (0.0-5.0); BG FRACTION INSPIRED OXYGEN 38; BG HCO3 ACT 19.9 mmol/L (22.0-26.0); BG METHEMOGLOBIN 0.3 % (0.0-1.5); BG OXYGEN SATURATION 98.9 % (92.0-98.5); BG OXYHEMOGLOBIN 98.6 % (94.0-97.0); BG PCO2 33.6 mmHg (35.0-45.0); BG PH 7.391 (7.350-7.450); BG PO2 147.6 mmHg (75.0-100.0); BG SAMPLE SITE RIGHT BRACHIAL; BG TOTAL HEMOGLOBIN 9.6 g/dL (12.0-18.0); BG VENT MODE NASAL CANNULA
[2022-02-16] MEDS: CITALOPRAM HYDROBROMIDE 10MG TABLET PO SCH (09:26)
[2022-02-16] MEDS: APIXABAN 5 MG TABLET PO SCH ×2 (09:26→18:14)
[2022-02-16] MEDS: SPIRONOLACTONE 25MG TABLET PO SCH (09:27)
[2022-02-16] MEDS: PANTOPRAZOLE 40MG DR TABLET PO SCH (09:28)
[2022-02-16] MEDS: INSULIN GLARGINE 100 UNITS/ML SUBCUT SCH ×2 (09:44→21:43)
[2022-02-16] MEDS: POTASSIUM CHLORIDE 20MEQ TABLET SR PO SCH (09:58)
[2022-02-16] MEDS: METHIMAZOLE 5MG TABLET PO SCH (09:59)
[2022-02-16] MEDS: LEVOFLOXACIN 500MG TABLET PO SCH (15:33)
[2022-02-16] MEDS: TRAZODONE HCL 50MG TABLET PO SCH (21:41)
[2022-02-17] VITALS (11 sets, daily range): BP systolic 107–166; BP diastolic 54–107
[2022-02-17] MEDS: IPRATROPIUM/ALBUTEROL 0.5-3(2.5)MG/3ML NEB NEB SCH ×6 (00:12→20:41)
[2022-02-17] MEDS: HYDROCODONE/ACETAMINOPHEN 10/325MG TABLET PO PRN ×4 (05:53→19:47)
[2022-02-17] MEDS: METHYLPREDNISOLONE SOD SUCC 40 MG/ML VIAL IV SCH ×3 (05:53→21:17)
[2022-02-17] MEDS: BLOOD SUGAR DIAGNOSTIC STRIP TEST SCH ×4 (07:39→21:00)
[2022-02-17] MEDS: INSULIN LISPRO 100 UNITS/ML SUBCUT SCH ×7 (08:56→21:18)
[2022-02-17] MEDS: POTASSIUM CHLORIDE 20MEQ TABLET SR PO SCH (08:57)
[2022-02-17] MEDS: CITALOPRAM HYDROBROMIDE 10MG TABLET PO SCH (08:57)
[2022-02-17] MEDS: APIXABAN 5 MG TABLET PO SCH ×2 (08:58→17:16)
[2022-02-17] MEDS: PANTOPRAZOLE 40MG DR TABLET PO SCH (08:58)
[2022-02-17] MEDS: SPIRONOLACTONE 25MG TABLET PO SCH (09:02)
[2022-02-17] MEDS: METHIMAZOLE 5MG TABLET PO SCH (09:10)
[2022-02-17] MEDS: INSULIN GLARGINE 100 UNITS/ML SUBCUT SCH ×2 (09:49→21:18)
[2022-02-17] MEDS: LEVOFLOXACIN 500MG TABLET PO SCH (17:16)
[2022-02-17] MEDS: TRAZODONE HCL 50MG TABLET PO SCH (21:16)
[2022-02-18] VITALS (18 sets, daily range): BP systolic 136–172; BP diastolic 89–121
[2022-02-18] MEDS: HYDROCODONE/ACETAMINOPHEN 10/325MG TABLET PO PRN ×5 (00:04→20:20)
[2022-02-18] MEDS: IPRATROPIUM/ALBUTEROL 0.5-3(2.5)MG/3ML NEB NEB SCH ×2 (00:41→03:45)
[2022-02-18] MEDS: METHYLPREDNISOLONE SOD SUCC 40 MG/ML VIAL IV SCH ×3 (05:25→21:48)
[2022-02-18] MEDS: BLOOD SUGAR DIAGNOSTIC STRIP TEST SCH ×4 (07:55→20:44)
[2022-02-18] MEDS: INSULIN LISPRO 100 UNITS/ML SUBCUT SCH ×7 (08:00→21:50)
[2022-02-18] MEDS: PANTOPRAZOLE 40MG DR TABLET PO SCH (08:13)
[2022-02-18] MEDS: APIXABAN 5 MG TABLET PO SCH ×2 (08:13→16:30)
[2022-02-18] MEDS: POTASSIUM CHLORIDE 20MEQ TABLET SR PO SCH (08:13)
[2022-02-18] MEDS: CITALOPRAM HYDROBROMIDE 10MG TABLET PO SCH (08:13)
[2022-02-18] MEDS: SPIRONOLACTONE 25MG TABLET PO SCH (08:13)
[2022-02-18] MEDS: METHIMAZOLE 5MG TABLET PO SCH (09:52)
[2022-02-18] MEDS: INSULIN GLARGINE 100 UNITS/ML SUBCUT SCH ×2 (10:00→21:50)
[2022-02-18] MEDS: LEVOFLOXACIN 500MG TABLET PO SCH (16:30)
[2022-02-18] MEDS: TRAZODONE HCL 50MG TABLET PO SCH (20:20)
[2022-02-18] MEDS: ONDANSETRON HCL 4MG/2ML INJ IV PRN (21:48)
[2022-02-18] MEDS: LOSARTAN POTASSIUM 100 MG TABLET PO SCH (21:54)
[2022-02-19] VITALS (13 sets, daily range): BP systolic 114–162; BP diastolic 72–109
[2022-02-19] MEDS: HYDROCODONE/ACETAMINOPHEN 10/325MG TABLET PO PRN ×5 (03:30→21:38)
[2022-02-19] MEDS: METHYLPREDNISOLONE SOD SUCC 40 MG/ML VIAL IV SCH ×3 (05:44→21:37)
[2022-02-19] MEDS: BLOOD SUGAR DIAGNOSTIC STRIP TEST SCH ×4 (07:30→20:14)
[2022-02-19] MEDS: INSULIN LISPRO 100 UNITS/ML SUBCUT SCH ×7 (07:46→20:14)
[2022-02-19] MEDS: CITALOPRAM HYDROBROMIDE 10MG TABLET PO SCH (08:43)
[2022-02-19] MEDS: METHIMAZOLE 5MG TABLET PO SCH (08:43)
[2022-02-19] MEDS: POTASSIUM CHLORIDE 20MEQ TABLET SR PO SCH (08:44)
[2022-02-19] MEDS: LOSARTAN POTASSIUM 100 MG TABLET PO SCH (08:44)
[2022-02-19] MEDS: PANTOPRAZOLE 40MG DR TABLET PO SCH (08:44)
[2022-02-19] MEDS: APIXABAN 5 MG TABLET PO SCH ×2 (08:45→17:15)
[2022-02-19] MEDS: SPIRONOLACTONE 25MG TABLET PO SCH (08:45)
[2022-02-19] MEDS ORDERED: MISCELLANEOUS MEDICATION 1 EA PO ONE (09:00)
[2022-02-19] MEDS: INSULIN GLARGINE 100 UNITS/ML SUBCUT SCH ×2 (10:12→21:39)
[2022-02-19] MEDS: LEVOFLOXACIN 500MG TABLET PO SCH (17:15)
[2022-02-19] MEDS: TRAZODONE HCL 50MG TABLET PO SCH (20:15)
[2022-02-19] MEDS: ONDANSETRON HCL 4MG/2ML INJ IV PRN (21:40)
[2022-02-20] VITALS (10 sets, daily range): BP systolic 109–150; BP diastolic 52–99
[2022-02-20] MEDS: HYDROCODONE/ACETAMINOPHEN 10/325MG TABLET PO PRN ×4 (01:21→15:21)
[2022-02-20] MEDS: METHYLPREDNISOLONE SOD SUCC 40 MG/ML VIAL IV SCH ×2 (05:47→13:55)
[2022-02-20] MEDS: BLOOD SUGAR DIAGNOSTIC STRIP TEST SCH ×2 (07:18→12:24)
[2022-02-20] MEDS ORDERED: FAMOTIDINE 20MG TABLET PO SCH (07:30)
[2022-02-20] MEDS: APIXABAN 5 MG TABLET PO SCH (08:55)
[2022-02-20] MEDS: METHIMAZOLE 5MG TABLET PO SCH (08:55)
[2022-02-20] MEDS: LOSARTAN POTASSIUM 100 MG TABLET PO SCH (08:55)
[2022-02-20] MEDS: POTASSIUM CHLORIDE 20MEQ TABLET SR PO SCH (08:55)
[2022-02-20] MEDS: INSULIN LISPRO 100 UNITS/ML SUBCUT SCH ×4 (08:57→12:48)
[2022-02-20] MEDS: INSULIN GLARGINE 100 UNITS/ML SUBCUT SCH (09:04)
[2022-02-20] MEDS: CITALOPRAM HYDROBROMIDE 10MG TABLET PO SCH (09:07)
[2022-02-20] MEDS: SPIRONOLACTONE 25MG TABLET PO SCH (09:07)
[2022-02-20] MEDS: LEVOFLOXACIN 500MG TABLET PO SCH (15:21)
[2022-02-20] MEDS ORDERED: ESCI20TA PO (15:36)
[2022-02-20] MEDS ORDERED: GLIM2TAB30 PO (15:36)
== END 2022-02-20 17:29 | disposition hospice, home (50) | DRG 191 ==
LOC: ER 13:10 → EDBEDREQSVC 15:53 → 5EST 18:07
PROVIDERS: ADMIT Internal Medicine; ATTEND Internal Medicine
PROC: 5A09357 Assistance with Respiratory Ventilation, Less than 24 Consecutive Hours, Continuous Positive Airway Pressure (ICD-10-PCS; principal; 2022-02-15)
PROC: 5A09357 Assistance with Respiratory Ventilation, Less than 24 Consecutive Hours, Continuous Positive Airway Pressure (ICD-10-PCS; 2022-02-16)
PROC: 5A09357 Assistance with Respiratory Ventilation, Less than 24 Consecutive Hours, Continuous Positive Airway Pressure (ICD-10-PCS; 2022-02-17)
PROC: 5A09357 Assistance with Respiratory Ventilation, Less than 24 Consecutive Hours, Continuous Positive Airway Pressure (ICD-10-PCS; 2022-02-18)
PROC: 5A09357 Assistance with Respiratory Ventilation, Less than 24 Consecutive Hours, Continuous Positive Airway Pressure (ICD-10-PCS; 2022-02-19)
PROC: 5A09357 Assistance with Respiratory Ventilation, Less than 24 Consecutive Hours, Continuous Positive Airway Pressure (ICD-10-PCS; 2022-02-20)
DX: J44.1 Chronic obstructive pulmonary disease with (acute) exacerbation (principal); I50.30 Unspecified diastolic (congestive) heart failure; Z68.41 Body mass index [BMI] 40.0-44.9, adult; I11.0 Hypertensive heart disease with heart failure; Z20.822 Contact with and (suspected) exposure to COVID-19; E78.5 Hyperlipidemia, unspecified; E66.9 Obesity, unspecified; D64.9 Anemia, unspecified; T38.0X5A Adverse effect of glucocorticoids and synthetic analogues, initial encounter; E11.9 Type 2 diabetes mellitus without complications; Z95.0 Presence of cardiac pacemaker; Z79.899 Other long term (current) drug therapy; Z87.891 Personal history of nicotine dependence; Z99.81 Dependence on supplemental oxygen; Z51.5 Encounter for palliative care; Z79.01 Long term (current) use of anticoagulants; Z82.49 Family history of ischemic heart disease and other diseases of the circulatory system; Y92.89 Other specified places as the place of occurrence of the external cause
CPT/HCPCS: 36415; 36600; 71045; 73130; 76604; 80048; 80053; 82375; 82550; 82553; 82805; 82962; 83036; 83880; 84484; 85025; 87426; 93005; 93880; 93971; 94640; 94660; 94664; 99285; C9803; J1815; J1956; J2270; J2405; J2920; J2930

== ENCOUNTER 2022-03-06 19:05 | Inpatient (IN) | payer MEDICARE, MEDICAID ==
[~2022-03-06] VITALS: Ht 162.6 cm; Wt 102.5 kg
[2022-03-06] MEDS: ALBUTEROL (0.083%) 2.5MG/3ML NEB HHN SCH ×3 (00:25→23:55)
[~2022-03-06 19:05] MED LIST changes: +ESCI20TA PO; -ESCI5TAB16 MT; +GLIM2TAB30 PO; -GLIM4TAB36 MT
[2022-03-06] MEDS ORDERED: IPRATROPIUM BROMIDE (0.02%) 0.5MG/2.5ML NEB HHN STA (19:19)
[2022-03-06] MEDS ORDERED: METHYLPREDNISOLONE SOD SUCC 125 MG/2 ML VIAL IV STA (19:19)
[2022-03-06] MEDS ORDERED: FUROSEMIDE 40MG/4ML VIAL IVP ONE (19:30)
[2022-03-06] MEDS ORDERED: MAGNESIUM 2 G PREMIX 50 ML IV ONE (19:30)
[2022-03-06 20:26] LABS: CHLORIDE 105 mEq/L (98-107)
[2022-03-06 20:28] LABS: BASOPHILS % 0.1 % (0.0-2.0); EOSINOPHILS % 0.8 % (0.0-5.0); HEMATOCRIT. 30.7 % (36.0-48.0); HEMOGLOBIN. 9.8 g/dL (12.0-16.0); LYMPHOCYTES % 16.8 % (20.0-50.0); MEAN CORPUSCULAR HEMOGLOBIN 23.8 pg (28.0-32.0); MEAN CORPUSCULAR VOLUME 74.5 fL (81.0-99.0); MEAN PLATELET VOLUME 8.6 fl (7.4-10.4); MONOCYTES % 8.4 % (2.0-8.0); NEUTROPHILS % 73.9 % (40.0-76.0); PLATELET 115 x1000/uL (130-400); RED BLOOD CELL COUNT 4.12 mill/uL (4.2-5.4); RED CELL DISTRIBUTION WIDTH 20.3 % (11.6-14.6)
[2022-03-06] MEDS ORDERED: HYDROCODONE/ACETAMINOPHEN 5/325MG TABLET PO ONE (20:30)
[2022-03-06] MEDS ORDERED: IPRATROPIUM BROMIDE (0.02%) 0.5MG/2.5ML NEB HHN NR (23:30)
[2022-03-06] MEDS ORDERED: MAGNESIUM 2 G PREMIX 50 ML IV NR (23:30)
[2022-03-06] MEDS ORDERED: METHYLPREDNISOLONE SOD SUCC 125 MG/2 ML VIAL IV NR (23:30)
[2022-03-06] MEDS ORDERED: FUROSEMIDE 40MG/4ML VIAL IVP NR (23:30)
[2022-03-06] MEDS ORDERED: HYDROCODONE/ACETAMINOPHEN 5/325MG TABLET PO NR (23:30)
[2022-03-07 08:54] VITALS: BP 160/73
[2022-03-07] MEDS ORDERED: FUROSEMIDE 40MG/4ML VIAL IV SCH (09:45)
[2022-03-07] MEDS ORDERED: ONDANSETRON HCL 4MG/2ML INJ IV PRN (09:45)
[2022-03-07] MEDS ORDERED: IPRATROPIUM/ALBUTEROL 0.5-3(2.5)MG/3ML NEB HHN PRN (09:45)
[2022-03-07] MEDS ORDERED: CLONIDINE 0.1MG TABLET PO PRN (09:45)
[2022-03-07] MEDS ORDERED: ACETAMINOPHEN 325MG TABLET PO PRN (09:45)
[2022-03-07] MEDS ORDERED: DIPHENHYDRAMINE 50MG/ML VIAL IV PRN (09:45)
[2022-03-07] MEDS ORDERED: DEXTROSE 50% WATER 50ML SYRINGE IV PRN (10:00)
[2022-03-07 11:34] VITALS: BP 142/78
[2022-03-07] MEDS: POTASSIUM CHLORIDE 20MEQ TABLET SR PO SCH ×2 (11:42→16:45)
[2022-03-07] MEDS: DILTIAZEM HCL 60MG TABLET PO SCH ×2 (11:42→16:47)
[2022-03-07] MEDS: INSULIN LISPRO 100 UNITS/ML SUBCUT SCH ×3 (11:42→21:07)
[2022-03-07] MEDS: BLOOD SUGAR DIAGNOSTIC STRIP TEST SCH ×3 (11:43→20:50)
[2022-03-07] MEDS ORDERED: ENOXAPARIN 40MG/0.4ML SYR SUBCUT SCH (12:00)
[2022-03-07] MEDS ORDERED: HYDROCODONE/ACETAMINOPHEN 5/325MG TABLET PO PRN (12:00)
[2022-03-07] MEDS ORDERED: NALOXONE HCL 0.4MG/ML VIAL IV PRN ×2 (12:15→18:15)
[2022-03-07] MEDS: IPRATROPIUM/ALBUTEROL 0.5-3(2.5)MG/3ML NEB HHN SCH ×2 (14:43→21:51)
[2022-03-07 15:41] VITALS: BP 126/74
[2022-03-07] MEDS: FUROSEMIDE 40MG/4ML VIAL IV SCH (16:45)
[2022-03-07] MEDS: HYDROCODONE/ACETAMINOPHEN 5/325MG TABLET PO PRN (19:02)
[2022-03-07 20:00] VITALS: BP 111/51
[2022-03-07] MEDS: ENOXAPARIN 30MG/0.3ML SYR SUBCUT SCH (21:06)
[2022-03-08] VITALS: BP 118/61
[2022-03-08] MEDS: DILTIAZEM HCL 60MG TABLET PO SCH ×5 (00:09→23:59)
[2022-03-08] MEDS: IPRATROPIUM/ALBUTEROL 0.5-3(2.5)MG/3ML NEB HHN SCH ×4 (01:04→20:28)
[2022-03-08] MEDS: HYDROCODONE/ACETAMINOPHEN 5/325MG TABLET PO PRN ×4 (01:21→19:53)
[2022-03-08 04:00] VITALS: BP 127/79
[2022-03-08] MEDS: BLOOD SUGAR DIAGNOSTIC STRIP TEST SCH ×3 (06:15→20:49)
[2022-03-08] MEDS: FUROSEMIDE 40MG/4ML VIAL IV SCH ×2 (06:27→18:34)
[2022-03-08] MEDS: INSULIN LISPRO 100 UNITS/ML SUBCUT SCH ×4 (06:29→20:56)
[2022-03-08] MEDS: ENOXAPARIN 30MG/0.3ML SYR SUBCUT SCH ×2 (08:19→20:54)
[2022-03-08] MEDS: POTASSIUM CHLORIDE 20MEQ TABLET SR PO SCH ×2 (08:21→18:30)
[2022-03-08 09:15] LABS: HEMATOCRIT. 30.5 % (36.0-48.0); HEMOGLOBIN. 9.7 g/dL (12.0-16.0); MEAN CORPUSCULAR HEMOGLOBIN 23.7 pg (28.0-32.0); MEAN CORPUSCULAR VOLUME 74.7 fL (81.0-99.0); PLATELET 164 x1000/uL (130-400); RED BLOOD CELL COUNT 4.09 mill/uL (4.2-5.4); RED CELL DISTRIBUTION WIDTH 20.8 % (11.6-14.6)
[2022-03-08 09:19] LABS: CHLORIDE 98 mEq/L (98-107)
[2022-03-08] MEDS ORDERED: IPRATROPIUM/ALBUTEROL 0.5-3(2.5)MG/3ML NEB HHN PRN (09:45)
[2022-03-08] MEDS ORDERED: NON FORMULARY PATIENT HOME MED XX SCH (10:00)
[2022-03-08 10:05] LABS: PLATELET ESTIMATE NORMAL
[2022-03-08 10:13] LABS: BG BASE EXCESS 8.9 mmol/L (-2.0-2.0); BG CARBOXYHEMOGLOBIN 0.3 % (0.5-1.5); BG DEOXYHEMOGLOBIN 9.9 % (0.0-5.0); BG HCO3 ACT 32.8 mmol/L (22.0-26.0); BG METHEMOGLOBIN 0.5 % (0.0-1.5); BG OXYHEMOGLOBIN 89.3 % (94.0-97.0); BG PCO2 41.9 mmHg (35.0-45.0); BG PH 7.511 (7.350-7.450); BG PO2 58.5 mmHg (75.0-100.0); BG SAMPLE SITE RIGHT RADIAL; BG VENT MODE ROOM AIR
[2022-03-08] MEDS: BUDESONIDE 0.5MG/2ML NEB HHN SCH ×2 (14:03→20:28)
[2022-03-08 20:00] VITALS: BP 130/74
[2022-03-09] VITALS: BP 119/71
[2022-03-09] MEDS: IPRATROPIUM/ALBUTEROL 0.5-3(2.5)MG/3ML NEB HHN SCH ×5 (01:02→21:15)
[2022-03-09 04:00] VITALS: BP 123/69
[2022-03-09] MEDS: HYDROCODONE/ACETAMINOPHEN 5/325MG TABLET PO PRN ×4 (04:24→21:05)
[2022-03-09] MEDS: DILTIAZEM HCL 60MG TABLET PO SCH ×3 (05:30→18:25)
[2022-03-09] MEDS: FUROSEMIDE 40MG/4ML VIAL IV SCH ×2 (06:10→18:24)
[2022-03-09] MEDS: BLOOD SUGAR DIAGNOSTIC STRIP TEST SCH ×4 (06:10→21:00)
[2022-03-09] MEDS: INSULIN LISPRO 100 UNITS/ML SUBCUT SCH ×4 (06:11→22:06)
[2022-03-09 06:17] LABS: CHLORIDE 95 mEq/L (98-107)
[2022-03-09 06:18] LABS: BASOPHILS % 0.2 % (0.0-2.0); HEMATOCRIT. 29.9 % (36.0-48.0); HEMOGLOBIN. 9.7 g/dL (12.0-16.0); LYMPHOCYTES % 18.7 % (20.0-50.0); MEAN CORPUSCULAR VOLUME 74.3 fL (81.0-99.0); MONOCYTES % 8.5 % (2.0-8.0); NEUTROPHILS % 70.6 % (40.0-76.0); PLATELET 164 x1000/uL (130-400); RED BLOOD CELL COUNT 4.02 mill/uL (4.2-5.4)
[2022-03-09 08:00] VITALS: BP 132/74
[2022-03-09] MEDS: BUDESONIDE 0.5MG/2ML NEB HHN SCH ×2 (08:29→21:15)
[2022-03-09] MEDS: POTASSIUM CHLORIDE 20MEQ TABLET SR PO SCH ×2 (09:15→18:25)
[2022-03-09] MEDS: ENOXAPARIN 30MG/0.3ML SYR SUBCUT SCH ×2 (09:18→21:10)
[2022-03-09] MEDS ORDERED: POTASSIUM CHLORIDE 20MEQ TABLET SR PO NR (10:00)
[2022-03-09] MEDS: SPIRONOLACTONE 25MG TABLET PO SCH (11:10)
[2022-03-09 12:56] VITALS: BP 123/72
[2022-03-09] MEDS ORDERED: DILT240C91 MT (13:19)
[2022-03-09 16:00] VITALS: BP 114/54
[2022-03-09] MEDS ORDERED: IPRA3AMP9 NEB (17:52)
[2022-03-09 20:00] VITALS: BP 128/70
[2022-03-10] VITALS: BP 138/72
[2022-03-10] MEDS: HYDROCODONE/ACETAMINOPHEN 5/325MG TABLET PO PRN ×4 (01:34→15:20)
[2022-03-10] MEDS: DILTIAZEM HCL 60MG TABLET PO SCH ×3 (01:34→13:19)
[2022-03-10] MEDS: IPRATROPIUM/ALBUTEROL 0.5-3(2.5)MG/3ML NEB HHN SCH ×3 (01:50→14:08)
[2022-03-10 04:00] VITALS: BP 129/67
[2022-03-10 07:00] LABS: BASOPHILS % 0.2 % (0.0-2.0); EOSINOPHILS % 3.2 % (0.0-5.0); HEMATOCRIT. 30.9 % (36.0-48.0); HEMOGLOBIN. 9.9 g/dL (12.0-16.0); MEAN CORPUSCULAR HEMOGLOBIN 23.7 pg (28.0-32.0); MEAN CORPUSCULAR VOLUME 74.3 fL (81.0-99.0); MEAN PLATELET VOLUME 7.8 fl (7.4-10.4); MONOCYTES % 9.8 % (2.0-8.0); NEUTROPHILS % 67.8 % (40.0-76.0); PLATELET 200 x1000/uL (130-400); RED BLOOD CELL COUNT 4.16 mill/uL (4.2-5.4); RED CELL DISTRIBUTION WIDTH 20.2 % (11.6-14.6)
[2022-03-10] MEDS: FUROSEMIDE 40MG/4ML VIAL IV SCH (07:00)
[2022-03-10] MEDS: INSULIN LISPRO 100 UNITS/ML SUBCUT SCH ×3 (07:02→16:51)
[2022-03-10] MEDS: BLOOD SUGAR DIAGNOSTIC STRIP TEST SCH ×3 (07:10→16:50)
[2022-03-10 07:11] LABS: CHLORIDE 94 mEq/L (98-107)
[2022-03-10 08:00] VITALS: BP 146/51
[2022-03-10] MEDS: BUDESONIDE 0.5MG/2ML NEB HHN SCH (09:02)
[2022-03-10] MEDS ORDERED: ALBU18HF2 IH (09:04)
[2022-03-10] MEDS: POTASSIUM CHLORIDE 20MEQ TABLET SR PO SCH (09:49)
[2022-03-10] MEDS: ENOXAPARIN 30MG/0.3ML SYR SUBCUT SCH (09:49)
[2022-03-10] MEDS: SPIRONOLACTONE 25MG TABLET PO SCH (09:49)
[2022-03-10] MEDS ORDERED: MAGNESIUM GLUCONATE 500MG TABLET PO NR (10:00)
[2022-03-10 12:00] VITALS: BP 144/85
[2022-03-10 13:55] VITALS: BP 144/85
[2022-03-10 16:00] VITALS: BP 149/81
== END 2022-03-10 17:00 | disposition home or self-care (01) | DRG 291 ==
LOC: ER 19:05 → 8WST 03-07 00:45 → EDBEDREQ 03-07 00:48 → EDBEDREQTM 03-07 00:48 → ENRESERV 03-07 06:11
PROVIDERS: ADMIT Internal Medicine; ATTEND Internal Medicine
PROC: 5A09357 Assistance with Respiratory Ventilation, Less than 24 Consecutive Hours, Continuous Positive Airway Pressure (ICD-10-PCS; principal; 2022-03-09)
PROC: 5A09357 Assistance with Respiratory Ventilation, Less than 24 Consecutive Hours, Continuous Positive Airway Pressure (ICD-10-PCS; 2022-03-10)
DX: I11.0 Hypertensive heart disease with heart failure (principal); J96.21 Acute and chronic respiratory failure with hypoxia; I48.20 Chronic atrial fibrillation, unspecified; J44.1 Chronic obstructive pulmonary disease with (acute) exacerbation; Z68.41 Body mass index [BMI] 40.0-44.9, adult; I48.92 Unspecified atrial flutter; I50.9 Heart failure, unspecified; I27.81 Cor pulmonale (chronic); E66.09 Other obesity due to excess calories; G47.33 Obstructive sleep apnea (adult) (pediatric); E87.6 Hypokalemia; D69.6 Thrombocytopenia, unspecified; I27.29 Other secondary pulmonary hypertension; M54.50 Low back pain, unspecified; I08.3 Combined rheumatic disorders of mitral, aortic and tricuspid valves; E11.9 Type 2 diabetes mellitus without complications; E78.5 Hyperlipidemia, unspecified; G89.29 Other chronic pain; Z79.52 Long term (current) use of systemic steroids; Z79.899 Other long term (current) drug therapy; Z87.891 Personal history of nicotine dependence; Z79.01 Long term (current) use of anticoagulants; Z99.81 Dependence on supplemental oxygen; Z90.710 Acquired absence of both cervix and uterus; Z98.41 Cataract extraction status, right eye; Z98.42 Cataract extraction status, left eye; Z95.0 Presence of cardiac pacemaker
CPT/HCPCS: 36415; 36600; 71045; 71046; 80048; 80053; 82375; 82805; 82962; 83036; 83735; 83880; 84484; 85025; 85379; 93005; 93306; 93970; 94640; 97162; 99285; C1893; J1650; J1815; J1940; J2930; J3475; J7626

== ENCOUNTER 2022-03-15 17:58 | Inpatient (IN) | payer MEDICARE, MEDICAID ==
[~2022-03-15] VITALS: Ht 162.6 cm; Wt 102.1 kg
[~2022-03-15 17:58] MED LIST changes: +ALBU18HF2 IH; +DILT240C91 MT; +IPRA3AMP9 NEB; -P20 PO
[2022-03-15] MEDS ORDERED: ASPIRIN 81MG TABLET PO NR (18:45)
[2022-03-15] MEDS ORDERED: NITROGLYCERIN 0.4MG TABLET SL SL PRN (18:45)
[2022-03-15] MEDS ORDERED: ASPIRIN 81MG TABLET PO ONE (18:45)
[2022-03-15] MEDS ORDERED: HYDROCODONE/ACETAMINOPHEN 5/325MG TABLET PO NR (19:30)
[2022-03-15] MEDS ORDERED: HYDROCODONE/ACETAMINOPHEN 5/325MG TABLET PO ONE (19:30)
[2022-03-15 23:03] LABS: BASOPHILS % 0.3 % (0.0-2.0); EOSINOPHILS % 0.1 % (0.0-5.0); HEMATOCRIT. 29.5 % (36.0-48.0); HEMOGLOBIN. 9.6 g/dL (12.0-16.0); LYMPHOCYTES % 11.5 % (20.0-50.0); MEAN CORPUSCULAR HEMOGLOBIN 23.8 pg (28.0-32.0); MEAN CORPUSCULAR VOLUME 73.5 fL (81.0-99.0); MEAN PLATELET VOLUME 7.3 fl (7.4-10.4); MONOCYTES % 2.9 % (2.0-8.0); NEUTROPHILS % 85.2 % (40.0-76.0); PLATELET 324 x1000/uL (130-400); RED BLOOD CELL COUNT 4.01 mill/uL (4.2-5.4); RED CELL DISTRIBUTION WIDTH 20.3 % (11.6-14.6)
[2022-03-15 23:09] LABS: CHLORIDE 106 mEq/L (98-107)
[2022-03-15] MEDS ORDERED: FUROSEMIDE 40MG/4ML VIAL IV NR (23:30)
[2022-03-15] MEDS ORDERED: NITROGLYCERIN 50MG PREMIX 250 ML IV NR ×2 (23:30→23:45)
[2022-03-16] MEDS ORDERED: ONDANSETRON HCL 4MG/2ML INJ IV PRN (09:15)
[2022-03-16] MEDS ORDERED: DIPHENHYDRAMINE 50MG/ML VIAL IV PRN (09:15)
[2022-03-16] MEDS ORDERED: CLONIDINE 0.1MG TABLET PO PRN (09:15)
[2022-03-16] MEDS ORDERED: IPRATROPIUM/ALBUTEROL 0.5-3(2.5)MG/3ML NEB HHN PRN (09:15)
[2022-03-16] MEDS ORDERED: ACETAMINOPHEN 325MG TABLET PO PRN (09:15)
[2022-03-16] MEDS ORDERED: NALOXONE HCL 0.4MG/ML VIAL IV PRN (11:30)
[2022-03-16 12:00] VITALS: BP_SYST 147; BP_SYST 160; BP_DIAS 74; BP_DIAS 89
[2022-03-16] MEDS: HYDROCODONE/ACETAMINOPHEN 10/325MG TABLET PO PRN ×3 (12:02→23:12)
[2022-03-16] MEDS: POTASSIUM CHLORIDE 20MEQ TABLET SR PO SCH (12:09)
[2022-03-16] MEDS: SPIRONOLACTONE 25MG TABLET PO SCH (12:10)
[2022-03-16] MEDS: DILTIAZEM HCL 30MG TABLET PO SCH ×2 (12:11→18:16)
[2022-03-16] MEDS: FUROSEMIDE 40MG/4ML VIAL IVP SCH (12:12)
[2022-03-16 16:00] VITALS: BP 118/63
[2022-03-16] MEDS: INSULIN LISPRO 100 UNITS/ML SUBCUT SCH ×2 (16:52→22:20)
[2022-03-16] MEDS: BLOOD SUGAR DIAGNOSTIC STRIP TEST SCH ×2 (17:03→21:00)
[2022-03-16 17:25] LABS: TOTAL IRON BINDING CAPACITY 486 ug/dL (250-450)
[2022-03-16] MEDS: APIXABAN 5 MG TABLET PO SCH (17:27)
[2022-03-16 20:00] VITALS: BP 131/78
[2022-03-17] VITALS (7 sets, daily range): BP systolic 110–137; BP diastolic 52–62
[2022-03-17] MEDS: DILTIAZEM HCL 30MG TABLET PO SCH ×2 (01:00→06:00)
[2022-03-17] MEDS: HYDROCODONE/ACETAMINOPHEN 10/325MG TABLET PO PRN ×4 (04:22→21:24)
[2022-03-17 06:50] LABS: HEMATOCRIT. 32.7 % (36.0-48.0); HEMOGLOBIN. 10.3 g/dL (12.0-16.0); MEAN CORPUSCULAR HEMOGLOBIN 23.8 pg (28.0-32.0); MEAN CORPUSCULAR VOLUME 75.9 fL (81.0-99.0); MEAN PLATELET VOLUME 7.7 fl (7.4-10.4); PLATELET 416 x1000/uL (130-400); RED BLOOD CELL COUNT 4.31 mill/uL (4.2-5.4)
[2022-03-17] MEDS: BLOOD SUGAR DIAGNOSTIC STRIP TEST SCH ×4 (07:10→21:23)
[2022-03-17 07:27] LABS: CHLORIDE 102 mEq/L (98-107)
[2022-03-17] MEDS: POTASSIUM CHLORIDE 20MEQ TABLET SR PO SCH (08:37)
[2022-03-17] MEDS: APIXABAN 5 MG TABLET PO SCH ×2 (08:38→17:04)
[2022-03-17] MEDS: SPIRONOLACTONE 25MG TABLET PO SCH (08:38)
[2022-03-17] MEDS: FUROSEMIDE 40MG/4ML VIAL IVP SCH (08:38)
[2022-03-17] MEDS: INSULIN LISPRO 100 UNITS/ML SUBCUT SCH ×4 (08:39→21:28)
[2022-03-17] MEDS: DILTIAZEM HCL 60MG TABLET PO SCH ×2 (11:21→17:04)
[2022-03-17 13:09] LABS: PLATELET ESTIMATE INCREASED
[2022-03-18] VITALS: BP 128/56
[2022-03-18] MEDS: DILTIAZEM HCL 60MG TABLET PO SCH ×2 (01:03→06:15)
[2022-03-18 04:00] VITALS: BP 144/80
[2022-03-18] MEDS: HYDROCODONE/ACETAMINOPHEN 10/325MG TABLET PO PRN ×2 (04:47→09:34)
[2022-03-18] MEDS: BLOOD SUGAR DIAGNOSTIC STRIP TEST SCH (06:16)
[2022-03-18] MEDS: INSULIN LISPRO 100 UNITS/ML SUBCUT SCH (06:37)
[2022-03-18 07:10] LABS: BASOPHILS % 0.4 % (0.0-2.0); EOSINOPHILS % 1.8 % (0.0-5.0); HEMATOCRIT. 31.6 % (36.0-48.0); HEMOGLOBIN. 9.9 g/dL (12.0-16.0); MEAN CORPUSCULAR HEMOGLOBIN 23.6 pg (28.0-32.0); MEAN CORPUSCULAR VOLUME 75.2 fL (81.0-99.0); MEAN PLATELET VOLUME 7.8 fl (7.4-10.4); MONOCYTES % 9.3 % (2.0-8.0); NEUTROPHILS % 66.5 % (40.0-76.0); PLATELET 425 x1000/uL (130-400); RED BLOOD CELL COUNT 4.21 mill/uL (4.2-5.4)
[2022-03-18 07:40] LABS: CHLORIDE 99 mEq/L (98-107)
[2022-03-18 08:00] VITALS: BP 112/58
[2022-03-18] MEDS: POTASSIUM CHLORIDE 20MEQ TABLET SR PO SCH (09:23)
[2022-03-18] MEDS: FUROSEMIDE 40MG/4ML VIAL IVP SCH (09:23)
[2022-03-18] MEDS: APIXABAN 5 MG TABLET PO SCH (09:24)
[2022-03-18] MEDS: SPIRONOLACTONE 25MG TABLET PO SCH (09:24)
[2022-03-18 10:07] VITALS: BP 112/58
== END 2022-03-18 11:35 | disposition home or self-care (01) | DRG 153 ==
LOC: ER 17:58 → 8WST 03-16 01:51 → EDBEDREQTM 03-16 01:53 → EDBEDREQ 03-16 01:53 → ENRESERV 03-16 07:10
PROVIDERS: ADMIT Internal Medicine; ATTEND Internal Medicine
PROC: 5A09357 Assistance with Respiratory Ventilation, Less than 24 Consecutive Hours, Continuous Positive Airway Pressure (ICD-10-PCS; principal; 2022-03-18)
DX: J06.9 Acute upper respiratory infection, unspecified (principal); I48.92 Unspecified atrial flutter; I48.20 Chronic atrial fibrillation, unspecified; J96.11 Chronic respiratory failure with hypoxia; J96.12 Chronic respiratory failure with hypercapnia; I42.9 Cardiomyopathy, unspecified; E11.9 Type 2 diabetes mellitus without complications; E66.9 Obesity, unspecified; E78.5 Hyperlipidemia, unspecified; J44.9 Chronic obstructive pulmonary disease, unspecified; D50.9 Iron deficiency anemia, unspecified; G47.33 Obstructive sleep apnea (adult) (pediatric); I11.0 Hypertensive heart disease with heart failure; I50.9 Heart failure, unspecified; I27.20 Pulmonary hypertension, unspecified; Z68.38 Body mass index [BMI] 38.0-38.9, adult; Z79.899 Other long term (current) drug therapy; Z79.01 Long term (current) use of anticoagulants; Z95.0 Presence of cardiac pacemaker; Z87.891 Personal history of nicotine dependence; Z90.710 Acquired absence of both cervix and uterus; Z99.81 Dependence on supplemental oxygen; Z98.42 Cataract extraction status, left eye; Z98.41 Cataract extraction status, right eye
CPT/HCPCS: 36415; 71045; 71250; 80053; 83880; 84484; 85025; 93005; 99285; J3490; 80048; 82962; 83036; 83540; 83550; 83735; 93970; 94640; 94660; J1815; J1940

== ENCOUNTER 2022-03-21 19:41 | Inpatient (IN) | payer MEDICARE, MEDICAID ==
[~2022-03-21] VITALS: Ht 167.6 cm; Wt 129.3 kg
[2022-03-21] MEDS ORDERED: IPRATROPIUM BROMIDE (0.02%) 0.5MG/2.5ML NEB HHN STA (20:04)
[2022-03-21] MEDS ORDERED: ALBUTEROL (0.083%) 2.5MG/3ML NEB HHN STA (20:04)
[2022-03-21] MEDS ORDERED: NITROGLYCERIN OINT 1GM/INCH UDPKT TD ONE (20:15)
[2022-03-21 21:12] LABS: BASOPHILS % 0.2 % (0.0-2.0); HEMATOCRIT. 29.2 % (36.0-48.0); HEMOGLOBIN. 9.5 g/dL (12.0-16.0); LYMPHOCYTES % 9.5 % (20.0-50.0); MEAN CORPUSCULAR HEMOGLOBIN 24.3 pg (28.0-32.0); MEAN PLATELET VOLUME 7.7 fl (7.4-10.4); NEUTROPHILS % 87.3 % (40.0-76.0); PLATELET 422 x1000/uL (130-400); RED BLOOD CELL COUNT 3.89 mill/uL (4.2-5.4)
[2022-03-21] MEDS ORDERED: HYDROCODONE/ACETAMINOPHEN 5/325MG TABLET PO ONE (21:15)
[2022-03-21 21:20] LABS: CHLORIDE 100 mEq/L (98-107)
[2022-03-21] MEDS ORDERED: HYDROCODONE/ACETAMINOPHEN 10/325MG TABLET PO ONE (22:15)
[2022-03-22] MEDS ORDERED: DEXTROSE 50% WATER 50ML SYRINGE IV PRN (04:45)
[2022-03-22] MEDS ORDERED: PIPERACILLIN/TAZ 3.375G PREMIX 50 ML IV NR (04:45)
[2022-03-22] MEDS: SODIUM CHLORIDE 0.45% 1000ML IV SCH ×3 (04:45→22:05)
[2022-03-22 05:15] LABS: BG BASE EXCESS -2.6 mmol/L (-2.0-2.0); BG CARBOXYHEMOGLOBIN 0.3 % (0.5-1.5); BG DEOXYHEMOGLOBIN 0.5 % (0.0-5.0); BG FRACTION INSPIRED OXYGEN 100; BG HCO3 ACT 21.8 mmol/L (22.0-26.0); BG METHEMOGLOBIN 0.3 % (0.0-1.5); BG OXYGEN SATURATION 99.5 % (92.0-98.5); BG OXYHEMOGLOBIN 98.9 % (94.0-97.0); BG PCO2 35.9 mmHg (35.0-45.0); BG PH 7.401 (7.350-7.450); BG PO2 269.1 mmHg (75.0-100.0); BG SAMPLE SITE RIGHT RADIAL; BG TOTAL HEMOGLOBIN 9.4 g/dL (12.0-18.0); BG VENT MODE MASK - NRB
[2022-03-22] MEDS ORDERED: VANCOMYCIN 2,000 MG in DEXT 5% WATER 500 ML IV NR (06:00)
[2022-03-22] MEDS ORDERED: PIPERACILLIN/TAZOBACTAM 3.375G in DEXT 5% WATER 50ML IV SCH ×2 (06:00→14:00)
[2022-03-22] MEDS ORDERED: NALOXONE HCL 0.4MG/ML VIAL IV PRN (07:15)
[2022-03-22] MEDS: BLOOD SUGAR DIAGNOSTIC STRIP TEST SCH ×4 (07:25→21:00)
[2022-03-22] MEDS: INSULIN LISPRO (HIGH DOSE) 100 UNITS/ML SUBCUT SCH ×4 (07:50→22:04)
[2022-03-22 08:00] VITALS: BP 149/87
[2022-03-22] MEDS ORDERED: LIDOCAINE HCL/PF 1% 2ML VIAL ONE (08:00)
[2022-03-22] MEDS: HYDROCODONE/ACETAMINOPHEN 5/325MG TABLET PO PRN ×3 (09:37→22:02)
[2022-03-22 12:00] VITALS: BP 137/61
[2022-03-22] MEDS ORDERED: NON FORMULARY PATIENT HOME MED XX SCH ×4 (13:00)
[2022-03-22] MEDS: FUROSEMIDE 40MG/4ML VIAL IVP SCH (15:21)
[2022-03-22] MEDS: CITALOPRAM HYDROBROMIDE 10MG TABLET PO SCH (15:21)
[2022-03-22 16:00] VITALS: BP 103/45
[2022-03-22] MEDS: IPRATROPIUM/ALBUTEROL 0.5-3(2.5)MG/3ML NEB HHN SCH ×2 (16:47→21:05)
[2022-03-22] MEDS ORDERED: MORPHINE SULFATE 15MG TABLET SR PO SCH (17:00)
[2022-03-22] MEDS: APIXABAN 5 MG TABLET PO SCH (17:44)
[2022-03-22] MEDS: DOCUSATE SODIUM 100MG CAPSULE PO SCH (17:44)
[2022-03-22] MEDS: DILTIAZEM HCL 60MG TABLET PO SCH (17:44)
[2022-03-22] MEDS: FERROUS SULFATE 325MG TABLET PO SCH (17:44)
[2022-03-22 20:00] VITALS: BP 116/65
[2022-03-22] MEDS: INSULIN GLARGINE 100 UNITS/ML SUBCUT SCH (22:04)
[2022-03-23] VITALS: BP 109/52
[2022-03-23] MEDS: IPRATROPIUM/ALBUTEROL 0.5-3(2.5)MG/3ML NEB HHN SCH ×7 (00:40→23:49)
[2022-03-23 04:00] VITALS: BP 135/52
[2022-03-23] MEDS: DILTIAZEM HCL 60MG TABLET PO SCH ×4 (05:22→17:24)
[2022-03-23] MEDS: HYDROCODONE/ACETAMINOPHEN 5/325MG TABLET PO PRN ×3 (05:23→17:23)
[2022-03-23] MEDS: SODIUM CHLORIDE 0.45% 1000ML IV SCH (05:28)
[2022-03-23] MEDS: BLOOD SUGAR DIAGNOSTIC STRIP TEST SCH ×4 (06:54→21:00)
[2022-03-23] MEDS: INSULIN LISPRO (HIGH DOSE) 100 UNITS/ML SUBCUT SCH ×4 (07:50→22:13)
[2022-03-23 08:00] VITALS: BP 120/72
[2022-03-23] MEDS: DOCUSATE SODIUM 100MG CAPSULE PO SCH ×2 (09:00→16:09)
[2022-03-23] MEDS: POLYETHYLENE GLYCOL 3350 (17GM) 1 DOSE PACK PO SCH (09:00)
[2022-03-23] MEDS: INSULIN GLARGINE 100 UNITS/ML SUBCUT SCH ×2 (09:26→22:13)
[2022-03-23] MEDS: FUROSEMIDE 40MG/4ML VIAL IVP SCH ×2 (09:31→17:23)
[2022-03-23] MEDS: FERROUS SULFATE 325MG TABLET PO SCH ×3 (09:32→17:23)
[2022-03-23] MEDS: ASCORBIC ACID 500 MG TABLET PO SCH (09:32)
[2022-03-23] MEDS: CITALOPRAM HYDROBROMIDE 10MG TABLET PO SCH (09:32)
[2022-03-23] MEDS: POTASSIUM CHLORIDE 20MEQ TABLET SR PO SCH (09:33)
[2022-03-23] MEDS: METHIMAZOLE 5MG TABLET PO SCH (09:33)
[2022-03-23] MEDS: APIXABAN 5 MG TABLET PO SCH ×2 (09:33→17:22)
[2022-03-23] MEDS: MULTIVITAMINS,THER W-MINERALS TABLET PO SCH (09:33)
[2022-03-23] MEDS: SPIRONOLACTONE 25MG TABLET PO SCH (09:33)
[2022-03-23 11:25] VITALS: BP 141/72
[2022-03-23 16:00] VITALS: BP 103/52
[2022-03-23 20:00] VITALS: BP 102/49
[2022-03-24] VITALS (7 sets, daily range): BP systolic 103–157; BP diastolic 53–75
[2022-03-24] MEDS: DILTIAZEM HCL 60MG TABLET PO SCH ×4 (00:17→18:27)
[2022-03-24] MEDS: HYDROCODONE/ACETAMINOPHEN 5/325MG TABLET PO PRN ×3 (00:18→12:25)
[2022-03-24] MEDS: IPRATROPIUM/ALBUTEROL 0.5-3(2.5)MG/3ML NEB HHN SCH ×5 (03:48→20:36)
[2022-03-24] MEDS: BLOOD SUGAR DIAGNOSTIC STRIP TEST SCH ×4 (06:27→20:44)
[2022-03-24 08:26] LABS: HEMATOCRIT. 28.4 % (36.0-48.0); HEMOGLOBIN. 9.3 g/dL (12.0-16.0); MEAN CORPUSCULAR HEMOGLOBIN 24.5 pg (28.0-32.0); MEAN CORPUSCULAR VOLUME 74.5 fL (81.0-99.0); MEAN PLATELET VOLUME 7.7 fl (7.4-10.4); PLATELET 357 x1000/uL (130-400); RED BLOOD CELL COUNT 3.81 mill/uL (4.2-5.4); RED CELL DISTRIBUTION WIDTH 19.6 % (11.6-14.6)
[2022-03-24 08:42] LABS: CHLORIDE 102 mEq/L (98-107)
[2022-03-24] MEDS: DOCUSATE SODIUM 100MG CAPSULE PO SCH ×3 (09:00→16:51)
[2022-03-24] MEDS: POLYETHYLENE GLYCOL 3350 (17GM) 1 DOSE PACK PO SCH ×2 (09:00→09:18)
[2022-03-24] MEDS ORDERED: POTASSIUM CHLORIDE 20MEQ TABLET SR PO SCH (09:00)
[2022-03-24] MEDS: APIXABAN 5 MG TABLET PO SCH ×2 (09:18→16:42)
[2022-03-24] MEDS: MULTIVITAMINS,THER W-MINERALS TABLET PO SCH (09:19)
[2022-03-24] MEDS: ASCORBIC ACID 500 MG TABLET PO SCH (09:19)
[2022-03-24] MEDS: FERROUS SULFATE 325MG TABLET PO SCH ×3 (09:19→16:41)
[2022-03-24] MEDS: METHIMAZOLE 5MG TABLET PO SCH (09:20)
[2022-03-24] MEDS: INSULIN GLARGINE 100 UNITS/ML SUBCUT SCH ×2 (09:29→23:00)
[2022-03-24] MEDS: FUROSEMIDE 40MG/4ML VIAL IVP SCH ×2 (09:29→16:42)
[2022-03-24] MEDS: SPIRONOLACTONE 25MG TABLET PO SCH (09:29)
[2022-03-24] MEDS: CITALOPRAM HYDROBROMIDE 10MG TABLET PO SCH (09:31)
[2022-03-24] MEDS: POTASSIUM CHLORIDE 20MEQ TABLET SR PO SCH (09:32)
[2022-03-24] MEDS: INSULIN LISPRO (HIGH DOSE) 100 UNITS/ML SUBCUT SCH ×4 (09:41→21:10)
[2022-03-24 10:44] LABS: PLATELET ESTIMATE NORMAL
[2022-03-24] MEDS: HYDROCODONE/APAP 7.5/325MG 1 TAB TABLET PO PRN ×2 (16:50→22:58)
[2022-03-25] VITALS (15 sets, daily range): BP systolic 104–133; BP diastolic 49–84
[2022-03-25] MEDS: IPRATROPIUM/ALBUTEROL 0.5-3(2.5)MG/3ML NEB HHN SCH ×5 (03:59→20:13)
[2022-03-25] MEDS: BLOOD SUGAR DIAGNOSTIC STRIP TEST SCH ×4 (06:29→21:28)
[2022-03-25] MEDS: DILTIAZEM HCL 60MG TABLET PO SCH ×5 (06:29→23:35)
[2022-03-25] MEDS: HYDROCODONE/APAP 7.5/325MG 1 TAB TABLET PO PRN ×3 (07:00→16:14)
[2022-03-25 07:08] LABS: BASOPHILS % 0.1 % (0.0-2.0); HEMATOCRIT. 28.1 % (36.0-48.0); HEMOGLOBIN. 9.1 g/dL (12.0-16.0); LYMPHOCYTES % 17.2 % (20.0-50.0); MEAN CORPUSCULAR HEMOGLOBIN 23.8 pg (28.0-32.0); MEAN CORPUSCULAR VOLUME 73.4 fL (81.0-99.0); MEAN PLATELET VOLUME 7.6 fl (7.4-10.4); MONOCYTES % 8.2 % (2.0-8.0); NEUTROPHILS % 73.5 % (40.0-76.0); PLATELET 359 x1000/uL (130-400); RED BLOOD CELL COUNT 3.83 mill/uL (4.2-5.4); RED CELL DISTRIBUTION WIDTH 19.6 % (11.6-14.6)
[2022-03-25] MEDS: INSULIN LISPRO (HIGH DOSE) 100 UNITS/ML SUBCUT SCH ×4 (08:32→21:17)
[2022-03-25] MEDS: DOCUSATE SODIUM 100MG CAPSULE PO SCH ×2 (08:33→16:54)
[2022-03-25] MEDS: FERROUS SULFATE 325MG TABLET PO SCH ×3 (08:33→16:59)
[2022-03-25] MEDS: FUROSEMIDE 40MG/4ML VIAL IVP SCH ×2 (08:33→16:54)
[2022-03-25] MEDS: ASCORBIC ACID 500 MG TABLET PO SCH (08:33)
[2022-03-25] MEDS: MULTIVITAMINS,THER W-MINERALS TABLET PO SCH (08:33)
[2022-03-25] MEDS: APIXABAN 5 MG TABLET PO SCH ×2 (08:33→16:54)
[2022-03-25] MEDS: POTASSIUM CHLORIDE 20MEQ TABLET SR PO SCH (08:33)
[2022-03-25] MEDS: SPIRONOLACTONE 25MG TABLET PO SCH (08:33)
[2022-03-25] MEDS: POLYETHYLENE GLYCOL 3350 (17GM) 1 DOSE PACK PO SCH (08:33)
[2022-03-25] MEDS: AMBRISENTAN 10MG TAB PO SCH (08:34)
[2022-03-25 08:35] LABS: CHLORIDE 103 mEq/L (98-107)
[2022-03-25] MEDS ORDERED: POTASSIUM CHLORIDE 20MEQ TABLET SR PO NR (09:00)
[2022-03-25] MEDS ORDERED: NON FORMULARY PATIENT HOME MED PO SCH (09:00)
[2022-03-25] MEDS: INSULIN GLARGINE 100 UNITS/ML SUBCUT SCH ×2 (10:18→21:17)
[2022-03-25] MEDS: METHIMAZOLE 5MG TABLET PO SCH (10:19)
[2022-03-25] MEDS: CITALOPRAM HYDROBROMIDE 10MG TABLET PO SCH (10:19)
[2022-03-25] MEDS ORDERED: HYDROCODONE/ACETAMINOPHEN 5/325MG TABLET PO PRN (10:30)
[2022-03-25] MEDS ORDERED: MAGNESIUM 2 G PREMIX 50 ML IV NR ×2 (11:00→16:00)
[2022-03-26] VITALS (13 sets, daily range): BP systolic 97–152; BP diastolic 47–90
[2022-03-26] MEDS: IPRATROPIUM/ALBUTEROL 0.5-3(2.5)MG/3ML NEB HHN SCH ×6 (00:20→20:16)
[2022-03-26] MEDS: HYDROCODONE/APAP 7.5/325MG 1 TAB TABLET PO PRN ×5 (01:36→20:16)
[2022-03-26] MEDS: FERROUS SULFATE 325MG TABLET PO SCH ×3 (06:34→18:56)
[2022-03-26] MEDS: BLOOD SUGAR DIAGNOSTIC STRIP TEST SCH ×4 (06:36→21:00)
[2022-03-26] MEDS: DILTIAZEM HCL 60MG TABLET PO SCH ×3 (06:36→18:58)
[2022-03-26] MEDS: INSULIN LISPRO (HIGH DOSE) 100 UNITS/ML SUBCUT SCH ×4 (06:42→22:38)
[2022-03-26 07:11] LABS: BASOPHILS % 0.2 % (0.0-2.0); EOSINOPHILS % 1.1 % (0.0-5.0); HEMATOCRIT. 28.7 % (36.0-48.0); HEMOGLOBIN. 9.2 g/dL (12.0-16.0); LYMPHOCYTES % 16.6 % (20.0-50.0); MEAN CORPUSCULAR HEMOGLOBIN 23.7 pg (28.0-32.0); MEAN PLATELET VOLUME 7.8 fl (7.4-10.4); MONOCYTES % 8.2 % (2.0-8.0); NEUTROPHILS % 73.9 % (40.0-76.0); PLATELET 325 x1000/uL (130-400); RED BLOOD CELL COUNT 3.87 mill/uL (4.2-5.4); RED CELL DISTRIBUTION WIDTH 20.2 % (11.6-14.6)
[2022-03-26 07:36] LABS: CHLORIDE 98 mEq/L (98-107)
[2022-03-26] MEDS: AMBRISENTAN 10MG TAB PO SCH (09:00)
[2022-03-26] MEDS ORDERED: MAGNESIUM 2 G PREMIX 50 ML IV NR (10:00)
[2022-03-26] MEDS: POLYETHYLENE GLYCOL 3350 (17GM) 1 DOSE PACK PO SCH ×2 (10:09→11:14)
[2022-03-26] MEDS: MULTIVITAMINS,THER W-MINERALS TABLET PO SCH (10:09)
[2022-03-26] MEDS: SPIRONOLACTONE 25MG TABLET PO SCH (10:09)
[2022-03-26] MEDS: POTASSIUM CHLORIDE 20MEQ TABLET SR PO SCH (10:09)
[2022-03-26] MEDS: APIXABAN 5 MG TABLET PO SCH ×2 (10:09→18:56)
[2022-03-26] MEDS: DOCUSATE SODIUM 100MG CAPSULE PO SCH ×2 (10:09→18:56)
[2022-03-26] MEDS: ASCORBIC ACID 500 MG TABLET PO SCH (10:10)
[2022-03-26] MEDS: CITALOPRAM HYDROBROMIDE 10MG TABLET PO SCH (10:10)
[2022-03-26] MEDS: FUROSEMIDE 40MG/4ML VIAL IVP SCH ×2 (10:11→17:00)
[2022-03-26] MEDS: INSULIN GLARGINE 100 UNITS/ML SUBCUT SCH ×2 (10:20→23:20)
[2022-03-26] MEDS: METHIMAZOLE 5MG TABLET PO SCH (11:02)
[2022-03-27] VITALS (11 sets, daily range): BP systolic 110–147; BP diastolic 62–97
[2022-03-27] MEDS: IPRATROPIUM/ALBUTEROL 0.5-3(2.5)MG/3ML NEB HHN SCH ×6 (00:24→21:03)
[2022-03-27] MEDS: DILTIAZEM HCL 60MG TABLET PO SCH ×5 (06:00→23:56)
[2022-03-27] MEDS: HYDROCODONE/APAP 7.5/325MG 1 TAB TABLET PO PRN ×4 (06:38→19:45)
[2022-03-27 06:54] LABS: HEMATOCRIT. 28.7 % (36.0-48.0); HEMOGLOBIN. 9.4 g/dL (12.0-16.0); MEAN CORPUSCULAR HEMOGLOBIN 24.3 pg (28.0-32.0); MEAN CORPUSCULAR VOLUME 73.8 fL (81.0-99.0); MEAN PLATELET VOLUME 7.7 fl (7.4-10.4); PLATELET 316 x1000/uL (130-400); RED BLOOD CELL COUNT 3.89 mill/uL (4.2-5.4); RED CELL DISTRIBUTION WIDTH 20.4 % (11.6-14.6)
[2022-03-27] MEDS: BLOOD SUGAR DIAGNOSTIC STRIP TEST SCH ×4 (07:00→21:00)
[2022-03-27] MEDS: AMBRISENTAN 10MG TAB PO SCH (09:00)
[2022-03-27] MEDS: FERROUS SULFATE 325MG TABLET PO SCH ×3 (09:14→17:29)
[2022-03-27] MEDS: ASCORBIC ACID 500 MG TABLET PO SCH (09:14)
[2022-03-27] MEDS: POTASSIUM CHLORIDE 20MEQ TABLET SR PO SCH (09:14)
[2022-03-27] MEDS: DOCUSATE SODIUM 100MG CAPSULE PO SCH ×2 (09:14→17:29)
[2022-03-27] MEDS: FUROSEMIDE 40MG/4ML VIAL IVP SCH ×2 (09:14→17:29)
[2022-03-27] MEDS: SPIRONOLACTONE 25MG TABLET PO SCH (09:15)
[2022-03-27] MEDS: MULTIVITAMINS,THER W-MINERALS TABLET PO SCH (09:15)
[2022-03-27 09:27] LABS: PLATELET ESTIMATE NORMAL
[2022-03-27] MEDS: INSULIN LISPRO (HIGH DOSE) 100 UNITS/ML SUBCUT SCH ×4 (09:34→22:14)
[2022-03-27 09:36] LABS: CHLORIDE 95 mEq/L (98-107)
[2022-03-27] MEDS: APIXABAN 5 MG TABLET PO SCH ×2 (09:36→17:30)
[2022-03-27] MEDS: METHIMAZOLE 5MG TABLET PO SCH (09:36)
[2022-03-27] MEDS: INSULIN GLARGINE 100 UNITS/ML SUBCUT SCH ×2 (10:00→22:13)
[2022-03-27] MEDS: CITALOPRAM HYDROBROMIDE 10MG TABLET PO SCH (11:17)
[2022-03-28] VITALS (7 sets, daily range): BP systolic 108–139; BP diastolic 67–85
[2022-03-28] MEDS: IPRATROPIUM/ALBUTEROL 0.5-3(2.5)MG/3ML NEB HHN SCH ×5 (00:09→16:41)
[2022-03-28] MEDS: HYDROCODONE/APAP 7.5/325MG 1 TAB TABLET PO PRN ×4 (04:32→15:30)
[2022-03-28] MEDS: BLOOD SUGAR DIAGNOSTIC STRIP TEST SCH ×3 (06:50→16:33)
[2022-03-28] MEDS: DILTIAZEM HCL 60MG TABLET PO SCH ×2 (07:57→12:51)
[2022-03-28] MEDS: FERROUS SULFATE 325MG TABLET PO SCH ×3 (08:32→16:33)
[2022-03-28] MEDS: INSULIN LISPRO (HIGH DOSE) 100 UNITS/ML SUBCUT SCH ×3 (08:33→16:34)
[2022-03-28] MEDS: MULTIVITAMINS,THER W-MINERALS TABLET PO SCH (09:31)
[2022-03-28] MEDS: ASCORBIC ACID 500 MG TABLET PO SCH (09:31)
[2022-03-28] MEDS: METHIMAZOLE 5MG TABLET PO SCH (09:31)
[2022-03-28] MEDS: APIXABAN 5 MG TABLET PO SCH ×2 (09:32→16:33)
[2022-03-28] MEDS: SPIRONOLACTONE 25MG TABLET PO SCH (09:32)
[2022-03-28] MEDS: POTASSIUM CHLORIDE 20MEQ TABLET SR PO SCH (09:32)
[2022-03-28] MEDS: DOCUSATE SODIUM 100MG CAPSULE PO SCH ×2 (09:32→16:33)
[2022-03-28] MEDS: FUROSEMIDE 40MG/4ML VIAL IVP SCH ×2 (09:34→16:33)
[2022-03-28] MEDS: CITALOPRAM HYDROBROMIDE 10MG TABLET PO SCH (09:34)
[2022-03-28] MEDS: AMBRISENTAN 10MG TAB PO SCH (09:35)
[2022-03-28] MEDS: INSULIN GLARGINE 100 UNITS/ML SUBCUT SCH (10:43)
[2022-03-28] MEDS: POLYETHYLENE GLYCOL 3350 (17GM) 1 DOSE PACK PO SCH (15:31)
== END 2022-03-28 17:50 | DRG 291 ==
LOC: ER 19:41 → MICUSO 03-22 01:02 → 6WST 03-22 05:18 → 3WST 03-24 21:36
PROVIDERS: ADMIT Internal Medicine; ATTEND Internal Medicine
DX: I11.0 Hypertensive heart disease with heart failure (principal); I50.33 Acute on chronic diastolic (congestive) heart failure; J96.21 Acute and chronic respiratory failure with hypoxia; J96.22 Acute and chronic respiratory failure with hypercapnia; Z68.42 Body mass index [BMI] 45.0-49.9, adult; I48.20 Chronic atrial fibrillation, unspecified; I48.92 Unspecified atrial flutter; I27.21 Secondary pulmonary arterial hypertension; E66.9 Obesity, unspecified; E11.65 Type 2 diabetes mellitus with hyperglycemia; D50.9 Iron deficiency anemia, unspecified; J44.9 Chronic obstructive pulmonary disease, unspecified; E78.5 Hyperlipidemia, unspecified; Z20.822 Contact with and (suspected) exposure to COVID-19; Z79.4 Long term (current) use of insulin; Z79.01 Long term (current) use of anticoagulants; Z99.81 Dependence on supplemental oxygen; Z90.710 Acquired absence of both cervix and uterus; Z95.0 Presence of cardiac pacemaker; Z87.891 Personal history of nicotine dependence
CPT/HCPCS: 36415; 36600; 71045; 80048; 80053; 82375; 82805; 82962; 83735; 83880; 84484; 85025; 87426; 93005; 94640; 99285; J1815; J1940; J2543; J3370; J3475; J3490; J7060

== ENCOUNTER 2022-08-31 19:07 | Inpatient (IN) | payer MEDICARE, MEDICAID ==
[~2022-08-31] VITALS: Ht 162.6 cm; Wt 108.9 kg
[2022-08-31] MEDS ORDERED: IPRATROPIUM BROMIDE (0.02%) 0.5MG/2.5ML NEB HHN STA (20:06)
[2022-08-31] MEDS ORDERED: METHYLPREDNISOLONE SOD SUCC 125 MG/2 ML VIAL IV STA (20:06)
[2022-08-31] MEDS ORDERED: FUROSEMIDE 40MG/4ML VIAL IV ONE (20:15)
[2022-08-31 20:29] LABS: BASOPHILS % 0.3 % (0.0-2.0); HEMATOCRIT. 29.1 % (36.0-48.0); HEMOGLOBIN. 9.1 g/dL (12.0-16.0); LYMPHOCYTES % 18.2 % (20.0-50.0); MEAN CORPUSCULAR HEMOGLOBIN 24.4 pg (28.0-32.0); MEAN CORPUSCULAR VOLUME 78.4 fL (81.0-99.0); MEAN PLATELET VOLUME 7.8 fl (7.4-10.4); NEUTROPHILS % 67.5 % (40.0-76.0); PLATELET 245 x1000/uL (130-400); RED BLOOD CELL COUNT 3.71 mill/uL (4.2-5.4); RED CELL DISTRIBUTION WIDTH 18.4 % (11.6-14.6)
[2022-08-31] MEDS ORDERED: ALBUTEROL (0.083%) 2.5MG/3ML NEB HHN SCH (20:30)
[2022-08-31 20:34] LABS: CHLORIDE 104 mEq/L (98-107)
[2022-08-31] MEDS ORDERED: HYDROCODONE/ACETAMINOPHEN 7.5/325MG TABLET PO ONE (21:30)
[2022-08-31] MEDS ORDERED: IPRATROPIUM/ALBUTEROL 0.5-3(2.5)MG/3ML NEB HHN PRN (23:00)
[2022-08-31] MEDS ORDERED: BUDESONIDE 0.5MG/2ML NEB HHN SCH ×2 (23:00→23:30)
[2022-08-31] MEDS ORDERED: CLONIDINE 0.1MG TABLET PO PRN (23:30)
[2022-08-31] MEDS ORDERED: ACETAMINOPHEN 325MG TABLET PO PRN ×2 (23:30)
[2022-08-31] MEDS ORDERED: AZITHROMYCIN 500MG/250ML 250 ML IV SCH (23:30)
[2022-08-31] MEDS ORDERED: ZOLPIDEM TARTRATE 5MG TABLET PO PRN (23:30)
[2022-08-31] MEDS ORDERED: IPRATROPIUM/ALBUTEROL 0.5-3(2.5)MG/3ML NEB HHN SCH (23:30)
[2022-08-31] MEDS ORDERED: ONDANSETRON HCL 4MG/2ML INJ IV PRN (23:30)
[2022-08-31] MEDS ORDERED: ENOXAPARIN 40MG/0.4ML SYR SUBCUT SCH (23:37)
[2022-08-31 23:48] LABS: D-DIMER 0.75 mg/L FEU (<0.50); PROTHROMBIN TIME 10.4 sec (9.6-11.0)
[2022-09-01 00:02] LABS: PHOSPHORUS 3.7 mg/dL (2.5-4.9)
[2022-09-01] MEDS: IPRATROPIUM/ALBUTEROL 0.5-3(2.5)MG/3ML NEB HHN SCH ×3 (00:28→09:34)
[2022-09-01 00:47] LABS: VITAMIN B12 SERUM 978 pg/mL (211-911)
[2022-09-01 01:19] LABS: BG CARBOXYHEMOGLOBIN 0.2 % (0.5-1.5); BG DEOXYHEMOGLOBIN 1.7 % (0.0-5.0); BG FRACTION INSPIRED OXYGEN 100; BG HCO3 ACT 25.1 mmol/L (22.0-26.0); BG METHEMOGLOBIN 0.2 % (0.0-1.5); BG OXYGEN SATURATION 98.3 % (92.0-98.5); BG OXYHEMOGLOBIN 97.9 % (94.0-97.0); BG PH 7.384 (7.350-7.450); BG PO2 125.4 mmHg (75.0-100.0); BG SAMPLE SITE RIGHT RADIAL; BG TOTAL HEMOGLOBIN 9.4 g/dL (12.0-18.0); BG VENT MODE MASK - NRB
[2022-09-01] MEDS: METHYLPREDNISOLONE SOD SUCC 125 MG/2 ML VIAL IV SCH ×3 (01:35→11:50)
[2022-09-01] MEDS: HYDROCODONE/ACETAMINOPHEN 7.5/325MG TABLET PO PRN ×5 (02:09→22:46)
[2022-09-01 05:26] VITALS: BP 155/68
[2022-09-01] MEDS: INSULIN LISPRO 100 UNITS/ML SUBCUT SCH ×3 (05:51→17:33)
[2022-09-01] MEDS ORDERED: INSULIN LISPRO 100 UNITS/ML SUBCUT SCH (06:30)
[2022-09-01] MEDS: FERROUS SULFATE 325MG TABLET PO SCH ×3 (06:55→17:32)
[2022-09-01] MEDS ORDERED: MEDICATION NOT ON FORMULARY EA (Ferrous Sulfate 325 MG) PO SCH (07:00)
[2022-09-01 07:50] LABS: HEMATOCRIT. 28.6 % (36.0-48.0); HEMOGLOBIN. 9.1 g/dL (12.0-16.0); MEAN CORPUSCULAR HEMOGLOBIN 24.8 pg (28.0-32.0); MEAN CORPUSCULAR VOLUME 78.3 fL (81.0-99.0); MEAN PLATELET VOLUME 7.8 fl (7.4-10.4); PLATELET 262 x1000/uL (130-400); RED BLOOD CELL COUNT 3.65 mill/uL (4.2-5.4); RED CELL DISTRIBUTION WIDTH 18.2 % (11.6-14.6)
[2022-09-01 08:00] VITALS: BP 171/85
[2022-09-01 08:10] LABS: CHLORIDE 102 mEq/L (98-107)
[2022-09-01 08:45] LABS: CREATINE KINASE 41 IU/L (26-192); CREATINE KINASE MB FRACTION 1.5 ng/mL (0.5-3.6); HDL CHOLESTEROL 45 mg/dL (40-59); LDL CHOLESTEROL 75 mg/dL (5-100); T4 FREE 0.86 ng/dL (0.76-1.46)
[2022-09-01 08:46] LABS: FERRITIN 32 ng/mL (10-291)
[2022-09-01] MEDS ORDERED: VILANTER INH SCH (09:00)
[2022-09-01] MEDS ORDERED: UMECLIDIN INH SCH (09:00)
[2022-09-01] MEDS ORDERED: MEDICATION NOT ON FORMULARY EA (Multivitamin (Multi Vitamin Daily) 1 TAB) MT SCH (09:00)
[2022-09-01] MEDS ORDERED: [UNRECOGNIZED DRUG - OTHER] INH SCH (09:00)
[2022-09-01] MEDS ORDERED: MEDICATION NOT ON FORMULARY EA (Diltiazem Hcl (Cardizem Cd) 1 CAP) MT SCH (09:00)
[2022-09-01] MEDS ORDERED: FUROSEMIDE 40MG/4ML VIAL IV SCH (09:00)
[2022-09-01] MEDS ORDERED: MULTIVITAMINS,THER W-MINERALS TABLET PO SCH (09:00)
[2022-09-01] MEDS ORDERED: MEDICATION NOT ON FORMULARY EA (Escitalopram Oxalate (Lexapro) 20 MG) PO SCH (09:00)
[2022-09-01] MEDS ORDERED: FLUTICASONE INH SCH (09:00)
[2022-09-01] MEDS ORDERED: MEDICATION NOT ON FORMULARY EA (Insulin Glargine,Hum.rec.anlog (Lantus Solostar) 25 UNIT SQ SCH (09:00)
[2022-09-01] MEDS: POLYETHYLENE GLYCOL 3350 (17GM) 1 DOSE PACK PO SCH (09:08)
[2022-09-01] MEDS: PANTOPRAZOLE SODIUM 40 MG/VIAL IV SCH (09:08)
[2022-09-01] MEDS: DOCUSATE SODIUM 100MG CAPSULE PO SCH ×2 (09:08→17:00)
[2022-09-01] MEDS: APIXABAN 5 MG TABLET PO SCH ×2 (09:08→17:32)
[2022-09-01] MEDS: CITALOPRAM HYDROBROMIDE 10MG TABLET PO SCH (09:08)
[2022-09-01] MEDS: POTASSIUM CHLORIDE 20MEQ TABLET SR PO SCH (09:09)
[2022-09-01] MEDS: SPIRONOLACTONE 25MG TABLET PO SCH (09:09)
[2022-09-01] MEDS: LINAGLIPTIN 5MG TABLET PO SCH (09:09)
[2022-09-01] MEDS: DILTIAZEM HCL 120MG CAPSULE ER 24HR PO SCH (09:10)
[2022-09-01] MEDS: METHIMAZOLE 5MG TABLET PO SCH (09:17)
[2022-09-01] MEDS ORDERED: ALBUTEROL (0.083%) 2.5MG/3ML NEB HHN PRN (10:00)
[2022-09-01] MEDS ORDERED: IPRATROPIUM BROMIDE (0.02%) 0.5MG/2.5ML NEB HHN PRN (10:00)
[2022-09-01] MEDS: INSULIN GLARGINE 100 UNITS/ML SUBCUT SCH ×2 (10:31→22:43)
[2022-09-01 10:38] LABS: PLATELET ESTIMATE NORMAL
[2022-09-01 12:00] VITALS: BP 114/52
[2022-09-01] MEDS ORDERED: ALBUTEROL (0.083%) 2.5MG/3ML NEB HHN SCH (12:00)
[2022-09-01] MEDS ORDERED: IPRATROPIUM BROMIDE (0.02%) 0.5MG/2.5ML NEB HHN SCH (12:00)
[2022-09-01] MEDS: FLUTICASONE/VILANTEROL 200-25 BLST.W.DEV ORI SCH (12:27)
[2022-09-01] MEDS: UMECLIDINIUM BROMIDE 1 INH BLST.W.DEV IH SCH (12:28)
[2022-09-01] MEDS: GLIMEPIRIDE 2MG TABLET PO SCH (14:28)
[2022-09-01 16:00] VITALS: BP 104/68
[2022-09-01 16:54] LABS: CREATINE KINASE MB FRACTION 1.7 ng/mL (0.5-3.6)
[2022-09-01] MEDS: FUROSEMIDE 40MG/4ML VIAL IV SCH (17:32)
[2022-09-01] MEDS: ALBUTEROL (0.083%) 2.5MG/3ML NEB HHN SCH (19:58)
[2022-09-01 20:00] VITALS: BP 130/66
[2022-09-01] MEDS: IPRATROPIUM BROMIDE (0.02%) 0.5MG/2.5ML NEB HHN SCH (20:00)
[2022-09-01] MEDS ORDERED: MEDICATION NOT ON FORMULARY EA (Melatonin 1 TAB) MT SCH (21:00)
[2022-09-01] MEDS ORDERED: NETARSUDIL MESYLATE EACHEYE SCH (21:00)
[2022-09-01] MEDS: METHYLPREDNISOLONE SOD SUCC 40 MG/ML VIAL IV SCH (22:45)
[2022-09-02] VITALS: BP 117/60
[2022-09-02] MEDS: ALBUTEROL (0.083%) 2.5MG/3ML NEB HHN SCH ×4 (01:42→20:42)
[2022-09-02] MEDS: IPRATROPIUM BROMIDE (0.02%) 0.5MG/2.5ML NEB HHN SCH ×4 (01:43→20:41)
[2022-09-02 04:00] VITALS: BP 149/62
[2022-09-02] MEDS: METHYLPREDNISOLONE SOD SUCC 40 MG/ML VIAL IV SCH ×3 (05:49→21:25)
[2022-09-02] MEDS: INSULIN LISPRO 100 UNITS/ML SUBCUT SCH ×3 (05:49→18:09)
[2022-09-02] MEDS: HYDROCODONE/ACETAMINOPHEN 7.5/325MG TABLET PO PRN ×4 (05:50→19:48)
[2022-09-02 07:41] LABS: HEMATOCRIT. 26.7 % (36.0-48.0); HEMOGLOBIN. 8.5 g/dL (12.0-16.0); MEAN CORPUSCULAR HEMOGLOBIN 24.6 pg (28.0-32.0); MEAN CORPUSCULAR VOLUME 77.5 fL (81.0-99.0); MEAN PLATELET VOLUME 8.1 fl (7.4-10.4); PLATELET 254 x1000/uL (130-400); RED BLOOD CELL COUNT 3.45 mill/uL (4.2-5.4); RED CELL DISTRIBUTION WIDTH 17.9 % (11.6-14.6)
[2022-09-02 07:55] LABS: CHLORIDE 102 mEq/L (98-107)
[2022-09-02 08:00] VITALS: BP 136/80
[2022-09-02] MEDS: POLYETHYLENE GLYCOL 3350 (17GM) 1 DOSE PACK PO SCH (09:00)
[2022-09-02] MEDS: DOCUSATE SODIUM 100MG CAPSULE PO SCH ×2 (09:00→17:00)
[2022-09-02] MEDS: FERROUS SULFATE 325MG TABLET PO SCH ×3 (10:12→18:07)
[2022-09-02] MEDS: PANTOPRAZOLE SODIUM 40 MG/VIAL IV SCH (10:12)
[2022-09-02] MEDS: FUROSEMIDE 40MG/4ML VIAL IV SCH ×2 (10:12→18:07)
[2022-09-02] MEDS: METHIMAZOLE 5MG TABLET PO SCH (10:13)
[2022-09-02] MEDS: GLIMEPIRIDE 2MG TABLET PO SCH (10:15)
[2022-09-02] MEDS: LINAGLIPTIN 5MG TABLET PO SCH (10:15)
[2022-09-02] MEDS: POTASSIUM CHLORIDE 20MEQ TABLET SR PO SCH (10:15)
[2022-09-02] MEDS: CITALOPRAM HYDROBROMIDE 10MG TABLET PO SCH (10:16)
[2022-09-02] MEDS: APIXABAN 5 MG TABLET PO SCH ×2 (10:16→18:08)
[2022-09-02] MEDS: SPIRONOLACTONE 25MG TABLET PO SCH (10:16)
[2022-09-02] MEDS: INSULIN GLARGINE 100 UNITS/ML SUBCUT SCH ×2 (10:22→21:30)
[2022-09-02] MEDS: UMECLIDINIUM BROMIDE 1 INH BLST.W.DEV IH SCH (10:34)
[2022-09-02] MEDS: DILTIAZEM HCL 120MG CAPSULE ER 24HR PO SCH (10:34)
[2022-09-02] MEDS: FLUTICASONE/VILANTEROL 200-25 BLST.W.DEV ORI SCH (10:35)
[2022-09-02 12:00] VITALS: BP 106/60
[2022-09-02 16:00] VITALS: BP 128/65
[2022-09-02] MEDS ORDERED: NALOXONE HCL 0.4MG/ML VIAL IV PRN (17:00)
[2022-09-02 18:26] LABS: PLATELET ESTIMATE NORMAL
[2022-09-02 20:00] VITALS: BP 139/71
[2022-09-03] VITALS: BP 125/75
[2022-09-03] MEDS: HYDROCODONE/ACETAMINOPHEN 7.5/325MG TABLET PO PRN ×6 (00:07→23:01)
[2022-09-03] MEDS: ALBUTEROL (0.083%) 2.5MG/3ML NEB HHN SCH ×4 (02:15→19:35)
[2022-09-03] MEDS: IPRATROPIUM BROMIDE (0.02%) 0.5MG/2.5ML NEB HHN SCH ×4 (02:15→19:34)
[2022-09-03 04:00] VITALS: BP 128/68
[2022-09-03] MEDS: METHYLPREDNISOLONE SOD SUCC 40 MG/ML VIAL IV SCH ×2 (06:08→14:13)
[2022-09-03] MEDS: FERROUS SULFATE 325MG TABLET PO SCH ×3 (06:08→17:37)
[2022-09-03] MEDS: FUROSEMIDE 40MG/4ML VIAL IV SCH ×2 (06:08→17:37)
[2022-09-03] MEDS: INSULIN LISPRO 100 UNITS/ML SUBCUT SCH ×3 (06:11→18:12)
[2022-09-03 06:16] LABS: BASOPHILS % 0.1 % (0.0-2.0); HEMATOCRIT. 25.8 % (36.0-48.0); HEMOGLOBIN. 8.3 g/dL (12.0-16.0); LYMPHOCYTES % 8.2 % (20.0-50.0); MEAN CORPUSCULAR HEMOGLOBIN 24.7 pg (28.0-32.0); MEAN CORPUSCULAR VOLUME 76.8 fL (81.0-99.0); MONOCYTES % 2.7 % (2.0-8.0); PLATELET 305 x1000/uL (130-400); RED BLOOD CELL COUNT 3.36 mill/uL (4.2-5.4); RED CELL DISTRIBUTION WIDTH 18.1 % (11.6-14.6)
[2022-09-03 07:04] LABS: CHLORIDE 101 mEq/L (98-107)
[2022-09-03 08:00] VITALS: BP 156/94
[2022-09-03] MEDS: DILTIAZEM HCL 120MG CAPSULE ER 24HR PO SCH (08:52)
[2022-09-03] MEDS: FAMOTIDINE 20MG TABLET PO SCH ×2 (08:52→17:37)
[2022-09-03] MEDS: POLYETHYLENE GLYCOL 3350 (17GM) 1 DOSE PACK PO SCH (08:52)
[2022-09-03] MEDS: DOCUSATE SODIUM 100MG CAPSULE PO SCH ×2 (08:52→17:37)
[2022-09-03] MEDS: SPIRONOLACTONE 25MG TABLET PO SCH (08:52)
[2022-09-03] MEDS: POTASSIUM CHLORIDE 20MEQ TABLET SR PO SCH (08:52)
[2022-09-03] MEDS: GLIMEPIRIDE 2MG TABLET PO SCH (08:53)
[2022-09-03] MEDS: APIXABAN 5 MG TABLET PO SCH ×2 (08:53→17:37)
[2022-09-03] MEDS: LINAGLIPTIN 5MG TABLET PO SCH (08:53)
[2022-09-03] MEDS: METHIMAZOLE 5MG TABLET PO SCH (08:53)
[2022-09-03] MEDS: CITALOPRAM HYDROBROMIDE 10MG TABLET PO SCH (08:53)
[2022-09-03] MEDS: INSULIN GLARGINE 100 UNITS/ML SUBCUT SCH ×2 (10:18→21:24)
[2022-09-03 12:00] VITALS: BP 139/71
[2022-09-03 16:00] VITALS: BP 134/76
[2022-09-03 20:00] VITALS: BP 112/60
[2022-09-04] VITALS: BP 135/69
[2022-09-04] MEDS: IPRATROPIUM BROMIDE (0.02%) 0.5MG/2.5ML NEB HHN SCH ×4 (02:02→20:56)
[2022-09-04] MEDS: ALBUTEROL (0.083%) 2.5MG/3ML NEB HHN SCH ×4 (02:03→20:56)
[2022-09-04 04:00] VITALS: BP 133/79
[2022-09-04] MEDS: HYDROCODONE/ACETAMINOPHEN 7.5/325MG TABLET PO PRN ×5 (06:28→23:04)
[2022-09-04] MEDS: INSULIN LISPRO 100 UNITS/ML SUBCUT SCH ×3 (06:46→17:43)
[2022-09-04 07:02] LABS: HEMATOCRIT. 27.6 % (36.0-48.0); HEMOGLOBIN. 8.9 g/dL (12.0-16.0); MEAN CORPUSCULAR HEMOGLOBIN 24.9 pg (28.0-32.0); MEAN CORPUSCULAR VOLUME 77.4 fL (81.0-99.0); MEAN PLATELET VOLUME 7.7 fl (7.4-10.4); PLATELET 328 x1000/uL (130-400); RED BLOOD CELL COUNT 3.56 mill/uL (4.2-5.4); RED CELL DISTRIBUTION WIDTH 18.2 % (11.6-14.6)
[2022-09-04 07:30] LABS: CHLORIDE 100 mEq/L (98-107)
[2022-09-04 08:00] VITALS: BP 128/66
[2022-09-04] MEDS: DOCUSATE SODIUM 100MG CAPSULE PO SCH ×3 (09:00→17:00)
[2022-09-04] MEDS: POLYETHYLENE GLYCOL 3350 (17GM) 1 DOSE PACK PO SCH ×2 (09:00→09:03)
[2022-09-04] MEDS ORDERED: METHYLPREDNISOLONE SOD SUCC 40 MG/ML VIAL IV SCH (09:00)
[2022-09-04] MEDS: FUROSEMIDE 40MG/4ML VIAL IV SCH ×2 (09:03→17:41)
[2022-09-04] MEDS: DILTIAZEM HCL 120MG CAPSULE ER 24HR PO SCH (09:04)
[2022-09-04] MEDS: CITALOPRAM HYDROBROMIDE 10MG TABLET PO SCH (09:04)
[2022-09-04] MEDS: LINAGLIPTIN 5MG TABLET PO SCH (09:05)
[2022-09-04] MEDS: FAMOTIDINE 20MG TABLET PO SCH ×2 (09:05→17:41)
[2022-09-04] MEDS: METHIMAZOLE 5MG TABLET PO SCH (09:05)
[2022-09-04] MEDS: APIXABAN 5 MG TABLET PO SCH ×2 (09:05→17:41)
[2022-09-04] MEDS: SPIRONOLACTONE 25MG TABLET PO SCH (09:06)
[2022-09-04] MEDS: FERROUS SULFATE 325MG TABLET PO SCH ×3 (09:06→17:41)
[2022-09-04] MEDS: POTASSIUM CHLORIDE 20MEQ TABLET SR PO SCH (09:06)
[2022-09-04] MEDS: GLIMEPIRIDE 2MG TABLET PO SCH (09:06)
[2022-09-04] MEDS: INSULIN GLARGINE 100 UNITS/ML SUBCUT SCH ×2 (09:07→21:58)
[2022-09-04 12:00] VITALS: BP 103/48
[2022-09-04 13:12] LABS: PLATELET ESTIMATE NORMAL
[2022-09-04 16:00] VITALS: BP 137/70
[2022-09-04 20:00] VITALS: BP 123/72
[2022-09-05] VITALS: BP 120/72
[2022-09-05] MEDS: IPRATROPIUM BROMIDE (0.02%) 0.5MG/2.5ML NEB HHN SCH ×4 (01:31→20:39)
[2022-09-05] MEDS: ALBUTEROL (0.083%) 2.5MG/3ML NEB HHN SCH ×4 (01:31→20:39)
[2022-09-05 04:00] VITALS: BP 136/82
[2022-09-05] MEDS: HYDROCODONE/ACETAMINOPHEN 7.5/325MG TABLET PO PRN ×6 (05:26→22:36)
[2022-09-05] MEDS: FERROUS SULFATE 325MG TABLET PO SCH ×3 (06:31→18:32)
[2022-09-05] MEDS: INSULIN LISPRO 100 UNITS/ML SUBCUT SCH ×3 (06:32→18:47)
[2022-09-05 07:37] LABS: BASOPHILS % 0.1 % (0.0-2.0); EOSINOPHILS % 0.1 % (0.0-5.0); HEMATOCRIT. 29.2 % (36.0-48.0); HEMOGLOBIN. 9.3 g/dL (12.0-16.0); LYMPHOCYTES % 10.2 % (20.0-50.0); MEAN CORPUSCULAR HEMOGLOBIN 24.3 pg (28.0-32.0); MEAN CORPUSCULAR VOLUME 76.5 fL (81.0-99.0); MEAN PLATELET VOLUME 7.7 fl (7.4-10.4); NEUTROPHILS % 79.6 % (40.0-76.0); PLATELET 371 x1000/uL (130-400); RED BLOOD CELL COUNT 3.81 mill/uL (4.2-5.4); RED CELL DISTRIBUTION WIDTH 18.1 % (11.6-14.6)
[2022-09-05 08:00] VITALS: BP_SYST 129; BP_SYST 161; BP_DIAS 76; BP_DIAS 82
[2022-09-05 08:42] LABS: CHLORIDE 99 mEq/L (98-107)
[2022-09-05] MEDS: DOCUSATE SODIUM 100MG CAPSULE PO SCH ×2 (09:00→17:00)
[2022-09-05] MEDS: POLYETHYLENE GLYCOL 3350 (17GM) 1 DOSE PACK PO SCH (09:00)
[2022-09-05] MEDS: METHIMAZOLE 5MG TABLET PO SCH ×2 (09:31→09:35)
[2022-09-05] MEDS: DILTIAZEM HCL 120MG CAPSULE ER 24HR PO SCH ×2 (09:31→09:35)
[2022-09-05] MEDS: LINAGLIPTIN 5MG TABLET PO SCH (09:32)
[2022-09-05] MEDS: APIXABAN 5 MG TABLET PO SCH ×2 (09:36→18:32)
[2022-09-05] MEDS: PREDNISONE 10MG TABLET PO SCH (09:36)
[2022-09-05] MEDS: CITALOPRAM HYDROBROMIDE 10MG TABLET PO SCH (09:36)
[2022-09-05] MEDS: GLIMEPIRIDE 2MG TABLET PO SCH (09:36)
[2022-09-05] MEDS: SPIRONOLACTONE 25MG TABLET PO SCH (09:37)
[2022-09-05] MEDS: FAMOTIDINE 20MG TABLET PO SCH ×2 (09:37→18:32)
[2022-09-05] MEDS: FUROSEMIDE 40MG TABLET PO SCH ×2 (09:37→21:44)
[2022-09-05] MEDS: POTASSIUM CHLORIDE 20MEQ TABLET SR PO SCH (09:37)
[2022-09-05] MEDS: INSULIN GLARGINE 100 UNITS/ML SUBCUT SCH ×2 (09:52→21:43)
[2022-09-05 16:00] VITALS: BP 110/49
[2022-09-05 20:00] VITALS: BP 126/67
[2022-09-06] VITALS: BP_SYST 123; BP_SYST 140; BP_DIAS 59; BP_DIAS 68
[2022-09-06] MEDS: IPRATROPIUM BROMIDE (0.02%) 0.5MG/2.5ML NEB HHN SCH ×3 (01:03→14:11)
[2022-09-06] MEDS: ALBUTEROL (0.083%) 2.5MG/3ML NEB HHN SCH ×3 (01:03→14:11)
[2022-09-06 04:00] VITALS: BP 140/68
[2022-09-06] MEDS: INSULIN LISPRO 100 UNITS/ML SUBCUT SCH ×3 (05:45→17:58)
[2022-09-06 08:00] VITALS: BP 133/65
[2022-09-06] MEDS ORDERED: HYDROCODONE/ACETAMINOPHEN 7.5/325MG TABLET PO PRN (08:45)
[2022-09-06] MEDS: POLYETHYLENE GLYCOL 3350 (17GM) 1 DOSE PACK PO SCH (09:00)
[2022-09-06] MEDS: GLIMEPIRIDE 2MG TABLET PO SCH (09:14)
[2022-09-06] MEDS: CITALOPRAM HYDROBROMIDE 10MG TABLET PO SCH (09:15)
[2022-09-06] MEDS: DOCUSATE SODIUM 100MG CAPSULE PO SCH ×2 (09:15→17:55)
[2022-09-06] MEDS: LINAGLIPTIN 5MG TABLET PO SCH (09:15)
[2022-09-06] MEDS: APIXABAN 5 MG TABLET PO SCH ×2 (09:15→17:55)
[2022-09-06] MEDS: FERROUS SULFATE 325MG TABLET PO SCH ×3 (09:15→17:55)
[2022-09-06] MEDS: PREDNISONE 10MG TABLET PO SCH (09:15)
[2022-09-06] MEDS: FUROSEMIDE 40MG TABLET PO SCH ×2 (09:15→21:13)
[2022-09-06] MEDS: SPIRONOLACTONE 25MG TABLET PO SCH (09:17)
[2022-09-06] MEDS: POTASSIUM CHLORIDE 20MEQ TABLET SR PO SCH (09:17)
[2022-09-06] MEDS: FAMOTIDINE 20MG TABLET PO SCH ×2 (09:17→17:55)
[2022-09-06] MEDS: HYDROCODONE/ACETAMINOPHEN 7.5/325MG TABLET PO PRN ×4 (09:18→22:23)
[2022-09-06] MEDS: INSULIN GLARGINE 100 UNITS/ML SUBCUT SCH ×2 (09:30→22:00)
[2022-09-06 12:00] VITALS: BP 133/72
[2022-09-06 16:00] VITALS: BP 109/65
[2022-09-06 17:07] LABS: BASOPHILS % 0.1 % (0.0-2.0); EOSINOPHILS % 0.3 % (0.0-5.0); HEMATOCRIT. 36.1 % (36.0-48.0); HEMOGLOBIN. 11.3 g/dL (12.0-16.0); LYMPHOCYTES % 7.5 % (20.0-50.0); MEAN CORPUSCULAR HEMOGLOBIN 24.5 pg (28.0-32.0); MEAN CORPUSCULAR VOLUME 77.9 fL (81.0-99.0); MEAN PLATELET VOLUME 7.7 fl (7.4-10.4); MONOCYTES % 7.6 % (2.0-8.0); NEUTROPHILS % 84.5 % (40.0-76.0); PLATELET 493 x1000/uL (130-400); RED BLOOD CELL COUNT 4.64 mill/uL (4.2-5.4); RED CELL DISTRIBUTION WIDTH 18.3 % (11.6-14.6)
[2022-09-07] VITALS: BP 126/73
[2022-09-07] MEDS: HYDROCODONE/ACETAMINOPHEN 7.5/325MG TABLET PO PRN ×3 (04:16→15:01)
[2022-09-07] MEDS: INSULIN LISPRO 100 UNITS/ML SUBCUT SCH ×3 (05:58→16:35)
[2022-09-07] MEDS: FERROUS SULFATE 325MG TABLET PO SCH ×3 (06:14→16:35)
[2022-09-07 06:39] LABS: HEMATOCRIT. 34.9 % (36.0-48.0); HEMOGLOBIN. 11.1 g/dL (12.0-16.0); MEAN CORPUSCULAR HEMOGLOBIN 24.6 pg (28.0-32.0); MEAN CORPUSCULAR VOLUME 77.2 fL (81.0-99.0); MEAN PLATELET VOLUME 7.5 fl (7.4-10.4); PLATELET 454 x1000/uL (130-400); RED BLOOD CELL COUNT 4.52 mill/uL (4.2-5.4); RED CELL DISTRIBUTION WIDTH 18.5 % (11.6-14.6)
[2022-09-07 07:29] LABS: CHLORIDE 93 mEq/L (98-107)
[2022-09-07 08:00] VITALS: BP 133/81
[2022-09-07] MEDS: DILTIAZEM HCL 120MG CAPSULE ER 24HR PO SCH (08:25)
[2022-09-07] MEDS: POTASSIUM CHLORIDE 20MEQ TABLET SR PO SCH (08:27)
[2022-09-07] MEDS: LINAGLIPTIN 5MG TABLET PO SCH (08:27)
[2022-09-07] MEDS: DOCUSATE SODIUM 100MG CAPSULE PO SCH ×2 (08:27→16:35)
[2022-09-07] MEDS: GLIMEPIRIDE 2MG TABLET PO SCH (08:27)
[2022-09-07] MEDS: SPIRONOLACTONE 25MG TABLET PO SCH (08:27)
[2022-09-07] MEDS: FUROSEMIDE 40MG TABLET PO SCH (08:27)
[2022-09-07] MEDS: APIXABAN 5 MG TABLET PO SCH ×2 (08:27→16:35)
[2022-09-07] MEDS: METHIMAZOLE 5MG TABLET PO SCH (08:28)
[2022-09-07] MEDS: POLYETHYLENE GLYCOL 3350 (17GM) 1 DOSE PACK PO SCH (08:28)
[2022-09-07] MEDS: CITALOPRAM HYDROBROMIDE 10MG TABLET PO SCH (08:31)
[2022-09-07] MEDS: FAMOTIDINE 20MG TABLET PO SCH ×2 (08:31→16:35)
[2022-09-07] MEDS: INSULIN GLARGINE 100 UNITS/ML SUBCUT SCH (09:07)
[2022-09-07 12:00] VITALS: BP 97/76
[2022-09-07 13:12] LABS: PLATELET ESTIMATE INCREASED
[2022-09-07 15:53] VITALS: BP 114/75
[2022-09-07 16:00] VITALS: BP 135/78
== END 2022-09-07 21:19 | DRG 291 ==
LOC: ER 19:07 → MICUSO 22:29 → 7EST 09-01 05:05
PROVIDERS: ADMIT Hospitalist; ATTEND Hospitalist
PROC: 5A09357 Assistance with Respiratory Ventilation, Less than 24 Consecutive Hours, Continuous Positive Airway Pressure (ICD-10-PCS; principal; 2022-09-01)
PROC: 5A09357 Assistance with Respiratory Ventilation, Less than 24 Consecutive Hours, Continuous Positive Airway Pressure (ICD-10-PCS; 2022-09-02)
PROC: 5A09357 Assistance with Respiratory Ventilation, Less than 24 Consecutive Hours, Continuous Positive Airway Pressure (ICD-10-PCS; 2022-09-03)
PROC: 5A09357 Assistance with Respiratory Ventilation, Less than 24 Consecutive Hours, Continuous Positive Airway Pressure (ICD-10-PCS; 2022-09-04)
PROC: 5A09357 Assistance with Respiratory Ventilation, Less than 24 Consecutive Hours, Continuous Positive Airway Pressure (ICD-10-PCS; 2022-09-05)
PROC: 5A09357 Assistance with Respiratory Ventilation, Less than 24 Consecutive Hours, Continuous Positive Airway Pressure (ICD-10-PCS; 2022-09-06)
PROC: 5A09357 Assistance with Respiratory Ventilation, Less than 24 Consecutive Hours, Continuous Positive Airway Pressure (ICD-10-PCS; 2022-09-07)
DX: I11.0 Hypertensive heart disease with heart failure (principal); I50.33 Acute on chronic diastolic (congestive) heart failure; J96.01 Acute respiratory failure with hypoxia; J44.1 Chronic obstructive pulmonary disease with (acute) exacerbation; E44.1 Mild protein-calorie malnutrition; I48.20 Chronic atrial fibrillation, unspecified; I48.92 Unspecified atrial flutter; J81.1 Chronic pulmonary edema; Z68.41 Body mass index [BMI] 40.0-44.9, adult; D50.9 Iron deficiency anemia, unspecified; E66.01 Morbid (severe) obesity due to excess calories; E11.65 Type 2 diabetes mellitus with hyperglycemia; E78.5 Hyperlipidemia, unspecified; I48.0 Paroxysmal atrial fibrillation; Z20.822 Contact with and (suspected) exposure to COVID-19; G47.33 Obstructive sleep apnea (adult) (pediatric); I45.10 Unspecified right bundle-branch block; I27.81 Cor pulmonale (chronic); I07.1 Rheumatic tricuspid insufficiency; Z95.0 Presence of cardiac pacemaker; Z87.891 Personal history of nicotine dependence; Z79.51 Long term (current) use of inhaled steroids; Z99.81 Dependence on supplemental oxygen; Z82.49 Family history of ischemic heart disease and other diseases of the circulatory system; Z79.899 Other long term (current) drug therapy; Z79.4 Long term (current) use of insulin; Z79.01 Long term (current) use of anticoagulants
CPT/HCPCS: 36415; 36600; 71045; 80048; 80053; 80061; 82375; 82550; 82553; 82607; 82728; 82805; 82962; 83036; 83540; 83550; 83735; 83880; 84100; 84145; 84439; 84443; 84481; 84484; 85025; 85379; 87426; 87804; 93005; 93306; 93970; 94640; 94660; 97110; 97162; 97166; 99285; C9113; J0456; J1815; J1940; J2920; J2930; J7512; J7626

== ENCOUNTER 2023-08-23 13:47 | Inpatient (IN) | payer MEDICARE, MEDICAID ==
[~2023-08-23] VITALS: Ht 162.6 cm; Wt 103.9 kg
[~2023-08-23 13:47] MED LIST changes: -MORP15TA54 PO; -MULT-1146 MT; -POTA-205 PO; +SULF1TAB48 MT; -TOPUD PO; -ZOLP5TAB2 MT
[2023-08-23] MEDS ORDERED: ONDANSETRON HCL 4MG/2ML INJ IV PRN (14:30)
[2023-08-23] MEDS ORDERED: CLONIDINE 0.1MG TABLET PO PRN (14:30)
[2023-08-23] MEDS ORDERED: ACETAMINOPHEN 325MG TABLET PO PRN (14:30)
[2023-08-23] MEDS: AMLODIPINE 5MG TABLET PO NR (14:45)
[2023-08-23 15:01] LABS: BASOPHILS % 0.3 % (0.0-2.0); EOSINOPHILS % 4.6 % (0.0-5.0); HEMATOCRIT. 32.7 % (36.0-48.0); HEMOGLOBIN. 10.6 g/dL (12.0-16.0); LYMPHOCYTES % 29.2 % (20.0-50.0); MEAN CORPUSCULAR HEMOGLOBIN 26.6 pg (28.0-32.0); MEAN CORPUSCULAR HGB CONC 32.5 g/dL (31.0-37.0); MEAN CORPUSCULAR VOLUME 81.9 fL (81.0-99.0); MEAN PLATELET VOLUME 7.4 fl (7.4-10.4); MONOCYTES % 8.7 % (2.0-8.0); NEUTROPHILS % 57.2 % (40.0-76.0); PLATELET 288 x1000/uL (130-400); RED BLOOD CELL COUNT 3.99 mill/uL (4.2-5.4); RED CELL DISTRIBUTION WIDTH 17.2 % (11.6-14.6); WHITE BLOOD COUNT 6.9 x1000/uL (4.5-11.0)
[2023-08-23 15:12] LABS: INR 0.9; PARTIAL THROMBOPLASTIN TIME 30.7 sec (23.4-31.0); PROTHROMBIN TIME 10.5 sec (9.6-11.0)
[2023-08-23] MEDS ORDERED: FURO40TA5 PO (15:14)
[2023-08-23] MEDS ORDERED: CITA40TA69 PO (15:14)
[2023-08-23 15:19] LABS: ALANINE AMINOTRANSFERASE 9 IU/L (10-49); ALBUMIN 4.6 g/dL (3.2-4.8); ASPARTATE AMINOTRANSFERASE 11 IU/L (<34); BILIRUBIN TOTAL 0.2 mg/dL (0.1-1.0); CALCIUM 9.1 mg/dL (8.7-10.4); CARBON DIOXIDE 29 mEq/L (21-32); CHLORIDE 104 mEq/L (98-107); GLUCOSE 117 mg/dL (70-105); POTASSIUM 3.8 mEq/L (3.5-5.1); PROTEIN TOTAL 7.1 g/dL (6.0-8.3); SODIUM 139 mEq/L (136-145); TROPONIN I HIGH SENSITIVITY 10 ng/L (3.0-34); UREA NITROGEN BLOOD 21 mg/dL (9-23)
[2023-08-23] MEDS: ENOXAPARIN 80MG/0.8ML SYR SUBCUT NR (15:49)
[2023-08-23] MEDS: SPIRONOLACTONE 25MG TABLET PO SCH (15:49)
[2023-08-23] MEDS: DOCUSATE SODIUM 100MG CAPSULE PO SCH (17:28)
[2023-08-23] MEDS: MORPHINE SULFATE 2 MG/ML CPJ (NOT FOR IM USE) IV PRN (17:29)
[2023-08-23] MEDS: FUROSEMIDE 40MG TABLET PO SCH (17:29)
[2023-08-23] MEDS ORDERED: DILTIAZEM HCL 30MG TABLET PO SCH (18:00)
[2023-08-23 19:01] LABS: TROPONIN I HIGH SENSITIVITY 10 ng/L (3.0-34)
[2023-08-23] MEDS: HYDRALAZINE HCL 25MG TABLET PO SCH (21:20)
[2023-08-24] VITALS: BP 124/68; PULSE 88; RESP 18; TEMP 98.1
[2023-08-24 01:58] LABS: TROPONIN I HIGH SENSITIVITY 9 ng/L (3.0-34)
[2023-08-24 06:24] LABS: BASOPHILS % 0.2 % (0.0-2.0); DIFFERENTIAL COMMENT 0; EOSINOPHILS % 4.6 % (0.0-5.0); HEMATOCRIT. 33.1 % (36.0-48.0); HEMOGLOBIN. 11.1 g/dL (12.0-16.0); LYMPHOCYTES % 26.8 % (20.0-50.0); MEAN CORPUSCULAR HEMOGLOBIN 26.7 pg (28.0-32.0); MEAN CORPUSCULAR HGB CONC 33.6 g/dL (31.0-37.0); MEAN CORPUSCULAR VOLUME 79.6 fL (81.0-99.0); MEAN PLATELET VOLUME 7.9 fl (7.4-10.4); MONOCYTES % 8.8 % (2.0-8.0); NEUTROPHILS % 59.6 % (40.0-76.0); PLATELET 280 x1000/uL (130-400); RED BLOOD CELL COUNT 4.16 mill/uL (4.2-5.4); RED CELL DISTRIBUTION WIDTH 17.2 % (11.6-14.6); WHITE BLOOD COUNT 6.8 x1000/uL (4.5-11.0)
[2023-08-24 06:36] LABS: TROPONIN I HIGH SENSITIVITY 10 ng/L (3.0-34)
[2023-08-24] MEDS ORDERED: ASPIRIN/SOD BICARB/CITRIC ACID 324MG TAB EFF ONE ×2 (07:22→07:29)
[2023-08-24] MEDS ORDERED: LIDOCAINE HCL 1% 20ML VIAL (Pyxis) INJ ONE (07:29)
[2023-08-24] MEDS ORDERED: HEPARIN 1000 UNITS/ML 10ML ONE (07:29)
[2023-08-24] MEDS ORDERED: IODIXANOL 320MG/ML 100 ML BOTTLE IV ONE (07:29)
[2023-08-24 07:40] LABS: ALANINE AMINOTRANSFERASE 10 IU/L (10-49); ALBUMIN 4.5 g/dL (3.2-4.8); ASPARTATE AMINOTRANSFERASE 11 IU/L (<34); BILIRUBIN TOTAL 0.2 mg/dL (0.1-1.0); CALCIUM 9.2 mg/dL (8.7-10.4); CARBON DIOXIDE 29 mEq/L (21-32); CHLORIDE 102 mEq/L (98-107); CHOLESTEROL 210 mg/dL (<200); CREATININE 0.9 mg/dL (0.6-1.0); GLUCOSE 97 mg/dL (70-105); HDL CHOLESTEROL 42 mg/dL (>65); LDL CHOLESTEROL 149 mg/dL (5-100); POTASSIUM 4.1 mEq/L (3.5-5.1); PROTEIN TOTAL 6.7 g/dL (6.0-8.3); SODIUM 138 mEq/L (136-145); THYROID STIMULATING HORMONE 2.53 uIU/mL (0.55-4.78); TRIGLYCERIDE 120 mg/dL (0-150); UREA NITROGEN BLOOD 22 mg/dL (9-23)
[2023-08-24 08:00] VITALS: BP 111/50; PULSE 86; RESP 18; TEMP 98
[2023-08-24] MEDS: ASPIRIN 81MG TABLET PO SCH (08:19)
[2023-08-24] MEDS: AMLODIPINE 10MG TABLET PO SCH (08:22)
[2023-08-24] MEDS ORDERED: MIDAZOLAM HCL 2 MG/2 ML VIAL ONE (08:34)
[2023-08-24] MEDS ORDERED: FENTANYL CITRATE/PF 50MCG/ML 2ML VIAL ONE (08:34)
[2023-08-24] MEDS ORDERED: MEDICATION NOT ON FORMULARY EA (Diltiazem Hcl (Cardizem Cd) 1 CAP) MT SCH (09:00)
[2023-08-24] MEDS ORDERED: MEDICATION NOT ON FORMULARY EA (Escitalopram Oxalate (Lexapro) 20 MG) PO SCH (09:00)
[2023-08-24] MEDS ORDERED: MORPHINE SULFATE 2 MG/ML CPJ (NOT FOR IM USE) IV PRN (09:30)
[2023-08-24] MEDS ORDERED: NALOXONE HCL 0.4MG/ML VIAL IV PRN (09:30)
[2023-08-24] MEDS ORDERED: ACETAMINOPHEN 325MG TABLET PO PRN (09:30)
[2023-08-24] MEDS ORDERED: ATROPINE SULFATE 1MG/10ML SYR IV PRN (09:30)
[2023-08-24] MEDS ORDERED: ONDANSETRON HCL 4MG/2ML INJ IV PRN (09:30)
[2023-08-24] MEDS: CITALOPRAM HYDROBROMIDE 10MG TABLET PO SCH (10:09)
[2023-08-24] MEDS: METHIMAZOLE 5MG TABLET PO SCH (10:10)
[2023-08-24] MEDS: HYDROCODONE/ACETAMINOPHEN 10/325MG TABLET PO PRN ×2 (10:19→16:00)
[2023-08-24] MEDS: SODIUM CHLORIDE 0.45% 1,000 ML IV ONE (10:20)
[2023-08-24 12:00] VITALS: BP 97/44; PULSE 89; RESP 22; TEMP 98.2
[2023-08-24] MEDS ORDERED: DEXTROSE 50% WATER 50ML SYRINGE IV PRN (12:30)
[2023-08-24 16:00] VITALS: BP 122/78; PULSE 91; RESP 23; TEMP 98.3
[2023-08-24] MEDS: BLOOD SUGAR DIAGNOSTIC STRIP TEST SCH (16:00)
[2023-08-24] MEDS: INSULIN LISPRO 100 UNITS/ML SUBCUT SCH (17:39)
[2023-08-24 20:00] VITALS: BP 124/55; PULSE 89; RESP 22; TEMP 97.4
[2023-08-24] MEDS: ATORVASTATIN CALCIUM 20MG TABLET PO SCH (20:38)
[2023-08-25] VITALS (8 sets, daily range): BP systolic 120–144; BP diastolic 58–88; PULSE 87–89; RESP 15–21; TEMP 97.1–98.6; O2SAT 98
[2023-08-25 06:22] LABS: BASOPHILS % 0.6 % (0.0-2.0); EOSINOPHILS % 4.9 % (0.0-5.0); HEMATOCRIT. 32.2 % (36.0-48.0); HEMOGLOBIN. 10.5 g/dL (12.0-16.0); LYMPHOCYTES % 24.4 % (20.0-50.0); MEAN CORPUSCULAR HEMOGLOBIN 26.6 pg (28.0-32.0); MEAN CORPUSCULAR HGB CONC 32.6 g/dL (31.0-37.0); MEAN CORPUSCULAR VOLUME 81.6 fL (81.0-99.0); MEAN PLATELET VOLUME 7.6 fl (7.4-10.4); MONOCYTES % 11.7 % (2.0-8.0); NEUTROPHILS % 58.4 % (40.0-76.0); PLATELET 271 x1000/uL (130-400); RED BLOOD CELL COUNT 3.95 mill/uL (4.2-5.4); RED CELL DISTRIBUTION WIDTH 16.9 % (11.6-14.6); WHITE BLOOD COUNT 6.1 x1000/uL (4.5-11.0)
[2023-08-25 06:52] LABS: CALCIUM 9.1 mg/dL (8.7-10.4); CARBON DIOXIDE 30 mEq/L (21-32); CHLORIDE 103 mEq/L (98-107); CREATININE 0.9 mg/dL (0.6-1.0); GLUCOSE 146 mg/dL (70-105); POTASSIUM 3.7 mEq/L (3.5-5.1); SODIUM 139 mEq/L (136-145); UREA NITROGEN BLOOD 22 mg/dL (9-23)
[2023-08-25] MEDS: APIXABAN 5 MG TABLET PO SCH (08:27)
[2023-08-26] VITALS: BP 130/75; PULSE 100; RESP 11; TEMP 97.4
[2023-08-26 04:00] VITALS: BP 141/72; PULSE 99; RESP 15; TEMP 97.3
[2023-08-26 08:01] VITALS: BP 135/79; PULSE 88; RESP 11; TEMP 97.4
[2023-08-26] MEDS: IPRATROPIUM/ALBUTEROL 0.5-3(2.5)MG/3ML NEB HHN PRN (09:15)
[2023-08-26 09:16] VITALS: PULSE 84; RESP 18; O2SAT 99
[2023-08-26 12:00] VITALS: BP 115/69; PULSE 89; RESP 12; TEMP 98
== END 2023-08-26 16:15 | DRG 287 ==
LOC: ER 13:47 → SUPCPDRO 14:01 → EDBEDREQ 14:02 → 3WST 14:04 → EDBEDREQ 14:08
PROVIDERS: ADMIT Internal Medicine Nephrology; ATTEND Internal Medicine Nephrology
PROC: 4A023N7 Measurement of Cardiac Sampling and Pressure, Left Heart, Percutaneous Approach (ICD-10-PCS; principal; 2023-08-24)
PROC: B2111ZZ Fluoroscopy of Multiple Coronary Arteries using Low Osmolar Contrast (ICD-10-PCS; 2023-08-24)
DX: I25.118 Atherosclerotic heart disease of native coronary artery with other forms of angina pectoris (principal); I48.92 Unspecified atrial flutter; I50.32 Chronic diastolic (congestive) heart failure; J96.11 Chronic respiratory failure with hypoxia; J96.12 Chronic respiratory failure with hypercapnia; I11.0 Hypertensive heart disease with heart failure; D50.9 Iron deficiency anemia, unspecified; E03.9 Hypothyroidism, unspecified; E11.9 Type 2 diabetes mellitus without complications; E66.01 Morbid (severe) obesity due to excess calories; E78.5 Hyperlipidemia, unspecified; G47.33 Obstructive sleep apnea (adult) (pediatric); G89.29 Other chronic pain; I27.81 Cor pulmonale (chronic); M19.09 Primary osteoarthritis, other specified site; I48.91 Unspecified atrial fibrillation; J44.9 Chronic obstructive pulmonary disease, unspecified; I27.21 Secondary pulmonary arterial hypertension; Z79.4 Long term (current) use of insulin; Z79.01 Long term (current) use of anticoagulants; Z95.0 Presence of cardiac pacemaker; Z79.84 Long term (current) use of oral hypoglycemic drugs; Z79.899 Other long term (current) drug therapy; Z82.49 Family history of ischemic heart disease and other diseases of the circulatory system; Z87.891 Personal history of nicotine dependence; Z99.81 Dependence on supplemental oxygen; Z90.710 Acquired absence of both cervix and uterus; Z98.41 Cataract extraction status, right eye; Z98.42 Cataract extraction status, left eye; Z68.36 Body mass index [BMI] 36.0-36.9, adult
CPT/HCPCS: 36415; 71045; 80048; 80053; 80061; 82962; 83735; 83880; 84443; 84484; 85025; 86850; 86900; 93005; 93306; 93458; 93970; 93971; 94640; 99285; A6261; C1769; C1887; C1893; J1644; J1650; J1815; J2250; J2270; J3010; J3490; Q9967